=== PATIENT | female | born 1985 | race Caucasian/White ===

== ENCOUNTER → 2019-09-20 14:32 | Outpatient (BNVA) | payer MEDICARE, SELFPAY | PROVIDERS: Family Provider Family Medicine; PCP Family Medicine; Visit Provider Family Medicine | DX: E11.9 Type 2 diabetes mellitus without complications (principal); I10 Essential (primary) hypertension; F32.9 Major depressive disorder, single episode, unspecified; M62.838 Other muscle spasm; R60.0 Localized edema; K21.9 Gastro-esophageal reflux disease without esophagitis; G56.01 Carpal tunnel syndrome, right upper limb; F17.219 Nicotine dependence, cigarettes, with unspecified nicotine-induced disorders | CPT/HCPCS: 36415; 80053; 80061; 82044; 83036; 85025 ==

== ENCOUNTER 2019-10-01 22:08 | Emergency (ER) | payer MEDICARE, SELFPAY ==
[2019-10-01 22:14] VITALS: BP 143/96; PULSE 88; RESP 16; TEMP 36.4; O2SAT 97; BMI 68.3
--- NOTE | 2019-10-01 22:18 | W.ED.ABDPA2 ---
HPI - Abdominal Pain General: Chief Complaint: Abdominal Pain Stated Complaint: r sided pain Time Seen by Provider: 10/01/19 22:17 Source: patient Mode of arrival: ambulatory Limitations: no limitations History of Present Illness: HPI narrative: Patient is a 34-year-old female who presents to ED today with complaints of right-sided abdominal pain that began today; patient states approximately a month ago she was seen here for similar symptoms; patient states pain lasted 2 days and then subsided on its own; patient was told she had elevated LFTs; she is supposed to be receiving an outpatient gallbladder ultrasound because of this; she denies nausea, vomiting, diarrhea, constipation; she denies urinary symptoms, vaginal discharge, vaginal odor; no fever/chills MD elicited complaint: abdominal pain Onset (ago): hour(s) Pain Consistency: constant Location: None Exacerbating factors: nothing Relieving factors: nothing Associated Symptoms: Reports no associated symptoms; Denies change in bowel habits, chills, coffee ground emesis, diarrhea, dysuria, excessive flatus, fever(s), heartburn, hematochezia, hematemesis, fecal incontinence, melena, nausea, syncope and vomiting Review of Systems Const: Denies: fever or chills Eyes: Denies: change in vision or blurry vision ENMT: Denies: enlarged tonsils or painful swallowing Card: Denies: chest pain, palpitations, irregular heart rhythm, lightheadedness, syncope or shortness of breath on exertion Resp: Denies: shortness of breath, productive cough or pain on inspiration GI: Reports: abdominal pain; Denies: nausea, vomiting, vomiting blood, coffee grounds in vomit, difficulty swallowing, heartburn/indigestion, diarrhea, excessive passing of gas, fecal incontinence, change in bowel habits, painful bowel movements, rectal pain, blood in stool, black tarry stool or white/light colored stool : Denies: flank pain, difficulty urinating, painful urination, urinary frequency, urinary urgency or urinary hesitancy Musc: Denies: neck pain, back pain or joint pain Skin/Breast: Denies: rash Neuro: Denies: headache PFSH ED PFSH: Statuses (acute, chronic, etc) shown below reflect problem list status as previously entered and may not be historically accurate Medical History (Updated 10/02/19 @ 00:06 by KAMRON Boo) Benign essential HTN (Chronic) Bilateral chronic knee pain (Acute) Bilateral leg edema (Chronic) Diabetes mellitus, without long-term current use of insulin (Chronic) GERD (gastroesophageal reflux disease) (Chronic) Muscle spasms of both lower extremities (Acute) Prolonged depression (Chronic) Surgical History (Updated 09/20/19 @ 11:15 by Celina Ruiz DO) History of cholecystectomy (Acute) Social History (Updated 09/20/19 @ 11:02 by Radha Mcrae LPN) Smoking and tobacco status: current every day smoker cigarettes Packs smoked per day: 1 Alcohol intake: current Alcohol intake frequency: holidays/special occasions only Physical Exam Const: COMMON NORMALS: no apparent distress, oriented x3 and alert NUTRITIONAL APPEARANCE: obese morbidly obese HENMT: COMMON NORMALS: normocephalic and head/scalp atraumatic HEAD & SCALP: normocephalic and atraumatic Neck/C-Spine: COMMON NORMALS: full ROM, no lymphadenopathy, supple and no meningeal signs Chest: COMMONS NORMALS: inspection of chest normal Resp: COMMON NORMALS: normal respiratory effort and clear to auscultation bilaterally AUSCULTATION: clear to auscultation bilaterally Cardio: COMMON NORMALS: regular rate and regular rhythm RATE: regular rate RHYTHM: regular rhythm GI: COMMON NORMALS: normal to inspection, nondistended, normoactive bowel sounds and soft to palpation PALPATION: Yes soft, Yes tender Details: RUQ and Yes hepatomegaly : COMMON NORMALS: Yes no CVA tenderness BLADDER/KIDNEY EXAM: Yes no CVA tenderness Back/Pelvis: COMMON NORMALS: no CVA tenderness and thoracic and lumbar spine normal to inspection Extremity: COMMON NORMALS: normal to inspection Neuro: COMMON NORMALS: oriented x3 SENSORIUM/ORIENTATION: Yes alert MENINGEAL SIGNS: Yes no meningeal signs Skin: COMMON NORMALS: no rashes or lesions noted GENERAL SKIN EXAM: no rashes or lesions noted Course Vital Signs: Vital signs: Vital Signs Temperature 97.6 F 10/01/19 22:14 Pulse Rate 88 10/01/19 22:14 Respiratory Rate 16 10/01/19 22:14 Blood Pressure 143/96 10/01/19 22:14 Pulse Oximetry 97 10/01/19 22:14 MDM - Abdominal Pain MDM Narrative: Medical decision making narrative: Patient's gallbladder ultrasound showing cholelithiasis; LFTs are normal here (ALT is slightly elevated); she has no evidence for an acute cholecystitis or other emergent process; recommend she follow-up with primary care provider for continued discomfort; if pain persists she can be referred to a general surgeon for a possible elective cholecystectomy Lab Data: Labs: Lab Results 10/01/19 10/01/19 10/01/19 Range/Units 22:28 22:28 22:28 WBC 13.0 H (4.0-10.0) 10^3/ uL RBC 4.77 (4.1-5.3) 10^6/u L Hgb 13.7 (11.5-15.3) g/dL Hct 41.0 (37.0-47.0) % MCV 86.0 (81-99) fL MCH 28.7 (28.0-34.0) pg MCHC 33.4 (30.0-36.0) g/dL RDW 12.4 (12.1-15.1) % Plt Count 269 (130-400) 10^3/c mm MPV 11.4 H (7.4-10.4) fL Neut % (Auto) 72.0 % Lymph % (Auto) 18.6 % [place] % (Auto) 6.7 % Eos % (Auto) 1.5 % Baso % (Auto) 0.4 % Neut # (Auto) 9.3 H (1.8-7.7) 10^3/u L Lymph # (Auto) 2.4 (0.8-4.8) 10^3/u L [place] # (Auto) 0.9 (0.2-0.9) 10^3/u L Eos # (Auto) 0.2 (0.0-0.8) 10^3/u L Baso # (Auto) 0.1 (0.0-0.1) 10^3/u L Nucleated RBC % (a uto) 0 % Nucleated RBCs # 0.0 /100WBC Sodium 135 L (136-145) mmol/L Potassium 4.1 (3.5-5.1) mmol/L Chloride 97 L (98-107) mmol/L Carbon Dioxide 24 (22-29) mmol/L Anion Gap 18.1 (5-19) BUN 16 (6-20) mg/dL Creatinine 0.7 (0.5-0.9) mg/dL GFR Calculation 97.0 (90-130) mL/min Glucose 236 H (74-109) mg/dL Calcium 9.4 (8.5-10.5) mg/dL Total Bilirubin 0.2 (0.15-1.2) mg/dL AST 20 (0-32) U/L ALT 54 H (0-33) U/L Alkaline Phosphata se 103 (35-105) IU/L Total Protein 7.5 (6.6-8.7) g/dL Albumin 4.0 (3.5-5.2) g/dL Globulin 3.5 (1.3-4.6) g/dL Lipase 29 (13-60) U/L HCG, Qual Negative (Negative) Urine Color (Yellow) Urine Appearance (CLEAR) Urine pH (5-7) Ur Specific Gravit y (1.005-1.030) Urine Protein (Negative) Urine Glucose (UA) (Normal) Urine Ketones (Negative) Urine Occult Blood (Negative) Urine Nitrate (Negative) Urine Bilirubin (NEGATIVE) Urine Urobilinogen (Negative) mg/dL Ur Leukocyte Maame ase (Negative) 10/01/19 Range/Units 23:04 WBC (4.0-10.0) 10^3/ uL RBC (4.1-5.3) 10^6/u L Hgb (11.5-15.3) g/dL Hct (37.0-47.0) % MCV (81-99) fL MCH (28.0-34.0) pg MCHC (30.0-36.0) g/dL RDW (12.1-15.1) % Plt Count (130-400) 10^3/c mm MPV (7.4-10.4) fL Neut % (Auto) % Lymph % (Auto) % [place] % (Auto) % Eos % (Auto) % Baso % (Auto) % Neut # (Auto) (1.8-7.7) 10^3/u L Lymph # (Auto) (0.8-4.8) 10^3/u L [place] # (Auto) (0.2-0.9) 10^3/u L Eos # (Auto) (0.0-0.8) 10^3/u L Baso # (Auto) (0.0-0.1) 10^3/u L Nucleated RBC % (a uto) % Nucleated RBCs # /100WBC Sodium (136-145) mmol/L Potassium (3.5-5.1) mmol/L Chloride (98-107) mmol/L Carbon Dioxide (22-29) mmol/L Anion Gap (5-19) BUN (6-20) mg/dL Creatinine (0.5-0.9) mg/dL GFR Calculation (90-130) mL/min Glucose (74-109) mg/dL Calcium (8.5-10.5) mg/dL Total Bilirubin (0.15-1.2) mg/dL AST (0-32) U/L ALT (0-33) U/L Alkaline Phosphata se (35-105) IU/L Total Protein (6.6-8.7) g/dL Albumin (3.5-5.2) g/dL Globulin (1.3-4.6) g/dL Lipase (13-60) U/L HCG, Qual (Negative) Urine Color Yellow (Yellow) Urine Appearance Clear (CLEAR) Urine pH 5 (5-7) Ur Specific Gravit y 1.020 (1.005-1.030) Urine Protein Neg (Negative) Urine Glucose (UA) Norm (Normal) Urine Ketones Negative (Negative) Urine Occult Blood Neg (Negative) Urine Nitrate Negative (Negative) Urine Bilirubin Neg (NEGATIVE) Urine Urobilinogen Norm (Negative) mg/dL Ur Leukocyte Maame ase Negative (Negative) Discharge Plan Discharge Patient Disposition: Home, Self-Care Clinical Impression: Cholelithiasis without cholecystitis Condition: Stable Prescriptions: No Action citalopram 20 mg tablet 20 mg PO ONCE Qty: 90 RF: 1 metformin 500 mg tablet 500 mg PO BID Qty: 180 RF: 1 lisinopril-hydrochlorothiazide 20-25 mg tablet 1 tab PO ONCE Qty: 90 RF: 1 cyclobenzaprine 10 mg tablet 10 mg PO TID Qty: 270 RF: 1 spironolactone 25 mg tablet 25 mg PO ONCE Qty: 90 RF: 1 atenolol 25 mg tablet 25 mg PO BID Qty: 180 RF: 1 omeprazole 40 mg capsule,delayed release(DR/EC) 40 mg PO ONCE Qty: 30 RF: 0 (DME) wrist splint Qty: 1 RF: 0 tramadol 50 mg tablet 50 mg PO Q8H PRN (Reason: Pain) RF: 0 albuterol sulfate [Ventolin HFA] 90 mcg/actuation HFA aerosol inhaler 2 puff INHALATION Q6H PRN (Reason: Shortness Of Breath Or Wheezing) RF: 0 Trulicity 0.75 mg/0.5 mL pen injector 0.75 mg SUBCUT .once weekly Qty: 2 RF: 0 Discharge Orders: Discharge Order (Routine); Ordered 10/02/19 Ordered By: Sissy Luke Referrals: Celina Ruiz DO [Primary Care Provider] - Discharge Diet: Usual diet Discharge Activity: Increase activity as tolerated Activity Restrictions/Additional Instructions: Follow up with primary care next week for continued symptoms. Return to the emergency department for worsening pain, repetitive episodes of vomiting, or fevers greater than 100.4. Coding Level of Care Code ED Associate Professor Of Sociology for Leonela Escobedo Exam Problem Focused
--- NOTE | 2019-10-01 22:26 | USR_ITS ---
PROCEDURE INFORMATION: Exam: US Abdomen Limited, Right Upper Quadrant Exam date and time: 10/02/2019 12:02 AM Age: 34 years old Clinical indication: Abdominal pain; Acute; Additional info: Ruq pain TECHNIQUE: Imaging protocol: Real-time ultrasound of the abdomen with image documentation. Examination was focused on the right upper quadrant. COMPARISON: CT Abdomen/Pelvis Renal [id number] 08/24/2019 10:58 PM FINDINGS: Liver: Slight increased echogenicity of the liver may indicate fatty infiltration. Otherwise unremarkable liver, no focal abnormality. Gallbladder: The technologist notes an echogenic area in the gallbladder fossa, thought to possibly represent a gallbladder contracted around stones. However, the comparison CT scan shows evidence that the patient has had a prior cholecystectomy. Therefore, sonographic appearance at this time likely represents bowel adjacent to the gallbladder fossa. No obvious/visible fluid collection in the region of the gallbladder fossa. Common bile duct: No significant biliary dilation, common duct measures 6.5 mm. Pancreas: Visible pancreas appears essentially unremarkable. Much of the pancreas is obscured by bowel gas. Right kidney: Images of the right kidney show no hydronephrosis. US/US gall bladder [id number] IMPRESSION: 1. Prior cholecystectomy, no significant biliary tree dilation. 2. Other findings discussed above.
[2019-10-01 22:36] LABS: Basophils # 0.1 10^3/uL (0.0-0.1); Basophils % 0.4 %; Eosinophils # 0.2 10^3/uL (0.0-0.8); Eosinophils % 1.5 %; Hemoglobin 13.7 g/dL (11.5-15.3); Lymphocytes # 2.4 10^3/uL (0.8-4.8); Lymphocytes % 18.6 %; Mean Corpuscular HGB Conc 33.4 g/dL (30.0-36.0); Mean Corpuscular Hemoglobin 28.7 pg (28.0-34.0); Mean Platelet Volume 11.4 fL (7.4-10.4); Monocytes # 0.9 10^3/uL (0.2-0.9); Monocytes % 6.7 %; Neutrophils # 9.3 10^3/uL (1.8-7.7); Nucleated Red Blood Cells % 0 %; Platelet Count 269 10^3/cmm (130-400); Red Blood Count 4.77 10^6/uL (4.1-5.3); Red Cell Distribution Width 12.4 % (12.1-15.1)
[2019-10-01 23:01] LABS: Alanine Aminotransferase 54 U/L (0-33); Alkaline Phosphatase 103 IU/L (35-105); Anion Gap 18.1 (5-19); Aspartate Amino Transferase 20 U/L (0-32); Blood Urea Nitrogen 16 mg/dL (6-20); Calcium 9.4 mg/dL (8.5-10.5); Carbon Dioxide 24 mmol/L (22-29); Chloride 97 mmol/L (98-107); Globulin 3.5 g/dL (1.3-4.6); Glucose 236 mg/dL (74-109); Lipase 29 U/L (13-60); Potassium 4.1 mmol/L (3.5-5.1); Sodium 135 mmol/L (136-145); Total Bilirubin 0.2 mg/dL (0.15-1.2); Total Protein 7.5 g/dL (6.6-8.7)
[2019-10-01 23:05] LABS: HCG, Serum Qual Negative (Negative)
[2019-10-01 23:08] LABS: Add Urine Microscopic? NO
[2019-10-01 23:09] LABS: Bilirubin Urine Neg (NEGATIVE); Blood Urine Neg (Negative); Glucose Urine UA Norm (Normal); Ketones Urine Negative (Negative); Leukocyte Esterase Urine Negative (Negative); Nitrate Urine Negative (Negative); Protein Urine Neg (Negative); Urine Appearance Clear (CLEAR); Urine Color Yellow (Yellow); Urobilinogen Urine Norm (Negative); pH Urine 5 (5-7)
[2019-10-01] MEDS: acetaminophen 500 mg Tablet 1000 MG PO (23:52)
[2019-10-02 00:13] VITALS: PULSE 88; RESP 18; O2SAT 95
== END 2019-10-02 00:14 | disposition home or self-care (01) ==
PROVIDERS: Emergency Provider Physician Assistant; Family Provider Family Medicine; PCP Family Medicine
DX: K80.20 Calculus of gallbladder without cholecystitis without obstruction (principal); Z79.84 Long term (current) use of oral hypoglycemic drugs; I10 Essential (primary) hypertension; E11.9 Type 2 diabetes mellitus without complications; F17.210 Nicotine dependence, cigarettes, uncomplicated; K21.9 Gastro-esophageal reflux disease without esophagitis
CPT/HCPCS: 36415; 76705; 80053; 81003; 83690; 84703; 85025; 99281

== ENCOUNTER 2019-10-19 12:21 | Emergency (ER) | payer MEDICARE, SELFPAY ==
[2019-10-19 12:35] VITALS: PULSE 92; RESP 22; TEMP 36.7; O2SAT 95; BMI 58.6
--- NOTE | 2019-10-19 12:40 | CT_ITS ---
WS: [id number] CT cervical spine. Additional two-dimensional coronal and sagittal reconstruction was performed. 10/19 Clinical Data: fall Comparison: None. DLP: 1207.[address] scans at [facility] use at least one of these dose optimization techniques: automat ed exposure control; mA and/or kV adjustment per patient size (includes targeted exams where dose is matched to clinical indication); or iterative reconstruction. Findings: No compression fractures are seen. The disc heights are normal. The spinous processes are in good ali gnment. The odontoid is unremarkable. There is no prevertebral soft tissue swelling. The soft tissues of the cervical spine in the lung apices are not remarkable. C2-C3: No disc bulge, canal stenosis or foraminal stenosis is seen. C3-C4: No disc bulge, canal stenosis or foraminal stenosis is seen. C4-C5: No disc bulge, canal stenosis or foraminal stenosis is seen. C5-C6: No disc bulge, canal stenosis or foraminal stenosis is seen. C6-C7: No disc bulge, canal stenosis or foraminal stenosis is seen. C7-T1: No disc bulge, canal stenosis or foraminal stenosis is seen. CT/CT cervical spin wo con* [id number] Impression: Negative CT scan of the cervical spine.
--- NOTE | 2019-10-19 12:40 | CT_ITS ---
WS: [id number] CT scan of the head, 10/19/2019 Clinical Data: loc/fall Comparison: None. DLP: 761.[address] scans at [facility] use at least one of these dose optimization techniques: automat ed exposure control; mA and/or kV adjustment per patient size (includes targeted exams where dose is matched to clinical indication); or iterative reconstruction. Findings: The ventricular system is normal without shift. No recent infarct or hemorrhage is seen. There are no abnormal intracerebral masses. The cerebellum and brainstem are not remarkable. Bony windows of the skull and skull base show no fractures or erosions. The mastoid air cells, international recruiter al auditory canals, sella turcica, intraorbital contents, and paranasal sinuses are unremarkable. CT/CT head wo con* [id number] Impression: Negative CT scan of the head
--- NOTE | 2019-10-19 12:49 | W.ED.FALL ---
HPI - Fall General: Chief Complaint: Fall Stated Complaint: fall Time Seen by Provider: 10/19/19 12:40 History of Present Illness: HPI Narrative: Patient complains about neck pain and positive loss of consciousness after a fall in the shower this morning said she is out maybe 1 to 2 seconds. Denies any other problems. MD complaint: fall Onset (ago): hour(s) Fall from: standing Fall witnessed: no Place fall occurred: home Loss of consciousness: Seconds Length of LOC: second(s) (1 to 2-second) Prolonged down time: no Symptoms prior to fall: none Associated symptoms-after fall: Reports neck pain; Denies abdominal pain, chest pain or headache(s) Review of Systems Const: Denies: fever, chills or body aches Eyes: Denies: change in vision or blurry vision ENMT: Denies: throat pain or nasal congestion Card: Denies: chest pain or shortness of breath on exertion Resp: Denies: shortness of breath, productive cough or non-productive cough GI: Denies: abdominal pain, nausea or vomiting Musc: Reports: neck pain; Denies: extremity pain Skin/Breast: Denies: rash Neuro: Reports: other (LOC for 1 to 2 seconds); Denies: headache Psych: Denies: anxiety or depression Sunday/Lymph: Denies: easy bruising PFSH ED PFSH: Statuses (acute, chronic, etc) shown below reflect problem list status as previously entered and may not be historically accurate Medical History (Updated 10/10/19 @ 00:00 by ) Benign essential HTN Bilateral chronic knee pain Bilateral leg edema Diabetes mellitus, without long-term current use of insulin GERD (gastroesophageal reflux disease) Muscle spasms of both lower extremities Prolonged depression Surgical History (Updated 09/20/19 @ 11:15 by Celina Ruiz DO) History of cholecystectomy Social History (Updated 09/20/19 @ 11:02 by Radha Mcrae LPN) Smoking and tobacco status: current every day smoker cigarettes Packs smoked per day: 1 Alcohol intake: current Alcohol intake frequency: holidays/special occasions only Physical Exam Const: COMMON NORMALS: no apparent distress, average body habitus and oriented x3 HENMT: COMMON NORMALS: normocephalic HEAD & SCALP: normal to inspection and normocephalic FACE & SINUS: normal facial exam Eye: COMMON NORMALS: conjunctivae normal GENERAL EYE: normal appearance of both eyes CONJUNCTIVA: Yes conjunctivae normal Neck/C-Spine: COMMON NORMALS: no JVD GENERAL: Yes other CERVICAL SPINE: Yes pain with cervical ROM and Yes paracervical muscle tenderness Chest: COMMONS NORMALS: inspection of chest normal Resp: COMMON NORMALS: normal respiratory effort and clear to auscultation bilaterally AUSCULTATION: clear to auscultation bilaterally Cardio: COMMON NORMALS: no JVD, regular rate and regular rhythm RATE: regular rate RHYTHM: regular rhythm GI: COMMON NORMALS: normal to inspection, nondistended, normoactive bowel sounds Extremity: COMMON NORMALS: normal to inspection and full ROM Neuro: COMMON NORMALS: oriented x3 Course Vital Signs: Vital signs: Vital Signs Temperature 98.1 F 10/19/19 12:35 Pulse Rate 92 10/19/19 12:35 Respiratory Rate 22 H 10/19/19 12:35 Pulse Oximetry 95 10/19/19 12:35 Discharge Plan Discharge Prescriptions: No Action citalopram 20 mg tablet 20 mg PO ONCE Qty: 90 RF: 1 metformin 500 mg tablet 500 mg PO BID Qty: 180 RF: 1 lisinopril-hydrochlorothiazide 20-25 mg tablet 1 tab PO ONCE Qty: 90 RF: 1 cyclobenzaprine 10 mg tablet 10 mg PO TID Qty: 270 RF: 1 spironolactone 25 mg tablet 25 mg PO ONCE Qty: 90 RF: 1 atenolol 25 mg tablet 25 mg PO BID Qty: 180 RF: 1 (DME) wrist splint Qty: 1 RF: 0 tramadol 50 mg tablet 50 mg PO Q8H PRN (Reason: Pain) RF: 0 albuterol sulfate [Ventolin HFA] 90 mcg/actuation HFA aerosol inhaler 2 puff INHALATION Q6H PRN (Reason: Shortness Of Breath Or Wheezing) RF: 0 Trulicity 0.75 mg/0.5 mL pen injector 0.75 mg SUBCUT .once weekly Qty: 2 RF: 0 omeprazole 40 mg capsule,delayed release(DR/EC) 40 mg PO ONCE Qty: 30 RF: 0 Coding Level of Care Code ED Accounts Receivable Bookkeeper for Nagig Fanny
--- NOTE | 2019-10-19 13:30 | PC.NURSE ---
Pt returned from CT
[2019-10-19 13:35] VITALS: PULSE 89; RESP 20; O2SAT 96
[2019-10-19] MEDS: TRAMadol 50 mg Tablet 100 MG PO (13:46)
[2019-10-19 13:50] VITALS: BP 130/78; PULSE 88; RESP 18; O2SAT 97
== END 2019-10-19 13:56 | disposition home or self-care (01) ==
PROVIDERS: Emergency Provider Nurse Practitioner Family; Family Provider Family Medicine; PCP Family Medicine
DX: M54.2 Cervicalgia (principal); R55 Syncope and collapse; I10 Essential (primary) hypertension; E11.9 Type 2 diabetes mellitus without complications; F17.210 Nicotine dependence, cigarettes, uncomplicated; Z79.84 Long term (current) use of oral hypoglycemic drugs
CPT/HCPCS: 70450; 72125; 99281; 99283

== ENCOUNTER 2019-10-21 07:25 | Outpatient (CLI) | payer MEDICARE, MEDICAID, SELFPAY | END 2019-10-21 07:26 | disposition home or self-care (01) | LOC: RAD 07:29 | PROVIDERS: Family Provider Family Medicine; PCP Family Medicine; Visit Provider Family Medicine | DX: Z76.89 Persons encountering health services in other specified circumstances (principal) ==

== ENCOUNTER 2019-10-28 11:44 | Emergency (ER) | payer MEDICARE, MEDICAID, SELFPAY ==
[2019-10-28 11:51] VITALS: BP 143/88; PULSE 99; RESP 18; TEMP 36.4; O2SAT 94; BMI 67.6
--- NOTE | 2019-10-28 11:59 | ECG_ITS ---
Measurements Intervals [place] Rate: 93 P: 40 SC: 183 QRS: 28 QRSD: 110 T: 27 QT: 360 QTc: 448 SINUS RHYTHM INTERPRETATION BASED ON A DEFAULT AGE OF 40 YEARS No previous ECG available for comparison Electronically Signed On 10-28-2019 19:05:58 DAM WORKER by Bertha Willard M.D. [email or web address]
--- NOTE | 2019-10-28 11:59 | XR_ITS ---
WS: [id number] XR chest 1V portable [id number] REASON FOR EXAM: cp FINDINGS: Off the right hilum is a lymph node measures 2 cm in size. The heart and mediastinal interfaces were normal. The peripheral lungs were clear there is no pneumonia congestive heart failure, mass effect, other th an described in the right hilum. The apices are normal. XR/XR chest 1V portable [id number] IMPRESSION: A lymphadenopathy seen in the right hilum. The remaining chest is normal Follow-up evaluation this finding with either repeat chest from in 4-[address] evaluation.
[2019-10-28 12:27] LABS: Basophils # 0.1 10^3/uL (0.0-0.1); Basophils % 0.4 %; Eosinophils # 0.2 10^3/uL (0.0-0.8); Eosinophils % 1.5 %; Hematocrit 44.4 % (37.0-47.0); Hemoglobin 14.7 g/dL (11.5-15.3); Lymphocytes # 2.2 10^3/uL (0.8-4.8); Lymphocytes % 14.1 %; Mean Corpuscular HGB Conc 33.1 g/dL (30.0-36.0); Mean Corpuscular Hemoglobin 29.3 pg (28.0-34.0); Mean Corpuscular Volume 88.4 fL (81-99); Mean Platelet Volume 11.3 fL (7.4-10.4); Monocytes % 6.1 %; Neutrophils # 12.1 10^3/uL (1.8-7.7); Neutrophils % 76.6 %; Nucleated Red Blood Cells % 0 %; Platelet Count 362 10^3/cmm (130-400); Red Blood Count 5.02 10^6/uL (4.1-5.3); Red Cell Distribution Width 12.7 % (12.1-15.1); White Blood Count 15.8 10^3/uL (4.0-10.0)
[2019-10-28 12:48] LABS: Alanine Aminotransferase 384 U/L (0-33); Albumin Level 4.2 g/dL (3.5-5.2); Alkaline Phosphatase 247 IU/L (35-105); Anion Gap 17.1 (5-19); Aspartate Amino Transferase 110 U/L (0-32); Blood Urea Nitrogen 15 mg/dL (6-20); Calcium 9.8 mg/dL (8.5-10.5); Carbon Dioxide 23 mmol/L (22-29); Chloride 95 mmol/L (98-107); Globulin 3.4 g/dL (1.3-4.6); Glomerular Filtration Rate 72.6 mL/min (90-130); Glucose 237 mg/dL (65-115); Potassium 4.1 mmol/L (3.5-5.1); Sodium 131 mmol/L (136-145); Total Bilirubin 0.5 mg/dL (0.15-1.2); Total Protein 7.6 g/dL (6.6-8.7); Troponin(5th) Baseline 6 ng/mL (0-10)
--- NOTE | 2019-10-28 13:53 | ED_ITS ---
Entered by Sonam Danielle, acting as scribe for Alex Mcdermott MD, [facility] Oct 28, 2019 11:44 HPI - Chest Pain General: Chief Complaint: Chest Pain Stated Complaint: chest pain, SOB Time Seen by Provider: 10/28/19 13:52 Source: patient Mode of arrival: ambulatory Limitations: no limitations History of Present Illness: HPI narrative: 34 yo Female presents to ED with complaint of chest pain and shortness of breath. Pt states that she started having chest pain when she was making breakfast this morning. Pt states that the pain started in her left chest and went up and into her back. Pt states that her father of a heart attack. Pt states that her pain started about 2 hours ago and has gotten worse. Pt states that she has occasional sharp pains. MD complaint: chest pain Onset (ago): hour(s) Timing of current episode: episodic, increasing and still present Prior episodes: No Onset: during rest Pain location: left chest Pain radiation: back Pain scale (0-10): 10 Quality: sharp Relieving factors: nothing Exacerbating factors: nothing Associated symptoms: Reports dyspnea and nausea; Deny abdominal pain, fever(s), palpitations or vomiting Treatment prior to arrival: none Review of Systems General: Reports: 10 or more systems reviewed and unremarkable except in HPI and below Const: Denies: fever, chills or body aches Eyes: Denies: change in vision or blurry vision ENMT: Denies: throat pain, enlarged tonsils, painful swallowing, hoarseness, mouth pain or swelling of lips/tongue Card: Reports: chest pain; Denies: palpitations, irregular heart rhythm, edema or swelling of feet/ankles Resp: Reports: shortness of breath; Denies: productive cough or non-productive cough GI: Reports: nausea; Denies: abdominal pain or vomiting : Denies: flank pain, difficulty urinating, painful urination, urinary frequency, urinary urgency or urinary hesitancy Musc: Denies: neck pain, back pain or extremity swelling Skin/Breast: Denies: rash, itching or redness Neuro: Denies: headache, numbness in extremities or weakness in extremities Endo: Denies: excessive urination, excessive thirst or tired all the time PFS ED PFSH: Medical History Benign essential HTN Bilateral chronic knee pain Bilateral leg edema Diabetes mellitus, without long-term current use of insulin GERD (gastroesophageal reflux disease) Morbid obesity with BMI of 60.0-69.9, adult Muscle spasms of both lower extremities Prolonged depression Surgical History History of cholecystectomy Family History Other CAD (coronary artery disease) Cancer Diabetes Hypertension Social History Smoking and tobacco status: current every day smoker cigarettes Packs smoked per day: 1 Alcohol intake: current Alcohol intake frequency: holidays/special occasions only Physical Exam Const: COMMON NORMALS: no apparent distress, average body habitus, oriented x3, no limitations, healthy appearing, alert and well nourished HENMT: COMMON NORMALS: normocephalic, head/scalp atraumatic and moist oral mucous membranes HEAD & SCALP: normocephalic and atraumatic Eye: COMMON NORMALS: PERRL, EOMs intact bilaterally, conjunctivae normal and no scleral icterus CONJUNCTIVA: Yes conjunctivae normal PUPIL: Yes PERRL Neck/C-Spine: COMMON NORMALS: full ROM, supple, no meningeal signs, no JVD and no carotid bruits Chest: COMMONS NORMALS: inspection of chest normal and palpation of chest normal Resp: COMMON NORMALS: normal respiratory effort, no retractions, no use of accessory muscles, clear to auscultation bilaterally and percussion normal AUSCULTATION: clear to auscultation bilaterally PERCUSSION: percussion normal Cardio: COMMON NORMALS: no JVD, regular rate, regular rhythm, S1 normal heart sound, S2 normal heart sound, no gallops, no clicks, no murmurs, no rub and peripheral pulses 2+ throughout RATE: regular rate RHYTHM: regular rhythm HEART SOUNDS: S1 normal and S2 normal PERIPHERAL PULSES: pulses 2+ throughout GI: COMMON NORMALS: normal to inspection, nondistended, normoactive bowel sounds, soft to palpation, no hepatosplenomegaly, no masses and no bruits PA LPATION: Yes soft, Yes tender Details: LLQ and LUQ and Yes no hepatosplenomegaly : COMMON NORMALS: Yes no CVA tenderness BLADDER/KIDNEY EXAM: Yes no CVA tenderness Back/Pelvis: COMMON NORMALS: no CVA tenderness Extremity: COMMON NORMALS: normal to inspection, full ROM, normal capillary refill, no calf tenderness and no pedal edema Neuro: COMMON NORMALS: oriented x3 SENSORIUM/ORIENTATION: Yes alert MENINGEAL SIGNS: Yes no meningeal signs Skin: COMMON NORMALS: no rashes or lesions noted, no wounds, skin turgor normal, no jaundice, no petechiae and no mottling GENERAL SKIN EXAM: no rashes or lesions noted and turgor normal Course Consultations: Consultation #1: Dr. Almendarez, ARTIST MODEL jawbone breaker, obtain an US of the pelvis to check if there is torsion. Call back with the results. Time: 16:20 Consultation #2: Dr. Alonzo, ARTIST MODEL jawbone breaker. He viewed the CT and US and does not think there's an emergent need to address the cyst, however it needs to be taken care of, and likely needs to be surgically removed. Time: 18:00 Vital Signs: Vital signs: Vital Signs Temperature 97.5 F L 10/28/19 11:51 Pulse Rate 97 10/28/19 18:33 Respiratory Rate 18 10/28/19 18:33 Blood Pressure 115/53 10/28/19 18:33 Pulse Oximetry 94 10/28/19 18:33 MDM - Chest Pain MDM Narrative: Medical decision making narrative: 34-year-old female patient who presented to the emergency department with left-sided chest pain. Evaluation in the ED showed negative troponins, however CT scan done showed a large ovarian cyst, measuring about 11 cm. An ultrasound was obtained to characterize the cyst and to look for signs of torsion however because of the patient's body habitus he does not appear to be torsed. She also does not appear to be in a lot of pain. Other incidental findings on her CT was severe spinal stenosis at T10-T11. She states that she has an appointment coming up with women's health soon. A referral was made to refer her to the neurosurgeon for the spinal stenosis. She was discharged home on oral pain medication pending when she is evaluated by gynecology. Medical Records: Attestation: I reviewed the patient's medical records. Lab Data: Attestation: I reviewed the patient's lab results. Labs: Lab Results 10/28/19 10/28/19 10/28/19 Range/Units 12:20 12:20 12:20 WBC 15.8 H (4.0-10.0) 10^3/ uL RBC 5.02 (4.1-5.3) 10^6/u L Hgb 14.7 (11.5-15.3) g/dL Hct 44.4 (37.0-47.0) % MCV 88.4 (81-99) fL MCH 29.3 (28.0-34.0) pg MCHC 33.1 (30.0-36.0) g/dL RDW 12.7 (12.1-15.1) % Plt Count 362 (130-400) 10^3/c mm MPV 11.3 H (7.4-10.4) fL Neut % (Auto) 76.6 % Lymph % (Auto) 14.1 % Gaston % (Auto) 6.1 % Eos % (Auto) 1.5 % Baso % (Auto) 0.4 % Neut # (Auto) 12.1 H (1.8-7.7) 10^3/u L Lymph # (Auto) 2.2 (0.8-4.8) 10^3/u L Gaston # (Auto) 1.0 H (0.2-0.9) 10^3/u L Eos # (Auto) 0.2 (0.0-0.8) 10^3/u L Baso # (Auto) 0.1 (0.0-0.1) 10^3/u L Nucleated RBC % (a uto) 0 % Nucleated RBCs # 0.0 /100WBC Sodium 131 L (136-145) mmol/L Potassium 4.1 (3.5-5.1) mmol/L Chloride 95 L (98-107) mmol/L Carbon Dioxide 23 (22-29) mmol/L Anion Gap 17.1 (5-19) BUN 15 (6-20) mg/dL Creatinine 0.9 (0.5-0.9) mg/dL GFR Calculation 72.6 L (90-130) mL/min Glucose 237 H (65-115) mg/dL Calcium 9.8 (8.5-10.5) mg/dL Total Bilirubin 0.5 (0.15-1.2) mg/dL AST 110 H (0-32) U/L ALT 384 H (0-33) U/L Alkaline Phosphata se 247 H (35-105) IU/L Troponin I 6 Hour (0-10) ng/mL Troponin I Hi Sens Del (0-12) ng/L Troponin T Baselin e 6 (0-10) ng/mL Troponin T 120 Min chalkyitsik (0-10) ng/mL Delta Troponin T (0-10) ABS# Total Protein 7.6 (6.6-8.7) g/dL Albumin 4.2 (3.5-5.2) g/dL Globulin 3.4 (1.3-4.6) g/dL 10/28/19 10/28/19 Range/Units 14:27 18:20 WBC (4.0-10.0) 10^3/ uL RBC (4.1-5.3) 10^6/u L Hgb (11.5-15.3) g/dL Hct (37.0-47.0) % MCV (81-99) fL MCH (28.0-34.0) pg MCHC (30.0-36.0) g/dL RDW (12.1-15.1) % Plt Count (130-400) 10^3/c mm MPV (7.4-10.4) fL Neut % (Auto) % Lymph % (Auto) % Gaston % (Auto) % Eos % (Auto) % Baso % (Auto) % Neut # (Auto) (1.8-7.7) 10^3/u L Lymph # (Auto) (0.8-4.8) 10^3/u L Gaston # (Auto) (0.2-0.9) 10^3/u L Eos # (Auto) (0.0-0.8) 10^3/u L Baso # (Auto) (0.0-0.1) 10^3/u L Nucleated RBC % (a uto) % Nucleated RBCs # /100WBC Sodium (136-145) mmol/L Potassium (3.5-5.1) mmol/L Chloride (98-107) mmol/L Carbon Dioxide (22-29) mmol/L Anion Gap (5-19) BUN (6-20) mg/dL Creatinine (0.5-0.9) mg/dL GFR Calculation (90-130) mL/min Glucose (65-115) mg/dL Calcium (8.5-10.5) mg/dL Total Bilirubin (0.15-1.2) mg/dL AST (0-32) U/L ALT (0-33) U/L Alkaline Phosphata se (35-105) IU/L Troponin I 6 Hour 6.00 (0-10) ng/mL Troponin I Hi Sens Del 0 (0-12) ng/L Troponin T Baselin e (0-10) ng/mL Troponin T 120 Min chalkyitsik 6.00 (0-10) ng/mL Delta Troponin T 0 (0-10) ABS# Total Protein (6.6-8.7) g/dL Albumin (3.5-5.2) g/dL Globulin (1.3-4.6) g/dL Imaging Data^: CXR: Radiologist's impression: [address] [address] XRay Report Signed Patient: William Curry #: [id number] : 1985Acct#:[id number] Age/Sex: 34 / FADM Date: 10/28/19 [facility] Att[facility] Dr: Ordering Provider/Ordering MD: Kat Yang MD Date of Service: 10/28/19 Procedure(s): XR chest 1V portable [id number] Accession Number(s): [id number] Report Number: [id number] WS: [id number] XR chest 1V portable [id number] REASON FOR EXAM: cp FINDINGS: Off the right hilum is a lymph node measures 2 cm in size. The heart and mediastinal interfaces were normal. The peripheral lungs were clear there is no pneumonia congestive heart failure, mass effect, other than described in the right hilum. The apices are normal. XR/XR chest 1V portable [id number] IMPRESSION: A lymphadenopathy seen in the right hilum. The remaining chest is normal Follow-up evaluation this finding with either repeat chest from in 4-[address] evaluation. Dictated By:Praneeth Aj DO Signed By:Aj,Praneeth A DOSigned Date/Time:10/28/19 1223 DD/ 1220 CT Abd/Pel: Radiologist's impression: [facility] [address] [place] [address] CT Scan Report Signed Patient: William Curry #: [id number] : 1985Acct#:[id number] Age/Sex: 34 / FADM Date: 10/28/19 Loc: ERRoom/Bed: Attending Dr: Ordering Provider/Ordering MD: Alex Mcdermott MD, [facility] Date of Service: 10/28/19 Procedure(s): CT abdomen pelvis w con* [id number] Accession Number(s): [id number] Report Number: [id number] WS: [id number] CT ABDOMEN PELVIS TECHNIQUE: Contrast-enhanced CT of the abdomen and pelvis with coronal and sagittal reformatted images. CLINICAL INFORMATION: elevated liver enzymes, abdominal pain COMPARISON: CT DLP: 2257.[address] scans at [facility] use at least one of these dose optimization techniques: automated exposure control; mA and/or kV adjustment per patient size (includes targeted exams where dose is matched to clinical indication); or iterative reconstruction. FINDINGS: Diffuse fatty infiltration of the liver. Enlargement of the right hepatic lobe. Normal spleen. Cholecystectomy clips. Normal pancreas. Tiny esophageal hiatal hernia. Adrenal glands are normal. No hydronephrosis. No abdominal lymphadenopathy. Normal sigmoid colon. Colon is decompressed. No evidence of small or large bowel obstruction. Lung bases are well aerated. Lumbar curve convex right. Large low-attenuation lesion within the lower abdomen and pelvis measuring 11.1 x 8.9 x 9.3 CM. This directly abuts adjacent small bowel loops with displacement. No evidence of bowel obstruction. This is interposed between the ovaries and likely is ovarian in origin. This lesion appears unchanged since the prior CT and August 24, 2019. Differential considerations include serous or mucinous cystadenoma/cystadenocarcinoma. Recommend further evaluation with ultrasound and PRODUCTION ZONE LEADER consult for resection. No free fluid in the pelvis.Moderate to severe central canal stenosis T10-11 and due to facet arthropathy and ligamentum flavum hypertrophy. Small disc osteophyte protrusion at this level. This can be further evaluated with MRI. Notified Adegoke I Sharron, MD [facility] at 10/28/2019 3:[address]/CT abdomen pelvis w con* [id number] IMPRESSION: 1. Large low-attenuation well-circumscribed mass within the lower abdomen and pelvis. This directly abuts both ovaries and is likely ovarian or PRODUCTION ZONE LEADER in origin measuring 11.2 x 8.9 x 9.3 CM. Primary differential considerations include serous or mucinous cystic neoplasm. Recommend further evaluation with ultrasound and PRODUCTION ZONE LEADER consultation for resection. 2. Hepatomegaly with diffuse fatty infiltration. 3. Prior cholecystectomy. 4. No hydronephrosis in either kidney. 5. No evidence of small or large bowel obstruction. 6. Moderate to severe central canal stenosis T10-11 due to facet arthropathy and ligamentum flavum hypertrophy. Small disc osteophyte protrusion at this level. This can be further evaluated with MRI elective basis. Dictated By:Yaw Hanley MD Signed By:Yaw Hanley MDSigned Date/Time:10/28/19 1602 DD/ 1539 US Pelvic/Transvaginal: Radiologist's impression: [place] [address] Ultrasound Report Signed Patient: William Curry #: [id number] : 1985Acct#:[id number] Age/Sex: 34 / FADM Date: 10/28/19 Loc: ERRoom/Bed: Attending Dr: Ordering Provider/Ordering MD: Alex Mcdermott MD, [facility] Date of Service: 10/28/19 Procedure(s): US pelvic with transvaginal Accession Number(s): [id number] Report Number: [id number] PROCEDURE INFORMATION: Exam: US Pelvis Complete, Transabdominal Exam date and time: 10/28/2019 4:25 PM Age: 34 years old Clinical indication: Abdominal pain and pelvic pain; Lower abdomen; Additional info: Left ovarian cyst. ? Torsion TECHNIQUE: Imaging protocol: Real-time transabdominal pelvic ultrasound with image documentation. Complete exam. Other technique: Study includes transabdominal and endovaginal sonography than is several examinations. COMPARISON: CT abdomen pelvis w con* [id number] 10/28/2019 3:[address] abdomen pelvis w con* [id number] 08/25/2019 12:43:[address] Abdomen/Pelvis Renal [id number] 08/24/2019 10:58:00 PM FINDINGS: Uterus/cervix: Uterus measures 10.3 x 4.6 x 6.1 cm and is basically unremarkable in appearance. Endometrium is 5.8 mm in thickness on the endovaginal scan. There is a small nabothian cyst in the cervix. There is a large cyst superior to the uterus, possibly with septations. This measures 9.5 x 9.3 x 11.7 cm and corresponds with the low-density mass seen on today's CT scan. On this and previous CT scans, this appears to be arising from the left ovary and could represent ovarian cystadenoma. Further evaluation and gynecologic consultation is recommended. Right adnexa: Nonvisualized Left adnexa: Not visualized. Free fluid: None. Bladder: Normal. US/US pelvic with transvaginal IMPRESSION: 1. Large cystic mass superior to the uterus as seen on prior CT scan. Further evaluation is suggested. 2. Neither of the ovaries is visualized Dictated By:Ayden Culp Signed By:Mick Culpigned Date/Time:10/28/191743 DD/ 41 Discharge Plan Discharge Patient Disposition: Home, Self-Care Clinical Impression: Morbid obesity with BMI of 60.0-69.9, adult Ovarian cyst Qualifiers: Laterality: left Qualified Code(s): N83.202 - Unspecified ovarian cyst, left side Spinal stenosis Qualifiers: Spinal region: thoracic Qualified Code(s): M48.04 - Spinal stenosis, thoracic region Condition: Stable Prescriptions: [place] 5-325 mg tablet 1 tab PO Q6H PRN (Reason: pain) Qty: 20 RF: 0 Continued dulaglutide 1.5 mg/0.5 mL pen injector 1.5 mg SUBCUT Q7D Qty: 2 RF: 0 metformin 500 mg tablet 500 mg PO BID Qty: 180 RF: 1 cyclobenzaprine 10 mg tablet 10 mg PO TID Qty: 270 RF: 1 atenolol 25 mg tablet 25 mg PO BID Qty: 180 RF: 1 albuterol sulfate [Ventolin HFA] 90 mcg/actuation HFA aerosol inhaler 2 puff INHALATION Q6H PRN (Reason: Shortness Of Breath Or Wheezing) RF: 0 omeprazole 40 mg capsule,delayed release(DR/EC) 40 mg PO DAILY RF: 0 spironolactone 25 mg tablet 25 mg PO DAILY RF: 0 citalopram 20 mg tablet 20 mg PO DAILY RF: 0 lisinopril-hydrochlorothiazide 20-25 mg tablet 1 tab PO DAILY RF: 0 Held tramadol 50 mg tablet 50 mg PO TID PRN (Reason: Pain) 30 Days Qty: 90 RF: 0 Hold Instructions: Resume on 11/04/19. Do not take tramadol while taking the hydrocodone Discharge Orders: Discharge Order (Routine); Ordered 10/28/19 Ordered By: Alex Mcdermott Referrals: Celina Ruiz DO [Primary Care Provider] - 4-7 days Patient Instructions: Ovarian Cyst (ED) Activity Restrictions/Additional Instructions: Return for any new or worsening symptoms. Follow-up with women's health as scheduled, call them to see if they can move up the appointment so you can be seen sooner. You will be contacted by case management to set up an appointment with neurosurgery for the spinal stenosis. Take new pain medication as needed for severe pain. Do not take tramadol while you are taking the hydrocodone as the combination can cause an overdose and lead to . Discharge Date/Time: 10/28/19 18:40 Coding Level of Care Code ED Application Tester for Chg Fwd Exam Comprehensive The documentation recorded by the Lolis vincent Carmen, accurately reflects the service I personally performed and the decisions made by Sharron huizar Adegoke I, MD, [facility] Oct 28, 2019 11:44
--- NOTE | 2019-10-28 13:59 | ECG_ITS ---
Measurements Intervals [place] Rate: 90 P: 40 CO: 183 QRS: 34 QRSD: 110 T: 29 QT: 374 QTc: 458 SINUS RHYTHM LEFT ATRIAL ENLARGEMENT [-0.15mV P WAVE IN V1/V2] No previous ECG available for comparison Electronically Signed On 10-28-2019 19:12:49 CHILD CARE PROVIDER by Bertha Willard M.D. [id number]
--- NOTE | 2019-10-28 14:09 | CT_ITS ---
WS: [id number] CT ABDOMEN PELVIS TECHNIQUE: Contrast-enhanced CT of the abdomen and pelvis with coronal and sagittal reformatted image s. CLINICAL INFORMATION: elevated liver enzymes, abdominal pain COMPARISON: CT DLP: 2257.[address] scans at [facility] use at least one of these dose optimization techniques: automat ed exposure control; mA and/or kV adjustment per patient size (includes targeted exams where dose is matched to clinical indication); or iterative reconstruction. FINDINGS: Diffuse fatty infiltration of the liver. Enlargement of the right hepatic lobe. Normal spleen. Cholec ystectomy clips. Normal pancreas. Tiny esophageal hiatal hernia. Adrenal glands are normal. No hydron ephrosis. No abdominal lymphadenopathy. Normal sigmoid colon. Colon is decompressed. No evidence of small or large bowel obstruction. Lung ba ses are well aerated. Lumbar curve convex right. Large low-attenuation lesion within the lower abdomen and pelvis measuring 11.1 x 8.9 x 9.3 CM. This directly abuts adjacent small bowel loops with displacement. No evidence of bowel obstruction. This i s interposed between the ovaries and likely is ovarian in origin. This lesion appears unchanged since the prior CT and August 24, 2019. Differential considerations include serous or mucinous cystadenoma/cystadenocarcinoma. Recommend further evaluation with ultrasound and COMMERCIAL HOUSEKEEPER consult for res ection. No free fluid in the pelvis.Moderate to severe central canal stenosis T10-11 and due to facet arthrop athy and ligamentum flavum hypertrophy. Small disc osteophyte protrusion at this level. This can be f urther evaluated with MRI. Notified Alex Mcdermott MD [facility] [place] at 10/28/2019 3:[address]/CT abdomen pelvis w con* [id number] IMPRESSION: 1. Large low-attenuation well-circumscribed mass within the lower abdomen and pelvis. This directly abuts both ovaries and is likely ovarian or COMMERCIAL HOUSEKEEPER in origin measuring 11.2 x 8.9 x 9.3 CM. Primary differential considerations include ser ous or mucinous cystic neoplasm. Recommend further evaluation with ultrasound a nd COMMERCIAL HOUSEKEEPER consultation for resection. 2. Hepatomegaly with diffuse fatty infiltration. 3. Prior cholecystectomy. 4. No hydronephrosis in either kidney. 5. No evidence of small or large bowel obstruction. 6. Moderate to severe central canal stenosis T10-11 due to facet arthropathy a nd ligamentum flavum hypertrophy. Small disc osteophyte protrusion at this leve l. This can be further evaluated with MRI elective basis.
[2019-10-28] MEDS: nitroglycerin 0.4 mg sublingual Tablet SUBLINGUAL (14:33)
[2019-10-28] MEDS: aspirin 81 mg Chew Tablet 324 MG PO (14:34)
[2019-10-28 14:36] VITALS: BP 109/50; PULSE 103; RESP 18; O2SAT 94
[2019-10-28 14:55] LABS: Troponin 5 2HR Delta 0 ABS# (0-10)
[2019-10-28] MEDS: iohexol 300 mg/mL 100 mL Btl IV (15:17)
--- NOTE | 2019-10-28 16:15 | USR_ITS ---
PROCEDURE INFORMATION: Exam: US Pelvis Complete, Transabdominal Exam date and time: 10/28/2019 4:25 PM Age: 34 years old Clinical indication: Abdominal pain and pelvic pain; Lower abdomen; Additional info: Left ovarian cyst. ? Torsion TECHNIQUE: Imaging protocol: Real-time transabdominal pelvic ultrasound with image documentation. Complete exam. Other technique: Study includes transabdominal and endovaginal sonography than is several examinations. COMPARISON: CT abdomen pelvis w con* [id number] 10/28/2019 3:[address] abdomen pelvis w con* [id number] 08/25/2019 12:43:[address] Abdomen/Pelvis Renal [id number] 08/24/2019 10:58:00 PM FINDINGS: Uterus/cervix: Uterus measures 10.3 x 4.6 x 6.1 cm and is basically unremarkable in appearance. Endometrium is 5.8 mm in thickness on the endovaginal scan. There is a small nabothian cyst in the cervix. There is a large cyst superior to the uterus, possibly with septations. This measures 9.5 x 9.3 x 11.7 cm and corresponds with the low-density mass seen on today's CT scan. On this and previous CT scans, this appears to be arising from the left ovary and could represent ovarian cystadenoma. Further evaluation and gynecologic consultation is recommended. Right adnexa: Nonvisualized Left adnexa: Not visualized. Free fluid: None. Bladder: Normal. US/US pelvic with transvaginal IMPRESSION: 1. Large cystic mass superior to the uterus as seen on prior CT scan. Further evaluation is suggested. 2. Neither of the ovaries is visualized
[2019-10-28] MEDS: lidocaine 2% viscous 15 ML, aluminum-mag hydrox-simethicon 30 ML, sucralfate oral liq 1 GM PO (16:30)
[2019-10-28] MEDS: ondansetron 2 mg/ML SDV 2 mL 4 MG IVP (16:59)
[2019-10-28 17:01] VITALS: RESP 18
[2019-10-28] MEDS: morphine 4 mg/mL SDV 1 mL 10 MG IVP (17:01)
[2019-10-28 17:16] VITALS: BP 128/50; PULSE 91; RESP 18; O2SAT 98
--- NOTE | 2019-10-28 17:59 | ECG_ITS ---
Measurements Intervals [place] Rate: 91 P: 38 FL: 196 QRS: 32 QRSD: 90 T: 23 QT: 368 QTc: 454 SINUS RHYTHM LEFT ATRIAL ENLARGEMENT [-0.15mV P WAVE IN V1/V2] No previous ECG available for comparison Electronically Signed On 10-28-2019 19:13:15 PAPER MILL MANAGER by Bertha Willard M.D. [id number]
--- NOTE | 2019-10-28 18:16 | PC.NURSE ---
AFTER US AND PAIN MEDS PATIENT
[2019-10-28 18:33] VITALS: BP 115/53; PULSE 97; RESP 18; O2SAT 94
[2019-10-28 18:51] LABS: Troponin 5 6HR Delta 0 ng/L (0-12)
--- NOTE | 2019-10-29 11:05 | DCPLANNER ---
Addendum entered by Peyton Simpson 10/29/19 13:29: Tim from Dr. Mills office called an appointment is scheduled for Sunday December 08, 2019 at 8:00 with Shiloh Barrios. Clinic will call patient with appointment information. Original Note: cadd manager had message to schedule a follow up appointment for patient with Dr. Field. cadd manager called the office of Dr. Field, spoke with Tim, gave clinic patients information, was told that it would be printed and reviewed. Clinic will call correctional counselor/case manager and patient with appointment information. cadd manager also was asked to call [facility] to see if patients appointment scheduled for 11.12.19 could be moved up any sooner. cadd manager called [facility], spoke with Joann. cadd manager was told that patients information would be printed and reviewed. Clinic will call correctional counselor/case manager and patient with appointment information.
--- NOTE | 2019-11-02 08:36 | DCPLANNER ---
Patient has a follow up appointment scheduled for Tuesday, November 12, 2019 at 2:[address] [facility].
--- NOTE | 2019-11-17 14:07 | DCPLANNER ---
Patient did attend appointment [facility] with [facility]
--- NOTE | 2020-02-01 07:43 | DCPLANNER ---
Patient did attend appointment scheduled with Dr. Mills office.
== END 2019-10-28 18:40 | disposition home or self-care (01) ==
PROVIDERS: Emergency Medicine; Emergency Provider Family Medicine; Family Provider Family Medicine; PCP Family Medicine
DX: N83.202 Unspecified ovarian cyst, left side (principal); M48.04 Spinal stenosis, thoracic region; I10 Essential (primary) hypertension; E11.9 Type 2 diabetes mellitus without complications; E66.01 Morbid (severe) obesity due to excess calories; F17.210 Nicotine dependence, cigarettes, uncomplicated; Z79.84 Long term (current) use of oral hypoglycemic drugs; Z68.44 Body mass index [BMI] 60.0-69.9, adult; Z82.49 Family history of ischemic heart disease and other diseases of the circulatory system
CPT/HCPCS: 71045; 74177; 76830; 76856; 80053; 84484; 85025; 93005; 96374; 96375; 99281; 99284; J2270; J2405; Q9967

== ENCOUNTER 2019-11-02 00:37 | Emergency (ER) | payer MEDICARE, MEDICAID, SELFPAY ==
[2019-11-02 00:39] VITALS: BP 137/93; PULSE 96; RESP 28; TEMP 37.1; O2SAT 96; BMI 67.6
--- NOTE | 2019-11-02 00:44 | US_ITS ---
WS: [id number] Pelvic ultrasound, 11/02/2019 Clinical Data: Pain Comparison: Pelvic ultrasound, 10/28/2019. Findings: The uterus measures 7.5 cm x 4.3 cm x 4.4 cm. The endometrium is 0.7 cm. No intrauterine or abnormal intrauterine mass is seen. The left ovary measures 3.9 cm x 2.1 cm x 2.9 cm with a large simple cyst measuring 9.04 x 11.48 cm. . The right ovary measures 2.6 cm x 2.1 cm x 2.3 cm with no cysts or masses. No fluid is present in the cul-de-sac. US/US pelvic with transvaginal Impression: No change in large left ovarian cyst.
--- NOTE | 2019-11-02 00:47 | ED_ITS ---
Entered by Giuliana Coronado, acting as scribe for OwenSwathi kraft Ria HPI - Abdominal Pain General: Chief Complaint: Abdominal Pain Stated Complaint: L OVARY CYST/PAIN Time Seen by Provider: 11/02/19 00:39 Source: patient Mode of arrival: ambulatory Limitations: no limitations History of Present Illness: HPI narrative: 34 yo f came to the er for pov for abd pain. She states she has a history ovarian cysts and this pain feels like ovarian cyst that she is had in the past. She denies any dysuria, hematuria, vaginal discharge or bleeding, flank pain, vomiting, fever or any other complaints. She denies having recent intercourse or anything that may have caused or exacerbated this pain. MD elicited complaint: abdominal pain Associated Symptoms: Denies chills, coffee ground emesis, constipation, GI cramping, diarrhea, dysuria, fever(s), hematochezia, hematuria, hematemesis, melena, nausea, syncope and vomiting Review of Systems General: Reports: other (negative unless marked) Const: Denies: fever, chills, body aches, fatigue, malaise or diaphoresis Eyes: Denies: change in vision or blurry vision ENMT: Denies: throat pain, painful swallowing, hoarseness, ear pain, ear discharge, Change in hearing or nasal discharge Card: Denies: chest pain, palpitations, irregular heart rhythm, syncope, pre- syncope, shortness of breath on exertion or shortness of breath when lying down Resp: Denies: shortness of breath, productive cough, non-productive cough, wheezing, coughing up blood or chest congestion GI: Denies: abdominal pain, nausea, vomiting, vomiting blood, coffee grounds in vomit, diarrhea, constipation, cramping, blood in stool or black tarry stool : Denies: flank pain, painful urination, urinary frequency, urinary urgency, decreased urine ouput, urinary incontinence or blood in urine Musc: Denies: neck pain, back pain, extremity pain, extremity swelling, joint pain, joint swelling, joint warmth or joint stiffness Skin/Breast: Denies: rash, skin tenderness or yellow skin Neuro: Denies: headache, numbness in extremities, weakness in extremities, changes in sensation, lack of coordination, difficulty walking, dizziness, vertigo or confusion Endo: Denies: excessive thirst, tired all the time, cold intolerance, excessive sweating, flushing or hot flashes Sunday/Lymph: Denies: easy bruising, easy bleeding, petechiae or enlarged lymph nodes All/Imm: Denies: hives, throat swelling, tongue swelling, facial swelling or acute wheezing PFSH ED PFSH: Medical History Benign essential HTN Bilateral chronic knee pain Bilateral leg edema Diabetes mellitus, without long-term current use of insulin GERD (gastroesophageal reflux disease) Morbid obesity with BMI of 60.0-69.9, adult Muscle spasms of both lower extremities Prolonged depression Surgical History History of cholecystectomy Family History Other CAD (coronary artery disease) Cancer Diabetes Hypertension Social History Smoking and tobacco status: current every day smoker cigarettes Packs smoked pe r day: 1 Alcohol intake: current Alcohol intake frequency: holidays/special occasions only Physical Exam Const: COMMON NORMALS: no apparent distress, oriented x3, no limitations, healthy appearing and well nourished EXAM LIMITATIONS: no altered mental status GENERAL APPEARANCE: cooperative, well kempt and well developed ORIENTATION/CONSCIOUSNESS: Yes awake HENMT: COMMON NORMALS: normocephalic, head/scalp atraumatic, hearing grossly normal bilaterally, external ears normal, EAC's normal, external nose normal and moist oral mucous membranes HEAD & SCALP: normal to inspection, normocephalic and atraumatic FACE & SINUS: normal facial exam and face symmetric NOSE: external nose normal and nares normal EXTERNAL EAR: Yes external ears normal EXTERNAL AUDITORY CANAL: EAC's normal MOUTH: oral and palatal mucosa normal and tongue normal Eye: COMMON NORMALS: PERRL, EOMs intact bilaterally, conjunctivae normal and no scleral icterus GENERAL EYE: normal appearance of both eyes and normal light reflex CONJUNCTIVA: Yes conjunctivae normal SCLERA: sclerae normal CORNEA: Yes corneas normal PUPIL: Yes PERRL DIRECT OPHTHALMOSCOPY: Yes normal light reflex Neck/C-Spine: COMMON NORMALS: full ROM, no lymphadenopathy, supple, no meningeal signs and no JVD GENERAL: Yes normal visual inspection and Yes trachea midline CERVICAL SPINE: Yes cervical ROM normal Chest: COMMONS NORMALS: inspection of chest normal and palpation of chest normal Resp: COMMON NORMALS: normal respiratory effort, no retractions, no use of accessory muscles and clear to auscultation bilaterally EFFORT & INSPECTION: Yes able to speak in complete sentences AUSCULTATION: clear to auscultation bilaterally Cardio: COMMON NORMALS: no JVD, regular rate, regular rhythm, S1 normal heart sound, S2 normal heart sound, no gallops, no clicks, no murmurs and no rub JUGULAR VENOUS DISTENTION: no JVD RATE: regular rate RHYTHM: regular rhythm HEART SOUNDS: S1 normal and S2 normal GI: COMMON NORMALS: soft to palpation, non-tender, no hepatosplenomegaly and no masses INSPECTION: Yes normal to inspection PALPATION: Yes soft and Yes no hepatosplenomegaly : COMMON NORMALS: Yes no CVA tenderness BLADDER/KIDNEY EXAM: Yes no CVA tenderness EXTERNAL FEMALE EXAM: Yes other (Patient refuses gynecologic /pelvic exam.) Back/Pelvis: COMMON NORMALS: no CVA tenderness, thoracic and lumbar spine normal to inspection, no thoracic nor lumbar tenderness and thoraco-lumbar ROM normal Extremity: COMMON NORMALS: normal to inspection, full ROM, normal capillary refill, no joint enlargement, no clubbing, cyanosis or edema and no calf tenderness Neuro: COMMON NORMALS: oriented x3, CN's II-XII intact bilaterally, moves all extremities, no focal motor deficits and no sensory deficits noted MENINGEAL SIGNS: Yes no meningeal signs Psych: COMMON NORMALS: mental status grossly normal, thought process normal, cooperative, affect normal, speech normal and activity/motor behavior normal APPEARANCE: Yes well kempt SPEECH: Yes normal speech THOUGHT PROCESS: normal thought process Skin: COMMON NORMALS: no rashes or lesions noted, skin turgor normal, no jaundice, no petechiae and no mottling GENERAL SKIN EXAM: no rashes or lesions noted and turgor normal Course Vital Signs: Vital signs: Vital Signs Temperature 98.8 F 11/02/19 00:39 Pulse Rate 93 11/02/19 02:48 Respiratory Rate 16 11/02/19 02:48 Blood Pressure 113/73 11/02/19 02:48 Pulse Oximetry 94 11/02/19 02:48 MDM - Abdominal Pain MDM Narrative: Medical decision making narrative: The patient's case was reviewed with Dr. Moe, he states the patient can go home and follow-up with him in the office. I reviewed this plan with the patient and this is how she would like to proceed. She still refusing pelvic exam. The patient understands that she is at risk of ovarian torsion or ruptured cyst which may cause a great deal more pain and she understands if this happens she will need to return to the ER immediately for recheck. Differential Diagnosis: Differential diagnosis abdominal pain: Likely abdominal pain, calculus of kidney, diverticulitis, gastroenteritis and small bowel obstruction Lab Data: Attestation: I reviewed the patient's lab results. Labs: Lab Results 11/02/19 11/02/19 11/02/19 Range/Units 00:50 00:50 00:50 WBC 13.2 H (4.0-10.0) 10^3/ uL RBC 4.88 (4.1-5.3) 10^6/u L Hgb 13.7 (11.5-15.3) g/dL Hct 43.0 (37.0-47.0) % MCV 88.1 (81-99) fL MCH 28.1 (28.0-34.0) pg MCHC 31.9 (30.0-36.0) g/dL RDW 12.8 (12.1-15.1) % Plt Count 295 (130-400) 10^3/c mm MPV 11.5 H (7.4-10.4) fL Neut % (Auto) 74.2 % Lymph % (Auto) 15.8 % [facility] % (Auto) 6.7 % Eos % (Auto) 1.7 % Baso % (Auto) 0.4 % Neut # (Auto) 9.8 H (1.8-7.7) 10^3/u L Lymph # (Auto) 2.1 (0.8-4.8) 10^3/u L [facility] [place] # (Auto) 0.9 (0.2-0.9) 10^3/u L Eos # (Auto) 0.2 (0.0-0.8) 10^3/u L Baso # (Auto) 0.1 (0.0-0.1) 10^3/u L Nucleated RBC % (a uto) 0 % Nucleated RBCs # 0.0 /100WBC Sodium 135 L (136-145) mmol/L Potassium 4.4 (3.5-5.1) mmol/L Chloride 96 L (98-107) mmol/L Carbon Dioxide 25 (22-29) mmol/L Anion Gap 18.4 (5-19) BUN 15 (6-20) mg/dL Creatinine 0.9 (0.5-0.9) mg/dL GFR Calculation 72.6 L (90-130) mL/min Glucose 170 H (65-115) mg/dL Calcium 9.9 (8.5-10.5) mg/dL Total Bilirubin 0.3 (0.15-1.2) mg/dL AST 32 (0-32) U/L ALT 178 H (0-33) U/L Alkaline Phosphata se 209 H (35-105) IU/L Total Protein 8.1 (6.6-8.7) g/dL Albumin 3.8 (3.5-5.2) g/dL Globulin 4.3 (1.3-4.6) g/dL Lipase 29 (13-60) U/L HCG, Qual Negative (Negative) Urine Color (Yellow) Urine Appearance (CLEAR) Urine pH (5-7) Ur Specific Gravit y (1.005-1.030) Urine Protein (Negative) Urine Glucose (UA) (Normal) Urine Ketones (Negative) Urine Blood (Negative) Urine Nitrate (Negative) Urine Bilirubin (NEGATIVE) Urine Urobilinogen (Negative) mg/dL Ur Leukocyte Maame ase (Negative) Urine RBC (0-2) /hpf Urine WBC (0-5) /hpf Ur Squamous Epith Cells (0-5) Ur Transition Epit h Cell /hpf Ur Renal Epithelia l Cell /hpf Urine Bacteria (NONE) 11/02/19 Range/Units 01:50 WBC (4.0-10.0) 10^3/ uL RBC (4.1-5.3) 10^6/u L Hgb (11.5-15.3) g/dL Hct (37.0-47.0) % MCV (81-99) fL MCH (28.0-34.0) pg MCHC (30.0-36.0) g/dL RDW (12.1-15.1) % Plt Count (130-400) 10^3/c mm MPV (7.4-10.4) fL Neut % (Auto) % Lymph % (Auto) % [facility] [place] [facility] % (Auto) % Eos % (Auto) % Baso % (Auto) % Neut # (Auto) (1.8-7.7) 10^3/u L Lymph # (Auto) (0.8-4.8) 10^3/u L [facility] [place] [facility] # (Auto) (0.2-0.9) 10^3/u L Eos # (Auto) (0.0-0.8) 10^3/u L Baso # (Auto) (0.0-0.1) 10^3/u L Nucleated RBC % (a uto) % Nucleated RBCs # /100WBC Sodium (136-145) mmol/L Potassium (3.5-5.1) mmol/L Chloride (98-107) mmol/L Carbon Dioxide (22-29) mmol/L Anion Gap (5-19) BUN (6-20) mg/dL Creatinine (0.5-0.9) mg/dL GFR Calculation (90-130) mL/min Glucose (65-115) mg/dL Calcium (8.5-10.5) mg/dL Total Bilirubin (0.15-1.2) mg/dL AST (0-32) U/L ALT (0-33) U/L Alkaline Phosphata se (35-105) IU/L Total Protein (6.6-8.7) g/dL Albumin (3.5-5.2) g/dL Globulin (1.3-4.6) g/dL Lipase (13-60) U/L HCG, Qual (Negative) Urine Color Yellow (Yellow) Urine Appearance Sl hazy (CLEAR) Urine pH 7 (5-7) Ur Specific Gravit y 1.010 (1.005-1.030) Urine Protein Neg (Negative) Urine Glucose (UA) Norm (Normal) Urine Ketones Negative (Negative) Urine Blood Neg (Negative) Urine Nitrate Negative (Negative) Urine Bilirubin Neg (NEGATIVE) Urine Urobilinogen Norm (Negative) mg/dL Ur Leukocyte Maame ase Negative (Negative) Urine RBC None (0-2) /hpf Urine WBC None (0-5) /hpf Ur Squamous Epith Cells 10-15 H (0-5) Ur Transition Epit h Cell None /hpf Ur Renal Epithelia l Cell None /hpf Urine Bacteria Trace (NONE) Imaging Data ^: US: Radiologist's impression: Ultrasound pelvis, technologist interpretation -11 mm left ovarian cyst without evidence of torsion of the ovary or ruptured cyst. No free fluid. Remaining exam unremarkable. Please see full formal report. Discharge Plan Discharge Patient Disposition: Home, Self-Care Clinical Impression: Ovarian cyst Qualifiers: Laterality: left Qualified Code(s): N83.202 - Unspecified ovarian cyst, left side Condition: Stable Prescriptions: [place] 5-325 mg tablet 1 tab PO Q6H PRN (Reason: pain) 5 Days Qty: 20 RF: 0 ibuprofen 800 mg tablet 800 mg PO TID PRN (Reason: pain) Qty: 30 RF: 0 No Action dulaglutide 1.5 mg/0.5 mL pen injector 1.5 mg SUBCUT Q7D Qty: 2 RF: 0 tramadol 50 mg tablet 50 mg PO TID PRN (Reason: Pain) 30 Days Qty: 90 RF: 0 Hold Instructions: Resume on 11/04/19. Do not take tramadol while taking the hydrocodone metformin 500 mg tablet 500 mg PO BID Qty: 180 RF: 1 cyclobenzaprine 10 mg tablet 10 mg PO TID Qty: 270 RF: 1 atenolol 25 mg tablet 25 mg PO BID Qty: 180 RF: 1 albuterol sulfate [Ventolin HFA] 90 mcg/actuation HFA aerosol inhaler 2 puff INHALATION Q6H PRN (Reason: Shortness Of Breath Or Wheezing) RF: 0 [place] 5-325 mg tablet 1 tab PO Q6H PRN (Reason: pain) Qty: 20 RF: 0 omeprazole 40 mg capsule,delayed release(DR/EC) 40 mg PO DAILY RF: 0 spironolactone 25 mg tablet 25 mg PO DAILY RF: 0 citalopram 20 mg tablet 20 mg PO DAILY RF: 0 lisinopril-hydrochlorothiazide 20-25 mg tablet 1 tab PO DAILY RF: 0 Discharge Orders: Discharge Order (Routine); Ordered 11/02/19 Ordered By: Swathi Weaver Referrals: Dharmesh Moe DO [Physician] - 1-3 days Celina Ruiz DO [Primary Care Provider] - Discharge Diet: Advance as tolerated Discharge Activity: Increase activity as tolerated Patient Instructions: Ovarian Cyst (ED) Activity Restrictions/Additional Instructions: Please return to the ER immediately for any of the signs or symptoms listed on your discharge instruction sheets, worsening/changing of your symptoms, you are not getting better as quickly as expected, or for ANY other cause or concerns. If you develop sudden worsening of your pain or even slow progressive worsening of your pain please return to the ER immediately for recheck. Be certain to follow-up with Dr. Moe as soon as possible for further evaluation and care. Discharge Date/Time: 11/02/19 02:49 Coding Level of Care Code ED Construction Analyst for Leonela Fwtish The documentation recorded by the Cliff vincent Stephanie Lyn, accurately reflects the service I personally performed and the decisions made by , Swathi Weaver Nov 02, 2019 00:37
[2019-11-02 00:57] VITALS: RESP 24
[2019-11-02] MEDS: ondansetron 2 mg/ML SDV 2 mL 4 MG IVP (00:57)
[2019-11-02] MEDS: HYDROmorphone 1 mg/mL INJ 1 mL IVP ×2 (00:57→02:21)
[2019-11-02] MEDS: sodium chloride 0.9% 1,000 ML 999 ML IV (00:57)
[2019-11-02 01:02] LABS: Basophils # 0.1 10^3/uL (0.0-0.1); Basophils % 0.4 %; Eosinophils # 0.2 10^3/uL (0.0-0.8); Eosinophils % 1.7 %; Hemoglobin 13.7 g/dL (11.5-15.3); Lymphocytes # 2.1 10^3/uL (0.8-4.8); Lymphocytes % 15.8 %; Mean Corpuscular HGB Conc 31.9 g/dL (30.0-36.0); Mean Corpuscular Hemoglobin 28.1 pg (28.0-34.0); Mean Corpuscular Volume 88.1 fL (81-99); Mean Platelet Volume 11.5 fL (7.4-10.4); Monocytes # 0.9 10^3/uL (0.2-0.9); Monocytes % 6.7 %; Neutrophils # 9.8 10^3/uL (1.8-7.7); Neutrophils % 74.2 %; Nucleated Red Blood Cells % 0 %; Platelet Count 295 10^3/cmm (130-400); Red Blood Count 4.88 10^6/uL (4.1-5.3); Red Cell Distribution Width 12.8 % (12.1-15.1); White Blood Count 13.2 10^3/uL (4.0-10.0)
[2019-11-02 01:15] LABS: Alanine Aminotransferase 178 U/L (0-33); Albumin Level 3.8 g/dL (3.5-5.2); Alkaline Phosphatase 209 IU/L (35-105); Anion Gap 18.4 (5-19); Aspartate Amino Transferase 32 U/L (0-32); Blood Urea Nitrogen 15 mg/dL (6-20); Calcium 9.9 mg/dL (8.5-10.5); Carbon Dioxide 25 mmol/L (22-29); Chloride 96 mmol/L (98-107); Globulin 4.3 g/dL (1.3-4.6); Glomerular Filtration Rate 72.6 mL/min (90-130); Glucose 170 mg/dL (65-115); Lipase 29 U/L (13-60); Potassium 4.4 mmol/L (3.5-5.1); Sodium 135 mmol/L (136-145); Total Bilirubin 0.3 mg/dL (0.15-1.2); Total Protein 8.1 g/dL (6.6-8.7)
[2019-11-02 02:15] LABS: HCG, Serum Qual Negative (Negative)
[2019-11-02 02:16] LABS: Bilirubin Urine Neg (NEGATIVE); Blood Urine Neg (Negative); Glucose Urine UA Norm (Normal); Ketones Urine Negative (Negative); Leukocyte Esterase Urine Negative (Negative); Nitrate Urine Negative (Negative); Protein Urine Neg (Negative); Urine Appearance SL Hazy (CLEAR); Urine Color Yellow (Yellow); Urobilinogen Urine Norm (Negative); pH Urine 7 (5-7)
[2019-11-02 02:17] LABS: Add Urine Culture? No; Bacteria Urine TRACE
[2019-11-02 02:21] VITALS: RESP 20
[2019-11-02] MEDS: ketorolac 30 mg/mL INJ IVP (02:40)
[2019-11-02 02:48] VITALS: BP 113/73; PULSE 93; RESP 16; O2SAT 94
== END 2019-11-02 02:49 | disposition home or self-care (01) ==
PROVIDERS: Emergency Provider Emergency Medicine; Family Provider Family Medicine; PCP Family Medicine
DX: N83.202 Unspecified ovarian cyst, left side (principal); I10 Essential (primary) hypertension; E11.9 Type 2 diabetes mellitus without complications; K21.9 Gastro-esophageal reflux disease without esophagitis; E66.01 Morbid (severe) obesity due to excess calories; M62.838 Other muscle spasm; F32.9 Major depressive disorder, single episode, unspecified; G89.29 Other chronic pain; F17.210 Nicotine dependence, cigarettes, uncomplicated; Z90.49 Acquired absence of other specified parts of digestive tract; Z82.49 Family history of ischemic heart disease and other diseases of the circulatory system; Z83.3 Family history of diabetes mellitus; Z79.84 Long term (current) use of oral hypoglycemic drugs; Z79.51 Long term (current) use of inhaled steroids; Z79.899 Other long term (current) drug therapy; Z68.44 Body mass index [BMI] 60.0-69.9, adult
CPT/HCPCS: 36415; 76830; 76856; 80053; 81001; 83690; 84703; 85025; 96360; 96361; 96374; 96375; 96376; 99283; J1170; J1885; J2405; J7030

== ENCOUNTER → 2019-11-08 08:50 | Outpatient (BNVA) | payer MEDICARE, MEDICAID, SELFPAY | PROVIDERS: Family Provider Family Medicine; PCP Family Medicine; Visit Provider Obstetrics & Gynecology | DX: N83.8 Other noninflammatory disorders of ovary, fallopian tube and broad ligament (principal); N91.1 Secondary amenorrhea | CPT/HCPCS: 83001; 84146; 84443; 84703 ==

== ENCOUNTER 2019-11-12 16:14 | Emergency (ER) | payer MEDICARE, MEDICAID, SELFPAY ==
[2019-11-12 16:18] VITALS: BP 163/104; PULSE 90; RESP 17; TEMP 36.5; O2SAT 96; BMI 67.6
--- NOTE | 2019-11-12 16:24 | USR_ITS ---
PROCEDURE INFORMATION: Exam: US Pelvis Complete, Transabdominal Exam date and time: 11/12/2019 5:54 PM Age: 34 years old Clinical indication: Pelvic pain; Patient HX: Known left ovarian cyst. Patient is scheduled for surgery to have cyst removed. ; Additional info: Left ovarian cyst, pain increased TECHNIQUE: Imaging protocol: Real-time transabdominal pelvic ultrasound with image documentation. Complete exam. COMPARISON: US pelvic with transvaginal 11/02/2019 1:57 AM FINDINGS: Uterus/cervix: Mildly anteverted nongravid multiparous appearing uterus dimensions 8.7 cm x 4.2 cm x 6 cm. Right adnexa: Right ovary not image this exam. Left adnexa: Examination again reveals a large simple appearing left ovarian cyst dimensions today 11.4 cm x 9.1 cm x 9.4 cm compared to 11.4 cm x 8.3 cm by 9 cm on the last examination. No significant overall change since 11/02/2019. Dimensions of the left ovary proper 4.7 cm x 2.4 cm x 2.6 cm. No other visible left ovarian cyst. Positive arterial and venous flow to the left ovary to both color Doppler assessment. Free fluid: No visible free fluid in the pelvis. Bladder: Normal. Other findings: No visible adnexal mass or cystic lesion. US/US pelvic complete* [id number] IMPRESSION: 1. No significant interval change dominant left simple ovarian cyst. 2. Right ovary not images exam.
--- NOTE | 2019-11-12 17:00 | PC.NURSE ---
Patient reports that she has a large cyst causing her to have left lower abd pain. Patient states that the pain started last night.
--- NOTE | 2019-11-12 17:07 | ED_ITS ---
HPI - Abdominal Pain General: Chief Complaint: Abdominal Pain Stated Complaint: SIDE PAIN Time Seen by Provider: 11/12/19 17:06 History of Present Illness: HPI narrative: Patient is a 34-year-old female who comes into the ED with left pelvic pain. Patient states she has been previously diagnosed with 11 cm left ovarian cyst and she has been meeting with an [employer] specialist about cyst and possibly getting it surgically removed. She says she meets with her marine service station attendant next week to discuss ovarian cyst management options. Patient says that for the past month she gets the on and off again intense left pelvic pain due to the ovarian cyst on the left side. Patient states today she bent over to get something and started feeling the left pelvic pain again. She says that this pain is just like previous pain she has had multiple times over this past month. She rates current left pelvic pain 10 out of 10. She denies any vaginal discharge or any vaginal bleeding, dysuria or hematuria. Patient states she has not had a period since 2011. Associated Symptoms: Denies chills, constipation, diarrhea, dysuria, fever(s), hematochezia, hematuria, nausea and vomiting Review of Systems Const: Denies: fever, chills or fatigue Eyes: Denies: change in vision or eye discomfort ENMT: Denies: throat pain, painful swallowing, nasal discharge or nasal congestion Card: Denies: chest pain, palpitations, edema, swelling of feet/ankles, shortness of breath on exertion or shortness of breath when lying down Resp: Reports: non-productive cough (chronic smokers cough); Denies: shortness of breath or productive cough GI: Denies: abdominal pain, nausea, vomiting, diarrhea, constipation or blood in stool : Reports: flank pain and pelvic pain (left side); Denies: painful urination, blood in urine, vaginal bleeding, vaginal discharge or irregular period Musc: Denies: neck pain, back pain or extremity swelling Skin/Breast: Denies: rash or new lesion Neuro: Denies: headache, numbness in extremities or weakness in extremities PFSH ED PFSH: Medical History Benign essential HTN Bilateral chronic knee pain Bilateral leg edema Diabetes mellitus, without long-term current use of insulin GERD (gastroesophageal reflux disease) Morbid obesity with BMI of 60.0-69.9, adult Muscle spasms of both lower extremities Prolonged depression Surgical History History of cholecystectomy Family History Other CAD (coronary artery disease) Cancer Diabetes Hypertension Social History Smoking and tobacco status: current every day smoker cigarettes Packs smoked per day: 1 Alcohol intake: never Physical Exam Narrative: EXAM NARRATIVE: Patient is a 34-year-old female who is sitting comfortably on the exam bed lying in the room. She is showing no signs of acute distress or pain. Const: COMMON NORMALS: oriented x3 HENMT: COMMON NORMALS: normocephalic HEAD & SCALP: normocephalic MOUTH: oral and palatal mucosa normal THROAT: posterior oropharynx normal and uvula midline Eye: COMMON NORMALS: PERRL GENERAL EYE: normal appearance of both eyes PUPIL: Yes PERRL Neck/C-Spine: COMMON NORMALS: supple GENERAL: Yes normal visual inspection Lymph: LYMPHATIC: no lymphadenopathy noted (No cervical lymphadenopathy noted) Resp: COMMON NORMALS: normal respiratory effort, no retractions, no use of accessory muscles and clear to auscultation bilaterally AUSCULTATION: clear to auscultation bilaterally Cardio: COMMON NORMALS: regular rate, regular rhythm, S1 normal heart sound, S2 normal heart sound, no gallops, no clicks, no murmurs and peripheral pulses 2+ throughout RATE: regular rate RHYTHM: regular rhythm HEART SOUNDS: S1 normal and S2 normal PERIPHERAL PULSES: pulses 2+ throughout GI: COMMON NORMALS: soft to palpation and no masses INSPECTION: Yes central obesity AUSCULTATION: Yes normoactive bowel sounds PALPATION: Yes soft and Yes tender Details: other (Left lower pelvic region. She also had some tenderness on L Lower flank.) : COMMON NORMALS: Yes no CVA tenderness BLADDER/KIDNEY EXAM: Yes no CVA tenderness Back/Pelvis: COMMON NORMALS: no CVA tenderness Extremity: COMMON NORMALS: normal to inspection Neuro: COMMON NORMALS: oriented x3 GAIT: Yes normal gait Skin: COMMON NORMALS: no rashes or lesions noted GENERAL SKIN EXAM: no rashes or lesions noted and dry skin Course Reevaluation(s): Reevaluation #1: I checked with the patient around 6:15 PM. Patient had taken hydrocodone 7.5 mg and she now states her pain is about an 8 out of 10. I discussed with her some possible pain control options and she agreed with the IM of morphine 4mg to help bring down the pain some more before discharge. Time: 18:15 Vital Signs: Vital signs: Vital Signs Temperature 97.6 F 11/12/19 19:14 Pulse Rate 80 11/12/19 19:14 Respiratory Rate 18 11/12/19 19:14 Blood Pressure 111/73 11/12/19 19:14 Pulse Oximetry 94 11/12/19 19:14 MDM - Abdominal Pain Imaging Data ^: US: Attestation: I personally reviewed and interpreted this imaging study as follow s: My impression: I talked with the information systems technician about the preliminary report. Radiologist's impression: Pelvic ultrasound?preliminary report?patient still has 11 cm cyst in the left ovary. There is no change to the cyst and no change of pelvic ultrasound compared to previous study. Discharge Plan Discharge Patient Disposition: Home, Self-Care Clinical Impression: Ovarian mass, left Condition: Stable Prescriptions: No Action dulaglutide 1.5 mg/0.5 mL pen injector 1.5 mg SUBCUT Q7D Qty: 2 RF: 0 tramadol 50 mg tablet 50 mg PO TID PRN (Reason: Pain) 30 Days Qty: 90 RF: 0 Hold Instructions: Resume on 11/04/19. Do not take tramadol while taking the hydrocodone metformin 500 mg tablet 500 mg PO BID Qty: 180 RF: 1 cyclobenzaprine 10 mg tablet 10 mg PO TID Qty: 270 RF: 1 atenolol 25 mg tablet 25 mg PO BID Qty: 180 RF: 1 albuterol sulfate [Ventolin HFA] 90 mcg/actuation HFA aerosol inhaler 2 puff INHALATION Q6H PRN (Reason: Shortness Of Breath Or Wheezing) RF: 0 ibuprofen 800 mg tablet 800 mg PO TID PRN (Reason: pain) Qty: 30 RF: 0 omeprazole 40 mg capsule,delayed release(DR/EC) 40 mg PO DAILY RF: 0 spironolactone 25 mg tablet 25 mg PO DAILY RF: 0 citalopram 20 mg tablet 20 mg PO DAILY RF: 0 lisinopril-hydrochlorothiazide 20-25 mg tablet 1 tab PO DAILY RF: 0 Discharge Orders: Discharge Order (Routine); Ordered 11/12/19 Ordered By: Quinn Zhong Referrals: Celina Ruiz DO [Primary Care Provider] - Discharge Diet: Regular Discharge Activity: Resume usual activity Patient Instructions: Ovarian Cyst (ED) Activity Restrictions/Additional Instructions: Follow-up with PCP in 7 days for reevaluation. Go to your previously scheduled OB/gyne doctor appointment to discuss ovarian cyst management. Take ibuprofen and/or Tylenol to help with pain. Return to the ED if it worsens or if you start having any bleeding. Discharge Date/Time: 11/12/19 19:16 Coding Level of Care Code ED Research And Development Specialist for Chg Fwd Exam Comprehensive
[2019-11-12] MEDS: HYDROcodone-acetaminophen 7.5-325 mg Tablet 1 TAB PO ×2 (17:29→19:14)
[2019-11-12 18:33] VITALS: RESP 20
[2019-11-12 19:14] VITALS: BP 111/73; PULSE 80; RESP 18; TEMP 36.4; O2SAT 94
== END 2019-11-12 19:16 | disposition home or self-care (01) ==
PROVIDERS: Emergency Provider Physician Assistant; Family Provider Family Medicine; PCP Family Medicine
DX: N83.202 Unspecified ovarian cyst, left side (principal); E11.9 Type 2 diabetes mellitus without complications; I10 Essential (primary) hypertension; E66.01 Morbid (severe) obesity due to excess calories; Z68.44 Body mass index [BMI] 60.0-69.9, adult; F17.210 Nicotine dependence, cigarettes, uncomplicated; Z79.84 Long term (current) use of oral hypoglycemic drugs
CPT/HCPCS: 12345; 76856; 96372; 96375; 99281; 99283

== ENCOUNTER 2019-11-17 18:56 | Emergency (ER) | payer MEDICARE, MEDICAID, SELFPAY ==
[2019-11-17 19:25] LABS: Basophils # 0.1 10^3/uL (0.0-0.1); Basophils % 0.4 %; Eosinophils # 0.2 10^3/uL (0.0-0.8); Eosinophils % 1.7 %; Hematocrit 44.6 % (37.0-47.0); Hemoglobin 14.5 g/dL (11.5-15.3); Lymphocytes # 2.3 10^3/uL (0.8-4.8); Lymphocytes % 17.6 %; Mean Corpuscular HGB Conc 32.5 g/dL (30.0-36.0); Mean Corpuscular Hemoglobin 28.5 pg (28.0-34.0); Mean Corpuscular Volume 87.6 fL (81-99); Mean Platelet Volume 11.1 fL (7.4-10.4); Monocytes # 0.9 10^3/uL (0.2-0.9); Monocytes % 6.5 %; Neutrophils # 9.7 10^3/uL (1.8-7.7); Nucleated Red Blood Cells % 0 %; Platelet Count 362 10^3/cmm (130-400); Red Blood Count 5.09 10^6/uL (4.1-5.3); Red Cell Distribution Width 13.1 % (12.1-15.1); White Blood Count 13.2 10^3/uL (4.0-10.0)
[2019-11-17 19:33] VITALS: BP 127/85; PULSE 100; RESP 18; TEMP 36.5; O2SAT 96
[2019-11-17 19:39] LABS: Alanine Aminotransferase 162 U/L (0-33); Albumin Level 4.4 g/dL (3.5-5.2); Alkaline Phosphatase 179 IU/L (35-105); Anion Gap 16.7 (5-19); Aspartate Amino Transferase 45 U/L (0-32); Blood Urea Nitrogen 18 mg/dL (6-20); Calcium 10.1 mg/dL (8.5-10.5); Carbon Dioxide 26 mmol/L (22-29); Chloride 95 mmol/L (98-107); Globulin 3.8 g/dL (1.3-4.6); Glomerular Filtration Rate 52.1 mL/min (90-130); Glucose 146 mg/dL (65-115); Lipase 37 U/L (13-60); Osmolality Calculated 275 mOsm/kg (285-295); Potassium 4.7 mmol/L (3.5-5.1); Sodium 133 mmol/L (136-145); Total Bilirubin 0.5 mg/dL (0.15-1.2); Total Protein 8.2 g/dL (6.6-8.7)
[2019-11-17 20:24] LABS: Add Urine Microscopic? YES; Bilirubin Urine 1+ (NEGATIVE); Blood Urine Neg (Negative); Glucose Urine UA Norm (Normal); Ketones Urine 1+ (Negative); Leukocyte Esterase Urine Trace (Negative); Nitrate Urine Positive (Negative); Protein Urine 1+ (Negative); Specific Gravity, Urine 1.025 (1.005-1.030); Urine Appearance Hazy (CLEAR); Urine Color Yellow (Yellow); Urobilinogen Urine 1 mg/dL (Negative); pH Urine 5 (5-7)
[2019-11-17 20:37] LABS: Add Urine Culture? Yes; Bacteria Urine 2+; RBC Urine 0-4 /hpf (0-2); WBC Urine 0-4 /hpf (0-5)
--- NOTE | 2019-11-17 20:48 | ED_ITS ---
Entered by Mercedes Sampson, acting as scribe for Deepika Watson MD Nov 17, 2019 18:56 HPI - Abdominal Pain General: Chief Complaint: Abdominal Pain Stated Complaint: ab pain Time Seen by Provider: 11/17/19 20:48 Source: patient and RN notes reviewed Mode of arrival: ambulatory Limitations: no limitations History of Present Illness: HPI narrative: 34 yo female presents to ED with complaints of left sided abdominal pain. She states it feels like someone is squeezing her gut. She said it began about 3 hours ago. She said the pain is making her nauseated. She said it is twisting, squeezing and sharp. Her last bowel movement was this morning and was normal. She said her periods just up and quit and they couldn't figure out why . MD elicited complaint: abdominal pain Pertinent past history: other (L ovarian cyst) Onset (ago): hour(s) (3 (1800)) Pain Consistency: constant Location: LLQ Severity: severe Quality: sharp and other (twisting, squeezing) Radiation: none Migration to: no migration Exacerbating factors: nothing Relieving factors: nothing Context: other (L ovarian cyst) Associated Symptoms: Reports nausea; Denies chills and fever(s) Related Data: Patient : No Review of Systems General: Reports: 10 or more systems reviewed and unremarkable except in HPI and below Const: Denies: fever or chills Eyes: Denies: change in vision ENMT: Denies: throat pain Card: Denies: chest pain Resp: Denies: shortness of breath GI: Reports: abdominal pain and nausea : Denies: difficulty urinating Musc: Denies: muscle weakness Skin/Breast: Denies: rash Neuro: Denies: headache Psych: Denies: hopelessness or suicidal ideation Endo: Denies: excessive urination Sunday/Lymph: Denies: easy bruising or easy bleeding All/Imm: Denies: hives PFSH ED PFSH: Social History (Updated 11/16/19 @ 12:48 by Annie Conti RN) Smoking and tobacco status: current every day smoker cigarettes Packs smoked per day: 1 Alcohol intake: never Physical Exam Const: COMMON NORMALS: no apparent distress, oriented x3, alert and well nourished HENMT: COMMON NORMALS: normocephalic, external ears normal and external nose normal HEAD & SCALP: normocephalic NOSE: external nose normal EXTERNAL EAR: Yes external ears normal MOUTH: no trismus THROAT: posterior oropharynx normal Eye: COMMON NORMALS: PERRL, EOMs intact bilaterally and conjunctivae normal CONJUNCTIVA: Yes conjunctivae normal PUPIL: Yes PERRL Neck/C-Spine: COMMON NORMALS: full ROM, no lymphadenopathy, supple and no meningeal signs CERVICAL SPINE: Yes cervical ROM normal Lymph: LYMPHATIC: no lymphadenopathy noted Chest: COMMONS NORMALS: inspection of chest normal Resp: COMMON NORMALS: normal respiratory effort, no retractions, no use of accessory muscles and clear to auscultation bilaterally EFFORT & INSPECTION: Yes able to speak in complete sentences AUSCULTATION: clear to auscultation bilaterally Cardio: COMMON NORMALS: regular rate and regular rhythm RATE: regular rate RHYTHM: regular rhythm GI: OTHER: Normal bowel sounds soft, no rigidity or guarding. Tender diffusely to palpation : COMMON NORMALS: Yes no CVA tenderness BLADDER/KIDNEY EXAM: Yes no CVA tenderness Back/Pelvis: COMMON NORMALS: no CVA tenderness OTHER: Normal range of motion Extremity: COMMON NORMALS: normal to inspection GENERAL: Yes normal exam except as noted Neuro: COMMON NORMALS: oriented x3 and CN's II-XII intact bilaterally SENSORIUM/ORIENTATION: Yes alert MENINGEAL SIGNS: Yes no meningeal signs SPEECH: speech normal Psych: COMMON NORMALS: mental status grossly normal, thought process normal and speech normal SPEECH: Yes normal speech THOUGHT PROCESS: normal thought process Skin: COMMON NORMALS: no rashes or lesions noted GENERAL SKIN EXAM: no rashes or lesions noted Course Vital Signs: Vital signs: Vital Signs Temperature 97.7 F 11/17/19 19:33 Pulse Rate 100 11/17/19 19:33 Respiratory Rate 18 11/17/19 19:33 Blood Pressure 127/85 11/17/19 19:33 Pulse Oximetry 96 11/17/19 19:33 MDM - Abdominal Pain MDM Narrative: Medical decision making narrative: Review of chart shows that she was seen by gynecology today in the office and had a vaginal exam. She was seen today in the office there for follow-up from her recent ER visit a couple days ago where she had a ultrasound performed that showed the mass on her left ovary. She was referred to gynecologic in [place]. Will check acute abdominal series to make sure that she does not have any free air. She does not have a surgical abdomen at this time and I have reviewed her labs from today. Urine looks to be contaminated. Medical Records: Attestation: I reviewed the patient's medical records. Lab Data: Attestation: I reviewed the patient's lab results. Labs: Lab Results 11/17/19 11/17/19 11/17/19 Range/Units 19:18 19:18 19:49 WBC 13.2 H (4.0-10.0) 10^3/ uL RBC 5.09 (4.1-5.3) 10^6/u L Hgb 14.5 (11.5-15.3) g/dL Hct 44.6 (37.0-47.0) % MCV 87.6 (81-99) fL MCH 28.5 (28.0-34.0) pg MCHC 32.5 (30.0-36.0) g/dL RDW 13.1 (12.1-15.1) % Plt Count 362 (130-400) 10^3/c mm MPV 11.1 H (7.4-10.4) fL Neut % (Auto) 73.0 % Lymph % (Auto) 17.6 % [place] % (Auto) 6.5 % Eos % (Auto) 1.7 % Baso % (Auto) 0.4 % Neut # (Auto) 9.7 H (1.8-7.7) 10^3/u L Lymph # (Auto) 2.3 (0.8-4.8) 10^3/u L [place] # (Auto) 0.9 (0.2-0.9) 10^3/u L Eos # (Auto) 0.2 (0.0-0.8) 10^3/u L Baso # (Auto) 0.1 (0.0-0.1) 10^3/u L Nucleated RBC % (a uto) 0 % Nucleated RBCs # 0.0 /100WBC Sodium 133 L (136-145) mmol/L Potassium 4.7 (3.5-5.1) mmol/L Chloride 95 L (98-107) mmol/L Carbon Dioxide 26 (22-29) mmol/L Anion Gap 16.7 (5-19) BUN 18 (6-20) mg/dL Creatinine 1.2 H (0.5-0.9) mg/dL GFR Calculation 52.1 L (90-130) mL/min Glucose 146 H (65-115) mg/dL Calculated Osmolal ity 275 L (285-295) mOsm/k g Calcium 10.1 (8.5-10.5) mg/dL Total Bilirubin 0.5 (0.15-1.2) mg/dL AST 45 H (0-32) U/L ALT 162 H (0-33) U/L Alkaline Phosphata se 179 H (35-105) IU/L Total Protein 8.2 (6.6-8.7) g/dL Albumin 4.4 (3.5-5.2) g/dL Globulin 3.8 (1.3-4.6) g/dL Lipase 37 (13-60) U/L Urine Color Yellow (Yellow) Urine Appearance Hazy A (CLEAR) Urine pH 5 (5-7) Ur Specific Gravit y 1.025 (1.005-1.030) Urine Protein 1+ H (Negative) Urine Glucose (UA) Norm (Normal) Urine Ketones 1+ H (Negative) Urine Blood Neg (Negative) Urine Nitrate Positive H (Negative) Urine Bilirubin 1+ H (NEGATIVE) Urine Urobilinogen 1 H (Negative) mg/dL Ur Leukocyte Maame ase Trace H (Negative) Urine RBC 0-4 H (0-2) /hpf Urine WBC 0-4 H (0-5) /hpf Ur Squamous Epith Cells 5-10 H (0-5) Urine Bacteria 2+ H (NONE) Hyaline Casts 5-10 H Imaging Data ^: KUB: Attestation: I personally reviewed and interpreted this imaging study as follows: My impression: Acute abdominal series no free air increased stool burden. Discharge Plan Discharge Patient Disposition: Home, Self-Care Clinical Impression: Abdominal pain Qualifiers: Abdominal location: generalized Qualified Code(s): R10.84 - Generalized abdominal pain Condition: Stable Prescriptions: [place] 5-325 mg tablet 1 tab PO BID PRN (Reason: pain) Qty: 10 RF: 0 No Action tramadol 50 mg tablet 50 mg PO TID PRN (Reason: Pain) 30 Days Qty: 90 RF: 0 Hold Instructions: Resume on 11/04/19. Do not take tramadol while taking the hydrocodone metformin 500 mg tablet 500 mg PO BID Qty: 180 RF: 1 cyclobenzaprine 10 mg tablet 10 mg PO TID Qty: 270 RF: 1 atenolol 25 mg tablet 25 mg PO BID Qty: 180 RF: 1 albuterol sulfate [Ventolin HFA] 90 mcg/actuation HFA aerosol inhaler 2 puff INHALATION Q6H PRN (Reason: Shortness Of Breath Or Wheezing) RF: 0 dulaglutide 1.5 mg/0.5 mL pen injector 1.5 mg SUBCUT Q7D Qty: 2 RF: 0 omeprazole 40 mg capsule,delayed release(DR/EC) 40 mg PO DAILY Qty: 90 RF: 0 spironolactone 25 mg tablet 25 mg PO DAILY RF: 0 citalopram 20 mg tablet 20 mg PO DAILY RF: 0 lisinopril-hydrochlorothiazide 20-25 mg tablet 1 tab PO DAILY RF: 0 Referrals: Celina Ruiz DO [Primary Care Provider] - Patient Instructions: Constipation - Adult, Abdominal Pain (ED) Activity Restrictions/Additional Instructions: Drink entire bottle of magnesium citrate when you get home. He also may want to start taking MiraLAX daily. Keep all appointments as already scheduled and follow-up with your doctor return to the ER if you feel you have worse or emergent symptoms that need to be addressed, we are happy to evaluate you if needed in the emergency department. Coding Level of Care Code ED Oil House Attendant for Chg Fwd Exam Comprehensive The documentation recorded by the Adrián vincent Valerie R, accurately reflects the service I personally performed and the decisions made by me, Deepika Watson MD Nov 17, 2019 18:56
--- NOTE | 2019-11-17 21:20 | XR_ITS ---
WS: [id number] Acute abdomen series, 11/17/2019 Clinical Data: abd pain Comparison: None. Findings: In the chest there are no nodules, masses or effusions. The heart is normal. The pulmonary vascularity is not increased. No free air is seen beneath the diaphragms. No abnormal intra-abdominal masses or calcifications are seen. There is a large amount of fecal material in the ascending colon. There are clips in the right upper quadrant from a cholecystectomy. XR/XR acute abdomen series [id number] Impression: Negative acute abdomen series.
[2019-11-17] MEDS: HYDROcodone-acetaminophen 10-325 mg Tablet 1 TAB PO (22:19)
[2019-11-17] MEDS: magnesium citrate Btl 296 mL 150 ML PO (22:47)
== END 2019-11-17 22:50 | disposition home or self-care (01) ==
PROVIDERS: Emergency Medicine; Emergency Provider Emergency Medicine; Family Provider Family Medicine; PCP Family Medicine
DX: R10.9 Unspecified abdominal pain (principal); F17.210 Nicotine dependence, cigarettes, uncomplicated
CPT/HCPCS: 12345; 36415; 74022; 80053; 81001; 83690; 85025; 87086; 99281; 99283

== ENCOUNTER → 2019-11-19 11:00 | Outpatient (BNVA) | payer MEDICARE, MEDICAID, SELFPAY | PROVIDERS: Family Provider Family Medicine; PCP Family Medicine; Visit Provider Family Medicine | DX: E11.9 Type 2 diabetes mellitus without complications (principal); M25.561 Pain in right knee; M25.562 Pain in left knee; G89.29 Other chronic pain; R06.2 Wheezing; Z79.891 Long term (current) use of opiate analgesic | CPT/HCPCS: 80048; 80307; 80373 ==

== ENCOUNTER 2019-11-21 16:45 | Emergency (ER) | payer MEDICARE, MEDICAID, SELFPAY ==
[2019-11-21 17:06] VITALS: BP 122/77; PULSE 83; RESP 20; TEMP 36.6; O2SAT 95; BMI 64.4
--- NOTE | 2019-11-21 17:27 | ED_ITS ---
HPI - Fall General: Chief Complaint: Fall Stated Complaint: fell Time Seen by Provider: 11/21/19 17:14 History of Present Illness: HPI Narrative: Patient states he tripped over extension cord and landed on her belly on the floor. Says she just has mild generalized pain across her abdomen she is worried about left ovarian cyst. That she was just diagnosed with couple weeks ago. complaint: fall Onset (ago): hour(s) Fall from: standing Fall witnessed: yes, by family Place fall occurred: home Loss of consciousness: None Prolonged down time: no Symptoms prior to fall: none Context: tripped/slipped Associated symptoms-after fall: Reports abdominal pain; Denies chest pain or headache(s) Review of Systems Const: Denies: fever, chills or body aches Eyes: Denies: change in vision or blurry vision ENMT: Denies: throat pain or nasal congestion Card: Denies: chest pain or shortness of breath on exertion Resp: Denies: shortness of breath, productive cough or non-productive cough GI: Reports: abdominal pain; Denies: nausea or vomiting Musc: Denies: extremity pain Skin/Breast: Denies: rash Neuro: Denies: headache Psych: Denies: anxiety or depression Sunday/Lymph: Denies: easy bruising PFSH ED PFSH: Social History Smoking and tobacco status: current every day smoker cigarettes Packs smoked per day: 1 Alcohol intake: never Physical Exam Const: COMMON NORMALS: no apparent distress, average body habitus and oriented x3 HENMT: COMMON NORMALS: normocephalic HEAD & SCALP: normal to inspection and normocephalic FACE & SINUS: normal facial exam Eye: COMMON NORMALS: conjunctivae normal GENERAL EYE: normal appearance of both eyes CONJUNCTIVA: Yes conjunctivae normal Neck/C-Spine: COMMON NORMALS: no JVD Chest: COMMONS NORMALS: inspection of chest normal Resp: COMMON NORMALS: normal respiratory effort and clear to auscultation bilaterally AUSCULTATION: clear to auscultation bilaterally Cardio: COMMON NORMALS: no JVD, regular rate and regular rhythm RATE: regular rate RHYTHM: regular rhythm GI: COMMON NORMALS: normal to inspection, nondistended, normoactive bowel sounds and soft to palpation (Very obese) AUSCULTATION: Yes normoactive bowel sounds PALPATION: Yes soft (Very obese) and Yes tender (Generalized across abdomen no specific tenderness no bruising) Extremity: COMMON NORMALS: normal to inspection and full ROM Neuro: COMMON NORMALS: oriented x3 Course Vital Signs: Vital signs: Vital Signs Temperature 97.8 F 11/21/19 17:06 Pulse Rate 83 11/21/19 17:06 Respiratory Rate 20 H 11/21/19 17:06 Blood Pressure 122/77 11/21/19 17:06 Pulse Oximetry 95 11/21/19 17:06 MDM - Fall MDM Narrative: Medical decision making narrative: Patient states that her had a vasectomy 8 years ago she has had intercourse with him for the past 3 years and never taken control has not been so feels safe to go and do KUB without the hCG test being back Discharge Plan Discharge Prescriptions: No Action albuterol sulfate [Ventolin HFA] 90 mcg/actuation HFA aerosol inhaler 2 puff INHALATION Q6H PRN (Reason: Shortness Of Breath Or Wheezing) Qty: 8.5 RF: 1 tramadol 50 mg tablet 50 mg PO TID PRN (Reason: Pain) 30 Days Qty: 90 RF: 0 Hold Instructions: Resume on 11/04/19. Do not take tramadol while taking the hydrocodone metformin 500 mg tablet 500 mg PO BID Qty: 180 RF: 1 cyclobenzaprine 10 mg tablet 10 mg PO TID Qty: 270 RF: 1 atenolol 25 mg tablet 25 mg PO BID Qty: 180 RF: 1 dulaglutide 1.5 mg/0.5 mL pen injector 1.5 mg SUBCUT Q7D Qty: 2 RF: 0 omeprazole 40 mg capsule,delayed release(DR/EC) 40 mg PO DAILY Qty: 90 RF: 0 spironolactone 25 mg tablet 25 mg PO DAILY RF: 0 citalopram 20 mg tablet 20 mg PO DAILY RF: 0 lisinopril-hydrochlorothiazide 20-25 mg tablet 1 tab PO DAILY RF: 0 Coding Level of Care Code ED Metal Furniture Assembly Supervisor for Nagig Fwd Exam Comprehensive
--- NOTE | 2019-11-21 17:55 | XR_ITS ---
WS: [id number] XR KUB [id number] REASON FOR EXAM: pain FINDINGS: Scattered gas and fecal stasis is seen throughout the abdomen. No definite calcified densities are seen No air-fluid levels are noted. No free air seen. XR/XR KUB [id number] IMPRESSION: Nonspecific abdominal findings.
[2019-11-21] MEDS: acetaminophen 500 mg Tablet 1000 MG PO (18:19)
[2019-11-21 19:32] LABS: HCG, Serum Qual Negative (Negative)
[2019-11-21] MEDS: TRAMadol 50 mg Tablet PO (19:41)
== END 2019-11-21 19:44 | disposition home or self-care (01) ==
PROVIDERS: Emergency Provider Nurse Practitioner Family; Family Provider Family Medicine; PCP Family Medicine
DX: R10.84 Generalized abdominal pain (principal); E66.9 Obesity, unspecified; Z68.44 Body mass index [BMI] 60.0-69.9, adult; F17.210 Nicotine dependence, cigarettes, uncomplicated
CPT/HCPCS: 12345; 74018; 84703; 99281; 99283

== ENCOUNTER → 2019-11-24 09:10 | Outpatient (BNVA) | payer MEDICARE, MEDICAID, SELFPAY | PROVIDERS: Family Provider Family Medicine; PCP Family Medicine; Referring Provider Licensed Practical Nurse; Visit Provider Anesthesiology Pain Medicine | DX: G89.29 Other chronic pain (principal); M48.04 Spinal stenosis, thoracic region; M25.561 Pain in right knee; M25.562 Pain in left knee; M62.838 Other muscle spasm; F17.219 Nicotine dependence, cigarettes, with unspecified nicotine-induced disorders; Z79.891 Long term (current) use of opiate analgesic | CPT/HCPCS: 99205 ==

== ENCOUNTER 2019-11-24 12:05 | Emergency (ER) | payer MEDICARE, MEDICAID, SELFPAY ==
[2019-11-24 12:24] VITALS: RESP 20; TEMP 36.6; BMI 65.8
--- NOTE | 2019-11-24 12:30 | W.ED.FALL ---
HPI - Fall General: Chief Complaint: Fall Stated Complaint: fell on back Time Seen by Provider: 11/24/19 12:18 History of Present Illness: HPI Narrative: Patient is a 34-year-old female comes into the ED with midthoracic back pain after a fall this morning. Patient did see pain management clinic this morning after fall. Patient is scheduled to get an MRI of spine later this month. Pain management has put her on tramadol and she also takes cyclobenzaprine for muscle tightness. Patient says the fall occurred this morning when she was walking outside and stepped down onto the ground off of her front porch slipped and she says the middle of her back hit the steps. She has no bladder or bowel dysfunction, pain radiating down the leg, numbness tingling to lower extremities and no saddle anesthesia. Patient's chronic back pain is being managed by pain management. Associated symptoms-after fall: Denies abdominal pain, chest pain, headache(s), hematuria or neck pain Review of Systems Const: Denies: fever, chills or fatigue Eyes: Denies: change in vision or eye discomfort ENMT: Denies: throat pain, painful swallowing, nasal discharge or nasal congestion Card: Denies: chest pain, palpitations, edema, swelling of feet/ankles, shortness of breath on exertion or shortness of breath when lying down Resp: Denies: shortness of breath, productive cough or non-productive cough GI: Denies: abdominal pain, nausea, vomiting, diarrhea, constipation or blood in stool : Denies: flank pain, painful urination or blood in urine Musc: Reports: back pain; Denies: neck pain or extremity swelling Skin/Breast: Denies: rash or new lesion Neuro: Denies: headache, numbness in extremities or weakness in extremities PFS ED PFSH: Medical History Benign essential HTN Bilateral chronic knee pain Bilateral leg edema Diabetes mellitus, without long-term current use of insulin GERD (gastroesophageal reflux disease) Morbid obesity with BMI of 60.0-69.9, adult Muscle spasms of both lower extremities Prolonged depression Spinal stenosis, thoracic region Surgical History History of cholecystectomy Family History Father CAD (coronary artery disease) Diabetes Hypertension Family/Other Cancer Mother Diabetes Hypertension Social History Smoking and tobacco status: current every day smoker cigarettes Packs smoked per day: 1 Alcohol intake: never Household members: spouse and family Marital status: Current occupational status: disabled History of recent travel: No Physical Exam Narrative: EXAM NARRATIVE: Patient is a 34-year-old female who is sitting comfortably with her legs crossed and upright when I entered the room. She appeared to be in no acute pain or distress. Const: COMMON NORMALS: oriented x3 HENMT: COMMON NORMALS: normocephalic HEAD & SCALP: normocephalic MOUTH: oral and palatal mucosa normal THROAT: posterior oropharynx normal and uvula midline Neck/C-Spine: COMMON NORMALS: supple GENERAL: Yes normal visual inspection Resp: COMMON NORMALS: normal respiratory effort, no retractions, no use of accessory muscles and clear to auscultation bilaterally AUSCULTATION: clear to auscultation bilaterally Cardio: COMMON NORMALS: regular rate, regular rhythm, S1 normal heart sound, S2 normal heart sound, no gallops, no clicks, no murmurs and peripheral pulses 2+ throughout RATE: regular rate RHYTHM: regular rhythm HEART SOUNDS: S1 normal and S2 normal PERIPHERAL PULSES: pulses 2+ throughout GI: COMMON NORMALS: normal to inspection, nondistended, normoactive bowel sounds, soft to palpation, non-tender and no masses PALPATION: Yes soft : COMMON NORMALS: Yes no CVA tenderness BLADDER/KIDNEY EXAM: Yes no CVA tenderness Back/Pelvis: COMMON NORMALS: no CVA tenderness THORACIC SPINE/UPPER BACK: Yes paraspinal muscle tenderness Thoracic paraspinal muscle tenderness: left Extremity: COMMON NORMALS: normal to inspection Neuro: COMMON NORMALS: oriented x3 and moves all extremities Skin: COMMON NORMALS: no rashes or lesions noted GENERAL SKIN EXAM: no rashes or lesions noted and dry skin Course Vital Signs: Vital signs: Vital Signs Temperature 97.6 F 11/24/19 13:53 Pulse Rate 68 11/24/19 13:53 Respiratory Rate 18 11/24/19 13:53 Blood Pressure 129/82 11/24/19 13:53 Pulse Oximetry 97 11/24/19 13:53 Discharge Plan Discharge Patient Disposition: Home, Self-Care Clinical Impression: Thoracic back pain Qualifiers: Chronicity: unspecified Back pain laterality: left Qualified Code(s): M54.6 - Pain in thoracic spine Condition: Stable Prescriptions: No Action albuterol sulfate [Ventolin HFA] 90 mcg/actuation HFA aerosol inhaler 2 puff INHALATION Q6H PRN (Reason: Shortness Of Breath Or Wheezing) Qty: 8.5 RF: 1 tramadol 50 mg tablet 50 mg PO TID PRN (Reason: Pain) 30 Days Qty: 90 RF: 0 Hold Instructions: Resume on 11/04/19. Do not take tramadol while taking the hydrocodone gabapentin 300 mg capsule 300 mg PO TID MDD 3 Qty: 90 RF: 0 metformin 500 mg tablet 500 mg PO BID Qty: 180 RF: 1 cyclobenzaprine 10 mg tablet 10 mg PO TID Qty: 270 RF: 1 atenolol 25 mg tablet 25 mg PO BID Qty: 180 RF: 1 dulaglutide 1.5 mg/0.5 mL pen injector 1.5 mg SUBCUT Q7D Qty: 2 RF: 0 omeprazole 40 mg capsule,delayed release(DR/EC) 40 mg PO DAILY Qty: 90 RF: 0 spironolactone 25 mg tablet 25 mg PO DAILY RF: 0 citalopram 20 mg tablet 20 mg PO DAILY RF: 0 lisinopril-hydrochlorothiazide 20-25 mg tablet 1 tab PO DAILY RF: 0 Discharge Orders: Discharge Order (Routine); Ordered 11/24/19 Ordered By: Quinn Zhong Referrals: Celina Ruiz DO [Primary Care Provider] - Discharge Diet: Regular Discharge Activity: Increase activity as tolerated Patient Instructions: Back Pain (ED) Activity Restrictions/Additional Instructions: Follow-up with your PCP in 7 days reevaluation. Continue taking all pain meds as prescribed by pain management. Ice or apply heat to lower back to help with symptoms. Follow-up with pain management on symptoms. Discharge Date/Time: 11/24/19 13:54 Coding Level of Care Code ED Senior Environmental Consultant for Leonela Fwd Exam Comprehensive
[2019-11-24] MEDS: HYDROcodone-acetaminophen 7.5-325 mg Tablet 1 TAB PO (13:21)
[2019-11-24 13:53] VITALS: BP 129/82; PULSE 68; RESP 18; TEMP 36.4; O2SAT 97
== END 2019-11-24 13:54 | disposition home or self-care (01) ==
LOC: ER 15:00
PROVIDERS: Emergency Provider Physician Assistant; Family Provider Family Medicine; PCP Family Medicine
DX: M54.6 Pain in thoracic spine (principal); E11.9 Type 2 diabetes mellitus without complications; I10 Essential (primary) hypertension; E66.01 Morbid (severe) obesity due to excess calories; Z68.44 Body mass index [BMI] 60.0-69.9, adult; F17.210 Nicotine dependence, cigarettes, uncomplicated; Z79.84 Long term (current) use of oral hypoglycemic drugs; G89.29 Other chronic pain; M48.04 Spinal stenosis, thoracic region; M25.561 Pain in right knee; M25.562 Pain in left knee; M62.838 Other muscle spasm; F17.219 Nicotine dependence, cigarettes, with unspecified nicotine-induced disorders; Z79.891 Long term (current) use of opiate analgesic
CPT/HCPCS: 12345; 99205; 99281; 99283

== ENCOUNTER 2019-12-01 01:00 | Emergency (ER) | payer MEDICARE, MEDICAID, SELFPAY ==
--- NOTE | 2019-12-01 01:04 | ED_ITS ---
Entered by Giuliana Coronado, acting as scribe for Kat Yang MD HPI - Chest Pain General: Chief Complaint: Chest Pain Stated Complaint: Chest pains Time Seen by Provider: 12/01/19 01:04 Source: patient Mode of arrival: ambulatory Limitations: no limitations History of Present Illness: HPI narrative: 34 yo f came to the er pov for chest pain. Onset was 1 hour ago. Pt said that it started under her left breast, moved to the center of her chest and then to her left arm. Pts pcp is . Pt said that she does smoke and that she is trying to quit. complaint: chest pain Onset (ago): hour(s) (1 hour lpta) Timing of current episode: constant Prior episodes: No Onset: during rest Pain location: other (under left breast) Pain radiation: left arm Severity: mild Quality: sharp Relieving factors: nothing Exacerbating factors: nothing Associated symptoms: Reports no associated symptoms; Deny dyspnea or fever(s) Risk Factors: Coronary artery disease risk factors: none Thoracic aortic dissection risk factors: none Review of Systems General: Reports: other (negative unless marked) Const: Denies: fever Eyes: Denies: change in vision Card: Reports: chest pain Resp: Denies: shortness of breath Musc: Reports: extremity pain (left arm); Denies: neck pain Psych: Reports: depression (history of ) [facility] ED PFSH: Medical History Benign essential HTN Bilateral chronic knee pain Bilateral leg edema Diabetes mellitus, without long-term current use of insulin GERD (gastroesophageal reflux disease) Morbid obesity with BMI of 60.0-69.9, adult Muscle spasms of both lower extremities Prolonged depression Spinal stenosis, thoracic region Surgical History History of cholecystectomy Family History Father CAD (coronary artery disease) Diabetes Hypertension Family/Other Cancer Mother Diabetes Hypertension Social History Smoking and tobacco status: current every day smoker cigarettes Packs smoked per day: 1 Alcohol intake: never Household members: spouse and family Marital status: Current occupational status: disabled History of recent travel: No Physical Exam Const: COMMON NORMALS: no apparent distress, oriented x3 and healthy appearing HENMT: COMMON NORMALS: normocephalic and head/scalp atraumatic HEAD & SCALP: normocephalic and atraumatic Eye: COMMON NORMALS: PERRL and EOMs intact bilaterally PUPIL: Yes PERRL Neck/C-Spine: COMMON NORMALS: full ROM and supple Chest: COMMONS NORMALS: inspection of chest normal and palpation of chest normal Resp: COMMON NORMALS: normal respiratory effort, no retractions, no use of accessory muscles and clear to auscultation bilaterally AUSCULTATION: clear to auscultation bilaterally Cardio: COMMON NORMALS: regular rate, regular rhythm and no murmurs RATE: regular rate RHYTHM: regular rhythm GI: COMMON NORMALS: normal to inspection, nondistended, normoactive bowel sounds, soft to palpation, non-tender and no masses PALPATION: Yes soft Extremity: COMMON NORMALS: normal to inspection and full ROM Neuro: COMMON NORMALS: oriented x3, moves all extremities and no focal motor deficits Psych: COMMON NORMALS: mental status grossly normal, thought process normal and cooperative THOUGHT PROCESS: normal thought process Skin: COMMON NORMALS: no rashes or lesions noted and no wounds GENERAL SKIN EXAM: no rashes or lesions noted Course Vital Signs: Vital signs: Vital Signs Pulse Rate 90 12/01/19 01:35 Respiratory Rate 16 12/01/19 01:35 Blood Pressure 156/90 12/01/19 01:35 Pulse Oximetry 98 12/01/19 01:35 MDM - Chest Pain MDM Narrative: Medical decision making narrative: Patient presents here with chest pain that is atypical in nature. Patient's initial and repeat troponin here are negative. Patient has no signs of cardiac cause or pulmonary embolism. Patient is stable for discharge and is to follow-up with primary care doctor in 3 to 5 days return if worsening. Lab Data: Labs: Lab Results 12/01/19 12/01/19 12/01/19 Range/Units 01:20 01:20 01:20 WBC 16.0 H (4.0-10.0) 10^3/ uL RBC 4.65 (4.1-5.3) 10^6/u L Hgb 13.5 (11.5-15.3) g/dL Hct 41.4 (37.0-47.0) % MCV 89.0 (81-99) fL MCH 29.0 (28.0-34.0) pg MCHC 32.6 (30.0-36.0) g/dL RDW 12.8 (12.1-15.1) % Plt Count 295 (130-400) 10^3/c mm MPV 11.4 H (7.4-10.4) fL Neut % (Auto) 74.2 % Lymph % (Auto) 16.9 % Mcculloch % (Auto) 6.4 % Eos % (Auto) 1.5 % Baso % (Auto) 0.3 % Neut # (Auto) 11.9 H (1.8-7.7) 10^3/u L Lymph # (Auto) 2.7 (0.8-4.8) 10^3/u L Mcculloch # (Auto) 1.0 H (0.2-0.9) 10^3/u L Eos # (Auto) 0.2 (0.0-0.8) 10^3/u L Baso # (Auto) 0.1 (0.0-0.1) 10^3/u L Nucleated RBC % (a uto) 0 % Nucleated RBCs # 0.0 /100WBC Sodium 134 L (136-145) mmol/L Potassium 4.4 (3.5-5.1) mmol/L Chloride 97 L (98-107) mmol/L Carbon Dioxide 22 (22-29) mmol/L Anion Gap 19.4 H (5-19) BUN 13 (6-20) mg/dL Creatinine 0.8 (0.5-0.9) mg/dL GFR Calculation 83.1 L (90-130) mL/min Glucose 183 H (65-115) mg/dL Calculated Osmolal ity 279 L (285-295) mOsm/k g Calcium 9.5 (8.5-10.5) mg/dL Total Bilirubin 0.2 (0.15-1.2) mg/dL AST 15 (0-32) U/L ALT 29 (0-33) U/L Alkaline Phosphata se 98 (35-105) IU/L Troponin T Baselin e 6 (0-10) ng/mL Troponin T 120 Min luzma (0-10) ng/mL Delta Troponin T (0-10) ABS# Total Protein 7.2 (6.6-8.7) g/dL Albumin 4.0 (3.5-5.2) g/dL Globulin 3.2 (1.3-4.6) g/dL // Range/Units 02:49 WBC (4.0-10.0) 10^3/ uL RBC (4.1-5.3) 10^6/u L Hgb (11.5-15.3) g/dL Hct (37.0-47.0) % MCV (81-99) fL MCH (28.0-34.0) pg MCHC (30.0-36.0) g/dL RDW (12.1-15.1) % Plt Count (130-400) 10^3/c mm MPV (7.4-10.4) fL Neut % (Auto) % Lymph % (Auto) % M[place]ulloch % (Auto) % Eos % (Auto) % Baso % (Auto) % Neut # (Auto) (1.8-7.7) 10^3/u L Lymph # (Auto) (0.8-4.8) 10^3/u L Mcculloch # (Auto) (0.2-0.9) 10^3/u L Eos # (Auto) (0.0-0.8) 10^3/u L Baso # (Auto) (0.0-0.1) 10^3/u L Nucleated RBC % (a uto) % Nucleated RBCs # /100WBC Sodium (136-145) mmol/L Potassium (3.5-5.1) mmol/L Chloride (98-107) mmol/L Carbon Dioxide (22-29) mmol/L Anion Gap (5-19) BUN (6-20) mg/dL Creatinine (0.5-0.9) mg/dL GFR Calculation (90-130) mL/min Glucose (65-115) mg/dL Calculated Osmolal ity (285-295) mOsm/k g Calcium (8.5-10.5) mg/dL Total Bilirubin (0.15-1.2) mg/dL AST (0-32) U/L ALT (0-33) U/L Alkaline Phosphata se (35-105) IU/L Troponin T Baselin e (0-10) ng/mL Troponin T 120 Min luzma 6.00 (0-10) ng/mL Delta Troponin T 0 (0-10) ABS# Total Protein (6.6-8.7) g/dL Albumin (3.5-5.2) g/dL Globulin (1.3-4.6) g/dL Imaging Data^: CXR: Attestation: I personally reviewed and interpreted this imaging study as follows: My impression: no acute abnormality EKG Data^: EKG 1: Attestation: I personally reviewed and interpreted this EKG as follows: EKG interpretation date: 12/01/19 EKG interpretation time: 01:17 Interpretation: nsr hr [address] or t wave abnormalities qrs 85 qtc 410 EKG 2: Attestation: I personally reviewed and interpreted this EKG as follows: EKG interpretation date: 12/01/19 EKG interpretation time: 03:18 Interpretation: nsr hr [address] or t wave abnormalities qrs 90 qtc 419 Discharge Plan Discharge Patient Disposition: Home, Self-Care Clinical Impression: Chest pain Qualifiers: Chest pain type: unspecified Qualified Code(s): R07.9 - Chest pain, unspecified Condition: Stable Prescriptions: New EC-Naprosyn 500 mg tablet,delayed release (DR/EC) 500 mg PO BID PRN (Reason: pain) Qty: 20 RF: 0 No Action albuterol sulfate [Ventolin HFA] 90 mcg/actuation HFA aerosol inhaler 2 puff INHALATION Q6H PRN (Reason: Shortness Of Breath Or Wheezing) Qty: 8.5 RF: 1 tramadol 50 mg tablet 50 mg PO TID PRN (Reason: Pain) 30 Days Qty: 90 RF: 0 Hold Instructions: Resume on 11/04/19. Do not take tramadol while taking the hydrocodone gabapentin 300 mg capsule 300 mg PO TID MDD 3 Qty: 90 RF: 0 metformin 500 mg tablet 500 mg PO BID Qty: 180 RF: 1 cyclobenzaprine 10 mg tablet 10 mg PO TID Qty: 270 RF: 1 atenolol 25 mg tablet 25 mg PO BID Qty: 180 RF: 1 dulaglutide 1.5 mg/0.5 mL pen injector 1.5 mg SUBCUT Q7D Qty: 2 RF: 0 omeprazole 40 mg capsule,delayed release(DR/EC) 40 mg PO DAILY Qty: 90 RF: 0 spironolactone 25 mg tablet 25 mg PO DAILY RF: 0 citalopram 20 mg tablet 20 mg PO DAILY RF: 0 lisinopril-hydrochlorothiazide 20-25 mg tablet 1 tab PO DAILY RF: 0 Discharge Orders: Discharge Order (Routine); Ordered 12/01/19 Ordered By: Kat Yang Referrals: Celina Ruiz DO [Primary Care Provider] - 1-3 days Discharge Diet: Advance as tolerated Discharge Activity: Resume usual activity Patient Instructions: Chest Pain (ED) Discharge Date/Time: 12/01/19 03:35 Coding Level of Care Code ED [employer] for g Fwd Exam Comprehensive The documentation recorded by the Cliff vincent Stephanie Lyn, accurately reflects the service I personally performed and the decisions made by Trey huizar Korby, MD Dec 01, 2019 01:00
[2019-12-01 01:05] VITALS: BP 213/136; PULSE 114; RESP 20; O2SAT 98; BMI 65.9
--- NOTE | 2019-12-01 01:06 | XR_ITS ---
WS: [id number] PORTABLE CHEST HISTORY: cp COMPARISON: 10/28/2019 Mild haziness and interstitial edema. No focal pneumonia. No nodules are identified. No pleural effus ion or pneumothorax. Cardiac size: Normal. Mediastinum/Aorta: Normal mediastinum. No osseous abnormality seen. XR/XR chest 1V portable [id number] IMPRESSION: 1. Suspect mild interstitial edema or pneumonitis. Otherwise negative. 2. No pneumonia.
[2019-12-01] MEDS: aspirin 81 mg Chew Tablet 324 MG PO (01:18)
[2019-12-01] MEDS: labetalol 5 mg/mL SDV 20mL 10 MG IVP (01:25)
[2019-12-01] MEDS: nitroglycerin 0.4 mg sublingual Tablet SUBLINGUAL ×3 (01:26→01:39)
[2019-12-01 01:29] LABS: Basophils # 0.1 10^3/uL (0.0-0.1); Basophils % 0.3 %; Eosinophils # 0.2 10^3/uL (0.0-0.8); Eosinophils % 1.5 %; Hematocrit 41.4 % (37.0-47.0); Hemoglobin 13.5 g/dL (11.5-15.3); Lymphocytes # 2.7 10^3/uL (0.8-4.8); Lymphocytes % 16.9 %; Mean Corpuscular HGB Conc 32.6 g/dL (30.0-36.0); Mean Platelet Volume 11.4 fL (7.4-10.4); Monocytes % 6.4 %; Neutrophils # 11.9 10^3/uL (1.8-7.7); Neutrophils % 74.2 %; Nucleated Red Blood Cells % 0 %; Platelet Count 295 10^3/cmm (130-400); Red Blood Count 4.65 10^6/uL (4.1-5.3); Red Cell Distribution Width 12.8 % (12.1-15.1)
[2019-12-01 01:35] VITALS: BP 156/90; PULSE 90; RESP 16; O2SAT 98
[2019-12-01 02:43] LABS: Troponin(5th) Baseline 6 ng/mL (0-10)
[2019-12-01] MEDS: ketorolac 30 mg/mL INJ 15 MG IVP (02:50)
--- NOTE | 2019-12-01 03:06 | ECG_ITS ---
Measurements Intervals [place] Rate: 95 P: 30 HI: 184 QRS: 37 QRSD: 90 T: 31 QT: 367 QTc: 462 SINUS RHYTHM Compared to ECG 10/28/2019 18:25:01 Atrial abnormality no longer present Electronically Signed On 12-01-2019 18:23:18 CDT by Velasquez Desai M.D. [email or web address]
[2019-12-01 03:09] VITALS: BP 148/94; PULSE 92; RESP 16; O2SAT 96
[2019-12-01 03:09] LABS: Troponin 5 2HR Delta 0 ABS# (0-10)
[2019-12-01 03:14] LABS: Alanine Aminotransferase 29 U/L (0-33); Alkaline Phosphatase 98 IU/L (35-105); Anion Gap 19.4 (5-19); Aspartate Amino Transferase 15 U/L (0-32); Blood Urea Nitrogen 13 mg/dL (6-20); Calcium 9.5 mg/dL (8.5-10.5); Carbon Dioxide 22 mmol/L (22-29); Chloride 97 mmol/L (98-107); Globulin 3.2 g/dL (1.3-4.6); Glomerular Filtration Rate 83.1 mL/min (90-130); Glucose 183 mg/dL (65-115); Osmolality Calculated 279 mOsm/kg (285-295); Potassium 4.4 mmol/L (3.5-5.1); Sodium 134 mmol/L (136-145); Total Bilirubin 0.2 mg/dL (0.15-1.2); Total Protein 7.2 g/dL (6.6-8.7)
[2019-12-01 03:31] VITALS: BP 146/92; PULSE 88; RESP 16; O2SAT 96
--- NOTE | 2019-12-01 07:06 | ECG_ITS ---
Measurements Intervals [place] Rate: 94 P: 33 UT: 182 QRS: 35 QRSD: 85 T: 39 QT: 358 QTc: 449 SINUS RHYTHM Compared to ECG 10/28/2019 18:25:01 Atrial abnormality no longer present Electronically Signed On 12-01-2019 18:23:13 CDT by Velasquez Desai M.D. [email or web address]
== END 2019-12-01 03:35 | disposition home or self-care (01) ==
PROVIDERS: Emergency Provider Emergency Medicine; Family Provider Family Medicine; PCP Family Medicine
DX: R07.9 Chest pain, unspecified (principal); I10 Essential (primary) hypertension; E11.9 Type 2 diabetes mellitus without complications; E66.01 Morbid (severe) obesity due to excess calories; Z68.44 Body mass index [BMI] 60.0-69.9, adult; F17.210 Nicotine dependence, cigarettes, uncomplicated; Z82.49 Family history of ischemic heart disease and other diseases of the circulatory system; Z79.84 Long term (current) use of oral hypoglycemic drugs
CPT/HCPCS: 12345; 36415; 71045; 80053; 84484; 85025; 93005; 96374; 96375; 99283; J1885; J3490

== ENCOUNTER 2019-12-04 07:02 | Inpatient (IN) | payer MEDICARE, MEDICAID, SELFPAY ==
[2019-12-04] VITALS (10 sets, daily range): BP systolic 97–154; BP diastolic 60–133; PULSE 84–94; RESP 16–20; TEMP 36.3–37.1; O2SAT 89–97; BMI 65.8
--- NOTE | 2019-12-04 07:20 | W.ED.FEMALGU ---
Documented by User: KAMRON England 12/04/19 10:55 HPI - Female Genitourinary General: Chief complaint: Urogenital-Female Stated complaint: unable to urinate *2 days Time Seen by Provider: 12/04/19 07:18 History of Present Illness: HPI Narrative: Patient is a 34-year-old female who comes to the ED with abdominal pain. Patient states that 2 days ago she urinated just a little bit and noticed that it looked darker than usual, but no visible blood. All day yesterday she did not urinate at all and today she started to have right-sided abdominal pain. Patient has had her gallbladder removed. Patient has been eating and drinking normally and states that she has been drinking plenty of fluids. Denies any nausea, diarrhea, constipation, vomiting, fever, chills, chest pain, shortness of breath, back pain. 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 Patient has an appointment with gynecology to discuss treatment for neoplasm in January. Associated symptoms: Reports abdominal pain; Deny headache(s) or nausea Review of Systems Const: Denies: fever, chills or fatigue Eyes: Denies: change in vision or eye discomfort ENMT: Denies: throat pain, painful swallowing, nasal discharge or nasal congestion Card: Denies: chest pain, palpitations, edema, swelling of feet/ankles, shortness of breath on exertion or shortness of breath when lying down Resp: Denies: shortness of breath, productive cough or non-productive cough GI: Reports: abdominal pain; Denies: nausea, vomiting, diarrhea, constipation or blood in stool : Reports: difficulty urinating and decreased urine ouput; Denies: flank pain, painful urination or blood in urine Musc: Denies: neck pain, back pain or extremity swelling Skin/Breast: Denies: rash or new lesion Neuro: Denies: headache, numbness in extremities or weakness in extremities PFSH ED PFSH: Family History Father CAD (coronary artery disease) Diabetes Hypertension Family/Other Cancer Mother Diabetes Hypertension Social History Smoking and tobacco status: current every day smoker cigarettes Packs smoked per day: 1 Alcohol intake: never Substance/Drug Use: never Household members: spouse and family Marital status: Current occupational status: disabled History of recent travel: No Physical Exam Const: COMMON NORMALS: oriented x3 HENMT: COMMON NORMALS: normocephalic HEAD & SCALP: normocephalic MOUTH: oral and palatal mucosa normal THROAT: posterior oropharynx normal and uvula midline Neck/C-Spine: COMMON NORMALS: supple GENERAL: Yes normal visual inspection Resp: COMMON NORMALS: normal respiratory effort, no retractions, no use of accessory muscles and clear to auscultation bilaterally AUSCULTATION: clear to auscultation bilaterally Cardio: COMMON NORMALS: regular rate, regular rhythm, S1 normal heart sound, S2 normal heart sound, no gallops, no clicks, no murmurs and peripheral pulses 2+ throughout RATE: regular rate RHYTHM: regular rhythm HEART SOUNDS: S1 normal and S2 normal PERIPHERAL PULSES: pulses 2+ throughout GI: COMMON NORMALS: normal to inspection, nondistended, normoactive bowel sounds, soft to palpation and no masses INSPECTION: Yes central obesity PALPATION: Yes soft and Yes tender Details: RLQ and RUQ : COMMON NORMALS: Yes no CVA tenderness BLADDER/KIDNEY EXAM: Yes no CVA tenderness Back/Pelvis: COMMON NORMALS: no CVA tenderness Extremity: COMMON NORMALS: normal to inspection Neuro: COMMON NORMALS: oriented x3 and moves all extremities Skin: COMMON NORMALS: no rashes or lesions noted GENERAL SKIN EXAM: no rashes or lesions noted and dry skin Course ED course: I discussed patient's case and elevated creatinine with Dr. Mann. He recommends patient being admitted. Dr. Mann will be handling the admission and managing patient's care for rest of time while pt is here in the ED. Reevaluation(s): Reevaluation #1: Patient was bladder scanned and had 700 cc of urine in her bladder. Nurse placed Lee catheter and sent and urinalysis to the lab. Patient says that her abdominal pain did improve some with bladder being drained by Lee catheter. Vital Signs: Vital signs: Vital Signs Temperature 98.2 F 12/06/19 08:00 Pulse Rate 116 H 12/06/19 10:00 Respiratory Rate 15 12/06/19 10:12 Blood Pressure 124/68 12/06/19 10:00 Pulse Oximetry 98 12/06/19 10:00 MDM - Female MDM Narrative: Medical decision making narrative: Patient is a 34-year-old female who comes into the ED with abdominal pain and urinary retention. Labs were remarkable for a creatinine of 3.2. CT of the abdomen showed no acute findings. The pelvic mass that was identified in previous scans remains unchanged and no evidence of hydronephrosis renal or your ureteral calcifications identified. While here in the ED patient has been given 2 L of fluid and morphine for pain. I discussed this case with Dr. Mann and he recommends patient gets admitted. He will be handling the admission and care of patient for the remaining time patient is in ED. Lab Data: Labs: Lab Results 12/04/19 12/04/19 12/04/19 Range/Units 07:48 07:48 07:48 WBC 13.2 H (4.0-10.0) 10^3/ uL RBC 4.41 (4.1-5.3) 10^6/u L Hgb 13.1 (11.5-15.3) g/dL Hct 40.6 (37.0-47.0) % MCV 92.1 (81-99) fL MCH 29.7 (28.0-34.0) pg MCHC 32.3 (30.0-36.0) g/dL RDW 13.4 (12.1-15.1) % Plt Count 303 (130-400) 10^3/c mm MPV 11.1 H (7.4-10.4) fL Neut % (Auto) 78.3 % Lymph % (Auto) 12.5 % Mcintosh % (Auto) 6.1 % Eos % (Auto) 1.9 % Baso % (Auto) 0.3 % Neut # (Auto) 10.4 H (1.8-7.7) 10^3/u L Lymph # (Auto) 1.7 (0.8-4.8) 10^3/u L Mcintosh # (Auto) 0.8 (0.2-0.9) 10^3/u L Eos # (Auto) 0.3 (0.0-0.8) 10^3/u L Baso # (Auto) 0.0 (0.0-0.1) 10^3/u L Nucleated RBC % (a uto) 0 % Nucleated RBCs # 0.0 /100WBC PT (10.5-13.3) SECO NDS INR (0.8-1.2) Sodium 132 L (136-145) mmol/L Potassium 4.8 (3.5-5.1) mmol/L Chloride 94 L (98-107) mmol/L Carbon Dioxide 25 (22-29) mmol/L Anion Gap 17.8 (5-19) BUN 42 H (6-20) mg/dL Creatinine 3.2 H (0.5-0.9) mg/dL GFR Calculation 16.8 L (90-130) mL/min Glucose 183 H (65-115) mg/dL Calculated Osmolal ity 276 L (285-295) mOsm/k g Calcium 9.1 (8.5-10.5) mg/dL Total Bilirubin 1.8 H (0.15-1.2) mg/dL AST 229 H (0-32) U/L ALT 363 H (0-33) U/L Alkaline Phosphata se 190 H (35-105) IU/L Total Protein 7.5 (6.6-8.7) g/dL Albumin 4.0 (3.5-5.2) g/dL Globulin 3.5 (1.3-4.6) g/dL Lipase 31 (13-60) U/L HCG, Qual Negative (Negative) Urine Color (Yellow) Urine Appearance (CLEAR) Urine pH (5-7) Ur Specific Gravit y (1.005-1.030) Urine Protein (Negative) Urine Glucose (UA) (Normal) Urine Ketones (Negative) Urine Blood (Negative) Urine Nitrate (Negative) Urine Bilirubin (NEGATIVE) Urine Urobilinogen (Negative) mg/dL Ur Leukocyte Maame ase (Negative) Urine RBC (0-2) /hpf Urine WBC (0-5) /hpf Ur Squamous Epith Cells (0-5) Amorphous Sediment Urine Bacteria (NONE) Hyaline Casts Salicylates (3-10) mg/dL Urine Opiates Scre en (Negative) ng/mL Acetaminophen (10-30) ug/mL Ur Barbiturates Sc reen (Negative) ng/mL Ur Phencyclidine S crn (Negative) ng/mL Ur Amphetamines Sc reen (Negative) ng/mL U Benzodiazepines Scrn (Negative) ng/mL Urine Cocaine Scre en (Negative) ng/mL U Marijuana (THC) Screen (Negative) ng/mL Hepatitis A IgM Ab (Nonreactive) Hep Bs Antigen (Nonreactive) Hep Bs Antibody (0-8.5) Hep B Core Total A b (Nonreactive) Hepatitis C Antibo dy (Nonreactive) 12/04/19 12/04/19 12/04/19 Range/Units 07:48 07:48 07:48 WBC (4.0-10.0) 10^3/ uL RBC (4.1-5.3) 10^6/u L Hgb (11.5-15.3) g/dL Hct (37.0-47.0) % MCV (81-99) fL MCH (28.0-34.0) pg MCHC (30.0-36.0) g/dL RDW (12.1-15.1) % Plt Count (130-400) 10^3/c mm MPV (7.4-10.4) fL Neut % (Auto) % Lymph % (Auto) % Mcintosh % (Auto) % Eos % (Auto) % Baso % (Auto) % Neut # (Auto) (1.8-7.7) 10^3/u L Lymph # (Auto) (0.8-4.8) 10^3/u L Mcintosh # (Auto) (0.2-0.9) 10^3/u L Eos # (Auto) (0.0-0.8) 10^3/u L Baso # (Auto) (0.0-0.1) 10^3/u L Nucleated RBC % (a uto) % Nucleated RBCs # /100WBC PT 13.00 (10.5-13.3) SECO NDS INR 0.95 (0.8-1.2) Sodium (136-145) mmol/L Potassium (3.5-5.1) mmol/L Chloride (98-107) mmol/L Carbon Dioxide (22-29) mmol/L Anion Gap (5-19) BUN (6-20) mg/dL Creatinine (0.5-0.9) mg/dL GFR Calculation (90-130) mL/min Glucose (65-115) mg/dL Calculated Osmolal ity (285-295) mOsm/k g Calcium (8.5-10.5) mg/dL Total Bilirubin (0.15-1.2) mg/dL AST (0-32) U/L ALT (0-33) U/L Alkaline Phosphata se (35-105) IU/L Total Protein (6.6-8.7) g/dL Albumin (3.5-5.2) g/dL Globulin (1.3-4.6) g/dL Lipase (13-60) U/L HCG, Qual (Negative) Urine Color (Yellow) Urine Appearance (CLEAR) Urine pH (5-7) Ur Specific Gravit y (1.005-1.030) Urine Protein (Negative) Urine Glucose (UA) (Normal) Urine Ketones (Negative) Urine Blood (Negative) Urine Nitrate (Negative) Urine Bilirubin (NEGATIVE) Urine Urobilinogen (Negative) mg/dL Ur Leukocyte Maame ase (Negative) Urine RBC (0-2) /hpf Urine WBC (0-5) /hpf Ur Squamous Epith Cells (0-5) Amorphous Sediment Urine Bacteria (NONE) Hyaline Casts Salicylates < 0.3 L (3-10) mg/dL Urine Opiates Scre en (Negative) ng/mL Acetaminophen < 5.0 L (10-30) ug/mL Ur Barbiturates Sc reen (Negative) ng/mL Ur Phencyclidine S crn (Negative) ng/mL Ur Amphetamines Sc reen (Negative) ng/mL U Benzodiazepines Scrn (Negative) ng/mL Urine Cocaine Scre en (Negative) ng/mL U Marijuana (THC) Screen (Negative) ng/mL Hepatitis A IgM Ab Non-reactive (Nonreactive) Hep Bs Antigen Non-reactive (Nonreactive) Hep Bs Antibody 3027.0 H (0-8.5) Hep B Core Total A b Non-reactive (Nonreactive) Hepatitis C Antibo dy Non-reactive (Nonreactive) 12/04/19 12/04/19 Range/Units 08:45 08:45 WBC (4.0-10.0) 10^3/ uL RBC (4.1-5.3) 10^6/u L Hgb (11.5-15.3) g/dL Hct (37.0-47.0) % MCV (81-99) fL MCH (28.0-34.0) pg MCHC (30.0-36.0) g/dL RDW (12.1-15.1) % Plt Count (130-400) 10^3/c mm MPV (7.4-10.4) fL Neut % (Auto) % Lymph % (Auto) % Mcintosh % (Auto) % Eos % (Auto) % Baso % (Auto) % Neut # (Auto) (1.8-7.7) 10^3/u L Lymph # (Auto) (0.8-4.8) 10^3/u L Mcintosh # (Auto) (0.2-0.9) 10^3/u L Eos # (Auto) (0.0-0.8) 10^3/u L Baso # (Auto) (0.0-0.1) 10^3/u L Nucleated RBC % (a uto) % Nucleated RBCs # /100WBC PT (10.5-13.3) SECO NDS INR (0.8-1.2) Sodium (136-145) mmol/L Potassium (3.5-5.1) mmol/L Chloride (98-107) mmol/L Carbon Dioxide (22-29) mmol/L Anion Gap (5-19) BUN (6-20) mg/dL Creatinine (0.5-0.9) mg/dL GFR Calculation (90-130) mL/min Glucose (65-115) mg/dL Calculated Osmolal ity (285-295) mOsm/k g Calcium (8.5-10.5) mg/dL Total Bilirubin (0.15-1.2) mg/dL AST (0-32) U/L ALT (0-33) U/L Alkaline Phosphata se (35-105) IU/L Total Protein (6.6-8.7) g/dL Albumin (3.5-5.2) g/dL Globulin (1.3-4.6) g/dL Lipase (13-60) U/L HCG, Qual (Negative) Urine Color Yellow (Yellow) Urine Appearance Hazy A (CLEAR) Urine pH 5 (5-7) Ur Specific Gravit y 1.020 (1.005-1.030) Urine Protein Trace (Negative) Urine Glucose (UA) Norm (Normal) Urine Ketones Negative (Negative) Urine Blood Neg (Negative) Urine Nitrate Negative (Negative) Urine Bilirubin 1+ H (NEGATIVE) Urine Urobilinogen 4 H (Negative) mg/dL Ur Leukocyte Maame ase Negative (Negative) Urine RBC None (0-2) /hpf Urine WBC None (0-5) /hpf Ur Squamous Epith Cells 0-4 H (0-5) Amorphous Sediment 1+ Urine Bacteria 1+ H (NONE) Hyaline Casts 0-4 H Salicylates (3-10) mg/dL Urine Opiates Scre en Positive H (Negative) ng/mL Acetaminophen (10-30) ug/mL Ur Barbiturates Sc reen Negative (Negative) ng/mL Ur Phencyclidine S crn Negative (Negative) ng/mL Ur Amphetamines Sc reen Negative (Negative) ng/mL U Benzodiazepines Scrn Negative (Negative) ng/mL Urine Cocaine Scre en Negative (Negative) ng/mL U Marijuana (THC) Screen Negative (Negative) ng/mL Hepatitis A IgM Ab (Nonreactive) Hep Bs Antigen (Nonreactive) Hep Bs Antibody (0-8.5) Hep B Core Total A b (Nonreactive) Hepatitis C Antibo dy (Nonreactive) Imaging Data: CT Abd/Pel: Attestation: I personally reviewed and interpreted this imaging study as follows: Radiologist's impression: [place] [address] CT Scan Report Signed Patient: Lorraine Curry Unit #: [id number] : 1985 Age/Sex: 34 / F ADM Date: 12/04/19 Loc: ER Room/Bed: Attending Dr: Ordering Provider/Ordering MD: Quinn Zhong Date of Service: 12/04/19 Procedure(s): CT abdomen pelvis con [id number] Accession Number(s): [id number] Report Number: [id number] PROCEDURE INFORMATION: Exam: CT Abdomen And Pelvis Without Contrast Exam date and time: 12/04/2019 8:36 AM Age: 34 years old Clinical indication: Other: Unable to urinate; Additional info: Abdominal pain TECHNIQUE: Imaging protocol: Computed tomography of the abdomen and pelvis without contrast. Total DLP: 1357.33 mGy-cm Radiation optimization: All CT scans at this facility use at least one of these dose optimization techniques: automated exposure control; mA and/or kV adjustment per patient size (includes targeted exams where dose is matched to clinical indication); or iterative reconstruction. COMPARISON: CT Abdomen/Pelvis Renal [id number] 08/24/2019 10:[address] of the abdomen and pelvis 10/28/2019. FINDINGS: Lungs: There is mild bibasilar subsegmental atelectasis. The visualized lung bases are otherwise grossly clear. Mediastinum: There is a small hiatal hernia. Liver: Unchanged mild hepatomegaly and hepatic steatosis. Gallbladder and bile ducts: The gallbladder surgically absent. Pancreas: No ductal dilation. Spleen: No splenomegaly. Adrenals: No mass. Kidneys and ureters: No hydronephrosis. Stomach and bowel: Large ovoid low-attenuation lesion within the low midline abdomen/pelvis is again noted (image 69, series 2), today measuring approximately 11.3 x 8.7 x 9.5 cm (previously 11.1 x 8.9 x 9.3 cm). There is unchanged abutment of bilateral ovaries left greater than right. No obstruction. No mucosal thickening. Appendix: No evidence of appendicitis. Intraperitoneal space: No free air. No significant fluid collection. Vasculature: No abdominal aortic aneurysm. Lymph nodes: No enlarged lymph nodes. Bladder: The bladder is decompressed with a Lee catheter in place and a small amount of intraluminal air. Reproductive: Unchanged abutment of the ovaries left greater than right by the large low attenuating mass within the midline abdomen/pelvis. Bones/joints: There are no acute osseous findings. Soft tissues: Mild anterior abdominal wall soft tissue edema is not significantly changed. There is a small amount of fat within the umbilicus. CT/CT abdomen pelvis wo con [id number] IMPRESSION: 1. Stable to minimal increase in size of the large low attenuating mass within the lower abdomen and pelvis, today measuring 11.3 x 8.7 x 9.5 cm (previously 11.1 x 8.9 x 9.3 cm). Differential considerations are unchanged and include a serous or mucinous cystic neoplasm. See previous recommendations from exam 10/28/2019. Otherwise, no acute intra-abdominal process identified. 2. No evidence of hydronephrosis. No renal or ureteral calcifications are identified. The bladder is decompressed with a Lee catheter in place. 3. Additional nonacute findings as detailed above. Radiation Dose CTDIVOL = (mGy): DLP = 1357.33 (mGy-cm) Dictated By: Poli Horton MD Signed By: Poli Horton MD Signed Date/Time: 12/04/1944 DD/ 1 Discharge Plan Discharge Admit Provider: Haroldo Wilder Clinical Impression: High creatinine Condition: Stable Discharge Date/Time: 12/04/19 12:17 Coding Level of Care Code ED Cargoman for Chg Fwd Exam Comprehensive Documented by User: Selvin Mann DO 12/06/19 13:08 HPI - Female Genitourinary General: Chief complaint: Urogenital-Female Stated complaint: unable to urinate *2 days Time Seen by Provider: 12/04/19 07:18 History of Present Illness: HPI Narrative: Patient initially seen by midlevel. Was asked see the patient to consult and evaluate for possible admission. Midlevel's notes reviewed history corresponds with what the patient discussed with myself. Associated symptoms: Deny nausea Review of Systems Const: Denies: fever, chills, body aches, change in appetite, fatigue or malaise ENMT: Denies: throat pain, ear pain, nasal discharge or nasal congestion Card: Denies: chest pain, edema, shortness of breath on exertion or shortness of breath when lying down Resp: Denies: shortness of breath, productive cough or non-productive cough GI: Denies: nausea, vomiting, vomiting blood, coffee grounds in vomit, diarrhea, constipation, bloating, blood in stool or black tarry stool : Denies: flank pain, difficulty urinating, painful urination, urinary frequency or urinary urgency Skin/Breast: Denies: rash or itching PFSH ED PFSH: Family History Father CAD (coronary artery disease) Diabetes Hypertension Family/Other Cancer Mother Diabetes Hypertension Social History Smoking and tobacco status: current every day smoker cigarettes Packs smoked per day: 1 Alcohol intake: never Substance/Drug Use: never Household members: spouse and family Marital status: Current occupational status: disabled History of recent travel: No Physical Exam Const: GENERAL APPEARANCE: cooperative and comfortable ORIENTATION/CONSCIOUSNESS: Yes awake, Yes oriented to person, Yes oriented to place and Yes oriented to time HENMT: COMMON NORMALS: normocephalic, head/scalp atraumatic, hearing grossly normal bilaterally, external ears normal, EAC's normal, TM's normal bilaterally, nasal mucous membranes and turbinates normal, moist oral mucous membranes and oropharynx normal HEAD & SCALP: normocephalic and atraumatic NOSE: nasal mucous membranes and turbinates normal EXTERNAL EAR: Yes external ears normal EXTERNAL AUDITORY CANAL: EAC's normal TYMPANIC MEMBRANE: TM's normal bilaterally Eye: COMMON NORMALS: PERRL, EOMs intact bilaterally, conjunctivae normal and no scleral icterus CONJUNCTIVA: Yes conjunctivae normal PUPIL: Yes PERRL Neck/C-Spine: COMMON NORMALS: full ROM, no lymphadenopathy, supple and no JVD Lymph: LYMPHATIC: no lymphadenopathy noted and no lymphedema noted Resp: COMMON NORMALS: normal respiratory effort, no retractions, no use of accessory muscles and clear to auscultation bilaterally AUSCULTATION: clear to auscultation bilaterally Cardio: COMMON NORMALS: no JVD, regular rate, regular rhythm and no murmurs RATE: regular rate RHYTHM: regular rhythm GI: COMMON NORMALS: soft to palpation and no hepatosplenomegaly AUSCULTATION: Yes normoactive bowel sounds PALPATION: Yes soft, No tender, No guarding and Yes no hepatosplenomegaly Extremity: COMMON NORMALS: normal to inspection, normal capillary refill, no clubbing, cyanosis or edema, no calf tenderness and no pedal edema Neuro: SENSORIUM/ORIENTATION: Yes oriented to person, Yes oriented to place and Yes oriented to time Skin: COMMON NORMALS: no rashes or lesions noted GENERAL SKIN EXAM: no rashes or lesions noted Course Vital Signs: Vital signs: Vital Signs Temperature 98.2 F 12/06/19 08:00 Pulse Rate 116 H 12/06/19 10:00 Respiratory Rate 15 12/06/19 10:12 Blood Pressure 124/68 12/06/19 10:00 Pulse Oximetry 98 12/06/19 10:00 MDM - Female MDM Narrative: Medical decision making narrative: Patient presented with difficulty urinating as her chief complaint. Ultrasound initially thought she had 750 mL in her bladder but when the Lee was placed she has 200 repeat ultrasound to look like there still remains some urine looking at the CT the bladder is completely decompressed I think they were actually scanning her uterine mass. Some of her anatomical landmarks are blurred by her body habitus. She does have acute kidney injury does look like it is more prerenal we will go ahead and admit her for hydration and close follow-up. Also concern her elevated liver functions a hepatitis profile is been ordered. Patient appears to have some obstructive sleep apnea when I went into the room to see her she was sleeping sitting up and her airway did appear to be compromised her head was tipped forward. She may need further evaluation for this as well she is not already using CPAP. Lab Data: Labs: Lab Results 12/04/19 12/04/19 12/04/19 Range/Units 07:48 07:48 07:48 WBC 13.2 H (4.0-10.0) 10^3/ uL RBC 4.41 (4.1-5.3) 10^6/u L Hgb 13.1 (11.5-15.3) g/dL Hct 40.6 (37.0-47.0) % MCV 92.1 (81-99) fL MCH 29.7 (28.0-34.0) pg MCHC 32.3 (30.0-36.0) g/dL RDW 13.4 (12.1-15.1) % Plt Count 303 (130-400) 10^3/c mm MPV 11.1 H (7.4-10.4) fL Neut % (Auto) 78.3 % Lymph % (Auto) 12.5 % Mcintosh % (Auto) 6.1 % Eos % (Auto) 1.9 % Baso % (Auto) 0.3 % Neut # (Auto) 10.4 H (1.8-7.7) 10^3/u L Lymph # (Auto) 1.7 (0.8-4.8) 10^3/u L Mcintosh # (Auto) 0.8 (0.2-0.9) 10^3/u L Eos # (Auto) 0.3 (0.0-0.8) 10^3/u L Baso # (Auto) 0.0 (0.0-0.1) 10^3/u L Nucleated RBC % (a uto) 0 % Nucleated RBCs # 0.0 /100WBC PT (10.5-13.3) SECO NDS INR (0.8-1.2) Sodium 132 L (136-145) mmol/L Potassium 4.8 (3.5-5.1) mmol/L Chloride 94 L (98-107) mmol/L Carbon Dioxide 25 (22-29) mmol/L Anion Gap 17.8 (5-19) BUN 42 H (6-20) mg/dL Creatinine 3.2 H (0.5-0.9) mg/dL GFR Calculation 16.8 L (90-130) mL/min Glucose 183 H (65-115) mg/dL Calculated Osmolal ity 276 L (285-295) mOsm/k g Calcium 9.1 (8.5-10.5) mg/dL Total Bilirubin 1.8 H (0.15-1.2) mg/dL AST 229 H (0-32) U/L ALT 363 H (0-33) U/L Alkaline Phosphata se 190 H (35-105) IU/L Total Protein 7.5 (6.6-8.7) g/dL Albumin 4.0 (3.5-5.2) g/dL Globulin 3.5 (1.3-4.6) g/dL Lipase 31 (13-60) U/L HCG, Qual Negative (Negative) Urine Color (Yellow) Urine Appearance (CLEAR) Urine pH (5-7) Ur Specific Gravit y (1.005-1.030) Urine Protein (Negative) Urine Glucose (UA) (Normal) Urine Ketones (Negative) Urine Blood (Negative) Urine Nitrate (Negative) Urine Bilirubin (NEGATIVE) Urine Urobilinogen (Negative) mg/dL Ur Leukocyte Maame ase (Negative) Urine RBC (0-2) /hpf Urine WBC (0-5) /hpf Ur Squamous Epith Cells (0-5) Amorphous Sediment Urine Bacteria (NONE) Hyaline Casts Salicylates (3-10) mg/dL Urine Opiates Scre en (Negative) ng/mL Acetaminophen (10-30) ug/mL Ur Barbiturates Sc reen (Negative) ng/mL Ur Phencyclidine S crn (Negative) ng/mL Ur Amphetamines Sc reen (Negative) ng/mL U Benzodiazepines Scrn (Negative) ng/mL Urine Cocaine Scre en (Negative) ng/mL U Marijuana (THC) Screen (Negative) ng/mL Hepatitis A IgM Ab (Nonreactive) Hep Bs Antigen (Nonreactive) Hep Bs Antibody (0-8.5) Hep B Core Total A b (Nonreactive) Hepatitis C Antibo dy (Nonreactive) 12/04/19 12/04/19 12/04/19 Range/Units 07:48 07:48 07:48 WBC (4.0-10.0) 10^3/ uL RBC (4.1-5.3) 10^6/u L Hgb (11.5-15.3) g/dL Hct (37.0-47.0) % MCV (81-99) fL MCH (28.0-34.0) pg MCHC (30.0-36.0) g/dL RDW (12.1-15.1) % Plt Count (130-400) 10^3/c mm MPV (7.4-10.4) fL Neut % (Auto) % Lymph % (Auto) % Mcintosh % (Auto) % Eos % (Auto) % Baso % (Auto) % Neut # (Auto) (1.8-7.7) 10^3/u L Lymph # (Auto) (0.8-4.8) 10^3/u L Mcintosh # (Auto) (0.2-0.9) 10^3/u L Eos # (Auto) (0.0-0.8) 10^3/u L Baso # (Auto) (0.0-0.1) 10^3/u L Nucleated RBC % (a uto) % Nucleated RBCs # /100WBC PT 13.00 (10.5-13.3) SECO NDS INR 0.95 (0.8-1.2) Sodium (136-145) mmol/L Potassium (3.5-5.1) mmol/L Chloride (98-107) mmol/L Carbon Dioxide (22-29) mmol/L Anion Gap (5-19) BUN (6-20) mg/dL Creatinine (0.5-0.9) mg/dL GFR Calculation (90-130) mL/min Glucose (65-115) mg/dL Calculated Osmolal ity (285-295) mOsm/k g Calcium (8.5-10.5) mg/dL Total Bilirubin (0.15-1.2) mg/dL AST (0-32) U/L ALT (0-33) U/L Alkaline Phosphata se (35-105) IU/L Total Protein (6.6-8.7) g/dL Albumin (3.5-5.2) g/dL Globulin (1.3-4.6) g/dL Lipase (13-60) U/L HCG, Qual (Negative) Urine Color (Yellow) Urine Appearance (CLEAR) Urine pH (5-7) Ur Specific Gravit y (1.005-1.030) Urine Protein (Negative) Urine Glucose (UA) (Normal) Urine Ketones (Negative) Urine Blood (Negative) Urine Nitrate (Negative) Urine Bilirubin (NEGATIVE) Urine Urobilinogen (Negative) mg/dL Ur Leukocyte Maame ase (Negative) Urine RBC (0-2) /hpf Urine WBC (0-5) /hpf Ur Squamous Epith Cells (0-5) Amorphous Sediment Urine Bacteria (NONE) Hyaline Casts Salicylates < 0.3 L (3-10) mg/dL Urine Opiates Scre en (Negative) ng/mL Acetaminophen < 5.0 L (10-30) ug/mL Ur Barbiturates Sc reen (Negative) ng/mL Ur Phencyclidine S crn (Negative) ng/mL Ur Amphetamines Sc reen (Negative) ng/mL U Benzodiazepines Scrn (Negative) ng/mL Urine Cocaine Scre en (Negative) ng/mL U Marijuana (THC) Screen (Negative) ng/mL Hepatitis A IgM Ab Non-reactive (Nonreactive) Hep Bs Antigen Non-reactive (Nonreactive) Hep Bs Antibody 3027.0 H (0-8.5) Hep B Core Total A b Non-reactive (Nonreactive) Hepatitis C Antibo dy Non-reactive (Nonreactive) 12/04/19 12/04/19 Range/Units 08:45 08:45 WBC (4.0-10.0) 10^3/ uL RBC (4.1-5.3) 10^6/u L Hgb (11.5-15.3) g/dL Hct (37.0-47.0) % MCV (81-99) fL MCH (28.0-34.0) pg MCHC (30.0-36.0) g/dL RDW (12.1-15.1) % Plt Count (130-400) 10^3/c mm MPV (7.4-10.4) fL Neut % (Auto) % Lymph % (Auto) % Mcintosh % (Auto) % Eos % (Auto) % Baso % (Auto) % Neut # (Auto) (1.8-7.7) 10^3/u L Lymph # (Auto) (0.8-4.8) 10^3/u L [place] # (Auto) (0.2-0.9) 10^3/u L Eos # (Auto) (0.0-0.8) 10^3/u L Baso # (Auto) (0.0-0.1) 10^3/u L Nucleated RBC % (a uto) % Nucleated RBCs # /100WBC PT (10.5-13.3) SECO NDS INR (0.8-1.2) Sodium (136-145) mmol/L Potassium (3.5-5.1) mmol/L Chloride (98-107) mmol/L Carbon Dioxide (22-29) mmol/L Anion Gap (5-19) BUN (6-20) mg/dL Creatinine (0.5-0.9) mg/dL GFR Calculation (90-130) mL/min Glucose (65-115) mg/dL Calculated Osmolal ity (285-295) mOsm/k g Calcium (8.5-10.5) mg/dL Total Bilirubin (0.15-1.2) mg/dL AST (0-32) U/L ALT (0-33) U/L Alkaline Phosphata se (35-105) IU/L Total Protein (6.6-8.7) g/dL Albumin (3.5-5.2) g/dL Globulin (1.3-4.6) g/dL Lipase (13-60) U/L HCG, Qual (Negative) Urine Color Yellow (Yellow) Urine Appearance Hazy A (CLEAR) Urine pH 5 (5-7) Ur Specific Gravit y 1.020 (1.005-1.030) Urine Protein Trace (Negative) Urine Glucose (UA) Norm (Normal) Urine Ketones Negative (Negative) Urine Blood Neg (Negative) Urine Nitrate Negative (Negative) Urine Bilirubin 1+ H (NEGATIVE) Urine Urobilinogen 4 H (Negative) mg/dL Ur Leukocyte Maame ase Negative (Negative) Urine RBC None (0-2) /hpf Urine WBC None (0-5) /hpf Ur Squamous Epith Cells 0-4 H (0-5) Amorphous Sediment 1+ Urine Bacteria 1+ H (NONE) Hyaline Casts 0-4 H Salicylates (3-10) mg/dL Urine Opiates Scre en Positive H (Negative) ng/mL Acetaminophen (10-30) ug/mL Ur Barbiturates Sc reen Negative (Negative) ng/mL Ur Phencyclidine S crn Negative (Negative) ng/mL Ur Amphetamines Sc reen Negative (Negative) ng/mL U Benzodiazepines Scrn Negative (Negative) ng/mL Urine Cocaine Scre en Negative (Negative) ng/mL U Marijuana (THC) Screen Negative (Negative) ng/mL Hepatitis A IgM Ab (Nonreactive) Hep Bs Antigen (Nonreactive) Hep Bs Antibody (0-8.5) Hep B Core Total A b (Nonreactive) Hepatitis C Antibo dy (Nonreactive) Discharge Plan Discharge Admit Provider: Haroldo Wilder Clinical Impression: High creatinine Condition: Stable Discharge Date/Time: 12/04/19 12:17 Coding Level of Care Code ED C[facility] for [facility] Fwd Exam Comprehensive
[2019-12-04 08:01] LABS: Basophils % 0.3 %; Eosinophils # 0.3 10^3/uL (0.0-0.8); Eosinophils % 1.9 %; Hematocrit 40.6 % (37.0-47.0); Hemoglobin 13.1 g/dL (11.5-15.3); Lymphocytes # 1.7 10^3/uL (0.8-4.8); Lymphocytes % 12.5 %; Mean Corpuscular HGB Conc 32.3 g/dL (30.0-36.0); Mean Corpuscular Hemoglobin 29.7 pg (28.0-34.0); Mean Corpuscular Volume 92.1 fL (81-99); Mean Platelet Volume 11.1 fL (7.4-10.4); Monocytes # 0.8 10^3/uL (0.2-0.9); Monocytes % 6.1 %; Neutrophils # 10.4 10^3/uL (1.8-7.7); Neutrophils % 78.3 %; Nucleated Red Blood Cells % 0 %; Platelet Count 303 10^3/cmm (130-400); Red Blood Count 4.41 10^6/uL (4.1-5.3); Red Cell Distribution Width 13.4 % (12.1-15.1); White Blood Count 13.2 10^3/uL (4.0-10.0)
[2019-12-04] MEDS: morphine 4 mg/mL SDV 1 mL IVP ×2 (08:09→09:29)
[2019-12-04] MEDS: sodium chloride 0.9% 1,000 ML 999 ML IV ×2 (08:10→10:25)
[2019-12-04 08:24] LABS: Alanine Aminotransferase 363 U/L (0-33); Alkaline Phosphatase 190 IU/L (35-105); Anion Gap 17.8 (5-19); Aspartate Amino Transferase 229 U/L (0-32); Blood Urea Nitrogen 42 mg/dL (6-20); Calcium 9.1 mg/dL (8.5-10.5); Carbon Dioxide 25 mmol/L (22-29); Chloride 94 mmol/L (98-107); Globulin 3.5 g/dL (1.3-4.6); Glomerular Filtration Rate 16.8 mL/min (90-130); Glucose 183 mg/dL (65-115); Lipase 31 U/L (13-60); Osmolality Calculated 276 mOsm/kg (285-295); Potassium 4.8 mmol/L (3.5-5.1); Sodium 132 mmol/L (136-145); Total Bilirubin 1.8 mg/dL (0.15-1.2); Total Protein 7.5 g/dL (6.6-8.7)
[2019-12-04 08:25] LABS: HCG, Serum Qual Negative (Negative)
--- NOTE | 2019-12-04 08:31 | CTR_ITS ---
PROCEDURE INFORMATION: Exam: CT Abdomen And Pelvis Without Contrast Exam date and time: 12/04/2019 8:36 AM Age: 34 years old Clinical indication: Other: Unable to urinate; Additional info: Abdominal pain TECHNIQUE: Imaging protocol: Computed tomography of the abdomen and pelvis without contrast. Total DLP: 1357.33 mGy-cm Radiation optimization: All CT scans at this facility use at least one of these dose optimization techniques: automated exposure control; mA and/or kV adjustment per patient size (includes targeted exams where dose is matched to clinical indication); or iterative reconstruction. COMPARISON: CT Abdomen/Pelvis Renal [id number] 08/24/2019 10:[address] of the abdomen and pelvis 10/28/2019. FINDINGS: Lungs: There is mild bibasilar subsegmental atelectasis. The visualized lung bases are otherwise grossly clear. Mediastinum: There is a small hiatal hernia. Liver: Unchanged mild hepatomegaly and hepatic steatosis. Gallbladder and bile ducts: The gallbladder surgically absent. Pancreas: No ductal dilation. Spleen: No splenomegaly. Adrenals: No mass. Kidneys and ureters: No hydronephrosis. Stomach and bowel: Large ovoid low-attenuation lesion within the low midline abdomen/pelvis is again noted (image 69, series 2), today measuring approximately 11.3 x 8.7 x 9.5 cm (previously 11.1 x 8.9 x 9.3 cm). There is unchanged abutment of bilateral ovaries left greater than right. No obstruction. No mucosal thickening. Appendix: No evidence of appendicitis. Intraperitoneal space: No free air. No significant fluid collection. Vasculature: No abdominal aortic aneurysm. Lymph nodes: No enlarged lymph nodes. Bladder: The bladder is decompressed with a Lee catheter in place and a small amount of intraluminal air. Reproductive: Unchanged abutment of the ovaries left greater than right by the large low attenuating mass within the midline abdomen/pelvis. Bones/joints: There are no acute osseous findings. Soft tissues: Mild anterior abdominal wall soft tissue edema is not significantly changed. There is a small amount of fat within the umbilicus. CT/CT abdomen pelvis wo con [id number] IMPRESSION: 1. Stable to minimal increase in size of the large low attenuating mass within the lower abdomen and pelvis, today measuring 11.3 x 8.7 x 9.5 cm (previously 11.1 x 8.9 x 9.3 cm). Differential considerations are unchanged and include a serous or mucinous cystic neoplasm. See previous recommendations from exam 10/28/2019. Otherwise, no acute intra-abdominal process identified. 2. No evidence of hydronephrosis. No renal or ureteral calcifications are identified. The bladder is decompressed with a Lee catheter in place. 3. Additional nonacute findings as detailed above. Radiation Dose CTDIVOL = (mGy): DLP = 1357.33 (mGy-cm)
[2019-12-04 09:30] LABS: Bilirubin Urine 1+ (NEGATIVE); Blood Urine Neg (Negative); Glucose Urine UA Norm (Normal); Ketones Urine Negative (Negative); Leukocyte Esterase Urine Negative (Negative); Nitrate Urine Negative (Negative); Protein Urine Trace (Negative); Urine Appearance Hazy (CLEAR); Urine Color Yellow (Yellow); Urobilinogen Urine 4 mg/dL (Negative); pH Urine 5 (5-7)
[2019-12-04 09:54] LABS: Amorphous Sediment Urine 1+; Bacteria Urine 1+; Squamous Epithelial Cell Urine 0-4 (0-5)
[2019-12-04 09:55] LABS: Add Urine Culture? No; Hyaline Casts Urine 0-4
--- NOTE | 2019-12-04 12:26 | PM.HP ---
Providers/Chief Complaint Admitting Physician: Haroldo Wilder MD Primary Care Provider: Celina Ruiz DO Chief Complaint: abd pain History of Present Illness Lorraine Curry is a 34 year old female that presents to the hospital with inability to urinate. She reports it is been going on for 24 hours. She reports no fever, nausea, or vomiting. She reports most of the pain is in the right side, difficult to distinguish where on the right side this is. No hematuria. No cough, congestion, shortness of breath. She is recently been diagnosed with a pelvic mass, and is to see gynecology oncology. In the emergency department she was found to have urinary retention, and a Lee was placed. She reports no significant change in her pain with this. Review of Systems General: Reports: 10 or more systems reviewed and unremarkable except in HPI and below Const: Denies: fever or chills Eyes: Denies: blurry vision ENMT: Denies: throat pain Card: Denies: chest pain Resp: Denies: shortness of breath GI: Reports: abdominal pain; Denies: nausea or vomiting : Reports: difficulty urinating Musc: Reports: back pain; Denies: neck pain Skin/Breast: Denies: rash Neuro: Denies: headache Psych: Reports: anxiety Endo: Denies: excessive urination Sunday/Lymph: Denies: easy bruising All/Imm: Denies: hives Medications/Allergies Home Medications Medication Instructions Recorded Confirmed Last Taken Type multivitamin [Multiple Vitamins] 1 tab PO DAILY 12/04/19 12/04/19 12/03/19 History multivitamin with minerals 1 tab PO DAILY 12/04/19 12/04/19 12/03/19 History [Hair,Skin and Nails] Allergies Allergy/AdvReac Type Severity Reaction Status Date / Time No Known Allergies Allergy Verified 11/24/19 09:36 PFSH Acute PFSH: Medical History (Updated 12/04/19 @ 12:40 by Haroldo Wilder MD) Amenorrhea Asthma Benign essential HTN Bilateral chronic knee pain Bilateral leg edema Diabetes mellitus, without long-term current use of insulin GERD (gastroesophageal reflux disease) Morbid obesity with BMI of 60.0-69.9, adult Muscle spasms of both lower extremities Prolonged depression Spinal stenosis, thoracic region Surgical History History of cholecystectomy Family History Father CAD (coronary artery disease) Diabetes Hypertension Family/Other Cancer Mother Diabetes Hypertension Social History (Updated 12/04/19 @ 12:34 by Haroldo Wilder MD) Smoking and tobacco status: current every day smoker cigarettes Packs smoked per day: 1 Alcohol intake: never Substance/Drug Use: never Household members: spouse and family Marital status: Current occupational status: disabled History of recent travel: No Vitals/I&O/Wt Last Vital Signs Temp 98.3 F 12/04/19 07:12 Pulse 84 12/04/19 11:58 Resp 18 12/04/19 11:58 BP 113/65 12/04/19 11:58 Pulse Ox 93 12/04/19 11:58 Weight last 48 hrs Weight 152.861 kg Physical Exam Narrative: EXAM NARRATIVE: General exam is an obese white female, complaining of pain. HEENT: Pupils equally round. Oropharynx clear. Neck is obese Cardiovascular regular rate and rhythm, heart sounds distant Lungs clear no wheezing or crackles Abdomen is obese. Tenderness is noted on the right side. It is difficult to delineate where exactly on the right side this is. No obvious masses but obesity limits the exam. demonstrates Lee Extremities trace edema bilaterally. Cap refill brisk. No cyanosis or clubbing Skin no rash Neuro no focal deficits. Urinary Catheter Management^: Lee: Cath Placed During This Visit: yes Urinary Catheter Date of Insertion: 12/04/19 Urinary Catheter Time of Insertion: 09:19 Data : 12/04/19 07:48 12/04/19 07:48 Other data: Liver function tests are abnormal with a bilirubin of 1.8, AST 229, ALT 363, alkaline phosphatase 190. Albumin is normal. Hepatitis panel is ordered. Urinalysis demonstrates no red blood cells and no white blood cells. CT demonstrated minimal increase in size of pelvic mass, approximately 11 x 9 x 9. There was no evidence of hydronephrosis and bladder was decompressed with Lee. Chest x-ray per my read no infiltrate, difficult to interpret secondary to obesity. EKG demonstrates normal sinus rhythm, normal axis, no significant acute changes. A&P Assessment and plan (1) Acute renal failure: Presumably from urinary retention, poor intake although no hydronephrosis seen on CT scan. Lisinopril, hydrochlorothiazide, Aldactone, naproxen could have also played a role. We will have to see if she is taking anything [id number] as well. Hydration Close follow-up of renal function Status: Acute Code(s): N17.9 - Acute kidney failure, unspecified (2) Urinary retention: Lee catheter Status: Acute Code(s): R33.9 - Retention of urine, unspecified (3) Pelvic mass: Will need follow-up with her gynecology oncology physician in [place] that she has been referred to. Status: Acute Code(s): R19.00 - Intra-abdominal and pelvic swelling, mass and lump, unspecified site Additional A&P Information Abdominal pain. Etiology uncertain. As this is right sided liver function tests been elevated or somewhat concerning. However, on review of her CAT scan it also is apparent she has a fair amount of stool on the right side of her abdomen. Will initiate some lactulose. Elevated liver function test. No obvious biliary etiology noted on CT scan. She has had a cholecystectomy. If this does not improve with hydration consider further evaluation with ultrasound which may not be useful or MRCP. Her liver function tests have been intermittently elevated in the past with the exception of bilirubin. Hepatitis panel has been ordered. Check acetaminophen level, INR. I suspect fatty liver will be the cause. history of asthma. Nebs as needed Morbid obesity Tobacco dependency, will be counseled on abstinence History of hypertension. Holding medicines currently secondary to renal failure with the exception of beta-claribel Type 2 diabetes. Sliding scale insulin Chronic pain Depression continue antidepressant GERD Heparin for DVT prophylaxis Full code Attestations Medical Necessity Statement*: Will need greater than 2 midnight stay for treatment of acute renal failure and urinary retention. Coding Level of Care Code Acute Director Pharmaceutical for [facility] Diagnoses Acute renal failure N17.9 Urinary retention R33.9 Pelvic mass R19.00
[2019-12-04 12:54] LABS: Glucose Point of Care 156 mg/dL (70-110)
[2019-12-04] MEDS: sodium chloride 0.9% 1,000 ML 100 ML IV (13:02)
[2019-12-04 13:11] LABS: Hepatitis A Antibody IgM. Non-Reactive (Nonreactive); Hepatitis B Surface Antigen. Non-Reactive (Nonreactive); Hepatitis C Virus Antibody Non-Reactive (Nonreactive)
[2019-12-04 13:41] LABS: INR 0.95 (0.8-1.2)
[2019-12-04 13:46] LABS: Amphetamines Screen Urine Negative (Negative); Barbiturates Screen Urine Negative (Negative); Benzodiazepines Screen Urine Negative (Negative); Cocaine Screen Urine Negative (Negative); Opiate Screen Urine Positive (Negative); PCP Screen Urine Negative (Negative); THC Screen Urine Negative (Negative)
[2019-12-04 13:56] LABS: Acetaminophen < 5.0 ug/mL (10-30); Salicylate < 0.3 mg/dL (3-10)
[2019-12-04] MEDS: heparin 5,000 unit/mL INJ 1 mL 5000 UNIT SUBCUT (14:04)
[2019-12-04] MEDS: lactulose oral liq 20 gm/30 mL UDC 10 GM PO ×2 (14:04→18:14)
[2019-12-04] MEDS: gabapentin 300 mg Capsule PO ×2 (14:04→21:26)
--- NOTE | 2019-12-04 14:31 | PC.NURSE ---
Patient c/o right lower abd pain crying and moaning. While nurse was assessing pain patient fell asleep in mid conversation. Cont pulse ox on room air 94%. Will monitor. Bed alarm on.
[2019-12-04 15:44] LABS: Ammonia 37 umol/L (11-51)
[2019-12-04 17:39] LABS: Glucose Point of Care 196 mg/dL (70-110)
[2019-12-04] MEDS: sennosides-docusate Tablet 2 TAB PO (18:14)
[2019-12-04 20:46] LABS: Glucose Point of Care 219 mg/dL (70-110)
[2019-12-04] MEDS: cyclobenzaprine 10 mg Tablet PO (21:26)
[2019-12-04] MEDS: TRAMadol 50 mg Tablet PO (21:26)
[2019-12-05] VITALS (34 sets, daily range): BP systolic 68–144; BP diastolic 41–81; PULSE 81–108; RESP 15–26; TEMP 36.4–36.9; O2SAT 89–100
--- NOTE | 2019-12-05 | SCC_ITS ---
Procedure Done: Ultrasound-guided right internal jugular vein temporary hemodialysis catheter placement 12 [place] 16 cm in length. 9.4 seconds of fluoroscopic guidance, for a cumulative dose of 4.62 mGy, was provided to Dr. Hernández by the radiology department. C-arm images of the chest were saved for the patient's permanent record. [facility]
[2019-12-05] MEDS: heparin 5,000 unit/mL INJ 1 mL 5000 UNIT SUBCUT (02:32)
[2019-12-05] MEDS: sodium chloride 0.9% 1,000 ML 100 ML IV (02:32)
[2019-12-05 06:03] LABS: Basophils # 0.1 10^3/uL (0.0-0.1); Basophils % 0.5 %; Eosinophils # 0.3 10^3/uL (0.0-0.8); Eosinophils % 1.9 %; Hematocrit 38.1 % (37.0-47.0); Hemoglobin 11.8 g/dL (11.5-15.3); Lymphocytes # 1.8 10^3/uL (0.8-4.8); Lymphocytes % 13.6 %; Mean Corpuscular Hemoglobin 28.8 pg (28.0-34.0); Mean Corpuscular Volume 92.9 fL (81-99); Mean Platelet Volume 11.7 fL (7.4-10.4); Monocytes # 1.2 10^3/uL (0.2-0.9); Monocytes % 8.9 %; Neutrophils # 9.5 10^3/uL (1.8-7.7); Neutrophils % 73.9 %; Nucleated Red Blood Cells % 0 %; Platelet Count 284 10^3/cmm (130-400); Red Cell Distribution Width 13.7 % (12.1-15.1); White Blood Count 12.9 10^3/uL (4.0-10.0)
[2019-12-05 06:23] LABS: Alanine Aminotransferase 383 U/L (0-33); Albumin Level 3.9 g/dL (3.5-5.2); Alkaline Phosphatase 206 IU/L (35-105); Aspartate Amino Transferase 240 U/L (0-32); Blood Urea Nitrogen 44 mg/dL (6-20); Carbon Dioxide 22 mmol/L (22-29); Chloride 95 mmol/L (98-107); Globulin 3.2 g/dL (1.3-4.6); Glomerular Filtration Rate 8.3 mL/min (90-130); Glucose 155 mg/dL (65-115); Osmolality Calculated 275 mOsm/kg (285-295); Sodium 132 mmol/L (136-145); Total Bilirubin 1.8 mg/dL (0.15-1.2); Total Protein 7.1 g/dL (6.6-8.7)
[2019-12-05 06:41] LABS: Glucose Point of Care 151 mg/dL (70-110)
--- NOTE | 2019-12-05 06:45 | PM.MISC ---
Miscellaneous Note Note: She was admitted yesterday for elevated creatinine and decreased urine output. Received call early this AM about decreased urine output and concern for catheter malfunction. PVR scan showed elevated volume. Cath irrrigated with full return of what was instilled. Cath changed. Had some grossly bloody drainage but not reported as severe. Was having some pain. CT in Oct and yesterday showed a pelvic mass that looks cystic. No hydronephrosis or evidence of ureteral obstruction. Bladder was decompressed with joya in good position yesterday and not significantly distended in October. I expect the bladder scan was was picking up the pelvic cyst And catheter placement in the emergency room there was about 200 cc returned. The bladder scan showed 700 cc. Creatinine 4 days ago was 0.8. Yesterday was 3.2. Today: 5.9. Most recent urine culture was c/w contamination. Nephrology has been consulted. I reviewed with Dr. Wilder my impressions. No formal urologic consultation required. I will be available if there is any urologic condition arising.
--- NOTE | 2019-12-05 07:34 | PM.CONSULT ---
Providers/Reason For Consult Consulting Physican/Specialty*: kenyetta mcnally md telenephrology Reason for Consult*: REJI Attending Physician: Haroldo Wilder MD Primary Care Provider: Celina Ruiz DO History of Present Illness History of Present Illness Lorraine Curry is a 34 year old female w/ enlargening pelvic mass who was admitted w/ hypotension, anuria x 1 day, confudion, and weakness. states poor appetite, co-morbidities include depressiob, htn, dm, ? DHEERAJ Review of Systems General: Reports: 10 or more systems reviewed and unremarkable except in HPI and below Narrative: weak, confused, poor appetite, dizzy, light-headed, nausea. no itching, no diarrhea, chronic sob, no cp, no uop, chronic leg edema, poor gluc cobtrol. not sure of meds- but took metformin, aldactone, lisinopril, hctz, and maybe naproxen for back pain. Meds/Allergies Home Medications and Allergies Home Medications Medication Instructions Recorded Confirmed Type atenolol 25 mg tablet 25 mg PO BID #180 tab 09/20/19 12/04/19 Rx cyclobenzaprine 10 mg tablet 10 mg PO TID #270 tab 09/20/19 12/04/19 Rx metformin 500 mg tablet 500 mg PO BID #180 tab 09/20/19 12/04/19 Rx citalopram 20 mg PO DAILY 10/19/19 12/04/19 History lisinopril-hydrochlorothiazide 1 tab PO DAILY 10/19/19 12/04/19 History spironolactone 25 mg PO DAILY 10/19/19 12/04/19 History dulaglutide 1.5 mg/0.5 mL 1.5 mg SUBCUT Q7D #2 ml 11/15/19 12/04/19 Rx subcutaneous pen injector omeprazole 40 mg capsule,delayed 40 mg PO DAILY #90 cap 11/16/19 12/04/19 Rx release albuterol sulfate 90 mcg/actuation 2 puff INHALATION Q6H PRN #8.5 gm 11/19/19 12/04/19 Rx aerosol inhaler tramadol 50 mg tablet 50 mg PO TID PRN 30 Days #90 tab 11/19/19 12/04/19 Rx gabapentin 300 mg capsule 300 mg PO TID #90 cap MDD 3 11/24/19 12/04/19 Rx naproxen [EC-Naprosyn] 500 mg PO BID PRN #20 tab 12/01/19 12/04/19 Rx multivitamin [Multiple Vitamins] 1 tab PO DAILY 12/04/19 12/04/19 History multivitamin with minerals 1 tab PO DAILY 12/04/19 12/04/19 History [Hair,Skin and Nails] Allergies Allergy/AdvReac Type Severity Reaction Status Date / Time No Known Allergies Allergy Verified 11/24/19 09:36 Current Medications Current Medications Generic Name Dose Route Start Last Admin Trade Name Freq PRN Reason Stop Dose Admin Heparin Sodium (Beef Lung) 5,000 unit 12/04/19 13:15 12/05/19 02:32 Heparin SUBCUT 5,000 unit Q12H MARY Administration Sodium Chloride 1,000 mls @ 150 mls/hr 12/04/19 12:20 12/05/19 02:32 Sodium Chloride 0.9% IV 100 mls/hr .[id number] MARY Administration Insulin Aspart 0 unit 12/04/19 18:00 12/04/19 18:15 Novolog SUBCUT 6 unit TIDWM MARY Administration Protocol Insulin Aspart 0 unit 12/04/19 21:00 12/04/19 21:27 Novolog SUBCUT 3 unit BEDTIME MARY Administration Protocol Lactulose 10 gm 12/04/19 13:20 12/04/19 18:14 Constulose PO 10 gm BID MARY Administration Senna/Docusate Sodium 2 tab 12/04/19 18:00 12/04/19 18:14 Senna-S PO 2 tab BID MARY Administration PFSH Acute PFSH: Medical History (Updated 12/04/19 @ 12:40 by Haroldo Wilder MD) Amenorrhea Asthma Benign essential HTN Bilateral chronic knee pain Bilateral leg edema Diabetes mellitus, without long-term current use of insulin GERD (gastroesophageal reflux disease) Morbid obesity with BMI of 60.0-69.9, adult Muscle spasms of both lower extremities Prolonged depression Spinal stenosis, thoracic region Surgical History History of cholecystectomy Family History Father CAD (coronary artery disease) Diabetes Hypertension Family/Other Cancer Mother Diabetes Hypertension Social History (Updated 12/04/19 @ 12:34 by Haroldo Wilder MD) Smoking and tobacco status: current every day smoker cigarettes Packs smoked per day: 1 Alcohol intake: never Substance/Drug Use: never Household members: spouse and family Marital status: Current occupational status: disabled History of recent travel: No Vitals/I&O/Wt Last Vital Signs Temp 98.0 F 12/05/19 04:00 Pulse 90 12/05/19 04:00 Resp 18 12/05/19 04:00 BP 88/56 12/05/19 04:00 Pulse Ox 92 12/05/19 04:00 12/04/19 12/05/19 12/05/19 22:59 06:59 14:59 Intake Total 240 / 240 1000 / 1240 Output Total 175 / 175 Balance 240 / 240 825 / 1065 Weight last 48 hrs Weight 152.861 kg Physical Exam Narrative: EXAM NARRATIVE: morbidly obese female sitting up using nc02. nard heent- nc/at, eomi neck- obese lung b/l crackles heart reg, +JORDAN abd soft, nt, nd, +BS ext + b/l edema + joya neuro- lethargic, from x 4 Urinary Catheter Management^: Joya: Cath Placed During This Visit: yes, but has since been removed by the nurse Reason for Continuing Indwelling Catheter: Acute Urinary Retention or Obstruction Urinary Catheter Date of Insertion: 12/05/19 Urinary Catheter Time of Insertion: 05:45 Date Urinary Catheter Removed: 12/05/19 Time Urinary Catheter Discontinued: 05:00 Data Labs: Other Labs: Abnormal lab results 12/04/19 12/04/19 12/04/19 Range/Units 07:48 07:48 07:48 WBC 13.2 H (4.0-10.0) 10^3/ uL MPV 11.1 H (7.4-10.4) fL Neut # (Auto) 10.4 H (1.8-7.7) 10^3/u L [place] # (Auto) (0.2-0.9) 10^3/u L Sodium 132 L (136-145) mmol/L Chloride 94 L (98-107) mmol/L Anion Gap (5-19) BUN 42 H (6-20) mg/dL Creatinine 3.2 H (0.5-0.9) mg/dL GFR Calculation 16.8 L (90-130) mL/min Glucose 183 H (65-115) mg/dL Calculated Osmolal ity 276 L (285-295) mOsm/k g Total Bilirubin 1.8 H (0.15-1.2) mg/dL AST 229 H (0-32) U/L ALT 363 H (0-33) U/L Alkaline Phosphata se 190 H (35-105) IU/L Urine Appearance (CLEAR) Urine Bilirubin (NEGATIVE) Urine Urobilinogen (Negative) mg/dL Ur Squamous Epith Cells (0-5) Urine Bacteria (NONE) Hyaline Casts Salicylates (3-10) mg/dL Urine Opiates Scre en (Negative) ng/mL Acetaminophen (10-30) ug/mL Hep Bs Antibody 3027.0 H (0-8.5) 12/04/19 12/04/19 12/04/19 Range/Units 07:48 08:45 08:45 WBC (4.0-10.0) 10^3/ uL MPV (7.4-10.4) fL Neut # (Auto) (1.8-7.7) 10^3/u L [place] # (Auto) (0.2-0.9) 10^3/u L Sodium (136-145) mmol/L Chloride (98-107) mmol/L Anion Gap (5-19) BUN (6-20) mg/dL Creatinine (0.5-0.9) mg/dL GFR Calculation (90-130) mL/min Glucose (65-115) mg/dL Calculated Osmolal ity (285-295) mOsm/k g Total Bilirubin (0.15-1.2) mg/dL AST (0-32) U/L ALT (0-33) U/L Alkaline Phosphata se (35-105) IU/L Urine Appearance Hazy A (CLEAR) Urine Bilirubin 1+ H (NEGATIVE) Urine Urobilinogen 4 H (Negative) mg/dL Ur Squamous Epith Cells 0-4 H (0-5) Urine Bacteria 1+ H (NONE) Hyaline Casts 0-4 H Salicylates < 0.3 L (3-10) mg/dL Urine Opiates Scre en Positive H (Negative) ng/mL Acetaminophen < 5.0 L (10-30) ug/mL Hep Bs Antibody (0-8.5) 12/05/19 12/05/19 Range/Units 05:37 05:37 WBC 12.9 H (4.0-10.0) 10^3/ uL MPV 11.7 H (7.4-10.4) fL Neut # (Auto) 9.5 H (1.8-7.7) 10^3/u L [place] # (Auto) 1.2 H (0.2-0.9) 10^3/u L Sodium 132 L (136-145) mmol/L Chloride 95 L (98-107) mmol/L Anion Gap 20.0 H (5-19) BUN 44 H (6-20) mg/dL Creatinine 5.9 H* D (0.5-0.9) mg/dL GFR Calculation 8.3 L (90-130) mL/min Glucose 155 H (65-115) mg/dL Calculated Osmolal ity 275 L (285-295) mOsm/k g Total Bilirubin 1.8 H (0.15-1.2) mg/dL AST 240 H (0-32) U/L ALT 383 H (0-33) U/L Alkaline Phosphata se 206 H (35-105) IU/L Urine Appearance (CLEAR) Urine Bilirubin (NEGATIVE) Urine Urobilinogen (Negative) mg/dL Ur Squamous Epith Cells (0-5) Urine Bacteria (NONE) Hyaline Casts Salicylates (3-10) mg/dL Urine Opiates Scre en (Negative) ng/mL Acetaminophen (10-30) ug/mL Hep Bs Antibody (0-8.5) A&P Additional A&P Information 34 yr old female morbid obesity. 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 REJI- likely ATN from nsaid, leonidas-i, thiazide, and aldactone. BP remains low. no hydronephrosis on imaging -cr giuliana from 0.8 on 12/01/19 to 3.2 on 12/04/19 to 5.9 tjis morning. -u/a noted -h/o oxycodone- q if took a toxin -check abg -check ck to evaluate for rhabdo -monitor uop, chemistries. will likely need dialysis soon. -repeat labs at noon 3. inc lft's- likely shocked liver 4. eval for infection 5. check tsh and cortisol level discussed w/ pt, RN, and Dr. Wilder -pt seen via telemedicine w/ RN at bedside time spent 1 hr Consult Attestations Medical Necessity Statement: anuric renal failure Time Spent in Patient Care: Greater than 35 minutes (>than 50% of time spent in counselling and/or direct pt care on unit). Coding Level of Care Code Acute Pl[employer] Helper for Leonela Escobedo
[2019-12-05 08:02] LABS: Creatine Phosphokinase 1969 U/L (26-192)
[2019-12-05] MEDS: sodium chloride 0.9% 500 ML 999 ML IV (10:20)
[2019-12-05] MEDS: sennosides-docusate Tablet 2 TAB PO (10:21)
[2019-12-05] MEDS: pantoprazole DR 40 mg Tablet PO (10:22)
[2019-12-05] MEDS: gabapentin 100 mg Capsule PO (10:22)
[2019-12-05] MEDS: citalopram 20 mg Tablet PO (10:23)
[2019-12-05] MEDS: lactulose oral liq 20 gm/30 mL UDC 10 GM PO (10:25)
[2019-12-05 10:48] LABS: Glucose Point of Care 161 mg/dL (70-110)
--- NOTE | 2019-12-05 12:42 | P.PN_ITS ---
Subjective Subjective: Interval history: Lorraine reports her right abdomen still hurts some. She seems sleepy. Medications: Reviewed: Yes Vitals/I&O/Wt Last Vital Signs Temp 97.6 F 12/05/19 11:37 Pulse 88 12/05/19 11:37 Resp 20 H 12/05/19 11:37 BP 86/55 12/05/19 11:37 Pulse Ox 93 12/05/19 11:37 12/04/19 12/05/19 12/05/19 22:59 06:59 14:59 Intake Total 240 / 240 1000 / 1240 500 / 500 Output Total 175 / 175 Balance 240 / 240 825 / 1065 500 / 500 Weight last 48 hrs Weight 152.861 kg Physical Exam Narrative: EXAM NARRATIVE: General exam is an obese white female, sleepy Cardiovascular regular rate and rhythm, heart sounds distant Lungs clear no wheezing or crackles Abdomen is obese. Tenderness is noted on the right side. No rebound Extremities trace edema bilaterally. Cap refill brisk. No cyanosis or clubbing Urinary Catheter Management^: Lee: Cath Placed During This Visit: yes, but has since been removed by the nurse Reason for Continuing Indwelling Catheter: Acute Urinary Retention or Obstruction Urinary Catheter Date of Insertion: 12/05/19 Urinary Catheter Time of Insertion: 05:45 Date Urinary Catheter Removed: 12/05/19 Time Urinary Catheter Discontinued: 05:00 Data : 12/05/19 05:37 12/05/19 12:22 A&P Assessment and plan (1) Acute renal failure: Presumably from urinary retention, poor intake although no hydronephrosis seen on CT scan. Lisinopril, hydrochlorothiazide, Aldactone, naproxen could have also played a role. With hydration overnight she has not improved Nephrology has been consulted Repeat BMP this afternoon. If worsening dialysis will likely be done per nephrology I ordered a CK earlier this morning, it is elevated at 1969 indicating at least mild rhabdomyolysis I have made her n.p.o. in case dialysis catheter is needed Status: Acute Code(s): N17.9 - Acute kidney failure, unspecified (2) Urinary retention: Lee catheter Status: Acute Code(s): R33.9 - Retention of urine, unspecified (3) Pelvic mass: Will need follow-up with her gynecology oncology physician in [place] that she has been referred to. Status: Acute Code(s): R19.00 - Intra-abdominal and pelvic swelling, mass and lump, unspecified site Additional A&P Information Abdominal pain. Etiology uncertain. As this is right sided liver function tests been elevated or somewhat concerning. However, on review of her CAT scan it also is apparent she has a fair amount of stool on the right side of her abdomen. Lactulose was initiated the patient has yet to have a bowel movement Elevated liver function test. No obvious biliary etiology noted on CT scan. She has had a cholecystectomy. If this does not improve with hydration consider further evaluation with ultrasound which may not be useful or MRCP. Her liver function tests have been intermittently elevated in the past with the exception of bilirubin. Hepatitis panel has been ordered. Check acetaminophen level, INR. I suspect fatty liver will be the cause. history of asthma. Nebs as needed Morbid obesity Tobacco dependency, will be counseled on abstinence History of hypertension. Continue to hold medications secondary to lower blood pressures noted. No specific evidence of infection currently but continue to evaluate secondary to hypotension. At this point secondary to worsening we will add Zosyn secondary to abdominal complaints, elevated white blood cell count, increased LFTs and check procalcitonin level as well as blood cultures Type 2 diabetes. Sliding scale insulin Chronic pain Depression continue antidepressant GERD Heparin for DVT prophylaxis Full code Moving to ICU secondary to worsening renal failure, hypotension with possible need for pressors. Attestations Medical Necessity Statement*: Needs continued hospital stay, secondary to worsening renal failure, hypotension Coding Level of Care Code Acute News Cameraman for [facility] Fanny Diagnoses Acute renal failure N17.9 Urinary retention R33.9 Pelvic mass R19.00
[2019-12-05 12:44] LABS: Anion Gap 20.3 (5-19); Blood Urea Nitrogen 47 mg/dL (6-20); Calcium 8.8 mg/dL (8.5-10.5); Carbon Dioxide 22 mmol/L (22-29); Chloride 94 mmol/L (98-107); Glomerular Filtration Rate 7.2 mL/min (90-130); Glucose 161 mg/dL (65-115); Osmolality Calculated 274 mOsm/kg (285-295); Potassium 5.3 mmol/L (3.5-5.1); Sodium 131 mmol/L (136-145)
[2019-12-05 12:54] LABS: Thyroid Stimulating Hormone 1.46 uIU/mL (0.27-4.20)
[2019-12-05 13:16] LABS: Cortisol Random 15.12 mcg/dL (2.47-19.5)
[2019-12-05 13:19] LABS: Procalcitonin 0.65 ng/mL (0-0.5)
--- NOTE | 2019-12-05 13:28 | P.CONIM_ITS ---
Providers/Reason For Consult Consulting Physican/Specialty*: Frank Hernández MD Reason for Consult*: Acute kidney failure Attending Physician: Haroldo Wilder MD Primary Care Provider: Celina Ruiz DO History of Present Illness History of Present Illness CC: AM hurting HPI: Ms Lorraine Curry is a pleasant 34 year old female morbidly obese presenting with history of abdominal pain since September 2019 yet over the past couple of days her pain was getting worse particularly over the right lumbar region and being referred to the back, she does give history of cholecystectomy in the past and she was evaluated for a pelvic mass by gynecology service, patient presented to the emergency department and was found to have concern of urinary retention/oliguria and patient did not have much relief afterwards. General surgery was consulted for further evaluation due to patient's continued to have worsening picture without obvious explanation and I was asked to place a hemodialysis catheter on temporary basis to start dialysis due to her worsening kidney functions.And also to evaluate her for her right-sided abdominal pain patient recalls that this pain has been going on but it got worse over the past couple of days, nothing seems to make it better or worse, I did asked the patient if she does have any retained tampons and she denied using any of these. She also admits that this pain is not related to food. Review of Systems General: Reports: 10 or more systems reviewed and unremarkable except in HPI and below Meds/Allergies Home Medications and Allergies Home Medications Medication Instructions Recorded Confirmed Type atenolol 25 mg tablet 25 mg PO BID #180 tab 09/20/19 12/04/19 Rx cyclobenzaprine 10 mg tablet 10 mg PO TID #270 tab 09/20/19 12/04/19 Rx metformin 500 mg tablet 500 mg PO BID #180 tab 09/20/19 12/04/19 Rx citalopram 20 mg PO DAILY 10/19/19 12/04/19 History lisinopril-hydrochlorothiazide 1 tab PO DAILY 10/19/19 12/04/19 History spironolactone 25 mg PO DAILY 10/19/19 12/04/19 History dulaglutide 1.5 mg/0.5 mL 1.5 mg SUBCUT Q7D #2 ml 11/15/19 12/04/19 Rx subcutaneous pen injector omeprazole 40 mg capsule,delayed 40 mg PO DAILY #90 cap 11/16/19 12/04/19 Rx release albuterol sulfate 90 mcg/actuation 2 puff INHALATION Q6H PRN #8.5 gm 11/19/19 12/04/19 Rx aerosol inhaler tramadol 50 mg tablet 50 mg PO TID PRN 30 Days #90 tab 11/19/19 12/04/19 Rx gabapentin 300 mg capsule 300 mg PO TID #90 cap MDD 3 11/24/19 12/04/19 Rx naproxen [EC-Naprosyn] 500 mg PO BID PRN #20 tab 12/01/19 12/04/19 Rx multivitamin [Multiple Vitamins] 1 tab PO DAILY 12/04/19 12/04/19 History multivitamin with minerals 1 tab PO DAILY 12/04/19 12/04/19 History [Hair,Skin and Nails] Allergies Allergy/AdvReac Type Severity Reaction Status Date / Time No Known Allergies Allergy Verified 12/05/19 13:47 Current Medications Current Medications Generic Name Dose Route Start Last Admin Trade Name Freq PRN Reason Stop Dose Admin Citalopram Hydrobromide 20 mg 12/05/19 09:00 12/05/19 10:23 Celexa PO 20 mg DAILY MARY Administration Gabapentin 100 mg 12/05/19 09:00 12/05/19 10:22 Neurontin PO 100 mg TID MARY Administration Heparin Sodium (Beef Lung) 5,000 unit 12/04/19 13:15 12/05/19 02:32 Heparin SUBCUT 5,000 unit Q12H MARY Administration Sodium Chloride 1,000 mls @ 150 mls/hr 12/04/19 12:20 12/05/19 02:32 Sodium Chloride 0.9% IV 100 mls/hr .[id number] MARY Administration Insulin Aspart 0 unit 12/04/19 18:00 12/05/19 13:24 Novolog SUBCUT Not Given TIDWM MARY Protocol Insulin Aspart 0 unit 12/04/19 21:00 12/04/19 21:27 Novolog SUBCUT 3 unit BEDTIME MARY Administration Protocol Lactulose 10 gm 12/04/19 13:20 12/05/19 10:25 Constulose PO 10 gm BID MARY Administration Pantoprazole Sodium 40 mg 12/05/19 09:00 12/05/19 10:22 Protonix PO 40 mg DAILY MARY Administration Senna/Docusate Sodium 2 tab 12/04/19 18:00 12/05/19 10:21 Senna-S PO 2 tab BID MARY Administration PFSH Acute PFSH: Family History Father CAD (coronary artery disease) Diabetes Hypertension Family/Other Cancer Mother Diabetes Hypertension Social History Smoking and tobacco status: current every day smoker cigarettes Packs smoked per day: 1 Alcohol intake: never Substance/Drug Use: never Household members: spouse and family Marital status: Current occupational status: disabled History of recent travel: No Vitals/I&O/Wt Last Vital Signs Temp 97.6 F 12/05/19 11:37 Pulse 88 12/05/19 11:37 Resp 20 H 12/05/19 11:37 BP 86/55 12/05/19 11:37 Pulse Ox 93 12/05/19 11:37 12/04/19 12/05/19 12/05/19 22:59 06:59 14:59 Intake Total 240 / 240 1000 / 1240 500 / 500 Output Total 175 / 175 Balance 240 / 240 825 / 1065 500 / 500 Weight last 48 hrs Weight 337 lb Physical Exam Const: COMMON NORMALS: oriented x3 GENERAL APPEARANCE: cooperative, in distress and anxious NUTRITIONAL APPEARANCE: obese morbidly obese (BMI of 66) ORIENTATION/CONSCIOUSNESS: Yes awake, Yes oriented to person, Yes oriented to place and Yes oriented to time HENMT: COMMON NORMALS: normocephalic HEAD & SCALP: normocephalic Eye: COMMON NORMALS: PERRL and no scleral icterus PUPIL: Yes PERRL Lymph: LYMPHATIC: no lymphadenopathy noted Chest: COMMONS NORMALS: inspection of chest normal Resp: COMMON NORMALS: normal respiratory effort and clear to auscultation bilaterally AUSCULTATION: clear to auscultation bilaterally Cardio: COMMON NORMALS: S1 normal heart sound and S2 normal heart sound; negative for no murmurs HEART SOUNDS: S1 normal and S2 normal GI: COMMON NORMALS: soft to palpation; negative for no hepatosplenomegaly INSPECTION: Yes normal to inspection PALPATION: Yes soft, No firm, Yes tender (Right lumbar region), No guarding, No rigid and No no hepatosplenomegaly Neuro: COMMON NORMALS: oriented x3 SENSORIUM/ORIENTATION: Yes oriented to person, Yes oriented to place and Yes oriented to time Psych: COMMON NORMALS: mental status grossly normal Skin: COMMON NORMALS: no rashes or lesions noted GENERAL SKIN EXAM: no rashes or lesions noted Urinary Catheter Management^: Lee: Cath Placed During This Visit: yes, but has since been removed by the nurse Reason for Continuing Indwelling Catheter: Acute Urinary Retention or Obstruction Urinary Catheter Date of Insertion: 12/05/19 Urinary Catheter Time of Insertion: 05:45 Date Urinary Catheter Removed: 12/05/19 Time Urinary Catheter Discontinued: 05:00 A&P Assessment and plan (1) Acute renal failure: Plan of care; After thorough history physical examination and reviewing the chart, I counseled the patient and her for urgent placement of temporary hemodialysis catheter placement in the operating room, indications, risks including pneumothorax and injury of major vascular structures, benefits, and alternatives were all discussed with the patient and her spouse in the presence of her caring nurse, patient understands and is interested to proceed. Informed consent per chart. With regard to the abdominal pain after further history physical examination and reviewing the chart and images with my personal interpretation, I do not see an acute surgical disease from general surgery standpoint of view yet whenever I palpate on the patient's right lumbar side it creates tenderness I am concerned that this is related to her large pelvic mass that creates some pressure on it on palpation. Assurance and education All questions have been answered Status: Acute Code(s): N17.9 - Acute kidney failure, unspecified Consult Attestations Medical Necessity Statement: Medical necessity care is expected to cross 2 midnights Time Spent in Patient Care: 16 - 35 minutes (>than 50% of time spent in counselling and/or direct pt care on unit) . 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
[2019-12-05] MEDS: piperacillin-tazobactam 3.375 GM in sodium chloride 0.9% (plus) 50 ML IV (13:49)
[2019-12-05 13:51] LABS: ABG PCO2 55.4 mmHg (35-45); Alveolar-Arterial Oxygen Gradi 79.3 mmHg (5-10); Arterial Blood Gas Hematocrit 37.1 % (37-47); Blood Gas Allen Test Pos; Blood Gas Operator Identificat amh; Blood Gas Sample Site Radial, left; Blood Gas Sample Type Arterial; Carboxyhemoglobin 1.3 %THgb (0.4-20.1); HCO3 ABG 20.6 mmol/L (22-26); HGB O2 Sat 92.9 % (95-100); Ionized Calcium Level - ABG 1.1 mmol/L (1.1-1.4); Methemoglobin 1.2 % (0.4-1.5); Oxygen Device NC; Oxygen Saturation ABG 95.2; Potassium Level - ABG 5.3 mmol/L (3.5-5.0); Total Hemoglobin 12.1 g/dL (12-16)
[2019-12-05 13:52] LABS: ABG PH Result 7.18 (7.35-7.45)
--- NOTE | 2019-12-05 14:08 | P.ANESASSM_ITS ---
Documented by User: Eduardo Reid CRNA 12/05/19 14:12 Pre-Anesthetic Assessment Pre-Anesthetic Assessment: Height/Weight: Height 1.52 m Weight 152.861 kg Temp Pulse Resp BP Pulse Ox 97.6 F 88 20 H 86/55 93 12/05/19 11:37 12/05/19 11:37 12/05/19 11:37 12/05/19 11:37 12/05/19 11:37 Preop Diagnosis: Acute renal failure Proposed Procedure: Operation Date: 12/05/19 07:50 Proposed Procedures p Split Eric Catheter Insertion(Not Applicable) - Frank Hernández MD Was Beta Sarah taken within 24 hours: Yes Last intake: npo since midnight Social: Social History: Tobacco (1ppd) Exam: Pre-Anes Outpt Exam: alert, oriented x 3, clear to auscultation bilaterally and regular rate & rhythm Additional Exam Findings (including area of procedure): drowsy Airway: Submandibular: WNL Cervical ROM: WNL MP: 4 Additional com ments: endentulous History/ROS: No significant history except as noted and No significant complaints Pulmonary: Pulmonary: Sleep apnea and SOB CV/HEM: CV/HEM: HTN : Comments: arf GI: GI: GERD Metabolic: Metabolic: DM and Morbid obesity Musc/skel: Musc/skel: Lower Back Pain Neuropsych: Neuropsych: Depression Anesthetic Plan: ASA status: 4E Anesthesia: General Meds/Allergies Current Medications: Current Medications Generic Name Dose Route Start Last Admin Trade Name Freq PRN Reason Stop Dose Admin Citalopram Hydrobr omide 20 mg 12/05/19 09:00 12/05/19 10:23 Celexa PO 20 mg DAILY MARY Administration Gabapentin 100 mg 12/05/19 09:00 12/05/19 10:22 Neurontin PO 100 mg TID MARY Administration Heparin Sodium (Be ef Lung) 5,000 unit 12/04/19 13:15 12/05/19 02:32 Heparin SUBCUT 5,000 unit Q12H MARY Administration Sodium Chloride 1,000 mls @ 150 m ls/hr 12/04/19 12:20 12/05/19 02:32 Sodium Chloride 0.9% IV 100 mls/hr .[id number] MARY Administration Piperacillin Sod/T azobactam 50 mls @ 12.5 mls /hr 12/05/19 13:30 12/05/19 13:49 Sod 3.375 gm/ So dium Chloride IV 12.5 mls/hr Q12H MARY Administration Protocol Insulin Aspart 0 unit 12/04/19 18:00 12/05/19 13:24 Novolog SUBCUT Not Given TIDWM MARY Protocol Insulin Aspart 0 unit 12/04/19 21:00 12/04/19 21:27 Novolog SUBCUT 3 unit BEDTIME MARY Administration Protocol Lactulose 10 gm 12/04/19 13:20 12/05/19 10:25 Constulose PO 10 gm BID MARY Administration Pantoprazole Sodiu m 40 mg 12/05/19 09:00 12/05/19 10:22 Protonix PO 40 mg DAILY MARY Administration Senna/Docusate Sod ium 2 tab 12/04/19 18:00 12/05/19 10:21 Senna-S PO 2 tab BID MARY Administration PFSH Anesthesia PFSH: Family History Father CAD (coronary artery disease) Diabetes Hypertension Family/Other Cancer Mother Diabetes Hypertension Social History Smoking and tobacco status: current every day smoker cigarettes Packs smoked per day: 1 Alcohol intake: never Substance/Drug Use: never Household members: spouse and family Marital status: Current occupational status: disabled History of recent travel: No Data Anesthesia CBC & Chem 7: 12/05/19 05:37 12/05/19 12:22 Other Labs: Laboratory Results - last 48 hr 12/04/19 12/04/19 12/04/19 07:48 07:48 07:48 WBC 13.2 H RBC 4.41 Hgb 13.1 Hct 40.6 MCV 92.1 MCH 29.7 MCHC 32.3 RDW 13.4 Plt Count 303 MPV 11.1 H Neut % (Auto) 78.3 Lymph % (Auto) 12.5 [place] % (Auto) 6.1 Eos % (Auto) 1.9 Baso % (Auto) 0.3 Neut # (Auto) 10.4 H Lymph # (Auto) 1.7 [place] # (Auto) 0.8 Eos # (Auto) 0.3 Baso # (Auto) 0.0 Nucleated RBC % (auto) 0 Nucleated RBCs # 0.0 PT INR Specimen Type Sample Site ABG pH ABG pCO2 ABG pO2 ABG HCO3 ABG O2 Saturation ABG Base Excess [place] Test A-a O2 Gradient Hematocrit Hgb O2 Saturation Carboxyhemoglobin Methemoglobin Total Hemoglobin Ionized Calcium O2 Delivery Device O2 Liters/Min FiO2 Lobster Fisherman ID Sodium 132 L Potassium 4.8 Chloride 94 L Carbon Dioxide 25 Anion Gap 17.8 BUN 42 H Creatinine 3.2 H GFR Calculation 16.8 L Glucose 183 H POC Glucose Calculated Osmolality 276 L Calcium 9.1 Total Bilirubin 1.8 H AST 229 H ALT 363 H Alkaline Phosphatase 190 H Ammonia Creatine Kinase Total Protein 7.5 Albumin 4.0 Globulin 3.5 Lipase 31 Procalcitonin TSH HCG, Qual Negative Random Cortisol Urine Color Urine Appearance Urine pH Ur Specific [place] Urine Protein Urine Glucose (UA) Urine Ketones Urine Blood Urine Nitrate Urine Bilirubin Urine Urobilinogen Ur Leukocyte Esterase Urine RBC Urine WBC Ur Squamous Epith Cells Amorphous Sediment Urine Bacteria Hyaline Casts Salicylates Urine Opiates Screen Acetaminophen Ur Barbiturates Screen Ur Phencyclidine Scrn Ur Amphetamines Screen U Benzodiazepines Scrn Urine Cocaine Screen U Marijuana (THC) Screen Hepatitis A IgM Ab Hep Bs Antigen Hep Bs Antibody Hep B Core Total Ab Hepatitis C Antibody 12/04/19 12/04/19 12/04/19 07:48 07:48 07:48 WBC RBC Hgb Hct MCV MCH MCHC RDW Plt Count MPV Neut % (Auto) Lymph % (Auto) [place] % (Auto) Eos % (Auto) Baso % (Auto) Neut # (Auto) Lymph # (Auto) [place] # (Auto) Eos # (Auto) Baso # (Auto) Nucleated RBC % (auto) Nucleated RBCs # PT 13.00 INR 0.95 Specimen Type Sample Site ABG pH ABG pCO2 ABG pO2 ABG HCO3 ABG O2 Saturation ABG Base Excess [place] Test A-a O2 Gradient Hematocrit Hgb O2 Saturation Carboxyhemoglobin Methemoglobin Total Hemoglobin Ionized Calcium O2 Delivery Device O2 Liters/Min FiO2 Lobster Fisherman ID Sodium Potassium Chloride Carbon Dioxide Anion Gap BUN Creatinine GFR Calculation Glucose POC Glucose Calculated Osmolality Calcium Total Bilirubin AST ALT Alkaline Phosphatase Ammonia Creatine Kinase Total Protein Albumin Globulin Lipase Procalcitonin TSH HCG, Qual Random Cortisol Urine Color Urine Appearance Urine pH Ur Specific [place] Urine Protein Urine Glucose (UA) Urine Ketones Urine Blood Urine Nitrate Urine Bilirubin Urine Urobilinogen Ur Leukocyte Esterase Urine RBC Urine WBC Ur Squamous Epith Cells Amorphous Sediment Urine Bacteria Hyaline Casts Salicylates < 0.3 L Urine Opiates Screen Acetaminophen < 5.0 L Ur Barbiturates Screen Ur Phencyclidine Scrn Ur Amphetamines Screen U Benzodiazepines Scrn Urine Cocaine Screen U Marijuana (THC) Screen Hepatitis A IgM Ab Non-reactive Hep Bs Antigen Non-reactive Hep Bs Antibody 3027.0 H Hep B Core Total Ab Non-reactive Hepatitis C Antibody Non-reactive 12/04/19 12/04/19 12/04/19 08:45 08:45 12:49 WBC RBC Hgb Hct MCV MCH MCHC RDW Plt Count MPV Neut % (Auto) Lymph % (Auto) [place] % (Auto) Eos % (Auto) Baso % (Auto) Neut # (Auto) Lymph # (Auto) [place] # (Auto) Eos # (Auto) Baso # (Auto) Nucleated RBC % (auto) Nucleated RBCs # PT INR Specimen Type Sample Site ABG pH ABG pCO2 ABG pO2 ABG HCO3 ABG O2 Saturation ABG Base Excess [place] Test A-a O2 Gradient Hematocrit Hgb O2 Saturation Carboxyhemoglobin Methemoglobin Total Hemoglobin Ionized Calcium O2 Delivery Device O2 Liters/Min FiO2 L[employer] Fisherman ID Sodium Potassium Chloride Carbon Dioxide Anion Gap BUN Creatinine GFR Calculation Glucose POC Glucose 156 Calculated Osmolality Calcium Total Bilirubin AST ALT Alkaline Phosphatase Ammonia Creatine Kinase Total Protein Albumin Globulin Lipase Procalcitonin TSH HCG, Qual Random Cortisol Urine Color Yellow Urine Appearance Hazy A Urine pH 5 Ur Specific [place] 1.020 Urine Protein Trace Urine Glucose (UA) Norm Urine Ketones Negative Urine Blood Neg Urine Nitrate Negative Urine Bilirubin 1+ H Urine Urobilinogen 4 H Ur Leukocyte Esterase Negative Urine RBC None Urine WBC None Ur Squamous Epith Cells 0-4 H Amorphous Sediment 1+ Urine Bacteria 1+ H Hyaline Casts 0-4 H Salicylates Urine Opiates Screen Positive H Acetaminophen Ur Barbiturates Screen Negative Ur Phencyclidine Scrn Negative Ur Amphetamines Screen Negative U Benzodiazepines Scrn Negative Urine Cocaine Screen Negative U Marijuana (THC) Screen Negative Hepatitis A IgM Ab Hep Bs Antigen Hep Bs Antibody Hep B Core Total Ab Hepatitis C Antibody 12/04/19 12/04/19 12/04/19 15:00 17:29 20:31 WBC RBC Hgb Hct MCV MCH MCHC RDW Plt Count MPV Neut % (Auto) Lymph % (Auto) [place] % (Auto) Eos % (Auto) Baso % (Auto) Neut # (Auto) Lymph # (Auto) [place] # (Auto) Eos # (Auto) Baso # (Auto) Nucleated RBC % (auto) Nucleated RBCs # PT INR Specimen Type Sample Site ABG pH ABG pCO2 ABG pO2 ABG HCO3 ABG O2 Saturation ABG Base Excess [place] Test A-a O2 Gradient Hematocrit Hgb O2 Saturation Carboxyhemoglobin Methemoglobin Total Hemoglobin Ionized Calcium O2 Delivery Device O2 Liters/Min FiO2 L[employer] Fisherman ID Sodium Potassium Chloride Carbon Dioxide Anion Gap BUN Creatinine GFR Calculation Glucose POC Glucose 196 219 Calculated Osmolality Calcium Total Bilirubin AST ALT Alkaline Phosphatase Ammonia 37 Creatine Kinase Total Protein Albumin Globulin Lipase Procalcitonin TSH HCG, Qual Random Cortisol Urine Color Urine Appearance Urine pH Ur Specific [place] Urine Protein Urine Glucose (UA) Urine Ketones Urine Blood Urine Nitrate Urine Bilirubin Urine Urobilinogen Ur Leukocyte Esterase Urine RBC Urine WBC Ur Squamous Epith Cells Amorphous Sediment Urine Bacteria Hyaline Casts Salicylates Urine Opiates Screen Acetaminophen Ur Barbiturates Screen Ur Phencyclidine Scrn Ur Amphetamines Screen U Benzodiazepines Scrn Urine Cocaine Screen U Marijuana (THC) Screen Hepatitis A IgM Ab Hep Bs Antigen Hep Bs Antibody Hep B Core Total Ab Hepatitis C Antibody 12/05/19 12/05/19 12/05/19 05:37 05:37 05:37 WBC 12.9 H RBC 4.10 Hgb 11.8 Hct 38.1 MCV 92.9 MCH 28.8 MCHC 31.0 RDW 13.7 Plt Count 284 MPV 11.7 H Neut % (Auto) 73.9 Lymph % (Auto) 13.6 [place] % (Auto) 8.9 Eos % (Auto) 1.9 Baso % (Auto) 0.5 Neut # (Auto) 9.5 H Lymph # (Auto) 1.8 [place] # (Auto) 1.2 H Eos # (Auto) 0.3 Baso # (Auto) 0.1 Nucleated RBC % (auto) 0 Nucleated RBCs # 0.0 PT INR Specimen Type Sample Site ABG pH ABG pCO2 ABG pO2 ABG HCO3 ABG O2 Saturation ABG Base Excess [place] Test A-a O2 Gradient Hematocrit Hgb O2 Saturation Carboxyhemoglobin Methemoglobin Total Hemoglobin Ionized Calcium O2 Delivery Device O2 Liters/Min FiO2 Lobster Fisherman ID Sodium 132 L Potassium 5.0 Chloride 95 L Carbon Dioxide 22 Anion Gap 20.0 H BUN 44 H Creatinine 5.9 H* D GFR Calculation 8.3 L Glucose 155 H POC Glucose Calculated Osmolality 275 L Calcium 9.0 Total Bilirubin 1.8 H AST 240 H ALT 383 H Alkaline Phosphatase 206 H Ammonia Creatine Kinase 1969 H* Total Protein 7.1 Albumin 3.9 Globulin 3.2 Lipase Procalcitonin TSH HCG, Qual Random Cortisol Urine Color Urine Appearance Urine pH Ur Specific [place] Urine Protein Urine Glucose (UA) Urine Ketones Urine Blood Urine Nitrate Urine Bilirubin Urine Urobilinogen Ur Leukocyte Esterase Urine RBC Urine WBC Ur Squamous Epith Cells Amorphous Sediment Urine Bacteria Hyaline Casts Salicylates Urine Opiates Screen Acetaminophen Ur Barbiturates Screen Ur Phencyclidine Scrn Ur Amphetamines Screen U Benzodiazepines Scrn Urine Cocaine Screen U Marijuana (THC) Screen Hepatitis A IgM Ab Hep Bs Antigen Hep Bs Antibody Hep B Core Total Ab Hepatitis C Antibody 12/05/19 12/05/19 12/05/19 06:37 10:44 12:22 WBC RBC Hgb Hct MCV MCH MCHC RDW Plt Count MPV Neut % (Auto) Lymph % (Auto) [place] % (Auto) Eos % (Auto) Baso % (Auto) Neut # (Auto) Lymph # (Auto) [place] # (Auto) Eos # (Auto) Baso # (Auto) Nucleated RBC % (auto) Nucleated RBCs # PT INR Specimen Type Sample Site ABG pH ABG pCO2 ABG pO2 ABG HCO3 ABG O2 Saturation ABG Base Excess [place] Test A-a O2 Gradient Hematocrit Hgb O2 Saturation Carboxyhemoglobin Methemoglobin Total Hemoglobin Ionized Calcium O2 Delivery Device O2 Liters/Min FiO2 L[employer] Fisherman ID Sodium Potassium Chloride Carbon Dioxide Anion Gap BUN Creatinine GFR Calculation Glucose POC Glucose 151 161 Calculated Osmolality Calcium Total Bilirubin AST ALT Alkaline Phosphatase Ammonia Creatine Kinase Total Protein Albumin Globulin Lipase Procalcitonin TSH HCG, Qual Random Cortisol 15.12 Urine Color Urine Appearance Urine pH Ur Specific [place] Urine Protein Urine Glucose (UA) Urine Ketones Urine Blood Urine Nitrate Urine Bilirubin Urine Urobilinogen Ur Leukocyte Esterase Urine RBC Urine WBC Ur Squamous Epith Cells Amorphous Sediment Urine Bacteria Hyaline Casts Salicylates Urine Opiates Screen Acetaminophen Ur Barbiturates Screen Ur Phencyclidine Scrn Ur Amphetamines Screen U Benzodiazepines Scrn Urine Cocaine Screen U Marijuana (THC) Screen Hepatitis A IgM Ab Hep Bs Antigen Hep Bs Antibody Hep B Core Total Ab Hepatitis C Antibody 12/05/19 12/05/19 12/05/19 12:22 12:22 12:22 WBC RBC Hgb Hct MCV MCH MCHC RDW Plt Count MPV Neut % (Auto) Lymph % (Auto) [place] % (Auto) Eos % (Auto) Baso % (Auto) Neut # (Auto) Lymph # (Auto) [place] # (Auto) Eos # (Auto) Baso # (Auto) Nucleated RBC % (auto) Nucleated RBCs # PT INR Specimen Type Sample Site ABG pH ABG pCO2 ABG pO2 ABG HCO3 ABG O2 Saturation ABG Base Excess [place] Test A-a O2 Gradient Hematocrit Hgb O2 Saturation Carboxyhemoglobin Methemoglobin Total Hemoglobin Ionized Calcium O2 Delivery Device O2 Liters/Min FiO2 Lob[employer] Fisherman ID Sodium 131 L Potassium 5.3 H Chloride 94 L Carbon Dioxide 22 Anion Gap 20.3 H BUN 47 H Creatinine 6.7 H* GFR Calculation 7.2 L Glucose 161 H POC Glucose Calculated Osmolality 274 L Calcium 8.8 Total Bilirubin AST ALT Alkaline Phosphatase Ammonia Creatine Kinase Total Protein Albumin Globulin Lipase Procalcitonin 0.65 H TSH 1.46 HCG, Qual Random Cortisol Urine Color Urine Appearance Urine pH Ur Specific [place] Urine Protein Urine Glucose (UA) Urine Ketones Urine Blood Urine Nitrate Urine Bilirubin Urine Urobilinogen Ur Leukocyte Esterase Urine RBC Urine WBC Ur Squamous Epith Cells Amorphous Sediment Urine Bacteria Hyaline Casts Salicylates Urine Opiates Screen Acetaminophen Ur Barbiturates Screen Ur Phencyclidine Scrn Ur Amphetamines Screen U Benzodiazepines Scrn Urine Cocaine Screen U Marijuana (THC) Screen Hepatitis A IgM Ab Hep Bs Antigen Hep Bs Antibody Hep B Core Total Ab Hepatitis C Antibody 12/05/19 13:39 WBC RBC Hgb Hct MCV MCH MCHC RDW Plt Count MPV Neut % (Auto) Lymph % (Auto) [place] % (Auto) Eos % (Auto) Baso % (Auto) Neut # (Auto) Lymph # (Auto) [place] # (Auto) Eos # (Auto) Baso # (Auto) Nucleated RBC % (auto) Nucleated RBCs # PT INR Specimen Type Arterial Sample Site Radial, left ABG pH 7.18 L* ABG pCO2 55.4 H ABG pO2 80.0 ABG HCO3 20.6 L ABG O2 Saturation 95.2 ABG Base Excess -8.0 L [place] Test Pos A-a O2 Gradient 79.3 H Hematocrit 37.1 Hgb O2 Saturation 92.9 L Carboxyhemoglobin 1.3 Methemoglobin 1.2 Total Hemoglobin 12.1 Ionized Calcium 1.1 O2 Delivery Device [place] O2 Liters/Min 3.0 FiO2 32.0 Lobster Fisherman ID amh Sodium 135.0 Potassium 5.3 H Chloride Carbon Dioxide Anion Gap BUN Creatinine GFR Calculation Glucose 141.0 H POC Glucose Calculated Osmolality Calcium Total Bilirubin AST ALT Alkaline Phosphatase Ammonia Creatine Kinase Total Protein Albumin Globulin Lipase Procalcitonin TSH HCG, Qual Random Cortisol Urine Color Urine Appearance Urine pH Ur Specific [place] Urine Protein Urine Glucose (UA) Urine Ketones Urine Blood Urine Nitrate Urine Bilirubin Urine Urobilinogen Ur Leukocyte Esterase Urine RBC Urine WBC Ur Squamous Epith Cells Amorphous Sediment Urine Bacteria Hyaline Casts Salicylates Urine Opiates Screen Acetaminophen Ur Barbiturates Screen Ur Phencyclidine Scrn Ur Amphetamines Screen U Benzodiazepines Scrn Urine Cocaine Screen U Marijuana (THC) Screen Hepatitis A IgM Ab Hep Bs Antigen Hep Bs Antibody Hep B Core Total Ab Hepatitis C Antibody Cardiac Studies: No Data to Display Documented by User: Gui Evangelista MD 12/05/19 14:25 PFSH Anesthesia PFSH: Family History Father CAD (coronary artery disease) Diabetes Hypertension Family/Other Cancer Mother Diabetes Hypertension Social History Smoking and tobacco status: current every day smoker cigarettes Packs smoked per day: 1 Alcohol intake: never Substance/Drug Use: never Household members: spouse and family Marital status: Current occupational status: disabled History of recent travel: No Data Anesthesia CBC & Chem 7: 12/05/19 05:37 12/05/19 12:22 Cardiac Studies: No Data to Display
--- NOTE | 2019-12-05 14:18 | PC.NURSE ---
Patient to surgery at this time.
--- NOTE | 2019-12-05 14:27 | SUR.OPER ---
1427 dark red fluid in catheter drainage bag. Dr. Edgar martinez in room.
--- NOTE | 2019-12-05 14:28 | SUR.PREOP ---
1420 PATIENT TO OPS AT THIS TIME FOR MED SURG. PATIENT RR EVEN AND UNLABORED. PATIENT A/OX3. PATIENT NOTED TO BE DROWSY, EASILY AROUSED WITH VERBAL STIMULI.
--- NOTE | 2019-12-05 14:29 | SUR.PREOP ---
1426 PATIENT TO OR AT THIS TIME. OR NURSE AWARE OF BLOOD PRESSURE.
--- NOTE | 2019-12-05 14:32 | SC_ITS ---
WS: [id number] C-ARM RADIOGRAPHS CHEST; 2 IMAGES HISTORY: split tereza COMPARISON: 12/05/2019 Interval insertion of a RIGHT central line. SC/C-arm FL for CVA [id number] IMPRESSION: Intraoperative imaging during insertion of a RIGHT central line.
[2019-12-05] MEDS: heparin 5,000 unit/mL INJ 1 mL 5000 UNIT IV (15:00)
[2019-12-05] MEDS: heparin,porcine 1,000 unit/mL INJ 1 mL 1000 UNIT INJECTION (15:00)
[2019-12-05] MEDS: lidocaine 2% INJ 20 mL INJECTION (15:00)
--- NOTE | 2019-12-05 15:13 | P.OP_ITS ---
Operative Report Date of procedure: December 05, 2019 Pre-op Diagnosis: Acute renal failure Post-op diagnosis: same Procedure Done: Ultrasound-guided right internal jugular vein temporary hemodialysis catheter placement 12 [place] 16 cm in length. Interpretation of the intraoperative ultrasound and fluoroscopic images was done by me through the whole entire procedure Implants: Right internal jugular vein temporary hemodialysis catheter placement 12 [place] 16 cm in length. Surgeon: Frank Hernández Manager [employer]ing: Supervisor Picking Crew Nahun Sharma nurse Quinn Anesthesia: General (ZOEY Clark and Dr. Evangelista) Estimated blood loss (mL): 5 Complications: No immediate complication Condition: critical Disposition: ICU Brief History: Ms Lorraine Curry is a pleasant 34 year old female morbidly obese presenting with history of abdominal pain since September 2019 yet over the past couple of days her pain was getting worse particularly over the right lumbar region and being referred to the back, she does give history of cholecystectomy in the past and she was evaluated for a pelvic mass by gynecology service, patient presented to the emergency department and was found to have concern of urinary retention/oliguria and patient did not have much relief afterwards. General surgery was consulted for further evaluation due to patient's continued to have worsening picture without obvious explanation and I was asked to place a hemodialysis catheter on temporary basis to start dialysis due to her worsening kidney functions.And also to evaluate her for her right-sided abdominal pain patient recalls that this pain has been going on but it got worse over the past couple of days, nothing seems to make it better or worse, I did asked the patient if she does have any retained tampons and she denied using any of these. She also admits that this pain is not related to food. After thorough history physical examination and reviewing the chart and images with my personal interpretation, I counseled the patient and her spouse to proceed with temporary hemodialysis catheter, patient did agree to proceed and informed consent per chart. Procedure: Patient was identified in the PACU and taken to the operative room and placed in supine position,both arms were tucked,Time-out was done verifying the patient's name/date of /planned procedure and destination after the procedure, all were in agreement.SCDs confirmed to be functioning, patient was already on therapeutic antibiotics,and beta claribel protocol was confirmed, appropriate positioning of the patient was done by me and the OR team. Patient was intubated by anesthesia Medications were reviewed to assess for anticoagulant usage. Risks and benefits and prevention of central line associated blood stream infection (CLABSI) were discussed with the patient/CPOA, and a consent was obtained. Monitors were in place and monitored throughout the procedure. All necessary supplies were available prior to start. Hand hygiene was completed prior to starting. Maximum barrier technique was utilized including a sterile gown, sterile gloves with a hat and mask. Site was was prepped with [chlorhexidine] and a full body drape was placed. 5 mL of 2% lidocaine was injected into the skin with a 25 gauge needle. Prep& drape was done under the usual sterile technique of upper chest right and left as well as the neck both sides, lidocaine 2% was injected at the site of the stick, started by right internal jugular vein stick under ultrasound guidance that showed no intraluminal thrombosis and interpretation was done by me , venous blood was retrieved,a guidewire was then threaded and under the guidance of fluoroscopy position was confirmed to be in the IVC, there was no PVC changes, at that point the guidewire was secured to the drapes with a hemostat and the needle was taken out. A small js was created with 11 blade knife to allow delivery of the dilators and the catheter,at that point under fluoroscopy,serial dilators were done that come in the in the KIT, followed by that the 12 [place] 16 cm long temporary dialysis catheter was introduced onto the guidewire the wire was retrieved and I Was able to flush both ports arterial and venous liberally the catheter was then secured in place with 3/0 nylon sutures to the skin. The whole procedure was done under fluoroscopy , the position maintained to be in theSVC/Rt atrium that was confirmed with fluoroscopy, and the fluoroscopy interpretation was done by me throughout the entire procedure. Patient tolerated the procedure well was taken to the ICU to start dialysis Count was correct at the end of the procedure I was present for the whole entire procedure Position of the catheter was checked with a postoperative chest x-ray and it was in good position without evidence of pneumothorax
--- NOTE | 2019-12-05 15:36 | XRR_ITS ---
PROCEDURE INFORMATION: Exam: XR Chest, 1 View Exam date and time: 12/05/2019 3:37 PM Age: 34 years old Clinical indication: Device placement; Other: Post surgery; Additional info: Post RT ij dialysis cathter placement TECHNIQUE: Imaging protocol: XR of the chest Views: 1 view. COMPARISON: CR XR chest 1V portable [id number] 12/01/2019 1:07 AM FINDINGS: Lungs: A parenchymal density is seen in the right mid lung field which may reflect atelectasis. Low lung volumes are seen. Pleural space: Unremarkable. No pleural effusion. No pneumothorax. Heart/Mediastinum: Unremarkable. No cardiomegaly. Bones/joints: Unremarkable. Endotracheal tube is in place the tip is 2.2 cm above the jen. There is internal jugular line in place extending into the SVC XR/XR chest 1V portable [id number] IMPRESSION: 1. Low lung volumes are seen. 2. Atelectasis right mid lung 3. Right jugular line extends to the SVC. 4. Endotracheal tube is in place as described.
[2019-12-05 15:41] LABS: Hepatitis C Virus Antibody Non-Reactive (Nonreactive)
[2019-12-05 15:43] LABS: Hepatitis B Surface Antigen. Non-Reactive (Nonreactive)
[2019-12-05] MEDS: propofol 1,000 MG/100 ML INJ 9.2 MG (16:10)
[2019-12-05] MEDS: ipratropium-albuterol 3 mL Neb INHALATION ×2 (16:20→20:46)
[2019-12-05 16:58] LABS: Glucose Point of Care 177 mg/dL (70-110)
[2019-12-05 18:09] LABS: ABG PCO2 53.4 mmHg (35-45); ABG PH Result 7.23 (7.35-7.45); Alveolar-Arterial Oxygen Gradi 558.1 mmHg (5-10); Arterial Blood Gas Hematocrit 35.7 % (37-47); Base Excess ABG -5.7 mmol/L (-2.0-2.0); Blood Gas Allen Test Pos; Blood Gas Sample Site Radial, right; Blood Gas Sample Type Arterial; Blood Gas Tidal Volume 0.45; Carboxyhemoglobin 0.9 %THgb (0.4-20.1); HCO3 ABG 22.2 mmol/L (22-26); HGB O2 Sat 93.4 % (95-100); Ionized Calcium Level - ABG 1.1 mmol/L (1.1-1.4); Methemoglobin 1.3 % (0.4-1.5); Oxygen Device VENT; Oxygen Saturation ABG 95.5; PO2 ABG 78.7 mmHg (80.0-100.0); Potassium Level - ABG 3.9 mmol/L (3.5-5.0); Total Hemoglobin 11.7 g/dL (12-16)
[2019-12-05] MEDS: propofol 1,000 MG/100 ML INJ 45.9 MG IV ×3 (18:18→22:29)
[2019-12-05] MEDS: fentaNYL 50 mcg/mL INJ 2mL 25 MCG IVP (20:25)
--- NOTE | 2019-12-05 22:19 | PC.NURSE ---
9185 Myself and two RN's with respiratory at bedside, pulled patient up and removed extra linens underneath from patient. When patient rolled to left side, urinary cath came out as balloon was not inflated. Replaced urine cath and collected new urine for lab. Urine was brown in color. Also placed 2 new peripheral IV's.
[2019-12-05 23:29] LABS: Potassium, Radom Urine 39 mmol/L; Urine Random Sodium 29 mmol/L
[2019-12-05 23:30] LABS: Urine Random Chloride 15 mmol/L
[2019-12-06] VITALS (43 sets, daily range): BP systolic 101–139; BP diastolic 56–91; PULSE 100–117; RESP 15–21; TEMP 36.8–37.6; O2SAT 91–99
[2019-12-06] MEDS: heparin 5,000 unit/mL INJ 1 mL 5000 UNIT SUBCUT ×2 (00:30→13:27)
[2019-12-06] MEDS: propofol 1,000 MG/100 ML INJ 45.9 MG IV ×11 (00:30→23:41)
[2019-12-06] MEDS: ipratropium-albuterol 3 mL Neb INHALATION ×4 (03:25→20:19)
[2019-12-06] MEDS: fentaNYL 50 mcg/mL INJ 2mL 25 MCG IVP ×3 (03:55→22:03)
[2019-12-06] MEDS: HYDROmorphone 1 mg/mL INJ 1 mL 2 MG IVP (05:23)
[2019-12-06 05:25] LABS: Basophils % 0.2 %; Eosinophils # 0.1 10^3/uL (0.0-0.8); Eosinophils % 0.6 %; Hematocrit 34.5 % (37.0-47.0); Hemoglobin 10.9 g/dL (11.5-15.3); Lymphocytes # 1.4 10^3/uL (0.8-4.8); Lymphocytes % 8.8 %; Mean Corpuscular HGB Conc 31.6 g/dL (30.0-36.0); Mean Corpuscular Hemoglobin 28.9 pg (28.0-34.0); Mean Corpuscular Volume 91.5 fL (81-99); Mean Platelet Volume 11.8 fL (7.4-10.4); Monocytes % 6.6 %; Neutrophils # 12.9 10^3/uL (1.8-7.7); Nucleated Red Blood Cells % 0 %; Platelet Count 229 10^3/cmm (130-400); Red Blood Count 3.77 10^6/uL (4.1-5.3); Red Cell Distribution Width 13.7 % (12.1-15.1); White Blood Count 15.5 10^3/uL (4.0-10.0)
[2019-12-06] MEDS: OLANZapine 10 mg VIAL IM ×2 (05:28→22:42)
[2019-12-06 05:53] LABS: Alanine Aminotransferase 306 U/L (0-33); Albumin Level 3.7 g/dL (3.5-5.2); Alkaline Phosphatase 214 IU/L (35-105); Anion Gap 19.4 (5-19); Aspartate Amino Transferase 131 U/L (0-32); Blood Urea Nitrogen 31 mg/dL (6-20); Calcium 8.8 mg/dL (8.5-10.5); Carbon Dioxide 23 mmol/L (22-29); Chloride 97 mmol/L (98-107); Globulin 2.4 g/dL (1.3-4.6); Glucose 163 mg/dL (65-115); Magnesium 2.1 mg/dL (1.7-2.3); Osmolality Calculated 281 mOsm/kg (285-295); Phosphorus 5.9 mg/dL (2.5-4.5); Potassium 4.4 mmol/L (3.5-5.1); Sodium 135 mmol/L (136-145); Total Bilirubin 1.9 mg/dL (0.15-1.2); Total Protein 6.1 g/dL (6.6-8.7)
[2019-12-06 06:19] LABS: Creatine Phosphokinase 1975 U/L (26-192)
--- NOTE | 2019-12-06 07:00 | XRR_ITS ---
PROCEDURE INFORMATION: Exam: XR Chest, 1 View Exam date and time: 12/06/2019 5:40 AM Age: 34 years old Clinical indication: Dyspnea; Additional info: Resp failure TECHNIQUE: Imaging protocol: XR of the chest Views: 1 view. COMPARISON: CR (CHEST, ) 12/05/2019 3:54 PM FINDINGS: Tubes, catheters and devices: The endotracheal tube is above the level of the jen. Central venous catheter via the right jugular approach with the tip projecting over the superior vena cava. nasogastric tube extends below the diaphragm although the location of the tip not identified as it is outside of the [id number]. Lungs: Mild airspace disease within the left lung base. Infiltrate and/or atelectasis. Pleural space: Unremarkable. No pleural effusion. No pneumothorax. Heart/Mediastinum: Unremarkable. No cardiomegaly. Bones/joints: Unremarkable. XR/XR chest 1V portable [id number] IMPRESSION: Mild airspace disease within the left lung base. Infiltrate and/or atelectasis.
[2019-12-06 07:06] LABS: Glucose Point of Care 172 mg/dL (70-110)
[2019-12-06] MEDS: FUROsemide 100 MG in sodium chloride 0.9% 40 ML IV (07:36)
[2019-12-06] MEDS: FUROsemide 10 mg/mL SDV 10mL 60 MG IVP (07:36)
[2019-12-06 07:38] LABS: Glucose Point of Care 169 mg/dL (70-110)
--- NOTE | 2019-12-06 08:15 | PM.PN ---
Subjective Subjective: Interval history: now intubated. s/p HD yesterday. now w/ uop w/ joya moved. off of prssors. she is sedated and intubated. could not get a ROS Medications: Reviewed: Yes Medication Review Details: Current Medications Albuterol Sulfate (Ventolin) 2 puff INHALATION Q4H.RESPIRATORY PRN PRN Reason: SHORTNESS OF BREATH Albuterol/Ipratropium (Duoneb) 3 ml INHALATION Q6H.RESPIRATORY MARY Last Admin: 12/06/19 03:25 Dose: 3 ml Documented by: Citalopram Hydrobromide (Celexa) 20 mg PO DAILY [facility] Last Admin: 12/05/19 10:23 Dose: 20 mg Documented by: Cyclobenzaprine HCl (Flexeril) 5 mg PO TID PRN PRN Reason: MUSCLE SPASMS Dextrose (D50w) 25 ml IVP ONCE PRN; Protocol PRN Reason: hypoglycemia protocol Dextrose (D50w) 50 ml IVP PRN PRN; Protocol PRN Reason: hypoglycemia protocol Fentanyl (Sublimaze) 25 mcg IVP Q2H PRN PRN Reason: SEVERE PAIN Last Admin: 12/06/19 07:51 Dose: 25 mcg Documented by: Gabapentin (Neurontin) 100 mg PO TID MARY Last Admin: 12/05/19 10:22 Dose: 100 mg Documented by: Glucagon (Glucagen) 1 mg IM ONCE PRN; Protocol PRN Reason: Adult Acute Hypoglycemia Prot. Heparin Sodium (Beef Lung) (Heparin) 5,000 unit SUBCUT Q12H [facility] Last Admin: 12/06/19 00:30 Dose: 5,000 unit Documented by: Hydromorphone HCl (Dilaudid Inj) 2 mg IVP Q2H PRN PRN Reason: AGITATION Last Admin: 12/06/19 05:23 Dose: 2 mg Documented by: Dextrose (D5w) 500 mls @ 100 mls/hr IV ONCE PRN; Protocol PRN Reason: Adult Acute Hypoglycemia Prot Piperacillin Sod/Tazobactam (Sod 3.375 gm/ Sodium Chloride) 50 mls @ 12.5 mls/hr IV Q12H [facility]; Protocol Last Infusion: 12/05/19 14:30 Dose: Infused Documented by: Norepinephrine Bitartrate 4 mg (/ Dextrose) 254 mls @ 0 mls/hr IV .Q0M [facility]; Protocol Last Titration: 12/05/19 21:00 Dose: 0 mcg/min, 0 mls/hr Documented by: Propofol (Diprivan) 1,000 mg in 100 mls @ 0 mls/hr IV .Q0M MARY; Protocol Last Admin: 12/06/19 07:35 Dose: 50 mcg/kg/min, 45.9 mls/hr Documented by: Furosemide 100 mg/ Sodium (Chloride) 50 mls @ 2.5 mls/hr IV .Q20H MARY; Protocol Last Admin: 12/06/19 07:36 Dose: 5 mg/hr, 2.5 mls/hr Documented by: Insulin Aspart (Novolog) 0 unit SUBCUT TIDWM MARY; Protocol Last Admin: 12/05/19 13:24 Dose: Not Given Documented by: Insulin Aspart (Novolog) 0 unit SUBCUT BEDTIME MARY; Protocol Last Admin: 12/05/19 21:08 Dose: 2 unit Documented by: Lactulose (Constulose) 10 gm PO BID [facility] Last Admin: 12/05/19 10:25 Dose: 10 gm Documented by: Naloxone HCl (Narcan) 0.1 mg IVP Q2M PRN PRN Reason: OPIATERV Nicotine (Nicoderm 21 Mg Patch) 1 patch TRANSDERMA DAILY PRN PRN Reason: WITHDRAWAL Ondansetron HCl (Zofran) 4 mg IVP Q4H PRN PRN Reason: vomiting, or N/V if npo Oxycodone HCl (Oxycodone Ir) 5 mg PO Q6H PRN PRN Reason: SEVERE PAIN Pantoprazole Sodium (Protonix) 40 mg PO DAILY [facility] Last Admin: 12/05/19 10:22 Dose: 40 mg Documented by: Senna/Docusate Sodium (Senna-S) 2 tab PO BID [facility] Last Admin: 12/05/19 10:21 Dose: 2 tab Documented by: Vitals/I&O/Wt Last Vital Signs Temp 99.6 F 12/06/19 04:00 Pulse 105 H 12/06/19 06:00 Resp 15 12/06/19 07:51 BP 118/68 12/06/19 06:00 Pulse Ox 99 12/06/19 07:51 12/05/19 12/06/19 12/06/19 22:59 06:59 14:59 Intake Total 231.535 / 781.535 292.565 / 1074.100 Output Total 75 / 75 850 / 925 Balance 156.535 / 706.535 -557.435 / 149.100 Physical Exam Narrative: EXAM NARRATIVE: morbidly obese female intubated on 75% fio2 heent- nc/at, eomi neck- obese lung b/l crackles and ronchi heart reg, +JORDAN abd soft, nt, nd, +BS ext + b/l edema + joya neuro- sedated Urinary Catheter Management^: Joya: Cath Placed During This Visit: yes, but has since been removed by the nurse Reason for Continuing Indwelling Catheter: Accurate Measurement of Urinary Output in Critically Ill Patients Urinary Catheter Date of Insertion: 12/05/19 Urinary Catheter Time of Insertion: 05:45 Date Urinary Catheter Removed: 12/05/19 Time Urinary Catheter Discontinued: 05:00 Data : 12/06/19 04:46 12/06/19 04:46 Other Labs: Laboratory Results - last 24 hr 12/05/19 12/05/19 12/05/19 10:44 12:22 12:22 WBC RBC Hgb Hct MCV MCH MCHC RDW Plt Count MPV Neut % (Auto) Lymph % (Auto) Harrison % (Auto) Eos % (Auto) Baso % (Auto) Neut # (Auto) Lymph # (Auto) Harrison # (Auto) Eos # (Auto) Baso # (Auto) Nucleated RBC % (auto) Nucleated RBCs # Specimen Type Sample Site ABG pH ABG pCO2 ABG pO2 ABG HCO3 ABG O2 Saturation ABG Base Excess Figueroa Test A-a O2 Gradient Hematocrit Hgb O2 Saturation Carboxyhemoglobin Methemoglobin Total Hemoglobin Ionized Calcium Respiration Rate O2 Delivery Device O2 Liters/Min FiO2 Tidal Volume PEEP Engine Turner ID Sodium 131 L Potassium 5.3 H Chloride 94 L Carbon Dioxide 22 Anion Gap 20.3 H BUN 47 H Creatinine 6.7 H* GFR Calculation 7.2 L Glucose 161 H POC Glucose 161 Calculated Osmolality 274 L Calcium 8.8 Phosphorus Magnesium Total Bilirubin AST ALT Alkaline Phosphatase Creatine Kinase Total Protein Albumin Globulin Procalcitonin TSH Random Cortisol 15.12 Ur Random Sodium Ur Random Potassium Ur Random Chloride Hep Bs Antigen Hep Bs Antibody Hepatitis C Antibody 12/05/19 12/05/19 12/05/19 12:22 12:22 12:23 WBC RBC Hgb Hct MCV MCH MCHC RDW Plt Count MPV Neut % (Auto) Lymph % (Auto) Harrison % (Auto) Eos % (Auto) Baso % (Auto) Neut # (Auto) Lymph # (Auto) Harrison # (Auto) Eos # (Auto) Baso # (Auto) Nucleated RBC % (auto) Nucleated RBCs # Specimen Type Sample Site ABG pH ABG pCO2 ABG pO2 ABG HCO3 ABG O2 Saturation ABG Base Excess Figueroa Test A-a O2 Gradient Hematocrit Hgb O2 Saturation Carboxyhemoglobin Methemoglobin Total Hemoglobin Ionized Calcium Respiration Rate O2 Delivery Device O2 Liters/Min FiO2 Tidal Volume PEEP Engine Turner ID Sodium Potassium Chloride Carbon Dioxide Anion Gap BUN Creatinine GFR Calculation Glucose POC Glucose Calculated Osmolality Calcium Phosphorus Magnesium Total Bilirubin AST ALT Alkaline Phosphatase Creatine Kinase Total Protein Albumin Globulin Procalcitonin 0.65 H TSH 1.46 Random Cortisol Ur Random Sodium Ur Random Potassium Ur Random Chloride Hep Bs Antigen Non-reactive Hep Bs Antibody 3114.0 H Hepatitis C Antibody 12/05/19 12/05/19 12/05/19 12:23 13:39 16:54 WBC RBC Hgb Hct MCV MCH MCHC RDW Plt Count MPV Neut % (Auto) Lymph % (Auto) Harrison % (Auto) Eos % (Auto) Baso % (Auto) Neut # (Auto) Lymph # (Auto) Harrison # (Auto) Eos # (Auto) Baso # (Auto) Nucleated RBC % (auto) Nucleated RBCs # Specimen Type Arterial Sample Site Radial, left ABG pH 7.18 L* ABG pCO2 55.4 H ABG pO2 80.0 ABG HCO3 20.6 L ABG O2 Saturation 95.2 ABG Base Excess -8.0 L Figueroa Test Pos A-a O2 Gradient 79.3 H Hematocrit 37.1 Hgb O2 Saturation 92.9 L Carboxyhemoglobin 1.3 Methemoglobin 1.2 Total Hemoglobin 12.1 Ionized Calcium 1.1 Respiration Rate O2 Delivery Device Nc O2 Liters/Min 3.0 FiO2 32.0 Tidal Volume PEEP Engine Turner ID amh Sodium 135.0 Potassium 5.3 H Chloride Carbon Dioxide Anion Gap BUN Creatinine GFR Calculation Glucose 141.0 H POC Glucose 177 Calculated Osmolality Calcium Phosphorus Magnesium Total Bilirubin AST ALT Alkaline Phosphatase Creatine Kinase Total Protein Albumin Globulin Procalcitonin TSH Random Cortisol Ur Random Sodium Ur Random Potassium Ur Random Chloride Hep Bs Antigen Hep Bs Antibody Hepatitis C Antibody Non-reactive 12/05/19 12/05/19 12/05/19 17:50 17:58 21:08 WBC RBC Hgb Hct MCV MCH MCHC RDW Plt Count MPV Neut % (Auto) Lymph % (Auto) Harrison % (Auto) Eos % (Auto) Baso % (Auto) Neut # (Auto) Lymph # (Auto) Harrison # (Auto) Eos # (Auto) Baso # (Auto) Nucleated RBC % (auto) Nucleated RBCs # Specimen Type Arterial Sample Site Radial, right ABG pH 7.23 L ABG pCO2 53.4 H ABG pO2 78.7 L ABG HCO3 22.2 ABG O2 Saturation 95.5 ABG Base Excess -5.7 L Figueroa Test Pos A-a O2 Gradient 558.1 H Hematocrit 35.7 L Hgb O2 Saturation 93.4 L Carboxyhemoglobin 0.9 Methemoglobin 1.3 Total Hemoglobin 11.7 L Ionized Calcium 1.1 Respiration Rate 14.0 O2 Delivery Device Vent O2 Liters/Min FiO2 100.0 Tidal Volume 0.45 PEEP 10.0 Engine Turner ID gd Sodium 137.0 Potassium 3.9 Chloride Carbon Dioxide Anion Gap BUN Creatinine GFR Calculation Glucose 146.0 H POC Glucose 172 Calculated Osmolality Calcium Phosphorus Magnesium Total Bilirubin AST ALT Alkaline Phosphatase Creatine Kinase Total Protein Albumin Globulin Procalcitonin TSH Random Cortisol Ur Random Sodium Cancelled Ur Random Potassium Cancelled Ur Random Chloride Cancelled Hep Bs Antigen Hep Bs Antibody Hepatitis C Antibody 12/05/19 12/06/19 12/06/19 21:59 04:46 04:46 WBC 15.5 H RBC 3.77 L Hgb 10.9 L Hct 34.5 L MCV 91.5 MCH 28.9 MCHC 31.6 RDW 13.7 Plt Count 229 MPV 11.8 H Neut % (Auto) 83.0 Lymph % (Auto) 8.8 Harrison % (Auto) 6.6 Eos % (Auto) 0.6 Baso % (Auto) 0.2 Neut # (Auto) 12.9 H Lymph # (Auto) 1.4 Harrison # (Auto) 1.0 H Eos # (Auto) 0.1 Baso # (Auto) 0.0 Nucleated RBC % (auto) 0 Nucleated RBCs # 0.0 Specimen Type Sample Site ABG pH ABG pCO2 ABG pO2 ABG HCO3 ABG O2 Saturation ABG Base Excess Figueroa Test A-a O2 Gradient Hematocrit Hgb O2 Saturation Carboxyhemoglobin Methemoglobin Total Hemoglobin Ionized Calcium Respiration Rate O2 Delivery Device O2 Liters/Min FiO2 Tidal Volume PEEP Engine Turner ID Sodium 135 L Potassium 4.4 Chloride 97 L Carbon Dioxide 23 Anion Gap 19.4 H BUN 31 H Creatinine 4.0 H GFR Calculation 13.0 L Glucose 163 H POC Glucose Calculated Osmolality 281 L Calcium 8.8 Phosphorus 5.9 H Magnesium 2.1 Total Bilirubin 1.9 H AST 131 H ALT 306 H Alkaline Phosphatase 214 H Creatine Kinase Total Protein 6.1 L Albumin 3.7 Globulin 2.4 Procalcitonin TSH Random Cortisol Ur Random Sodium 29 Ur Random Potassium 39 Ur Random Chloride 15 Hep Bs Antigen Hep Bs Antibody Hepatitis C Antibody 12/06/19 12/06/19 04:46 07:34 WBC RBC Hgb Hct MCV MCH MCHC RDW Plt Count MPV Neut % (Auto) Lymph % (Auto) Harrison % (Auto) Eos % (Auto) Baso % (Auto) Neut # (Auto) Lymph # (Auto) Harrison # (Auto) Eos # (Auto) Baso # (Auto) Nucleated RBC % (auto) Nucleated RBCs # Specimen Type Sample Site ABG pH ABG pCO2 ABG pO2 ABG HCO3 ABG O2 Saturation ABG Base Excess Figueroa Test A-a O2 Gradient Hematocrit Hgb O2 Saturation Carboxyhemoglobin Methemoglobin Total Hemoglobin Ionized Calcium Respiration Rate O2 Delivery Device O2 Liters/Min FiO2 Tidal Volume PEEP Engine Turner ID Sodium Potassium Chloride Carbon Dioxide Anion Gap BUN Creatinine GFR Calculation Glucose POC Glucose 169 Calculated Osmolality Calcium Phosphorus Magnesium Total Bilirubin AST ALT Alkaline Phosphatase Creatine Kinase 1975 H* Total Protein Albumin Globulin Procalcitonin TSH Random Cortisol Ur Random Sodium Ur Random Potassium Ur Random Chloride Hep Bs Antigen Hep Bs Antibody Hepatitis C Antibody Micro: Microbiology 12/06/19 04:46 Blood Culture - Preliminary Blood SPECIMEN COLLECTED 12/06/19 04:50 Blood Culture - Preliminary Blood SPECIMEN COLLECTED A&P Additional A&P Information 34 yr old female morbid obesity. 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 REJI- likely ATN from nsaid, leonidas-i, thiazide, and aldactone. BP remains low. no hydronephrosis on imaging -cr giuliana from 0.8 on 12/01/19 to 3.2 on 12/04/19 to 5.9 to 6.7- had HD yesterday and intubated -k and cr improving -starting to diurese -cxr w/ pna and chf -give lasix drip -repeat abg check chem 7 at 12 pm and decide on further dialysis -u/a noted -ck noted- not high enough to cause REJI 3. inc lft's- likely shocked liver 4.sepsis- renal dose abx as per hospitalist 5. check tsh and cortisol level discussed w/ pt, RN, -pt seen via telemedicine w/ RN at bedside time spent 30 min Attestations Medical Necessity Statement*: reji, sepsis, obesity Time Spent in Patient Care: 16 - 35 minutes Critical Care Time: Critical Care Time (min): 30 Coding Level of Care Code Acute [employer] Consultant for g Fanny
[2019-12-06] MEDS: lactulose oral liq 20 gm/30 mL UDC 10 GM PO ×2 (08:34→17:31)
[2019-12-06 08:53] LABS: ABG PCO2 46.2 mmHg (35-45); ABG PH Result 7.33 (7.35-7.45); Arterial Blood Gas Hematocrit 34.7 % (37-47); Base Excess ABG -1.7 mmol/L (-2.0-2.0); Blood Gas Sample Site Brachial, right; Blood Gas Sample Type Arterial; HCO3 ABG 24.5 mmol/L (22-26); Oxygen Device VENT
--- NOTE | 2019-12-06 10:40 | PM.PN ---
Subjective Subjective: Interval history: s/p HD yesterday. 900 cc urine output. remains on 60% fi02 this am Medications: Reviewed: Yes Medication Review Details: Current Medications Albuterol Sulfate (Ventolin) 2 puff INHALATION Q4H.RESPIRATORY PRN PRN Reason: SHORTNESS OF BREATH Albuterol/Ipratropium (Duoneb) 3 ml INHALATION Q6H.RESPIRATORY MARY Last Admin: 12/06/19 03:25 Dose: 3 ml Documented by: Citalopram Hydrobromide (Celexa) 20 mg PO DAILY [facility] Last Admin: 12/05/19 10:23 Dose: 20 mg Documented by: Cyclobenzaprine HCl (Flexeril) 5 mg PO TID PRN PRN Reason: MUSCLE SPASMS Dextrose (D50w) 25 ml IVP ONCE PRN; Protocol PRN Reason: hypoglycemia protocol Dextrose (D50w) 50 ml IVP PRN PRN; Protocol PRN Reason: hypoglycemia protocol Fentanyl (Sublimaze) 25 mcg IVP Q2H PRN PRN Reason: SEVERE PAIN Last Admin: 12/06/19 07:51 Dose: 25 mcg Documented by: Gabapentin (Neurontin) 100 mg PO TID [facility] Last Admin: 12/05/19 10:22 Dose: 100 mg Documented by: Glucagon (Glucagen) 1 mg IM ONCE PRN; Protocol PRN Reason: Adult Acute Hypoglycemia Prot. Heparin Sodium (Beef Lung) (Heparin) 5,000 unit SUBCUT Q12H [facility] Last Admin: 12/06/19 00:30 Dose: 5,000 unit Documented by: Hydromorphone HCl (Dilaudid Inj) 2 mg IVP Q2H PRN PRN Reason: AGITATION Last Admin: 12/06/19 05:23 Dose: 2 mg Documented by: Dextrose (D5w) 500 mls @ 100 mls/hr IV ONCE PRN; Protocol PRN Reason: Adult Acute Hypoglycemia Prot Piperacillin Sod/Tazobactam (Sod 3.375 gm/ Sodium Chloride) 50 mls @ 12.5 mls/hr IV Q12H [facility]; Protocol Last Infusion: 12/05/19 14:30 Dose: Infused Documented by: Norepinephrine Bitartrate 4 mg (/ Dextrose) 254 mls @ 0 mls/hr IV .Q0M [facility]; Protocol Last Titration: 12/05/19 21:00 Dose: 0 mcg/min, 0 mls/hr Documented by: Propofol (Diprivan) 1,000 mg in 100 mls @ 0 mls/hr IV .Q0M [facility]; Protocol Last Admin: 12/06/19 07:35 Dose: 50 mcg/kg/min, 45.9 mls/hr Documented by: Furosemide 100 mg/ Sodium (Chloride) 50 mls @ 2.5 mls/hr IV .Q20H [facility]; Protocol Last Admin: 12/06/19 07:36 Dose: 5 mg/hr, 2.5 mls/hr Documented by: Insulin Aspart (Novolog) 0 unit SUBCUT TIDWM [facility]; Protocol Last Admin: 12/05/19 13:24 Dose: Not Given Documented by: Insulin Aspart (Novolog) 0 unit SUBCUT BEDTIME [facility]; Protocol Last Admin: 12/05/19 21:08 Dose: 2 unit Documented by: Lactulose (Constulose) 10 gm PO BID [facility] Last Admin: 12/05/19 10:25 Dose: 10 gm Documented by: Naloxone HCl (Narcan) 0.1 mg IVP Q2M PRN PRN Reason: OPIATERV Nicotine (Nicoderm 21 Mg Patch) 1 patch TRANSDERMA DAILY PRN PRN Reason: WITHDRAWAL Ondansetron HCl (Zofran) 4 mg IVP Q4H PRN PRN Reason: vomiting, or N/V if npo Oxycodone HCl (Oxycodone Ir) 5 mg PO Q6H PRN PRN Reason: SEVERE PAIN Pantoprazole Sodium (Protonix) 40 mg PO DAILY [facility] Last Admin: 12/05/19 10:22 Dose: 40 mg Documented by: Senna/Docusate Sodium (Senna-S) 2 tab PO BID [facility] Last Admin: 12/05/19 10:21 Dose: 2 tab Documented by: Vitals/I&O/Wt Last Vital Signs Temp 98.2 F 12/06/19 08:00 Pulse 116 H 12/06/19 10:00 Resp 15 12/06/19 10:12 BP 124/68 12/06/19 10:00 Pulse Ox 98 12/06/19 10:00 12/05/19 12/06/19 12/06/19 22:59 06:59 14:59 Intake Total 231.535 / 781.535 292.565 / 1074.100 78.03 / 78.03 Output Total 75 / 75 850 / 925 1650 / 1650 Balance 156.535 / 706.535 -557.435 / 149.100 -1571.97 / -1571.97 Physical Exam Narrative: EXAM NARRATIVE: GEN: Intubated, sedated CVS: S1S2 N RS: CTA B/L anteiorly Abd: Soft, nt/nd , bs+ 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, 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 Urinary Catheter Management^: Lee: Cath Placed During This Visit: yes, but has since been removed by the nurse Reason for Continuing Indwelling Catheter: Accurate Measurement of Urinary Output in Critically Ill Patients Urinary Catheter Date of Insertion: 12/05/19 Urinary Catheter Time of Insertion: 05:45 Date Urinary Catheter Removed: 12/05/19 Time Urinary Catheter Discontinued: 05:00 Data : 12/06/19 04:46 12/06/19 12:21 Micro: Microbiology 12/06/19 04:46 Blood Culture - Preliminary Blood SPECIMEN COLLECTED 12/06/19 04:50 Blood Culture - Preliminary Blood SPECIMEN COLLECTED A&P Assessment and plan (1) Acute renal failure: Presumably from urinary retention, poor intake although no hydronephrosis seen on CT scan. Lisinopril, hydrochlorothiazide, Aldactone, naproxen could have also played a role. With hydration overnight she has not improved Nephrology has been consulted for HD urine output 900cc I ordered a CK earlier this morning, it is elevated at 1969 indicating at least mild rhabdomyolysis Status: Acute Code(s): N17.9 - Acute kidney failure, unspecified (2) Urinary retention: Lee catheter Status: Acute Code(s): R33.9 - Retention of urine, unspecified (3) Pelvic mass: Will need follow-up with her gynecology oncology physician in [place] that she has been referred to. Status: Acute Code(s): R19.00 - Intra-abdominal and pelvic swelling, mass and lump, unspecified site Additional A&P Information Abdominal pain. Etiology uncertain. As this is right sided liver function tests been elevated or somewhat concerning. However, on review of her CAT scan it also is apparent she has a fair amount of stool on the right side of her abdomen. Lactulose was initiated the patient has yet to have a bowel movement Elevated liver function test. No obvious biliary etiology noted on CT scan. She has had a cholecystectomy. If this does not improve with hydration consider further evaluation with ultrasound which may not be useful or MRCP. Her liver function tests have been intermittently elevated in the past with the exception of bilirubin. Hepatitis panel has been ordered. Check acetaminophen level, INR. I suspect fatty liver will be the cause. history of asthma. Nebs as needed Morbid obesity Tobacco dependency, will be counseled on abstinence History of hypertension. Continue to hold medications secondary to lower blood pressures noted. No specific evidence of infection currently but continue to evaluate secondary to hypotension. At this point secondary to worsening we will add Zosyn secondary to abdominal complaints, elevated white blood cell count, increased LFTs and check procalcitonin level as well as blood cultures Type 2 diabetes. Sliding scale insulin Chronic pain Depression continue antidepressant GERD Heparin for DVT prophylaxis Full code Attestations Medical Necessity Statement*: optimization of respiratory status Coding Level of Care Code Acute Costume Draper for Chg Fwd Diagnoses Acute renal failure N17.9 Urinary retention R33.9 Pelvic mass R19.00
[2019-12-06 12:05] LABS: Anti-Nuclear Antibody Screen NEGATIVE (NEGATIVE)
[2019-12-06 12:50] LABS: Anion Gap 20.3 (5-19); Blood Urea Nitrogen 34 mg/dL (6-20); Calcium 9.2 mg/dL (8.5-10.5); Carbon Dioxide 24 mmol/L (22-29); Chloride 97 mmol/L (98-107); Glomerular Filtration Rate 18.1 mL/min (90-130); Glucose 206 mg/dL (65-115); Osmolality Calculated 287 mOsm/kg (285-295); Potassium 4.3 mmol/L (3.5-5.1); Sodium 137 mmol/L (136-145)
[2019-12-06 20:49] LABS: Glucose Point of Care 191 mg/dL (70-110)
[2019-12-06 20:49] LABS: Glucose Point of Care 144 mg/dL (70-110)
[2019-12-06 21:27] LABS: Glucose Point of Care 148 mg/dL (70-110)
[2019-12-06] MEDS: fentaNYL 50 mcg/mL INJ 2mL IVP (23:42)
[2019-12-07] VITALS (38 sets, daily range): BP systolic 93–126; BP diastolic 46–79; PULSE 94–111; RESP 13–29; TEMP 37.1–37.2; O2SAT 90–97
--- NOTE | 2019-12-07 01:19 | PC.NURSE ---
patient pulled out left hand IV and right AC by throwing her arm back and forth and getting ahold the line tried multiple times to restart peripheral line called DR. Rob and he okayed starting an IV in the patients foot.
[2019-12-07] MEDS: heparin 5,000 unit/mL INJ 1 mL 5000 UNIT SUBCUT ×2 (01:51→15:39)
[2019-12-07] MEDS: propofol 1,000 MG/100 ML INJ 45.9 MG IV ×7 (01:51→22:47)
[2019-12-07] MEDS: ipratropium-albuterol 3 mL Neb INHALATION ×4 (02:12→20:03)
[2019-12-07] MEDS: fentaNYL 50 mcg/mL INJ 2mL 25 MCG IVP (03:32)
[2019-12-07] MEDS: HYDROmorphone 1 mg/mL INJ 1 mL 2 MG IVP ×8 (04:46→23:17)
[2019-12-07 04:56] LABS: Alanine Aminotransferase 206 U/L (0-33); Albumin Level 3.4 g/dL (3.5-5.2); Alkaline Phosphatase 189 IU/L (35-105); Anion Gap 18.9 (5-19); Aspartate Amino Transferase 87 U/L (0-32); Blood Urea Nitrogen 24 mg/dL (6-20); Calcium 9.4 mg/dL (8.5-10.5); Carbon Dioxide 25 mmol/L (22-29); Chloride 96 mmol/L (98-107); Globulin 3.4 g/dL (1.3-4.6); Glomerular Filtration Rate 32.6 mL/min (90-130); Glucose 180 mg/dL (65-115); Magnesium 1.8 mg/dL (1.7-2.3); Osmolality Calculated 283 mOsm/kg (285-295); Phosphorus 4.2 mg/dL (2.5-4.5); Potassium 3.9 mmol/L (3.5-5.1); Sodium 136 mmol/L (136-145); Total Bilirubin 1.2 mg/dL (0.15-1.2); Total Protein 6.8 g/dL (6.6-8.7)
--- NOTE | 2019-12-07 06:49 | XR_ITS ---
WS: [id number] PORTABLE CHEST HISTORY: chf COMPARISON: 12/06/2019 Endotracheal tube in good position. Nasogastric tube also in good position. RIGHT internal jugular sh eath with tip overlying the RIGHT heart. Lung volumes are decreased. Areas of atelectasis and mild pulmonary congestion. No improvement since the prior study. Mild blunting of the RIGHT costophrenic angle. Cardiac size: Mildly enlarged cardiac silhouette. Mediastinum/Aorta: Mild atherosclerosis aorta. No osseous abnormality seen. XR/XR chest 1V portable [id number] IMPRESSION: 1. Nasogastric, endotracheal tube and RIGHT IJ sheath remain in good position. 2. Lung volumes are decreased with bilateral areas of atelectasis and mild pul monary congestion. Neck/small RIGHT pleural effusion suspected.
--- NOTE | 2019-12-07 07:08 | PM.PN ---
Subjective Subjective: Interval history: remains intubated on fio2=40%. responds to pain. not able to get a ROS Medications: Reviewed: Yes Medication Review Details: Current Medications Albuterol Sulfate (Ventolin) 2 puff INHALATION Q4H.RESPIRATORY PRN PRN Reason: SHORTNESS OF BREATH Albuterol/Ipratropium (Duoneb) 3 ml INHALATION Q6H.RESPIRATORY [facility] Last Admin: 12/07/19 02:12 Dose: 3 ml Documented by: Citalopram Hydrobromide (Celexa) 20 mg PO DAILY [facility] Last Admin: 12/05/19 10:23 Dose: 20 mg Documented by: Cyclobenzaprine HCl (Flexeril) 5 mg PO TID PRN PRN Reason: MUSCLE SPASMS Dextrose (D50w) 25 ml IVP ONCE PRN; Protocol PRN Reason: hypoglycemia protocol Dextrose (D50w) 50 ml IVP PRN PRN; Protocol PRN Reason: hypoglycemia protocol Fentanyl (Sublimaze) 25 mcg IVP Q2H PRN PRN Reason: SEVERE PAIN Last Admin: 12/07/19 03:32 Dose: 25 mcg Documented by: Gabapentin (Neurontin) 100 mg PO TID [facility] Last Admin: 12/05/19 10:22 Dose: 100 mg Documented by: Glucagon (Glucagen) 1 mg IM ONCE PRN; Protocol PRN Reason: Adult Acute Hypoglycemia Prot. Heparin Sodium (Beef Lung) (Heparin) 5,000 unit SUBCUT Q12H [facility] Last Admin: 12/07/19 01:51 Dose: 5,000 unit Documented by: Hydromorphone HCl (Dilaudid Inj) 2 mg IVP Q2H PRN PRN Reason: AGITATION Last Admin: 12/07/19 04:46 Dose: 2 mg Documented by: Dextrose (D5w) 500 mls @ 100 mls/hr IV ONCE PRN; Protocol PRN Reason: Adult Acute Hypoglycemia Prot Piperacillin Sod/Tazobactam (Sod 3.375 gm/ Sodium Chloride) 50 mls @ 12.5 mls/hr IV Q12H [facility]; Protocol Last Infusion: 12/05/19 14:30 Dose: Infused Documented by: Norepinephrine Bitartrate 4 mg (/ Dextrose) 254 mls @ 0 mls/hr IV .Q0M [facility]; Protocol Last Titration: 12/05/19 21:00 Dose: 0 mcg/min, 0 mls/hr Documented by: Propofol (Diprivan) 1,000 mg in 100 mls @ 0 mls/hr IV .Q0M [facility]; Protocol Last Admin: 12/07/19 05:04 Dose: 50 mcg/kg/min, 45.9 mls/hr Documented by: Furosemide 100 mg/ Sodium (Chloride) 50 mls @ 1.5 mls/hr IV .Q24H [facility]; Protocol Last Titration: 12/06/19 13:22 Dose: 3 mg/hr, 1.5 mls/hr Documented by: Insulin Aspart (Novolog) 0 unit SUBCUT TIDWM [facility]; Protocol Last Admin: 12/06/19 17:32 Dose: 4 unit Documented by: Insulin Aspart (Novolog) 0 unit SUBCUT BEDTIME [facility]; Protocol Last Admin: 12/06/19 21:37 Dose: 2 unit Documented by: Lactulose (Constulose) 10 gm PO BID [facility] Last Admin: 12/06/19 17:31 Dose: 10 gm Documented by: Naloxone HCl (Narcan) 0.1 mg IVP Q2M PRN PRN Reason: OPIATERV Nicotine (Nicoderm 21 Mg Patch) 1 patch TRANSDERMA DAILY PRN PRN Reason: WITHDRAWAL Ondansetron HCl (Zofran) 4 mg IVP Q4H PRN PRN Reason: vomiting, or N/V if npo Oxycodone HCl (Oxycodone Ir) 5 mg PO Q6H PRN PRN Reason: SEVERE PAIN Pantoprazole Sodium (Protonix) 40 mg PO DAILY [facility] Last Admin: 12/05/19 10:22 Dose: 40 mg Documented by: Senna/Docusate Sodium (Senna-S) 2 tab PO BID [facility] Last Admin: 12/05/19 10:21 Dose: 2 tab Documented by: Vitals/I&O/Wt Last Vital Signs Temp 98.9 F 12/07/19 06:05 Pulse 105 H 12/07/19 06:05 Resp 21 H 12/07/19 04:46 BP 100/48 12/07/19 06:05 Pulse Ox 90 12/07/19 06:05 12/06/19 12/07/19 12/07/19 22:59 06:59 14:59 Intake Total 390.27 / 718.202 377.265 / 1095.467 Output Total 1250 / 5625 2700 / 8325 Balance -859.73 / -4906.798 -2322.735 / -7229.533 Physical Exam Narrative: EXAM NARRATIVE: morbidly obese female intubated on 40% fio2 - over 8 l uop heent- nc/at, eomi neck- obese lung b/l crackles and ronchi dec b/l heart reg, +JORDAN abd soft, nt, nd, +BS ext + b/l edema + joya neuro- sedated Urinary Catheter Management^: Joya: Cath Placed During This Visit: yes, but has since been removed by the nurse Reason for Continuing Indwelling Catheter: Accurate Measurement of Urinary Output in Critically Ill Patients Urinary Catheter Date of Insertion: 12/05/19 Urinary Catheter Time of Insertion: 05:45 Date Urinary Catheter Removed: 12/05/19 Time Urinary Catheter Discontinued: 05:00 Data : 12/06/19 04:46 12/07/19 04:23 Micro: Microbiology 12/06/19 04:46 Blood Culture - Preliminary Blood NEGATIVE TO DATE 12/06/19 04:50 Blood Culture - Preliminary Blood NEGATIVE TO DATE A&P Additional A&P Information 34 yr old female morbid obesity. 1. Pelvic mass- transition nurse -onc f/u 2. REJI- likely ATN from nsaid, leonidas-i, thiazide, and aldactone. BP remains low. no hydronephrosis on imaging -cr giuliana from 0.8 on 12/01/19 to 3.2 on 12/04/19 to 5.9 to 6.7- had HD 12/05/19 -k and cr improving -no acidosis -amazing diuresis- lower lasix -cxr w/ pna and chf -monitor uop, chemistries -PLEASE REMOVE DIALYSIS CATHETER 3. inc lft's- likely shocked liver 4.sepsis- renal dose abx as per hospitalist 5. normal tsh and cortisol level 6. VDRF- wean off vent as per hospitalist discussed w/ pt, RN, -pt seen via telemedicine w/ RN at bedside Attestations Medical Necessity Statement*: reji, vdrf, Time Spent in Patient Care: 16 - 35 minutes Coding Level of Care Code Acute Automation Engineer for Leonela Escobedo
[2019-12-07] MEDS: FUROsemide 100 MG in sodium chloride 0.9% 40 ML IV (07:28)
[2019-12-07 07:49] LABS: Glucose Point of Care 151 mg/dL (70-110)
[2019-12-07] MEDS: lactulose oral liq 20 gm/30 mL UDC 10 GM PO ×2 (08:46→17:18)
[2019-12-07 11:22] LABS: Glucose Point of Care 145 mg/dL (70-110)
[2019-12-07 13:45] LABS: ABG PCO2 57.4 mmHg (35-45); ABG PH Result 7.35 (7.35-7.45); Alveolar-Arterial Oxygen Gradi 130.4 mmHg (5-10); Arterial Blood Gas Hematocrit 35.2 % (37-47); Base Excess ABG 4.3 mmol/L (-2.0-2.0); Blood Gas Allen Test Pos; Blood Gas Sample Site Radial, left; Blood Gas Sample Type Arterial; Carboxyhemoglobin 0.8 %THgb (0.4-20.1); HCO3 ABG 31.2 mmol/L (22-26); HGB O2 Sat 94.1 % (95-100); Ionized Calcium Level - ABG 1.2 mmol/L (1.1-1.4); Oxygen Device VENT; Oxygen Saturation ABG 95.8; PO2 ABG 81.2 mmHg (80.0-100.0); Potassium Level - ABG 4.1 mmol/L (3.5-5.0); Total Hemoglobin 11.5 g/dL (12-16)
[2019-12-07] MEDS: propofol 1,000 MG/100 ML INJ 32.1 MG IV (14:06)
[2019-12-07 16:56] LABS: Glucose Point of Care 139 mg/dL (70-110)
--- NOTE | 2019-12-07 17:11 | PM.PN ---
Subjective Subjective: Interval history: Remains intubated, sedated, on lasix drip. Renal function continues to improve. Blood gas improving this morning however still requires high fi02 up to 65% intermittently Medications: Reviewed: Yes Medication Review Details: Current Medications Albuterol Sulfate (Ventolin) 2 puff INHALATION Q4H.RESPIRATORY PRN PRN Reason: SHORTNESS OF BREATH Albuterol/Ipratropium (Duoneb) 3 ml INHALATION Q6H.RESPIRATORY [facility] Last Admin: 12/08/19 02:43 Dose: 3 ml Documented by: Citalopram Hydrobromide (Celexa) 20 mg PO DAILY [facility] Last Admin: 12/05/19 10:23 Dose: 20 mg Documented by: Cyclobenzaprine HCl (Flexeril) 5 mg PO TID PRN PRN Reason: MUSCLE SPASMS Dextrose (D50w) 25 ml IVP ONCE PRN; Protocol PRN Reason: hypoglycemia protocol Dextrose (D50w) 50 ml IVP PRN PRN; Protocol PRN Reason: hypoglycemia protocol Fentanyl (Sublimaze) 25 mcg IVP Q2H PRN PRN Reason: SEVERE PAIN Last Admin: 12/08/19 02:47 Dose: 25 mcg Documented by: Gabapentin (Neurontin) 100 mg PO TID [facility] Last Admin: 12/05/19 10:22 Dose: 100 mg Documented by: Glucagon (Glucagen) 1 mg IM ONCE PRN; Protocol PRN Reason: Adult Acute Hypoglycemia Prot. Heparin Sodium (Beef Lung) (Heparin) 5,000 unit SUBCUT Q12H [facility] Last Admin: 12/08/19 02:48 Dose: 5,000 unit Documented by: Hydromorphone HCl (Dilaudid Inj) 2 mg IVP Q2H PRN PRN Reason: AGITATION Last Admin: 12/08/19 03:31 Dose: 2 mg Documented by: Dextrose (D5w) 500 mls @ 100 mls/hr IV ONCE PRN; Protocol PRN Reason: Adult Acute Hypoglycemia Prot Piperacillin Sod/Tazobactam (Sod 3.375 gm/ Sodium Chloride) 50 mls @ 12.5 mls/hr IV Q12H [facility]; Protocol Last Infusion: 12/05/19 14:30 Dose: Infused Documented by: Norepinephrine Bitartrate 4 mg (/ Dextrose) 254 mls @ 0 mls/hr IV .Q0M [facility]; Protocol Last Titration: 12/05/19 21:00 Dose: 0 mcg/min, 0 mls/hr Documented by: Propofol (Diprivan) 1,000 mg in 100 mls @ 0 mls/hr IV .Q0M [facility]; Protocol Last Admin: 12/08/19 07:05 Dose: 40 mcg/kg/min, 36.7 mls/hr Documented by: Furosemide 100 mg/ Sodium (Chloride) 50 mls @ 2.5 mls/hr IV .Q20H [facility]; Protocol Dexmedetomidine HCl 400 mcg/ (Sodium Chloride) 104 mls @ 0 mls/hr IV .Q0M [facility]; Protocol Last Titration: 12/08/19 06:32 Dose: 0.5 mcg/kg/hr, 19.9 mls/hr Documented by: Insulin Aspart (Novolog) 0 unit SUBCUT TIDWM [facility]; Protocol Last Admin: 12/07/19 17:18 Dose: Not Given Documented by: Insulin Aspart (Novolog) 0 unit SUBCUT BEDTIME [facility]; Protocol Last Admin: 12/07/19 20:32 Dose: 2 unit Documented by: Lactulose (Constulose) 10 gm PO BID [facility] Last Admin: 12/07/19 17:18 Dose: 10 gm Documented by: Naloxone HCl (Narcan) 0.1 mg IVP Q2M PRN PRN Reason: OPIATERV Nicotine (Nicoderm 21 Mg Patch) 1 patch TRANSDERMA DAILY PRN PRN Reason: WITHDRAWAL Ondansetron HCl (Zofran) 4 mg IVP Q4H PRN PRN Reason: vomiting, or N/V if npo Oxycodone HCl (Oxycodone Ir) 5 mg PO Q6H PRN PRN Reason: SEVERE PAIN Pantoprazole Sodium (Protonix) 40 mg PO DAILY [facility] Last Admin: 12/05/19 10:22 Dose: 40 mg Documented by: Senna/Docusate Sodium (Senna-S) 2 tab PO BID [facility] Last Admin: 12/05/19 10:21 Dose: 2 tab Documented by: Vitals/I&O/Wt Last Vital Signs Temp 98.8 F 12/07/19 14:33 Pulse 98 12/07/19 14:33 Resp 14 12/07/19 16:30 BP 120/65 12/07/19 14:33 Pulse Ox 94 12/07/19 16:30 12/07/19 12/07/19 12/07/19 06:59 14:59 22:59 Intake Total 377.265 / 1095.467 425.452 / 425.452 Output Total 2700 / 8325 1100 / 1100 Balance -2322.735 / -7229.533 425.452 / 425.452 -1100 / -674.548 Physical Exam Narrative: EXAM NARRATIVE: GEN: Intubated, sedated CVS: S1S2 N RS: CTA B/L anteiorly Abd: Soft, nt/nd , bs+ AUTOMOTIVE PARTS COUNTER PERSON: intubated, sedated Urinary Catheter Management^: Lee: Cath Placed During This Visit: yes, but has since been removed by the nurse Reason for Continuing Indwelling Catheter: Accurate Measurement of Urinary Output in Critically Ill Patients Urinary Catheter Date of Insertion: 12/05/19 Urinary Catheter Time of Insertion: 05:45 Date Urinary Catheter Removed: 12/05/19 Time Urinary Catheter Discontinued: 05:00 Data : 12/06/19 04:46 12/08/19 04:33 Micro: Microbiology 12/06/19 04:46 Blood Culture - Preliminary Blood NEGATIVE TO DATE 12/06/19 04:50 Blood Culture - Preliminary Blood NEGATIVE TO DATE A&P Assessment and plan (1) Acute renal failure: Presumably from urinary retention, poor intake although no hydronephrosis seen on CT scan. Lisinopril, hydrochlorothiazide, Aldactone, naproxen could have also played a role along with rhabdomyolysis. Status: Acute (2) Urinary retention: Lee catheter Status: Acute (3) Pelvic mass: Will need follow-up with her gynecology oncology physician in [place] that she has been referred to. Status: Acute Additional A&P Information Abdominal pain. Etiology uncertain. As this is right sided liver function tests been elevated or somewhat concerning. However, on review of her CAT scan it also is apparent she has a fair amount of stool on the right side of her abdomen. Lactulose was initiated the patient has yet to have a bowel movement Elevated liver function test. No obvious biliary etiology noted on CT scan. She has had a cholecystectomy. If this does not improve with hydration consider further evaluation with ultrasound which may not be useful or MRCP. Her liver function tests have been intermittently elevated in the past with the exception of bilirubin. Hepatitis panel has been ordered. Check acetaminophen level, INR. I suspect fatty liver will be the cause. history of asthma. Nebs as needed Morbid obesity Tobacco dependency, will be counseled on abstinence History of hypertension. Continue to hold medications secondary to lower blood pressures noted. No specific evidence of infection currently but continue to evaluate secondary to hypotension. At this point secondary to worsening we will add Zosyn secondary to abdominal complaints, elevated white blood cell count, increased LFTs and check procalcitonin level as well as blood cultures Type 2 diabetes. Sliding scale insulin Chronic pain Depression continue antidepressant GERD Heparin for DVT prophylaxis Full code Attestations Medical Necessity Statement*: awiaiting optimization of respiratory status, hopefully will be able to extubate over the next 24 hrs Coding Level of Care Code Acute Research Assistant Member for Leonela Escobedo Diagnoses Acute renal failure N17.9 Urinary retention R33.9 Pelvic mass R19.00
[2019-12-07] MEDS: propofol 1,000 MG/100 ML INJ 36.7 MG IV ×2 (17:18→20:02)
[2019-12-07 20:32] LABS: Glucose Point of Care 171 mg/dL (70-110)
[2019-12-08] VITALS (26 sets, daily range): BP systolic 95–150; BP diastolic 54–88; PULSE 78–107; RESP 14–27; TEMP 36.7–37.2; O2SAT 91–96
[2019-12-08] MEDS: propofol 1,000 MG/100 ML INJ 45.9 MG IV ×2 (00:42→02:15)
[2019-12-08] MEDS: ipratropium-albuterol 3 mL Neb INHALATION ×4 (02:43→20:05)
[2019-12-08] MEDS: fentaNYL 50 mcg/mL INJ 2mL 25 MCG IVP (02:47)
[2019-12-08] MEDS: heparin 5,000 unit/mL INJ 1 mL 5000 UNIT SUBCUT ×2 (02:48→14:55)
[2019-12-08] MEDS: HYDROmorphone 1 mg/mL INJ 1 mL 2 MG IVP ×5 (03:31→23:53)
[2019-12-08 05:00] LABS: ABG PCO2 54.8 mmHg (35-45); ABG PH Result 7.37 (7.35-7.45); Arterial Blood Gas Hematocrit 35.4 % (37-47); Blood Gas Allen Test Pos; Blood Gas Sample Site Radial, right; Blood Gas Sample Type Arterial; HCO3 ABG 31.5 mmol/L (22-26); Oxygen Device VENT; PO2 ABG 76.9 mmHg (80.0-100.0)
[2019-12-08 05:07] LABS: Alanine Aminotransferase 173 U/L (0-33); Albumin Level 3.5 g/dL (3.5-5.2); Alkaline Phosphatase 186 IU/L (35-105); Anion Gap 17.1 (5-19); Aspartate Amino Transferase 77 U/L (0-32); Blood Urea Nitrogen 25 mg/dL (6-20); Calcium 9.6 mg/dL (8.5-10.5); Carbon Dioxide 27 mmol/L (22-29); Chloride 96 mmol/L (98-107); Globulin 4.3 g/dL (1.3-4.6); Glomerular Filtration Rate 57.6 mL/min (90-130); Glucose 153 mg/dL (65-115); Magnesium 1.8 mg/dL (1.7-2.3); Osmolality Calculated 282 mOsm/kg (285-295); Potassium 4.1 mmol/L (3.5-5.1); Sodium 136 mmol/L (136-145); Total Bilirubin 1.7 mg/dL (0.15-1.2); Total Protein 7.8 g/dL (6.6-8.7)
--- NOTE | 2019-12-08 06:43 | PC.NURSE ---
SHIFT SUMMARY PT HAS NEEDED PAIN MEDS THROUGHOUT THE NIGHT. PT HAS THRASHED AROUND THE BED AT TIMES. PT LUNGS REMAIN COARSE/RONCHI. DR SAGASTUME PUT IN ORDER TO INCREASE LASIX DRIP. PRECEDEX WAS STARTED PER DR HUYNH. PT IVS REMAIN PATENT.
--- NOTE | 2019-12-08 07:00 | PC.NURSE ---
received resting comfortably in vent, precedex is started and diprivan being weaned for extubation
[2019-12-08] MEDS: propofol 1,000 MG/100 ML INJ 36.7 MG IV (07:05)
--- NOTE | 2019-12-08 07:17 | P.PN_ITS ---
Subjective Subjective: Interval history: remains intubated and sedated. Medications: Reviewed: Yes Medication Review Details: Current Medications Albuterol Sulfate (Ventolin) 2 puff INHALATION Q4H.RESPIRATORY PRN PRN Reason: SHORTNESS OF BREATH Albuterol/Ipratropium (Duoneb) 3 ml INHALATION Q6H.RESPIRATORY [facility] Last Admin: 12/08/19 02:43 Dose: 3 ml Documented by: Citalopram Hydrobromide (Celexa) 20 mg PO DAILY [facility] Last Admin: 12/05/19 10:23 Dose: 20 mg Documented by: Cyclobenzaprine HCl (Flexeril) 5 mg PO TID PRN PRN Reason: MUSCLE SPASMS Dextrose (D50w) 25 ml IVP ONCE PRN; Protocol PRN Reason: hypoglycemia protocol Dextrose (D50w) 50 ml IVP PRN PRN; Protocol PRN Reason: hypoglycemia protocol Fentanyl (Sublimaze) 25 mcg IVP Q2H PRN PRN Reason: SEVERE PAIN Last Admin: 12/08/19 02:47 Dose: 25 mcg Documented by: Gabapentin (Neurontin) 100 mg PO TID [facility] Last Admin: 12/05/19 10:22 Dose: 100 mg Documented by: Glucagon (Glucagen) 1 mg IM ONCE PRN; Protocol PRN Reason: Adult Acute Hypoglycemia Prot. Heparin Sodium (Beef Lung) (Heparin) 5,000 unit SUBCUT Q12H [facility] Last Admin: 12/08/19 02:48 Dose: 5,000 unit Documented by: Hydromorphone HCl (Dilaudid Inj) 2 mg IVP Q2H PRN PRN Reason: AGITATION Last Admin: 12/08/19 03:31 Dose: 2 mg Documented by: Dextrose (D5w) 500 mls @ 100 mls/hr IV ONCE PRN; Protocol PRN Reason: Adult Acute Hypoglycemia Prot Piperacillin Sod/Tazobactam (Sod 3.375 gm/ Sodium Chloride) 50 mls @ 12.5 mls/hr IV Q12H [facility]; Protocol Last Infusion: 12/05/19 14:30 Dose: Infused Documented by: Norepinephrine Bitartrate 4 mg (/ Dextrose) 254 mls @ 0 mls/hr IV .Q0M [facility]; Protocol Last Titration: 12/05/19 21:00 Dose: 0 mcg/min, 0 mls/hr Documented by: Propofol (Diprivan) 1,000 mg in 100 mls @ 0 mls/hr IV .Q0M [facility]; Protocol Last Admin: 12/08/19 07:05 Dose: 40 mcg/kg/min, 36.7 mls/hr Documented by: Furosemide 100 mg/ Sodium (Chloride) 50 mls @ 2.5 mls/hr IV .Q20H [facility]; Protocol Dexmedetomidine HCl 400 mcg/ (Sodium Chloride) 104 mls @ 0 mls/hr IV .Q0M [facility]; Protocol Last Titration: 12/08/19 06:32 Dose: 0.5 mcg/kg/hr, 19.9 mls/hr Documented by: Insulin Aspart (Novolog) 0 unit SUBCUT TIDWM [facility]; Protocol Last Admin: 12/07/19 17:18 Dose: Not Given Documented by: Insulin Aspart (Novolog) 0 unit SUBCUT BEDTIME [facility]; Protocol Last Admin: 12/07/19 20:32 Dose: 2 unit Documented by: Lactulose (Constulose) 10 gm PO BID [facility] Last Admin: 12/07/19 17:18 Dose: 10 gm Documented by: Naloxone HCl (Narcan) 0.1 mg IVP Q2M PRN PRN Reason: OPIATERV Nicotine (Nicoderm 21 Mg Patch) 1 patch TRANSDERMA DAILY PRN PRN Reason: WITHDRAWAL Ondansetron HCl (Zofran) 4 mg IVP Q4H PRN PRN Reason: vomiting, or N/V if npo Oxycodone HCl (Oxycodone Ir) 5 mg PO Q6H PRN PRN Reason: SEVERE PAIN Pantoprazole Sodium (Protonix) 40 mg PO DAILY [facility] Last Admin: 12/05/19 10:22 Dose: 40 mg Documented by: Senna/Docusate Sodium (Senna-S) 2 tab PO BID [facility] Last Admin: 12/05/19 10:21 Dose: 2 tab Documented by: Vitals/I&O/Wt Last Vital Signs Temp 98.1 F 12/08/19 04:08 Pulse 103 H 12/08/19 06:23 Resp 20 H 12/08/19 06:14 BP 120/74 12/08/19 06:23 Pulse Ox 92 12/08/19 06:23 12/07/19 12/08/19 12/08/19 22:59 06:59 14:59 Intake Total 276.542 / 701.994 332.145 / 1034.139 0.85 / 0.85 Output Total 1100 / 1100 1000 / 2100 Balance -823.458 / -398.006 -667.855 / -1065.861 0.85 / 0.85 Physical Exam Narrative: EXAM NARRATIVE: morbidly obese female intubated on 40% fio2 - 2100 ml uop heent- nc/at, eomi neck- obese lung b/l crackles and ronchi dec b/l heart reg, +JORDAN abd soft, nt, nd, +BS ext + b/l edema + joya neuro- sedated Urinary Catheter Management^: Joya: Cath Placed During This Visit: yes, but has since been removed by the nurse Reason for Continuing Indwelling Catheter: Accurate Measurement of Urinary Output in Critically Ill Patients Urinary Catheter Date of Insertion: 12/05/19 Urinary Catheter Time of Insertion: 05:45 Date Urinary Catheter Removed: 12/05/19 Time Urinary Catheter Discontinued: 05:00 Data : 12/06/19 04:46 12/08/19 04:33 Micro: Microbiology 12/06/19 04:46 Blood Culture - Preliminary Blood NEGATIVE TO DATE 12/06/19 04:50 Blood Culture - Preliminary Blood NEGATIVE TO DATE A&P Additional A&P Information 34 yr old female morbid obesity. 1. Pelvic mass- kettle chipper -onc f/u 2. REJI- likely ATN from nsaid, leonidas-i, thiazide, and aldactone. BP remains low. no hydronephrosis on imaging -cr giuliana from 0.8 on 12/01/19 to 3.2 on 12/04/19 to 5.9 to 6.7- had HD 12/05/19 -k and cr improved to normal 3. cxr w/ pna and chf -monitor uop, chemistries -inc lasix tp 5 mg/hr -PLEASE REMOVE DIALYSIS CATHETER 3. further diuresis as per hospitalist 4.sepsis- abx as per hospitalist 5. normal tsh and cortisol level 6. VDRF- wean off vent as per hospitalist discussed w/ pt, RN, -pt seen via telemedicine w/ RN at bedside renal will see PRN, please call with questions Attestations Medical Necessity Statement*: VDRF Time Spent in Patient Care: 16 - 35 minutes Coding Level of Care Code Acute Broadcast Engineer for Chg Fanny
[2019-12-08 08:12] LABS: Glucose Point of Care 158 mg/dL (70-110)
[2019-12-08] MEDS: lactulose oral liq 20 gm/30 mL UDC 10 GM PO (08:36)
--- NOTE | 2019-12-08 09:20 | PC.NURSE ---
Awake and alert, tolerating ETT poorly. RT at bedside and patient extubated
--- NOTE | 2019-12-08 10:13 | PC.RESP ---
extubated pt extubated and placed on 4lpm nc sats dropped and pt then placed on heated high flow nc 43% 30lpm
[2019-12-08] MEDS: FUROsemide 10 mg/mL SDV 4mL 40 MG IVP (11:39)
[2019-12-08] MEDS: FUROsemide 100 MG in sodium chloride 0.9% 40 ML IV (11:41)
[2019-12-08 11:45] LABS: Glucose Point of Care 169 mg/dL (70-110)
--- NOTE | 2019-12-08 14:24 | P.PN_ITS ---
Subjective Subjective: Interval history: extubated this morning to [facility]. Since extubation requiring 45% fi02 at high flow rate, however able to sustain spontaneous breathing. Intermittently converses and replies appropriately to questions Medications: Reviewed: Yes Medication Review Details: Current Medications Albuterol Sulfate (Ventolin) 2 puff INHALATION Q4H.RESPIRATORY PRN PRN Reason: SHORTNESS OF BREATH Albuterol/Ipratropium (Duoneb) 3 ml INHALATION Q6H.RESPIRATORY [facility] Last Admin: 12/08/19 02:43 Dose: 3 ml Documented by: Citalopram Hydrobromide (Celexa) 20 mg PO DAILY [facility] Last Admin: 12/05/19 10:23 Dose: 20 mg Documented by: Cyclobenzaprine HCl (Flexeril) 5 mg PO TID PRN PRN Reason: MUSCLE SPASMS Dextrose (D50w) 25 ml IVP ONCE PRN; Protocol PRN Reason: hypoglycemia protocol Dextrose (D50w) 50 ml IVP PRN PRN; Protocol PRN Reason: hypoglycemia protocol Fentanyl (Sublimaze) 25 mcg IVP Q2H PRN PRN Reason: SEVERE PAIN Last Admin: 12/08/19 02:47 Dose: 25 mcg Documented by: Gabapentin (Neurontin) 100 mg PO TID [facility] Last Admin: 12/05/19 10:22 Dose: 100 mg Documented by: Glucagon (Glucagen) 1 mg IM ONCE PRN; Protocol PRN Reason: Adult Acute Hypoglycemia Prot. Heparin Sodium (Beef Lung) (Heparin) 5,000 unit SUBCUT Q12H [facility] Last Admin: 12/08/19 02:48 Dose: 5,000 unit Documented by: Hydromorphone HCl (Dilaudid Inj) 2 mg IVP Q2H PRN PRN Reason: AGITATION Last Admin: 12/08/19 03:31 Dose: 2 mg Documented by: Dextrose (D5w) 500 mls @ 100 mls/hr IV ONCE PRN; Protocol PRN Reason: Adult Acute Hypoglycemia Prot Piperacillin Sod/Tazobactam (Sod 3.375 gm/ Sodium Chloride) 50 mls @ 12.5 mls/hr IV Q12H [facility]; Protocol Last Infusion: 12/05/19 14:30 Dose: Infused Documented by: Norepinephrine Bitartrate 4 mg (/ Dextrose) 254 mls @ 0 mls/hr IV .Q0M [facility]; Protocol Last Titration: 12/05/19 21:00 Dose: 0 mcg/min, 0 mls/hr Documented by: Propofol (Diprivan) 1,000 mg in 100 mls @ 0 mls/hr IV .Q0M [facility]; Protocol Last Admin: 12/08/19 07:05 Dose: 40 mcg/kg/min, 36.7 mls/hr Documented by: Furosemide 100 mg/ Sodium (Chloride) 50 mls @ 2.5 mls/hr IV .Q20H [facility]; Protocol Dexmedetomidine HCl 400 mcg/ (Sodium Chloride) 104 mls @ 0 mls/hr IV .Q0M [facility]; Protocol Last Titration: 12/08/19 06:32 Dose: 0.5 mcg/kg/hr, 19.9 mls/hr Documented by: Insulin Aspart (Novolog) 0 unit SUBCUT TIDWM [facility]; Protocol Last Admin: 12/07/19 17:18 Dose: Not Given Documented by: Insulin Aspart (Novolog) 0 unit SUBCUT BEDTIME [facility]; Protocol Last Admin: 12/07/19 20:32 Dose: 2 unit Documented by: Lactulose (Constulose) 10 gm PO BID [facility] Last Admin: 12/07/19 17:18 Dose: 10 gm Documented by: Naloxone HCl (Narcan) 0.1 mg IVP Q2M PRN PRN Reason: OPIATERV Nicotine (Nicoderm 21 Mg Patch) 1 patch TRANSDERMA DAILY PRN PRN Reason: WITHDRAWAL Ondansetron HCl (Zofran) 4 mg IVP Q4H PRN PRN Reason: vomiting, or N/V if npo Oxycodone HCl (Oxycodone Ir) 5 mg PO Q6H PRN PRN Reason: SEVERE PAIN Pantoprazole Sodium (Protonix) 40 mg PO DAILY [facility] Last Admin: 12/05/19 10:22 Dose: 40 mg Documented by: Senna/Docusate Sodium (Senna-S) 2 tab PO BID [facility] Last Admin: 12/05/19 10:21 Dose: 2 tab Documented by: Vitals/I&O/Wt Last Vital Signs Temp 98.1 F 12/08/19 04:08 Pulse 89 12/08/19 13:56 Resp 20 H 12/08/19 13:56 BP 147/88 12/08/19 12:29 Pulse Ox 93 12/08/19 13:56 12/07/19 12/08/19 12/08/19 22:59 06:59 14:59 Intake Total 276.542 / 701.994 332.145 / 1034.139 223.752 / 223.752 Output Total 1100 / 1100 1000 / 2100 1450 / 1450 Balance -823.458 / -398.006 -667.855 / -1065.861 -1226.248 / -1226.248 Physical Exam Narrative: EXAM NARRATIVE: GEN: Awake, drowsy, however wakes up to calling name and answers simple questions. Morbidly obese. CVS: S1S2 N RS: CTA B/L anteiorly Abd: Soft, nt/nd , bs+ STAFF WRITER: no gross focal motor deficits Urinary Catheter Management^: Lee: Cath Placed During This Visit: yes, but has since been removed by the nurse Reason for Continuing Indwelling Catheter: Accurate Measurement of Urinary Output in Critically Ill Patients Urinary Catheter Date of Insertion: 12/05/19 Urinary Catheter Time of Insertion: 05:45 Date Urinary Catheter Removed: 12/05/19 Time Urinary Catheter Discontinued: 05:00 Data : 12/06/19 04:46 12/08/19 04:33 A&P Assessment and plan (1) Acute renal failure: Presumably from urinary retention, poor intake although no hydronephrosis seen on CT scan. Lisinopril, hydrochlorothiazide, Aldactone, naproxen could have also played a role along with rhabdomyolysis. Status: Acute (2) Urinary retention: Lee catheter Status: Acute (3) Pelvic mass: Will need follow-up with her gynecology oncology physician in [place] that she has been referred to. Status: Acute Additional A&P Information Abdominal pain. Etiology uncertain. As this is right sided liver function tests been elevated or somewhat concerning. However, on review of her CAT scan it also is apparent she has a fair amount of stool on the right side of her abdomen. Lactulose was initiated Elevated liver function test. No obvious biliary etiology noted on CT scan. She has had a cholecystectomy. Her liver function tests have been intermittently elevated in the past with the exception of bilirubin. Hepatitis panel negative. suspect fatty liver will be the cause. history of asthma. Nebs as needed Morbid obesity Type 2 diabetes. Sliding scale insulin Chronic pain Depression continue antidepressant GERD Heparin for DVT prophylaxis Full code Attestations Medical Necessity Statement*: awaiting optimization of respiratory status post extubation today Coding Level of Care Code Acute Chainstitch Tunnel Elastic Operator for Chg Fwd Diagnoses Acute renal failure N17.9 Urinary retention R33.9 Pelvic mass R19.00
--- NOTE | 2019-12-08 19:00 | PC.NURSE ---
Addendum entered by Tano Dasilva RN 12/08/19 21:47: Dr. Rob was called and notified said to continue watching patient Original Note: patient continues to be confused pulling at oxygen and telemetry leads when turning patient on her right side found dialysis catheter intact underneath patient no signs of bleeding from site stitches are in place. 1:1 sitter at bedside
[2019-12-08 22:35] LABS: Glucose Point of Care 141 mg/dL (70-110)
[2019-12-09] VITALS (19 sets, daily range): BP systolic 108–143; BP diastolic 70–92; PULSE 71–105; RESP 10–20; TEMP 36.4–37.3; O2SAT 89–98
[2019-12-09] MEDS: ipratropium-albuterol 3 mL Neb INHALATION ×3 (02:13→20:10)
[2019-12-09] MEDS: HYDROmorphone 1 mg/mL INJ 1 mL 2 MG IVP (03:25)
[2019-12-09] MEDS: heparin 5,000 unit/mL INJ 1 mL 5000 UNIT SUBCUT ×2 (03:25→14:45)
[2019-12-09 05:52] LABS: Alanine Aminotransferase 126 U/L (0-33); Alkaline Phosphatase 172 IU/L (35-105); Anion Gap 19.8 (5-19); Aspartate Amino Transferase 81 U/L (0-32); Blood Urea Nitrogen 23 mg/dL (6-20); Calcium 9.6 mg/dL (8.5-10.5); Carbon Dioxide 25 mmol/L (22-29); Chloride 98 mmol/L (98-107); Globulin 4.7 g/dL (1.3-4.6); Glomerular Filtration Rate 72.6 mL/min (90-130); Glucose 144 mg/dL (65-115); Magnesium 1.9 mg/dL (1.7-2.3); Osmolality Calculated 287 mOsm/kg (285-295); Phosphorus 3.9 mg/dL (2.5-4.5); Potassium 3.8 mmol/L (3.5-5.1); Sodium 139 mmol/L (136-145); Total Bilirubin 1.8 mg/dL (0.15-1.2); Total Protein 7.7 g/dL (6.6-8.7)
[2019-12-09] MEDS: LORazepam 2 mg/mL INJ 1 mL 1 MG IVP (07:51)
--- NOTE | 2019-12-09 09:30 | PC.SOCIAL ---
IMM Updated Page 2 of IMM updated and given to patient. Initialed, dated, and timed and placed in chart.
[2019-12-09] MEDS: lactulose oral liq 20 gm/30 mL UDC 10 GM PO (09:52)
--- NOTE | 2019-12-09 10:00 | PC.NURSE ---
Patient refused to take 15 ml of lactulose. Patient swallowed approxiametly 8ml and would not finish the remainder. Educated patient on the importance of medication and reason for medication administration.
--- NOTE | 2019-12-09 10:15 | PC.NURSE ---
Patient continues to pull at IV lines, attempts to climb out of bed, and refuses to keep monitors on despite redirection.
[2019-12-09 10:33] LABS: Glucose Point of Care 148 mg/dL (70-110)
[2019-12-09] MEDS: FUROsemide 100 MG in sodium chloride 0.9% 40 ML IV (11:02)
[2019-12-09 12:26] LABS: Glucose Point of Care 152 mg/dL (70-110)
--- NOTE | 2019-12-09 14:00 | PC.NURSE ---
10 ml of water removed from joya balloon. Joya removed at this time. Patient tolerated well.
--- NOTE | 2019-12-09 15:09 | PC.NURSE ---
Patient report called to N[facility] on [facility] floor. Patient belongings gathered. Patient transported via wheelchair to room 255-2. Patient self transferred from wheelchair to bed via stand by assistance. Patient sitter at bedside. Patient in stable condition upon departure.
--- NOTE | 2019-12-09 16:10 | P.PN_ITS ---
Subjective Subjective: Interval history: Patient with significant improvement today with regards to mental status and breathing. She is off of the high flow nasal cannula. Currently at the time of my evaluation she is on room air saturating 94 to 96%. She continues on a Lasix drip which will be transitioned to IV pushes of Lasix today. She remains afebrile and hemodynamic stable. Also seen working with PT and was able to move from room to counter with assistance from PT. Renal function has now normalized. Medications: Reviewed: Yes Vitals/I&O/Wt Last Vital Signs Temp 98.1 F 12/09/19 15:22 Pulse 90 12/09/19 15:22 Resp 18 12/09/19 15:22 BP 117/75 12/09/19 15:22 Pulse Ox 98 12/09/19 15:22 12/09/19 12/09/19 12/09/19 06:59 14:59 22:59 Intake Total 208 / 639.752 158.625 / 158.625 Output Total 5 / 3475 Balance -1817 / -2835.248 158.625 / 158.625 Physical Exam Narrative: EXAM NARRATIVE: GEN: Awake, alert and oriented, no acute distress, but overall appears to be tearful and emotional. Above was discussed with her who states that this is pretty much the patient's baseline mental status. He does not believe her to be altered at this time. CVS: S1S2 N RS: CTA B/L Abd: Soft, nt/nd , bs+ RECORDS AND TAPE RECORDINGS ENGINEER: no focal neuro deficits Urinary Catheter Management^: Joya: Cath Placed During This Visit: yes, but has since been removed by the nurse Reason for Continuing Indwelling Catheter: Accurate Measurement of Urinary Output in Critically Ill Patients Urinary Catheter Date of Insertion: 12/05/19 Urinary Catheter Time of Insertion: 05:45 Date Urinary Catheter Removed: 12/05/19 Time Urinary Catheter Discontinued: 05:00 Data : 12/06/19 04:46 12/09/19 04:55 A&P Assessment and plan (1) Acute renal failure: Presumably from urinary retention, poor intake although no hydronephrosis seen on CT scan. Lisinopril, hydrochlorothiazide, Aldactone, naproxen could have also played a role along with rhabdomyolysis. These medications are currently on hold. Patient's blood pressure is currently well controlled. STARLA screen is negative. Had HD on 12/05/2019 after which renal function has steadily improved. remove joya today. Status: Acute (2) Urinary retention: Joya catheter Status: Acute (3) Pelvic mass: Will need follow-up with her gynecology oncology physician in [place] that she has been referred to. Status: Acute Additional A&P Information Abdominal pain. Etiology uncertain. As this is right sided liver function tests been elevated or somewhat concerning. However, on review of her CAT scan it also is apparent she has a fair amount of stool on the right side of her abdomen. Lactulose was initiated Elevated liver function test. No obvious biliary etiology noted on CT scan. She has had a cholecystectomy. Her liver function tests have been intermittently elevated in the past with the exception of bilirubin. Hepatitis panel negative. suspect fatty liver will be the cause. history of asthma. Nebs as needed Morbid obesity Type 2 diabetes. Sliding scale insulin Chronic pain Depression continue antidepressant GERD transfer to floors today PT/ot eval as apepars deconsitioned. Will likely need in home services if elects to go home. refuses [place] Heparin for DVT prophylaxis Full code Attestations Medical Necessity Statement*: improving respiratory and renal function, anticpiated discharge over the next 24-48 hrs Coding Level of Care Code Acute Esthetician/Spa Coordinator for Chg Fwd Diagnoses Acute renal failure N17.9 Urinary retention R33.9 Pelvic mass R19.00
[2019-12-09 17:11] LABS: Glucose Point of Care 164 mg/dL (70-110)
[2019-12-09] MEDS: FUROsemide 10 mg/mL SDV 4mL 40 MG IVP (17:57)
[2019-12-09] MEDS: piperacillin-tazobactam 3.375 GM in sodium chloride 0.9% (plus) 50 ML IV (20:00)
[2019-12-09] MEDS: gabapentin 100 mg Capsule PO (20:06)
[2019-12-09 21:25] LABS: Glucose Point of Care 119 mg/dL (70-110)
[2019-12-09] MEDS: ondansetron 2 mg/ML SDV 2 mL 4 MG IVP (22:02)
[2019-12-10 03:43] VITALS: BP 145/91; PULSE 106; RESP 20; TEMP 36.9; O2SAT 96
[2019-12-10 03:57] VITALS: PULSE 106; RESP 19; O2SAT 96
[2019-12-10] MEDS: ipratropium-albuterol 3 mL Neb INHALATION ×2 (03:57→08:24)
[2019-12-10 04:03] VITALS: PULSE 104; O2SAT 95
[2019-12-10] MEDS: heparin 5,000 unit/mL INJ 1 mL 5000 UNIT SUBCUT (04:10)
[2019-12-10] MEDS: piperacillin-tazobactam 3.375 GM in sodium chloride 0.9% (plus) 50 ML IV (04:11)
[2019-12-10] MEDS: FUROsemide 10 mg/mL SDV 4mL 40 MG IVP (04:12)
[2019-12-10 06:10] LABS: Alanine Aminotransferase 89 U/L (0-33); Albumin Level 3.6 g/dL (3.5-5.2); Alkaline Phosphatase 158 IU/L (35-105); Aspartate Amino Transferase 49 U/L (0-32); Blood Urea Nitrogen 21 mg/dL (6-20); Calcium 9.6 mg/dL (8.5-10.5); Carbon Dioxide 27 mmol/L (22-29); Chloride 93 mmol/L (98-107); Globulin 3.9 g/dL (1.3-4.6); Glomerular Filtration Rate 64.3 mL/min (90-130); Glucose 165 mg/dL (65-115); Magnesium 1.5 mg/dL (1.7-2.3); Osmolality Calculated 288 mOsm/kg (285-295); Phosphorus 3.4 mg/dL (2.5-4.5); Sodium 139 mmol/L (136-145); Total Protein 7.5 g/dL (6.6-8.7)
[2019-12-10 06:58] LABS: Glucose Point of Care 176 mg/dL (70-110)
[2019-12-10 07:40] VITALS: BP 147/92; PULSE 101; RESP 18; TEMP 37; O2SAT 92
[2019-12-10 08:24] VITALS: PULSE 104; RESP 17; O2SAT 96
[2019-12-10 08:30] VITALS: PULSE 110
[2019-12-10] MEDS: lactulose oral liq 20 gm/30 mL UDC 10 GM PO (09:28)
[2019-12-10] MEDS: citalopram 20 mg Tablet PO (09:29)
[2019-12-10] MEDS: pantoprazole DR 40 mg Tablet PO (09:29)
[2019-12-10] MEDS: sennosides-docusate Tablet 2 TAB PO (09:29)
[2019-12-10] MEDS: gabapentin 100 mg Capsule PO (09:30)
--- NOTE | 2019-12-10 10:31 | PC.NURSE ---
Patient has requested to sign out AMA. Dr Quinn informed via phone. Patient condition GCS 15, on room air, able to ambulate per self. States understanding that no medications will be given and that risks include up to by checking out AMA. Spouse will pick patient up at ER. Charge nurse informed.
--- NOTE | 2019-12-10 10:59 | P.DS_ITS ---
Discharge Providers Date of Admission: 12/04/19 11:24 Date of Discharge: December 10, 2019 Attending Provider at Admission: Haroldo Wilder MD Attending Provider at Discharge: Nathalie Quinn MD Primary Care Provider: Celina Ruiz DO Diagnoses at Discharge Discharge Diagnosis (1) Acute renal failure: Status: Acute (2) Urinary retention: Status: Acute (3) Pelvic mass: Status: Acute Reason for Visit Reason for Visit: Reason For Visit: abd pain Hospital Course Discharge Summary: Lorraine Curry is a 34 year old female that presents to the hospital with inability to urinate in the setting of recently diagnosed pelvic mass. In the emergency department she was found to have urinary retention, and a Lee was placed. urology was consulted, No hydronephrosis or evidence of ureteral obstruction was noted. Pt became anuric, urgent HD was perfromed after placement of HD cath in OR under anesthesia. It was difficult to extubate post operatively as results of morbid obesity and pulmonary edema. She remained on a lasix drip, changed to iv lasix BID. exubated on 12/07 and did well post extubation. Most recently remained on room air, alert awake and oriented. Worked with PT. was recommended SNF for PT, however patient refused. This morning insisted on leaving AMA in spite of advice to the contrary. she left before i could assess her today. Physical Exam Narrative: EXAM NARRATIVE: left prior to assessment, unwilling to wait Urinary Catheter Management^: Lee: Cath Placed During This Visit: yes, but has since been removed by the nurse Reason for Continuing Indwelling Catheter: Accurate Measurement of Urinary Output in Critically Ill Patients Urinary Catheter Date of Insertion: 12/05/19 Urinary Catheter Time of Insertion: 05:45 Date Urinary Catheter Removed: 12/05/19 Time Urinary Catheter Discontinued: 05:00 Discharge Data Data Completed and Pending: Completed Studies During Hospitalization Category Date Time Status CT abdomen pelvis wo con [id number] Urge nt Cat Scan 12/04/19 08:31 Completed CXRP [XR chest 1V portable [id number]] R outine Exams 12/07/19 06:49 Completed XR chest 1V kayley ble [id number] Routine Exams 12/06/19 07:00 Completed XR chest 1V kayley ble [id number] Stat Exams 12/05/19 15:36 Completed Pending at discharge Category Date Time Status ABG FULL [Arteria l Blood Gas Full] Routine Lab 12/06/19 08:23 Ordered STARLA Screen w/ Ref karly Routine Lab 12/05/19 05:37 Results Blood Culture AM LABS Lab 12/06/19 04:46 Results Labs from last 24 hours 12/10/19 12/10/19 12/09/19 06:47 05:30 21:16 Sodium 139 Potassium 3.0 L Chloride 93 L Carbon Dioxide 27 Anion Gap 22.0 H BUN 21 H Creatinine 1.0 H GFR Calculation 64.3 L Glucose 165 H POC Glucose 176 119 Calculated Osmolal ity 288 Calcium 9.6 Phosphorus 3.4 Magnesium 1.5 L Total Bilirubin 1.0 AST 49 H ALT 89 H Alkaline Phosphata se 158 H Total Protein 7.5 Albumin 3.6 Globulin 3.9 12/09/19 12/09/19 17:07 12:22 Sodium Potassium Chloride Carbon Dioxide Anion Gap BUN Creatinine GFR Calculation Glucose POC Glucose 164 152 Calculated Osmolal ity Calcium Phosphorus Magnesium Total Bilirubin AST ALT Alkaline Phosphata se Total Protein Albumin Globulin Vitals: Last Vital Signs Temp 98.6 F 12/10/19 07:40 Pulse 110 H 12/10/19 08:30 Resp 17 12/10/19 08:24 BP 147/92 12/10/19 07:40 Pulse Ox 96 12/10/19 08:24 Discharge Plan Discharge Patient Disposition: Left Against Medical Advice Condition: Stable Prescriptions: No Action albuterol sulfate [Ventolin HFA] 90 mcg/actuation HFA aerosol inhaler 2 puff INHALATION Q6H PRN (Reason: Shortness Of Breath Or Wheezing) Qty: 8.5 RF: 1 tramadol 50 mg tablet 50 mg PO TID PRN (Reason: Pain) 30 Days Qty: 90 RF: 0 Hold Instructions: Resume on 11/04/19. Do not take tramadol while taking the hydrocodone gabapentin 300 mg capsule 300 mg PO TID MDD 3 Qty: 90 RF: 0 metformin 500 mg tablet 500 mg PO BID Qty: 180 RF: 1 cyclobenzaprine 10 mg tablet 10 mg PO TID Qty: 270 RF: 1 atenolol 25 mg tablet 25 mg PO BID Qty: 180 RF: 1 dulaglutide 1.5 mg/0.5 mL pen injector 1.5 mg SUBCUT Q7D Qty: 2 RF: 0 omeprazole 40 mg capsule,delayed release(DR/EC) 40 mg PO DAILY Qty: 90 RF: 0 Multiple Vitamins Tablet 1 tab PO DAILY RF: 0 Hair,Skin and Nails Tablet 1 tab PO DAILY RF: 0 spironolactone 25 mg tablet 25 mg PO DAILY RF: 0 citalopram 20 mg tablet 20 mg PO DAILY RF: 0 lisinopril-hydrochlorothiazide 20-25 mg tablet 1 tab PO DAILY RF: 0 naproxen [EC-Naprosyn] 500 mg tablet,delayed release (DR/EC) 500 mg PO BID PRN (Reason: pain) Qty: 20 RF: 0 Referrals: Celina Ruiz DO [Primary Care Provider] - (Call Friday and make an hospital follow-up appointment in 1 week with Celina Ruiz.) Patient Instructions: Acute Kidney Injury (DC), Acute Urinary Retention in Women (GEN) Discharge Date/Time: 12/10/19 10:43 Discharge Attestations Time Spent in Discharge Care*: less than 30 min Quality Metrics Clinical Quality Measures During this hospital stay, did patient experience: None Coding Level of Care Code Acute Cash Register Servicer for g Fwd Diagnoses Acute renal failure N17.9 Urinary retention R33.9 Pelvic mass R19.00
== END 2019-12-10 10:43 | disposition left against medical advice (07) | DRG 683 ==
LOC: ER 10:49 → MEDSURG 11:39 → ICU 12-05 15:05 → MEDSURG 12-09 15:07
PROVIDERS: Internal Medicine Nephrology; Physician Assistant; Surgery; Admitting Provider Internal Medicine; Emergency Provider Family Medicine; Family Provider Family Medicine; PCP Family Medicine; Visit Provider Student in an Organized Health Care Education/Training Program
PROC: 05HM33Z Insertion of Infusion Device into Right Internal Jugular Vein, Percutaneous Approach (ICD-10-PCS; principal; 2019-12-05 07:40)
DX: N17.0 Acute kidney failure with tubular necrosis (principal); Z68.44 Body mass index [BMI] 60.0-69.9, adult; M62.82 Rhabdomyolysis; J81.1 Chronic pulmonary edema; R19.00 Intra-abdominal and pelvic swelling, mass and lump, unspecified site; I95.9 Hypotension, unspecified; J45.909 Unspecified asthma, uncomplicated; Z53.29 Procedure and treatment not carried out because of patient's decision for other reasons; E66.01 Morbid (severe) obesity due to excess calories; I10 Essential (primary) hypertension; K21.9 Gastro-esophageal reflux disease without esophagitis; E11.9 Type 2 diabetes mellitus without complications; G89.29 Other chronic pain; M25.562 Pain in left knee; M25.561 Pain in right knee; F32.9 Major depressive disorder, single episode, unspecified; M62.838 Other muscle spasm; F17.210 Nicotine dependence, cigarettes, uncomplicated
CPT/HCPCS: 12345; 36415; 36416; 36600; 51798; 71045; 74176; 76000; 77001; 80048; 80051; 80053; 80306; 80307; 81001; 82140; 82436; 82533; 82550; 82803; 82810; 82962; 83690; 83735; 83986; 84100; 84133; 84145; 84300; 84443; 84484; 84703; 85025; 85610; 86038; 86705; 86706; 86709; 86803; 87040; 87340; 90935; 92610; 93005; 94002; 94003; 94640; 94660; 94799; 96372; 96374; 96375; 97116; 97161; 97167; 97530; 97535; 99282; 99283; A9270; C1752; J0330; J1170; J1644; J1815; J1885; J1940; J2001; J2060; J2250; J2270; J2370; J2405; J2543; J2704; J3010; J3490; J7030; J7040; Q3014

== ENCOUNTER 2019-12-18 10:30 | Emergency (ER) | payer MEDICARE, MEDICAID, SELFPAY ==
[2019-12-18 10:37] VITALS: BP 142/93; PULSE 97; RESP 18; TEMP 36.6; O2SAT 97; BMI 65.9
[2019-12-18 10:43] VITALS: RESP 18; O2SAT 97
--- NOTE | 2019-12-18 11:33 | W.ED.FALL ---
HPI - Fall General: Chief Complaint: Fall Stated Complaint: FALLING Time Seen by Provider: 12/18/19 10:32 History of Present Illness: HPI Narrative: 34-year-old female visiting from emergency room is complaining of she fell at home fall was mechanical in nature. Patient is really only has difficulty with balance. She denies any other injuries. MD complaint: fall Onset (ago): hour(s) Fall from: standing Fall witnessed: no Place fall occurred: home Loss of consciousness: None Prolonged down time: no Symptoms prior to fall: none and other (Weakness) Associated symptoms-after fall: Denies abdominal pain or chest pain Review of Systems Const: Denies: fever, chills, body aches, change in appetite, fatigue or malaise ENMT: Denies: throat pain, ear pain, nasal discharge or nasal congestion Card: Denies: chest pain, edema, shortness of breath on exertion or shortness of breath when lying down Resp: Denies: shortness of breath, productive cough or non-productive cough GI: Denies: abdominal pain, nausea, vomiting, vomiting blood, coffee grounds in vomit, diarrhea, constipation, bloating, blood in stool or black tarry stool : Denies: flank pain, difficulty urinating, painful urination, urinary frequency or urinary urgency Skin/Breast: Denies: rash or itching PFSH ED PFSH: Medical History Amenorrhea Asthma Benign essential HTN Bilateral chronic knee pain Bilateral leg edema Diabetes mellitus, without long-term current use of insulin GERD (gastroesophageal reflux disease) 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 Morbid obesity with BMI of 60.0-69.9, adult Muscle spasms of both lower extremities Pain management contract signed Prolonged depression Spinal stenosis, thoracic region Surgical History History of cholecystectomy Family History Father CAD (coronary artery disease) Diabetes Hypertension Family/Other Cancer Mother Diabetes Hypertension Social History Smoking and tobacco status: former smoker Alcohol intake: never Household members: spouse and family Marital status: Current occupational status: disabled Current occupation: disabled History of recent travel: No Physical Exam Const: COMMON NORMALS: no apparent distress GENERAL APPEARANCE: cooperative and comfortable NUTRITIONAL APPEARANCE: obese morbidly obese ORIENTATION/CONSCIOUSNESS: Yes awake, Yes oriented to person, Yes oriented to place and Yes oriented to time HENMT: COMMON NORMALS: normocephalic, head/scalp atraumatic, hearing grossly normal bilaterally, external ears normal, EAC's normal, TM's normal bilaterally, nasal mucous membranes and turbinates normal, moist oral mucous membranes and oropharynx normal HEAD & SCALP: normocephalic and atraumatic NOSE: nasal mucous membranes and turbinates normal EXTERNAL EAR: Yes external ears normal EXTERNAL AUDITORY CANAL: EAC's normal TYMPANIC MEMBRANE: TM's normal bilaterally Eye: COMMON NORMALS: PERRL, EOMs intact bilaterally, conjunctivae normal and no scleral icterus CONJUNCTIVA: Yes conjunctivae normal PUPIL: Yes PERRL Neck/C-Spine: COMMON NORMALS: full ROM, no lymphadenopathy, supple and no JVD Lymph: LYMPHATIC: no lymphadenopathy noted and no lymphedema noted Resp: COMMON NORMALS: normal respiratory effort, no retractions, no use of accessory muscles and clear to auscultation bilaterally AUSCULTATION: clear to auscultation bilaterally Cardio: COMMON NORMALS: no JVD, regular rate, regular rhythm and no murmurs RATE: regular rate RHYTHM: regular rhythm GI: COMMON NORMALS: soft to palpation and no hepatosplenomegaly AUSCULTATION: Yes normoactive bowel sounds PALPATION: Yes soft, No tender, No guarding and Yes no hepatosplenomegaly Extremity: COMMON NORMALS: normal to inspection, normal capillary refill, no clubbing, cyanosis or edema, no calf tenderness and no pedal edema Neuro: SENSORIUM/ORIENTATION: Yes oriented to person, Yes oriented to place and Yes oriented to time Skin: COMMON NORMALS: no rashes or lesions noted GENERAL SKIN EXAM: no rashes or lesions noted Course Vital Signs: Vital signs: Vital Signs Temperature 97.9 F 12/18/19 10:37 Pulse Rate 86 12/18/19 14:10 Respiratory Rate 17 12/18/19 14:10 Blood Pressure 125/65 12/18/19 14:10 Pulse Oximetry 97 12/18/19 14:10 MDM - Fall MDM Narrative: Medical decision making narrative: Plan x-ray and CT are unremarkable. There is a question of thoracic fracture on plain film but this was negative on CT. Encouraged anti-inflammatories. Discharge Plan Discharge Patient Disposition: Home, Self-Care Clinical Impression: Acute thoracic back pain, Fall Condition: Stable Prescriptions: New diclofenac sodium 75 mg tablet,delayed release (DR/EC) 75 mg PO Q12H PRN (Reason: pain) Qty: 20 RF: 0 No Action albuterol sulfate [Ventolin HFA] 90 mcg/actuation HFA aerosol inhaler 2 puff INHALATION Q6H PRN (Reason: Shortness Of Breath Or Wheezing) Qty: 8.5 RF: 1 gabapentin 300 mg capsule 300 mg PO TID MDD 3 Qty: 90 RF: 0 metformin 500 mg tablet 500 mg PO BID Qty: 180 RF: 1 cyclobenzaprine 10 mg tablet 10 mg PO TID Qty: 270 RF: 1 atenolol 25 mg tablet 25 mg PO BID Qty: 180 RF: 1 tramadol 50 mg tablet 50 mg PO TID RF: 0 omeprazole 40 mg capsule,delayed release(DR/EC) 40 mg PO DAILY Qty: 90 RF: 0 dulaglutide 1.5 mg/0.5 mL pen injector 1.5 mg SUBCUT Q7D Qty: 2 RF: 0 multivitamin [Multiple Vitamins] Tablet 1 tab PO DAILY RF: 0 spironolactone 25 mg tablet 25 mg PO DAILY RF: 0 citalopram 20 mg tablet 20 mg PO DAILY RF: 0 lisinopril-hydrochlorothiazide 20-25 mg tablet 1 tab PO DAILY RF: 0 Discharge Orders: Discharge Order (Routine); Ordered 12/18/19 Ordered By: Selvin Mann Referrals: Celina Ruiz DO [Primary Care Provider] - Discharge Diet: Usual diet Discharge Activity: Resume usual activity Activity Restrictions/Additional Instructions: Follow-up with your primary care doctor if you do not continue to improve Discharge Date/Time: 12/18/19 14:10 Coding Level of Care Code ED Dramatic Teacher for Leonela Escobedo
[2019-12-18 11:36] VITALS: BP 115/70; RESP 18; O2SAT 97
--- NOTE | 2019-12-18 11:39 | XRR_ITS ---
PROCEDURE INFORMATION: Exam: XR Lumbosacral Spine, 2 or 3 Views Exam date and time: 12/18/2019 12:21 PM Age: 34 years old Clinical indication: Low back pain; Additional info: Fall pain TECHNIQUE: Imaging protocol: XR of the lumbosacral spine, 2 or 3 views. COMPARISON: CT abdomen pelvis con [id number] 12/04/2019 9:02 AM FINDINGS: Vertebrae: Mild degenerative disc disease reflected as a decrease in disc space height and anterior endplate osteophytosis. Most pronounced L5-S1 No spondylolisthesis No pars defect. No fracture. Soft tissues: Normal. XR/XR lumbar spine 2-3V* [id number] IMPRESSION: Mild degenerative disc disease.
--- NOTE | 2019-12-18 11:39 | XRR_ITS ---
PROCEDURE INFORMATION: Exam: XR Thoracic Spine, 3 Views Exam date and time: 12/18/2019 12:19 PM Age: 34 years old Clinical indication: Pain in thoracic spine; Additional info: Fall pain TECHNIQUE: Imaging protocol: XR of the thoracic spine, 3 views. COMPARISON: No relevant prior studies available. FINDINGS: Vertebrae: alignment is normal. Facets appear normal Mild compression fracture involving the anterior column of T12 suggested. Other bones/joints: Visualized ribs unremarkable Soft tissues: Normal. XR/XR thoracic spine 3V* [id number] IMPRESSION: Mild compression fracture involving the anterior column of T12 suggested. Consider CT if indicated
[2019-12-18] MEDS: ketorolac 60 mg/2 mL INJ IM (11:46)
[2019-12-18 11:52] VITALS: BP 115/70; PULSE 93; RESP 18; O2SAT 95
--- NOTE | 2019-12-18 12:47 | CTR_ITS ---
PROCEDURE INFORMATION: Exam: CT Thoracic Spine Without Contrast Exam date and time: 12/18/2019 12:49 PM Age: 34 years old Clinical indication: Injury or trauma; Fall; Initial encounter; Blunt trauma (contusions or hematomas); Additional info: Back pain after fall TECHNIQUE: Imaging protocol: Computed tomography images of the thoracic spine without contrast. Total DLP: 2354.49 mGy-cm Radiation optimization: All CT scans at this facility use at least one of these dose optimization techniques: automated exposure control; mA and/or kV adjustment per patient size (includes targeted exams where dose is matched to clinical indication); or iterative reconstruction. COMPARISON: CR XR thoracic spine 3V* [id number] 12/18/2019 12:[address] abdomen and pelvis 12/04/2019. FINDINGS: Vertebrae: Slight anterior wedging of the T11 vertebral body which appears chronic and was present on recent prior 12/04/2019 CT abdomen and pelvis study. T12 appears normal. No acute fracture evident. Mild mid and lower thoracic spine degenerative disc changes with mild endplate sclerosis, small degenerative Schmorl's nodes and vertebral body spurring. No central canal stenosis evident. Soft tissues: Unremarkable. CT/CT thoracic spin wo con* [id number] IMPRESSION: No acute findings. Radiation Dose CTDIVOL = (mGy): DLP = 2354.49 (mGy-cm)
[2019-12-18] MEDS: acetaminophen 500 mg Tablet 1000 MG PO (13:22)
[2019-12-18 14:10] VITALS: BP 125/65; PULSE 86; RESP 17; O2SAT 97
== END 2019-12-18 14:10 | disposition home or self-care (01) ==
PROVIDERS: Emergency Provider Family Medicine; Family Provider Family Medicine; PCP Family Medicine
DX: M54.6 Pain in thoracic spine (principal); M48.04 Spinal stenosis, thoracic region; I10 Essential (primary) hypertension; E11.9 Type 2 diabetes mellitus without complications; K21.9 Gastro-esophageal reflux disease without esophagitis; E66.01 Morbid (severe) obesity due to excess calories; Z68.44 Body mass index [BMI] 60.0-69.9, adult; J45.909 Unspecified asthma, uncomplicated; Z87.891 Personal history of nicotine dependence
CPT/HCPCS: 12345; 72072; 72100; 72128; 96372; 99282; 99283; J1885

== ENCOUNTER 2019-12-27 18:01 | Emergency (ER) | payer MEDICARE, MEDICAID, SELFPAY ==
[2019-12-27 18:05] VITALS: BP 169/85; PULSE 96; RESP 18; TEMP 36.7; O2SAT 95; BMI 65.9
== END 2019-12-27 18:57 | disposition left against medical advice (07) ==
LOC: ER 18:10
PROVIDERS: Emergency Provider Nurse Practitioner Family; Family Provider Family Medicine; PCP Family Medicine
DX: G89.29 Other chronic pain (principal); M54.6 Pain in thoracic spine; Z79.84 Long term (current) use of oral hypoglycemic drugs; F17.210 Nicotine dependence, cigarettes, uncomplicated
CPT/HCPCS: 12345; 36415; 80053; 81003; 81025; 85025; 99281; 99282; A9270

== ENCOUNTER 2019-12-27 19:14 | Emergency (ER) | payer MEDICARE, MEDICAID, SELFPAY ==
[2019-12-27 19:17] VITALS: BP 149/106; PULSE 99; RESP 16; TEMP 37; O2SAT 95; BMI 65.9
--- NOTE | 2019-12-27 19:41 | ED_ITS ---
HPI - Back Pain/Injury General: Chief Complaint: Back Pain/Injury Stated Complaint: neck and back pain Time Seen by Provider: 12/27/19 19:19 Source: patient Mode of arrival: ambulatory Limitations: no limitations History of Present Illness: HPI Narrative: Patient is a 34-year-old female who presents to ED today with complaints of mid back pain and kidney pain that began today. Patient states she is just worried because she was recently admitted to the hospital for renal failure. Patient does have a history of chronic back pain to this area and recently sustained a fall injuring this area. Patient states she is just worried that it could be her kidneys again. MD elicited complaint: back pain Pertinent past history: prior back pain Onset (ago): hour(s) Timing: constant Similar Symptoms Previously: Yes Location: thoracic spine Radiation: none Exacerbating factors: none Relieving factors: none Associated symptoms: Reports no associated symptoms; Deny abdominal pain, chills, dysuria, fatigue, fever(s), nausea, syncope, urinary urgency or vomiting Work related injury: No Review of Systems Const: Denies: fever, chills, body aches or fatigue Card: Denies: chest pain, palpitations, irregular heart rhythm, edema, lightheadedness, syncope or pre-syncope Resp: Denies: shortness of breath, productive cough, non-productive cough or chest congestion GI: Denies: abdominal pain, nausea, vomiting, diarrhea or constipation : Reports: flank pain; Denies: difficulty urinating, painful urination, urinary frequency, urinary urgency or urinary hesitancy Musc: Reports: back pain (chronically ); Denies: neck pain, extremity pain, extremity swelling, joint pain or joint swelling Neuro: Denies: headache, numbness in extremities, weakness in extremities or changes in sensation [facility] ED PFSH: Social History Smoking and tobacco status: current every day smoker cigarettes Packs smoked per day: 1 Alcohol intake: never Household members: spouse and family Marital status: Current occupational status: disabled Current occupation: disabled History of recent travel: No Physical Exam Const: COMMON NORMALS: no apparent distress, oriented x3, no limitations and alert NUTRITIONAL APPEARANCE: obese morbidly obese HENMT: COMMON NORMALS: normocephalic and head/scalp atraumatic HEAD & SCALP: normocephalic and atraumatic Resp: COMMON NORMALS: normal respiratory effort and clear to auscultation bilaterally AUSCULTATION: clear to auscultation bilaterally Cardio: COMMON NORMALS: regular rate and regular rhythm RATE: regular rate RHYTHM: regular rhythm GI: COMMON NORMALS: normal to inspection, nondistended, normoactive bowel sounds, soft to palpation, non-tender, no hepatosplenomegaly and no masses PALPATION: Yes soft and Yes no hepatosplenomegaly : BLADDER/KIDNEY EXAM: Yes CVA tenderness (mild) Back/Pelvis: GENERAL BACK: Yes CVA tenderness (mild) CVA tenderness: bilateral THORACIC SPINE/UPPER BACK: Yes thoracic spinal tenderness and Yes paraspinal muscle tenderness Extremity: COMMON NORMALS: normal to inspection Neuro: COMMON NORMALS: oriented x3, moves all extremities, no focal motor deficits, no sensory deficits noted and gait normal SENSORIUM/ORIENTATION: Yes alert Skin: COMMON NORMALS: no rashes or lesions noted GENERAL SKIN EXAM: no rashes or lesions noted Course Vital Signs: Vital signs: Vital Signs Temperature 98.6 F 12/27/19 19:17 Pulse Rate 99 12/27/19 19:17 Respiratory Rate 16 12/27/19 19:17 Blood Pressure 149/106 12/27/19 19:17 Pulse Oximetry 95 12/27/19 19:17 MDM - Back Pain/Injury MDM Narrative: Medical decision making narrative: pts BUN/Cr normal today; UA w/o infection; she can continue her current home meds she receives through pain management for her back pain. Lab Data: Labs: Lab Results 12/27/19 12/27/19 12/27/19 Range/Units 19:29 19:29 19:38 WBC 13.5 H (4.0-10.0) 10^3/ uL RBC 4.52 (4.1-5.3) 10^6/u L Hgb 13.1 (11.5-15.3) g/dL Hct 41.5 (37.0-47.0) % MCV 91.8 (81-99) fL MCH 29.0 (28.0-34.0) pg MCHC 31.6 (30.0-36.0) g/dL RDW 13.7 (12.1-15.1) % Plt Count 384 (130-400) 10^3/c mm MPV 11.1 H (7.4-10.4) fL Neut % (Auto) 76.1 % Lymph % (Auto) 14.5 % Cloud % (Auto) 6.4 % Eos % (Auto) 1.6 % Baso % (Auto) 0.4 % Neut # (Auto) 10.3 H (1.8-7.7) 10^3/u L Lymph # (Auto) 2.0 (0.8-4.8) 10^3/u L Cloud # (Auto) 0.9 (0.2-0.9) 10^3/u L Eos # (Auto) 0.2 (0.0-0.8) 10^3/u L Baso # (Auto) 0.1 (0.0-0.1) 10^3/u L Nucleated RBC % (a uto) 0 % Nucleated RBCs # 0.0 /100WBC Sodium (136-145) mmol/L Potassium (3.5-5.1) mmol/L Chloride (98-107) mmol/L Carbon Dioxide (22-29) mmol/L Anion Gap (5-19) BUN (6-20) mg/dL Creatinine (0.5-0.9) mg/dL GFR Calculation (90-130) mL/min Glucose (65-115) mg/dL Calculated Osmolal ity (285-295) mOsm/k g Calcium (8.5-10.5) mg/dL Total Bilirubin (0.15-1.2) mg/dL AST (0-32) U/L ALT (0-33) U/L Alkaline Phosphata se (35-105) IU/L Total Protein (6.6-8.7) g/dL Albumin (3.5-5.2) g/dL Globulin (1.3-4.6) g/dL Urine Color Yellow (Yellow) Urine Appearance Clear (CLEAR) Urine pH 5 (5-7) Ur Specific Gravit y 1.020 (1.005-1.030) Urine Protein Neg (Negative) Urine Glucose (UA) Norm (Normal) Urine Ketones Negative (Negative) Urine Blood Neg (Negative) Urine Nitrate Negative (Negative) Urine Bilirubin Neg (NEGATIVE) Urine Urobilinogen 1 H (Negative) mg/dL Ur Leukocyte Maame ase Negative (Negative) Urine HCG, Qual Negative (Negative) 12/27/19 Range/Units 19:38 WBC (4.0-10.0) 10^3/ uL RBC (4.1-5.3) 10^6/u L Hgb (11.5-15.3) g/dL Hct (37.0-47.0) % MCV (81-99) fL MCH (28.0-34.0) pg MCHC (30.0-36.0) g/dL RDW (12.1-15.1) % Plt Count (130-400) 10^3/c mm MPV (7.4-10.4) fL Neut % (Auto) % Lymph % (Auto) % Cloud % (Auto) % Eos % (Auto) % Baso % (Auto) % Neut # (Auto) (1.8-7.7) 10^3/u L Lymph # (Auto) (0.8-4.8) 10^3/u L Cloud # (Auto) (0.2-0.9) 10^3/u L Eos # (Auto) (0.0-0.8) 10^3/u L Baso # (Auto) (0.0-0.1) 10^3/u L Nucleated RBC % (a uto) % Nucleated RBCs # /100WBC Sodium 137 (136-145) mmol/L Potassium 4.2 (3.5-5.1) mmol/L Chloride 98 (98-107) mmol/L Carbon Dioxide 25 (22-29) mmol/L Anion Gap 18.2 (5-19) BUN 20 (6-20) mg/dL Creatinine 0.9 (0.5-0.9) mg/dL GFR Calculation 72.6 L (90-130) mL/min Glucose 155 H (65-115) mg/dL Calculated Osmolal ity 284 L (285-295) mOsm/k g Calcium 9.9 (8.5-10.5) mg/dL Total Bilirubin 0.4 (0.15-1.2) mg/dL AST 30 (0-32) U/L ALT 108 H (0-33) U/L Alkaline Phosphata se 128 H (35-105) IU/L Total Protein 7.5 (6.6-8.7) g/dL Albumin 4.1 (3.5-5.2) g/dL Globulin 3.4 (1.3-4.6) g/dL Urine Color (Yellow) Urine Appearance (CLEAR) Urine pH (5-7) Ur Specific Gravit y (1.005-1.030) Urine Protein (Negative) Urine Glucose (UA) (Normal) Urine Ketones (Negative) Urine Blood (Negative) Urine Nitrate (Negative) Urine Bilirubin (NEGATIVE) Urine Urobilinogen (Negative) mg/dL Ur Leukocyte Maame ase (Negative) Urine HCG, Qual (Negative) Discharge Plan Discharge Patient Disposition: Home, Self-Care Clinical Impression: Chronic back pain Qualifiers: Back pain location: thoracic back pain Back pain laterality: midline Qualified Code(s): M54.6 - Pain in thoracic spine Condition: Stable Prescriptions: No Action albuterol sulfate [Ventolin HFA] 90 mcg/actuation HFA aerosol inhaler 2 puff INHALATION Q6H PRN (Reason: Shortness Of Breath Or Wheezing) Qty: 8.5 RF: 1 metformin 500 mg tablet 500 mg PO BID Qty: 180 RF: 1 atenolol 25 mg tablet 25 mg PO BID Qty: 180 RF: 1 gabapentin 300 mg capsule 300 mg PO TID MDD 3 Qty: 90 RF: 0 tramadol 50 mg tablet 50 mg PO TID PRN (Reason: chronic pain) Qty: 90 RF: 0 omeprazole 40 mg capsule,delayed release(DR/EC) 40 mg PO DAILY Qty: 90 RF: 0 dulaglutide 1.5 mg/0.5 mL pen injector 1.5 mg SUBCUT Q7D Qty: 2 RF: 0 multivitamin [Multiple Vitamins] Tablet 1 tab PO DAILY RF: 0 diclofenac sodium 75 mg tablet,delayed release (DR/EC) 75 mg PO Q12H PRN (Reason: pain) Qty: 20 RF: 0 spironolactone 25 mg tablet 25 mg PO DAILY RF: 0 citalopram 20 mg tablet 20 mg PO DAILY RF: 0 lisinopril-hydrochlorothiazide 20-25 mg tablet 1 tab PO DAILY RF: 0 Discharge Orders: Discharge Order (Routine); Ordered 12/27/19 Ordered By: Sissy Luke Referrals: Celina Ruiz DO [Primary Care Provider] - Coding Level of Care Code ED Remote Ruby On Rails Developer for Chg Fwd Exam Comprehensive
[2019-12-27 19:53] LABS: Basophils # 0.1 10^3/uL (0.0-0.1); Basophils % 0.4 %; Eosinophils # 0.2 10^3/uL (0.0-0.8); Eosinophils % 1.6 %; Hematocrit 41.5 % (37.0-47.0); Hemoglobin 13.1 g/dL (11.5-15.3); Lymphocytes % 14.5 %; Mean Corpuscular HGB Conc 31.6 g/dL (30.0-36.0); Mean Corpuscular Volume 91.8 fL (81-99); Mean Platelet Volume 11.1 fL (7.4-10.4); Monocytes # 0.9 10^3/uL (0.2-0.9); Monocytes % 6.4 %; Neutrophils # 10.3 10^3/uL (1.8-7.7); Neutrophils % 76.1 %; Nucleated Red Blood Cells % 0 %; Platelet Count 384 10^3/cmm (130-400); Red Blood Count 4.52 10^6/uL (4.1-5.3); Red Cell Distribution Width 13.7 % (12.1-15.1); White Blood Count 13.5 10^3/uL (4.0-10.0)
[2019-12-27 19:58] LABS: Add Urine Microscopic? NO
[2019-12-27 20:07] LABS: Alanine Aminotransferase 108 U/L (0-33); Albumin Level 4.1 g/dL (3.5-5.2); Alkaline Phosphatase 128 IU/L (35-105); Anion Gap 18.2 (5-19); Aspartate Amino Transferase 30 U/L (0-32); Blood Urea Nitrogen 20 mg/dL (6-20); Calcium 9.9 mg/dL (8.5-10.5); Carbon Dioxide 25 mmol/L (22-29); Chloride 98 mmol/L (98-107); Globulin 3.4 g/dL (1.3-4.6); Glomerular Filtration Rate 72.6 mL/min (90-130); Glucose 155 mg/dL (65-115); Osmolality Calculated 284 mOsm/kg (285-295); Potassium 4.2 mmol/L (3.5-5.1); Sodium 137 mmol/L (136-145); Total Bilirubin 0.4 mg/dL (0.15-1.2); Total Protein 7.5 g/dL (6.6-8.7)
[2019-12-27 20:12] LABS: Bilirubin Urine Neg (NEGATIVE); Blood Urine Neg (Negative); Glucose Urine UA Norm (Normal); Ketones Urine Negative (Negative); Leukocyte Esterase Urine Negative (Negative); Nitrate Urine Negative (Negative); Protein Urine Neg (Negative); Urine Appearance Clear (CLEAR); Urine Color Yellow (Yellow); Urobilinogen Urine 1 mg/dL (Negative); pH Urine 5 (5-7)
[2019-12-27 20:52] VITALS: RESP 18
== END 2019-12-27 20:50 | disposition home or self-care (01) ==
PROVIDERS: Emergency Provider Physician Assistant; Family Provider Family Medicine; PCP Family Medicine
DX: G89.29 Other chronic pain (principal); M54.6 Pain in thoracic spine; Z79.84 Long term (current) use of oral hypoglycemic drugs; F17.210 Nicotine dependence, cigarettes, uncomplicated
CPT/HCPCS: 12345; 36415; 80053; 81003; 81025; 85025; 99281; 99282; A9270

== ENCOUNTER 2020-01-16 16:34 | Emergency (ER) | payer MEDICARE, MEDICAID, SELFPAY ==
[2020-01-16 16:40] VITALS: BP 152/88; PULSE 93; RESP 18; TEMP 36.5; O2SAT 97; BMI 62.4
--- NOTE | 2020-01-16 17:07 | ED_ITS ---
HPI - Back Pain/Injury General: Chief Complaint: Back Pain/Injury Stated Complaint: BACK INJURY/BACK PAIN Time Seen by Provider: 01/16/20 17:00 Source: patient Mode of arrival: ambulatory Limitations: no limitations History of Present Illness: HPI Narrative: 34-year-old female with a history of chronic back pain states she was lifting a safe and strained her thoracic back. Patient states she had pain immediately. She denies any bowel or bladder incontinence. MD elicited complaint: back pain and back injury Pertinent past history: prior back pain Onset (ago): hour(s) Timing: constant Severity: severe Similar Symptoms Previously: Yes Quality: sharp Location: thoracic spine Radiation: none Exacerbating factors: movement Relieving factors: immobilization Context: while lifting Associated symptoms: Reports no associated symptoms; Deny abdominal pain, chills, dysuria, fever(s), nausea or vomiting Review of Systems Const: Denies: fever, chills, body aches or change in appetite Eyes: Denies: blurry vision or eye discomfort ENMT: Denies: throat pain or dental pain Card: Denies: chest pain Resp: Denies: shortness of breath GI: Denies: abdominal pain, nausea, vomiting or diarrhea : Denies: painful urination Musc: Reports: back pain; Denies: neck pain Skin/Breast: Denies: rash Neuro: Denies: headache Psych: Denies: depression Sunday/Lymph: Denies: easy bruising All/Imm: Denies: hives [facility] ED PFSH: Social History Smoking and tobacco status: current every day smoker cigarettes Packs smoked per day: 1 Alcohol intake: never Household members: spouse and family Marital status: Current occupational status: disabled Current occupation: disabled History of recent travel: No Female Reproductive History: Date of last menstrual period: 01/09/20 Physical Exam Const: COMMON NORMALS: no apparent distress, oriented x3 and healthy appearing HENMT: COMMON NORMALS: normocephalic and head/scalp atraumatic HEAD & SCALP: normocephalic and atraumatic Eye: COMMON NORMALS: PERRL and EOMs intact bilaterally PUPIL: Yes PERRL Neck/C-Spine: COMMON NORMALS: full ROM and supple Chest: COMMONS NORMALS: inspection of chest normal and palpation of chest normal Resp: COMMON NORMALS: normal respiratory effort, no retractions, no use of accessory muscles and clear to auscultation bilaterally AUSCULTATION: clear to auscultation bilaterally Cardio: COMMON NORMALS: regular rate, regular rhythm and no murmurs RATE: regular rate RHYTHM: regular rhythm GI: COMMON NORMALS: normal to inspection, nondistended, normoactive bowel sounds, soft to palpation, non-tender and no masses PALPATION: Yes soft Back/Pelvis: OTHER: Paraspinal tenderness along thoracic spine with no midline tenderness Extremity: COMMON NORMALS: normal to inspection and full ROM Neuro: COMMON NORMALS: oriented x3, moves all extremities and no focal motor deficits Psych: COMMON NORMALS: mental status grossly normal, thought process normal and cooperative THOUGHT PROCESS: normal thought process Skin: COMMON NORMALS: no rashes or lesions noted and no wounds GENERAL SKIN EXAM: no rashes or lesions noted Course Vital Signs: Vital signs: Vital Signs Temperature 97.7 F 01/16/20 16:40 Pulse Rate 93 01/16/20 16:40 Respiratory Rate 18 01/16/20 16:40 Blood Pressure 152/88 01/16/20 16:40 Pulse Oximetry 97 01/16/20 16:40 MDM - Back Pain/Injury MDM Narrative: Medical decision making narrative: Patient presents here with back pain that is chronic in nature. She has an acute injury. Will prescribe patient Naprosyn and Robaxin she is stable for discharge. She has no signs of any major injury or epidural abscess. Discharge Plan Discharge Patient Disposition: Home, Self-Care Clinical Impression: Thoracic back pain Qualifiers: Chronicity: acute Back pain laterality: bilateral Qualified Code(s): M54.6 - Pain in thoracic spine Condition: Stable Prescriptions: No Action albuterol sulfate [Ventolin HFA] 90 mcg/actuation HFA aerosol inhaler 2 puff INHALATION Q6H PRN (Reason: Shortness Of Breath Or Wheezing) Qty: 8.5 RF: 1 metformin 500 mg tablet 500 mg PO BID Qty: 180 RF: 1 atenolol 25 mg tablet 25 mg PO BID Qty: 180 RF: 1 gabapentin 300 mg capsule 300 mg PO TID MDD 3 Qty: 90 RF: 0 tramadol 50 mg tablet 50 mg PO TID PRN (Reason: chronic pain) Qty: 90 RF: 0 omeprazole 40 mg capsule,delayed release(DR/EC) 40 mg PO DAILY Qty: 90 RF: 0 dulaglutide 1.5 mg/0.5 mL pen injector 1.5 mg SUBCUT Q7D Qty: 2 RF: 0 spironolactone 25 mg tablet 25 mg PO DAILY RF: 0 citalopram 20 mg tablet 20 mg PO DAILY RF: 0 lisinopril-hydrochlorothiazide 20-25 mg tablet 1 tab PO DAILY RF: 0 Discharge Orders: Discharge Order (Routine); Ordered 01/16/20 Ordered By: Kat Yang Referrals: Celina Ruiz DO [Primary Care Provider] - 1-3 days Discharge Diet: Advance as tolerated Discharge Activity: Resume usual activity Patient Instructions: Low Back Strain (ED) Coding Level of Care Code ED Radio Presenter for Leonela Escobedo
[2020-01-16] MEDS: ketorolac 60 mg/2 mL INJ IM (17:16)
[2020-01-16 17:20] VITALS: BP 149/87; PULSE 91
== END 2020-01-16 17:22 | disposition home or self-care (01) ==
PROVIDERS: Emergency Provider Emergency Medicine; PCP Family Medicine
DX: M54.6 Pain in thoracic spine (principal); Z79.84 Long term (current) use of oral hypoglycemic drugs; F17.210 Nicotine dependence, cigarettes, uncomplicated
CPT/HCPCS: 12345; 96372; 99281; 99283; J1885

== ENCOUNTER → 2020-01-18 11:57 | Outpatient (BNVA) | payer MEDICARE, MEDICAID, SELFPAY | PROVIDERS: PCP Family Medicine; Visit Provider Anesthesiology Pain Medicine | DX: G89.29 Other chronic pain (principal); M48.04 Spinal stenosis, thoracic region; M54.9 Dorsalgia, unspecified; M25.561 Pain in right knee; M25.562 Pain in left knee; M62.838 Other muscle spasm; F17.219 Nicotine dependence, cigarettes, with unspecified nicotine-induced disorders; Z79.891 Long term (current) use of opiate analgesic | CPT/HCPCS: 99214 ==

== ENCOUNTER → 2020-01-19 09:03 | Outpatient (BNVA) | payer MEDICARE, MEDICAID, SELFPAY | PROVIDERS: PCP Family Medicine; Visit Provider Family Medicine | DX: E11.9 Type 2 diabetes mellitus without complications (principal); B35.3 Tinea pedis; I10 Essential (primary) hypertension; F17.219 Nicotine dependence, cigarettes, with unspecified nicotine-induced disorders | CPT/HCPCS: 80061; 82044; 83036 ==

== ENCOUNTER 2020-01-21 08:03 | Outpatient (CLI) | payer MEDICARE, MEDICAID, SELFPAY ==
--- NOTE | 2020-01-21 08:45 | MR_ITS ---
WS: [id number] MRI THORACIC SPINE WITHOUT CONTRAST TECHNIQUE: Sagittal T1, T2 and STIR imaging. Axial T2 imaging. Noncontrast imaging obtained. CLINICAL INFORMATION: Thoracic stenosis COMPARISON: CT thoracic December 18, 2019 FINDINGS: Mild thoracic curve. No acute compression fractures. Small disc protrusions in the mid and lower thor acic spine with moderate central canal stenosis at T10-11 with a left pericentral protrusion and mode rate central canal stenosis. Slight impingement on the thoracic cord. Mild left foraminal narrowing. Moderate facet arthropathy. Additional small right pericentral disc protrusion at T8-T9 with mild central canal stenosis. Small a mount of signal abnormality in the thoracic cord at T8-T9 eccentric to the right likely due to chroni c myelomalacia. Cord signal is otherwise normal. Mild spondylitic changes cervical spine seen on the adhesion tester imaging. Normal caliber thoracic aorta. Adrenal glands are normal. Moderate facet arthropathy i n the lower thoracic spine. Mild chronic anterior wedging at T11 is unchanged. Normal vertebral body height at T12. MR/MR thoracic spin wo con* [id number] IMPRESSION: 1. Mild thoracic curve. No acute compression fractures. 2. Moderate central canal stenosis at T10-11 with a central disc protrusion an d moderate facet arthropathy. Mild left foraminal narrowing at this level. Slig ht impingement on the thoracic cord. 3. Small right pericentral protrusion at T8-T9 with slight impingement on the right ventral thoracic cord. Mild central canal stenosis. 4. T2 signal abnormality in the thoracic cord at the T8-T9 level likely due to chronic myelomalacia. This extends over approximately 1 vertebral body length. This can be followed up with gadolinium to ensure no enhancement. Cord signal otherwise normal. 5. Moderate facet arthropathy lower thoracic spine. 6. Mild spondylitic changes cervical spine seen on the adhesion tester imaging.
--- NOTE | 2020-01-21 09:30 | XR_ITS ---
WS: [id number] THORACIC SPINE TECHNIQUE: 3 views of the thoracic spine CLINICAL INFORMATION: Thoracic back pain COMPARISON: December 18, 2019 FINDINGS: Mild thoracic curve convex left. Mild chronic anterior wedging lower thoracic spine is unchanged. No new compression fractures. Stable anterior wedging with mild compression T11 vertebral body XR/XR thoracic spine 3V* [id number] IMPRESSION: Stable anterior wedging with mild compression T11 vertebral body
== END 2020-01-21 08:04 | disposition home or self-care (01) ==
LOC: RADWPI 08:05
PROVIDERS: PCP Family Medicine; Visit Provider Licensed Practical Nurse
DX: M48.04 Spinal stenosis, thoracic region (principal); M47.894 Other spondylosis, thoracic region; M51.34 Other intervertebral disc degeneration, thoracic region; M47.814 Spondylosis without myelopathy or radiculopathy, thoracic region
CPT/HCPCS: 72072; 72146

== ENCOUNTER 2020-02-04 21:02 | Emergency (ER) | payer MEDICARE, MEDICAID, SELFPAY ==
[2020-02-04 21:06] VITALS: BP 155/95; PULSE 107; RESP 24; TEMP 35.9; O2SAT 95; BMI 56.2
--- NOTE | 2020-02-04 21:25 | ED_ITS ---
HPI - Skin/Abscess/Foreign Bdy General: Chief complaint: Skin/Abscess/Foreign Body Stated complaint: abscess Time Seen by Provider: 02/04/20 21:17 Source: patient Mode of arrival: ambulatory Limitations: no limitations History of Present Illness: HPI narrative: Patient comes in with some tender lesions to the bilateral perineum. Patient reports for the last week she is noticed areas on each side of the perineum that are red and tender. Patient appears well. Patient appears in no pain at rest. 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 Morbid obesity with BMI of 60.0-69.9, adult Muscle spasms of both lower extremities Pain management contract signed Prolonged depression Spinal stenosis, thoracic region Surgical History History of cholecystectomy Family History Father CAD (coronary artery disease) Diabetes Hypertension Family/Other Cancer Mother Diabetes Hypertension Social History Smoking and tobacco status: current every day smoker cigarettes Packs smoked per day: 1 Alcohol intake: never Household members: spouse and family Marital status: Current occupational status: disabled Current occupation: disabled History of recent travel: No Female Reproductive History: Date of last menstrual period: 01/09/20 Physical Exam Const: COMMON NORMALS: no acute distress and patient oriented x3 GENERAL APPEARANCE: cooperative HENMT: COMMON NORMALS: normocephalic, TM's normal bilaterally and Normal external nose present HEAD & SCALP: normal to inspection and normocephalic NOSE: Normal external nose present TYMPANIC MEMBRANE: TM's normal bilaterally MOUTH: Normal oral and palatal mucosa present THROAT: posterior oropharynx normal Eye: GENERAL EYE: appearance normal, both eyes and all related structures Neck/C-Spine: COMMON NORMALS: full ROM Lymph: LYMPHATIC: no lymphadenopathy noted Chest: COMMONS NORMALS: normal inspection of the chest Resp: COMMON NORMALS: normal respiratory effort EFFORT & INSPECTION: Yes able to speak in complete sentences Cardio: COMMON NORMALS: regular rate and regular rhythm RATE: regular rate RHYTHM: regular rhythm GI: COMMON NORMALS: non-tender : COMMON NORMALS: Yes no CVA tenderness BLADDER/KIDNEY EXAM: Yes no CVA tenderness Back/Pelvis: COMMON NORMALS: no CVA tenderness and thoracic and lumbar spine normal to inspection Extremity: COMMON NORMALS: normal to inspection Neuro: COMMON NORMALS: patient oriented x3 and moves all extremities Psych: COMMON NORMALS: mental status grossly normal and cooperative Skin: NARRATIVE SKIN EXAM: Patient has 2 areas of tender erythematous small lesions approximately centimeter apiece. No significant surrounding erythema is noted. Patient has shaved perineum and also has several little areas of inflamed hair follicles. Course Vital Signs: Vital signs: Vital Signs Temperature 96.6 F L 02/04/20 21:06 Pulse Rate 107 H 02/04/20 21:06 Respiratory Rate 24 H 02/04/20 21:06 Blood Pressure 155/95 02/04/20 21:06 Pulse Oximetry 95 02/04/20 21:06 MDM - Skin/Abscess/Foreign Bdy MDM Narrative: Medical decision making narrative: Patient comes in for possible abscess to the bilateral perineum. On exam we note 2 areas 1 on the right and 1 on the left and similar distancing from the groin. Differential diagnosis includes but not limited to folliculitis, abscess, cellulitis, necrotizing fasciitis. Exam notes of mild follicular colitis. Recommend antibiotic and avoidance of shaving to the area at this time. Patient reported understanding and agreed to plan. Discharge Plan Discharge Patient Disposition: Home, Self-Care Clinical Impression: Folliculitis of perineum Condition: Stable Prescriptions: New Bactrim DS 800-160 mg tablet 1 tab PO BID 10 Days Qty: 20 RF: 0 No Action albuterol sulfate [Ventolin HFA] 90 mcg/actuation HFA aerosol inhaler 2 puff INHALATION Q6H PRN (Reason: Shortness Of Breath Or Wheezing) Qty: 8.5 RF: 1 terbinafine HCl 250 mg tablet 250 mg PO DAILY Qty: 14 RF: 0 metformin 500 mg tablet 500 mg PO BID Qty: 180 RF: 1 atenolol 25 mg tablet 25 mg PO BID Qty: 180 RF: 1 gabapentin 300 mg capsule 300 mg PO TID MDD 3 Qty: 90 RF: 0 tramadol 50 mg tablet 50 mg PO TID PRN (Reason: chronic pain) Qty: 90 RF: 0 omeprazole 40 mg capsule,delayed release(DR/EC) 40 mg PO DAILY Qty: 90 RF: 0 dulaglutide 1.5 mg/0.5 mL pen injector 1.5 mg SUBCUT Q7D Qty: 2 RF: 0 atorvastatin 40 mg tablet 40 mg PO DAILY Qty: 45 RF: 0 spironolactone 25 mg tablet 25 mg PO DAILY RF: 0 citalopram 20 mg tablet 20 mg PO DAILY RF: 0 lisinopril-hydrochlorothiazide 20-25 mg tablet 1 tab PO DAILY RF: 0 Discharge Orders: Discharge Order (Routine); Ordered 02/04/20 Ordered By: Herb Nathan Referrals: Celina Ruiz DO [Primary Care Provider] - Discharge Diet: Usual diet Discharge Activity: Increase activity as tolerated Patient Instructions: Folliculitis (ED) Activity Restrictions/Additional Instructions: Drink plenty of water with antibiotics. Soak in warm hot bath for discomfort. Use antibacterial soap. Avoid shaving in the area. Take antibiotics as directed. Follow-up with primary care in 1 week for recheck. Return to the ER for high fever or worsening symptoms. Coding Level of Care Code ED Art Display Maker for Leonela Fwd Exam Comprehensive
== END 2020-02-04 21:43 | disposition home or self-care (01) ==
PROVIDERS: Emergency Provider Nurse Practitioner Family; PCP Family Medicine
DX: L73.8 Other specified follicular disorders (principal); I10 Essential (primary) hypertension; E11.9 Type 2 diabetes mellitus without complications; F17.210 Nicotine dependence, cigarettes, uncomplicated
CPT/HCPCS: 12345; 99281

== ENCOUNTER 2020-02-08 13:43 | Outpatient (CLI) | payer MEDICARE, MEDICAID, SELFPAY ==
--- NOTE | 2020-02-08 13:52 | MR_ITS ---
WS: [id number] MRI THORACIC SPINE with contrast. HISTORY: Thoracic back pain . COMPARISON: 01/21/2020 noncontrast thoracic spine MRI. TECHNIQUE: Multiplanar sequences are performed postcontrast. Postcontrast sequences are negative for enhancing mass. The signal abnormality within the central tho racic cord at the T9 level does not enhance. There is no evidence for discitis or osteomyelitis. MR/MR thoracic spine w con [id number] IMPRESSION: Status post thoracic spine MRI with contrast is negative for enhancing masses. The area of abnormal signal in the thoracic cord at T9 level does not enhance. Most likely an area of myelomalacia.
== END 2020-02-08 13:44 | disposition home or self-care (01) ==
LOC: RADWPI 13:47
PROVIDERS: Family Provider Family Medicine; PCP Family Medicine; Visit Provider Licensed Practical Nurse
DX: M54.6 Pain in thoracic spine (principal)
CPT/HCPCS: 72147; A9579

== ENCOUNTER → 2020-02-15 09:08 | Outpatient (BNVA) | payer MEDICARE, MEDICAID, SELFPAY | PROVIDERS: Family Provider Family Medicine; PCP Family Medicine; Visit Provider Anesthesiology Pain Medicine | DX: G89.29 Other chronic pain (principal); M48.04 Spinal stenosis, thoracic region; M47.814 Spondylosis without myelopathy or radiculopathy, thoracic region; M54.9 Dorsalgia, unspecified; M25.561 Pain in right knee; M25.562 Pain in left knee; M62.838 Other muscle spasm; F17.219 Nicotine dependence, cigarettes, with unspecified nicotine-induced disorders; Z79.891 Long term (current) use of opiate analgesic | CPT/HCPCS: 99214 ==

== ENCOUNTER 2020-02-19 05:02 | Emergency (ER) | payer MEDICARE, MEDICAID, SELFPAY ==
[2020-02-19 05:18] VITALS: BP 166/94; PULSE 84; RESP 22; TEMP 36.6; O2SAT 96; BMI 58.6
--- NOTE | 2020-02-19 05:39 | XRR_ITS ---
PROCEDURE INFORMATION: Exam: XR Lumbosacral Spine, 2 or 3 Views Exam date and time: 02/19/2020 6:05 AM Age: 34 years old Clinical indication: Injury or trauma; Fall; Initial encounter; Blunt trauma (contusions or hematomas); Injury details: Fell out of bed TECHNIQUE: Imaging protocol: XR of the lumbosacral spine, 2 or 3 views. COMPARISON: CT abdomen pelvis con [id number] 12/04/2019 9:02 AM FINDINGS: Vertebrae: A moderate loss of disc height is seen at the L5-S1 level compatible with degenerative disc disease. Soft tissues: Unremarkable. XR/XR lumbar spine 2-3V* [id number] IMPRESSION: There are no acute osseous findings.
[2020-02-19] MEDS: oxyCODONE-APAP 5-325 mg Tablet 2 TAB PO (06:17)
[2020-02-19 06:22] VITALS: BP 158/92; PULSE 88; RESP 16; O2SAT 96
--- NOTE | 2020-02-20 02:58 | W.ED.FALL ---
HPI - Fall General: Chief Complaint: Fall Stated Complaint: FELL OFF BED; BACK/HIP PAIN Time Seen by Provider: 02/19/20 05:24 History of Present Illness: HPI Narrative: 34-year-old female well-known to the ER. She states that she rolled out of bed this morning striking the bed frame on the way down in the floor. She complains of lower lumbar pain. She did not hit her head. No radicular pain into her legs. No loss of bowel or bladder control. MD complaint: fall Onset (ago): hour(s) Fall from: out of bed Fall witnessed: yes, by family Place fall occurred: home Loss of consciousness: None Prolonged down time: no Symptoms prior to fall: none Location of injury: back Associated symptoms-after fall: Denies abdominal pain, chest pain, headache(s), neck pain or vertigo Review of Systems Const: Denies: fever(s) or chills Eyes: Denies: change in vision or blurry vision ENMT: Denies: odynophagia, swelling of lips/tongue, bleeding gums, dental pain, change in hearing, epistaxis, post nasal drip or sinus pain Card: Denies: chest pain, palpitations, irregular heart rhythm, edema, swelling of feet/ankles, dyspnea on exertion or orthopnea Resp: Denies: dyspnea, productive cough, non-productive cough or wheezing GI: Denies: abdominal pain, nausea or vomiting : Denies: dysuria or urinary frequency Musc: Reports: back pain; Denies: neck pain Skin/Breast: Denies: rash, pruritus or erythema Neuro: Denies: headache(s), dizziness or vertigo Psych: Reports: anxiety [facility] ED PFSH: Medical History (Updated 02/19/20 @ 06:15 by Sergio Chu DO) Amenorrhea Asthma Benign essential HTN Bilateral chronic knee pain Bilateral leg edema Diabetes mellitus, without long-term current use of insulin GERD (gastroesophageal reflux disease) jail (current) use of opiate analgesic Morbid obesity with BMI of 60.0-69.9, adult Muscle spasms of both lower extremities Pain management contract signed Prolonged depression Spinal stenosis, thoracic region Surgical History History of cholecystectomy Family History Father CAD (coronary artery disease) Diabetes Hypertension Family/Other Cancer Mother Diabetes Hypertension Social History Smoking and tobacco status: current every day smoker cigarettes Packs smoked per day: 1 Alcohol intake: never Household members: spouse and family Marital status: Current occupational status: disabled Current occupation: disabled History of recent travel: No Female Reproductive History: Date of last menstrual period: 02/17/20 Physical Exam Const: GENERAL APPEARANCE: well developed ORIENTATION/CONSCIOUSNESS: Yes oriented to person, Yes oriented to place and Yes oriented to time HENMT: COMMON NORMALS: normocephalic, external ears normal and Normal external nose present HEAD & SCALP: normocephalic FACE & SINUS: normal facial exam NOSE: Normal external nose present and No nasal discharge present EXTERNAL EAR: Yes external ears normal MOUTH: tongue normal Eye: COMMON NORMALS: Equal, round and reactive pupils present, EOMs intact bilaterally and conjunctivae normal EYELID: eyelids normal CONJUNCTIVA: Yes conjunctivae normal PUPIL: Yes Equal, round and reactive pupils present Neck/C-Spine: GENERAL: No tracheal deviation Chest: COMMONS NORMALS: normal inspection of the chest CHEST: No tenderness Resp: COMMON NORMALS: clear to auscultation bilaterally EFFORT & INSPECTION: No tachypneic, No respiratory distress, No retractions, No uses accessory muscles and No tracheal deviation AUSCULTATION: clear to auscultation bilaterally, no rhonchi, no wheezes and lung sounds not diminished Cardio: COMMON NORMALS: regular rate and regular rhythm RATE: regular rate RHYTHM: regular rhythm HEART SOUNDS: no murmurs PERIPHERAL PULSES: radial pulses present GI: INSPECTION: No abdominal distension AUSCULTATION: No Hyperactive bowel sounds present and No Hypoactive bowel sounds present PALPATION: No Guarding due to palpation present (GI) and No Rigid due to palpation PERCUSSION: no dullness to percussion and no tympanic to percussion Back/Pelvis: OTHER: Diffuse tenderness to the lumbar spine. No focal area of tenderness. Straight leg raise test is negative for radicular pain bilaterally. On distracted exam she is much less tender. She is tender even to light touch when paying attention. Neuro: SENSORIUM/ORIENTATION: Yes oriented to person, Yes oriented to place and Yes oriented to time Psych: COMMON NORMALS: mental status grossly normal Skin: COMMON NORMALS: no rashes or lesions noted GENERAL SKIN EXAM: no rashes or lesions noted Course Vital Signs: Vital signs: Vital Signs Temperature 97.8 F 02/19/20 05:18 Pulse Rate 88 02/19/20 06:22 Respiratory Rate 16 02/19/20 06:22 Blood Pressure 158/92 02/19/20 06:22 Pulse Oximetry 96 02/19/20 06:22 MDM - Fall MDM Narrative: Medical decision making narrative: X-rays are negative for fracture. She will be allowed home. Discharge Plan Discharge Patient Disposition: Home, Self-Care Clinical Impression: Lumbar contusion Qualifiers: Encounter type: initial encounter Qualified Code(s): S30.0XXA - Contusion of lower back and pelvis, initial encounter Condition: Stable Prescriptions: New ketorolac 10 mg tablet 10 mg PO TID PRN (Reason: pain) Qty: 10 RF: 0 No Action albuterol sulfate [Ventolin HFA] 90 mcg/actuation HFA aerosol inhaler 2 puff INHALATION Q6H PRN (Reason: Shortness Of Breath Or Wheezing) Qty: 8.5 RF: 1 terbinafine HCl 250 mg tablet 250 mg PO DAILY Qty: 14 RF: 0 metformin 500 mg tablet 500 mg PO BID Qty: 180 RF: 1 atenolol 25 mg tablet 25 mg PO BID Qty: 180 RF: 1 gabapentin 300 mg capsule 300 mg PO TID MDD 3 Qty: 90 RF: 0 tramadol 50 mg tablet 50 mg PO QID PRN (Reason: chronic pain) Qty: 120 RF: 0 atorvastatin 40 mg tablet 40 mg PO DAILY Qty: 45 RF: 0 omeprazole 40 mg capsule,delayed release(DR/EC) 40 mg PO DAILY Qty: 90 RF: 0 dulaglutide 1.5 mg/0.5 mL pen injector 1.5 mg SUBCUT Q7D Qty: 2 RF: 2 spironolactone 25 mg tablet 25 mg PO DAILY RF: 0 citalopram 20 mg tablet 20 mg PO DAILY RF: 0 lisinopril-hydrochlorothiazide 20-25 mg tablet 1 tab PO DAILY RF: 0 Discharge Orders: Discharge Order (Routine); Ordered 02/19/20 Ordered By: Sergio Chu Referrals: Lambert,Celina, DO [Primary Care Provider] - 4-7 days Discharge Diet: Usual diet Discharge Activity: Increase activity as tolerated Patient Instructions: Contusion in Adults (ED) Discharge Date/Time: 02/19/20 06:24 Coding Level of Care Code ED Business Performance Advisor for Leonela Fwd Exam Comprehensive
== END 2020-02-19 06:24 | disposition home or self-care (01) ==
PROVIDERS: Emergency Provider Emergency Medicine; Family Provider Family Medicine; PCP Family Medicine
DX: S30.0XXA Contusion of lower back and pelvis, initial encounter (principal); W06.XXXA Fall from bed, initial encounter; I10 Essential (primary) hypertension; E11.9 Type 2 diabetes mellitus without complications; F17.210 Nicotine dependence, cigarettes, uncomplicated
CPT/HCPCS: 12345; 72100; 99281; 99283

== ENCOUNTER 2020-02-23 19:07 | Emergency (ER) | payer MEDICARE, MEDICAID, SELFPAY ==
[2020-02-23 19:16] VITALS: BP 128/86; PULSE 90; RESP 18; TEMP 36.7; O2SAT 96; BMI 56.2
--- NOTE | 2020-02-23 19:39 | ED_ITS ---
HPI - Skin/Abscess/Foreign Bdy General: Chief complaint: Skin/Abscess/Foreign Body Stated complaint: wound on butt Time Seen by Provider: 02/23/20 19:35 History of Present Illness: HPI narrative: Patient is a 34-year-old female comes to the ED with a wound on left buttock. Patient says wound started about 2 weeks ago. It is been draining on and off for the past 2 weeks. It has redness around it and drainage is described as a thick bloody discharge. She reports subjective fevers and some nausea. She says it is very painful and any pressure there makes it worse. She rates the pain a 10 out of 10. Denies any past MRSA or staph infections. Last tetanus was within the last 2 years. Associated symptoms: Reports fever(s) and nausea; Deny chills or vomiting Review of Systems Const: Reports: fever(s); Denies: chills or fatigue Eyes: Denies: change in vision or eye discomfort ENMT: Denies: throat pain, odynophagia, nasal discharge or nasal congestion Card: Denies: chest pain, palpitations, edema, swelling of feet/ankles, dyspnea on exertion or orthopnea Resp: Denies: dyspnea, productive cough or non-productive cough GI: Reports: nausea; Denies: abdominal pain, vomiting, diarrhea, constipation or hematochezia : Denies: flank pain, dysuria or hematuria Musc: Denies: neck pain, back pain or extremity swelling Skin/Breast: Reports: new lesions (wound on left buttock); Denies: rash Neuro: Denies: headache(s), numbness in extremities or weakness in extremities PFS ED PFSH: Medical History Amenorrhea Asthma Benign essential HTN Bilateral chronic knee pain Bilateral leg edema Diabetes mellitus, without long-term current use of insulin GERD (gastroesophageal reflux disease) nursing home (current) use of opiate analgesic Morbid obesity with BMI of 60.0-69.9, adult Muscle spasms of both lower extremities Pain management contract signed Prolonged depression Spinal stenosis, thoracic region Surgical History History of cholecystectomy Family History Father CAD (coronary artery disease) Diabetes Hypertension Family/Other Cancer Mother Diabetes Hypertension Social History Smoking and tobacco status: current every day smoker cigarettes Packs smoked per day: 1 Alcohol intake: never Household members: spouse and family Marital status: Current occupational status: disabled Current occupation: disabled History of recent travel: No Female Reproductive History: Date of last menstrual period: 02/17/20 Physical Exam 2 Const: COMMON NORMALS: no acute distress, patient oriented x3 and alert GENERAL APPEARANCE: cooperative; not comfortable (Uncomfortable and in pain) HENMT: COMMON NORMALS: normocephalic HEAD & SCALP: normocephalic MOUTH: Normal oral and palatal mucosa present THROAT: posterior oropharynx normal and uvula midline Eye: COMMON NORMALS: Equal, round and reactive pupils present PUPIL: Yes Equal, round and reactive pupils present Neck/C-Spine: COMMON NORMALS: supple GENERAL: Yes normal visual inspection Resp: COMMON NORMALS: normal respiratory effort, No retractions, No use of accessory muscles and clear to auscultation bilaterally AUSCULTATION: clear to auscultation bilaterally Cardio: COMMON NORMALS: regular rate, regular rhythm, S1 normal heart sound present, S2 normal heart sound present, No gallops present (Cardio), No clicks present (Cardio), No murmurs present (Cardio) and Peripheral pulses 2+ throughout RATE: regular rate RHYTHM: regular rhythm HEART SOUNDS: S1 normal heart sound present and S2 normal heart sound present PERIPHERAL PULSES: Peripheral pulses 2+ throughout GI: COMMON NORMALS: Normal to inspection, nondistended, normoactive bowel sounds present, Soft to palpation, non-tender and no masses PALPATION: Yes Soft to palpation : COMMON NORMALS: Yes no CVA tenderness BLADDER/KIDNEY EXAM: Yes no CVA tenderness Back/Pelvis: COMMON NORMALS: no CVA tenderness Extremity: COMMON NORMALS: normal to inspection and no pedal edema Neuro: COMMON NORMALS: patient oriented x3 and moves all extremities SENSORIUM/ORIENTATION: Yes alert Skin: LESIONS: lesion noted Left buttock-Medial Lesion type: Yes pustule Lesion size (cm): 4 Lesion location: Left buttock on medial aspect. Lesion color: Yes surrounding erythema Lesion consistency: Yes fluctuent and Yes firm Lesion surface: Yes pointed and Yes draining (Thick bloody and purulent drainage.) Lesion border: Yes surrounding erythema Lesion tenderness: Yes moderate Lesion finding consistent with: Yes other (Abscess) Procedures Abscess I/D Site: lower extremity (Left buttock) Side (if applicable): left Sedation/analgesia: other (morphine) Local Anesthetic: lidocaine 1% and with epi Amount of anesthesia used (mL): 10 Technique: incised with #11 blade Amount of fluid expressed (mL): 3 Irrigation: Yes Packing used?: iodoform Course ED course: Bedside ultrasound was performed to evaluate abscess. Small pocket to drain was identified during ultrasound. Vital Signs: Vital signs: Vital Signs Temperature 97.7 F 02/24/20 00:19 Pulse Rate 94 02/24/20 00:19 Respiratory Rate 16 02/24/20 00:19 Blood Pressure 126/65 02/24/20 00:19 Pulse Oximetry 94 02/24/20 00:19 MDM - Skin/Abscess/Foreign Bdy MDM Narrative: Medical decision making narrative: Patient is a 34-year-old female comes to the ED with abscess on left buttock. Physical exam showed an abscess that did have some small purulent bloody discharge. I performed a bedside ultrasound and identified a pocket of fluid to drain. White blood cells 15.5. I&D was performed and iodine packing placed an abscess. Patient was given a dose of Bactrim while here in the ED. Patient was discharged with prescription for Bactrim and told to return to the ED in the next 2 days to get abscess reevaluated and packing removed. Patient understood and agreed with plan. Lab Data: Attestation: I reviewed the patient's lab results. Labs: Lab Results 02/23/20 02/23/20 02/23/20 Range/Units 20:28 20:28 20:28 WBC 15.5 H (4.0-10.0) 10^3/ uL RBC 4.41 (4.1-5.3) 10^6/u L Hgb 13.0 (11.5-15.3) g/dL Hct 39.9 (37.0-47.0) % MCV 90.5 (81-99) fL MCH 29.5 (28.0-34.0) pg MCHC 32.6 (30.0-36.0) g/dL RDW 12.8 (12.1-15.1) % Plt Count 340 (130-400) 10^3/c mm MPV 10.8 H (7.4-10.4) fL Neut % (Auto) 79.4 % Lymph % (Auto) 11.3 % Graves % (Auto) 5.1 % Eos % (Auto) 1.6 % Baso % (Auto) 0.4 % Neut # (Auto) 12.3 H (1.8-7.7) 10^3/u L Lymph # (Auto) 1.7 (0.8-4.8) 10^3/u L Graves # (Auto) 0.8 (0.2-0.9) 10^3/u L Eos # (Auto) 0.3 (0.0-0.8) 10^3/u L Baso # (Auto) 0.1 (0.0-0.1) 10^3/u L Nucleated RBC % (a uto) 0 % Nucleated RBCs # 0.0 /100WBC Sodium 134 L (136-145) mmol/L Potassium 4.6 (3.5-5.1) mmol/L Chloride 96 L (98-107) mmol/L Carbon Dioxide 27 (22-29) mmol/L Anion Gap 15.6 (5-19) BUN 14 (6-20) mg/dL Creatinine 0.8 (0.5-0.9) mg/dL GFR Calculation 83.1 L (90-130) mL/min Glucose 274 H (65-115) mg/dL Calculated Osmolal ity 284 L (285-295) mOsm/k g Calcium 9.8 (8.5-10.5) mg/dL Total Bilirubin 0.5 (0.15-1.2) mg/dL AST 17 (0-32) U/L ALT 36 H (0-33) U/L Alkaline Phosphata se 141 H (35-105) IU/L Total Protein 7.5 (6.6-8.7) g/dL Albumin 4.2 (3.5-5.2) g/dL Globulin 3.3 (1.3-4.6) g/dL HCG, Qual Negative (Negative) Discharge Plan Discharge Patient Disposition: Home, Self-Care Clinical Impression: Abscess Condition: Stable Prescriptions: New Bactrim DS 800-160 mg tablet 1 tab PO BID 10 Days Qty: 20 RF: 0 No Action albuterol sulfate [Ventolin HFA] 90 mcg/actuation HFA aerosol inhaler 2 puff INHALATION Q6H PRN (Reason: Shortness Of Breath Or Wheezing) Qty: 8.5 RF: 1 atenolol 25 mg tablet 25 mg PO BID Qty: 180 RF: 1 gabapentin 300 mg capsule 300 mg PO TID MDD 3 Qty: 90 RF: 0 tramadol 50 mg tablet 50 mg PO QID PRN (Reason: chronic pain) Qty: 120 RF: 0 atorvastatin 40 mg tablet 40 mg PO DAILY Qty: 45 RF: 0 omeprazole 40 mg capsule,delayed release(DR/EC) 40 mg PO DAILY Qty: 90 RF: 0 dulaglutide 1.5 mg/0.5 mL pen injector 1.5 mg SUBCUT Q7D Qty: 2 RF: 2 spironolactone 25 mg tablet 25 mg PO DAILY Qty: 90 RF: 0 metformin 500 mg tablet 500 mg PO BID Qty: 180 RF: 1 cyclobenzaprine 10 mg Tablet 10 mg PO TID PRN (Reason: unknown) RF: 0 citalopram 20 mg tablet 20 mg PO DAILY RF: 0 lisinopril-hydrochlorothiazide 20-25 mg tablet 1 tab PO DAILY RF: 0 Discharge Orders: Discharge Order (Routine); Ordered 02/23/20 Ordered By: Quinn Zhong Referrals: Celina Ruiz DO [Primary Care Provider] - Discharge Diet: Regular Discharge Activity: Increase activity as tolerated Patient Instructions: Abscess Incision and Drainage (ED), Abscess (ED) Activity Restrictions/Additional Instructions: Return to the ED in 1 to 2 days for reevaluation of abscess and to remove packing. I am sending you home with 1 hydrocodone tablet to take as needed for pain tonight. You can also take ibuprofen or Tylenol for pain and fever.. Take full course of antibiotic as prescribed. Discharge Date/Time: 02/24/20 00:23 Coding Level of Care Code ED Data Reduction Technician for Leonela Fwtish Exam Comprehensive
[2020-02-23 20:36] LABS: Basophils # 0.1 10^3/uL (0.0-0.1); Basophils % 0.4 %; Eosinophils # 0.3 10^3/uL (0.0-0.8); Eosinophils % 1.6 %; Hematocrit 39.9 % (37.0-47.0); Lymphocytes # 1.7 10^3/uL (0.8-4.8); Lymphocytes % 11.3 %; Mean Corpuscular HGB Conc 32.6 g/dL (30.0-36.0); Mean Corpuscular Hemoglobin 29.5 pg (28.0-34.0); Mean Corpuscular Volume 90.5 fL (81-99); Mean Platelet Volume 10.8 fL (7.4-10.4); Monocytes # 0.8 10^3/uL (0.2-0.9); Monocytes % 5.1 %; Neutrophils # 12.3 10^3/uL (1.8-7.7); Neutrophils % 79.4 %; Nucleated Red Blood Cells % 0 %; Platelet Count 340 10^3/cmm (130-400); Red Blood Count 4.41 10^6/uL (4.1-5.3); Red Cell Distribution Width 12.8 % (12.1-15.1); White Blood Count 15.5 10^3/uL (4.0-10.0)
[2020-02-23 20:51] LABS: HCG, Serum Qual Negative (Negative)
[2020-02-23 20:52] LABS: Alanine Aminotransferase 36 U/L (0-33); Albumin Level 4.2 g/dL (3.5-5.2); Alkaline Phosphatase 141 IU/L (35-105); Anion Gap 15.6 (5-19); Aspartate Amino Transferase 17 U/L (0-32); Blood Urea Nitrogen 14 mg/dL (6-20); Calcium 9.8 mg/dL (8.5-10.5); Carbon Dioxide 27 mmol/L (22-29); Chloride 96 mmol/L (98-107); Creatinine Clr Calc Pharmacy 152.2439; Globulin 3.3 g/dL (1.3-4.6); Glomerular Filtration Rate 83.1 mL/min (90-130); Glucose 274 mg/dL (65-115); Osmolality Calculated 284 mOsm/kg (285-295); Potassium 4.6 mmol/L (3.5-5.1); Sodium 134 mmol/L (136-145); Total Bilirubin 0.5 mg/dL (0.15-1.2); Total Protein 7.5 g/dL (6.6-8.7)
[2020-02-23] MEDS: sodium chloride 0.9% 500 ML IV (20:53)
[2020-02-23] MEDS: ondansetron 2 mg/ML SDV 2 mL 4 MG IVP (20:54)
[2020-02-23 21:01] VITALS: RESP 16
[2020-02-23] MEDS: morphine 4 mg/mL SDV 1 mL IVP (21:01)
[2020-02-23 22:57] VITALS: RESP 16; O2SAT 94
[2020-02-23] MEDS: morphine 4 mg/mL SDV 1 mL 2 MG IVP (22:57)
[2020-02-24] MEDS: sulfamethoxazole-trimeth DS 160-800 mg Tablet 1 TAB PO (00:10)
[2020-02-24] MEDS: HYDROcodone-acetaminophen 7.5-325 mg Tablet 1 TAB PO (00:15)
[2020-02-24 00:19] VITALS: BP 126/65; PULSE 94; RESP 16; TEMP 36.5; O2SAT 94
== END 2020-02-24 00:23 | disposition home or self-care (01) ==
PROVIDERS: Emergency Provider Physician Assistant; PCP Family Medicine
DX: L02.31 Cutaneous abscess of buttock (principal); I10 Essential (primary) hypertension; E11.9 Type 2 diabetes mellitus without complications; F17.210 Nicotine dependence, cigarettes, uncomplicated
CPT/HCPCS: 10060; 12345; 36415; 80053; 84703; 85025; 87040; 87070; 87075; 87077; 87186; 87205; 96361; 96374; 96375; 96376; 99282; 99283; A9270; J2270; J2405; J7040

== ENCOUNTER 2020-02-25 06:40 | Emergency (ER) | payer MEDICARE, MEDICAID, SELFPAY ==
[2020-02-25 06:57] VITALS: BP 171/97; PULSE 95; RESP 18; TEMP 36.5; O2SAT 97; BMI 65.9
[2020-02-25 07:11] VITALS: BP 157/81; PULSE 94; RESP 18; O2SAT 96
--- NOTE | 2020-02-25 07:13 | W.ED.GENADLT ---
HPI - General Adult General: Chief complaint: General Medical Stated complaint: PACKING REMOVAL Time Seen by Provider: 02/25/20 07:13 Source: patient Mode of arrival: ambulatory Limitations: no limitations History of Present Illness: HPI narrative: Patient comes in today for concerns of recheck on abscess to the left buttock. Patient had a incision and drainage done 2 days ago. Patient was to return today to have packing removed. Patient appears well. Patient appears in no acute distress. 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 Morbid obesity with BMI of 60.0-69.9, adult Muscle spasms of both lower extremities Pain management contract signed Prolonged depression Spinal stenosis, thoracic region Surgical History History of cholecystectomy Family History Father CAD (coronary artery disease) Diabetes Hypertension Family/Other Cancer Mother Diabetes Hypertension Social History Smoking and tobacco status: current every day smoker cigarettes Packs smoked per day: 1 Alcohol intake: never Household members: spouse and family Marital status: Current occupational status: disabled Current occupation: disabled History of recent travel: No Female Reproductive History: Date of last menstrual period: 02/17/20 Physical Exam Const: COMMON NORMALS: no acute distress and patient oriented x3 GENERAL APPEARANCE: cooperative HENMT: COMMON NORMALS: normocephalic and Normal external nose present HEAD & SCALP: normal to inspection and normocephalic NOSE: Normal external nose present MOUTH: Normal oral and palatal mucosa present THROAT: posterior oropharynx normal Eye: GENERAL EYE: appearance normal, both eyes and all related structures Neck/C-Spine: COMMON NORMALS: full ROM Chest: COMMONS NORMALS: normal inspection of the chest Resp: COMMON NORMALS: normal respiratory effort EFFORT & INSPECTION: Yes able to speak in complete sentences Cardio: COMMON NORMALS: regular rate and regular rhythm RATE: regular rate RHYTHM: regular rhythm GI: COMMON NORMALS: non-tender Back/Pelvis: COMMON NORMALS: thoracic and lumbar spine normal to inspection Extremity: COMMON NORMALS: normal to inspection Neuro: COMMON NORMALS: patient oriented x3 and moves all extremities Psych: COMMON NORMALS: mental status grossly normal and cooperative Skin: NARRATIVE SKIN EXAM: Indurated lesion is noted to the left central buttocks. Exam was performed with spouse in the room. Small amount of packing was removed from the wound. Patient tolerated well. Course Vital Signs: Vital signs: Vital Signs Temperature 97.7 F 02/25/20 06:57 Pulse Rate 94 02/25/20 07:11 Respiratory Rate 18 02/25/20 07:11 Blood Pressure 157/81 02/25/20 07:11 Pulse Oximetry 96 02/25/20 07:11 MDM - General Adult MDM Narrative: Medical decision making narrative: Patient comes in for packing removal and dressing change to the left buttocks. On exam we noted the area of induration with a central incision wound. Approximately 2 inches of packing material was removed from the wound a small superficial abscess was noted. No new packing was introduced. Patient tolerated well. Spouse was present during exam and dressing removed. Reviewed postprocedure care and recommendations for further treatment. Patient reported understanding. Discharge Plan Discharge Patient Disposition: Home, Self-Care Clinical Impression: Abscess Condition: Stable Prescriptions: No Action albuterol sulfate [Ventolin HFA] 90 mcg/actuation HFA aerosol inhaler 2 puff INHALATION Q6H PRN (Reason: Shortness Of Breath Or Wheezing) Qty: 8.5 RF: 1 atenolol 25 mg tablet 25 mg PO BID Qty: 180 RF: 1 gabapentin 300 mg capsule 300 mg PO TID MDD 3 Qty: 90 RF: 0 tramadol 50 mg tablet 50 mg PO QID PRN (Reason: chronic pain) Qty: 120 RF: 0 atorvastatin 40 mg tablet 40 mg PO DAILY Qty: 45 RF: 0 omeprazole 40 mg capsule,delayed release(DR/EC) 40 mg PO DAILY Qty: 90 RF: 0 dulaglutide 1.5 mg/0.5 mL pen injector 1.5 mg SUBCUT Q7D Qty: 2 RF: 2 spironolactone 25 mg tablet 25 mg PO DAILY Qty: 90 RF: 0 metformin 500 mg tablet 500 mg PO BID Qty: 180 RF: 1 cyclobenzaprine 10 mg Tablet 10 mg PO TID PRN (Reason: unknown) RF: 0 Bactrim DS 800-160 mg tablet 1 tab PO BID 10 Days Qty: 20 RF: 0 citalopram 20 mg tablet 20 mg PO DAILY RF: 0 lisinopril-hydrochlorothiazide 20-25 mg tablet 1 tab PO DAILY RF: 0 Discharge Orders: Discharge Order (Routine); Ordered 02/25/20 Ordered By: Herb Nathan Referrals: Celina Ruiz DO [Primary Care Provider] - Discharge Diet: Usual diet Discharge Activity: Increase activity as tolerated Activity Restrictions/Additional Instructions: Change dressing as needed. Continue with antibiotics as ordered. Drink plenty of water with antibiotics. Follow-up with primary care for persistent symptoms. Return to the ER for high fever or new concerns. Coding Level of Care Code ED Pharmaceutical Sales Representative for Leonela Escobedo
[2020-02-25 07:49] VITALS: BP 152/76; PULSE 91; RESP 17; O2SAT 95
== END 2020-02-25 07:49 | disposition home or self-care (01) ==
PROVIDERS: Emergency Provider Nurse Practitioner Family; PCP Family Medicine
DX: L02.31 Cutaneous abscess of buttock (principal); I10 Essential (primary) hypertension; E11.9 Type 2 diabetes mellitus without complications; F17.210 Nicotine dependence, cigarettes, uncomplicated
CPT/HCPCS: 12345; 99282

== ENCOUNTER 2020-03-04 15:51 | Emergency (ER) | payer MEDICARE, MEDICAID, SELFPAY ==
[2020-03-04 16:05] VITALS: BP 125/81; PULSE 93; RESP 18; TEMP 36.7; O2SAT 97; BMI 65.9
--- NOTE | 2020-03-04 17:14 | USR_ITS ---
PROCEDURE INFORMATION: Exam: US Left Non-Vascular Joint or Other Extremity Structure, Limited Exam date and time: 03/04/2020 5:56 PM Age: 34 years old Clinical indication: Symptoms: Pain and inflammation; Patient HX: (patient obese); Additional info: Perirectal, boil. Area of concern is in the region of the right pannus and vulva. TECHNIQUE: Imaging protocol: Left US joint or other nonvascular extremity structure or structures. Real-time ultrasound with image documentation. Limited study. COMPARISON: No relevant prior studies available. FINDINGS: When scanning over the region of concern there is a 1.6 by 2.2 x 0.9 cm heterogeneous, predominantly hypoechoic lesion with peripheral vascularity. US/US soft tissue/extremity 61848 IMPRESSION: There is a 2.2 cm heterogeneous lesion with peripheral vascularity in the region of concern. This is nonspecific. Differential includes abscess formation.
--- NOTE | 2020-03-04 17:31 | W.ED.SKABFB ---
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 Morbid obesity with BMI of 60.0-69.9, adult Muscle spasms of both lower extremities Pain management contract signed Prolonged depression Spinal stenosis, thoracic region Surgical History History of cholecystectomy Family History Father CAD (coronary artery disease) Diabetes Hypertension Family/Other Cancer Mother Diabetes Hypertension Social History Smoking and tobacco status: current every day smoker cigarettes Packs smoked per day: 1 Alcohol intake: never Household members: spouse and family Marital status: Current occupational status: disabled Current occupation: disabled History of recent travel: No Female Reproductive History: Date of last menstrual period: 02/17/20 Physical Exam Const: COMMON NORMALS: no acute distress and patient oriented x3 HENMT: COMMON NORMALS: normocephalic and atraumatic HEAD & SCALP: normocephalic and atraumatic Eye: COMMON NORMALS: Equal, round and reactive pupils present PUPIL: Yes Equal, round and reactive pupils present and Yes Pupil accommodation reflex normal Chest: COMMONS NORMALS: normal inspection of the chest Resp: COMMON NORMALS: normal respiratory effort, No retractions, No use of accessory muscles and clear to auscultation bilaterally AUSCULTATION: clear to auscultation bilaterally GI: COMMON NORMALS: Normal to inspection, nondistended, normoactive bowel sounds present INSPECTION: Yes normal to inspection Extremity: COMMON NORMALS: normal to inspection, full ROM and capillary refill normal Neuro: COMMON NORMALS: patient oriented x3 Skin: SKIN IMAGES (FEMALE): 1. Abscess quarter in size 2. Abscess dime sized. Course Vital Signs: Vital signs: Vital Signs Temperature 98.0 F 03/04/20 16:05 Pulse Rate 93 03/04/20 16:05 Respiratory Rate 18 03/04/20 17:44 Blood Pressure 125/81 03/04/20 16:05 Pulse Oximetry 97 03/04/20 16:05 MDM - Skin/Abscess/Foreign Bdy MDM Narrative: Medical decision making narrative: Follow-up with PCP will start on antibiotic, will require wound check at the beginning of next week. Patient recently finished a round of Bactrim 2 days ago, patient recurrently gets abscesses in the groin area and buttocks. Will cover with doxycycline and clindamycin and follow-up closely with her primary care provider Lab Data: Labs: Lab Results 03/04/20 Range/Units 17:37 WBC 17.6 H (4.0-10.0) 10^3/ uL RBC 4.30 (4.1-5.3) 10^6/u L Hgb 12.6 (11.5-15.3) g/dL Hct 39.2 (37.0-47.0) % MCV 91.2 (81-99) fL MCH 29.3 (28.0-34.0) pg MCHC 32.1 (30.0-36.0) g/dL RDW 12.7 (12.1-15.1) % Plt Count 289 (130-400) 10^3/c mm MPV 11.3 H (7.4-10.4) fL Neut % (Auto) 80.7 % Lymph % (Auto) 11.3 % Sutton % (Auto) 5.1 % Eos % (Auto) 1.5 % Baso % (Auto) 0.3 % Neut # (Auto) 14.2 H (1.8-7.7) 10^3/u L Lymph # (Auto) 2.0 (0.8-4.8) 10^3/u L Sutton # (Auto) 0.9 (0.2-0.9) 10^3/u L Eos # (Auto) 0.3 (0.0-0.8) 10^3/u L Baso # (Auto) 0.1 (0.0-0.1) 10^3/u L Nucleated RBC % (a uto) 0 % Nucleated RBCs # 0.0 /100WBC Discharge Plan Discharge Patient Disposition: Home, Self-Care Clinical Impression: Abscess, Abscess of skin or subcutaneous tissue Condition: Stable Prescriptions: New doxycycline monohydrate 100 mg capsule 100 mg PO BID 10 Days Qty: 20 RF: 0 clindamycin HCl 300 mg capsule 300 mg PO TID 7 Days Qty: 21 RF: 0 No Action albuterol sulfate [Ventolin HFA] 90 mcg/actuation HFA aerosol inhaler 2 puff INHALATION Q6H PRN (Reason: Shortness Of Breath Or Wheezing) Qty: 8.5 RF: 1 atenolol 25 mg tablet 25 mg PO BID Qty: 180 RF: 1 gabapentin 300 mg capsule 300 mg PO TID MDD 3 Qty: 90 RF: 0 tramadol 50 mg tablet 50 mg PO QID PRN (Reason: chronic pain) Qty: 120 RF: 0 atorvastatin 40 mg tablet 40 mg PO DAILY Qty: 45 RF: 0 omeprazole 40 mg capsule,delayed release(DR/EC) 40 mg PO DAILY Qty: 90 RF: 0 dulaglutide 1.5 mg/0.5 mL pen injector 1.5 mg SUBCUT Q7D Qty: 2 RF: 2 spironolactone 25 mg tablet 25 mg PO DAILY Qty: 90 RF: 0 metformin 500 mg tablet 500 mg PO BID Qty: 180 RF: 1 cyclobenzaprine 10 mg Tablet 10 mg PO TID PRN (Reason: unknown) RF: 0 citalopram 20 mg tablet 20 mg PO DAILY RF: 0 lisinopril-hydrochlorothiazide 20-25 mg tablet 1 tab PO DAILY RF: 0 Discharge Orders: Discharge Order (Routine); Ordered 03/04/20 Ordered By: Flores Christian Referrals: Celina Ruiz DO [Primary Care Provider] - Discharge Diet: Usual diet Discharge Activity: Resume usual activity Coding Level of Care Code ED Health Policy Analyst for [place] Fwd Exam Detailed
[2020-03-04 17:44] VITALS: RESP 18
[2020-03-04 18:11] LABS: Basophils # 0.1 10^3/uL (0.0-0.1); Basophils % 0.3 %; Eosinophils # 0.3 10^3/uL (0.0-0.8); Eosinophils % 1.5 %; Hematocrit 39.2 % (37.0-47.0); Hemoglobin 12.6 g/dL (11.5-15.3); Lymphocytes % 11.3 %; Mean Corpuscular HGB Conc 32.1 g/dL (30.0-36.0); Mean Corpuscular Hemoglobin 29.3 pg (28.0-34.0); Mean Corpuscular Volume 91.2 fL (81-99); Mean Platelet Volume 11.3 fL (7.4-10.4); Monocytes # 0.9 10^3/uL (0.2-0.9); Monocytes % 5.1 %; Neutrophils # 14.2 10^3/uL (1.8-7.7); Neutrophils % 80.7 %; Nucleated Red Blood Cells % 0 %; Platelet Count 289 10^3/cmm (130-400); Red Cell Distribution Width 12.7 % (12.1-15.1); White Blood Count 17.6 10^3/uL (4.0-10.0)
[2020-03-04] MEDS: lidocaine 1% INJ 20 mL INJECTION (18:42)
--- NOTE | 2020-03-04 19:05 | PC.NURSE ---
during pt rpunds, pt requesting ice water. per OPERATIONS AND MAINTENANCE SPECIALIST, pt ok to have ice water
[2020-03-04 19:38] VITALS: BP 122/78; PULSE 96; RESP 18; O2SAT 98
== END 2020-03-04 19:40 | disposition home or self-care (01) ==
PROVIDERS: Emergency Provider Nurse Practitioner Family; PCP Family Medicine
DX: L02.818 Cutaneous abscess of other sites (principal); F17.210 Nicotine dependence, cigarettes, uncomplicated; I10 Essential (primary) hypertension; E11.9 Type 2 diabetes mellitus without complications
CPT/HCPCS: 12345; 76882; 85025; 99281; 99283; J2001

== ENCOUNTER → 2020-03-16 12:34 | Outpatient (BNVA) | payer MEDICARE, MEDICAID, SELFPAY | PROVIDERS: Family Provider Family Medicine; PCP Family Medicine; Visit Provider Anesthesiology Pain Medicine | DX: G89.29 Other chronic pain (principal); M48.04 Spinal stenosis, thoracic region; M47.814 Spondylosis without myelopathy or radiculopathy, thoracic region; M54.9 Dorsalgia, unspecified; M54.5 Low back pain; M25.561 Pain in right knee; M25.562 Pain in left knee; M62.838 Other muscle spasm; F17.219 Nicotine dependence, cigarettes, with unspecified nicotine-induced disorders; Z79.891 Long term (current) use of opiate analgesic | CPT/HCPCS: 99213 ==

== ENCOUNTER → 2020-03-23 11:48 | Outpatient (BNVA) | payer MEDICARE, MEDICAID, SELFPAY | PROVIDERS: Family Provider Family Medicine; PCP Family Medicine; Visit Provider Family Medicine | DX: E78.5 Hyperlipidemia, unspecified (principal); M48.04 Spinal stenosis, thoracic region; E11.9 Type 2 diabetes mellitus without complications; Z13.6 Encounter for screening for cardiovascular disorders | CPT/HCPCS: 80053 ==

== ENCOUNTER → 2020-04-07 10:08 | Outpatient (BNVA) | payer MEDICARE, MEDICAID, SELFPAY | PROVIDERS: Family Provider Family Medicine; PCP Family Medicine; Visit Provider Anesthesiology Pain Medicine | DX: M47.814 Spondylosis without myelopathy or radiculopathy, thoracic region (principal); M54.9 Dorsalgia, unspecified; F17.210 Nicotine dependence, cigarettes, uncomplicated; Z79.891 Long term (current) use of opiate analgesic | CPT/HCPCS: 64490; 64491; 64492; J3490 ==

== ENCOUNTER 2020-04-09 17:31 | Emergency (ER) | payer MEDICARE, MEDICAID, SELFPAY ==
[2020-04-09 18:02] VITALS: BP 132/81; PULSE 76; RESP 16; TEMP 36.8; O2SAT 97; BMI 64.8
--- NOTE | 2020-04-09 18:11 | W.ED.BACK ---
HPI - Back Pain/Injury General: Chief Complaint: Back Pain/Injury Stated Complaint: back pain Time Seen by Provider: 04/09/20 18:11 History of Present Illness: HPI Narrative: Patient is a 34-year-old female comes to the ED with lower back pain. Patient has chronic lower back pain and sees pain management. On Friday pain management gave multiple injections in the lower back for pain management. Patient says pain is gotten worse. She rates the pain a 10 out of 10 and describes it as a sharp burning pain. Patient denies bladder or bowel incontinence weakness to lower extremities or pelvic anesthesia. Associated symptoms: Deny abdominal pain, chills, dysuria, fatigue, fever(s), hematuria, nausea or vomiting Review of Systems Const: Denies: fever(s), chills or fatigue Eyes: Denies: change in vision or eye discomfort ENMT: Denies: throat pain, odynophagia, nasal discharge or nasal congestion Card: Denies: chest pain, palpitations, edema, swelling of feet/ankles, dyspnea on exertion or orthopnea Resp: Denies: dyspnea, productive cough or non-productive cough GI: Denies: abdominal pain, nausea, vomiting, diarrhea, constipation or hematochezia : Denies: flank pain, dysuria or hematuria Musc: Reports: back pain (Acute on chronic pain.); Denies: neck pain or extremity swelling Skin/Breast: Denies: rash or new lesions Neuro: Denies: headache(s), numbness in extremities or weakness in extremities PFS ED PFSH: Medical History Amenorrhea Asthma Benign essential HTN Bilateral chronic knee pain Bilateral leg edema Diabetes mellitus, without long-term current use of insulin Dyslipidemia GERD (gastroesophageal reflux disease) 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 Morbid obesity with BMI of 60.0-69.9, adult Muscle spasms of both lower extremities Pain management contract signed Prolonged depression Spinal stenosis, thoracic region Surgical History History of cholecystectomy Family History Father CAD (coronary artery disease) Diabetes Hypertension Family/Other Cancer Mother Diabetes Hypertension Social History Smoking and tobacco status: current every day smoker cigarettes Packs smoked per day: 0.5 Alcohol intake: never Substance/Drug Use: never Household members: spouse and family Marital status: Current occupational status: disabled Current occupation: disabled History of recent travel: No Female Reproductive History: Date of last menstrual period: 03/12/20 Physical Exam Const: COMMON NORMALS: no acute distress, patient oriented x3 and alert GENERAL APPEARANCE: cooperative and comfortable HENMT: COMMON NORMALS: normocephalic HEAD & SCALP: normocephalic MOUTH: Normal oral and palatal mucosa present THROAT: posterior oropharynx normal and uvula midline Eye: COMMON NORMALS: Equal, round and reactive pupils present PUPIL: Yes Equal, round and reactive pupils present Neck/C-Spine: COMMON NORMALS: supple GENERAL: Yes normal visual inspection Resp: COMMON NORMALS: normal respiratory effort, No retractions, No use of accessory muscles and clear to auscultation bilaterally AUSCULTATION: clear to auscultation bilaterally Cardio: COMMON NORMALS: regular rate, regular rhythm, S1 normal heart sound present, S2 normal heart sound present, No gallops present (Cardio), No clicks present (Cardio), No murmurs present (Cardio) and Peripheral pulses 2+ throughout RATE: regular rate RHYTHM: regular rhythm HEART SOUNDS: S1 normal heart sound present and S2 normal heart sound present PERIPHERAL PULSES: Peripheral pulses 2+ throughout GI: COMMON NORMALS: Normal to inspection, nondistended, normoactive bowel sounds present, Soft to palpation, non-tender and no masses INSPECTION: Yes central obesity PALPATION: Yes Soft to palpation : COMMON NORMALS: Yes no CVA tenderness BLADDER/KIDNEY EXAM: Yes no CVA tenderness Back/Pelvis: COMMON NORMALS: no CVA tenderness LUMBAR SPINE/LOWER BACK: Yes paraspinal muscle tenderness Extremity: COMMON NORMALS: normal to inspection Neuro: COMMON NORMALS: patient oriented x3 and moves all extremities SENSORIUM/ORIENTATION: Yes alert Skin: GENERAL SKIN EXAM: dry skin Course Vital Signs: Vital signs: Vital Signs Temperature 98.3 F 04/09/20 18:02 Pulse Rate 88 04/09/20 19:36 Respiratory Rate 18 04/09/20 19:36 Blood Pressure 162/74 04/09/20 19:36 Pulse Oximetry 98 04/09/20 19:36 MDM - Back Pain/Injury MDM Narrative: Medical decision making narrative: Patient is a 34-year-old female comes to the ED with acute on chronic lower back pain. Patient is currently seeing pain management. She received an injection in her lumbar back on Friday. She is now having increasing pain. Denies any bladder or bowel incontinence, loss of sensation in the pelvic region or lower extremity weakness. This is a common acute side effect with these types of injections and usually will last for the first 1 to 3 days. Patient was given a dose of hydrocodone to help with the pain while here in the ED and then discharged. She was told to call pain management clinic tomorrow morning to discuss symptoms. She was told to continue taking her previously prescribed pain meds daily. Patient understood and agreed with plan. Turn to ED precautions given. Discharge Plan Discharge Patient Disposition: Home Clinical Impression: Chronic lower back pain Qualifiers: Back pain laterality: bilateral Sciatica presence: without sciatica Qualified Code(s): M54.5 - Low back pain Condition: Stable Prescriptions: No Action methylprednisolone acetate [Depo-Medrol] 40 mg/mL suspension 40 mg INTRA-ALDO ONCE Qty: 1 RF: 0 bupivacaine (PF) 0.25 % (2.5 mg/mL) solution 1 ml INTRA-ALDO ONCE Qty: 1 RF: 0 lidocaine (PF) 10 mg/mL (1 %) solution 1 ml INTRA-ALDO ONCE Qty: 1 RF: 0 tramadol 50 mg tablet 50 mg PO QID PRN (Reason: chronic pain) Qty: 120 RF: 0 gabapentin 300 mg capsule 300 mg PO TID MDD 3 Qty: 90 RF: 0 atorvastatin 20 mg tablet 20 mg PO DAILY Qty: 30 RF: 0 (DME) Wheeled walker with seat See Rx Instructions .Route .MEDSUPPLY Qty: 1 RF: 0 Levemir FlexTouch U-100 Insuln 100 unit/mL (3 mL) insulin pen 8 unit SUBCUT DAILY Qty: 3 RF: 0 omeprazole 40 mg capsule,delayed release(DR/EC) 40 mg PO DAILY Qty: 90 RF: 0 dulaglutide 1.5 mg/0.5 mL pen injector 1.5 mg SUBCUT Q7D Qty: 2 RF: 2 spironolactone 25 mg tablet 25 mg PO DAILY Qty: 90 RF: 0 metformin 500 mg tablet 500 mg PO BID Qty: 180 RF: 1 atenolol 25 mg tablet 25 mg PO BID Qty: 180 RF: 0 lisinopril-hydrochlorothiazide 20-25 mg tablet 1 tab PO DAILY Qty: 30 RF: 1 (DME) 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 meter [Accu-Chek Kori Plus Meter] Misc See Rx Instructions .ROUTE .MEDSUPPLY Qty: 1 RF: 0 (DME) Accu-Chek Kori Plus test strp Strip See Rx Instructions .ROUTE .MEDSUPPLY Qty: 100 RF: 1 albuterol sulfate [Ventolin HFA] 90 mcg/actuation HFA aerosol inhaler 2 puff INHALATION Q6H PRN (Reason: Shortness Of Breath Or Wheezing) Qty: 8.5 RF: 1 (DME) lancets [Accu-Chek Fastclix Lancet Drum] Misc See Rx Instructions .ROUTE .MEDSUPPLY Qty: 100 RF: 0 citalopram 20 mg tablet 20 mg PO DAILY Qty: 30 RF: 1 Discharge Orders: Discharge Order (Routine); Ordered 04/09/20 Ordered By: Quinn Zhong Referrals: Celina Ruiz DO [Primary Care Provider] - Discharge Diet: Regular Discharge Activity: Increase activity as tolerated Patient Instructions: Chronic Back Pain (ED) Activity Restrictions/Additional Instructions: Follow-up with medical provider as directed. Contact pain management clinic tomorrow morning to discuss pain after injection. continue taking home medications as previously prescribed. Return to the ER or your medical provider if condition worsens. Please read and understand discharge instructions. If any questions, please ask. Discharge Date/Time: 04/09/20 19:37 Coding Level of Care Code ED Lubricator Granulator for Leonela Fwd Exam Comprehensive
[2020-04-09] MEDS: HYDROcodone-acetaminophen 7.5-325 mg Tablet 1 TAB PO (19:24)
[2020-04-09 19:36] VITALS: BP 162/74; PULSE 88; RESP 18; O2SAT 98
== END 2020-04-09 19:37 | disposition home or self-care (01) ==
PROVIDERS: Emergency Provider Physician Assistant; PCP Family Medicine
DX: M54.5 Low back pain (principal); Z79.4 Long term (current) use of insulin; I10 Essential (primary) hypertension; E11.9 Type 2 diabetes mellitus without complications; E78.5 Hyperlipidemia, unspecified; F17.210 Nicotine dependence, cigarettes, uncomplicated
CPT/HCPCS: 12345; 99281; 99282

== ENCOUNTER → 2020-04-10 14:48 | Outpatient (BNVA) | payer MEDICARE, MEDICAID, SELFPAY | PROVIDERS: PCP Family Medicine; Visit Provider Anesthesiology Pain Medicine | DX: G89.29 Other chronic pain (principal); M48.04 Spinal stenosis, thoracic region; M47.814 Spondylosis without myelopathy or radiculopathy, thoracic region; M54.9 Dorsalgia, unspecified; M25.561 Pain in right knee; M25.562 Pain in left knee; M62.838 Other muscle spasm; E66.01 Morbid (severe) obesity due to excess calories; F17.219 Nicotine dependence, cigarettes, with unspecified nicotine-induced disorders; Z79.891 Long term (current) use of opiate analgesic; Z68.44 Body mass index [BMI] 60.0-69.9, adult | CPT/HCPCS: 99213; 99214 ==

== ENCOUNTER → 2020-04-17 08:56 | Outpatient (BNVA) | payer MEDICARE, MEDICAID, SELFPAY | PROVIDERS: Family Provider Family Medicine; PCP Family Medicine; Visit Provider Anesthesiology Pain Medicine | DX: G89.29 Other chronic pain (principal); M48.04 Spinal stenosis, thoracic region; M47.814 Spondylosis without myelopathy or radiculopathy, thoracic region; M54.9 Dorsalgia, unspecified; M25.561 Pain in right knee; M25.562 Pain in left knee; M62.838 Other muscle spasm; F17.219 Nicotine dependence, cigarettes, with unspecified nicotine-induced disorders; Z79.891 Long term (current) use of opiate analgesic | CPT/HCPCS: 99214 ==

== ENCOUNTER → 2020-04-20 10:53 | Outpatient (BNVA) | payer MEDICAID, SELFPAY | PROVIDERS: Family Provider Family Medicine; PCP Family Medicine; Visit Provider Family Medicine | DX: E78.5 Hyperlipidemia, unspecified (principal) | CPT/HCPCS: 80053 ==

== ENCOUNTER 2020-04-25 16:28 | Emergency (ER) | payer MEDICARE, MEDICAID, SELFPAY ==
[2020-04-25 16:41] VITALS: BP 160/88; PULSE 87; RESP 18; TEMP 37.3; O2SAT 98; BMI 64.4
--- NOTE | 2020-04-25 18:15 | ED_ITS ---
HPI - Abdominal Pain General: Chief Complaint: Abdominal Pain Stated Complaint: groin pain Time Seen by Provider: 04/25/20 17:56 Source: patient Mode of arrival: ambulatory Limitations: no limitations History of Present Illness: HPI narrative: 34 yo female that has a hx of ovarian mass for the last 5 months. pt has chronic pain fromthis. pt states today her pain has worsened and is now a 8/10. denies any worsening or improving factors. MD elicited complaint: abdominal pain Onset (ago): month(s) Pain Consistency: intermittent Location: LLQ Severity: moderate Quality: stabbing Radiation: none Migration to: no migration Exacerbating factors: nothing Relieving factors: nothing Associated Symptoms: Denies chills, dysuria and fever(s) Related Data: Date of Last Menstrual Period: 03/12/20 Review of Systems Const: Denies: fever(s), chills, body aches or change in appetite Eyes: Denies: blurry vision or eye discomfort ENMT: Denies: throat pain or dental pain Card: Denies: chest pain Resp: Denies: dyspnea GI: Reports: abdominal pain : Denies: dysuria Musc: Denies: neck pain or back pain Skin/Breast: Denies: rash Neuro: Denies: headache(s) Psych: Denies: depression Sunday/Lymph: Denies: easy bruising All/Imm: Denies: urticaria PFSH ED PFSH: Medical History Amenorrhea Asthma Benign essential HTN Bilateral chronic knee pain Bilateral leg edema Diabetes mellitus, without long-term current use of insulin Dyslipidemia GERD (gastroesophageal reflux disease) 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 Morbid obesity with BMI of 60.0-69.9, adult Muscle spasms of both lower extremities Pain management contract signed Prolonged depression Spinal stenosis, thoracic region Surgical History History of cholecystectomy Family History Father CAD (coronary artery disease) Diabetes Hypertension Family/Other Cancer Mother Diabetes Hypertension Social History Smoking and tobacco status: current every day smoker cigarettes Packs smoked per day: 0.5 Alcohol intake: never Caregiver/support person: Yes Household members: spouse and family Marital status: Current occupational status: disabled Current occupation: disabled History of recent travel: No Female Reproductive History: Date of last menstrual period: 03/12/20 Physical Exam Const: COMMON NORMALS: no acute distress, patient oriented x3 and healthy appearing HENMT: COMMON NORMALS: normocephalic and atraumatic HEAD & SCALP: normocephalic and atraumatic Eye: COMMON NORMALS: Equal, round and reactive pupils present and EOMs intact bilaterally PUPIL: Yes Equal, round and reactive pupils present Neck/C-Spine: COMMON NORMALS: full ROM and supple Chest: COMMONS NORMALS: normal inspection of the chest and normal palpation of entire chest wall Resp: COMMON NORMALS: normal respiratory effort, No retractions, No use of accessory muscles and clear to auscultation bilaterally AUSCULTATION: clear to auscultation bilaterally Cardio: COMMON NORMALS: regular rate, regular rhythm and No murmurs present (Cardio) RATE: regular rate RHYTHM: regular rhythm GI: COMMON NORMALS: Normal to inspection, nondistended, normoactive bowel sounds present, Soft to palpation and no masses PALPATION: Yes Soft to palpation and Yes Tenderness to palpation present (GI) Details: LLQ Extremity: COMMON NORMALS: normal to inspection and full ROM Neuro: COMMON NORMALS: patient oriented x3, moves all extremities and no focal motor deficits Psych: COMMON NORMALS: mental status grossly normal, Normal thought process present and cooperative THOUGHT PROCESS: Normal thought process present Skin: COMMON NORMALS: no rashes or lesions noted and no wounds GENERAL SKIN EXAM: no rashes or lesions noted Course Vital Signs: Vital signs: Vital Signs Temperature 99.1 F 04/25/20 16:41 Pulse Rate 87 04/25/20 18:59 Respiratory Rate 17 04/25/20 19:16 Blood Pressure 114/77 04/25/20 18:59 Pulse Oximetry 96 04/25/20 18:59 MDM - Abdominal Pain MDM Narrative: Medical decision making narrative: Patient presents with an ovarian cyst likely causing her pain. CT scan shows that same cyst with no acute findings. Patient feels much improved here and abdominal exam at dis charge is benign. She is stable for discharge and return if worsening. Lab Data: Labs: Lab Results 08/18/20 08/18/20 08/18/20 Range/Units 18:03 18:12 18:12 WBC 18.5 H (4.0-10.0) 10^3/ uL RBC 5.08 (4.1-5.3) 10^6/u L Hgb 14.3 (11.5-15.3) g/dL Hct 45.0 (37.0-47.0) % MCV 88.6 (81-99) fL MCH 28.1 (28.0-34.0) pg MCHC 31.8 (30.0-36.0) g/dL RDW 12.7 (12.1-15.1) % Plt Count 329 (130-400) 10^3/c mm MPV 11.5 H (7.4-10.4) fL Neut % (Auto) 82.1 % Lymph % (Auto) 10.4 % Walker % (Auto) 5.0 % Eos % (Auto) 1.2 % Baso % (Auto) 0.3 % Neut # (Auto) 15.19 H (1.8-7.7) 10^3/u L Lymph # (Auto) 1.9 (0.8-4.8) 10^3/u L Walker # (Auto) 0.9 (0.2-0.9) 10^3/u L Eos # (Auto) 0.2 (0.0-0.8) 10^3/u L Baso # (Auto) 0.1 (0.0-0.1) 10^3/u L Nucleated RBC % (a uto) 0 % Nucleated RBCs # 0.0 /100WBC Sodium 130 L (136-145) mmol/L Potassium 4.6 (3.5-5.1) mmol/L Chloride 95 L (98-107) mmol/L Carbon Dioxide 24 (22-29) mmol/L Anion Gap 15.6 (5-19) BUN 20 (6-20) mg/dL Creatinine 0.8 (0.5-0.9) mg/dL GFR Calculation 83.1 L (90-130) mL/min Glucose 306 H (65-115) mg/dL Calculated Osmolal ity 278 L (285-295) mOsm/k g Calcium 9.1 (8.5-10.5) mg/dL Total Bilirubin 0.5 (0.15-1.2) mg/dL AST 35 H (0-32) U/L ALT 131 H (0-33) U/L Alkaline Phosphata se 236 H (35-105) IU/L Total Protein 8.0 (6.6-8.7) g/dL Albumin 4.1 (3.5-5.2) g/dL Globulin 3.9 (1.3-4.6) g/dL Lipase 34 (13-60) U/L HCG, Qual Negative (Negative) Discharge Plan Discharge Patient Disposition: Home Clinical Impression: Ovarian cyst Qualifiers: Laterality: left Qualified Code(s): N83.202 - Unspecified ovarian cyst, left side Condition: Stable Prescriptions: [place] 5-325 mg tablet 1 tab PO Q6H PRN (Reason: pain) Qty: 14 RF: 0 ondansetron 4 mg tablet,disintegrating 4 mg PO Q6H PRN (Reason: nausea and vomiting) Qty: 14 RF: 0 No Action gabapentin 300 mg capsule 300 mg PO TID MDD 3 Qty: 90 RF: 0 tramadol 50 mg tablet 50 mg PO QID PRN (Reason: chronic pain) Qty: 120 RF: 0 Levemir FlexTouch U-100 Insuln 100 unit/mL (3 mL) insulin pen 12 unit SUBCUT DAILY RF: 0 montelukast [Singulair] 10 mg tablet 10 mg PO DAILY Qty: 30 RF: 0 (DME) Wheeled walker with seat See Rx Instructions .Route .MEDSUPPLY Qty: 1 RF: 0 tizanidine 4 mg tablet 4 mg PO BID PRN (Reason: muscle spasticity) Qty: 60 RF: 0 omeprazole 40 mg capsule,delayed release(DR/EC) 40 mg PO DAILY Qty: 90 RF: 0 dulaglutide 1.5 mg/0.5 mL pen injector 1.5 mg SUBCUT Q7D Qty: 2 RF: 2 spironolactone 25 mg tablet 25 mg PO DAILY Qty: 90 RF: 0 metformin 500 mg tablet 500 mg PO BID Qty: 180 RF: 1 atenolol 25 mg tablet 25 mg PO BID Qty: 180 RF: 0 lisinopril-hydrochlorothiazide 20-25 mg tablet 1 tab PO DAILY Qty: 30 RF: 1 (DME) 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 meter [Accu-Chek Kori Plus Meter] Misc See Rx Instructions .ROUTE .MEDSUPPLY Qty: 1 RF: 0 (DME) Accu-Chek Kori Plus test strp Strip See Rx Instructions .ROUTE .MEDSUPPLY Qty: 100 RF: 1 albuterol sulfate [Ventolin HFA] 90 mcg/actuation HFA aerosol inhaler 2 puff INHALATION Q6H PRN (Reason: Shortness Of Breath Or Wheezing) Qty: 8.5 RF: 1 citalopram 20 mg tablet 20 mg PO DAILY Qty: 30 RF: 1 (DME) lancets [Accu-Chek Fastclix Lancet Drum] Misc See Rx Instructions .ROUTE .MEDSUPPLY Qty: 100 RF: 1 terbinafine HCl 250 mg tablet 250 mg PO TID RF: 0 Discharge Orders: Discharge Order (Routine); Ordered 04/25/20 Ordered By: Kat Yang Referrals: Celina Ruiz DO [Primary Care Provider] - 1-3 days Discharge Diet: Advance as tolerated Discharge Activity: Resume usual activity Patient Instructions: Ovarian Cyst (ED) Coding Level of Care Code ED Plant Operator Control Room Operator for Chg Fwd Exam Comprehensive
[2020-04-25 18:19] LABS: Basophils # 0.1 10^3/uL (0.0-0.1); Basophils % 0.3 %; Eosinophils # 0.2 10^3/uL (0.0-0.8); Eosinophils % 1.2 %; Hemoglobin 14.3 g/dL (11.5-15.3); Lymphocytes # 1.9 10^3/uL (0.8-4.8); Lymphocytes % 10.4 %; Mean Corpuscular HGB Conc 31.8 g/dL (30.0-36.0); Mean Corpuscular Hemoglobin 28.1 pg (28.0-34.0); Mean Corpuscular Volume 88.6 fL (81-99); Mean Platelet Volume 11.5 fL (7.4-10.4); Monocytes # 0.9 10^3/uL (0.2-0.9); Neutrophils # 15.19 10^3/uL (1.8-7.7); Neutrophils % 82.1 %; Nucleated Red Blood Cells % 0 %; Platelet Count 329 10^3/cmm (130-400); Red Blood Count 5.08 10^6/uL (4.1-5.3); Red Cell Distribution Width 12.7 % (12.1-15.1); White Blood Count 18.5 10^3/uL (4.0-10.0)
[2020-04-25] MEDS: ondansetron 2 mg/ML SDV 2 mL 4 MG IVP (18:20)
[2020-04-25 18:21] VITALS: RESP 14; O2SAT 98
[2020-04-25] MEDS: morphine 4 mg/mL SDV 1 mL IVP (18:21)
--- NOTE | 2020-04-25 18:21 | CTR_ITS ---
PROCEDURE INFORMATION: Exam: CT Abdomen And Pelvis With Contrast Exam date and time: 04/25/2020 7:21 PM Age: 34 years old Clinical indication: Other: Diarrhea; Abdominal pain; Localized; Left lower quadrant (llq); Prior surgery; Surgery type: Gb; Additional info: Abd pain TECHNIQUE: Imaging protocol: Computed tomography of the abdomen and pelvis with intravenous contrast. Radiation optimization: All CT scans at this facility use at least one of these dose optimization techniques: automated exposure control; mA and/or kV adjustment per patient size (includes targeted exams where dose is matched to clinical indication); or iterative reconstruction. Contrast material: OMNI 300; Contrast volume: 95 ml; Contrast route: INTRAVENOUS (IV); COMPARISON: CT abdomen pelvis wo con [id number] 12/04/2019 9:02 AM RADIATION DOSE METRICS: Total DLP (mGy-cm): 1803.02 FINDINGS: Lungs: Limited assessment lung bases without visible evidence of active cardiopulmonary process. Liver: Diffuse fatty infiltration of the liver with hepatomegaly. No visible hepatic mass or cystic structure. Gallbladder and bile ducts: Status post cholecystectomy. Pancreas: Normal. No ductal dilation. Spleen: Normal. No splenomegaly. Adrenals: Normal. No mass. Kidneys and ureters: Normal. No hydronephrosis. Stomach and bowel: Unremarkable. No obstruction. No mucosal thickening. Appendix: The appendix is visualized appears noninflamed. Intraperitoneal space: Unremarkable. No free air. No significant fluid collection. Vasculature: Unremarkable. No abdominal aortic aneurysm. Lymph nodes: Unremarkable. No enlarged lymph nodes. Bladder: Unremarkable as visualized. Reproductive: Again note of a large left ovarian simple cyst dimensions today 12.3 cm x 10.4 cm x 10.7 cm. Bones/joints: No visible active osseous pathology. Soft tissues: Patient's marked obesity results in increased quantum mottle artifact which degrades image quality in detail assessment. CT/CT abdomen pelvis w con* [id number] IMPRESSION: 1. No visible evidence of acute abdominal or pelvic pathologic process. 2. Again note of a large left ovarian simple cyst dimensions today 12.3 cm x 10.4 cm x 10.7 cm. 3. Hepatomegaly with diffuse fatty infiltration of the liver. Radiation Dose CTDIVOL = (mGy): DLP = 1803.02 (mGy-cm)
[2020-04-25 18:27] LABS: HCG Qualitative Urine. Negative (Negative)
[2020-04-25 18:40] LABS: Alanine Aminotransferase 131 U/L (0-33); Albumin Level 4.1 g/dL (3.5-5.2); Alkaline Phosphatase 236 IU/L (35-105); Anion Gap 15.6 (5-19); Aspartate Amino Transferase 35 U/L (0-32); Carbon Dioxide 24 mmol/L (22-29); Chloride 95 mmol/L (98-107); Globulin 3.9 g/dL (1.3-4.6); Glucose 306 mg/dL (65-115); Lipase 34 U/L (13-60); Potassium 4.6 mmol/L (3.5-5.1); Sodium 130 mmol/L (136-145); Total Bilirubin 0.5 mg/dL (0.15-1.2)
[2020-04-25 18:59] VITALS: BP 114/77; PULSE 87; RESP 17; O2SAT 96
[2020-04-25 19:10] LABS: Blood Urea Nitrogen 20 mg/dL (6-20); Calcium 9.1 mg/dL (8.5-10.5); Osmolality Calculated 278 mOsm/kg (285-295)
[2020-04-25 19:16] VITALS: RESP 17
[2020-04-25] MEDS: HYDROmorphone 1 mg/mL INJ 1 mL IVP (19:16)
[2020-04-25 19:20] LABS: Glomerular Filtration Rate 83.1 mL/min (90-130)
[2020-04-25] MEDS: iohexol 300 mg/mL 100 mL Btl IV (19:36)
[2020-04-25 20:34] VITALS: BP 112/71; PULSE 81; RESP 16; O2SAT 96
== END 2020-04-25 20:37 | disposition home or self-care (01) ==
PROVIDERS: Emergency Provider Emergency Medicine; PCP Family Medicine
DX: N83.202 Unspecified ovarian cyst, left side (principal); Z79.4 Long term (current) use of insulin; I10 Essential (primary) hypertension; E11.9 Type 2 diabetes mellitus without complications; E78.5 Hyperlipidemia, unspecified; F17.210 Nicotine dependence, cigarettes, uncomplicated
CPT/HCPCS: 12345; 36415; 74177; 80053; 81025; 83690; 85025; 96374; 96375; 99283; J1170; J2270; J2405; Q9967

== ENCOUNTER 2020-05-01 19:53 | Emergency (ER) | payer MEDICARE, MEDICAID, SELFPAY ==
[2020-05-01 19:58] VITALS: BP 139/84; PULSE 88; RESP 18; TEMP 36.6; O2SAT 97; BMI 64.4
--- NOTE | 2020-05-01 20:18 | ED_ITS ---
HPI - Abdominal Pain General: Chief Complaint: Abdominal Pain Stated Complaint: mass on left side/ sharp pain/ here on 04/25 Time Seen by Provider: 05/01/20 20:09 History of Present Illness: HPI narrative: Patient is a 34-year-old female comes to the ED with back pain. Patient says earlier today she was cleaning up after her dogs and bent over to pick something up and when she came back up she felt muscle pain on the left side of her back. Denies any other trauma or injury to back. Patient says her back pain gets worse with movement. Back pain is rated a 10 out of 10. Denies any numbness tingling to extremities, pain radiating down any legs, bladder or bowel incontinence, pelvic anesthesia. Associated Symptoms: Denies chills, constipation, diarrhea, dysuria, fever(s), hematochezia, hematuria, nausea and vomiting Related Data: Date of Last Menstrual Period: 03/12/20 Review of Systems Const: Denies: fever(s), chills or fatigue Eyes: Denies: change in vision or eye discomfort ENMT: Denies: throat pain, odynophagia, nasal discharge or nasal congestion Card: Denies: chest pain, palpitations, edema, swelling of feet/ankles, dyspnea on exertion or orthopnea Resp: Denies: dyspnea, productive cough or non-productive cough GI: Denies: abdominal pain, nausea, vomiting, diarrhea, constipation or hematochezia : Denies: flank pain, dysuria or hematuria Musc: Reports: back pain; Denies: neck pain or extremity swelling Skin/Breast: Denies: rash or new lesions Neuro: Denies: headache(s), numbness in extremities or weakness in extremities PFSH ED PFSH: Medical History Amenorrhea Asthma Benign essential HTN Bilateral chronic knee pain Bilateral leg edema Diabetes mellitus, without long-term current use of insulin Dyslipidemia GERD (gastroesophageal reflux disease) 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 Morbid obesity with BMI of 60.0-69.9, adult Muscle spasms of both lower extremities Pain management contract signed Prolonged depression Spinal stenosis, thoracic region Surgical History History of cholecystectomy Family History Father CAD (coronary artery disease) Diabetes Hypertension Family/Other Cancer Mother Diabetes Hypertension Social History Smoking and tobacco status: current every day smoker cigarettes Packs smoked per day: 0.5 Alcohol intake: never Caregiver/support person: Yes Household members: spouse and family Marital status: Current occupational status: disabled Current occupation: disabled History of recent travel: No Female Reproductive History: Date of last menstrual period: 03/12/20 Physical Exam Const: COMMON NORMALS: no acute distress, patient oriented x3 and alert GENERAL APPEARANCE: cooperative and comfortable NUTRITIONAL APPEARANCE: obese morbidly obese HENMT: COMMON NORMALS: normocephalic HEAD & SCALP: normocephalic MOUTH: Normal oral and palatal mucosa present THROAT: posterior oropharynx normal and uvula midline Eye: COMMON NORMALS: Equal, round and reactive pupils present PUPIL: Yes Equal, round and reactive pupils present Neck/C-Spine: COMMON NORMALS: supple GENERAL: Yes normal visual inspection Resp: COMMON NORMALS: normal respiratory effort, No retractions, No use of accessory muscles and clear to auscultation bilaterally AUSCULTATION: clear to auscultation bilaterally Cardio: COMMON NORMALS: regular rate, regular rhythm, S1 normal heart sound present, S2 normal heart sound present, No gallops present (Cardio), No clicks present (Cardio), No murmurs present (Cardio) and Peripheral pulses 2+ throughout RATE: regular rate RHYTHM: regular rhythm HEART SOUNDS: S1 normal heart sound present and S2 normal heart sound present PERIPHERAL PULSES: Peripheral pulses 2+ throughout GI: COMMON NORMALS: Normal to inspection, nondistended, normoactive bowel sounds present, Soft to palpation, non-tender and no masses PALPATION: Yes Soft to palpation : COMMON NORMALS: Yes no CVA tenderness BLADDER/KIDNEY EXAM: Yes no CVA tenderness Back/Pelvis: COMMON NORMALS: no CVA tenderness THORACIC SPINE/UPPER BACK: No thoracic spinal tenderness and Yes paraspinal muscle tenderness Thoracic paraspinal muscle tenderness: left Extremity: COMMON NORMALS: normal to inspection Neuro: COMMON NORMALS: patient oriented x3 SENSORIUM/ORIENTATION: Yes alert GAIT: Yes Normal gait present Skin: COMMON NORMALS: no rashes or lesions noted GENERAL SKIN EXAM: no rashes or lesions noted and dry skin Course Vital Signs: Vital signs: Vital Signs Temperature 97.9 F 05/01/20 19:58 Pulse Rate 88 05/01/20 19:58 Respiratory Rate 18 05/01/20 19:58 Blood Pressure 139/84 05/01/20 19:58 Pulse Oximetry 97 05/01/20 19:58 MDM - Abdominal Pain MDM Narrative: Medical decision making narrative: Patient is a 34-year-old female comes to the ED with left sided back pain. Back pain started right after she was bending over to pick something up and when she came up she felt pain on the left side of her back. Denies any pain radiating down the legs, numbness or tingling to extremities, pelvic anesthesia, bladder or bowel incontinence. Patient had some left paraspinal muscle tenderness of the thoracic spine. Patient was given a shot of Toradol and Norflex while here in the ED. She was sent home with a prescription for ibuprofen 600 mg and told to continue taking her already prescribed muscle relaxer tizanidine. Patient was told to follow-up with PCP in 5 to 7 days for reevaluation. Return to ED precautions given. Patient understood and agreed with plan. Discharge Plan Discharge Patient Disposition: Home Clinical Impression: Back pain due to injury Condition: Stable Prescriptions: New ibuprofen 600 mg tablet 600 mg PO Q8H PRN (Reason: pain) Qty: 30 RF: 0 No Action gabapentin 300 mg capsule 300 mg PO TID MDD 3 Qty: 90 RF: 0 tramadol 50 mg tablet 50 mg PO QID PRN (Reason: chronic pain) Qty: 120 RF: 0 Levemir FlexTouch U-100 Insuln 100 unit/mL (3 mL) insulin pen 12 unit SUBCUT DAILY RF: 0 montelukast [Singulair] 10 mg tablet 10 mg PO DAILY Qty: 30 RF: 0 (DME) Wheeled walker with seat See Rx Instructions .Route .MEDSUPPLY Qty: 1 RF: 0 tizanidine 4 mg tablet 4 mg PO BID PRN (Reason: muscle spasticity) Qty: 60 RF: 0 omeprazole 40 mg capsule,delayed release(DR/EC) 40 mg PO DAILY Qty: 90 RF: 0 dulaglutide 1.5 mg/0.5 mL pen injector 1.5 mg SUBCUT Q7D Qty: 2 RF: 2 spironolactone 25 mg tablet 25 mg PO DAILY Qty: 90 RF: 0 metformin 500 mg tablet 500 mg PO BID Qty: 180 RF: 1 atenolol 25 mg tablet 25 mg PO BID Qty: 180 RF: 0 lisinopril-hydrochlorothiazide 20-25 mg tablet 1 tab PO DAILY Qty: 30 RF: 1 (DME) 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 meter [Accu-Chek Kori Plus Meter] Misc See Rx Instructions .ROUTE .MEDSUPPLY Qty: 1 RF: 0 (DME) Accu-Chek Kori Plus test strp Strip See Rx Instructions .ROUTE .MEDSUPPLY Qty: 100 RF: 1 albuterol sulfate [Ventolin HFA] 90 mcg/actuation HFA aerosol inhaler 2 puff INHALATION Q6H PRN (Reason: Shortness Of Breath Or Wheezing) Qty: 8.5 RF: 1 citalopram 20 mg tablet 20 mg PO DAILY Qty: 30 RF: 1 (DME) lancets [Accu-Chek Fastclix Lancet Drum] Misc See Rx Instructions .ROUTE .MEDSUPPLY Qty: 100 RF: 1 terbinafine HCl 250 mg tablet 250 mg PO TID RF: 0 [place] 5-325 mg tablet 1 tab PO Q6H PRN (Reason: pain) Qty: 14 RF: 0 ondansetron 4 mg tablet,disintegrating 4 mg PO Q6H PRN (Reason: nausea and vomiting) Qty: 14 RF: 0 Discharge Orders: Discharge Order (Routine); Ordered 05/01/20 Ordered By: Quinn Zhong Referrals: Celina Ruiz DO [Primary Care Provider] - Discharge Diet: Regular Discharge Activity: Increase activity as tolerated Patient Instructions: Back Pain (ED) Activity Restrictions/Additional Instructions: Follow-up with medical provider as directed in 5-7 days. Continue taking home medications as prescribed. Continue taking your tizanidine as a muscle relaxer to help with symptoms. I am also send you home with a prescription for 600 mg ibuprofen. Ice, stretch and massage back muscle pain daily. Limit lifting of less than 10 pounds for the next 3 days then advance as tolerated. Return to the ER or your medical provider if condition worsens. Please read and understand discharge instructions. If any questions, please ask. 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
[2020-05-01] MEDS: ketorolac 60 mg/2 mL INJ IM (20:38)
[2020-05-01] MEDS: orphenadrine 30 mg/mL Inj 2 mL 60 MG IM (20:39)
[2020-05-01 20:41] VITALS: BP 135/87; PULSE 98; RESP 16; O2SAT 98
== END 2020-05-01 20:42 | disposition home or self-care (01) ==
PROVIDERS: Emergency Provider Physician Assistant; PCP Family Medicine
DX: S29.9XXA Unspecified injury of thorax, initial encounter (principal); X50.1XXA Overexertion from prolonged static or awkward postures, initial encounter; Z79.4 Long term (current) use of insulin; F17.210 Nicotine dependence, cigarettes, uncomplicated; I10 Essential (primary) hypertension; E11.9 Type 2 diabetes mellitus without complications; E78.5 Hyperlipidemia, unspecified
CPT/HCPCS: 12345; 96372; 99281; 99283; J1885; J2360

== ENCOUNTER 2020-05-13 17:23 | Emergency (ER) | payer MEDICARE, MEDICAID, SELFPAY ==
[2020-05-13 17:48] VITALS: BP 185/105; PULSE 100; RESP 18; TEMP 36.4; O2SAT 98; BMI 64.4
--- NOTE | 2020-05-13 18:05 | W.ED.FALL ---
HPI - Fall General: Chief Complaint: Fall Stated Complaint: FALL LEFT KNEE PAIN Time Seen by Provider: 05/13/20 18:04 History of Present Illness: MD complaint: fall Onset (ago): hour(s) (Earlier Today) Fall from: standing Place fall occurred: home Loss of consciousness: None Prolonged down time: no Symptoms prior to fall: none Context: tripped/slipped Location of injury: other Location of injury - extremities: Left: knee (Patient also has ecchymosis on left knee.) Severity scale (1-10): 10 Quality: aching Associated symptoms-after fall: Denies abdominal pain, chest pain, headache(s), hematuria or neck pain Review of Systems Const: Denies: fever(s), chills or fatigue Eyes: Denies: change in vision or eye discomfort ENMT: Denies: throat pain, odynophagia, nasal discharge or nasal congestion Card: Denies: chest pain, palpitations, edema, swelling of feet/ankles, dyspnea on exertion or orthopnea Resp: Denies: dyspnea, productive cough or non-productive cough GI: Denies: abdominal pain, nausea, vomiting, diarrhea, constipation or hematochezia : Denies: flank pain, dysuria or hematuria Musc: Reports: extremity pain (left knee); Denies: neck pain, back pain or extremity swelling Skin/Breast: Denies: rash or new lesions Neuro: Denies: headache(s), numbness in extremities or weakness in extremities PFSH ED PFSH: Medical History Amenorrhea Asthma Benign essential HTN Bilateral chronic knee pain Bilateral leg edema Diabetes mellitus, without long-term current use of insulin Dyslipidemia 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 Morbid obesity with BMI of 60.0-69.9, adult Muscle spasms of both lower extremities Pain management contract signed Prolonged depression Spinal stenosis, thoracic region Surgical History History of cholecystectomy Family History Father CAD (coronary artery disease) Diabetes Hypertension Family/Other Cancer Mother Diabetes Hypertension Social History Smoking and tobacco status: current every day smoker cigarettes Packs smoked per day: 0.5 Alcohol intake: never Caregiver/support person: Yes Household members: spouse and family Marital status: Current occupational status: disabled Current occupation: disabled History of recent travel: No Female Reproductive History: Date of last menstrual period: 03/12/20 Physical Exam Const: COMMON NORMALS: no acute distress, patient oriented x3 and alert GENERAL APPEARANCE: cooperative and comfortable NUTRITIONAL APPEARANCE: obese morbidly obese HENMT: COMMON NORMALS: normocephalic HEAD & SCALP: normocephalic MOUTH: Normal oral and palatal mucosa present THROAT: posterior oropharynx normal and uvula midline Neck/C-Spine: COMMON NORMALS: supple GENERAL: Yes normal visual inspection Resp: COMMON NORMALS: normal respiratory effort, No retractions, No use of accessory muscles and clear to auscultation bilaterally AUSCULTATION: clear to auscultation bilaterally Cardio: COMMON NORMALS: regular rate, regular rhythm, S1 normal heart sound present, S2 normal heart sound present, No gallops present (Cardio), No clicks present (Cardio), No murmurs present (Cardio) and Peripheral pulses 2+ throughout RATE: regular rate RHYTHM: regular rhythm HEART SOUNDS: S1 normal heart sound present and S2 normal heart sound present PERIPHERAL PULSES: Peripheral pulses 2+ throughout GI: COMMON NORMALS: Normal to inspection, nondistended, normoactive bowel sounds present, Soft to palpation, non-tender and no masses PALPATION: Yes Soft to palpation : COMMON NORMALS: Yes no CVA tenderness BLADDER/KIDNEY EXAM: Yes no CVA tenderness Back/Pelvis: COMMON NORMALS: no CVA tenderness Extremity: NARRATIVE EXTREMITY EXAM: Patient has some tenderness upon palpation over the left knee. She is small circular spot of ecchymosis on the superior lateral aspect of the left knee. Neurovascular disc [place] intact. GENERAL: Yes normal exam except as noted Neuro: COMMON NORMALS: patient oriented x3 and moves all extremities SENSORIUM/ORIENTATION: Yes alert GAIT: Yes Normal gait present Skin: GENERAL SKIN EXAM: dry skin and ecchymosis (over left knee) Course Vital Signs: Vital signs: Vital Signs Temperature 97.5 F L 05/13/20 17:48 Pulse Rate 100 05/13/20 17:48 Respiratory Rate 18 05/13/20 17:48 Blood Pressure 172/75 05/13/20 19:19 Pulse Oximetry 98 05/13/20 17:48 MDM - Fall MDM Narrative: Medical decision making narrative: Patient is a 34-year-old female who comes to the ED with left knee pain after having a fall. Physical exam shows some mild tenderness upon palpation of the knee along with small ecchymosis on knee as well. X-ray of left knee showed no acute fractures or findings. Did show some soft tissue effusion of the suprapatellar bursa. Patient was diagnosed with suprapatellar bursitis. She was discharged and told to ice, elevate and take ibuprofen for pain. Follow-up with PCP in 7 to 10 days. Return to ED precautions given. Patient understood and agreed with plan. Imaging Data^: Xray Ortho: Attestation: I personally reviewed and interpreted this imaging study as follows: My impression: No acute fractures or findings. Pending final radiology report. Radiologist's impression: [address] [address] XRay Report Signed Patient: Lorraine Curry Unit #: [id number] : 1985 Age/Sex: 34 / F ADM Date: 05/13/20 Loc: ER Room/Bed: Attending Dr: Ordering Provider/Ordering MD: Quinn Zhong Date of Service: 05/13/20 Procedure(s): XR knee LT 3V* 06851 Accession Number(s): [id number] Report Number: [id number] PROCEDURE INFORMATION: Exam: XR Left Knee Exam date and time: 05/13/2020 6:36 PM Age: 34 years old Clinical indication: Injury or trauma; Fall; Initial encounter; Blunt trauma; Knee; Bilateral; Additional info: Left knee pain TECHNIQUE: Imaging protocol: XR Left knee. Views: 3 views. COMPARISON: No relevant prior studies available. FINDINGS: Bones/joints: Normal. Soft tissues: Soft tissue effusion is seen in the suprapatellar bursa XR/XR knee LT 3V* [id number] IMPRESSION: 1. No acute bone abnormality 2. Soft tissue effusion suprapatellar bursa Dictated By: Antoine Mcintosh Signed By: Antoine Mcintosh Signed Date/Time: 05/13/201909 DD/ 07 Discharge Plan Discharge Patient Disposition: Home Clinical Impression: Suprapatellar bursitis of left knee Condition: Stable Prescriptions: No Action gabapentin 300 mg capsule 300 mg PO TID MDD 3 Qty: 90 RF: 0 tramadol 50 mg tablet 50 mg PO QID PRN (Reason: chronic pain) Qty: 120 RF: 0 Levemir FlexTouch U-100 Insuln 100 unit/mL (3 mL) insulin pen 12 unit SUBCUT DAILY RF: 0 montelukast [Singulair] 10 mg tablet 10 mg PO DAILY Qty: 30 RF: 0 (DME) Wheeled walker with seat See Rx Instructions .Route .MEDSUPPLY Qty: 1 RF: 0 tizanidine 4 mg tablet 4 mg PO BID PRN (Reason: muscle spasticity) Qty: 60 RF: 0 dulaglutide 1.5 mg/0.5 mL pen injector 1.5 mg SUBCUT Q7D Qty: 2 RF: 2 spironolactone 25 mg tablet 25 mg PO DAILY Qty: 90 RF: 0 metformin 500 mg tablet 500 mg PO BID Qty: 180 RF: 1 atenolol 25 mg tablet 25 mg PO BID Qty: 180 RF: 0 (DME) 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 meter [Accu-Chek Kori Plus Meter] Misc See Rx Instructions .ROUTE .MEDSUPPLY Qty: 1 RF: 0 (DME) Accu-Chek Kori Plus test strp Strip See Rx Instructions .ROUTE .MEDSUPPLY Qty: 100 RF: 1 (DME) lancets [Accu-Chek Fastclix Lancet Drum] Misc See Rx Instructions .ROUTE .MEDSUPPLY Qty: 100 RF: 1 lisinopril-hydrochlorothiazide 20-25 mg tablet 1 tab PO DAILY Qty: 30 RF: 1 citalopram 20 mg tablet 20 mg PO DAILY Qty: 30 RF: 1 albuterol sulfate [Ventolin HFA] 90 mcg/actuation HFA aerosol inhaler 2 puff INHALATION Q6H PRN (Reason: Shortness Of Breath Or Wheezing) Qty: 8.5 RF: 1 omeprazole 40 mg capsule,delayed release(DR/EC) 40 mg PO DAILY Qty: 90 RF: 0 terbinafine HCl 250 mg tablet 250 mg PO TID RF: 0 [place] 5-325 mg tablet 1 tab PO Q6H PRN (Reason: pain) Qty: 14 RF: 0 ondansetron 4 mg tablet,disintegrating 4 mg PO Q6H PRN (Reason: nausea and vomiting) Qty: 14 RF: 0 ibuprofen 600 mg tablet 600 mg PO Q8H PRN (Reason: pain) Qty: 30 RF: 0 Discharge Orders: Discharge Order (Routine); Ordered 05/13/20 Ordered By: Quinn Zhong Referrals: Celina Ruiz DO [Primary Care Provider] - Discharge Diet: Regular Discharge Activity: Increase activity as tolerated Patient Instructions: Knee Pain (ED) Activity Restrictions/Additional Instructions: Follow-up with medical provider as directed. Rest, ice and elevate left leg. Take ibuprofen or Tylenol for pain. Take medications as prescribed. Return to the ER or your medical provider if condition worsens. Please read and understand discharge instructions. If any questions, please ask. 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
--- NOTE | 2020-05-13 18:17 | XRR_ITS ---
PROCEDURE INFORMATION: Exam: XR Left Knee Exam date and time: 05/13/2020 6:36 PM Age: 34 years old Clinical indication: Injury or trauma; Fall; Initial encounter; Blunt trauma; Knee; Bilateral; Additional info: Left knee pain TECHNIQUE: Imaging protocol: XR Left knee. Views: 3 views. COMPARISON: No relevant prior studies available. FINDINGS: Bones/joints: Normal. Soft tissues: Soft tissue effusion is seen in the suprapatellar bursa XR/XR knee LT 3V* [id number] IMPRESSION: 1. No acute bone abnormality 2. Soft tissue effusion suprapatellar bursa
[2020-05-13] MEDS: HYDROcodone-acetaminophen 5-325 mg Tablet 1 TAB PO (18:23)
[2020-05-13 19:19] VITALS: BP 172/75
== END 2020-05-13 19:22 | disposition home or self-care (01) ==
PROVIDERS: Emergency Provider Physician Assistant; PCP Family Medicine
DX: M70.52 Other bursitis of knee, left knee (principal); Z79.4 Long term (current) use of insulin; I10 Essential (primary) hypertension; E11.9 Type 2 diabetes mellitus without complications; E78.5 Hyperlipidemia, unspecified; F17.210 Nicotine dependence, cigarettes, uncomplicated
CPT/HCPCS: 12345; 73562; 99281; 99283

== ENCOUNTER → 2020-05-18 09:16 | Outpatient (BNVA) | payer MEDICARE, MEDICAID, SELFPAY | PROVIDERS: PCP Family Medicine; Visit Provider Anesthesiology Pain Medicine | DX: G89.29 Other chronic pain (principal); M47.814 Spondylosis without myelopathy or radiculopathy, thoracic region; M48.04 Spinal stenosis, thoracic region; M54.9 Dorsalgia, unspecified; M54.6 Pain in thoracic spine; M25.561 Pain in right knee; M25.562 Pain in left knee; M62.838 Other muscle spasm; F17.219 Nicotine dependence, cigarettes, with unspecified nicotine-induced disorders | CPT/HCPCS: 99213; 99214 ==

== ENCOUNTER → 2020-05-19 10:07 | Outpatient (BNVA) | payer MEDICARE, MEDICAID, SELFPAY | PROVIDERS: Family Provider Family Medicine; PCP Family Medicine; Visit Provider Family Medicine | DX: R79.89 Other specified abnormal findings of blood chemistry (principal) | CPT/HCPCS: 80053 ==

== ENCOUNTER 2020-05-23 14:17 | Emergency (ER) | payer MEDICARE, MEDICAID, SELFPAY ==
[2020-05-23 14:25] VITALS: BP 141/86; PULSE 94; RESP 15; TEMP 36.5; O2SAT 94; BMI 66.4
--- NOTE | 2020-05-23 14:51 | ED_ITS ---
HPI - Abdominal Pain General: Chief Complaint: Abdominal Pain Stated Complaint: abdominal pain, nausea Time Seen by Provider: 05/23/20 14:42 History of Present Illness: HPI narrative: 34-year-old female comes in complaining of abdominal pain she is super morbidly obese is difficult to examine. She states pain started last night's in the right lower quadrant she has a left ovarian cyst that is quite large previously seen on CT she is scheduled to have removed in June. This began last night she had nausea and some diarrhea but no vomiting decreased appetite she has not noted any fever. MD elicited complaint: abdominal pain Pertinent past history: other (Ovarian cyst) Onset (ago): hour(s) Pain Consistency: constant Location: RLQ Severity: severe Quality: stabbing Radiation: suprapubic Migration to: no migration Exacerbating factors: movement Relieving factors: rest Context: other (Left ovarian cyst) Associated Symptoms: Reports anorexia, bloating, GI cramping, diarrhea, nausea and poor appetite; Denies change in bowel habits, change in stool character, chills, coffee ground emesis, constipation, dyspepsia, dysuria, excessive flatus, fever(s), heartburn, hematochezia, hematuria, hematemesis, fecal incontinence, loose stools, melena, syncope and vomiting Related Data: Date of Last Menstrual Period: 03/12/20 Review of Systems Const: Denies: fever(s) or chills ENMT: Denies: throat pain, ear or mastoid pain, nasal discharge or nasal congestion Card: Denies: syncope Resp: Denies: dyspnea, productive cough or non-productive cough GI: Reports: nausea, diarrhea, bloating and GI cramping; Denies: vomiting, hematemesis, coffee ground emesis, heartburn, constipation, excessive flatus, fecal incontinence, change in bowel habits, change in stool character, hematochezia or melena : Denies: dysuria or hematuria Skin/Breast: Denies: rash or pruritus PFSH ED PFSH: Medical History Amenorrhea Asthma Benign essential HTN Bilateral chronic knee pain Bilateral leg edema Dyslipidemia GERD (gastroesophageal reflux disease) long-term (current) use of opiate analgesic Morbid obesity with BMI of 60.0-69.9, adult Muscle spasms of both lower extremities Pain management contract signed Prolonged depression Spinal stenosis, thoracic region Type 2 diabetes mellitus, with long-term current use of insulin Surgical History History of cholecystectomy Family History Father CAD (coronary artery disease) Diabetes Hypertension Family/Other Cancer Mother Diabetes Hypertension Social History Smoking and tobacco status: current every day smoker cigarettes Packs smoked pe r day: 0.5 Alcohol intake: never Substance/Drug Use: never Caregiver/support person: Yes Household members: spouse and family Marital status: Current occupational status: disabled Current occupation: disabled History of recent travel: No Female Reproductive History: Date of last menstrual period: 03/12/20 Physical Exam Const: COMMON NORMALS: no acute distress GENERAL APPEARANCE: cooperative and comfortable ORIENTATION/CONSCIOUSNESS: Yes awake, Yes oriented to person, Yes oriented to place and Yes oriented to time HENMT: COMMON NORMALS: normocephalic, atraumatic and hearing grossly normal bilaterally HEAD & SCALP: normocephalic and atraumatic Eye: COMMON NORMALS: Equal, round and reactive pupils present, EOMs intact bilaterally, conjunctivae normal and no scleral icterus CONJUNCTIVA: Yes conjunctivae normal PUPIL: Yes Equal, round and reactive pupils present Neck/C-Spine: COMMON NORMALS: full ROM, no lymphadenopathy, supple and no JVD Lymph: LYMPHATIC: no lymphadenopathy noted and no lymphedema noted Resp: COMMON NORMALS: normal respiratory effort, No retractions, No use of accessory muscles and clear to auscultation bilaterally AUSCULTATION: clear to auscultation bilaterally Cardio: COMMON NORMALS: no JVD, regular rate, regular rhythm and No murmurs present (Cardio) RATE: regular rate RHYTHM: regular rhythm GI: COMMON NORMALS: No hepatosplenomegaly present AUSCULTATION: Yes normoactive bowel sounds PALPATION: Yes Tenderness to palpation present (GI) Details: RLQ, No Guarding due to palpation present (GI) and Yes No hepatosplenomegaly present OTHER: Persistent super morbidly obese even with mild palpation across the abdominal wall she reports exquisite pain disproportionate to exam Extremity: COMMON NORMALS: normal to inspection, capillary refill normal, no clubbing, cyanosis or edema, no calf tenderness and no pedal edema Neuro: SENSORIUM/ORIENTATION: Yes oriented to person, Yes oriented to place and Yes oriented to time Skin: COMMON NORMALS: no rashes or lesions noted GENERAL SKIN EXAM: no rashes or lesions noted Course Vital Signs: Vital signs: Vital Signs Temperature 97.7 F 05/23/20 14:25 Pulse Rate 94 05/23/20 14:25 Respiratory Rate 15 05/23/20 14:25 Blood Pressure 141/86 05/23/20 14:25 Pulse Oximetry 94 05/23/20 14:25 MDM - Abdominal Pain MDM Narrative: Medical decision making narrative: CT does not show anything acute ovarian cyst is similar in size so it may be referred pain her white count is little elevated but she frequently has had that in previous evaluations during exam even light touch to the abdominal wall cause pain disproportionate to exam. She may just have a mild gastroenteritis said no significant notation on the CT itself clear liquid diet for 2 to 3 days and advance as tolerated can use diclofenac with small amounts of food as needed also Zofran PRN and follow- up as needed. Return if she has further problems. Lab Data: Labs: Lab Results 05/23/20 05/23/20 05/23/20 Range/Units 14:45 14:45 15:13 WBC 15.7 H (4.0-10.0) 10^3/ uL RBC 5.14 (4.1-5.3) 10^6/u L Hgb 14.5 (11.5-15.3) g/dL Hct 45.9 (37.0-47.0) % MCV 89.3 (81-99) fL MCH 28.2 (28.0-34.0) pg MCHC 31.6 (30.0-36.0) g/dL RDW 12.9 (12.1-15.1) % Plt Count 316 (130-400) 10^3/c mm MPV 11.5 H (7.4-10.4) fL Neut % (Auto) 81.6 % Lymph % (Auto) 10.5 % [place] % (Auto) 5.5 % Eos % (Auto) 1.2 % Baso % (Auto) 0.4 % Neut # (Auto) 12.80 H (1.8-7.7) 10^3/u L Lymph # (Auto) 1.7 (0.8-4.8) 10^3/u L [place] # (Auto) 0.9 (0.2-0.9) 10^3/u L Eos # (Auto) 0.2 (0.0-0.8) 10^3/u L Baso # (Auto) 0.1 (0.0-0.1) 10^3/u L Nucleated RBC % (a uto) 0 % Nucleated RBCs # 0.0 /100WBC Sodium 131 L (136-145) mmol/L Potassium 4.3 (3.5-5.1) mmol/L Chloride 95 L (98-107) mmol/L Carbon Dioxide 24 (22-29) mmol/L Anion Gap 16.3 (5-19) BUN 12 (6-20) mg/dL Creatinine 0.7 (0.5-0.9) mg/dL GFR Calculation 97.0 (90-130) mL/min Glucose 257 H (65-115) mg/dL Calculated Osmolal ity 277 L (285-295) mOsm/k g Calcium 9.0 (8.5-10.5) mg/dL Total Bilirubin 0.6 (0.15-1.2) mg/dL AST 57 H (0-32) U/L ALT 93 H (0-33) U/L Alkaline Phosphata se 150 H (35-105) IU/L Total Protein 8.2 (6.6-8.7) g/dL Albumin 4.1 (3.5-5.2) g/dL Globulin 4.1 (1.3-4.6) g/dL Urine Color Yellow (Yellow) Urine Appearance Sl hazy (CLEAR) Urine pH 6 (5-7) Ur Specific Gravit y 1.010 (1.005-1.030) Urine Protein Neg (Negative) Urine Glucose (UA) 4+ H (Normal) Urine Ketones Negative (Negative) Urine Blood Neg (Negative) Urine Nitrate Negative (Negative) Urine Bilirubin Neg (Negative) Urine Urobilinogen Norm (Negative) mg/dL Ur Leukocyte Maame ase Negative (Negative) Urine RBC 0-4 H (0-2) /hpf Urine WBC 0-4 H (0-5) /hpf Ur Squamous Epith Cells 5-10 H (0-5) /hpf Amorphous Sediment Not Reportable Urine Bacteria 1+ H (NONE) /hpf Urine Mucus Trace /hpf Urine Yeast Trace /hpf Discharge Plan Discharge Patient Disposition: Home Clinical Impression: Cyst of left ovary, Type 2 diabetes mellitus, with long-term current use of insulin Condition: Stable Prescriptions: New Zofran 4 mg tablet 4 mg PO Q6H PRN (Reason: nausea and vomiting) Qty: 20 RF: 0 diclofenac sodium 75 mg tablet,delayed release (DR/EC) 75 mg PO Q12H PRN (Reason: pain) Qty: 20 RF: 0 No Action Levemir FlexTouch U-100 Insuln 100 unit/mL (3 mL) insulin pen 30 unit SUBCUT DAILY Qty: 15 RF: 0 (DME) Wheeled walker with seat See Rx Instructions .Route .MEDSUPPLY Qty: 1 RF: 0 tramadol 50 mg tablet 50 mg PO QID PRN (Reason: chronic pain) Qty: 120 RF: 0 tizanidine 4 mg tablet 4 mg PO BID PRN (Reason: muscle spasticity) Qty: 60 RF: 0 gabapentin 300 mg capsule 300 mg PO TID MDD 3 Qty: 90 RF: 0 dulaglutide 1.5 mg/0.5 mL pen injector 1.5 mg SUBCUT Q7D Qty: 2 RF: 2 metformin 500 mg tablet 500 mg PO BID Qty: 180 RF: 1 atenolol 25 mg tablet 25 mg PO BID Qty: 180 RF: 0 (DME) 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 meter [Accu-Chek Kori Plus Meter] Misc See Rx Instructions .ROUTE .MEDSUPPLY Qty: 1 RF: 0 (DME) Accu-Chek Kori Plus test strp Strip See Rx Instructions .ROUTE .MEDSUPPLY Qty: 100 RF: 1 (DME) lancets [Accu-Chek Fastclix Lancet Drum] Misc See Rx Instructions .ROUTE .MEDSUPPLY Qty: 100 RF: 1 lisinopril-hydrochlorothiazide 20-25 mg tablet 1 tab PO DAILY Qty: 30 RF: 1 citalopram 20 mg tablet 20 mg PO DAILY Qty: 30 RF: 1 albuterol sulfate [Ventolin HFA] 90 mcg/actuation HFA aerosol inhaler 2 puff INHALATION Q6H PRN (Reason: Shortness Of Breath Or Wheezing) Qty: 8.5 RF: 1 omeprazole 40 mg capsule,delayed release(DR/EC) 40 mg PO DAILY Qty: 90 RF: 0 spironolactone 25 mg tablet 25 mg PO DAILY Qty: 90 RF: 0 montelukast [Singulair] 10 mg tablet 10 mg PO DAILY Qty: 90 RF: 1 Discharge Orders: Discharge Order (Routine); Ordered 05/23/20 Ordered By: Selvin Mann Referrals: Celina Ruiz DO [Primary Care Provider] - Discharge Diet: Usual diet Discharge Activity: Resume usual activity Activity Restrictions/Additional Instructions: Aloe up with gynecology as planned Coding Level of Care Code ED Outboard System Operator for Chg Fwd Exam Comprehensive
[2020-05-23 14:54] LABS: Basophils # 0.1 10^3/uL (0.0-0.1); Basophils % 0.4 %; Eosinophils # 0.2 10^3/uL (0.0-0.8); Eosinophils % 1.2 %; Hematocrit 45.9 % (37.0-47.0); Hemoglobin 14.5 g/dL (11.5-15.3); Lymphocytes # 1.7 10^3/uL (0.8-4.8); Lymphocytes % 10.5 %; Mean Corpuscular HGB Conc 31.6 g/dL (30.0-36.0); Mean Corpuscular Hemoglobin 28.2 pg (28.0-34.0); Mean Corpuscular Volume 89.3 fL (81-99); Mean Platelet Volume 11.5 fL (7.4-10.4); Monocytes # 0.9 10^3/uL (0.2-0.9); Monocytes % 5.5 %; Neutrophils % 81.6 %; Nucleated Red Blood Cells % 0 %; Platelet Count 316 10^3/cmm (130-400); Red Blood Count 5.14 10^6/uL (4.1-5.3); Red Cell Distribution Width 12.9 % (12.1-15.1); White Blood Count 15.7 10^3/uL (4.0-10.0)
--- NOTE | 2020-05-23 14:55 | CT_ITS ---
WS: [id number] CT ABDOMEN AND PELVIS WITH CONTRAST HISTORY: Abdominal pain. TECHNIQUE: Imaging performed of the abdomen and pelvis with IV contrast. Single phase imaging of the abdomen. Coronal and sagittal reformats are submitted. All CT scans at [facility] use at least one of these dose optimization techniques: automated exposure control; mA and/or kV adjustment per patient size (includes targeted exams where dose is matched to clinical indication); or iterativ e reconstruction. IV CONTRAST: Omnipaque 300; 95 mL IV. Oral contrast: No DLP: 1893.61 mGy.cm COMPARISON: 04/25/2020 Lower thorax: Lung bases are clear. Heart is normal size. No hiatal hernia. Liver/biliary system: Moderate hepatomegaly and hepatic steatosis. No mass or bile duct dilatation. Gallbladder: Status post cholecystectomy. Pancreas: Normal. Spleen: Normal. Adrenal glands: Normal. Right kidney: Normal. Left kidney: Normal. Aorta: Normal. Lymphadenopathy: None. Free fluid: None. GI tract: Normal appendix. No GI tract obstruction. No diverticulosis. Abdominal wall: Unremarkable abdominal wall. No hernia. Pelvis: Large cystic mass inseparable from the LEFT ovary measures 11.8 x 10.4 x 8.7 cm. Mass is inse parable from the LEFT ovary and also the fundus of the uterus. No enlargement of the ovary to suggest torsion at this time by CT. No significant change in size of the simple appearing cyst. No enhanceme nt or mural nodule. Bones: Unremarkable. CT/CT abdomen pelvis w con* [id number] IMPRESSION: 1. Unchanged large pelvic cyst probably arising from the LEFT ovary measures 1 1.8 x 10.4 x 8.7 cm. Ovarian torsion is a risk considering the size of this cys t. Recommend RUSTIC FENCE BUILDER evaluation. Cystadenoma within the differential. 2. Normal appendix. 3. Prior cholecystectomy. 4. Moderate hepatomegaly and hepatic steatosis.
[2020-05-23 15:26] LABS: Alanine Aminotransferase 93 U/L (0-33); Albumin Level 4.1 g/dL (3.5-5.2); Alkaline Phosphatase 150 IU/L (35-105); Anion Gap 16.3 (5-19); Aspartate Amino Transferase 57 U/L (0-32); Blood Urea Nitrogen 12 mg/dL (6-20); Carbon Dioxide 24 mmol/L (22-29); Chloride 95 mmol/L (98-107); Globulin 4.1 g/dL (1.3-4.6); Glucose 257 mg/dL (65-115); Osmolality Calculated 277 mOsm/kg (285-295); Potassium 4.3 mmol/L (3.5-5.1); Sodium 131 mmol/L (136-145); Total Bilirubin 0.6 mg/dL (0.15-1.2); Total Protein 8.2 g/dL (6.6-8.7)
[2020-05-23 15:33] LABS: Add Urine Microscopic? YES; Bilirubin Urine Neg (Negative); Blood Urine Neg (Negative); Glucose Urine UA 4+ (Normal); Ketones Urine Negative (Negative); Leukocyte Esterase Urine Negative (Negative); Nitrate Urine Negative (Negative); Protein Urine Neg (Negative); Urine Appearance SL Hazy (CLEAR); Urine Color Yellow (Yellow); Urobilinogen Urine Norm (Negative); pH Urine 6 (5-7)
[2020-05-23 15:35] LABS: Bacteria Urine 1+ /hpf; RBC Urine 0-4 /hpf (0-2); WBC Urine 0-4 /hpf (0-5)
[2020-05-23 15:36] LABS: Add Urine Culture? No; Mucus Urine TRACE /hpf
[2020-05-23] MEDS: iohexol 300 mg/mL 100 mL Btl IV (16:10)
[2020-05-23] MEDS: ketorolac 30 mg/mL INJ 60 MG IM (16:38)
[2020-05-23 16:58] VITALS: BP 136/86; PULSE 70; RESP 15; O2SAT 97
== END 2020-05-23 16:58 | disposition home or self-care (01) ==
PROVIDERS: Emergency Provider Family Medicine; PCP Family Medicine
DX: N83.202 Unspecified ovarian cyst, left side (principal); E11.9 Type 2 diabetes mellitus without complications; Z79.82 Long term (current) use of aspirin; I10 Essential (primary) hypertension; E78.5 Hyperlipidemia, unspecified; F17.210 Nicotine dependence, cigarettes, uncomplicated
CPT/HCPCS: 12345; 36415; 74177; 80053; 81001; 85025; 96372; 96375; 99283; J1885; Q9967

== ENCOUNTER 2020-05-26 17:07 | Emergency (ER) | payer MEDICARE, MEDICAID, SELFPAY ==
[2020-05-26 18:06] VITALS: BP 126/87; PULSE 85; RESP 18; TEMP 36.6; O2SAT 97; BMI 64.4
[2020-05-26 21:04] LABS: Basophils # 0.1 10^3/uL (0.0-0.1); Basophils % 0.3 %; Eosinophils # 0.2 10^3/uL (0.0-0.8); Eosinophils % 1.2 %; Hematocrit 46.2 % (37.0-47.0); Hemoglobin 14.8 g/dL (11.5-15.3); Lymphocytes # 1.8 10^3/uL (0.8-4.8); Lymphocytes % 11.7 %; Mean Corpuscular Hemoglobin 28.4 pg (28.0-34.0); Mean Corpuscular Volume 88.5 fL (81-99); Mean Platelet Volume 11.3 fL (7.4-10.4); Monocytes # 0.9 10^3/uL (0.2-0.9); Monocytes % 5.8 %; Neutrophils # 12.42 10^3/uL (1.8-7.7); Neutrophils % 79.8 %; Nucleated Red Blood Cells % 0 %; Platelet Count 326 10^3/cmm (130-400); Red Blood Count 5.22 10^6/uL (4.1-5.3); Red Cell Distribution Width 12.9 % (12.1-15.1); White Blood Count 15.6 10^3/uL (4.0-10.0)
[2020-05-26 21:18] LABS: HCG, Serum Qual Negative (Negative)
[2020-05-26 21:23] LABS: Alanine Aminotransferase 57 U/L (0-33); Albumin Level 4.2 g/dL (3.5-5.2); Alkaline Phosphatase 152 IU/L (35-105); Anion Gap 17.8 (5-19); Aspartate Amino Transferase 24 U/L (0-32); Blood Urea Nitrogen 14 mg/dL (6-20); Calcium 9.6 mg/dL (8.5-10.5); Carbon Dioxide 24 mmol/L (22-29); Chloride 96 mmol/L (98-107); Creatinine Clr Calc Pharmacy 123.4965; Globulin 4.2 g/dL (1.3-4.6); Glomerular Filtration Rate 72.6 mL/min (90-130); Glucose 261 mg/dL (65-115); Osmolality Calculated 286 mOsm/kg (285-295); Potassium 4.8 mmol/L (3.5-5.1); Sodium 133 mmol/L (136-145); Total Bilirubin 0.6 mg/dL (0.15-1.2); Total Protein 8.4 g/dL (6.6-8.7)
--- NOTE | 2020-05-26 21:25 | W.ED.ABDPA2 ---
HPI - Abdominal Pain General: Chief Complaint: Abdominal Pain Stated Complaint: OVARY PAIN Time Seen by Provider: 05/26/20 21:24 Source: patient Mode of arrival: ambulatory Limitations: no limitations History of Present Illness: HPI narrative: Patient is a 34-year-old female who presents to ED today with complaints of left-sided pelvic pain. Patient tells me she has a known very large left ovarian cyst/mass. Patient states the mass was biopsied approximately a month ago by Dr. Anderson who is a gynecological oncologist in [employer]. She tells me she recently was contacted stating the mass was malignant. They are currently scheduling her for a complete hysterectomy. Patient tells me this evening her pain became severe so came to the emergency department for evaluation. She states her pain currently is the same ovarian pain she has had previously. Of note- CT scan that was performed on 04/25 does show a left cystic mass measuring 12 cm x 10 cm x 10 cm Radiation: none Migration to: no migration Exacerbating factors: nothing Relieving factors: nothing Associated Symptoms: Denies change in bowel habits, chills, diarrhea, dysuria, fever(s), nausea and vomiting Related Data: Date of Last Menstrual Period: 03/12/20 Review of Systems Const: Denies: fever(s), chills or body aches Card: Denies: chest pain Resp: Denies: dyspnea GI: Reports: abdominal pain; Denies: nausea, vomiting, diarrhea or change in bowel habits : Denies: flank pain, difficulty voiding, dysuria, urinary frequency, urinary urgency or urinary hesitancy Musc: Denies: neck pain or back pain Skin/Breast: Denies: rash Neuro: Denies: headache(s), numbness in extremities, weakness in extremities or sensory changes PFS ED PFSH: Medical History (Updated 05/26/20 @ 23:06 by KAMRON Boo) Amenorrhea Asthma Benign essential HTN Bilateral chronic knee pain Bilateral leg edema Dyslipidemia GERD (gastroesophageal reflux disease) 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 Morbid obesity with BMI of 60.0-69.9, adult Muscle spasms of both lower extremities Pain management contract signed Prolonged depression Spinal stenosis, thoracic region Type 2 diabetes mellitus, with long-term current use of insulin Surgical History History of cholecystectomy Family History Father CAD (coronary artery disease) Diabetes Hypertension Family/Other Cancer Mother Diabetes Hypertension Social History Smoking and tobacco status: current every day smoker cigarettes Packs smoked per day: 0.5 Alcohol intake: never Caregiver/support person: Yes Household members: spouse and family Marital status: Current occupational status: disabled Current occupation: disabled History of recent travel: No Female Reproductive History: Date of last menstrual period: 03/12/20 Physical Exam Const: COMMON NORMALS: no acute distress, patient oriented x3, no limitations and alert NUTRITIONAL APPEARANCE: obese morbidly obese ORIENTATION/CONSCIOUSNESS: Yes oriented to person, Yes oriented to place and Yes oriented to time GI: COMMON NORMALS: Normal to inspection, nondistended, normoactive bowel sounds present, Soft to palpation, No hepatosplenomegaly present and no masses PALPATION: Yes Soft to palpation, Yes Tenderness to palpation present (GI) (L pelvis; exam limited secondary to body habitus ) and Yes No hepatosplenomegaly present : COMMON NORMALS: Yes no CVA tenderness BLADDER/KIDNEY EXAM: Yes no CVA tenderness Back/Pelvis: COMMON NORMALS: no CVA tenderness Neuro: HAWK COMA SCALE: document GCS findings [place] coma scale eye opening: Spontaneous [place] coma scale verbal response: Orientated [place] coma scale motor response: Obey commands [place] coma scale total score: 15 COMMON NORMALS: patient oriented x3 SENSORIUM/ORIENTATION: Yes alert, Yes oriented to person, Yes oriented to place and Yes oriented to time Skin: COMMON NORMALS: no rashes or lesions noted GENERAL SKIN EXAM: no rashes or lesions noted Course ED course: Due to size of the mass and increased pain, patient will need an ultrasound to rule out ovarian torsion. This is been ordered. Lab work has already returned and appears non-concerning at this time. Vital Signs: Vital signs: Vital Signs Temperature 97.9 F 05/26/20 18:06 Pulse Rate 85 05/26/20 18:06 Respiratory Rate 18 05/26/20 23:23 Blood Pressure 126/87 05/26/20 18:06 Pulse Oximetry 97 05/26/20 18:06 MDM - Abdominal Pain MDM Narrative: Medical decision making narrative: pt with confirmed blood flow to ovaries/no torsion; she will be discharged with instructions to follow up with her oncologist Lab Data: Labs: Lab Results 05/26/20 05/26/20 05/26/20 Range/Units 20:56 20:56 20:56 WBC 15.6 H (4.0-10.0) 10^3/ uL RBC 5.22 (4.1-5.3) 10^6/u L Hgb 14.8 (11.5-15.3) g/dL Hct 46.2 (37.0-47.0) % MCV 88.5 (81-99) fL MCH 28.4 (28.0-34.0) pg MCHC 32.0 (30.0-36.0) g/dL RDW 12.9 (12.1-15.1) % Plt Count 326 (130-400) 10^3/c mm MPV 11.3 H (7.4-10.4) fL Neut % (Auto) 79.8 % Lymph % (Auto) 11.7 % [place] % (Auto) 5.8 % Eos % (Auto) 1.2 % Baso % (Auto) 0.3 % Neut # (Auto) 12.42 H (1.8-7.7) 10^3/u L Lymph # (Auto) 1.8 (0.8-4.8) 10^3/u L [place] # (Auto) 0.9 (0.2-0.9) 10^3/u L Eos # (Auto) 0.2 (0.0-0.8) 10^3/u L Baso # (Auto) 0.1 (0.0-0.1) 10^3/u L Nucleated RBC % (a uto) 0 % Nucleated RBCs # 0.0 /100WBC Sodium 133 L (136-145) mmol/L Potassium 4.8 (3.5-5.1) mmol/L Chloride 96 L (98-107) mmol/L Carbon Dioxide 24 (22-29) mmol/L Anion Gap 17.8 (5-19) BUN 14 (6-20) mg/dL Creatinine 0.9 (0.5-0.9) mg/dL GFR Calculation 72.6 L (90-130) mL/min Glucose 261 H (65-115) mg/dL Calculated Osmolal ity 286 (285-295) mOsm/k g Calcium 9.6 (8.5-10.5) mg/dL Total Bilirubin 0.6 (0.15-1.2) mg/dL AST 24 (0-32) U/L ALT 57 H (0-33) U/L Alkaline Phosphata se 152 H (35-105) IU/L Total Protein 8.4 (6.6-8.7) g/dL Albumin 4.2 (3.5-5.2) g/dL Globulin 4.2 (1.3-4.6) g/dL HCG, Qual Negative (Negative) Imaging Data ^: US TV: My impression: Per Denae US tech-although she could not visualize ovary or mass well, she did confirm arterial and venous flow to bilateral ovaries Discharge Plan Discharge Patient Disposition: Home Clinical Impression: Cyst of left ovary Condition: Stable Prescriptions: New hydrocodone-acetaminophen 5-325 mg tablet 1 tab PO Q6H PRN (Reason: pain) Qty: 14 RF: 0 Zofran 4 mg tablet 4 mg PO Q6H PRN (Reason: nausea and vomiting) Qty: 14 RF: 0 No Action Levemir FlexTouch U-100 Insuln 100 unit/mL (3 mL) insulin pen 30 unit SUBCUT DAILY Qty: 15 RF: 0 (DME) Wheeled walker with seat See Rx Instructions .Route .MEDSUPPLY Qty: 1 RF: 0 tramadol 50 mg tablet 50 mg PO QID PRN (Reason: chronic pain) Qty: 120 RF: 0 tizanidine 4 mg tablet 4 mg PO BID PRN (Reason: muscle spasticity) Qty: 60 RF: 0 gabapentin 300 mg capsule 300 mg PO TID MDD 3 Qty: 90 RF: 0 dulaglutide 1.5 mg/0.5 mL pen injector 1.5 mg SUBCUT Q7D Qty: 2 RF: 2 metformin 500 mg tablet 500 mg PO BID Qty: 180 RF: 1 atenolol 25 mg tablet 25 mg PO BID Qty: 180 RF: 0 (DME) 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 meter [Accu-Chek Kori Plus Meter] Misc See Rx Instructions .ROUTE .MEDSUPPLY Qty: 1 RF: 0 (DME) Accu-Chek Kori Plus test strp Strip See Rx Instructions .ROUTE .MEDSUPPLY Qty: 100 RF: 1 (DME) lancets [Accu-Chek Fastclix Lancet Drum] Misc See Rx Instructions .ROUTE .MEDSUPPLY Qty: 100 RF: 1 lisinopril-hydrochlorothiazide 20-25 mg tablet 1 tab PO DAILY Qty: 30 RF: 1 citalopram 20 mg tablet 20 mg PO DAILY Qty: 30 RF: 1 albuterol sulfate [Ventolin HFA] 90 mcg/actuation HFA aerosol inhaler 2 puff INHALATION Q6H PRN (Reason: Shortness Of Breath Or Wheezing) Qty: 8.5 RF: 1 omeprazole 40 mg capsule,delayed release(DR/EC) 40 mg PO DAILY Qty: 90 RF: 0 spironolactone 25 mg tablet 25 mg PO DAILY Qty: 90 RF: 0 montelukast [Singulair] 10 mg tablet 10 mg PO DAILY Qty: 90 RF: 1 Zofran 4 mg tablet 4 mg PO Q6H PRN (Reason: nausea and vomiting) Qty: 20 RF: 0 diclofenac sodium 75 mg tablet,delayed release (DR/EC) 75 mg PO Q12H PRN (Reason: pain) Qty: 20 RF: 0 Discharge Orders: Discharge Order (Routine); Ordered 05/26/20 Ordered By: Sissy Luke Referrals: Celina Ruiz DO [Primary Care Provider] - Activity Restrictions/Additional Instructions: As discussed please continue to follow-up with your oncologist in [employer]. You may return to the emergency department for severe or worsening pain, fevers, repetitive episodes of vomiting, or any other concerns you may have. Discharge Date/Time: 05/26/20 23:23 Coding Level of Care Code ED Metal Storage Worker for Chg Fwd Exam Detailed
--- NOTE | 2020-05-26 21:28 | USR_ITS ---
PROCEDURE INFORMATION: Exam: US Pelvis Complete, Transabdominal and US Pelvis, Transvaginal Exam date and time: 05/26/2020 9:29 PM Age: 34 years old Clinical indication: Pelvic pain; Additional info: Large L ovarian mass; Increased pain; R/O torsion TECHNIQUE: Imaging protocol: Real-time transabdominal and transvaginal pelvic ultrasound (complete) with image documentation. Transvaginal imaging was used for better evaluation of the endometrium and adnexa. COMPARISON: US pelvic complete* [id number] 11/12/2019 5:46 PM FINDINGS: The uterus measures 9.8 cm in length. There is no visible focal myometrial mass. There is no intrauterine fluid. Endometrial thickness is 7.8 mm. There is no visible free pelvic fluid. The right ovary is not definitely visualized, possibly obscured by bowel gas. As before, there is a large left adnexal cystic lesion, presumably arising from the left ovary. This measures up to 10-11 mm in size, similar to to the prior exam. Etiology not certain, but this is larger than expected for a physiologic cyst. Ovarian neoplasm such as cystadenoma or cystadenocarcinoma should be excluded. Appropriate gynecologic workup/follow-up recommended. Blood flow detected within the wall of the presumed left ovarian cyst. Presence of ovarian blood flow does not entirely exclude torsion, as ovarian torsion is often intermittent, and the ovaries have dual blood supply. Ultrasound is not always definitive in excluding ovarian torsion, so clinical judgment will still be needed. Please correlate clinically. The urinary bladder was not completely evaluated/imaged at this time. Endovaginal scanning provided better visualization/evaluation of the endometrium and ovaries/adnexal regions, as discussed above. US/US transvaginal [id number] IMPRESSION: 1. Large left adnexal/ovarian cystic lesion, similar to prior exam. See above details. 2. Blood flow detected within the wall of the presumed left ovarian cyst, see above discussion. 3. No visible free pelvic fluid. 4. Other details discussed above.
[2020-05-26] MEDS: morphine 4 mg/mL SDV 1 mL IM (22:16)
[2020-05-26] MEDS: ondansetron 2 mg/ML SDV 2 mL 4 MG IM (22:17)
[2020-05-26 22:27] VITALS: RESP 18
[2020-05-26 23:23] VITALS: RESP 18
== END 2020-05-26 23:23 | disposition home or self-care (01) ==
PROVIDERS: Emergency Provider Physician Assistant; PCP Family Medicine
DX: N83.202 Unspecified ovarian cyst, left side (principal); Z79.4 Long term (current) use of insulin; I10 Essential (primary) hypertension; E11.9 Type 2 diabetes mellitus without complications; F17.210 Nicotine dependence, cigarettes, uncomplicated
CPT/HCPCS: 12345; 76830; 80053; 84703; 85025; 96372; 99281; 99284; J2270; J2405

== ENCOUNTER 2020-05-27 02:39 | Emergency (ER) | payer MEDICARE, MEDICAID, SELFPAY ==
[2020-05-27 02:43] VITALS: BP 125/85; PULSE 80; RESP 18; TEMP 36.2; O2SAT 94; BMI 64.4
--- NOTE | 2020-05-27 02:51 | ED_ITS ---
HPI - Abdominal Pain General: Chief Complaint: Abdominal Pain Stated Complaint: ovarian pain Time Seen by Provider: 05/27/20 02:44 Source: patient Mode of arrival: ambulatory Limitations: no limitations History of Present Illness: HPI narrative: 84-year-old female who was seen here [facility] for having left lower quadrant abdominal pain for months due to a cyst. She is to follow-up June 12 in [place]. Patient states that her pain is returned and is now a 7 out of 10. Denies any vomiting or diarrhea. Denies any fevers. MD elicited complaint: abdominal pain Onset (ago): month(s) Location: LLQ Associated Symptoms: Denies chills, dysuria and fever(s) Related Data: Date of Last Menstrual Period: 03/12/20 Review of Systems Const: Denies: fever(s), chills, body aches or change in appetite Eyes: Denies: blurry vision or eye discomfort ENMT: Denies: throat pain or dental pain Card: Denies: chest pain Resp: Denies: dyspnea GI: Reports: abdominal pain : Denies: dysuria Musc: Denies: neck pain or back pain Skin/Breast: Denies: rash Neuro: Denies: headache(s) Psych: Denies: depression Sunday/Lymph: Denies: easy bruising All/Imm: Denies: urticaria PFSH ED PFSH: Medical History Amenorrhea Asthma Benign essential HTN Bilateral chronic knee pain Bilateral leg edema Dyslipidemia GERD (gastroesophageal reflux disease) 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 Morbid obesity with BMI of 60.0-69.9, adult Muscle spasms of both lower extremities Pain management contract signed Prolonged depression Spinal stenosis, thoracic region Type 2 diabetes mellitus, with long-term current use of insulin Surgical History History of cholecystectomy Family History Father CAD (coronary artery disease) Diabetes Hypertension Family/Other Cancer Mother Diabetes Hypertension Social History Smoking and tobacco status: current every day smoker cigarettes Packs smoked per day: 0.5 Alcohol intake: never Caregiver/support person: Yes Household members: spouse and family Marital status: Current occupational status: disabled Current occupation: disabled History of recent travel: No Female Reproductive History: Date of last menstrual period: 03/12/20 Physical Exam Const: COMMON NORMALS: no acute distress, patient oriented x3 and healthy appearing HENMT: COMMON NORMALS: normocephalic and atraumatic HEAD & SCALP: normocephalic and atraumatic Eye: COMMON NORMALS: Equal, round and reactive pupils present and EOMs intact bilaterally PUPIL: Yes Equal, round and reactive pupils present Neck/C-Spine: COMMON NORMALS: full ROM and supple Chest: COMMONS NORMALS: normal inspection of the chest and normal palpation of entire chest wall Resp: COMMON NORMALS: normal respiratory effort, No retractions, No use of accessory muscles and clear to auscultation bilaterally AUSCULTATION: clear to auscultation bilaterally Cardio: COMMON NORMALS: regular rate, regular rhythm and No murmurs present (Cardio) RATE: regular rate RHYTHM: regular rhythm GI: COMMON NORMALS: Normal to inspection, nondistended, normoactive bowel sounds present, Soft to palpation and no masses PALPATION: Yes Soft to palpation and Yes Tenderness to palpation present (GI) Details: LLQ Extremity: COMMON NORMALS: normal to inspection and full ROM Neuro: COMMON NORMALS: patient oriented x3, moves all extremities and no focal motor deficits Psych: COMMON NORMALS: mental status grossly normal, Normal thought process present and cooperative THOUGHT PROCESS: Normal thought process present Skin: COMMON NORMALS: no rashes or lesions noted and no wounds GENERAL SKIN EXAM: no rashes or lesions noted Course Vital Signs: Vital signs: Vital Signs Temperature 97.2 F L 05/27/20 02:43 Pulse Rate 80 05/27/20 02:43 Respiratory Rate 18 05/27/20 02:43 Blood Pressure 125/85 05/27/20 02:43 Pulse Oximetry 94 05/27/20 02:43 MDM - Abdominal Pain MDM Narrative: Medical decision making narrative: Patient presents with abdominal pain from an ovarian cyst. Patient ultrasound earlier showed no signs of torsion. Patient is well-appearing here was given pain meds and is stable for discharge. She is to follow-up with PCP in 2 to 4 days return if worsening. She understands and agrees to plan. Discharge Plan Discharge Patient Disposition: Home Clinical Impression: Abdominal pain Qualifiers: Abdominal location: left lower quadrant Qualified Code(s): R10.32 - Left lower quadrant pain Condition: Stable Prescriptions: No Action Levemir FlexTouch U-100 Insuln 100 unit/mL (3 mL) insulin pen 30 unit SUBCUT DAILY Qty: 15 RF: 0 (DME) Wheeled walker with seat See Rx Instructions .Route .MEDSUPPLY Qty: 1 RF: 0 tramadol 50 mg tablet 50 mg PO QID PRN (Reason: chronic pain) Qty: 120 RF: 0 tizanidine 4 mg tablet 4 mg PO BID PRN (Reason: muscle spasticity) Qty: 60 RF: 0 gabapentin 300 mg capsule 300 mg PO TID MDD 3 Qty: 90 RF: 0 dulaglutide 1.5 mg/0.5 mL pen injector 1.5 mg SUBCUT Q7D Qty: 2 RF: 2 metformin 500 mg tablet 500 mg PO BID Qty: 180 RF: 1 atenolol 25 mg tablet 25 mg PO BID Qty: 180 RF: 0 (DME) 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 meter [Accu-Chek Kori Plus Meter] Misc See Rx Instructions .ROUTE .MEDSUPPLY Qty: 1 RF: 0 (DME) Accu-Chek Kori Plus test strp Strip See Rx Instructions .ROUTE .MEDSUPPLY Qty: 100 RF: 1 (DME) lancets [Accu-Chek Fastclix Lancet Drum] Misc See Rx Instructions .ROUTE .MEDSUPPLY Qty: 100 RF: 1 lisinopril-hydrochlorothiazide 20-25 mg tablet 1 tab PO DAILY Qty: 30 RF: 1 citalopram 20 mg tablet 20 mg PO DAILY Qty: 30 RF: 1 albuterol sulfate [Ventolin HFA] 90 mcg/actuation HFA aerosol inhaler 2 puff INHALATION Q6H PRN (Reason: Shortness Of Breath Or Wheezing) Qty: 8.5 RF: 1 omeprazole 40 mg capsule,delayed release(DR/EC) 40 mg PO DAILY Qty: 90 RF: 0 spironolactone 25 mg tablet 25 mg PO DAILY Qty: 90 RF: 0 montelukast [Singulair] 10 mg tablet 10 mg PO DAILY Qty: 90 RF: 1 hydrocodone-acetaminophen 5-325 mg tablet 1 tab PO Q6H PRN (Reason: pain) Qty: 14 RF: 0 Zofran 4 mg tablet 4 mg PO Q6H PRN (Reason: nausea and vomiting) Qty: 14 RF: 0 Zofran 4 mg tablet 4 mg PO Q6H PRN (Reason: nausea and vomiting) Qty: 20 RF: 0 diclofenac sodium 75 mg tablet,delayed release (DR/EC) 75 mg PO Q12H PRN (Reason: pain) Qty: 20 RF: 0 Discharge Orders: Discharge Order (Routine); Ordered 05/27/20 Ordered By: Kat Yang Referrals: Celina Ruiz DO [Primary Care Provider] - Discharge Diet: Advance as tolerated Discharge Activity: Resume usual activity Patient Instructions: Abdominal Pain (ED) Coding Level of Care Code ED Company Controller for Leonela Escobedo
[2020-05-27] MEDS: ketorolac 60 mg/2 mL INJ IM (02:56)
[2020-05-27] MEDS: metoclopramide 5 mg/mL SDV 2 mL 10 MG IM (02:58)
[2020-05-27] MEDS: diphenhydrAMINE 50 mg/mL SDV 1mL IM (03:03)
[2020-05-27] MEDS: HYDROcodone-acetaminophen 5-325 mg Tablet 1 TAB PO (03:10)
[2020-05-27 03:46] VITALS: BP 132/70; PULSE 82; RESP 20; TEMP 36.7; O2SAT 94
[2020-05-27] MEDS: LORazepam 2 mg/mL INJ 1 mL 1 MG IM (03:56)
== END 2020-05-27 04:06 | disposition home or self-care (01) ==
PROVIDERS: Emergency Provider Emergency Medicine; PCP Family Medicine
DX: R10.32 Left lower quadrant pain (principal); Z79.4 Long term (current) use of insulin; I10 Essential (primary) hypertension; E78.5 Hyperlipidemia, unspecified; E11.9 Type 2 diabetes mellitus without complications; F17.210 Nicotine dependence, cigarettes, uncomplicated
CPT/HCPCS: 12345; 96372; 99281; 99282; J1200; J1885; J2060; J2765

== ENCOUNTER 2020-05-30 18:43 | Emergency (ER) | payer MEDICARE, MEDICAID, SELFPAY ==
[2020-05-30 18:58] VITALS: BP 126/79; PULSE 94; RESP 20; TEMP 36.7; O2SAT 96; BMI 64.4
[2020-05-30 19:34] LABS: Basophils # 0.1 10^3/uL (0.0-0.1); Basophils % 0.3 %; Eosinophils # 0.2 10^3/uL (0.0-0.8); Eosinophils % 0.8 %; Hematocrit 42.5 % (37.0-47.0); Hemoglobin 13.4 g/dL (11.5-15.3); Lymphocytes # 1.6 10^3/uL (0.8-4.8); Lymphocytes % 8.8 %; Mean Corpuscular HGB Conc 31.5 g/dL (30.0-36.0); Mean Corpuscular Hemoglobin 28.5 pg (28.0-34.0); Mean Corpuscular Volume 90.4 fL (81-99); Mean Platelet Volume 11.8 fL (7.4-10.4); Monocytes % 5.2 %; Neutrophils # 15.58 10^3/uL (1.8-7.7); Nucleated Red Blood Cells % 0 %; Platelet Count 257 10^3/cmm (130-400); White Blood Count 18.5 10^3/uL (4.0-10.0)
[2020-05-30 19:48] LABS: Alanine Aminotransferase 63 U/L (0-33); Albumin Level 3.8 g/dL (3.5-5.2); Alkaline Phosphatase 141 IU/L (35-105); Anion Gap 17.6 (5-19); Aspartate Amino Transferase 18 U/L (0-32); Blood Urea Nitrogen 21 mg/dL (6-20); Calcium 8.9 mg/dL (8.5-10.5); Carbon Dioxide 22 mmol/L (22-29); Chloride 97 mmol/L (98-107); Creatinine Clr Calc Pharmacy 123.4965; Globulin 4.1 g/dL (1.3-4.6); Glomerular Filtration Rate 72.6 mL/min (90-130); Glucose 314 mg/dL (65-115); Lipase 19 U/L (13-60); Osmolality Calculated 289 mOsm/kg (285-295); Potassium 4.6 mmol/L (3.5-5.1); Sodium 132 mmol/L (136-145); Total Bilirubin 0.4 mg/dL (0.15-1.2); Total Protein 7.9 g/dL (6.6-8.7)
[2020-05-30 19:50] LABS: HCG, Serum Qual Negative (Negative)
--- NOTE | 2020-05-30 20:20 | XRR_ITS ---
PROCEDURE INFORMATION: Exam: XR Abdomen, 1 View Exam date and time: 05/30/2020 8:58 PM Age: 34 years old Clinical indication: Constipation; Abdominal pain; Generalized; Prior surgery; Surgery type: Gb; Additional info: Abd pain, constipation TECHNIQUE: Imaging protocol: XR of the abdomen. Views: Frontal supine view of the abdomen. 1 View. COMPARISON: CT abdomen pelvis w con* [id number] 05/23/2020 3:57 PM FINDINGS: Gastrointestinal tract: No excessive stool volume identified. No bowel dilation. Organs: The gallbladder is likely surgically absent, with metallic clips overlying the gallbladder fossa. Bones/joints: No acute abnormality identified. XR/XR KUB [id number] IMPRESSION: 1. No acute abdominal or pelvic abnormality identified. 2. Prior cholecystectomy.
--- NOTE | 2020-05-30 20:27 | ED_ITS ---
HPI - Abdominal Pain General: Chief Complaint: Abdominal Pain Stated Complaint: abd pain Time Seen by Provider: 05/30/20 20:02 History of Present Illness: HPI narrative: This patient is a 34-year-old female who presents with abdominal pain. She has had multiple visits to the ER for abdominal pain but she says this time it is different. The last few visits have been for left lower quadrant pain that possibly related to a left ovarian cyst. Today her pain is midline and more diffuse and upper. She has not had a bowel movement in 4 days. She said normally she has diarrhea or at least loose stool because of her metformin. Is unusual for her to go 4 days without a stool. She is been on hydrocodone for the ovarian cyst pain. She has had some nausea and occasional vomiting. She denies fevers. She said she has not urinated very much today which she thinks is because she has not been able to eat and drink. MD elicited complaint: abdominal pain Pertinent past history: constipation Onset (ago): day(s) (1) Pain Consistency: constant and colicky Location: Diffuse Severity: severe Quality: cramping Radiation: none Migration to: no migration Exacerbating factors: movement Relieving factors: nothing Context: other (Recently on hydrocodone) Associated Symptoms: Reports bloating; Denies chills and fever(s) Related Data: Date of Last Menstrual Period: 09/08/11 Review of Systems General: Reports: 10 or more systems reviewed and unremarkable except in HPI and below Const: Denies: fever(s), chills, fatigue or malaise Eyes: Denies: change in vision ENMT: Denies: odynophagia Card: Denies: chest pain or swelling of feet/ankles Resp: Denies: dyspnea, productive cough or non-productive cough GI: Reports: bloating : Denies: flank pain or difficulty voiding Musc: Denies: neck pain or back pain Skin/Breast: Denies: rash Neuro: Denies: headache(s), numbness in extremities or weakness in extremities Sunday/Lymph: Denies: easy bruising or easy bleeding [facility] ED PFSH: Medical History (Updated 05/30/20 @ 22:21 by Krupa Acuna MD) Amenorrhea Asthma Benign essential HTN Bilateral chronic knee pain Bilateral leg edema Dyslipidemia GERD (gastroesophageal reflux disease) 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 Morbid obesity with BMI of 60.0-69.9, adult Muscle spasms of both lower extremities Pain management contract signed Prolonged depression Spinal stenosis, thoracic region Type 2 diabetes mellitus, with long-term current use of insulin Surgical History History of cholecystectomy Family History Father CAD (coronary artery disease) Diabetes Hypertension Family/Other Cancer Mother Diabetes Hypertension Social History Smoking and tobacco status: current every day smoker cigarettes Packs smoked per day: 0.5 Alcohol intake: never Caregiver/support person: Yes Household members: spouse and family Marital status: Current occupational status: disabled Current occupation: disabled History of recent travel: No Female Reproductive History: Date of last menstrual period: 09/08/11 Course Vital Signs: Vital signs: Vital Signs Temperature 98.1 F 05/30/20 18:58 Pulse Rate 92 05/30/20 21:06 Respiratory Rate 16 05/30/20 21:06 Blood Pressure 150/78 05/30/20 21:06 Pulse Oximetry 93 05/30/20 21:06 MDM - Abdominal Pain Lab Data: Labs: Lab Results 05/30/20 05/30/20 05/30/20 Range/Units 19:24 19:24 19:24 WBC 18.5 H (4.0-10.0) 10^3/ uL RBC 4.70 (4.1-5.3) 10^6/u L Hgb 13.4 (11.5-15.3) g/dL Hct 42.5 (37.0-47.0) % MCV 90.4 (81-99) fL MCH 28.5 (28.0-34.0) pg MCHC 31.5 (30.0-36.0) g/dL RDW 13.0 (12.1-15.1) % Plt Count 257 (130-400) 10^3/c mm MPV 11.8 H (7.4-10.4) fL Neut % (Auto) 84.0 % Lymph % (Auto) 8.8 % [place] % (Auto) 5.2 % Eos % (Auto) 0.8 % Baso % (Auto) 0.3 % Neut # (Auto) 15.58 H (1.8-7.7) 10^3/u L Lymph # (Auto) 1.6 (0.8-4.8) 10^3/u L [place] # (Auto) 1.0 H (0.2-0.9) 10^3/u L Eos # (Auto) 0.2 (0.0-0.8) 10^3/u L Baso # (Auto) 0.1 (0.0-0.1) 10^3/u L Nucleated RBC % (a uto) 0 % Nucleated RBCs # 0.0 /100WBC Sodium 132 L (136-145) mmol/L Potassium 4.6 (3.5-5.1) mmol/L Chloride 97 L (98-107) mmol/L Carbon Dioxide 22 (22-29) mmol/L Anion Gap 17.6 (5-19) BUN 21 H (6-20) mg/dL Creatinine 0.9 (0.5-0.9) mg/dL GFR Calculation 72.6 L (90-130) mL/min Glucose 314 H (65-115) mg/dL Calculated Osmolal ity 289 (285-295) mOsm/k g Calcium 8.9 (8.5-10.5) mg/dL Total Bilirubin 0.4 (0.15-1.2) mg/dL AST 18 (0-32) U/L ALT 63 H (0-33) U/L Alkaline Phosphata se 141 H (35-105) IU/L Total Protein 7.9 (6.6-8.7) g/dL Albumin 3.8 (3.5-5.2) g/dL Globulin 4.1 (1.3-4.6) g/dL Lipase 19 (13-60) U/L HCG, Qual Negative (Negative) Urine Color (Yellow) Urine Appearance (CLEAR) Urine pH (5-7) Ur Specific Gravit y (1.005-1.030) Urine Protein (Negative) Urine Glucose (UA) (Normal) Urine Ketones (Negative) Urine Blood (Negative) Urine Nitrate (Negative) Urine Bilirubin (Negative) Urine Urobilinogen (Negative) mg/dL Ur Leukocyte Maame ase (Negative) Urine RBC (0-2) /hpf Urine WBC (0-5) /hpf Ur Squamous Epith Cells (0-5) /hpf Amorphous Sediment Urine Bacteria (NONE) /hpf 05/30/20 Range/Units 20:39 WBC (4.0-10.0) 10^3/ uL RBC (4.1-5.3) 10^6/u L Hgb (11.5-15.3) g/dL Hct (37.0-47.0) % MCV (81-99) fL MCH (28.0-34.0) pg MCHC (30.0-36.0) g/dL RDW (12.1-15.1) % Plt Count (130-400) 10^3/c mm MPV (7.4-10.4) fL Neut % (Auto) % Lymph % (Auto) % [place] % (Auto) % Eos % (Auto) % Baso % (Auto) % Neut # (Auto) (1.8-7.7) 10^3/u L Lymph # (Auto) (0.8-4.8) 10^3/u L [place] # (Auto) (0.2-0.9) 10^3/u L Eos # (Auto) (0.0-0.8) 10^3/u L Baso # (Auto) (0.0-0.1) 10^3/u L Nucleated RBC % (a uto) % Nucleated RBCs # /100WBC Sodium (136-145) mmol/L Potassium (3.5-5.1) mmol/L Chloride (98-107) mmol/L Carbon Dioxide (22-29) mmol/L Anion Gap (5-19) BUN (6-20) mg/dL Creatinine (0.5-0.9) mg/dL GFR Calculation (90-130) mL/min Glucose (65-115) mg/dL Calculated Osmolal ity (285-295) mOsm/k g Calcium (8.5-10.5) mg/dL Total Bilirubin (0.15-1.2) mg/dL AST (0-32) U/L ALT (0-33) U/L Alkaline Phosphata se (35-105) IU/L Total Protein (6.6-8.7) g/dL Albumin (3.5-5.2) g/dL Globulin (1.3-4.6) g/dL Lipase (13-60) U/L HCG, Qual (Negative) Urine Color Yellow (Yellow) Urine Appearance Sl hazy (CLEAR) Urine pH 5 (5-7) Ur Specific Gravit y 1.020 (1.005-1.030) Urine Protein Neg (Negative) Urine Glucose (UA) 4+ H (Normal) Urine Ketones 1+ H (Negative) Urine Blood Neg (Negative) Urine Nitrate Negative (Negative) Urine Bilirubin Neg (Negative) Urine Urobilinogen Norm (Negative) mg/dL Ur Leukocyte Maame ase Negative (Negative) Urine RBC 0-4 H (0-2) /hpf Urine WBC 0-4 H (0-5) /hpf Ur Squamous Epith Cells 5-10 H (0-5) /hpf Amorphous Sediment Not Reportable Urine Bacteria 1+ H (NONE) /hpf Discharge Plan Discharge Patient Disposition: Home Clinical Impression: Constipation Condition: Stable Prescriptions: No Action Levemir FlexTouch U-100 Insuln 100 unit/mL (3 mL) insulin pen 30 unit SUBCUT DAILY Qty: 15 RF: 0 (DME) Wheeled walker with seat See Rx Instructions .Route .MEDSUPPLY Qty: 1 RF: 0 tramadol 50 mg tablet 50 mg PO QID PRN (Reason: chronic pain) Qty: 120 RF: 0 tizanidine 4 mg tablet 4 mg PO BID PRN (Reason: muscle spasticity) Qty: 60 RF: 0 gabapentin 300 mg capsule 300 mg PO TID MDD 3 Qty: 90 RF: 0 dulaglutide 1.5 mg/0.5 mL pen injector 1.5 mg SUBCUT Q7D Qty: 2 RF: 2 metformin 500 mg tablet 500 mg PO BID Qty: 180 RF: 1 atenolol 25 mg tablet 25 mg PO BID Qty: 180 RF: 0 (DME) 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 meter [Accu-Chek Kori Plus Meter] Misc See Rx Instructions .ROUTE .MEDSUPPLY Qty: 1 RF: 0 (DME) Accu-Chek Kori Plus test strp Strip See Rx Instructions .ROUTE .MEDSUPPLY Qty: 100 RF: 1 (DME) lancets [Accu-Chek Fastclix Lancet Drum] Misc See Rx Instructions .ROUTE .MEDSUPPLY Qty: 100 RF: 1 lisinopril-hydrochlorothiazide 20-25 mg tablet 1 tab PO DAILY Qty: 30 RF: 1 citalopram 20 mg tablet 20 mg PO DAILY Qty: 30 RF: 1 albuterol sulfate [Ventolin HFA] 90 mcg/actuation HFA aerosol inhaler 2 puff INHALATION Q6H PRN (Reason: Shortness Of Breath Or Wheezing) Qty: 8.5 RF: 1 omeprazole 40 mg capsule,delayed release(DR/EC) 40 mg PO DAILY Qty: 90 RF: 0 spironolactone 25 mg tablet 25 mg PO DAILY Qty: 90 RF: 0 montelukast [Singulair] 10 mg tablet 10 mg PO DAILY Qty: 90 RF: 1 hydrocodone-acetaminophen 5-325 mg tablet 1 tab PO Q6H PRN (Reason: pain) Qty: 14 RF: 0 ondansetron HCl [Zofran] 4 mg tablet 4 mg PO Q6H PRN (Reason: nausea and vomiting) Qty: 14 RF: 0 diclofenac sodium 75 mg tablet,delayed release (DR/EC) 75 mg PO Q12H PRN (Reason: pain) Qty: 20 RF: 0 Discharge Orders: Discharge Order (Routine); Ordered 05/30/20 Ordered By: Krupa Acuna Referrals: Celina Ruiz DO [Primary Care Provider] - Discharge Diet: Usual diet Discharge Activity: Resume usual activity Patient Instructions: Constipation (ED) Activity Restrictions/Additional Instructions: Go to the pharmacy and get some Dulcolax laxative and magnesium citrate. These are available [id number]. Drink half the bottle of magnesium citrate. If you have not had a bowel movement in 4 hours drink the other half. Expect some cramping and discomfort as this medicine works. Coding Level of Care Code ED Display Maker for Leonela Escobedo
[2020-05-30 21:06] VITALS: BP 150/78; PULSE 92; RESP 16; O2SAT 93
[2020-05-30] MEDS: ondansetron 2 mg/ML SDV 2 mL 4 MG IVP (21:06)
[2020-05-30] MEDS: sodium chloride 0.9% 1,000 ML 999 ML IV (21:06)
[2020-05-30 21:10] LABS: Add Urine Microscopic? YES; Bacteria Urine 1+ /hpf; Bilirubin Urine Neg (Negative); Blood Urine Neg (Negative); Glucose Urine UA 4+ (Normal); Ketones Urine 1+ (Negative); Leukocyte Esterase Urine Negative (Negative); Nitrate Urine Negative (Negative); Protein Urine Neg (Negative); RBC Urine 0-4 /hpf (0-2); Urine Appearance SL Hazy (CLEAR); Urine Color Yellow (Yellow); Urobilinogen Urine Norm (Negative); WBC Urine 0-4 /hpf (0-5); pH Urine 5 (5-7)
[2020-05-30 22:30] VITALS: BP 147/76; PULSE 84; RESP 20; O2SAT 95
[2020-05-30] MEDS: dicyclomine 10 mg Capsule 20 MG PO (22:38)
[2020-05-30] MEDS: ketorolac 30 mg/mL INJ 15 MG IVP (22:38)
== END 2020-05-30 22:47 | disposition home or self-care (01) ==
PROVIDERS: Emergency Medicine; Emergency Provider Emergency Medicine; PCP Family Medicine
DX: K59.00 Constipation, unspecified (principal); I10 Essential (primary) hypertension; E78.5 Hyperlipidemia, unspecified; E11.9 Type 2 diabetes mellitus without complications; Z79.4 Long term (current) use of insulin; F17.210 Nicotine dependence, cigarettes, uncomplicated
CPT/HCPCS: 12345; 36415; 74018; 80053; 81001; 83690; 84703; 85025; 96360; 96374; 96375; 99283; J1885; J2405; J7030

== ENCOUNTER → 2020-06-19 08:53 | Outpatient (BNVA) | payer MEDICARE, MEDICAID, SELFPAY | PROVIDERS: PCP Family Medicine; Visit Provider Family Medicine | DX: E11.9 Type 2 diabetes mellitus without complications (principal); R79.89 Other specified abnormal findings of blood chemistry; Z13.6 Encounter for screening for cardiovascular disorders; Z79.4 Long term (current) use of insulin | CPT/HCPCS: 80053; 83036 ==

== ENCOUNTER 2020-06-30 04:26 | Emergency (ER) | payer MEDICARE, MEDICAID, SELFPAY ==
--- NOTE | 2020-06-30 04:29 | ECG_ITS ---
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 Measurements Intervals Tripp Rate: 93 P: 49 FL: 189 QRS: 61 QRSD: 88 T: 40 QT: 365 QTc: 456 Interpretive Statements SINUS RHYTHM Compared to ECG 12/01/2019 03:18:20 No significant changes Electronically Signed On 06-30-2020 20:28:12 CDT by Velasquez Desai M.D. [id number]
--- NOTE | 2020-06-30 04:29 | XRR_ITS ---
PROCEDURE INFORMATION: Exam: XR Chest, 1 View Exam date and time: 06/30/2020 4:49 AM Age: 34 years old Clinical indication: Shortness of breath; Additional info: SOB, chest pain TECHNIQUE: Imaging protocol: XR of the chest Views: 1 view. COMPARISON: CR XR chest 1V portable [id number] 12/07/2019 6:50 AM FINDINGS: Lungs: Unremarkable. No consolidation. Pleural space: Unremarkable. No pleural effusion. No pneumothorax. Heart/Mediastinum: Unremarkable. No cardiomegaly. Bones/joints: Unremarkable. XR/XR chest 1V portable [id number] IMPRESSION: No acute findings.
[2020-06-30 04:33] VITALS: BP 160/83; PULSE 94; RESP 18; TEMP 36.8; O2SAT 95; BMI 66.8
--- NOTE | 2020-06-30 04:34 | W.ED.CHESTPA ---
HPI - Chest Pain General: Chief Complaint: Chest Pain Stated Complaint: cp Time Seen by Provider: 06/30/20 04:31 Source: patient Mode of arrival: ambulatory Limitations: no limitations History of Present Illness: HPI narrative: 34-year-old female states she started having chest pain roughly 3 to 4 hours ago in the center of her chest. She denies any shortness of breath. She denies any worsening improving factors. States pain is a sharp pain and is worse with palpation. Denies any vomiting or diarrhea. MD complaint: chest pain Onset (ago): hour(s) Prior episodes: No Onset: during rest Pain location: substernal Pain radiation: left arm Severity: moderate Associated symptoms: Deny abdominal pain, dyspnea, fever(s), nausea or vomiting Review of Systems Const: Denies: fever(s), chills, body aches or change in appetite Eyes: Denies: blurry vision or eye discomfort ENMT: Denies: throat pain or dental pain Card: Reports: chest pain Resp: Denies: dyspnea GI: Denies: abdominal pain, nausea, vomiting or diarrhea : Denies: dysuria Musc: Denies: neck pain or back pain Skin/Breast: Denies: rash Neuro: Denies: headache(s) Psych: Denies: depression Sunday/Lymph: Denies: easy bruising All/Imm: Denies: urticaria PFSH ED PFSH: Medical History Amenorrhea Asthma Benign essential HTN Bilateral chronic knee pain Bilateral leg edema Dyslipidemia GERD (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 Morbid obesity with BMI of 60.0-69.9, adult Muscle spasms of both lower extremities Pain management contract signed Prolonged depression Spinal stenosis, thoracic region Type 2 diabetes mellitus, with long-term current use of insulin Surgical History History of cholecystectomy Family History Father CAD (coronary artery disease) Diabetes Hypertension Family/Other Cancer Mother Diabetes Hypertension Social History Smoking and tobacco status: current every day smoker cigarettes Packs smoked per day: 0.5 Alcohol intake: never Caregiver/support person: Yes Household members: spouse and family Marital status: Current occupational status: disabled Current occupation: disabled History of recent travel: No Female Reproductive History: Date of last menstrual period: 09/08/11 Physical Exam Const: COMMON NORMALS: no acute distress, patient oriented x3 and healthy appearing HENMT: COMMON NORMALS: normocephalic and atraumatic HEAD & SCALP: normocephalic and atraumatic Eye: COMMON NORMALS: Equal, round and reactive pupils present and EOMs intact bilaterally PUPIL: Yes Equal, round and reactive pupils present Neck/C-Spine: COMMON NORMALS: full ROM and supple Chest: COMMONS NORMALS: normal inspection of the chest and normal palpation of entire chest wall Resp: COMMON NORMALS: normal respiratory effort, No retractions, No use of accessory muscles and clear to auscultation bilaterally AUSCULTATION: clear to auscultation bilaterally Cardio: COMMON NORMALS: regular rate, regular rhythm and No murmurs present (Cardio) RATE: regular rate RHYTHM: regular rhythm GI: COMMON NORMALS: Normal to inspection, nondistended, normoactive bowel sounds present, Soft to palpation, non-tender and no masses PALPATION: Yes Soft to palpation Extremity: COMMON NORMALS: normal to inspection and full ROM Neuro: COMMON NORMALS: patient oriented x3, moves all extremities and no focal motor deficits Psych: COMMON NORMALS: mental status grossly normal, Normal thought process present and cooperative THOUGHT PROCESS: Normal thought process present Skin: COMMON NORMALS: no rashes or lesions noted and no wounds GENERAL SKIN EXAM: no rashes or lesions noted Course Vital Signs: Vital signs: Vital Signs Temperature 98.3 F 06/30/20 04:33 Pulse Rate 93 06/30/20 05:19 Respiratory Rate 18 06/30/20 05:19 Blood Pressure 152/84 06/30/20 05:19 Pulse Oximetry 100 06/30/20 05:19 MDM - Chest Pain MDM Narrative: Medical decision making narrative: Patient presents here with chest pain that is atypical in nature. Patient pain is likely muscular as she is point tender. She has no signs of pulmonary embolism. EKG and troponins are negative. Patient is stable for discharge and is to follow-up with PCP and return if worsening. Patient understands agrees to plan. Lab Data: Labs: Lab Results 06/30/20 06/30/20 06/30/20 Range/Units 04:46 04:46 04:46 WBC 16.1 H (4.0-10.0) 10^3/ uL RBC 4.87 (4.1-5.3) 10^6/u L Hgb 13.6 (11.5-15.3) g/dL Hct 43.2 (37.0-47.0) % MCV 88.7 (81-99) fL MCH 27.9 L (28.0-34.0) pg MCHC 31.5 (30.0-36.0) g/dL RDW 12.7 (12.1-15.1) % Plt Count 361 (130-400) 10^3/c mm MPV 11.4 H (7.4-10.4) fL Neut % (Auto) 74.2 % Lymph % (Auto) 15.5 % [place] % (Auto) 7.3 % Eos % (Auto) 1.3 % Baso % (Auto) 0.4 % Neut # (Auto) 11.91 H (1.8-7.7) 10^3/u L Lymph # (Auto) 2.5 (0.8-4.8) 10^3/u L [place] # (Auto) 1.2 H (0.2-0.9) 10^3/u L Eos # (Auto) 0.2 (0.0-0.8) 10^3/u L Baso # (Auto) 0.1 (0.0-0.1) 10^3/u L Nucleated RBC % (a uto) 0 % Nucleated RBCs # 0.0 /100WBC Sodium 133 L (136-145) mmol/L Potassium 4.2 (3.5-5.1) mmol/L Chloride 97 L (98-107) mmol/L Carbon Dioxide 23 (22-29) mmol/L Anion Gap 17.2 (5-19) BUN 22 H (6-20) mg/dL Creatinine 1.0 H (0.5-0.9) mg/dL GFR Calculation 64.3 L (90-130) mL/min Glucose 267 H (65-115) mg/dL Calculated Osmolal ity 289 (285-295) mOsm/k g Calcium 8.7 (8.5-10.5) mg/dL Total Bilirubin 0.4 (0.15-1.2) mg/dL AST 24 (0-32) U/L ALT 84 H (0-33) U/L Alkaline Phosphata se 170 H (35-105) IU/L Troponin T Baselin e 6 (0-10) ng/L Total Protein 7.1 (6.6-8.7) g/dL Albumin 4.1 (3.5-5.2) g/dL Globulin 3.0 (1.3-4.6) g/dL Imaging Data^: CXR: Attestation: I personally reviewed and interpreted this imaging study as follows: My impression: no acute abnormality EKG Data^: EKG 1: Attestation: I personally reviewed and interpreted this EKG as follows: EKG interpretation date: 06/30/20 EKG interpretation time: 04:34 Interpretation: nsr hr [address] or t wave abnormalities qrs 88 qtc 416 Discharge Plan Discharge Patient Disposition: Home Clinical Impression: Chest pain Qualifiers: Chest pain type: unspecified Qualified Code(s): R07.9 - Chest pain, unspecified Condition: Stable Prescriptions: No Action (DME) Wheeled walker with seat See Rx Instructions .Route .MEDSUPPLY Qty: 1 RF: 0 Levemir FlexTouch U-100 Insuln 100 unit/mL (3 mL) insulin pen 30 unit SUBCUT BID Qty: 15 RF: 0 dulaglutide 1.5 mg/0.5 mL pen injector 1.5 mg SUBCUT Q7D Qty: 2 RF: 2 metformin 500 mg tablet 500 mg PO BID Qty: 180 RF: 1 (DME) 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 meter [Accu-Chek Kori Plus Meter] Misc See Rx Instructions .ROUTE .MEDSUPPLY Qty: 1 RF: 0 (DME) Accu-Chek Kori Plus test strp Strip See Rx Instructions .ROUTE .MEDSUPPLY Qty: 100 RF: 1 (DME) lancets [Accu-Chek Fastclix Lancet Drum] Misc See Rx Instructions .ROUTE .MEDSUPPLY Qty: 100 RF: 1 omeprazole 40 mg capsule,delayed release(DR/EC) 40 mg PO DAILY Qty: 90 RF: 0 spironolactone 25 mg tablet 25 mg PO DAILY Qty: 90 RF: 0 montelukast [Singulair] 10 mg tablet 10 mg PO DAILY Qty: 90 RF: 1 atenolol 25 mg tablet 25 mg PO BID Qty: 180 RF: 0 albuterol sulfate [Ventolin HFA] 90 mcg/actuation HFA aerosol inhaler 2 puff INHALATION Q6H PRN (Reason: Shortness Of Breath Or Wheezing) Qty: 8.5 RF: 1 citalopram 20 mg tablet 20 mg PO DAILY Qty: 30 RF: 0 lisinopril-hydrochlorothiazide 20-25 mg tablet 1 tab PO DAILY Qty: 30 RF: 0 Discharge Orders: Discharge Order (Routine); Ordered 06/30/20 Ordered By: Kat Yang Referrals: Celina Ruiz DO [Primary Care Provider] - 1-3 days Discharge Diet: Advance as tolerated Discharge Activity: Resume usual activity Patient Instructions: Chest Pain (ED) Coding Level of Care Code ED Supervising Appraiser for Nagig Fwd Exam Comprehensive
[2020-06-30 05:02] LABS: Basophils # 0.1 10^3/uL (0.0-0.1); Basophils % 0.4 %; Eosinophils # 0.2 10^3/uL (0.0-0.8); Eosinophils % 1.3 %; Hematocrit 43.2 % (37.0-47.0); Hemoglobin 13.6 g/dL (11.5-15.3); Lymphocytes # 2.5 10^3/uL (0.8-4.8); Lymphocytes % 15.5 %; Mean Corpuscular HGB Conc 31.5 g/dL (30.0-36.0); Mean Corpuscular Hemoglobin 27.9 pg (28.0-34.0); Mean Corpuscular Volume 88.7 fL (81-99); Mean Platelet Volume 11.4 fL (7.4-10.4); Monocytes # 1.2 10^3/uL (0.2-0.9); Monocytes % 7.3 %; Neutrophils # 11.91 10^3/uL (1.8-7.7); Neutrophils % 74.2 %; Nucleated Red Blood Cells % 0 %; Platelet Count 361 10^3/cmm (130-400); Red Blood Count 4.87 10^6/uL (4.1-5.3); Red Cell Distribution Width 12.7 % (12.1-15.1); White Blood Count 16.1 10^3/uL (4.0-10.0)
[2020-06-30 05:08] LABS: Alanine Aminotransferase 84 U/L (0-33); Albumin Level 4.1 g/dL (3.5-5.2); Alkaline Phosphatase 170 IU/L (35-105); Anion Gap 17.2 (5-19); Aspartate Amino Transferase 24 U/L (0-32); Blood Urea Nitrogen 22 mg/dL (6-20); Calcium 8.7 mg/dL (8.5-10.5); Carbon Dioxide 23 mmol/L (22-29); Chloride 97 mmol/L (98-107); Glomerular Filtration Rate 64.3 mL/min (90-130); Glucose 267 mg/dL (65-115); Osmolality Calculated 289 mOsm/kg (285-295); Potassium 4.2 mmol/L (3.5-5.1); Sodium 133 mmol/L (136-145); Total Bilirubin 0.4 mg/dL (0.15-1.2); Total Protein 7.1 g/dL (6.6-8.7)
[2020-06-30 05:12] LABS: Troponin(5th) Baseline 6 ng/L (0-10)
[2020-06-30] MEDS: morphine 4 mg/mL SDV 1 mL IVP (05:15)
[2020-06-30] MEDS: ondansetron 2 mg/ML SDV 2 mL 4 MG IVP (05:15)
[2020-06-30 05:19] VITALS: BP 152/84; PULSE 93; RESP 18; O2SAT 100
[2020-06-30 05:32] VITALS: BP 142/78; PULSE 91; RESP 16; O2SAT 95
[2020-06-30] MEDS: HYDROcodone-acetaminophen 5-325 mg Tablet 1 TAB PO (05:32)
[2020-06-30 05:35] VITALS: BP 160/83; PULSE 94; RESP 14; O2SAT 93
== END 2020-06-30 05:41 | disposition home or self-care (01) ==
PROVIDERS: Emergency Provider Emergency Medicine; PCP Family Medicine
DX: R07.9 Chest pain, unspecified (principal); Z79.4 Long term (current) use of insulin; I10 Essential (primary) hypertension; E78.5 Hyperlipidemia, unspecified; E11.9 Type 2 diabetes mellitus without complications; F17.210 Nicotine dependence, cigarettes, uncomplicated
CPT/HCPCS: 12345; 71045; 80053; 84484; 85025; 93005; 96374; 96375; 99282; 99284; J2270; J2405

== ENCOUNTER → 2020-08-08 13:28 | Outpatient (BNVA) | payer MEDICARE, MEDICAID, SELFPAY | PROVIDERS: PCP Family Medicine; Visit Provider Family Medicine | DX: E11.9 Type 2 diabetes mellitus without complications (principal); Z13.6 Encounter for screening for cardiovascular disorders | CPT/HCPCS: 80053 ==

== ENCOUNTER 2020-09-07 11:41 | Emergency (ER) | payer MEDICARE, MEDICAID, SELFPAY ==
[2020-09-07 12:12] VITALS: BP 138/84; PULSE 93; RESP 16; TEMP 36.5; O2SAT 97; BMI 62.3
[2020-09-07 12:16] VITALS: BP 117/84; PULSE 90; RESP 18; TEMP 36.5; O2SAT 93
--- NOTE | 2020-09-07 12:17 | W.ED.SKABFB ---
HPI - Skin/Abscess/Foreign Bdy General: Chief complaint: Skin/Abscess/Foreign Body Stated complaint: Poss infected Spider Bite Time Seen by Provider: 09/07/20 12:17 History of Present Illness: HPI narrative: Patient is a 35-year-old female comes to the ED with skin lesion on her abdomen. Patient says approximately 3 days ago she started developing a red lesion on the abdomen. Patient has a history of MRSA. Denies any fevers. Associated symptoms: Deny chills, fever(s), nausea or vomiting Review of Systems Const: Denies: fever(s), chills or fatigue Eyes: Denies: change in vision or eye discomfort ENMT: Denies: throat pain, odynophagia, nasal discharge or nasal congestion Card: Denies: chest pain, palpitations, edema, swelling of feet/ankles, dyspnea on exertion or orthopnea Resp: Denies: dyspnea, productive cough or non-productive cough GI: Denies: abdominal pain, nausea, vomiting, diarrhea, constipation or hematochezia : Denies: flank pain, dysuria or hematuria Musc: Denies: neck pain, back pain or extremity swelling Skin/Breast: Reports: new lesions (red, tender warm nodule in RLQ of abdomen); Denies: rash Neuro: Denies: headache(s), numbness in extremities or weakness in extremities PFSH ED PFSH: Medical History Amenorrhea Asthma Benign essential HTN Bilateral chronic knee pain Bilateral leg edema Dyslipidemia 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 Morbid obesity with BMI of 60.0-69.9, adult Muscle spasms of both lower extremities Pain management contract signed Prolonged depression Spinal stenosis, thoracic region Type 2 diabetes mellitus, with long-term current use of insulin Surgical History History of cholecystectomy Family History Father CAD (coronary artery disease) Diabetes Hypertension Family/Other Cancer Mother Diabetes Hypertension Social History Smoking and tobacco status: current every day smoker cigarettes Packs smoked per day: 0.5 Alcohol intake: never Substance/Drug Use: never Caregiver/support person: Yes Household members: spouse and family Marital status: Current occupational status: disabled Current occupation: disabled History of recent travel: No Female Reproductive History: Date of last menstrual period: 07/20/20 Physical Exam Const: COMMON NORMALS: no acute distress, patient oriented x3 and alert GENERAL APPEARANCE: cooperative and comfortable NUTRITIONAL APPEARANCE: obese HENMT: COMMON NORMALS: normocephalic HEAD & SCALP: normocephalic MOUTH: Normal oral and palatal mucosa present THROAT: posterior oropharynx normal and uvula midline Neck/C-Spine: COMMON NORMALS: supple GENERAL: Yes normal visual inspection Resp: COMMON NORMALS: normal respiratory effort, No retractions, No use of accessory muscles and clear to auscultation bilaterally AUSCULTATION: clear to auscultation bilaterally Cardio: COMMON NORMALS: regular rate, regular rhythm, S1 normal heart sound present, S2 normal heart sound present, No gallops present (Cardio), No clicks present (Cardio), No murmurs present (Cardio) and Peripheral pulses 2+ throughout RATE: regular rate RHYTHM: regular rhythm HEART SOUNDS: S1 normal heart sound present and S2 normal heart sound present PERIPHERAL PULSES: Peripheral pulses 2+ throughout GI: COMMON NORMALS: Normal to inspection, nondistended, normoactive bowel sounds present, Soft to palpation, non-tender and no masses PALPATION: Yes Soft to palpation : COMMON NORMALS: Yes no CVA tenderness BLADDER/KIDNEY EXAM: Yes no CVA tenderness Back/Pelvis: COMMON NORMALS: no CVA tenderness Extremity: COMMON NORMALS: normal to inspection Neuro: COMMON NORMALS: patient oriented x3 and moves all extremities SENSORIUM/ORIENTATION: Yes alert Skin: NARRATIVE SKIN EXAM: Right lower quadrant of abdomen?warm erythematous nodule. It is fluctuant and non indurated. Tender upon palpation. No visible drainage or discharge. Findings suggestive of abscess. Procedures Abscess I/D Site: abdomen (in RLQ ) Side (if applicable): right Local Anesthetic: lidocaine 1% and with epi Amount of anesthesia used (mL): 10 Amount of fluid expressed (mL): 3 Irrigation: No Packing used?: none Course Vital Signs: Vital signs: Vital Signs Temperature 97.7 F 09/07/20 12:16 Pulse Rate 90 09/07/20 12:16 Respiratory Rate 18 09/07/20 12:16 Blood Pressure 117/84 09/07/20 12:16 Pulse Oximetry 93 12/31/20 12:16 MDM - Skin/Abscess/Foreign Bdy MDM Narrative: Medical decision making narrative: Patient is a 35-year-old female comes to the ED with an abscess on the skin abdomen right lower quadrant. Abscess was drained while here in the ED. Abscess culture obtained and pending in lab. Patient has a history of MRSA. Patient discharged with a prescription for Bactrim. Follow-up with PCP in 7 to 10 days to reevaluate. Return to ED precautions given. Patient understood agree with plan. Discharge Plan Discharge Patient Disposition: Home Clinical Impression: Abscess Condition: Stable Prescriptions: New sulfamethoxazole-trimethoprim 800-160 mg tablet 2 tab PO BID 7 Days Qty: 28 RF: 0 No Action dulaglutide 1.5 mg/0.5 mL pen injector 1.5 mg SUBCUT Q7D Qty: 2 RF: 2 hydrocodone-acetaminophen 5-325 mg tablet 1 tab PO Q6H PRNRF: 0 Levemir FlexTouch U-100 Insuln 100 unit/mL (3 mL) insulin pen 40 unit SUBCUT BID RF: 0 (DME) 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 meter [Accu-Chek Kori Plus Meter] Misc See Rx Instructions .ROUTE .MEDSUPPLY Qty: 1 RF: 0 (DME) lancets [Accu-Chek Fastclix Lancet Drum] Misc See Rx Instructions .ROUTE .MEDSUPPLY Qty: 100 RF: 1 montelukast [Singulair] 10 mg tablet 10 mg PO DAILY Qty: 90 RF: 1 atenolol 25 mg tablet 25 mg PO BID Qty: 180 RF: 0 albuterol sulfate [Ventolin HFA] 90 mcg/actuation HFA aerosol inhaler 2 puff INHALATION Q6H PRN (Reason: Shortness Of Breath Or Wheezing) Qty: 8.5 RF: 1 spironolactone 25 mg tablet 25 mg PO DAILY Qty: 90 RF: 0 omeprazole 40 mg capsule,delayed release(DR/EC) 40 mg PO DAILY Qty: 90 RF: 0 (DME) Accu-Chek Kori Plus test strp Strip See Rx Instructions .ROUTE .MEDSUPPLY Qty: 100 RF: 1 citalopram 20 mg tablet 20 mg PO DAILY Qty: 90 RF: 0 lisinopril-hydrochlorothiazide 20-25 mg tablet 1 tab PO DAILY Qty: 90 RF: 0 metformin 500 mg tablet 500 mg PO BID Qty: 60 RF: 0 Discharge Orders: Discharge ED (Routine); Ordered 09/07/20 Ordered By: Quinn Zhong Discharge Diet: Regular Discharge Activity: Resume usual activity Patient Instructions: Abscess Incision and Drainage (ED), Abscess (ED) Activity Restrictions/Additional Instructions: Follow-up with medical provider as directed in 7 to 10 days to reevaluate. Take full course of antibiotic as prescribed. Return to the ER or your medical provider if condition worsens. Please read and understand discharge instructions. If any questions, please ask. Coding Level of Care Code ED Equipment Detailer for Leonela Fwd Exam Comprehensive
[2020-09-07] MEDS: HYDROcodone-acetaminophen 7.5-325 mg Tablet 1 TAB PO (13:05)
--- NOTE | 2020-09-07 15:16 | PC.NURSE ---
Read and agree with assessment
== END 2020-09-07 13:15 | disposition home or self-care (01) ==
PROVIDERS: Emergency Provider Physician Assistant
DX: L02.211 Cutaneous abscess of abdominal wall (principal); Z79.4 Long term (current) use of insulin; I10 Essential (primary) hypertension; E11.9 Type 2 diabetes mellitus without complications; E78.5 Hyperlipidemia, unspecified; F17.210 Nicotine dependence, cigarettes, uncomplicated
CPT/HCPCS: 10060; 12345; 87070; 87075; 87077; 87186; 87205; 99281; 99283

== ENCOUNTER → 2020-10-11 10:09 | Outpatient (BNVA) | payer MEDICARE, MEDICAID, SELFPAY | PROVIDERS: Referring Provider Nurse Practitioner Family; Visit Provider Internal Medicine | DX: E11.40 Type 2 diabetes mellitus with diabetic neuropathy, unspecified (principal); Z79.4 Long term (current) use of insulin; E66.01 Morbid (severe) obesity due to excess calories; Z68.44 Body mass index [BMI] 60.0-69.9, adult; K76.0 Fatty (change of) liver, not elsewhere classified | CPT/HCPCS: 99205 ==

== ENCOUNTER 2020-10-15 16:24 | Emergency (ER) | payer MEDICARE, MEDICAID, SELFPAY ==
[2020-10-15 16:37] VITALS: BP 121/79; PULSE 84; RESP 14; TEMP 36.7; O2SAT 96; BMI 64.4
--- NOTE | 2020-10-15 16:40 | XRR_ITS ---
PROCEDURE INFORMATION: Exam: XR Right Ankle Exam date and time: 10/15/2020 4:41 PM Age: 35 years old Clinical indication: Injury or trauma; Other: Hit ankle; Blunt trauma; Right TECHNIQUE: Imaging protocol: XR Right ankle. Views: 3 or more views. COMPARISON: No relevant prior studies available. FINDINGS: Bones/joints: Negative for acute bony abnormality Soft tissues: Normal. XR/XR ankle RT min 3V* [id number] IMPRESSION: No acute findings.
--- NOTE | 2020-10-15 16:41 | W.ED.EXTPRO ---
HPI - Extremity Problem General: Chief complaint: Extremity Injury, Lower Stated complaint: RLE INJURY Time Seen by Provider: 10/15/20 16:35 Source: patient Mode of arrival: ambulatory Limitations: no limitations History of Present Illness: HPI Narrative: 35-year-old female comes in with injury to the right ankle. Patient reports that she hit the ankle against the bed frame this morning. Patient denies twisting or stepping wrong on the ankle. Patient appears well. Patient appears in no acute distress. 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 Morbid obesity with BMI of 60.0-69.9, adult Muscle spasms of both lower extremities Pain management contract signed Prolonged depression Spinal stenosis, thoracic region Type 2 diabetes mellitus, with long-term current use of insulin Surgical History History of cholecystectomy Family History Father CAD (coronary artery disease) Diabetes Hypertension Family/Other Cancer Mother Diabetes Hypertension Social History Smoking and tobacco status: current every day smoker cigarettes Packs smoked per day: 0.5 Alcohol intake: never Caregiver/support person: Yes Household members: spouse and family Marital status: Current occupational status: disabled Current occupation: disabled History of recent travel: No Female Reproductive History: Date of last menstrual period: 07/20/20 Physical Exam Const: COMMON NORMALS: no acute distress and patient oriented x3 GENERAL APPEARANCE: cooperative HENMT: COMMON NORMALS: normocephalic and Normal external nose present HEAD & SCALP: normal to inspection and normocephalic NOSE: Normal external nose present Eye: GENERAL EYE: appearance normal, both eyes and all related structures Neck/C-Spine: COMMON NORMALS: full ROM Chest: COMMONS NORMALS: normal inspection of the chest Resp: COMMON NORMALS: normal respiratory effort EFFORT & INSPECTION: Yes able to speak in complete sentences Cardio: COMMON NORMALS: regular rate and regular rhythm RATE: regular rate RHYTHM: regular rhythm GI: COMMON NORMALS: non-tender Extremity: NARRATIVE EXTREMITY EXAM: Tenderness is noted to the lateral malleus of the right lower extremity. No obvious bruising is noted. Pulses are intact to the dorsal pedis and cap refill is intact. Neuro: COMMON NORMALS: patient oriented x3 and moves all extremities Psych: COMMON NORMALS: mental status grossly normal and cooperative Skin: COMMON NORMALS: no rashes or lesions noted GENERAL SKIN EXAM: no rashes or lesions noted Course ED course: Reviewed with Vandana Shah who will assume care of my patient at the end of my shift, we are awaiting x-ray to be completed. Expect the patient to go home with follow-up as needed.wjw Vital Signs: Vital signs: Vital Signs Temperature 98.0 F 10/15/20 16:37 Pulse Rate 84 10/15/20 16:45 Respiratory Rate 18 10/15/20 16:45 Blood Pressure 121/79 10/15/20 16:45 Pulse Oximetry 96 10/15/20 16:45 Discharge Plan Discharge Condition: Good Prescriptions: No Action Jardiance 25 mg tablet 25 mg PO DAILY Qty: 90 RF: 3 metformin 500 mg tablet extended release 24 hr 500 mg PO BID Qty: 120 RF: 3 hydrocodone-acetaminophen 5-325 mg tablet 1 tab PO Q6H PRNRF: 0 Levemir FlexTouch U-100 Insuln 100 unit/mL (3 mL) insulin pen 70 unit SUBCUT BID RF: 0 (DME) 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 meter [Accu-Chek Kori Plus Meter] Misc See Rx Instructions .ROUTE .MEDSUPPLY Qty: 1 RF: 0 (DME) lancets [Accu-Chek Fastclix Lancet Drum] Misc See Rx Instructions .ROUTE .MEDSUPPLY Qty: 100 RF: 1 montelukast [Singulair] 10 mg tablet 10 mg PO DAILY Qty: 90 RF: 1 atenolol 25 mg tablet 25 mg PO BID Qty: 180 RF: 0 albuterol sulfate [Ventolin HFA] 90 mcg/actuation HFA aerosol inhaler 2 puff INHALATION Q6H PRN (Reason: Shortness Of Breath Or Wheezing) Qty: 8.5 RF: 1 (DME) Accu-Chek Kori Plus test strp Strip See Rx Instructions .ROUTE .MEDSUPPLY Qty: 100 RF: 1 citalopram 20 mg tablet 20 mg PO DAILY Qty: 90 RF: 0 lisinopril-hydrochlorothiazide 20-25 mg tablet 1 tab PO DAILY Qty: 90 RF: 0 spironolactone 25 mg tablet 25 mg PO DAILY Qty: 90 RF: 0 omeprazole 40 mg capsule,delayed release(DR/EC) 40 mg PO DAILY Qty: 90 RF: 0 Coding Level of Care Code ED Roustabout Hand for Chg Fwd Exam Comprehensive
[2020-10-15 16:45] VITALS: BP 121/79; PULSE 84; RESP 18; O2SAT 96
--- NOTE | 2020-10-15 16:46 | PC.NURSE ---
Read and agree with assessment
[2020-10-15] MEDS: ibuprofen 600 mg Tablet PO (17:15)
== END 2020-10-15 17:33 | disposition home or self-care (01) ==
PROVIDERS: Emergency Provider Nurse Practitioner Family
DX: M25.571 Pain in right ankle and joints of right foot (principal); I10 Essential (primary) hypertension; E78.5 Hyperlipidemia, unspecified; E11.9 Type 2 diabetes mellitus without complications; F17.210 Nicotine dependence, cigarettes, uncomplicated
CPT/HCPCS: 12345; 73610; 99281; 99283

== ENCOUNTER 2020-12-07 00:19 | Emergency (ER) | payer MEDICARE, MEDICAID, SELFPAY ==
[2020-12-07 00:23] VITALS: BP 141/90; PULSE 84; RESP 22; TEMP 36.5; O2SAT 96; BMI 63.4
--- NOTE | 2020-12-07 00:45 | ED_ITS ---
HPI - Female Genitourinary General: Chief complaint: Urogenital-Female Stated complaint: abcess on genitals Time Seen by Provider: 12/07/20 00:26 History of Present Illness: HPI Narrative: Patient relates she has a tender area down around her genital area for the last few days getting worse. Has no drainage. Has history of MRSA. Patient is diabetic she says new medications keep her blood sugars down 100-120 denies any other problems MD elicited complaint: other (Abscess) Onset (ago): day(s) Location of symptoms: other (Genital area right side) Severity: mild Severity scale (1-10): 3 Quality of pain: aching Consistency: constant and progressively worsening Vaginal discharge: none Vaginal bleeding: none Treatment prior to arrival: none Date of Last Menstrual Period: 07/20/20 Review of Systems Const: Denies: fever(s) or chills Skin/Breast: Reports: erythema and skin tenderness (Right side genital area been present few days) Psych: Denies: anxiety Endo: Reports: other (Sugars been good down the low 100s) [facility] ED PFSH: Medical History (Updated 12/07/20 @ 00:45 by TONYA Villeda) Amenorrhea Asthma Benign essential HTN Bilateral chronic knee pain Bilateral leg edema Dyslipidemia GERD (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 Morbid obesity with BMI of 60.0-69.9, adult Muscle spasms of both lower extremities Pain management contract signed Prolonged depression Spinal stenosis, thoracic region Type 2 diabetes mellitus, with long-term current use of insulin Surgical History History of cholecystectomy Family History Father CAD (coronary artery disease) Diabetes Hypertension Family/Other Cancer Mother Diabetes Hypertension Social History Smoking and tobacco status: current every day smoker cigarettes Packs smoked per day: 0.5 Alcohol intake: never Caregiver/support person: Yes Household members: spouse and family Marital status: Current occupational status: disabled Current occupation: disabled History of recent travel: No Female Reproductive History: Date of last menstrual period: 07/20/20 Physical Exam Const: COMMON NORMALS: no acute distress Psych: COMMON NORMALS: mental status grossly normal Skin: OTHER: Small pimple that come to head right genital area not on the labia. Approximately 2 inches away is tender to touch. Very mild erythema. Abscess is more in her apron area. Procedures Abscess I/D Site: other (Right side genital area) Side (if applicable): right Technique: other (18-gauge needle in size) Amount of fluid expressed (mL): 0.5 Irrigation: No Packing used?: none Course Vital Signs: Vital signs: Vital Signs Temperature 97.7 F 12/07/20 00:23 Pulse Rate 84 12/07/20 00:23 Respiratory Rate 22 H 12/07/20 00:23 Blood Pressure 141/90 12/07/20 00:23 Pulse Oximetry 96 12/07/20 00:23 Discharge Plan Discharge Patient Disposition: Home Clinical Impression: Abscess Condition: Stable Prescriptions: New clindamycin HCl 300 mg capsule 300 mg PO Q8H 7 Days Qty: 21 RF: 0 No Action Jardiance 25 mg tablet 25 mg PO DAILY Qty: 90 RF: 3 metformin 500 mg tablet extended release 24 hr 500 mg PO BID Qty: 120 RF: 3 hydrocodone-acetaminophen 5-325 mg tablet 1 tab PO Q6H PRNRF: 0 (DME) 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 meter [Accu-Chek Kori Plus Meter] Misc See Rx Instructions .ROUTE .MEDSUPPLY Qty: 1 RF: 0 (DME) lancets [Accu-Chek Fastclix Lancet Drum] Misc See Rx Instructions .ROUTE .MEDSUPPLY Qty: 100 RF: 1 atenolol 25 mg tablet 25 mg PO BID Qty: 180 RF: 0 albuterol sulfate [Ventolin HFA] 90 mcg/actuation HFA aerosol inhaler 2 puff INHALATION Q6H PRN (Reason: Shortness Of Breath Or Wheezing) Qty: 8.5 RF: 1 (DME) Accu-Chek Kori Plus test strp Strip See Rx Instructions .ROUTE .MEDSUPPLY Qty: 100 RF: 1 citalopram 20 mg tablet 20 mg PO DAILY Qty: 90 RF: 0 lisinopril-hydrochlorothiazide 20-25 mg tablet 1 tab PO DAILY Qty: 90 RF: 0 spironolactone 25 mg tablet 25 mg PO DAILY Qty: 90 RF: 0 omeprazole 40 mg capsule,delayed release(DR/EC) 40 mg PO DAILY Qty: 90 RF: 0 montelukast [Singulair] 10 mg tablet 10 mg PO DAILY Qty: 90 RF: 1 Levemir FlexTouch U-100 Insuln 100 unit/mL (3 mL) insulin pen 125 unit SUBCUT BID RF: 0 Humulin R U-500 (Conc) Kwikpen 500 unit/mL (3 mL) insulin pen See Rx Instructions SUBCUT QAM Qty: 12 RF: 3 (DME) FreeStyle Zackery 2 Sensor Kit See Rx Instructions .ROUTE .MEDSUPPLY Qty: 2 RF: 3 (DME) FreeStyle Zackery 2 [place] Misc See Rx Instructions .ROUTE .MEDSUPPLY Qty: 1 RF: 0 Discharge Orders: Discharge ED (Routine); Ordered 12/07/20 Ordered By: Jakub Bianchi Discharge Diet: Usual diet Discharge Activity: Resume usual activity Patient Instructions: Abscess Incision and Drainage (ED) Activity Restrictions/Additional Instructions: Follow-up with medical provider as directed. Take medications as prescribed. Return to the ER or your medical provider if condition worsens. Please read and understand discharge instructions. If any questions ask please. Coding Level of Care Code ED Derrick Boat Lever Operator for Leonela Fwtish Exam Expanded Problem Focused
--- NOTE | 2020-12-07 00:53 | PC.NURSE ---
patient report received from NICK Sheehan and care transferred to NICK Al
[2020-12-07] MEDS: HYDROcodone-acetaminophen 5-325 mg Tablet 1 TAB PO (00:57)
[2020-12-07] MEDS: clindamycin 150 mg Capsule 300 MG PO (00:57)
== END 2020-12-07 01:00 | disposition home or self-care (01) ==
PROVIDERS: Emergency Provider Nurse Practitioner Family
DX: N76.4 Abscess of vulva (principal); I10 Essential (primary) hypertension; E78.5 Hyperlipidemia, unspecified; E11.9 Type 2 diabetes mellitus without complications; Z79.4 Long term (current) use of insulin; F17.210 Nicotine dependence, cigarettes, uncomplicated
CPT/HCPCS: 10160; 87070; 99283

== ENCOUNTER → 2021-01-08 12:51 | Outpatient (BNVA) | payer MEDICARE, MEDICAID, SELFPAY | PROVIDERS: PCP Nurse Practitioner Family; Visit Provider Specialist | DX: G56.03 Carpal tunnel syndrome, bilateral upper limbs (principal); G56.23 Lesion of ulnar nerve, bilateral upper limbs; E11.40 Type 2 diabetes mellitus with diabetic neuropathy, unspecified; Z79.4 Long term (current) use of insulin; F17.210 Nicotine dependence, cigarettes, uncomplicated | CPT/HCPCS: 95910 ==

== ENCOUNTER 2021-01-26 12:40 | Emergency (ER) | payer MEDICARE, MEDICAID, SELFPAY ==
[2021-01-26 12:53] VITALS: BP 160/77; PULSE 89; RESP 18; TEMP 37.1; O2SAT 90; BMI 64.0
--- NOTE | 2021-01-26 13:14 | ED_ITS ---
HPI - Extremity Problem General: Chief complaint: Extremity Problem,Nontraumatic Stated complaint: BACK OF RLE SWOLLEN AND THROBBING Time Seen by Provider: 01/26/21 12:59 History of Present Illness: HPI Narrative: Patient states behind her right knee it is been tight and up into her hamstring area last couple days. She denies any redness. Denies any known injury. Complaint: extremity pain and extremity swelling Onset (ago): day(s) Pain Consistency: intermittent Location: right and lower extremity Severity scale (1-10): 2 Quality: aching Radiation: none Relieving factors: immobilization Exacerbating factors: range of motion and weight bearing Associated symptoms: Reports no associated symptoms; Deny chest pain, fever(s) or rash Review of Systems Const: Denies: fever(s), chills or body aches Eyes: Denies: change in vision or blurry vision ENMT: Denies: throat pain or nasal congestion Card: Denies: chest pain or dyspnea on exertion Resp: Denies: dyspnea, productive cough or non-productive cough GI: Denies: abdominal pain, nausea or vomiting Musc: Reports: extremity pain (Hurts behind right knee and right hamstring area); Denies: back pain, extremity swelling, muscle cramps or muscle weakness Skin/Breast: Denies: rash Neuro: Denies: headache(s) Psych: Denies: anxiety or depression Sunday/Lymph: Denies: easy bruising PFS ED PFSH: Medical History (Updated 01/26/21 @ 13:19 by TONYA Villeda) Amenorrhea Asthma Benign essential HTN Bilateral chronic knee pain Bilateral leg edema Dyslipidemia GERD (gastroesophageal reflux disease) 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 Morbid obesity with BMI of 60.0-69.9, adult Muscle spasms of both lower extremities Pain management contract signed Prolonged depression Spinal stenosis, thoracic region Type 2 diabetes mellitus, with long-term current use of insulin Surgical History History of cholecystectomy Family History Father CAD (coronary artery disease) Diabetes Hypertension Family/Other Cancer Mother Diabetes Hypertension Social History Smoking and tobacco status: current every day smoker cigarettes Packs smoked per day: 0.5 Alcohol intake: never Caregiver/support person: Yes Household members: spouse and family Marital status: Current occupational status: disabled Current occupation: disabled History of recent travel: No Female Reproductive History: Date of last menstrual period: 07/20/20 Physical Exam Const: COMMON NORMALS: no acute distress Extremity: RIGHT LOWER EXTREMITY: Yes upper leg (Tenderness to hamstring with range of motion and palpation) Right upper leg: Yes other (No redness or swelling noted to the leg R calf. Holmans negative) Psych: COMMON NORMALS: mental status grossly normal Course Vital Signs: Vital signs: Vital Signs Temperature 98.8 F 01/26/21 12:53 Pulse Rate 89 01/26/21 12:53 Respiratory Rate 18 01/26/21 12:53 Blood Pressure 160/77 01/26/21 12:53 Pulse Oximetry 90 01/26/21 12:53 MDM - Extremity (Nontraumatic) MDM Narrative: Medical decision making narrative: Patient sent here from walk- in clinic for possibility of a clot. Patient's presenting symptoms and leg does not appear to have a clot. There is no redness no swelling she has tenderness in directly in the hamstring muscle itself. Hurts with range of motion. Homans' sign is negative. Instructed patient on what to look for and DVT. Patient will follow up as needed. Discharge Plan Discharge Patient Disposition: Home Clinical Impression: Strain of right hamstring Qualifiers: Encounter type: initial encounter Qualified Code(s): S76.311A - Strain of muscle, fascia and tendon of the posterior muscle group at thigh level, right thigh, initial encounter Condition: Stable Prescriptions: New Voltaren 1 % gel 4 g topical QID Qty: 100 RF: 0 No Action Jardiance 25 mg tablet 25 mg PO DAILY Qty: 90 RF: 3 metformin 500 mg tablet extended release 24 hr 500 mg PO BID Qty: 120 RF: 3 hydrocodone-acetaminophen 5-325 mg tablet 1 tab PO Q6H PRNRF: 0 gabapentin 300 mg capsule 300 mg PO DAILY RF: 0 (DME) 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 meter [Accu-Chek Kori Plus Meter] Misc See Rx Instructions .ROUTE .MEDSUPPLY Qty: 1 RF: 0 (DME) lancets [Accu-Chek Fastclix Lancet Drum] Misc See Rx Instructions .ROUTE .MEDSUPPLY Qty: 100 RF: 1 atenolol 25 mg tablet 25 mg PO BID Qty: 180 RF: 0 albuterol sulfate [Ventolin HFA] 90 mcg/actuation HFA aerosol inhaler 2 puff INHALATION Q6H PRN (Reason: Shortness Of Breath Or Wheezing) Qty: 8.5 RF: 1 (DME) Accu-Chek Kori Plus test strp Strip See Rx Instructions .ROUTE .MEDSUPPLY Qty: 100 RF: 1 citalopram 20 mg tablet 20 mg PO DAILY Qty: 90 RF: 0 lisinopril-hydrochlorothiazide 20-25 mg tablet 1 tab PO DAILY Qty: 90 RF: 0 spironolactone 25 mg tablet 25 mg PO DAILY Qty: 90 RF: 0 omeprazole 40 mg capsule,delayed release(DR/EC) 40 mg PO DAILY Qty: 90 RF: 0 montelukast [Singulair] 10 mg tablet 10 mg PO DAILY Qty: 90 RF: 1 Levemir FlexTouch U-100 Insuln 100 unit/mL (3 mL) insulin pen 125 unit SUBCUT BID RF: 0 Humulin R U-500 (Conc) Kwikpen 500 unit/mL (3 mL) insulin pen See Rx Instructions SUBCUT QAM Qty: 12 RF: 3 (DME) FreeStyle Zackery 2 Sensor Kit See Rx Instructions .ROUTE .MEDSUPPLY Qty: 2 RF: 3 (DME) FreeStyle Zackery 2 [place] Misc See Rx Instructions .ROUTE .MEDSUPPLY Qty: 1 RF: 0 Discharge Orders: Discharge ED (Routine); Ordered 01/26/21 Ordered By: Jakub Bianchi Referrals: Mallory Berry FNP [Primary Care Provider] - Discharge Diet: Usual diet Discharge Activity: Resume usual activity Patient Instructions: Muscle Strain (ED) Activity Restrictions/Additional Instructions: Follow-up with medical provider as directed. Take medications as prescribed. Return to the ER or your medical provider if condition worsens. Please read and understand discharge instructions. If any questions ask please. If you have redness and swelling to the right lower extremity, enlargement of extremity, worsening pain and symptoms please return here or your primary care provider. Coding Level of Care Code ED Computer Network Support Specialist for Nagig Fwd Exam Expanded Problem Focused
== END 2021-01-26 13:40 | disposition home or self-care (01) ==
LOC: ER 13:26
PROVIDERS: Emergency Provider Nurse Practitioner Family; PCP Nurse Practitioner Family
DX: S76.311A Strain of muscle, fascia and tendon of the posterior muscle group at thigh level, right thigh, initial encounter (principal); Z79.4 Long term (current) use of insulin; I10 Essential (primary) hypertension; E78.5 Hyperlipidemia, unspecified; E11.9 Type 2 diabetes mellitus without complications; F17.210 Nicotine dependence, cigarettes, uncomplicated; X58.XXXA Exposure to other specified factors, initial encounter
CPT/HCPCS: 99282

== ENCOUNTER 2021-01-30 17:23 | Emergency (ER) | payer MEDICARE, MEDICAID, SELFPAY ==
[2021-01-30 17:27] VITALS: BP 130/76; PULSE 86; RESP 18; TEMP 36.8; O2SAT 98; BMI 64.0
--- NOTE | 2021-01-30 17:42 | XRR_ITS ---
PROCEDURE INFORMATION: Exam: XR Right Knee Exam date and time: 01/30/2021 6:00 PM Age: 35 years old Clinical indication: Injury or trauma; Fall; Blunt trauma; Injury date: 01/30/2021; Injury details: PT fell out of bed; Patient HX: Fell out of bed, right knee pain 06/17, no HX cancer, no SX on right leg; Additional info: Injury to right knee TECHNIQUE: Imaging protocol: XR Right knee. Views: 3 views. Total images: 3 COMPARISON: No relevant prior studies available. FINDINGS: Bones/joints: No visible fracture, subluxation, or dislocation radiographically. No visible joint effusion. Moderate primary osteoarthritis. Mild medial joint space height loss. Soft tissues: Soft tissues without evidence of edema, swelling, contusion, emphysema, or radiopaque foreign body. Other findings: Obesity. XR/XR knee RT 3V* [id number] IMPRESSION: Nonacute.
--- NOTE | 2021-01-30 19:22 | ED_ITS ---
HPI - Extremity Problem General: Chief complaint: Extremity Injury, Lower Stated complaint: R knee/leg pain Time Seen by Provider: 01/30/21 19:19 History of Present Illness: HPI Narrative: Patient is a 35-year-old female comes to the ED with right knee pain and injury. Patient says this morning she rolled out of bed and her right knee hit the floor. She is complaining of having pain now in her right knee. She says that hurts for her to flex right knee. She rates the pain a 9 out of 10. Patient says she has a prescription for hydrocodone and last dose was around 3 PM. Associated symptoms: Deny chest pain, fever(s) or rash Review of Systems Const: Denies: fever(s), chills or fatigue Eyes: Denies: change in vision or eye discomfort ENMT: Denies: throat pain, odynophagia, nasal discharge or nasal congestion Card: Denies: chest pain, palpitations, edema, swelling of feet/ankles, dyspnea on exertion or orthopnea Resp: Denies: dyspnea, productive cough or non-productive cough GI: Denies: abdominal pain, nausea, vomiting, diarrhea, constipation or hematochezia : Denies: flank pain, dysuria or hematuria Musc: Reports: extremity pain (Right knee); Denies: neck pain, back pain or extremity swelling Skin/Breast: Denies: rash or new lesions Neuro: Denies: headache(s), numbness in extremities or weakness in extremities [facility] ED PFSH: Medical History Amenorrhea Asthma Benign essential HTN Bilateral chronic knee pain Bilateral leg edema Dyslipidemia GERD (gastroesophageal reflux disease) 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 Morbid obesity with BMI of 60.0-69.9, adult Muscle spasms of both lower extremities Pain management contract signed Prolonged depression Spinal stenosis, thoracic region Type 2 diabetes mellitus, with long-term current use of insulin Surgical History History of cholecystectomy Family History Father CAD (coronary artery disease) Diabetes Hypertension Family/Other Cancer Mother Diabetes Hypertension Social History Smoking and tobacco status: current every day smoker cigarettes Packs smoked per day: 0.5 Alcohol intake: never Caregiver/support person: Yes Household members: spouse and family Marital status: Current occupational status: disabled Current occupation: disabled History of recent travel: No Female Reproductive History: Date of last menstrual period: 07/20/20 Physical Exam Const: COMMON NORMALS: no acute distress, patient oriented x3 and alert GENERAL APPEARANCE: cooperative and comfortable NUTRITIONAL APPEARANCE: obese morbidly obese HENMT: COMMON NORMALS: normocephalic HEAD & SCALP: normocephalic MOUTH: Normal oral and palatal mucosa present THROAT: posterior oropharynx normal and uvula midline Eye: COMMON NORMALS: Equal, round and reactive pupils present PUPIL: Yes Equal, round and reactive pupils present Neck/C-Spine: COMMON NORMALS: supple GENERAL: Yes normal visual inspection Resp: COMMON NORMALS: normal respiratory effort, No retractions, No use of accessory muscles and clear to auscultation bilaterally AUSCULTATION: clear to auscultation bilaterally Cardio: COMMON NORMALS: regular rate, regular rhythm, S1 normal heart sound present, S2 normal heart sound present, No gallops present (Cardio), No clicks present (Cardio), No murmurs present (Cardio) and Peripheral pulses 2+ throughout RATE: regular rate RHYTHM: regular rhythm HEART SOUNDS: S1 normal heart sound present and S2 normal heart sound present PERIPHERAL PULSES: Peripheral pulses 2+ throughout GI: COMMON NORMALS: Normal to inspection, nondistended, normoactive bowel gricelda nds present, Soft to palpation, non-tender and no masses PALPATION: Yes Soft to palpation : COMMON NORMALS: Yes no CVA tenderness BLADDER/KIDNEY EXAM: Yes no CVA tenderness Back/Pelvis: COMMON NORMALS: no CVA tenderness Extremity: NARRATIVE EXTREMITY EXAM: right knee?no visible deformity or swell ing seen. There is some mild ecchymosis seen on the lateral aspect of knee. Limited range of motion due to pain. Tenderness over the lateral aspect of the knee joint. Neurovascular intact distally. GENERAL: Yes normal exam except as noted Neuro: COMMON NORMALS: patient oriented x3 and moves all extremities SENSORIUM/ORIENTATION: Yes alert Skin: GENERAL SKIN EXAM: dry skin Course Vital Signs: Vital signs: Vital Signs Temperature 98.2 F 01/30/21 17:27 Pulse Rate 77 01/30/21 19:23 Respiratory Rate 20 H 01/30/21 19:23 Blood Pressure 136/86 01/30/21 19:23 Pulse Oximetry 96 01/30/21 19:23 MDM - Extremity (Nontraumatic) Imaging Data^: Xray Ortho: Attestation: I personally reviewed and interpreted this imaging study as follows: Radiologist's impression: [address] [address] XRay Report Signed Patient: Lorraine Curry Unit #: [id number] : 1985 Age/Sex: 35 / F ADM Date: 01/30/21 Loc: ER Room/Bed: Attending Dr: Ordering Provider/Ordering MD: Quinn Zhong Date of Service: 01/30/21 Procedure(s): XR knee RT 3V* [id number] Accession Number(s): [id number] Report Number: [id number] PROCEDURE INFORMATION: Exam: XR Right Knee Exam date and time: 01/30/2021 6:00 PM Age: 35 years old Clinical indication: Injury or trauma; Fall; Blunt trauma; Injury date: 01/30/2021; Injury details: PT fell out of bed; Patient HX: Fell out of bed, right knee pain 10/10, no HX cancer, no SX on right leg; Additional info: Injury to right knee TECHNIQUE: Imaging protocol: XR Right knee. Views: 3 views. Total images: 3 COMPARISON: No relevant prior studies available. FINDINGS: Bones/joints: No visible fracture, subluxation, or dislocation radiographically. No visible joint effusion. Moderate primary osteoarthritis. Mild medial joint space height loss. Soft tissues: Soft tissues without evidence of edema, swelling, contusion, emphysema, or radiopaque foreign body. Other findings: Obesity. XR/XR knee RT 3V* [id number] IMPRESSION: Nonacute. Dictated By: Jean Carlos Fischer Signed By: Jean Carlos Fischer Signed Date/Time: 01/30/211916 DD/ 15 Discharge Plan Discharge Patient Disposition: Home Clinical Impression: Contusion of knee, right Qualifiers: Encounter type: initial encounter Qualified Code(s): S80.01XA - Contusion of right knee, initial encounter Condition: Stable Prescriptions: No Action Jardiance 25 mg tablet 25 mg PO DAILY Qty: 90 RF: 3 metformin 500 mg tablet extended release 24 hr 500 mg PO BID Qty: 120 RF: 3 hydrocodone-acetaminophen 5-325 mg tablet 1 tab PO Q6H PRNRF: 0 gabapentin 300 mg capsule 300 mg PO DAILY RF: 0 (DME) 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 meter [Accu-Chek Kori Plus Meter] Misc See Rx Instructions .ROUTE .MEDSUPPLY Qty: 1 RF: 0 (DME) lancets [Accu-Chek Fastclix Lancet Drum] Misc See Rx Instructions .ROUTE .MEDSUPPLY Qty: 100 RF: 1 atenolol 25 mg tablet 25 mg PO BID Qty: 180 RF: 0 albuterol sulfate [Ventolin HFA] 90 mcg/actuation HFA aerosol inhaler 2 puff INHALATION Q6H PRN (Reason: Shortness Of Breath Or Wheezing) Qty: 8.5 RF: 1 (DME) Accu-Chek Kori Plus test strp Strip See Rx Instructions .ROUTE .MEDSUPPLY Qty: 100 RF: 1 citalopram 20 mg tablet 20 mg PO DAILY Qty: 90 RF: 0 lisinopril-hydrochlorothiazide 20-25 mg tablet 1 tab PO DAILY Qty: 90 RF: 0 spironolactone 25 mg tablet 25 mg PO DAILY Qty: 90 RF: 0 omeprazole 40 mg capsule,delayed release(DR/EC) 40 mg PO DAILY Qty: 90 RF: 0 montelukast [Singulair] 10 mg tablet 10 mg PO DAILY Qty: 90 RF: 1 Levemir FlexTouch U-100 Insuln 100 unit/mL (3 mL) insulin pen 125 unit SUBCUT BID RF: 0 Humulin R U-500 (Conc) Kwikpen 500 unit/mL (3 mL) insulin pen See Rx Instructions SUBCUT QAM Qty: 12 RF: 3 (DME) FreeStyle Zackery 2 Sensor Kit See Rx Instructions .ROUTE .MEDSUPPLY Qty: 2 RF: 3 (DME) FreeStyle Zackery 2 [place] Misc See Rx Instructions .ROUTE .MEDSUPPLY Qty: 1 RF: 0 Voltaren 1 % gel 4 g topical QID Qty: 100 RF: 0 Discharge Orders: Discharge ED (Routine); Ordered 01/30/21 Ordered By: Quinn Zhong Referrals: Mallory Berry FNP [Primary Care Provider] - Discharge Diet: Regular Discharge Activity: Increase activity as tolerated Patient Instructions: Contusion in Adults (ED), Knee Pain (ED), Opioid Safety Activity Restrictions/Additional Instructions: Follow-up with medical provider as directed in 7 to 10 days for reevaluation. Rest, elevate and ice right knee to help with symptoms. Continue taking your previously prescribed pain medication as needed. return to the ER or your medical provider if condition worsens. Please read and understand discharge instructions. Thank you for choosing [facility] for your healthcare needs today. Please realize this is an emergency room and that we are providing you with a medical screening exam and this may not be complete and all inclusive of all the testing and or work up that you may need to determine your ailment or severity of your illness. It is very important that you follow up as instructed or that you return to the Emergency Department should you have concerns or if your condition changes or worsens in any way. Coding Level of Care Code ED Accounts Executive for Leonela Escobedo Exam Comprehensive
[2021-01-30 19:23] VITALS: BP 136/86; PULSE 77; RESP 20; O2SAT 96
[2021-01-30] MEDS: HYDROcodone-acetaminophen 7.5-325 mg Tablet 1 TAB PO (19:53)
== END 2021-01-30 19:55 | disposition home or self-care (01) ==
PROVIDERS: Emergency Provider Physician Assistant; PCP Nurse Practitioner Family
DX: S80.01XA Contusion of right knee, initial encounter (principal); Z79.4 Long term (current) use of insulin; I10 Essential (primary) hypertension; E78.5 Hyperlipidemia, unspecified; E11.9 Type 2 diabetes mellitus without complications; F17.210 Nicotine dependence, cigarettes, uncomplicated; W06.XXXA Fall from bed, initial encounter
CPT/HCPCS: 73562; 99283

== ENCOUNTER 2021-03-01 21:57 | Emergency (ER) | payer MEDICARE, MEDICAID, SELFPAY ==
[2021-03-01 22:29] VITALS: BP 145/78; PULSE 75; RESP 18; TEMP 36.7; O2SAT 95; BMI 62.4
[2021-03-01 22:55] LABS: Add Urine Microscopic? NO; Charge for UA Resulting for Rev
[2021-03-01 23:12] LABS: Bilirubin Urine Neg (Negative); Blood Urine Neg (Negative); Glucose Urine UA 4+ (Normal); Ketones Urine Negative (Negative); Leukocyte Esterase Urine Negative (Negative); Nitrate Urine Negative (Negative); Protein Urine Neg (Negative); Urine Appearance Clear (CLEAR); Urine Color Straw (Yellow); Urobilinogen Urine Norm (Negative); pH Urine 5 (5-7)
--- NOTE | 2021-03-02 01:07 | ED_ITS ---
HPI - Back Pain/Injury General: Chief Complaint: Back Pain/Injury Stated Complaint: back pain, poss kidneys Time Seen by Provider: 03/02/21 00:56 Source: patient Mode of arrival: ambulatory Limitations: no limitations History of Present Illness: HPI Narrative: Patient is a 35-year-old female who presents to ED today with a complaint of back pain over the past 2 to 3 days. She has not had any injury or trauma. Patient tells me she chronically suffers from back pain. She currently is taking hydrocodone daily for her back pain. She states normally her pain is located in her thoracic midline but states today it is extending onto both sides of her back. Pain is worse with movement. Pain does not radiate into her chest or abdomen. She is concerned it could be her kidneys. She does not complain of dysuria, frequency, urgency. No fevers. No sudden onset. Denies lightheadedness, dizziness, nausea/vomiting. MD elicited complaint: back pain Pertinent past history: prior back pain Onset (ago): day(s) Timing: constant Similar Symptoms Previously: Yes Location: thoracic spine, right upper back and left upper back Radiation: none Exacerbating factors: movement Relieving factors: none Associated symptoms: Reports no associated symptoms; Deny abdominal pain, chills, difficulty walking, dysuria, fatigue, fever(s), nausea, syncope, urinary urgency or vomiting Treatments prior to arrival: prescription analgesics Work related injury: No Review of Systems Const: Denies: fever(s), chills, body aches, fatigue or malaise Eyes: Denies: change in vision, blurry vision, photophobia, floaters or seeing flashes Card: Denies: chest pain, palpitations, irregular heart rhythm, edema, lightheadedness, syncope or pre-syncope Resp: Denies: dyspnea or chest congestion GI: Denies: abdominal pain, nausea, vomiting or diarrhea : Denies: difficulty voiding, dysuria, urinary frequency, urinary urgency or urinary hesitancy Musc: Reports: back pain; Denies: neck pain, extremity pain, extremity swelling, joint pain or joint swelling Skin/Breast: Denies: rash Neuro: Denies: headache(s), numbness in extremities, weakness in extremities, sensory changes, difficulty walking or dizziness PFS ED PFSH: Medical History (Updated 03/02/21 @ 01:54 by KAMRON Boo) Amenorrhea Asthma Benign essential HTN Bilateral chronic knee pain Bilateral leg edema Dyslipidemia 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 Morbid obesity with BMI of 60.0-69.9, adult Muscle spasms of both lower extremities Pain management contract signed Prolonged depression Spinal stenosis, thoracic region Type 2 diabetes mellitus, with long-term current use of insulin Surgical History History of cholecystectomy Family History Father CAD (coronary artery disease) Diabetes Hypertension Family/Other Cancer Mother Diabetes Hypertension Social History Smoking and tobacco status: current every day smoker cigarettes Packs smoked per day: 0.5 Alcohol intake: never Caregiver/support person: Yes Household members: spouse and family Marital status: Current occupational status: disabled Current occupation: disabled History of recent travel: No Female Reproductive History: Date of last menstrual period: 07/20/20 Physical Exam Const: COMMON NORMALS: no acute distress, patient oriented x3, no limitations and alert NUTRITIONAL APPEARANCE: obese morbidly obese (BMI over 62) ORIENTATION/CONSCIOUSNESS: Yes awake, Yes oriented to person, Yes oriented to place and Yes oriented to time HENMT: COMMON NORMALS: normocephalic and atraumatic HEAD & SCALP: normocephalic and atraumatic Chest: COMMONS NORMALS: normal inspection of the chest and normal palpation of entire chest wall Resp: COMMON NORMALS: normal respiratory effort and clear to auscultation bilaterally AUSCULTATION: clear to auscultation bilaterally Cardio: COMMON NORMALS: regular rate and regular rhythm RATE: regular rate RHYTHM: regular rhythm GI: COMMON NORMALS: Normal to inspection, nondistended, normoactive bowel sounds present, Soft to palpation and non-tender PALPATION: Yes Soft to palpation OTHER: limited secondary to body habitus Back/Pelvis: THORACIC SPINE/UPPER BACK: Yes thoracic ROM normal, Yes thoracic spinal tenderness and Yes paraspinal muscle tenderness LUMBAR SPINE/LOWER BACK: Yes lumbar ROM normal, No lumbar spinal tenderness and No paraspinal muscle tenderness PELVIS: Yes buttocks normal SACROILIAC JOINTS: Yes SI joints normal BACK IMAGE (FEMALE): 1. 2. bilateral thoracic paraspinal musculature tenderness; pain reproduced with palpation Extremity: COMMON NORMALS: normal to inspection GENERAL: Yes normal exam except as noted Neuro: COMMON NORMALS: patient oriented x3, moves all extremities, no focal motor deficits, no sensory deficits noted and gait normal SENSORIUM/ORIENTATION: Yes alert, Yes oriented to person, Yes oriented to place and Yes oriented to time Skin: COMMON NORMALS: no rashes or lesions noted GENERAL SKIN EXAM: no rashes or lesions noted TRAUMA: no lacerations or abrasions Course Vital Signs: Vital signs: Vital Signs Temperature 98.0 F 03/01/21 22:29 Pulse Rate 75 03/01/21 22:29 Respiratory Rate 18 03/01/21 22:29 Blood Pressure 145/78 03/01/21 22:29 Pulse Oximetry 95 03/01/21 22:29 MDM - Back Pain/Injury 2 Lab Data: Labs: Lab Results 03/01/21 03/01/21 03/01/21 Range/Units 01:25 01:25 22:47 WBC 12.8 H (4.0-10.0) 10^3/ uL RBC 5.30 (4.1-5.3) 10^6/u L Hgb 14.0 (11.5-15.3) g/dL Hct 45.2 (37.0-47.0) % MCV 85.3 (81-99) fL MCH 26.4 L (28.0-34.0) pg MCHC 31.0 (30.0-36.0) g/dL RDW 14.5 (12.1-15.1) % Plt Count 281 (130-400) 10^3/c mm MPV 10.5 H (7.4-10.4) fL Neut % (Auto) 75.4 % Lymph % (Auto) 15.2 % [place] % (Auto) 5.8 % Eos % (Auto) 1.7 % Baso % (Auto) 0.4 % Neut # (Auto) 9.64 H (1.8-7.7) 10^3/u L Lymph # (Auto) 1.9 (0.8-4.8) 10^3/u L [place] # (Auto) 0.7 (0.2-0.9) 10^3/u L Eos # (Auto) 0.2 (0.0-0.8) 10^3/u L Baso # (Auto) 0.1 (0.0-0.1) 10^3/u L Nucleated RBC % (a uto) 0 % Nucleated RBCs # 0.0 /100WBC Sodium 140 (136-145) mmol/L Potassium 4.1 (3.5-5.1) mmol/L Chloride 102 (98-107) mmol/L Carbon Dioxide 26 (22-29) mmol/L Anion Gap 16.1 (5-19) BUN 10 (6-20) mg/dL Creatinine 0.6 (0.5-0.9) mg/dL GFR Calculation 115.1 (90-130) mL/min Glucose 149 H (65-115) mg/dL Calculated Osmolal ity 292 (285-295) mOsm/k g Calcium 9.3 (8.5-10.5) mg/dL Total Bilirubin 0.4 (0.15-1.2) mg/dL AST 17 (0-32) U/L ALT 75 H (0-33) U/L Alkaline Phosphata se 124 H (35-105) IU/L Total Protein 7.4 (6.6-8.7) g/dL Albumin 4.2 (3.5-5.2) g/dL Globulin 3.2 (1.3-4.6) g/dL Urine Color Straw (Yellow) Urine Appearance Clear (CLEAR) Urine pH 5 (5-7) Ur Specific Gravit y 1.010 (1.005-1.030) Urine Protein Neg (Negative) Urine Glucose (UA) 4+ H (Normal) Urine Ketones Negative (Negative) Urine Blood Neg (Negative) Urine Nitrate Negative (Negative) Urine Bilirubin Neg (Negative) Urine Urobilinogen Norm (Negative) mg/dL Ur Leukocyte Maame ase Negative (Negative) Urine HCG, Qual (Negative) 03/01/21 Range/Units 22:47 WBC (4.0-10.0) 10^3/ uL RBC (4.1-5.3) 10^6/u L Hgb (11.5-15.3) g/dL Hct (37.0-47.0) % MCV (81-99) fL MCH (28.0-34.0) pg MCHC (30.0-36.0) g/dL RDW (12.1-15.1) % Plt Count (130-400) 10^3/c mm MPV (7.4-10.4) fL Neut % (Auto) % Lymph % (Auto) % [place] % (Auto) % Eos % (Auto) % Baso % (Auto) % Neut # (Auto) (1.8-7.7) 10^3/u L Lymph # (Auto) (0.8-4.8) 10^3/u L [place] # (Auto) (0.2-0.9) 10^3/u L Eos # (Auto) (0.0-0.8) 10^3/u L Baso # (Auto) (0.0-0.1) 10^3/u L Nucleated RBC % (a uto) % Nucleated RBCs # /100WBC Sodium (136-145) mmol/L Potassium (3.5-5.1) mmol/L Chloride (98-107) mmol/L Carbon Dioxide (22-29) mmol/L Anion Gap (5-19) BUN (6-20) mg/dL Creatinine (0.5-0.9) mg/dL GFR Calculation (90-130) mL/min Glucose (65-115) mg/dL Calculated Osmolal ity (285-295) mOsm/k g Calcium (8.5-10.5) mg/dL Total Bilirubin (0.15-1.2) mg/dL AST (0-32) U/L ALT (0-33) U/L Alkaline Phosphata se (35-105) IU/L Total Protein (6.6-8.7) g/dL Albumin (3.5-5.2) g/dL Globulin (1.3-4.6) g/dL Urine Color (Yellow) Urine Appearance (CLEAR) Urine pH (5-7) Ur Specific Gravit y (1.005-1.030) Urine Protein (Negative) Urine Glucose (UA) (Normal) Urine Ketones (Negative) Urine Blood (Negative) Urine Nitrate (Negative) Urine Bilirubin (Negative) Urine Urobilinogen (Negative) mg/dL Ur Leukocyte Maame ase (Negative) Urine HCG, Qual Negative (Negative) Discharge Plan Discharge Patient Disposition: Home Clinical Impression: Chronic back pain Qualifiers: Back pain location: thoracic back pain Back pain laterality: unspecified Qualified Code(s): M54.6 - Pain in thoracic spine Condition: Stable Prescriptions: No Action Jardiance 25 mg tablet 25 mg PO DAILY Qty: 90 RF: 3 metformin 500 mg tablet extended release 24 hr 500 mg PO BID Qty: 120 RF: 3 hydrocodone-acetaminophen 5-325 mg tablet 1 tab PO Q6H PRNRF: 0 gabapentin 300 mg capsule 300 mg PO DAILY RF: 0 (DME) 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 meter [Accu-Chek Kori Plus Meter] Misc See Rx Instructions .ROUTE .MEDSUPPLY Qty: 1 RF: 0 (DME) lancets [Accu-Chek Fastclix Lancet Drum] Misc See Rx Instructions .ROUTE .MEDSUPPLY Qty: 100 RF: 1 atenolol 25 mg tablet 25 mg PO BID Qty: 180 RF: 0 albuterol sulfate [Ventolin HFA] 90 mcg/actuation HFA aerosol inhaler 2 puff INHALATION Q6H PRN (Reason: Shortness Of Breath Or Wheezing) Qty: 8.5 RF: 1 (DME) Accu-Chek Kori Plus test strp Strip See Rx Instructions .ROUTE .MEDSUPPLY Qty: 100 RF: 1 citalopram 20 mg tablet 20 mg PO DAILY Qty: 90 RF: 0 lisinopril-hydrochlorothiazide 20-25 mg tablet 1 tab PO DAILY Qty: 90 RF: 0 spironolactone 25 mg tablet 25 mg PO DAILY Qty: 90 RF: 0 omeprazole 40 mg capsule,delayed release(DR/EC) 40 mg PO DAILY Qty: 90 RF: 0 montelukast [Singulair] 10 mg tablet 10 mg PO DAILY Qty: 90 RF: 1 Levemir FlexTouch U-100 Insuln 100 unit/mL (3 mL) insulin pen 125 unit SUBCUT BID RF: 0 Humulin R U-500 (Conc) Kwikpen 500 unit/mL (3 mL) insulin pen See Rx Instructions SUBCUT QAM Qty: 12 RF: 3 (DME) FreeStyle Zackery 2 Sensor Kit See Rx Instructions .ROUTE .MEDSUPPLY Qty: 2 RF: 3 (DME) FreeStyle Zackery 2 [place] Misc See Rx Instructions .ROUTE .MEDSUPPLY Qty: 1 RF: 0 Voltaren 1 % gel 4 g topical QID Qty: 100 RF: 0 Discharge Orders: Discharge ED (Routine); Ordered 03/02/21 Ordered By: Sissy Luke Referrals: Mallory Berry FNP [Primary Care Provider] - Patient Instructions: Chronic Back Pain (ED) Coding Level of Care Code ED Safety Coordinator for Chg Fwd Exam Comprehensive
[2021-03-02 01:30] LABS: Basophils # 0.1 10^3/uL (0.0-0.1); Basophils % 0.4 %; Eosinophils # 0.2 10^3/uL (0.0-0.8); Eosinophils % 1.7 %; Hematocrit 45.2 % (37.0-47.0); Lymphocytes # 1.9 10^3/uL (0.8-4.8); Lymphocytes % 15.2 %; Mean Corpuscular Hemoglobin 26.4 pg (28.0-34.0); Mean Corpuscular Volume 85.3 fL (81-99); Mean Platelet Volume 10.5 fL (7.4-10.4); Monocytes # 0.7 10^3/uL (0.2-0.9); Monocytes % 5.8 %; Neutrophils # 9.64 10^3/uL (1.8-7.7); Neutrophils % 75.4 %; Nucleated Red Blood Cells % 0 %; Platelet Count 281 10^3/cmm (130-400); Red Cell Distribution Width 14.5 % (12.1-15.1); White Blood Count 12.8 10^3/uL (4.0-10.0)
[2021-03-02] MEDS: orphenadrine 30 mg/mL Inj 2 mL 60 MG IM (01:35)
[2021-03-02] MEDS: ketorolac 60 mg/2 mL INJ IM (01:35)
[2021-03-02 01:55] LABS: Alanine Aminotransferase 75 U/L (0-33); Albumin Level 4.2 g/dL (3.5-5.2); Alkaline Phosphatase 124 IU/L (35-105); Anion Gap 16.1 (5-19); Aspartate Amino Transferase 17 U/L (0-32); Blood Urea Nitrogen 10 mg/dL (6-20); Calcium 9.3 mg/dL (8.5-10.5); Carbon Dioxide 26 mmol/L (22-29); Chloride 102 mmol/L (98-107); Globulin 3.2 g/dL (1.3-4.6); Glomerular Filtration Rate 115.1 mL/min (90-130); Glucose 149 mg/dL (65-115); Osmolality Calculated 292 mOsm/kg (285-295); Potassium 4.1 mmol/L (3.5-5.1); Sodium 140 mmol/L (136-145); Total Bilirubin 0.4 mg/dL (0.15-1.2); Total Protein 7.4 g/dL (6.6-8.7)
[2021-03-02 02:10] VITALS: BP 150/80; PULSE 85; RESP 18; TEMP 37; O2SAT 96
== END 2021-03-02 02:14 | disposition home or self-care (01) ==
PROVIDERS: Emergency Provider Physician Assistant; PCP Nurse Practitioner Family
DX: G89.29 Other chronic pain (principal); M54.6 Pain in thoracic spine; Z79.4 Long term (current) use of insulin; I10 Essential (primary) hypertension; E78.5 Hyperlipidemia, unspecified; E11.9 Type 2 diabetes mellitus without complications; F17.210 Nicotine dependence, cigarettes, uncomplicated
CPT/HCPCS: 36415; 80053; 81003; 81025; 85025; 96372; 99283; J1885; J2360

== ENCOUNTER 2021-03-31 12:12 | Emergency (ER) | payer MEDICARE, MEDICAID, SELFPAY ==
[2021-03-31 12:23] VITALS: BP 157/97; PULSE 90; RESP 19; TEMP 37.3; O2SAT 92; BMI 64.0
--- NOTE | 2021-03-31 12:36 | CTR_ITS ---
PROCEDURE INFORMATION: Exam: CT Head Without Contrast Exam date and time: 03/31/2021 12:36 PM Age: 35 years old Clinical indication: Numbness / parasthesia; Left; Patient HX: C/O L sided numbness TECHNIQUE: Imaging protocol: Computed tomography of the head without contrast. Sagittal and coronal reformatted images were created and reviewed. Radiation optimization: All CT scans at this facility use at least one of these dose optimization techniques: automated exposure control; mA and/or kV adjustment per patient size (includes targeted exams where dose is matched to clinical indication); or iterative reconstruction. COMPARISON: CT head wo con* [id number] 10/19/2019 1:37 PM RADIATION DOSE METRICS: Total DLP (mGy-cm): 855.88 FINDINGS: Limitations: Motion artifact on multiple images that can limit evaluation. Brain: No acute intracranial hemorrhage. No acute infarct. No intra-axial or extra-axial masses. Meyers-white matter differentiation is preserved. No cerebral edema. No extra-axial fluid collections. No midline shift. No evidence for Chiari 1 malformation. Cerebral ventricles: No hydrocephalus. Paranasal sinuses: Visualized paranasal sinuses are clear. Mastoid air cells: Visualized mastoid air cells are clear. Orbital cavity: No acute abnormality in the visualized orbits. 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 Soft tissues: The extracranial soft tissues are unremarkable. CT/CT head wo con* [id number] IMPRESSION: 1. Motion artifact on multiple images that can limit evaluation. Otherwise, no acute abnormality of the brain. 2. Incidental/nonacute findings are listed in the report. Radiation Dose CTDIVOL = (mGy): DLP = 855.88 (mGy-cm)
--- NOTE | 2021-03-31 12:37 | ED_ITS ---
HPI - General Adult General: Chief complaint: General Medical Stated complaint: L ARM & LEG WENT NUMB @ 2 HRS AGO Time Seen by Provider: 03/31/21 12:31 History of Present Illness: HPI narrative: This patient is well-known to me presents with the onset of tingling numbness left side of her body a couple hours ago. Patient said she just laid in bed when this started. She said left- sided face feels numb left hand left arm tingling she said stent have much fi lling the left hand but can in the foot she is able ambulate she is able to move her arm she is able to talk without difficulty. MD complaint: Numbness and tingling left side body Onset (ago): hour(s) Location: face, upper extremity and lower extremity Severity: mild Quality: other (Numbness and tingling) Associated symptoms: Reports no associated symptoms and other (Sugars run to 300 range which is normal for her.); Deny chest pain, dyspnea, headache(s), nausea, rash or vomiting Treatments prior to arrival: none Review of Systems Const: Denies: fever(s), chills or body aches Eyes: Denies: change in vision or blurry vision ENMT: Denies: throat pain or nasal congestion Card: Denies: chest pain or dyspnea on exertion Resp: Denies: dyspnea, productive cough or non-productive cough GI: Denies: abdominal pain, nausea or vomiting Musc: Denies: extremity pain Skin/Breast: Denies: rash Neuro: Reports: numbness in extremities and sensory changes; Denies: headache(s) Psych: Denies: anxiety or depression Sunday/Lymph: Denies: easy bruising [facility] ED PFSH: Medical History (Updated 03/31/21 @ 13:43 by TONYA Villeda) Amenorrhea Asthma Benign essential HTN Bilateral chronic knee pain Bilateral leg edema Dyslipidemia GERD (gastroesophageal reflux disease) 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 Morbid obesity with BMI of 60.0-69.9, adult Muscle spasms of both lower extremities Pain management contract signed Prolonged depression Spinal stenosis, thoracic region Type 2 diabetes mellitus, with long-term current use of insulin Surgical History History of cholecystectomy Family History Father CAD (coronary artery disease) Diabetes Hypertension Family/Other Cancer Mother Diabetes Hypertension Social History Smoking and tobacco status: current every day smoker cigarettes Packs smoked per day: 0.5 Alcohol intake: never Caregiver/support person: Yes Household members: spouse and family Marital status: Current occupational status: disabled Current occupation: disabled History of recent travel: No Female Reproductive History: Date of last menstrual period: 07/20/20 Physical Exam Const: COMMON NORMALS: no acute distress, average body habitus, patient oriented x3 and alert HENMT: COMMON NORMALS: normocephalic HEAD & SCALP: normal to inspection and normocephalic FACE & SINUS: normal facial exam Eye: COMMON NORMALS: conjunctivae normal GENERAL EYE: appearance normal, both eyes and all related structures CONJUNCTIVA: Yes conjunctivae normal Neck/C-Spine: COMMON NORMALS: no meningeal signs and no JVD Chest: COMMONS NORMALS: normal inspection of the chest Resp: COMMON NORMALS: normal respiratory effort and clear to auscultation bilaterally AUSCULTATION: clear to auscultation bilaterally Cardio: COMMON NORMALS: no JVD, regular rate and regular rhythm RATE: regular rate RHYTHM: regular rhythm GI: COMMON NORMALS: Normal to inspection, nondistended, normoactive bowel sounds present Extremity: COMMON NORMALS: normal to inspection and full ROM Neuro: COMMON NORMALS: patient oriented x3, moves all extremities and no focal motor deficits SENSORIUM/ORIENTATION: Yes alert MENINGEAL SIGNS: Yes no meningeal signs COORDINATION/BALANCE: [id number] test normal SPEECH: speech normal GAIT: Yes Normal gait present SENSORY EXAM: Yes extremities (Decreased sensation left hand but has full movement) MONOFILAMENT EXAM PERFORMED: No MOTOR EXAM: 5/5 motor strength present throughout COORDINATION: [id number] test normal Course Vital Signs: Vital signs: Vital Signs Temperature 99.1 F 03/31/21 12:23 Pulse Rate 85 03/31/21 13:42 Respiratory Rate 18 03/31/21 13:42 Blood Pressure 153/72 03/31/21 13:42 Pulse Oximetry 96 03/31/21 13:42 MDM - General Adult MDM Narrative: Medical decision making narrative: Patient CT was negative for concerning problems. Labs consistent with previous visits. Blood sugar is high which is her normal range that she runs in. Sodium slightly low. Patient able to move all extremities able ambulate. Still complains about tingling in her left hand. Encourage her to follow-up with Tammy Berry this coming week to see if they want to pursue further studies. Emergency return here if worsening symptoms. Lab Data: Labs: Lab Results 03/31/21 03/31/21 Range/Units 12:50 12:50 WBC 11.5 H (4.0-10.0) 10^3/ uL RBC 5.35 H (4.1-5.3) 10^6/u L Hgb 14.2 (11.5-15.3) g/dL Hct 44.8 (37.0-47.0) % MCV 83.7 (81-99) fL MCH 26.5 L (28.0-34.0) pg MCHC 31.7 (30.0-36.0) g/dL RDW 14.3 (12.1-15.1) % Plt Count 270 (130-400) 10^3/c mm MPV 11.1 H (7.4-10.4) fL Neut % (Auto) 71.9 % Lymph % (Auto) 18.3 % [place] % (Auto) 6.3 % Eos % (Auto) 1.7 % Baso % (Auto) 0.5 % Neut # (Auto) 8.23 H (1.8-7.7) 10^3/u L Lymph # (Auto) 2.1 (0.8-4.8) 10^3/u L [place] # (Auto) 0.7 (0.2-0.9) 10^3/u L Eos # (Auto) 0.2 (0.0-0.8) 10^3/u L Baso # (Auto) 0.1 (0.0-0.1) 10^3/u L Nucleated RBC % (a uto) 0 % Nucleated RBCs # 0.0 /100WBC Sodium 132 L (136-145) mmol/L Potassium 4.3 (3.5-5.1) mmol/L Chloride 97 L (98-107) mmol/L Carbon Dioxide 23 (22-29) mmol/L Anion Gap 16.3 (5-19) BUN 17 (6-20) mg/dL Creatinine 0.6 (0.5-0.9) mg/dL GFR Calculation 115.1 (90-130) mL/min Glucose 319 H (65-115) mg/dL Calculated Osmolal ity 288 (285-295) mOsm/k g Calcium 8.4 L (8.5-10.5) mg/dL Discharge Plan Discharge Patient Disposition: Home Clinical Impression: Numbness and tingling of left arm and leg, Hyperglycemia Condition: Stable Prescriptions: No Action Jardiance 25 mg tablet 25 mg PO DAILY Qty: 90 RF: 3 metformin 500 mg tablet extended release 24 hr 500 mg PO BID Qty: 120 RF: 3 gabapentin 300 mg capsule 300 mg PO DAILY RF: 0 (DME) 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 meter [Accu-Chek Kori Plus Meter] Misc See Rx Instructions .ROUTE .MEDSUPPLY Qty: 1 RF: 0 (DME) lancets [Accu-Chek Fastclix Lancet Drum] Misc See Rx Instructions .ROUTE .MEDSUPPLY Qty: 100 RF: 1 atenolol 25 mg tablet 25 mg PO BID Qty: 180 RF: 0 albuterol sulfate [Ventolin HFA] 90 mcg/actuation HFA aerosol inhaler 2 puff INHALATION Q6H PRN (Reason: Shortness Of Breath Or Wheezing) Qty: 8.5 RF: 1 (DME) Accu-Chek Kori Plus test strp Strip See Rx Instructions .ROUTE .MEDSUPPLY Qty: 100 RF: 1 citalopram 20 mg tablet 20 mg PO DAILY Qty: 90 RF: 0 lisinopril-hydrochlorothiazide 20-25 mg tablet 1 tab PO DAILY Qty: 90 RF: 0 spironolactone 25 mg tablet 25 mg PO DAILY Qty: 90 RF: 0 omeprazole 40 mg capsule,delayed release(DR/EC) 40 mg PO DAILY Qty: 90 RF: 0 montelukast [Singulair] 10 mg tablet 10 mg PO DAILY Qty: 90 RF: 1 Levemir FlexTouch U-100 Insuln 100 unit/mL (3 mL) insulin pen 125 unit SUBCUT BID RF: 0 Humulin R U-500 (Conc) Kwikpen 500 unit/mL (3 mL) insulin pen See Rx Instructions SUBCUT QAM Qty: 12 RF: 3 (DME) FreeStyle Zackery 2 Sensor Kit See Rx Instructions .ROUTE .MEDSUPPLY Qty: 2 RF: 3 (DME) FreeStyle Zackery 2 [place] Misc See Rx Instructions .ROUTE .MEDSUPPLY Qty: 1 RF: 0 Voltaren 1 % gel 4 g topical QID Qty: 100 RF: 0 Discharge Orders: Discharge ED (Routine); Ordered 03/31/21 Ordered By: Jakub Bianchi Referrals: Mallory Berry FNP [Primary Care Provider] - Activity Restrictions/Additional Instructions: Follow-up with TONYA Martinez in the next few days. Can return here if worsening symptoms. Try to keep blood sugars under good control. Follow a diabetic diet. Coding Level of Care Code ED Jtac for Leonela Fwtish Exam Comprehensive
[2021-03-31 13:07] LABS: Basophils # 0.1 10^3/uL (0.0-0.1); Basophils % 0.5 %; Eosinophils # 0.2 10^3/uL (0.0-0.8); Eosinophils % 1.7 %; Hematocrit 44.8 % (37.0-47.0); Hemoglobin 14.2 g/dL (11.5-15.3); Lymphocytes # 2.1 10^3/uL (0.8-4.8); Lymphocytes % 18.3 %; Mean Corpuscular HGB Conc 31.7 g/dL (30.0-36.0); Mean Corpuscular Hemoglobin 26.5 pg (28.0-34.0); Mean Corpuscular Volume 83.7 fL (81-99); Mean Platelet Volume 11.1 fL (7.4-10.4); Monocytes # 0.7 10^3/uL (0.2-0.9); Monocytes % 6.3 %; Neutrophils # 8.23 10^3/uL (1.8-7.7); Neutrophils % 71.9 %; Nucleated Red Blood Cells % 0 %; Platelet Count 270 10^3/cmm (130-400); Red Blood Count 5.35 10^6/uL (4.1-5.3); Red Cell Distribution Width 14.3 % (12.1-15.1); White Blood Count 11.5 10^3/uL (4.0-10.0)
[2021-03-31 13:09] VITALS: BP 141/88; PULSE 85; RESP 18; O2SAT 95
--- NOTE | 2021-03-31 13:11 | PC.NURSE ---
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
[2021-03-31 13:33] LABS: Anion Gap 16.3 (5-19); Blood Urea Nitrogen 17 mg/dL (6-20); Calcium 8.4 mg/dL (8.5-10.5); Carbon Dioxide 23 mmol/L (22-29); Chloride 97 mmol/L (98-107); Glomerular Filtration Rate 115.1 mL/min (90-130); Glucose 319 mg/dL (65-115); Osmolality Calculated 288 mOsm/kg (285-295); Potassium 4.3 mmol/L (3.5-5.1); Sodium 132 mmol/L (136-145)
[2021-03-31 13:42] VITALS: BP 153/72; PULSE 85; RESP 18; O2SAT 96
== END 2021-03-31 13:54 | disposition home or self-care (01) ==
PROVIDERS: Emergency Provider Nurse Practitioner Family; PCP Nurse Practitioner Family
DX: E11.65 Type 2 diabetes mellitus with hyperglycemia (principal); J45.909 Unspecified asthma, uncomplicated; I10 Essential (primary) hypertension; E78.5 Hyperlipidemia, unspecified; E66.01 Morbid (severe) obesity due to excess calories; Z68.44 Body mass index [BMI] 60.0-69.9, adult; Z79.4 Long term (current) use of insulin
CPT/HCPCS: 70450; 80048; 85025; 99283

== ENCOUNTER 2021-04-13 00:47 | Emergency (ER) | payer MEDICARE, MEDICAID, SELFPAY ==
[2021-04-13 01:09] VITALS: BP 176/103; PULSE 100; RESP 20; TEMP 36.2; O2SAT 96; BMI 65.6
[2021-04-13 01:36] LABS: Add Urine Culture? No; Add Urine Microscopic? YES; Bacteria Urine 2+ /hpf; Bilirubin Urine 1+ (Negative); Blood Urine Neg (Negative); Glucose Urine UA 4+ (Normal); Ketones Urine 1+ (Negative); Leukocyte Esterase Urine Negative (Negative); Nitrate Urine Negative (Negative); Protein Urine Neg (Negative); RBC Urine 0-4 /hpf (0-2); Urine Appearance SL Hazy (CLEAR); Urine Color Yellow (Yellow); Urobilinogen Urine 4 mg/dL (Negative); WBC Urine 0-4 /hpf (0-5); pH Urine 5 (5-7)
--- NOTE | 2021-04-13 04:08 | ED_ITS ---
HPI - Abdominal Pain General: Chief Complaint: Abdominal Pain Stated Complaint: Abd Pain Time Seen by Provider: 04/13/21 04:02 Source: patient Mode of arrival: ambulatory Limitations: no limitations History of Present Illness: HPI narrative: 35-year-old female states that she fell out of bed tonight landed on a metal box with her left abdomen. States it was a 1 foot fall. States she is got a contusion to her abdomen the pain she rates a 2 out of 10. Denies any other injuries. Patient is amatory. Denies hitting her head. She has had no vomiting or diarrhea. Associated Symptoms: Denies chills, dysuria and fever(s) Related Data: Date of Last Menstrual Period: 07/20/20 Review of Systems Const: Denies: fever(s), chills, body aches or change in appetite Eyes: Denies: blurry vision or eye discomfort ENMT: Denies: throat pain or dental pain Card: Denies: chest pain Resp: Denies: dyspnea GI: Reports: abdominal pain : Denies: dysuria Musc: Denies: neck pain or back pain Skin/Breast: Denies: rash Neuro: Denies: headache(s) Psych: Denies: depression Sunday/Lymph: Denies: easy bruising All/Imm: Denies: urticaria PFSH ED PFSH: Medical History (Updated 04/13/21 @ 04:10 by Kat Yang MD) Amenorrhea Asthma Benign essential HTN Bilateral chronic knee pain Bilateral leg edema Dyslipidemia GERD (gastroesophageal reflux disease) 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 Morbid obesity with BMI of 60.0-69.9, adult Muscle spasms of both lower extremities Pain management contract signed Prolonged depression Spinal stenosis, thoracic region Type 2 diabetes mellitus, with long-term current use of insulin Surgical History History of cholecystectomy Family History Father CAD (coronary artery disease) Diabetes Hypertension Family/Other Cancer Mother Diabetes Hypertension Social History Smoking and tobacco status: current every day smoker cigarettes Packs smoked per day: 0.5 Alcohol intake: never Caregiver/support person: Yes Household members: spouse and family Marital status: Current occupational status: disabled Current occupation: disabled History of recent travel: No Female Reproductive History: Date of last menstrual period: 07/20/20 Physical Exam Const: COMMON NORMALS: no acute distress, patient oriented x3 and healthy appearing HENMT: COMMON NORMALS: normocephalic and atraumatic HEAD & SCALP: normocephalic and atraumatic Eye: COMMON NORMALS: Equal, round and reactive pupils present and EOMs intact bilaterally PUPIL: Yes Equal, round and reactive pupils present Neck/C-Spine: COMMON NORMALS: full ROM and supple Chest: COMMONS NORMALS: normal inspection of the chest and normal palpation of entire chest wall Resp: COMMON NORMALS: normal respiratory effort, No retractions, No use of accessory muscles and clear to auscultation bilaterally AUSCULTATION: clear to auscultation bilaterally Cardio: COMMON NORMALS: regular rate, regular rhythm and No murmurs present (Cardio) RATE: regular rate RHYTHM: regular rhythm GI: COMMON NORMALS: Soft to palpation and no masses PALPATION: Yes Soft to palpation OTHER: Slight contusion to left abdomen with minimal tenderness Extremity: COMMON NORMALS: normal to inspection and full ROM Neuro: COMMON NORMALS: patient oriented x3, moves all extremities and no focal motor deficits Psych: COMMON NORMALS: mental status grossly normal, Normal thought process present and cooperative THOUGHT PROCESS: Normal thought process present Skin: COMMON NORMALS: no rashes or lesions noted and no wounds GENERAL SKIN EXAM: no rashes or lesions noted Course Vital Signs: Vital signs: Vital Signs Temperature 97.1 F L 04/13/21 01:09 Pulse Rate 100 04/13/21 01:09 Respiratory Rate 20 H 04/13/21 01:09 Blood Pressure 176/103 04/13/21 01:09 Pulse Oximetry 96 04/13/21 01:09 MDM - Abdominal Pain MDM Narrative: Medical decision making narrative: Patient presents here with abdominal wall contusion from a fall. She has no signs of intra-abdominal injuries. She is stable for discharge is to follow-up with PCP and return if worsening. Lab Data: Labs: Lab Results 04/13/21 Range/Units 01:20 Urine Color Yellow (Yellow) Urine Appearance Sl hazy (CLEAR) Urine pH 5 (5-7) Ur Specific Gravit y 1.020 (1.005-1.030) Urine Protein Neg (Negative) Urine Glucose (UA) 4+ H (Normal) Urine Ketones 1+ H (Negative) Urine Blood Neg (Negative) Urine Nitrate Negative (Negative) Urine Bilirubin 1+ H (Negative) Urine Urobilinogen 4 H (Negative) mg/dL Ur Leukocyte Maame ase Negative (Negative) Urine RBC 0-4 H (0-2) /hpf Urine WBC 0-4 H (0-5) /hpf Ur Squamous Epith Cells 10-15 H (0-5) /hpf Amorphous Sediment Not Reportable Urine Bacteria 2+ H (NONE) /hpf Discharge Plan Discharge Patient Disposition: Home Clinical Impression: Abdominal wall contusion Qualifiers: Encounter type: initial encounter Qualified Code(s): S30.1XXA - Contusion of abdominal wall, initial encounter Condition: Stable Prescriptions: New EC-Naprosyn 500 mg tablet,delayed release (DR/EC) 500 mg PO BID PRN (Reason: pain) Qty: 20 RF: 0 No Action Jardiance 25 mg tablet 25 mg PO DAILY Qty: 90 RF: 3 metformin 500 mg tablet extended release 24 hr 500 mg PO BID Qty: 120 RF: 3 gabapentin 300 mg capsule 300 mg PO DAILY RF: 0 (DME) 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 meter [Accu-Chek Kori Plus Meter] Misc See Rx Instructions .ROUTE .MEDSUPPLY Qty: 1 RF: 0 (DME) lancets [Accu-Chek Fastclix Lancet Drum] Misc See Rx Instructions .ROUTE .MEDSUPPLY Qty: 100 RF: 1 atenolol 25 mg tablet 25 mg PO BID Qty: 180 RF: 0 albuterol sulfate [Ventolin HFA] 90 mcg/actuation HFA aerosol inhaler 2 puff INHALATION Q6H PRN (Reason: Shortness Of Breath Or Wheezing) Qty: 8.5 RF: 1 (DME) Accu-Chek Kori Plus test strp Strip See Rx Instructions .ROUTE .MEDSUPPLY Qty: 100 RF: 1 citalopram 20 mg tablet 20 mg PO DAILY Qty: 90 RF: 0 lisinopril-hydrochlorothiazide 20-25 mg tablet 1 tab PO DAILY Qty: 90 RF: 0 spironolactone 25 mg tablet 25 mg PO DAILY Qty: 90 RF: 0 omeprazole 40 mg capsule,delayed release(DR/EC) 40 mg PO DAILY Qty: 90 RF: 0 montelukast [Singulair] 10 mg tablet 10 mg PO DAILY Qty: 90 RF: 1 Levemir FlexTouch U-100 Insuln 100 unit/mL (3 mL) insulin pen 125 unit SUBCUT BID RF: 0 Humulin R U-500 (Conc) Kwikpen 500 unit/mL (3 mL) insulin pen See Rx Instructions SUBCUT QAM Qty: 12 RF: 3 (DME) FreeStyle Zackery 2 Sensor Kit See Rx Instructions .ROUTE .MEDSUPPLY Qty: 2 RF: 3 (DME) FreeStyle Zackery 2 [place] Misc See Rx Instructions .ROUTE .MEDSUPPLY Qty: 1 RF: 0 Voltaren 1 % gel 4 g topical QID Qty: 100 RF: 0 Discharge Orders: Discharge ED (Routine); Ordered 04/13/21 Ordered By: Kat Yang Referrals: Mallory Berry FNP [Primary Care Provider] - Discharge Diet: Advance as tolerated Discharge Activity: Resume usual activity Patient Instructions: Contusion in Adults (ED) Coding Level of Care Code ED Rf Design Engineer for Leonela Escobedo
[2021-04-13] MEDS: HYDROcodone-acetaminophen 5-325 mg Tablet 1 TAB PO (04:17)
[2021-04-13 04:20] VITALS: BP 149/100; PULSE 92; O2SAT 96
[2021-04-13 04:27] VITALS: PULSE 93; RESP 18; O2SAT 98
== END 2021-04-13 04:30 | disposition home or self-care (01) ==
PROVIDERS: Emergency Provider Emergency Medicine; PCP Nurse Practitioner Family
DX: S30.1XXA Contusion of abdominal wall, initial encounter (principal); Z79.4 Long term (current) use of insulin; I10 Essential (primary) hypertension; E78.5 Hyperlipidemia, unspecified; E11.9 Type 2 diabetes mellitus without complications; F17.210 Nicotine dependence, cigarettes, uncomplicated; W06.XXXA Fall from bed, initial encounter
CPT/HCPCS: 81001; 99283

== ENCOUNTER 2021-05-01 06:00 | Outpatient (CLI) | payer MEDICARE, MEDICAID, SELFPAY | END 2021-05-01 06:01 | disposition home or self-care (01) | LOC: RADSHAW 01-25 14:34 | PROVIDERS: PCP Nurse Practitioner Family; Visit Provider Nurse Practitioner Family | DX: E11.40 Type 2 diabetes mellitus with diabetic neuropathy, unspecified (principal); K76.0 Fatty (change of) liver, not elsewhere classified; E66.01 Morbid (severe) obesity due to excess calories; Z68.44 Body mass index [BMI] 60.0-69.9, adult; F17.210 Nicotine dependence, cigarettes, uncomplicated; Z79.4 Long term (current) use of insulin | CPT/HCPCS: 99214 ==

== ENCOUNTER → 2021-05-02 15:01 | Outpatient (BNVA) | payer MEDICARE, MEDICAID, SELFPAY | PROVIDERS: PCP Nurse Practitioner Family; Visit Provider Specialist | DX: G56.20 Lesion of ulnar nerve, unspecified upper limb (principal); G56.03 Carpal tunnel syndrome, bilateral upper limbs | CPT/HCPCS: 73110 ==

== ENCOUNTER 2021-05-17 16:05 | Emergency (ER) | payer MEDICARE, MEDICAID, SELFPAY ==
[2021-05-17 16:17] VITALS: BP 140/78; PULSE 98; RESP 18; TEMP 36.7; O2SAT 94; BMI 62.4
--- NOTE | 2021-05-17 16:46 | XRR_ITS ---
PROCEDURE INFORMATION: Exam: XR Lumbosacral Spine Exam date and time: 05/17/2021 4:46 PM Age: 35 years old Clinical indication: Injury or trauma; Fall; Blunt trauma (contusions or hematomas); Additional info: Fall. Back pain TECHNIQUE: Imaging protocol: XR of the lumbosacral spine. Views: 2 or 3 views. COMPARISON: CR XR lumbar spine 2-3V* [id number] 02/19/2020 6:01 AM FINDINGS: Bones/joints: Vertebral body heights are preserved. No compression fractures are noted. Vertebral alignment is physiologic. Mild loss of height of the L5-S1 disc. Intervertebral disc heights are otherwise preserved. Facet joints are intact. Soft tissues: The soft tissues appear unremarkable. XR/XR lumbar spine 2-3V* [id number] IMPRESSION: 1. Mild degenerative disc narrowing at L5-S1. 2. The examination is otherwise unremarkable. 3. There is no interval change from the prior examination.
--- NOTE | 2021-05-17 16:47 | W.ED.FALL ---
Documented by User: [email or web address] Boo 05/22/21 07:08 HPI - Fall General: Chief Complaint: Fall Stated Complaint: Back Pain from Fall Time Seen by Provider: 05/17/21 16:31 Source: patient Mode of arrival: ambulatory Limitations: no limitations History of Present Illness: HPI Narrative: Patient is a 35-year-old female presents to ED today with complaint of lower back pain following a fall. Patient tells me earlier this morning she tripped over one of her dogs and fell onto her buttocks and since that time has noticed lower back pain. Patient states she suffers from chronic back pain. She has no other complaints or injuries related to the fall. She is not complaining of numbness, tingling, loss of sensation to her lower extremities. Patient has been ambulatory since the event. MD complaint: fall Onset (ago): hour(s) Fall from: standing Fall witnessed: no Place fall occurred: home Loss of consciousness: None Prolonged down time: no Symptoms prior to fall: none Context: tripped/slipped Location of injury: back Associated symptoms-after fall: Reports no associated symptoms; Denies abdominal pain, chest pain, difficulty walking, headache(s), hematuria or neck pain Review of Systems Eyes: Denies: change in vision Card: Denies: chest pain Resp: Denies: dyspnea GI: Denies: abdominal pain, nausea or vomiting : Denies: flank pain or hematuria Musc: Reports: back pain; Denies: neck pain, extremity pain, extremity swelling, joint pain or joint swelling Neuro: Denies: headache(s), numbness in extremities, weakness in extremities, sensory changes or difficulty walking [facility] ED PFSH: Medical History (Updated 05/17/21 @ 17:30 by TONYA Best) Amenorrhea Asthma Benign essential HTN Bilateral chronic knee pain Bilateral leg edema Dyslipidemia 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 Morbid obesity with BMI of 60.0-69.9, adult Muscle spasms of both lower extremities Pain management contract signed Prolonged depression Spinal stenosis, thoracic region Type 2 diabetes mellitus, with long-term current use of insulin Surgical History History of cholecystectomy Family History Father CAD (coronary artery disease) Diabetes Hypertension Family/Other Cancer Mother Diabetes Hypertension Social History Smoking and tobacco status: current every day smoker (1 pack per day ) cigarettes Packs smoked per day: 0.5 Alcohol intake: never Caregiver/support person: Yes Household members: spouse and family Marital status: Current occupational status: disabled Current occupation: disabled History of recent travel: No Female Reproductive History: Date of last menstrual period: 05/07/21 Physical Exam Const: COMMON NORMALS: no acute distress, patient oriented x3, no limitations and alert GENERAL APPEARANCE: cooperative NUTRITIONAL APPEARANCE: obese morbidly obese (BMI > 60) ORIENTATION/CONSCIOUSNESS: Yes awake, Yes oriented to person, Yes oriented to place and Yes oriented to time HENMT: COMMON NORMALS: normocephalic and atraumatic HEAD & SCALP: normocephalic and atraumatic Neck/C-Spine: COMMON NORMALS: full ROM CERVICAL SPINE: No pain with cervical ROM and No Cervical spine tenderness Back/Pelvis: THORACIC SPINE/UPPER BACK: Yes normal to inspection, Yes thoracic ROM normal, No pain with ROM, No thoracic spinal tenderness and No paraspinal muscle tenderness LUMBAR SPINE/LOWER BACK: Yes pain with ROM, Yes lumbar spinal tenderness (upper L spine), Yes paraspinal muscle tenderness Lumbar paraspinal muscle tenderness: bilateral and No paraspinal muscle spasm PELVIS: Yes buttocks normal and Yes Other pelvic findings (normal) SACROILIAC JOINTS: Yes SI joints normal SACRUM: other (normal) COCCYX: Other pelvic findings (normal) Extremity: COMMON NORMALS: normal to inspection and full ROM GENERAL: Yes normal exam except as noted Neuro: COMMON NORMALS: patient oriented x3 SENSORIUM/ORIENTATION: Yes alert, Yes oriented to person, Yes oriented to place and Yes oriented to time Course Vital Signs: Vital signs: Vital Signs Temperature 98.0 F 05/17/21 16:17 Pulse Rate 98 05/17/21 16:17 Respiratory Rate 18 05/17/21 16:17 Blood Pressure 140/78 05/17/21 16:17 Pulse Oximetry 94 05/17/21 16:17 MDM - Fall MDM Narrative: Medical decision making narrative: Care being transferred to TONYA Hudson at shift change pending XRs. Discharge Plan Discharge Patient Disposition: Home Clinical Impression: Fall Qualifiers: Encounter type: initial encounter Qualified Code(s): W19.XXXA - Unspecified fall, initial encounter Low back pain Qualifiers: Chronicity: acute Back pain laterality: left Sciatica presence: without sciatica Qualified Code(s): M54.5 - Low back pain Condition: Stable Prescriptions: New hydrocodone-acetaminophen 5-325 mg tablet 1 tab PO Q8H PRN (Reason: pain (scale score 7-10)) Qty: 7 RF: 0 No Action Jardiance 25 mg tablet 25 mg PO DAILY Qty: 90 RF: 3 metformin 500 mg tablet extended release 24 hr 500 mg PO BID Qty: 120 RF: 3 mupirocin 2 % ointment 1 applic topical BID Qty: 15 RF: 0 gabapentin 300 mg capsule 300 mg PO DAILY RF: 0 (DME) 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 meter [Accu-Chek Kori Plus Meter] Misc See Rx Instructions .ROUTE .MEDSUPPLY Qty: 1 RF: 0 (DME) lancets [Accu-Chek Fastclix Lancet Drum] Misc See Rx Instructions .ROUTE .MEDSUPPLY Qty: 100 RF: 1 atenolol 25 mg tablet 25 mg PO BID Qty: 180 RF: 0 albuterol sulfate [Ventolin HFA] 90 mcg/actuation HFA aerosol inhaler 2 puff INHALATION Q6H PRN (Reason: Shortness Of Breath Or Wheezing) Qty: 8.5 RF: 1 (DME) Accu-Chek Kori Plus test strp Strip See Rx Instructions .ROUTE .MEDSUPPLY Qty: 100 RF: 1 citalopram 20 mg tablet 20 mg PO DAILY Qty: 90 RF: 0 lisinopril-hydrochlorothiazide 20-25 mg tablet 1 tab PO DAILY Qty: 90 RF: 0 spironolactone 25 mg tablet 25 mg PO DAILY Qty: 90 RF: 0 omeprazole 40 mg capsule,delayed release(DR/EC) 40 mg PO DAILY Qty: 90 RF: 0 montelukast [Singulair] 10 mg tablet 10 mg PO DAILY Qty: 90 RF: 1 Humulin R U-500 (Conc) Kwikpen 500 unit/mL (3 mL) insulin pen See Rx Instructions SUBCUT QAM Qty: 12 RF: 3 (DME) FreeStyle Zackery 2 Sensor Kit See Rx Instructions .ROUTE .MEDSUPPLY Qty: 2 RF: 3 (DME) FreeStyle Zackery 2 [place] Misc See Rx Instructions .ROUTE .MEDSUPPLY Qty: 1 RF: 0 Voltaren 1 % gel 4 g topical QID Qty: 100 RF: 0 Discharge Orders: Discharge ED (Routine); Ordered 05/17/21 Ordered By: Herb Nathan Referrals: Mallory Berry FNP [Primary Care Provider] - Discharge Diet: Usual diet Discharge Activity: Increase activity as tolerated Patient Instructions: Back Pain (ED), Opioid Safety Activity Restrictions/Additional Instructions: Activity as tolerated. Ambulate as much as possible. Drink plenty of water with medication. Use acetaminophen and ibuprofen to control the pain. Follow the recommendations by the bottles instructions. Use hydrocodone for breakthrough pain only. Follow-up with primary care for further instruction and recommendations. Return to the emergency department for new concerns. 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 Morbid obesity with BMI of 60.0-69.9, adult Muscle spasms of both lower extremities Pain management contract signed Prolonged depression Spinal stenosis, thoracic region Type 2 diabetes mellitus, with long-term current use of insulin Surgical History History of cholecystectomy Family History Father CAD (coronary artery disease) Diabetes Hypertension Family/Other Cancer Mother Diabetes Hypertension Social History Smoking and tobacco status: current every day smoker (1 pack per day ) cigarettes Packs smoked per day: 0.5 Alcohol intake: never Caregiver/support person: Yes Household members: spouse and family Marital status: Current occupational status: disabled Current occupation: disabled History of recent travel: No Course ED course: 1700, assumed care of patient. We are awaiting x-rays to evaluate her low back pain secondary to her fall from this morning. Vital Signs: Vital signs: Vital Signs Temperature 98.0 F 05/17/21 16:17 Pulse Rate 98 05/17/21 16:17 Respiratory Rate 18 05/17/21 16:17 Blood Pressure 140/78 05/17/21 16:17 Pulse Oximetry 94 05/17/21 16:17 MDM - Fall MDM Narrative: Medical decision making narrative: Patient came in for low back pain after suffering a fall this morning. Patient use some Tylenol and ibuprofen [id number] with minimal relief. On exam patient has tenderness in the left paraspinous muscles of the lumbar spine. There is some midline tenderness to on palpation. Respirations are even lungs are clear to auscultation. Vital signs are normal. Differential diagnosis includes compression fracture, intervertebral disc disease, facet arthropathy. X-ray noted no obvious compression fractures. Reviewed exam with patient with recommendations for treatment and follow-up. Patient reported understanding of care plan and need for follow-up or return to the ER. Discharge Plan Discharge Patient Disposition: Home Clinical Impression: Fall Qualifiers: Encounter type: initial encounter Qualified Code(s): W19.XXXA - Unspecified fall, initial encounter Low back pain Qualifiers: Chronicity: acute Back pain laterality: left Sciatica presence: without sciatica Qualified Code(s): M54.5 - Low back pain Condition: Stable Prescriptions: New hydrocodone-acetaminophen 5-325 mg tablet 1 tab PO Q8H PRN (Reason: pain (scale score 7-10)) Qty: 7 RF: 0 No Action Jardiance 25 mg tablet 25 mg PO DAILY Qty: 90 RF: 3 metformin 500 mg tablet extended release 24 hr 500 mg PO BID Qty: 120 RF: 3 mupirocin 2 % ointment 1 applic topical BID Qty: 15 RF: 0 gabapentin 300 mg capsule 300 mg PO DAILY RF: 0 (DME) 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 meter [Accu-Chek Kori Plus Meter] Misc See Rx Instructions .ROUTE .MEDSUPPLY Qty: 1 RF: 0 (DME) lancets [Accu-Chek Fastclix Lancet Drum] Misc See Rx Instructions .ROUTE .MEDSUPPLY Qty: 100 RF: 1 atenolol 25 mg tablet 25 mg PO BID Qty: 180 RF: 0 albuterol sulfate [Ventolin HFA] 90 mcg/actuation HFA aerosol inhaler 2 puff INHALATION Q6H PRN (Reason: Shortness Of Breath Or Wheezing) Qty: 8.5 RF: 1 (DME) Accu-Chek Kori Plus test strp Strip See Rx Instructions .ROUTE .MEDSUPPLY Qty: 100 RF: 1 citalopram 20 mg tablet 20 mg PO DAILY Qty: 90 RF: 0 lisinopril-hydrochlorothiazide 20-25 mg tablet 1 tab PO DAILY Qty: 90 RF: 0 spironolactone 25 mg tablet 25 mg PO DAILY Qty: 90 RF: 0 omeprazole 40 mg capsule,delayed release(DR/EC) 40 mg PO DAILY Qty: 90 RF: 0 montelukast [Singulair] 10 mg tablet 10 mg PO DAILY Qty: 90 RF: 1 Humulin R U-500 (Conc) Kwikpen 500 unit/mL (3 mL) insulin pen See Rx Instructions SUBCUT QAM Qty: 12 RF: 3 (DME) FreeStyle Zackery 2 Sensor Kit See Rx Instructions .ROUTE .MEDSUPPLY Qty: 2 RF: 3 (DME) FreeStyle Zackery 2 [place] Misc See Rx Instructions .ROUTE .MEDSUPPLY Qty: 1 RF: 0 Voltaren 1 % gel 4 g topical QID Qty: 100 RF: 0 Discharge Orders: Discharge ED (Routine); Ordered 05/17/21 Ordered By: Herb Nathan Referrals: Mallory Berry FNP [Primary Care Provider] - Discharge Diet: Usual diet Discharge Activity: Increase activity as tolerated Patient Instructions: Back Pain (ED), Opioid Safety Activity Restrictions/Additional Instructions: Activity as tolerated. Ambulate as much as possible. Drink plenty of water with medication. Use acetaminophen and ibuprofen to control the pain. Follow the recommendations by the bottles instructions. Use hydrocodone for breakthrough pain only. Follow-up with primary care for further instruction and recommendations. Return to the emergency department for new concerns. Coding Level of Care Code ED Senior Instrumentation Engineer for Leonela Escobedo Exam Detailed
[2021-05-17] MEDS: HYDROcodone-acetaminophen 5-325 mg Tablet 1 TAB PO (17:56)
== END 2021-05-17 17:57 | disposition home or self-care (01) ==
PROVIDERS: Emergency Provider Nurse Practitioner Family; PCP Nurse Practitioner Family
DX: M54.5 Low back pain (principal); Z79.4 Long term (current) use of insulin; I10 Essential (primary) hypertension; E78.5 Hyperlipidemia, unspecified; E11.9 Type 2 diabetes mellitus without complications; F17.210 Nicotine dependence, cigarettes, uncomplicated
CPT/HCPCS: 72100; 99283

== ENCOUNTER 2021-06-13 22:45 | Emergency (ER) | payer MEDICARE, MEDICAID, SELFPAY ==
[2021-06-13 22:53] VITALS: BP 177/78; PULSE 98; RESP 24; TEMP 36.7; O2SAT 95; BMI 64.4
--- NOTE | 2021-06-13 22:54 | W.ED.HA ---
HPI - Headache General: Chief Complaint: Head Injury Stated Complaint: hit in the head has headache Time Seen by Provider: 06/13/21 22:53 History of Present Illness: HPI Narrative: 35-year-old female comes in today with headache. Patient reports she was around her mother's house with her mother's boyfriend was breaking up some wood and a piece of wood broke off striking her in the back of the head. Since then patient has had a headache that she has not been able to control. Patient appears well. Patient appears in mild to moderate pain. No obvious injury is noted. 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 Morbid obesity with BMI of 60.0-69.9, adult Muscle spasms of both lower extremities Pain management contract signed Prolonged depression Spinal stenosis, thoracic region Type 2 diabetes mellitus, with long-term current use of insulin Surgical History History of cholecystectomy Family History Father CAD (coronary artery disease) Diabetes Hypertension Family/Other Cancer Mother Diabetes Hypertension Social History Smoking and tobacco status: current every day smoker (1 pack per day ) cigarettes Packs smoked per day: 0.5 Alcohol intake: never Caregiver/support person: Yes Household members: spouse and family Marital status: Current occupational status: disabled Current occupation: disabled History of recent travel: No Female Reproductive History: Date of last menstrual period: 05/07/21 Physical Exam Const: COMMON NORMALS: no acute distress and patient oriented x3 GENERAL APPEARANCE: cooperative HENMT: COMMON NORMALS: normocephalic, TM's normal bilaterally and Normal external nose present HEAD & SCALP: normal to inspection and normocephalic NOSE: Normal external nose present TYMPANIC MEMBRANE: TM's normal bilaterally MOUTH: Normal oral and palatal mucosa present THROAT: posterior oropharynx normal Eye: GENERAL EYE: appearance normal, both eyes and all related structures Neck/C-Spine: COMMON NORMALS: full ROM Lymph: LYMPHATIC: no lymphadenopathy noted Chest: COMMONS NORMALS: normal inspection of the chest Resp: COMMON NORMALS: normal respiratory effort EFFORT & INSPECTION: Yes able to speak in complete sentences Cardio: COMMON NORMALS: regular rate and regular rhythm RATE: regular rate RHYTHM: regular rhythm GI: COMMON NORMALS: non-tender Extremity: COMMON NORMALS: normal to inspection Neuro: COMMON NORMALS: patient oriented x3 and moves all extremities Psych: COMMON NORMALS: mental status grossly normal and cooperative Skin: NARRATIVE SKIN EXAM: No hematoma, abrasion, or ecchymosis is noted to the scalp Course ED course: 0003, patient reports improvement in headache but continues to have some pain at the site of scalp tenderness. We will give her a dose of ketorolac IM and recommended acetaminophen otherwise for pain. Patient reported understanding. Vital Signs: Vital signs: Vital Signs Temperature 98.0 F 06/13/21 22:53 Pulse Rate 98 06/13/21 22:53 Respiratory Rate 24 H 06/13/21 22:53 Blood Pressure 177/78 06/13/21 22:53 Pulse Oximetry 95 06/13/21 22:53 MDM - Headache MDM Narrative: Medical decision making narrative: Patient comes in today with complaints of headache after a head injury. Patient states that she was over at her mother's house and her mother's boyfriend was breaking up some wood and a piece of wood flew up and hit her in the back of the head. Patient complains of headache and concern for injury. On exam there is no obvious signs of injury. Differential diagnosis includes contusion, intracranial bleeding, skull fracture. CT of the head indicated no bleeding or skull fracture. Patient was given a dose of Reglan and Benadryl for her headache. Patient was encouraged to drink plenty of water and use Tylenol otherwise for pain. Patient reported understanding. Discharge Plan Discharge Patient Disposition: Home Clinical Impression: Minor closed head injury Condition: Stable Prescriptions: No Action Jardiance 25 mg tablet 25 mg PO DAILY Qty: 90 RF: 3 metformin 500 mg tablet extended release 24 hr 500 mg PO BID Qty: 120 RF: 3 mupirocin 2 % ointment 1 applic topical BID Qty: 15 RF: 0 gabapentin 300 mg capsule 300 mg PO DAILY RF: 0 (DME) 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 meter [Accu-Chek Kori Plus Meter] Misc See Rx Instructions .ROUTE .MEDSUPPLY Qty: 1 RF: 0 (DME) lancets [Accu-Chek Fastclix Lancet Drum] Misc See Rx Instructions .ROUTE .MEDSUPPLY Qty: 100 RF: 1 atenolol 25 mg tablet 25 mg PO BID Qty: 180 RF: 0 albuterol sulfate [Ventolin HFA] 90 mcg/actuation HFA aerosol inhaler 2 puff INHALATION Q6H PRN (Reason: Shortness Of Breath Or Wheezing) Qty: 8.5 RF: 1 (DME) Accu-Chek Kori Plus test strp Strip See Rx Instructions .ROUTE .MEDSUPPLY Qty: 100 RF: 1 citalopram 20 mg tablet 20 mg PO DAILY Qty: 90 RF: 0 lisinopril-hydrochlorothiazide 20-25 mg tablet 1 tab PO DAILY Qty: 90 RF: 0 spironolactone 25 mg tablet 25 mg PO DAILY Qty: 90 RF: 0 omeprazole 40 mg capsule,delayed release(DR/EC) 40 mg PO DAILY Qty: 90 RF: 0 montelukast [Singulair] 10 mg tablet 10 mg PO DAILY Qty: 90 RF: 1 Humulin R U-500 (Conc) Kwikpen 500 unit/mL (3 mL) insulin pen See Rx Instructions SUBCUT QAM Qty: 12 RF: 3 (DME) FreeStyle Zackery 2 Sensor Kit See Rx Instructions .ROUTE .MEDSUPPLY Qty: 2 RF: 3 (DME) FreeStyle Zackery 2 [place] Misc See Rx Instructions .ROUTE .MEDSUPPLY Qty: 1 RF: 0 Voltaren 1 % gel 4 g topical QID Qty: 100 RF: 0 hydrocodone-acetaminophen 5-325 mg tablet 1 tab PO Q8H PRN (Reason: pain (scale score 7-10)) Qty: 7 RF: 0 Discharge Orders: Discharge ED (Routine); Ordered 06/13/21 Ordered By: Herb Nathan Referrals: Mallory Berry FNP [Primary Care Provider] - Discharge Diet: Usual diet Discharge Activity: Increase activity as tolerated Patient Instructions: Head Injury (ED), Opioid Safety Activity Restrictions/Additional Instructions: Home and rest. Drink plenty of fluids. Use acetaminophen for pain. Follow-up with primary care for further instructions. Return to the ER for new concerns. Coding Level of Care Code ED Blow Mold Machine Operator for Leonela Escobedo Exam Comprehensive
[2021-06-13 22:57] VITALS: BP 139/81; PULSE 84; RESP 18; O2SAT 96
--- NOTE | 2021-06-13 22:57 | CTR_ITS ---
PROCEDURE INFORMATION: Exam: CT Head Without Contrast Exam date and time: 06/13/2021 10:57 PM Age: 35 years old Clinical indication: Injury or trauma; Blunt trauma (contusions or hematomas); Patient HX: Patient states was hit in the head with a piece of wood while chopping wood. ; Additional info: Head injury TECHNIQUE: Imaging protocol: Computed tomography of the head without contrast. Radiation optimization: All CT scans at this facility use at least one of these dose optimization techniques: automated exposure control; mA and/or kV adjustment per patient size (includes targeted exams where dose is matched to clinical indication); or iterative reconstruction. COMPARISON: CT head wo con* [id number] 03/31/2021 1:00 PM RADIATION DOSE METRICS: Total DLP (mGy-cm): 893.44 FINDINGS: Brain: Unremarkable. No hemorrhage. No significant white matter disease. No edema. Cerebral ventricles: No ventriculomegaly. Paranasal sinuses: Visualized sinuses are unremarkable. No fluid levels. Mastoid air cells: Unremarkable as visualized. No mastoid effusion. Bones/joints: Unremarkable. No acute fracture. Soft tissues: Unremarkable. CT/CT head wo con* [id number] IMPRESSION: 1. No acute intracranial abnormality demonstrated. 2. There is no interval change from the prior examination. Radiation Dose CTDIVOL = (mGy): DLP = 893.44 (mGy-cm)
[2021-06-13] MEDS: diphenhydrAMINE 50 mg/mL SDV 1mL 25 MG IM (23:33)
[2021-06-13] MEDS: metoclopramide 5 mg/mL SDV 2 mL 10 MG IM (23:33)
[2021-06-14] MEDS: ketorolac 30 mg/mL INJ IM (00:55)
[2021-06-14 00:58] VITALS: BP 139/81; PULSE 80; RESP 18; O2SAT 96
== END 2021-06-14 01:00 | disposition home or self-care (01) ==
PROVIDERS: Emergency Provider Nurse Practitioner Family; PCP Nurse Practitioner Family
DX: S09.8XXA Other specified injuries of head, initial encounter (principal); Z79.84 Long term (current) use of oral hypoglycemic drugs; Z79.4 Long term (current) use of insulin; I10 Essential (primary) hypertension; E78.5 Hyperlipidemia, unspecified; E11.9 Type 2 diabetes mellitus without complications; F17.210 Nicotine dependence, cigarettes, uncomplicated; W20.8XXA Other cause of strike by thrown, projected or falling object, initial encounter
CPT/HCPCS: 70450; 96372; 99283; J1200; J1885; J2765

== ENCOUNTER 2021-07-02 17:42 | Emergency (ER) | payer MEDICARE, MEDICAID, SELFPAY ==
[2021-07-02 17:52] VITALS: BP 138/80; PULSE 88; RESP 19; TEMP 36.7; O2SAT 97; BMI 64.4
--- NOTE | 2021-07-02 17:53 | XRR_ITS ---
PROCEDURE INFORMATION: Exam: XR Right Knee Exam date and time: 07/02/2021 5:53 PM Age: 35 years old Clinical indication: Pain; Knee; Right; Additional info: Injury TECHNIQUE: Imaging protocol: XR Right knee. Views: 3 views. COMPARISON: CR (LOW EXM, ) 10/15/2020 4:51 PM FINDINGS: Bones/joints: Alignment is normal. Joint spaces are preserved. No acute fracture. There are small medial and lateral compartment osteophytes. Assessment for joint effusion is limited. Soft tissues: Visible soft tissues are unremarkable. XR/XR knee RT 3V* [id number] IMPRESSION: No acute findings. Radiation Dose CTDIVOL = (mGy): DLP = (mGy-cm)
--- NOTE | 2021-07-02 18:00 | W.ED.EXTPRO ---
HPI - Extremity Problem General: Chief complaint: Extremity Problem,Nontraumatic Stated complaint: R KNEE INJURY Time Seen by Provider: 07/02/21 18:00 History of Present Illness: HPI Narrative: 35-year-old female ports that last night she stood up and had sudden onset of right knee pain. Patient did not fall or injure the knee as known. Patient appears well. Patient appears in moderate pain. Patient has a history of diabetes, neuropathy, dyslipidemia, asthma, GERD, and morbid obesity. 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 Morbid obesity with BMI of 60.0-69.9, adult Muscle spasms of both lower extremities Pain management contract signed Prolonged depression Spinal stenosis, thoracic region Type 2 diabetes mellitus, with long-term current use of insulin Surgical History History of cholecystectomy Family History Father CAD (coronary artery disease) Diabetes Hypertension Family/Other Cancer Mother Diabetes Hypertension Social History Smoking and tobacco status: current every day smoker (1 pack per day ) cigarettes Packs smoked per day: 0.5 Alcohol intake: never Caregiver/support person: Yes Household members: spouse and family Marital status: Current occupational status: disabled Current occupation: disabled History of recent travel: No Female Reproductive History: Date of last menstrual period: 05/07/21 Physical Exam Const: COMMON NORMALS: no acute distress and patient oriented x3 GENERAL APPEARANCE: cooperative HENMT: COMMON NORMALS: normocephalic and Normal external nose present HEAD & SCALP: normal to inspection and normocephalic NOSE: Normal external nose present Eye: GENERAL EYE: appearance normal, both eyes and all related structures Neck/C-Spine: COMMON NORMALS: full ROM Lymph: LYMPHATIC: no lymphadenopathy noted Chest: COMMONS NORMALS: normal inspection of the chest Resp: COMMON NORMALS: normal respiratory effort EFFORT & INSPECTION: Yes able to speak in complete sentences Cardio: COMMON NORMALS: regular rate and regular rhythm RATE: regular rate RHYTHM: regular rhythm GI: COMMON NORMALS: non-tender Back/Pelvis: COMMON NORMALS: thoracic and lumbar spine normal to inspection Extremity: NARRATIVE EXTREMITY EXAM: Tenderness noted to palpation of the anterior and posterior knee. No significant swelling is noted to the knee. Distal pulses and sensations are intact. Neuro: COMMON NORMALS: patient oriented x3 and moves all extremities Psych: COMMON NORMALS: mental status grossly normal and cooperative Skin: COMMON NORMALS: no rashes or lesions noted GENERAL SKIN EXAM: no rashes or lesions noted Course Vital Signs: Vital signs: Vital Signs Temperature 98.1 F 07/02/21 17:52 Pulse Rate 90 07/02/21 18:04 Respiratory Rate 16 07/02/21 18:04 Blood Pressure 135/82 07/02/21 18:04 Pulse Oximetry 97 07/02/21 18:04 MDM - Extremity (Nontraumatic) MDM Narrative: Medical decision making narrative: 35-year-old female comes in today with right knee pain. On exam patient has no obvious swelling or injury to the right knee. Pulses are intact. Patient is very guarded with movement due to pain. Differential diagnosis includes but not limited to knee sprain, meniscal injury, osteoarthritis. X-ray did not note any fracture or dislocation. Reviewed exam with patient with recommendations for treatment and follow-up with primary care for further evaluation and treatment. Patient was given 7 tablets of hydrocodone 11/08/2024 for breakthrough pain, no current prescription for hydrocodone was noted in the record. Patient was encouraged to use acetaminophen and ibuprofen for control of pain. Patient reported understanding and agreed to plan. Discharge Plan Discharge Patient Disposition: Home Clinical Impression: Acute pain of right knee Condition: Stable Prescriptions: Continued hydrocodone-acetaminophen 5-325 mg tablet 1 tab PO Q8H PRN (Reason: pain (scale score 7-10)) Qty: 7 RF: 0 No Action Jardiance 25 mg tablet 25 mg PO DAILY Qty: 90 RF: 3 mupirocin 2 % ointment 1 applic topical BID Qty: 15 RF: 0 gabapentin 300 mg capsule 300 mg PO DAILY RF: 0 (DME) 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 meter [Accu-Chek Kori Plus Meter] Misc See Rx Instructions .ROUTE .MEDSUPPLY Qty: 1 RF: 0 (DME) lancets [Accu-Chek Fastclix Lancet Drum] Misc See Rx Instructions .ROUTE .MEDSUPPLY Qty: 100 RF: 1 atenolol 25 mg tablet 25 mg PO BID Qty: 180 RF: 0 albuterol sulfate [Ventolin HFA] 90 mcg/actuation HFA aerosol inhaler 2 puff INHALATION Q6H PRN (Reason: Shortness Of Breath Or Wheezing) Qty: 8.5 RF: 1 (DME) Accu-Chek Kori Plus test strp Strip See Rx Instructions .ROUTE .MEDSUPPLY Qty: 100 RF: 1 citalopram 20 mg tablet 20 mg PO DAILY Qty: 90 RF: 0 lisinopril-hydrochlorothiazide 20-25 mg tablet 1 tab PO DAILY Qty: 90 RF: 0 spironolactone 25 mg tablet 25 mg PO DAILY Qty: 90 RF: 0 omeprazole 40 mg capsule,delayed release(DR/EC) 40 mg PO DAILY Qty: 90 RF: 0 montelukast [Singulair] 10 mg tablet 10 mg PO DAILY Qty: 90 RF: 1 Humulin R U-500 (Conc) Kwikpen 500 unit/mL (3 mL) insulin pen See Rx Instructions SUBCUT QAM Qty: 12 RF: 3 (DME) FreeStyle Zackery 2 Sensor Kit See Rx Instructions .ROUTE .MEDSUPPLY Qty: 2 RF: 3 (DME) FreeStyle Zackery 2 [place] Misc See Rx Instructions .ROUTE .MEDSUPPLY Qty: 1 RF: 0 metformin 500 mg tablet extended release 24 hr 500 mg PO BID Qty: 180 RF: 3 Voltaren 1 % gel 4 g topical QID Qty: 100 RF: 0 Discharge Orders: Discharge ED (Routine); Ordered 07/02/21 Ordered By: Herb Nathan Referrals: Mallory Berry FNP [Primary Care Provider] - Discharge Diet: Usual diet Discharge Activity: Increase activity as tolerated Patient Instructions: Knee Pain (ED), Opioid Safety Activity Restrictions/Additional Instructions: Continue with routine medications as directed. Use acetaminophen ibuprofen to control pain. Use hydrocodone for breakthrough pain. Use ice packs for continued pain relief. Drink plenty of water with medication. Follow-up with primary care at scheduled appointment on Wednesday for further evaluation and treatment. Your x-ray did not show any significant abnormalities. Return to the ED for new concerns. Coding Level of Care Code ED Director Of Employee Development for Leonela Escobedo
[2021-07-02 18:04] VITALS: BP 135/82; PULSE 90; RESP 16; O2SAT 97
[2021-07-02] MEDS: HYDROcodone-acetaminophen 5-325 mg Tablet 1 TAB PO (18:30)
== END 2021-07-02 18:31 | disposition home or self-care (01) ==
PROVIDERS: Emergency Provider Nurse Practitioner Family; PCP Nurse Practitioner Family
DX: M25.561 Pain in right knee (principal); E66.01 Morbid (severe) obesity due to excess calories; Z68.44 Body mass index [BMI] 60.0-69.9, adult; F17.210 Nicotine dependence, cigarettes, uncomplicated
CPT/HCPCS: 73562; 99283

== ENCOUNTER → 2021-07-03 13:15 | Outpatient (BNVA) | payer MEDICARE, MEDICAID, SELFPAY | PROVIDERS: PCP Nurse Practitioner Family; Visit Provider Internal Medicine | DX: E11.40 Type 2 diabetes mellitus with diabetic neuropathy, unspecified (principal); K76.0 Fatty (change of) liver, not elsewhere classified; E66.01 Morbid (severe) obesity due to excess calories; Z68.44 Body mass index [BMI] 60.0-69.9, adult; Z79.4 Long term (current) use of insulin; F17.210 Nicotine dependence, cigarettes, uncomplicated | CPT/HCPCS: 99214 ==

== ENCOUNTER → 2021-07-16 15:15 | Outpatient (BNVA) | payer MEDICARE, MEDICAID, SELFPAY | PROVIDERS: PCP Nurse Practitioner Family; Visit Provider Internal Medicine | DX: E11.40 Type 2 diabetes mellitus with diabetic neuropathy, unspecified (principal); K76.0 Fatty (change of) liver, not elsewhere classified; E66.01 Morbid (severe) obesity due to excess calories; Z68.44 Body mass index [BMI] 60.0-69.9, adult; Z79.4 Long term (current) use of insulin; F17.210 Nicotine dependence, cigarettes, uncomplicated | CPT/HCPCS: 99214 ==

== ENCOUNTER 2021-07-19 16:09 | Emergency (ER) | payer MEDICARE, MEDICAID, SELFPAY ==
[2021-07-19 17:13] VITALS: BP 123/78; PULSE 88; RESP 20; TEMP 36.8; O2SAT 95; BMI 64.4
--- NOTE | 2021-07-19 17:26 | ECG_ITS ---
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 Measurements Intervals [place] Rate: 88 P: 38 [place]: 196 QRS: 42 QRSD: 93 T: 30 QT: 379 QTc: 459 Interpretive Statements SINUS RHYTHM Compared to ECG 06/30/2020 04:34:36 No significant changes Electronically Signed On 07-19-2021 22:47:16 LOG HAUL OPERATOR by Velasquez Desai M.D. [email or web address]
--- NOTE | 2021-07-19 19:32 | XRR_ITS ---
PROCEDURE INFORMATION: Exam: XR Chest Exam date and time: 07/19/2021 7:32 PM Age: 35 years old Clinical indication: Sternal or substernal pain; Additional info: Cp TECHNIQUE: Imaging protocol: XR of the chest. Views: 1 view. Total images: 1 COMPARISON: CR XR chest 1V portable [id number] 06/30/2020 4:46 AM FINDINGS: Lungs: No visible active interstitial or alveolar airspace disease. Pleural spaces: Unremarkable. No pleural effusion. No pneumothorax. Heart/Mediastinum: Mild cardiomegaly. Bones/joints: Unremarkable. Other findings: Obesity. XR/XR chest 1V portable [id number] IMPRESSION: Nonacute. Radiation Dose CTDIVOL = (mGy): DLP = (mGy-cm)
[2021-07-19 20:09] LABS: HCG Qualitative Urine. Negative (Negative)
[2021-07-19 20:43] VITALS: BP 124/80; PULSE 83; RESP 20; O2SAT 99
--- NOTE | 2021-07-19 21:06 | ED_ITS ---
HPI - Chest Pain General: Chief Complaint: Chest Pain Stated Complaint: R LEG PAIN/FALL RELATED Time Seen by Provider: 07/19/21 21:05 History of Present Illness: HPI narrative: Ms. Curry is a 35-year-old lady with complex past medical history including hypertension, hyperlipidemia, diabetes, morbid obesity, chronic pain who presents emergency department due to leg injury and pain. She reports history of intermittent episodes of chest pain and had sharp left anterior chest pain about 2 days ago. She stumbled and fell with her right leg hitting a door or door jam. She was able to ambulate afterwards but immediately had pain. Pain is now been worsening. No associated paresthesias. Overall the course of symptoms has been worsening and now is moderate to severe in intensity worse with ambulation. No other significant changes in health reported. Review of Systems General: Reports: 10 or more systems reviewed and unremarkable except in HPI and below PFSH ED PFSH: Medical History Amenorrhea Asthma Benign essential HTN Bilateral chronic knee pain Bilateral leg edema Dyslipidemia GERD (gastroesophageal reflux disease) [facility] (current) use of opiate analgesic Morbid obesity with BMI of 60.0-69.9, adult Muscle spasms of both lower extremities Pain management contract signed Prolonged depression Spinal stenosis, thoracic region Type 2 diabetes mellitus, with long-term current use of insulin Surgical History History of cholecystectomy Family History Father CAD (coronary artery disease) Diabetes Hypertension Family/Other Cancer Mother Diabetes Hypertension Social History Alcohol intake: never Caregiver/support person: Yes Household members: spouse and family Marital status: Current occupational status: disabled Current occupation: disabled History of recent travel: No Female Reproductive History: Date of last menstrual period: 06/08/21 Physical Exam Narrative: EXAM NARRATIVE: GENERAL/CONSTITUTIONAL - well-appearing. Uncomfortable due to leg pain. Morbidly obese. Eyes -no icterus, no conjunctival injection ENMT - Atraumatic external nose and ears. Moist mucous membranes NECK - supple. trachea midline CARDIOVASCULAR - regular rate and rhythm. Normal peripheral perfusion RESPIRATORY -no wheezing no retractions or accessory muscle use. ABDOMEN/GI - Nontender/Nondistended. MSK -right lower extremity without obvious external injury however there is generalized tenderness palpation throughout more or less the entire leg especially around the joint spaces. SKIN - Warm, Dry, no significant contusions. No abrasions. NEURO - alert and appropriately oriented. strength and sensation intact. Course ED course: - Patient was seen and evaluated by me at bedside - Patient placed on cardiac monitors, IV access obtained - Initial evaluation notable for exam as noted above, lower extremity tender to palpation without obvious external injury. - Symptom treatment ordered - Imaging notable for no acute bony injury identified. - Upon serial reexamination after treatment the patient was improved with repeat doses of analgesia - Based on patient history, evaluation, labs, and imaging as interpreted the most likely cause of the patient's condition is mechanical fall with soft tissue injury without evidence of bony injury - The results of ED evaluation were discussed with the patient including prescriptions and/or symptomatic cares (if applicable) including appropriate and responsible use, followup plan, and return precautions. The patient verbalized understanding and felt safe for discharge. - Patient discharged in satisfactory condition. Vital Signs: Vital signs: Vital Signs Temperature 98.3 F 07/19/21 17:13 Pulse Rate 88 07/19/21 23:34 Respiratory Rate 18 07/19/21 23:34 Blood Pressure 150/70 07/19/21 23:34 Pulse Oximetry 97 07/19/21 23:34 MDM - Chest Pain Medical Records: Attestation: I reviewed the patient's medical records. Lab Data: Attestation: I reviewed the patient's lab results. Labs: Lab Results 07/19/21 07/19/21 18:48 21:43 Troponin T Baselin e 6 ng/L ng/L (0-10) HCG, Qual Negative (Negative) Discharge Plan Discharge Patient Disposition: Home Clinical Impression: Fall, Chest pain, Acute leg pain Condition: Stable Prescriptions: No Action amitriptyline 25 mg tablet 25 mg PO DAILY RF: 0 gabapentin 300 mg capsule 300 mg PO BID RF: 0 insulin lispro [Humalog U-100 Insulin] 100 unit/mL solution See Rx Instructions SUBCUT .COMPLEX Qty: 140 RF: 3 insulin aspart U-100 [Novolog U-100 Insulin aspart] 100 unit/mL solution See Rx Instructions SUBCUT .COMPLEX Qty: 140 RF: 3 (DME) 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 meter [Accu-Chek Kori Plus Meter] Misc See Rx Instructions .ROUTE .MEDSUPPLY Qty: 1 RF: 0 (DME) lancets [Accu-Chek Fastclix Lancet Drum] Misc See Rx Instructions .ROUTE .MEDSUPPLY Qty: 100 RF: 1 atenolol 25 mg tablet 25 mg PO BID Qty: 180 RF: 0 albuterol sulfate [Ventolin HFA] 90 mcg/actuation HFA aerosol inhaler 2 puff INHALATION Q6H PRN (Reason: Shortness Of Breath Or Wheezing) Qty: 8.5 RF: 1 (DME) Accu-Chek Kori Plus test strp Strip See Rx Instructions .ROUTE .MEDSUPPLY Qty: 100 RF: 1 citalopram 20 mg tablet 20 mg PO DAILY Qty: 90 RF: 0 lisinopril-hydrochlorothiazide 20-25 mg tablet 1 tab PO DAILY Qty: 90 RF: 0 spironolactone 25 mg tablet 25 mg PO DAILY Qty: 90 RF: 0 omeprazole 40 mg capsule,delayed release(DR/EC) 40 mg PO DAILY Qty: 90 RF: 0 montelukast [Singulair] 10 mg tablet 10 mg PO DAILY Qty: 90 RF: 1 (DME) FreeStyle Zackery 2 Sensor Kit See Rx Instructions .ROUTE .MEDSUPPLY Qty: 2 RF: 3 (DME) FreeStyle Zackery 2 [place] Misc See Rx Instructions .ROUTE .MEDSUPPLY Qty: 1 RF: 0 metformin 500 mg tablet extended release 24 hr 500 mg PO BID Qty: 180 RF: 3 Voltaren 1 % gel 4 g topical QID Qty: 100 RF: 0 hydrocodone-acetaminophen 5-325 mg tablet 1 tab PO Q8H PRN (Reason: pain (scale score 7-10)) Qty: 7 RF: 0 Discharge Orders: Discharge ED (Routine); Ordered 07/19/21 Ordered By: Gui Watts Referrals: Mallory Berry FNP [Primary Care Provider] - Discharge Diet: Usual diet Discharge Activity: Increase activity as tolerated Patient Instructions: Chest Pain (ED), Musculoskeletal Pain (ED), Opioid Safety Activity Restrictions/Additional Instructions: Thank you for visiting the emergency department. You were seen and evaluated for pain after fall. You were not found to have any bony injury, you likely have pain related to muscle and soft tissue strain and injury. The mainstay of treatment for this is Tylenol and NSAIDs. Please do not exceed the daily recommended dosages of these medications. Please keep in mind that many namebrand medications contain the same active ingredients. Please return to the emergency department for anything that you are concerned about and feel needs emergency department evaluation. Coding Level of Care Code ED Poultry Husbandman for Leonela Escobedo
--- NOTE | 2021-07-19 21:17 | XRR_ITS ---
PROCEDURE INFORMATION: Exam: XR Right Hip Exam date and time: 07/19/2021 9:17 PM Age: 35 years old Clinical indication: Injury or trauma; Fall; Blunt trauma (contusions or hematomas); Right; Hip; Additional info: Fall, pain TECHNIQUE: Imaging protocol: XR Right hip. Views: 1 view hip with pelvis when performed. Total images: 2 COMPARISON: CT abdomen pelvis w con* [id number] 05/23/2020 3:57 PM FINDINGS: Bones/joints: No visible evidence of active or acute osseous pathology. Soft tissues: Unremarkable. Other findings: Marked obesity. XR/XR hip RT 2-3V wo/w pel* [id number] IMPRESSION: Nonacute. Radiation Dose CTDIVOL = (mGy): DLP = (mGy-cm)
--- NOTE | 2021-07-19 21:17 | XRR_ITS ---
PROCEDURE INFORMATION: Exam: XR Right Ankle Exam date and time: 07/19/2021 9:17 PM Age: 35 years old Clinical indication: Injury or trauma; Fall; Blunt trauma; Ankle; Right; Additional info: Fall, pain TECHNIQUE: Imaging protocol: XR Right ankle. Views: 3 or more views. Total images: 3 COMPARISON: CR (LOW EXM, ) 10/15/2020 4:51 PM FINDINGS: Bones/joints: No visible evidence of active or acute osseous pathology. Ankle mortise intact. Soft tissues: Mild soft tissue swelling over the lateral malleolus. XR/XR ankle RT min 3V* [id number] IMPRESSION: Mild soft tissue swelling over the lateral malleolus. Radiation Dose CTDIVOL = (mGy): DLP = (mGy-cm)
--- NOTE | 2021-07-19 21:17 | XRR_ITS ---
PROCEDURE INFORMATION: Exam: XR Right Knee Exam date and time: 07/19/2021 9:17 PM Age: 35 years old Clinical indication: Injury or trauma; Fall; Blunt trauma; Knee; Right; Additional info: Fall, pain TECHNIQUE: Imaging protocol: XR Right knee. Views: 3 views. Total images: 3 COMPARISON: CR (LOW EXM, ) 07/02/2021 6:03 PM FINDINGS: Bones/joints: No visible evidence of active or acute osseous pathology. Early degenerative joint disease. Soft tissues: Unremarkable. Other findings: Marked obesity. XR/XR knee RT 3V* [id number] IMPRESSION: Nonacute. Radiation Dose CTDIVOL = (mGy): DLP = (mGy-cm)
--- NOTE | 2021-07-19 21:17 | XRR_ITS ---
PROCEDURE INFORMATION: Exam: XR Right Tibia and Fibula Exam date and time: 07/19/2021 9:17 PM Age: 35 years old Clinical indication: Injury or trauma; Fall; Blunt trauma; Lower leg; Right; Additional info: Fall pain TECHNIQUE: Imaging protocol: XR Right tibia and fibula. Views: 2 views. Total images: 2 COMPARISON: CR (LOW EXM, ) 07/19/2021 9:24 PM FINDINGS: Bones/joints: No visible evidence of active or acute osseous pathology. Mild degenerative joint disease of the right knee. Soft tissues: Normal. Other findings: Marked obesity. XR/XR tibia fibula RT 2V [id number] IMPRESSION: Nonacute. Radiation Dose CTDIVOL = (mGy): DLP = (mGy-cm)
--- NOTE | 2021-07-19 21:17 | XRR_ITS ---
PROCEDURE INFORMATION: Exam: XR Right Femur Exam date and time: 07/19/2021 9:17 PM Age: 35 years old Clinical indication: Injury or trauma; Fall; Blunt trauma; Thigh or upper leg; Right; Additional info: Fall, pain TECHNIQUE: Imaging protocol: XR Right femur. Views: 2 views. Total images: 4 COMPARISON: CR 07/19/2021 9:29 PM FINDINGS: Bones/joints: No visible evidence of active or acute osseous pathology. Mild degenerative joint disease of the knee. Soft tissues: Unremarkable. Other findings: Marked obesity. XR/XR femur RT min 2V* [id number] IMPRESSION: Nonacute. Radiation Dose CTDIVOL = (mGy): DLP = (mGy-cm)
[2021-07-19] MEDS: acetaminophen 500 mg Tablet 1000 MG PO (21:46)
[2021-07-19] MEDS: methocarbamol 750 mg Tablet PO (21:46)
[2021-07-19] MEDS: ketorolac 30 mg/mL INJ 15 MG IVP (21:48)
[2021-07-19] MEDS: morphine 4 mg/mL SDV 1 mL IVP (21:48)
[2021-07-19 22:23] LABS: Troponin(5th) Baseline 6 ng/L (0-10)
[2021-07-19 23:33] VITALS: O2SAT 97
[2021-07-19] MEDS: oxyCODONE 5 mg IR Tab/Cap PO (23:33)
[2021-07-19 23:34] VITALS: BP 150/70; PULSE 88; RESP 18; O2SAT 97
== END 2021-07-19 23:35 | disposition home or self-care (01) ==
PROVIDERS: Emergency Provider Emergency Medicine; PCP Nurse Practitioner Family
DX: R07.9 Chest pain, unspecified (principal); M79.604 Pain in right leg; I10 Essential (primary) hypertension; E78.5 Hyperlipidemia, unspecified; E11.9 Type 2 diabetes mellitus without complications
CPT/HCPCS: 71045; 73502; 73552; 73562; 73590; 73610; 81025; 84484; 93005; 96374; 96375; 99283; J1885; J2270

== ENCOUNTER 2021-07-28 19:19 | Emergency (ER) | payer MEDICARE, MEDICAID, SELFPAY ==
--- NOTE | 2021-07-28 19:21 | XRR_ITS ---
PROCEDURE INFORMATION: Exam: XR Chest Exam date and time: 07/28/2021 7:21 PM Age: 35 years old Clinical indication: Pain; On breathing; Additional info: Cp TECHNIQUE: Imaging protocol: XR of the chest. Views: 1 view. COMPARISON: CR (CHEST, ) 07/19/2021 8:14 PM FINDINGS: Lungs: Unremarkable. No consolidation. Pleural spaces: Unremarkable. No pleural effusion. No pneumothorax. Heart/Mediastinum: Unremarkable. No cardiomegaly. Bones/joints: Unremarkable. XR/XR chest 1V portable [id number] IMPRESSION: No acute findings. Radiation Dose CTDIVOL = (mGy): DLP = (mGy-cm)
--- NOTE | 2021-07-28 19:21 | ECG_ITS ---
[facility] Test Date: 2021-07-28 Pat Name: Lorraine Curry Department: Room: Gender: Female Jackscrew Man: : 1985 Requested By: Kat Yang Order Number: [id number] Gabe MD: Velasquez Desai M.D. Measurements Intervals [place] Rate: 84 P: 48 [place]: 188 QRS: 45 QRSD: 93 T: 33 QT: 386 QTc: 457 Interpretive Statements SINUS RHYTHM Compared to ECG 07/19/2021 17:18:08 Nonspecific change No significant changes Electronically Signed On 07-29-2021 15:52:37 MAIL PROCESSOR by Velasquez Desai M.D. [id number]
[2021-07-28 19:28] VITALS: BP 123/75; PULSE 84; RESP 16; TEMP 36.8; O2SAT 95; BMI 64.4
--- NOTE | 2021-07-28 19:54 | ED_ITS ---
HPI - Chest Pain General: Chief Complaint: Chest Pain Stated Complaint: CHEST PAINS, Dizzy when stands Time Seen by Provider: 07/28/21 19:36 Source: patient Mode of arrival: ambulatory Limitations: no limitations History of Present Illness: HPI narrative: 35-year-old female has been out of the has a history of morbid obesity states she started having chest pain 1 to 2 hours ago states that sharp pain in the center of her chest radiates to her shoulder states she has had chest pain before in the past. Denies any worsening improving factors denies any vomiting or diarrhea denies any abdominal pain she denies any diaphoresis. States her pain is currently a 9 out of 10. Associated symptoms: Deny abdominal pain, dyspnea, fever(s), nausea or vomiting Review of Systems Const: Denies: fever(s), chills, body aches or change in appetite Eyes: Denies: blurry vision or eye discomfort ENMT: Denies: throat pain or dental pain Card: Reports: chest pain Resp: Denies: dyspnea GI: Denies: abdominal pain, nausea, vomiting or diarrhea : Denies: dysuria Musc: Denies: neck pain or back pain Skin/Breast: Denies: rash Neuro: Denies: headache(s) Psych: Denies: depression Sunday/Lymph: Denies: easy bruising All/Imm: Denies: urticaria PFSH ED PFSH: Medical History (Updated 07/28/21 @ 22:31 by Kat Yang MD) Amenorrhea Asthma Benign essential HTN Bilateral chronic knee pain Bilateral leg edema Dyslipidemia GERD (gastroesophageal reflux disease) retirement (current) use of opiate analgesic Morbid obesity with BMI of 60.0-69.9, adult Muscle spasms of both lower extremities Pain management contract signed Prolonged depression Spinal stenosis, thoracic region Type 2 diabetes mellitus, with long-term current use of insulin Surgical History History of cholecystectomy Family History Father CAD (coronary artery disease) Diabetes Hypertension Family/Other Cancer Mother Diabetes Hypertension Social History Alcohol intake: never Caregiver/support person: Yes Household members: spouse and family Marital status: Current occupational status: disabled Current occupation: disabled History of recent travel: No Female Reproductive History: Date of last menstrual period: 06/08/21 Physical Exam Const: COMMON NORMALS: no acute distress and patient oriented x3 NUTRITIONAL APPEARANCE: obese HENMT: COMMON NORMALS: normocephalic and atraumatic HEAD & SCALP: normocephalic and atraumatic Eye: COMMON NORMALS: Equal, round and reactive pupils present and EOMs intact bilaterally PUPIL: Yes Equal, round and reactive pupils present Neck/C-Spine: COMMON NORMALS: full ROM and supple Chest: COMMONS NORMALS: normal inspection of the chest and normal palpation of entire chest wall Resp: COMMON NORMALS: normal respiratory effort, No retractions, No use of accessory muscles and clear to auscultation bilaterally AUSCULTATION: clear to auscultation bilaterally Cardio: COMMON NORMALS: regular rate, regular rhythm and No murmurs present (Cardio) RATE: regular rate RHYTHM: regular rhythm GI: COMMON NORMALS: Normal to inspection, nondistended, normoactive bowel sounds present, Soft to palpation, non-tender and no masses PALPATION: Yes Soft to palpation Extremity: COMMON NORMALS: normal to inspection and full ROM Neuro: COMMON NORMALS: patient oriented x3, moves all extremities and no focal motor deficits Psych: COMMON NORMALS: mental status grossly normal, Normal thought process present and cooperative THOUGHT PROCESS: Normal thought process present Skin: COMMON NORMALS: no rashes or lesions noted and no wounds GENERAL SKIN EXAM: no rashes or lesions noted Course Vital Signs: Vital signs: Vital Signs Temperature 98.3 F 07/28/21 19:28 Pulse Rate 84 07/28/21 19:28 Respiratory Rate 16 07/28/21 20:13 Blood Pressure 123/75 07/28/21 19:28 Pulse Oximetry 95 07/28/21 19:28 MDM - Chest Pain MDM Narrative: Medical decision making narrative: Patient presents here with chest pains atypical in nature. Her troponins here are both negative she has no signs of acute coronary syndrome or pulmonary embolism she is stable for discharge is to follow-up with PCP and return if worsening she understands agrees to plan. Lab Data: Labs: Lab Results 07/28/21 07/28/21 07/28/21 19:50 19:50 19:50 WBC 14.1 10^3/uL H 10 ^3/uL (4.0-10.0) RBC 4.86 10^6/uL 10^6 /uL (4.1-5.3) Hgb 14.0 g/dL g/dL (11.5-15.3) Hct 41.6 % % (37.0-47.0) MCV 85.6 fl fl (81-99) MCH 28.8 pg pg (28.0-34.0) MCHC 33.7 g/dL g/dL (30.0-36.0) RDW 13.7 % % (12.1-15.1) Plt Count 349 10^3/cmm 10^3 /cmm (130-400) MPV 11.5 fL H fL (7.4-10.4) Neut % (Auto) 75.9 % % Lymph % (Auto) 13.8 % % [place] % (Auto) 7.0 % % Eos % (Auto) 1.5 % % Baso % (Auto) 0.5 % % Neut # (Auto) 10.69 10^3/uL H 1 0^3/uL (1.8-7.7) Lymph # (Auto) 2.0 10^3/uL 10^3/ uL (0.8-4.8) [place] # (Auto) 1.0 10^3/uL H 10^ 3/uL (0.2-0.9) Eos # (Auto) 0.2 10^3/uL 10^3/ uL (0.0-0.8) Baso # (Auto) 0.1 10^3/uL 10^3/ uL (0.0-0.1) Nucleated RBC % (a uto) 0 % % Nucleated RBCs # 0.0 /100WBC /100W BC Sodium Cancelled Potassium Cancelled Chloride Cancelled Carbon Dioxide Cancelled Anion Gap Cancelled BUN Cancelled Creatinine Cancelled GFR Calculation Cancelled Glucose Cancelled Calculated Osmolal ity Cancelled Calcium Cancelled Total Bilirubin Cancelled AST Cancelled ALT Cancelled Alkaline Phosphata se Cancelled Troponin T Baselin e 6 ng/L ng/L (0-10) Troponin T 120 [place] Troponin T Total Protein Cancelled Albumin Cancelled Globulin Cancelled 07/28/21 07/28/21 20:12 21:43 WBC RBC Hgb Hct MCV MCH MCHC RDW Plt Count MPV Neut % (Auto) Lymph % (Auto) [place] % (Auto) Eos % (Auto) Baso % (Auto) Neut # (Auto) Lymph # (Auto) [place] # (Auto) Eos # (Auto) Baso # (Auto) Nucleated RBC % (a uto) Nucleated RBCs # Sodium 134 mmol/L L mmol /L (136-145) Potassium 4.2 mmol/L mmol/L (3.5-5.1) Chloride 98 mmol/L mmol/L (98-107) Carbon Dioxide 22 mmol/L mmol/L (22-29) Anion Gap 18.2 (5-19) BUN 17 mg/dL mg/dL (6-20) Creatinine 0.7 mg/dL mg/dL (0.5-0.9) GFR Calculation 96.4 mL/min mL/mi n (90-130) Glucose 90 mg/dL mg/dL (65-115) Calculated Osmolal ity 279 mOsm/kg L mOs m/kg (285-295) Calcium 8.6 mg/dL mg/dL (8.5-10.5) Total Bilirubin 0.4 mg/dL mg/dL (0.15-1.2) AST 15 U/L U/L (0-32) ALT 26 U/L U/L (0-33) Alkaline Phosphata se 79 IU/L IU/L (35-105) Troponin T Baselin e Troponin T 120 [address] [place] 6.00 ng/L ng/L (0-10) Delta Troponin T 0 ABS# ABS# (0-10) Total Protein 7.8 g/dL g/dL (6.6-8.7) Albumin 4.0 g/dL g/dL (3.5-5.2) Globulin 3.8 g/dL g/dL (1.3-4.6) Imaging Data^: CXR: Attestation: I personally reviewed and interpreted this imaging study as follows: Radiologist's impression: [address] [place] [address] XRay Report Signed Patient: Ayde Roa Unit #: [id number] : 05/28/1950 Age/Sex: 71 / F ADM Date: 07/28/21 Loc: ER Room/Bed: Attending Dr: Ordering Provider/Ordering MD: Kat Yang MD Date of Service: 07/28/21 Procedure(s): XR chest 1V portable [id number] Accession Number(s): [id number] Report Number: [id number] PROCEDURE INFORMATION: Exam: XR Chest Exam date and time: 07/28/2021 6:12 PM Age: 71 years old Clinical indication: Chest wall pain; Additional info: Cp TECHNIQUE: Imaging protocol: XR of the chest. Views: 1 view. COMPARISON: CT angio chest PE protcl [id number] 07/27/2021 2:04 AM FINDINGS: Lungs: Unremarkable. No consolidation. Pleural spaces: Unremarkable. No pleural effusion. No pneumothorax. Heart/Mediastinum: Large hiatal hernia. Negative for cardiomegaly. Bones/joints: Unremarkable. Lumbar spine posterior fusion. Surgical anchor in the proximal left humerus. XR/XR chest 1V portable [id number] IMPRESSION: No acute findings. Radiation Dose CTDIVOL = (mGy): DLP = (mGy-cm) Dictated By: Guillaume More Signed By: Guillaume More Signed Date/Time: 07/28/212016 DD/ 181 EKG Data^: EKG 1: Attestation: I personally reviewed and interpreted this EKG as follows: EKG interpretation date: 07/28/21 EKG interpretation time: 19:26 Interpretation: nsr hr [address] or t wave abnormalities qrs 93 qtc 427 EKG 2: Attestation: I personally reviewed and interpreted this EKG as follows: EKG interpretation date: 08/15/21 EKG interpretation time: 21:36 Interpretation: nsr hr [address] or t wave abnormalities qrs 93 qtc 430 Discharge Plan Discharge Patient Disposition: Home Clinical Impression: Chest pain Condition: Stable Prescriptions: No Action amitriptyline 25 mg tablet 25 mg PO DAILY RF: 0 gabapentin 300 mg capsule 300 mg PO BID RF: 0 insulin lispro [Humalog U-100 Insulin] 100 unit/mL solution See Rx Instructions SUBCUT .COMPLEX Qty: 140 RF: 3 insulin aspart U-100 [Novolog U-100 Insulin aspart] 100 unit/mL solution See Rx Instructions SUBCUT .COMPLEX Qty: 140 RF: 3 (DME) 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 meter [Accu-Chek Kori Plus Meter] Misc See Rx Instructions .ROUTE .MEDSUPPLY Qty: 1 RF: 0 (DME) lancets [Accu-Chek Fastclix Lancet Drum] Misc See Rx Instructions .ROUTE .MEDSUPPLY Qty: 100 RF: 1 atenolol 25 mg tablet 25 mg PO BID Qty: 180 RF: 0 albuterol sulfate [Ventolin HFA] 90 mcg/actuation HFA aerosol inhaler 2 puff INHALATION Q6H PRN (Reason: Shortness Of Breath Or Wheezing) Qty: 8.5 RF: 1 (DME) Accu-Chek Kori Plus test strp Strip See Rx Instructions .ROUTE .MEDSUPPLY Qty: 100 RF: 1 citalopram 20 mg tablet 20 mg PO DAILY Qty: 90 RF: 0 lisinopril-hydrochlorothiazide 20-25 mg tablet 1 tab PO DAILY Qty: 90 RF: 0 spironolactone 25 mg tablet 25 mg PO DAILY Qty: 90 RF: 0 omeprazole 40 mg capsule,delayed release(DR/EC) 40 mg PO DAILY Qty: 90 RF: 0 montelukast [Singulair] 10 mg tablet 10 mg PO DAILY Qty: 90 RF: 1 (DME) FreeStyle Zackery 2 Sensor Kit See Rx Instructions .ROUTE .MEDSUPPLY Qty: 2 RF: 3 (DME) FreeStyle Zackery 2 [place] Misc See Rx Instructions .ROUTE .MEDSUPPLY Qty: 1 RF: 0 metformin 500 mg tablet extended release 24 hr 500 mg PO BID Qty: 180 RF: 3 Voltaren 1 % gel 4 g topical QID Qty: 100 RF: 0 hydrocodone-acetaminophen 5-325 mg tablet 1 tab PO Q8H PRN (Reason: pain (scale score 7-10)) Qty: 7 RF: 0 Discharge Orders: Discharge ED (Routine); Ordered 07/28/21 Ordered By: Kat Yang Referrals: Mallory Berry FNP [Primary Care Provider] - 1-3 days Discharge Diet: Advance as tolerated Discharge Activity: Resume usual activity Patient Instructions: Chest Pain (ED) Coding Level of Care Code ED Parking Meter Attendant for Chg Fwd Exam Comprehensive
[2021-07-28 20:02] LABS: Basophils # 0.1 10^3/uL (0.0-0.1); Basophils % 0.5 %; Eosinophils # 0.2 10^3/uL (0.0-0.8); Eosinophils % 1.5 %; Hematocrit 41.6 % (37.0-47.0); Lymphocytes % 13.8 %; Mean Corpuscular HGB Conc 33.7 g/dL (30.0-36.0); Mean Corpuscular Hemoglobin 28.8 pg (28.0-34.0); Mean Corpuscular Volume 85.6 fl (81-99); Mean Platelet Volume 11.5 fL (7.4-10.4); Neutrophils # 10.69 10^3/uL (1.8-7.7); Neutrophils % 75.9 %; Nucleated Red Blood Cells % 0 %; Platelet Count 349 10^3/cmm (130-400); Red Blood Count 4.86 10^6/uL (4.1-5.3); Red Cell Distribution Width 13.7 % (12.1-15.1); White Blood Count 14.1 10^3/uL (4.0-10.0)
[2021-07-28 20:13] VITALS: RESP 16
[2021-07-28] MEDS: morphine 4 mg/mL SDV 1 mL IVP (20:13)
[2021-07-28] MEDS: ondansetron 2 mg/ML SDV 2 mL 4 MG IVP ×2 (20:13→22:22)
[2021-07-28 20:21] LABS: Troponin(5th) Baseline 6 ng/L (0-10)
[2021-07-28 21:19] LABS: Alanine Aminotransferase 26 U/L (0-33); Alkaline Phosphatase 79 IU/L (35-105); Anion Gap 18.2 (5-19); Aspartate Amino Transferase 15 U/L (0-32); Blood Urea Nitrogen 17 mg/dL (6-20); Calcium 8.6 mg/dL (8.5-10.5); Carbon Dioxide 22 mmol/L (22-29); Chloride 98 mmol/L (98-107); Globulin 3.8 g/dL (1.3-4.6); Glomerular Filtration Rate 96.4 mL/min (90-130); Glucose 90 mg/dL (65-115); Osmolality Calculated 279 mOsm/kg (285-295); Potassium 4.2 mmol/L (3.5-5.1); Sodium 134 mmol/L (136-145); Total Bilirubin 0.4 mg/dL (0.15-1.2); Total Protein 7.8 g/dL (6.6-8.7)
--- NOTE | 2021-07-28 21:21 | ECG_ITS ---
[facility] Test Date: 2021-07-28 Pat Name: Lorraine Curry Department: Room: Gender: Female Fusion Operator: : 1985 Requested By: Kat Yang Order Number: [id number] Gabe MD: Velasquez Desai M.D. Measurements Intervals [place] Rate: 89 P: 36 NM: 182 QRS: 39 QRSD: 93 T: 25 QT: 384 QTc: 468 Interpretive Statements SINUS RHYTHM Nonspecific T wave Compared to ECG 07/19/2021 17:18:08 No significant changes Electronically Signed On 07-28-2021 22:20:12 STOCK SELECTOR by Velasquez Desai M.D. [id number]
[2021-07-28] MEDS: ketorolac 30 mg/mL INJ 15 MG IVP (21:40)
[2021-07-28 22:25] LABS: Troponin 5 2HR Delta 0 ABS# (0-10)
[2021-07-28 23:00] VITALS: BP 117/83; PULSE 82; RESP 16; O2SAT 96
== END 2021-07-28 23:02 | disposition home or self-care (01) ==
PROVIDERS: Emergency Provider Emergency Medicine; PCP Nurse Practitioner Family
DX: R07.9 Chest pain, unspecified (principal); Z79.84 Long term (current) use of oral hypoglycemic drugs; Z79.4 Long term (current) use of insulin; I10 Essential (primary) hypertension; E78.5 Hyperlipidemia, unspecified; E11.9 Type 2 diabetes mellitus without complications
CPT/HCPCS: 71045; 80053; 84484; 85025; 93005; 96374; 96375; 96376; 99284; J1885; J2270; J2405

== ENCOUNTER 2021-08-20 17:59 | Emergency (ER) | payer MEDICARE, MEDICAID, SELFPAY ==
[2021-08-20 18:18] VITALS: BP 136/69; PULSE 88; RESP 20; TEMP 36.7; O2SAT 97; BMI 63.8
[2021-08-20 19:45] VITALS: BP 125/80; PULSE 87; RESP 18; O2SAT 95
--- NOTE | 2021-08-20 19:45 | ED_ITS ---
HPI - Back Pain/Injury General: Chief Complaint: Back Pain/Injury Stated Complaint: fall Time Seen by Provider: 08/20/21 19:45 History of Present Illness: HPI Narrative: 36-year-old female comes in today for complaints of low back pain and right hip pain. Patient reports she was getting up from standing and slipped on a wet spot on the floor causing her to fall back onto her buttocks. Patient is morbidly obese with diabetes. Patient appears well. Patient appears in mild pain. Review of Systems General: Reports: 10 or more systems reviewed and unremarkable except in HPI and below Musc: Reports: other (Back pain and right hip pain) [facility] ED PFSH: Medical History (Updated 08/20/21 @ 20:36 by TONYA Best) Amenorrhea Asthma Benign essential HTN Bilateral chronic knee pain Bilateral leg edema Dyslipidemia GERD (gastroesophageal reflux disease) 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 Morbid obesity with BMI of 60.0-69.9, adult Muscle spasms of both lower extremities Pain management contract signed Prolonged depression Spinal stenosis, thoracic region Type 2 diabetes mellitus, with long-term current use of insulin Surgical History History of cholecystectomy Family History Father CAD (coronary artery disease) Diabetes Hypertension Family/Other Cancer Mother Diabetes Hypertension Social History Alcohol intake: never Caregiver/support person: Yes Household members: spouse and family Marital status: Current occupational status: disabled Current occupation: disabled History of recent travel: No Female Reproductive History: Date of last menstrual period: 06/08/21 Physical Exam Const: COMMON NORMALS: no acute distress and patient oriented x3 GENERAL APPEARANCE: cooperative HENMT: COMMON NORMALS: normocephalic HEAD & SCALP: normal to inspection and normocephalic Eye: GENERAL EYE: appearance normal, both eyes and all related structures Neck/C-Spine: COMMON NORMALS: full ROM Chest: COMMONS NORMALS: normal inspection of the chest Resp: COMMON NORMALS: normal respiratory effort EFFORT & INSPECTION: Yes able to speak in complete sentences Cardio: COMMON NORMALS: regular rate and regular rhythm RATE: regular rate RHYTHM: regular rhythm GI: COMMON NORMALS: non-tender : COMMON NORMALS: Yes no CVA tenderness BLADDER/KIDNEY EXAM: Yes no CVA tenderness Back/Pelvis: COMMON NORMALS: no CVA tenderness THORACIC SPINE/UPPER BACK: Yes paraspinal muscle tenderness LUMBAR SPINE/LOWER BACK: Yes paraspinal muscle tenderness Extremity: COMMON NORMALS: normal to inspection OTHER: Normal flexion extension of the right hip Neuro: COMMON NORMALS: patient oriented x3 and moves all extremities Psych: COMMON NORMALS: mental status grossly normal and cooperative Skin: COMMON NORMALS: no rashes or lesions noted GENERAL SKIN EXAM: no rashes or lesions noted Course Vital Signs: Vital signs: Vital Signs Temperature 98.0 F 08/20/21 18:18 Pulse Rate 87 08/20/21 19:45 Respiratory Rate 18 08/20/21 19:45 Blood Pressure 125/80 08/20/21 19:45 Pulse Oximetry 95 08/20/21 19:45 MDM - Back Pain/Injury MDM Narrative: Medical decision making narrative: 46-year-old female comes in for evaluation of injuries after a slip and fall. On exam there is some muscle tenderness in the left lower back and mid back. Patient also has some tenderness in the right lateral hip, but normal movement of the hip joint is noted. Differential diagnosis includes but not limited to muscle strain, contusion, fracture. X-ray of the hip and low back indicating no fractures or abnormality. Reviewed exam with patient with recommendations for treatment and follow-up. Patient was given 1 dose of orphenadrine for muscle spasm and 1 hydrocodone 5?325 for pain in the ER. Patient was recommended to follow-up with primary care for further instructions and recommendations. Discharge Plan Discharge Patient Disposition: Home Clinical Impression: Pain of right hip joint Fall Qualifiers: Encounter type: initial encounter Qualified Code(s): W19.XXXA - Unspecified fall, initial encounter Back pain Qualifiers: Back pain location: low back pain Chronicity: unspecified Back pain laterality: unspecified Sciatica presence: without sciatica Qualified Code(s): M54.50 - Low back pain, unspecified Condition: Stable Prescriptions: No Action amitriptyline 25 mg tablet 25 mg PO DAILY RF: 0 gabapentin 300 mg capsule 300 mg PO BID RF: 0 insulin lispro [Humalog U-100 Insulin] 100 unit/mL solution See Rx Instructions SUBCUT .COMPLEX Qty: 140 RF: 3 insulin aspart U-100 [Novolog U-100 Insulin aspart] 100 unit/mL solution See Rx Instructions SUBCUT .COMPLEX Qty: 140 RF: 3 (DME) 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 meter [Accu-Chek Kori Plus Meter] Misc See Rx Instructions .ROUTE .MEDSUPPLY Qty: 1 RF: 0 (DME) lancets [Accu-Chek Fastclix Lancet Drum] Misc See Rx Instructions .ROUTE .MEDSUPPLY Qty: 100 RF: 1 atenolol 25 mg tablet 25 mg PO BID Qty: 180 RF: 0 albuterol sulfate [Ventolin HFA] 90 mcg/actuation HFA aerosol inhaler 2 puff INHALATION Q6H PRN (Reason: Shortness Of Breath Or Wheezing) Qty: 8.5 RF: 1 (DME) Accu-Chek Kori Plus test strp Strip See Rx Instructions .ROUTE .MEDSUPPLY Qty: 100 RF: 1 citalopram 20 mg tablet 20 mg PO DAILY Qty: 90 RF: 0 lisinopril-hydrochlorothiazide 20-25 mg tablet 1 tab PO DAILY Qty: 90 RF: 0 spironolactone 25 mg tablet 25 mg PO DAILY Qty: 90 RF: 0 omeprazole 40 mg capsule,delayed release(DR/EC) 40 mg PO DAILY Qty: 90 RF: 0 montelukast [Singulair] 10 mg tablet 10 mg PO DAILY Qty: 90 RF: 1 (DME) FreeStyle Zackery 2 Sensor Kit See Rx Instructions .ROUTE .MEDSUPPLY Qty: 2 RF: 3 (DME) FreeStyle Zackery 2 [place] Misc See Rx Instructions .ROUTE .MEDSUPPLY Qty: 1 RF: 0 metformin 500 mg tablet extended release 24 hr 500 mg PO BID Qty: 180 RF: 3 Voltaren 1 % gel 4 g topical QID Qty: 100 RF: 0 hydrocodone-acetaminophen 5-325 mg tablet 1 tab PO Q8H PRN (Reason: pain (scale score 7-10)) Qty: 7 RF: 0 Discharge Orders: Discharge ED (Routine); Ordered 08/20/21 Ordered By: Herb Nathan Referrals: Mallory Berry, MANAGER EDITORIAL [Primary Care Provider] - Discharge Diet: Usual diet Discharge Activity: Increase activity as tolerated Patient Instructions: Musculoskeletal Pain (ED) Activity Restrictions/Additional Instructions: Activity as tolerated. Continue with routine medications as directed. Use acetaminophen for pain. Follow-up with primary care for further instruction. Return to ER for new concerns. Coding Level of Care Code ED Land Conservation Specialist for Leonela Escobedo
--- NOTE | 2021-08-20 19:50 | XRR_ITS ---
PROCEDURE INFORMATION: Exam: XR Lumbosacral Spine Exam date and time: 08/20/2021 7:50 PM Age: 36 years old Clinical indication: Injury or trauma; Fall; Blunt trauma (contusions or hematomas); Injury date: 08/20/2021; Patient HX: Low back pain; Additional info: Fall injury TECHNIQUE: Imaging protocol: XR of the lumbosacral spine. Views: 2 or 3 views. COMPARISON: CR XR lumbar spine 2-3V* [id number] 05/17/2021 4:56 PM FINDINGS: Bones/joints: There is normal vertebral body alignment. There are normal vertebral body heights. Disc spaces are symmetric and maintained. No fracture. The pedicles are intact. Soft tissues: Unremarkable. XR/XR lumbar spine 2-3V* [id number] IMPRESSION: No fracture.
--- NOTE | 2021-08-20 19:50 | XRR_ITS ---
PROCEDURE INFORMATION: Exam: XR Right Hip Exam date and time: 08/20/2021 7:50 PM Age: 36 years old Clinical indication: Hip pain; Right hip; Additional info: Injury, fall TECHNIQUE: Imaging protocol: XR Right hip. Views: 1 view hip with pelvis when performed. COMPARISON: CR (PELVIS, ) 07/19/2021 9:29 PM FINDINGS: Bones/joints: No acute fracture or dislocation. Soft tissues: Unremarkable. XR/XR hip RT 2-3V wo/w pel* [id number] IMPRESSION: No acute fracture or dislocation.
[2021-08-20] MEDS: orphenadrine 30 mg/mL Inj 2 mL 60 MG IM (20:01)
[2021-08-20] MEDS: HYDROcodone-acetaminophen 5-325 mg Tablet 1 TAB PO (20:52)
[2021-08-20 21:23] VITALS: PULSE 84; RESP 18
== END 2021-08-20 21:00 | disposition home or self-care (01) ==
PROVIDERS: Emergency Provider Nurse Practitioner Family; PCP Nurse Practitioner Family
DX: M54.50 Low back pain, unspecified (principal); M25.551 Pain in right hip; Z79.84 Long term (current) use of oral hypoglycemic drugs; Z79.4 Long term (current) use of insulin; I10 Essential (primary) hypertension; E78.5 Hyperlipidemia, unspecified; E11.9 Type 2 diabetes mellitus without complications
CPT/HCPCS: 72100; 73502; 96372; 99283; J2360

== ENCOUNTER → 2021-08-22 14:11 | Outpatient (BNVA) | payer MEDICARE, MEDICAID, SELFPAY | PROVIDERS: PCP Nurse Practitioner Family; Visit Provider Internal Medicine | DX: E11.40 Type 2 diabetes mellitus with diabetic neuropathy, unspecified (principal); K76.0 Fatty (change of) liver, not elsewhere classified; E66.01 Morbid (severe) obesity due to excess calories; Z68.44 Body mass index [BMI] 60.0-69.9, adult; Z79.4 Long term (current) use of insulin; F17.210 Nicotine dependence, cigarettes, uncomplicated | CPT/HCPCS: 99214 ==

== ENCOUNTER 2021-09-03 23:15 | Emergency (ER) | payer MEDICARE, MEDICAID, SELFPAY ==
[2021-09-03 23:27] VITALS: BP 143/93; PULSE 97; RESP 18; O2SAT 95; BMI 60.2
--- NOTE | 2021-09-04 00:05 | ED_ITS ---
HPI - Back Pain/Injury General: Chief Complaint: Back Pain/Injury Stated Complaint: middle of back hurts goes around ribs Time Seen by Provider: 09/03/21 23:58 Source: patient Mode of arrival: ambulatory Limitations: no limitations History of Present Illness: HPI Narrative: 36-year-old female has a history of morbid obesity along with chronic back pain. She states that she had been doing a lot of [place] and has been having thoracic back pain and thinks she strained a muscle. States that pain is worse with movement or lifting improved with rest states pain is currently 2 out of 10 denies any bowel bladder incontinence denies any radiation of her pain. Associated symptoms: Deny abdominal pain, chills, dysuria, fever(s), nausea or vomiting Review of Systems Const: Denies: fever(s), chills, body aches or change in appetite Eyes: Denies: blurry vision or eye discomfort ENMT: Denies: throat pain or dental pain Card: Denies: chest pain Resp: Denies: dyspnea GI: Denies: abdominal pain, nausea, vomiting or diarrhea : Denies: dysuria Musc: Reports: back pain Skin/Breast: Denies: rash Neuro: Denies: headache(s) Psych: Denies: depression Sunday/Lymph: Denies: easy bruising All/Imm: Denies: urticaria PFSH ED PFSH: Medical History (Updated 09/04/21 @ 00:07 by Kat Yang MD) Amenorrhea Asthma Benign essential HTN Bilateral chronic knee pain Bilateral leg edema Dyslipidemia GERD (gastroesophageal reflux disease) 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 Morbid obesity with BMI of 60.0-69.9, adult Muscle spasms of both lower extremities Pain management contract signed Prolonged depression Spinal stenosis, thoracic region Type 2 diabetes mellitus, with long-term current use of insulin Surgical History History of cholecystectomy Family History Father CAD (coronary artery disease) Diabetes Hypertension Family/Other Cancer Mother Diabetes Hypertension Social History Alcohol intake: never Caregiver/support person: Yes Household members: spouse and family Marital status: Current occupational status: disabled Current occupation: disabled History of recent travel: No Female Reproductive History: Date of last menstrual period: 08/20/21 Physical Exam Const: COMMON NORMALS: no acute distress, patient oriented x3 and healthy appearing HENMT: COMMON NORMALS: normocephalic and atraumatic HEAD & SCALP: normocephalic and atraumatic Eye: COMMON NORMALS: Equal, round and reactive pupils present and EOMs intact bilaterally PUPIL: Yes Equal, round and reactive pupils present Neck/C-Spine: COMMON NORMALS: full ROM and supple Chest: COMMONS NORMALS: normal inspection of the chest and normal palpation of entire chest wall Resp: COMMON NORMALS: normal respiratory effort, No retractions, No use of accessory muscles and clear to auscultation bilaterally AUSCULTATION: clear to auscultation bilaterally Cardio: COMMON NORMALS: regular rate, regular rhythm and No murmurs present (Cardio) RATE: regular rate RHYTHM: regular rhythm GI: COMMON NORMALS: Normal to inspection, nondistended, normoactive bowel sounds present, Soft to palpation, non-tender and no masses PALPATION: Yes Soft to palpation Back/Pelvis: OTHER: Paraspinal tenderness along thoracic spine Extremity: COMMON NORMALS: normal to inspection and full ROM Neuro: COMMON NORMALS: patient oriented x3, moves all extremities and no focal motor deficits Psych: COMMON NORMALS: mental status grossly normal, Normal thought process present and cooperative THOUGHT PROCESS: Normal thought process present Skin: COMMON NORMALS: no rashes or lesions noted and no wounds GENERAL SKIN EXAM: no rashes or lesions noted Course Vital Signs: Vital signs: Vital Signs Pulse Rate 97 09/03/21 23:27 Respiratory Rate 18 09/03/21 23:27 Blood Pressure 143/93 09/03/21 23:27 Pulse Oximetry 95 09/03/21 23:27 MDM - Back Pain/Injury MDM Narrative: Medical decision making narrative: Patient presents here with back pain thoracic region is likely muscle strain she well-appearing here no signs of cord compression or epidural abscess is able ambulate no bowel or bladder incontinence we will place her on Naprosyn Robaxin she is stable for discharge she is to follow-up with PCP and return if worsening. Discharge Plan Discharge Patient Disposition: Home Clinical Impression: Thoracic back pain Qualifiers: Chronicity: chronic Back pain laterality: bilateral Qualified Code(s): M54.6 - Pain in thoracic spine Condition: Stable Prescriptions: New methocarbamol 750 mg tablet 750 mg PO Q6H PRN (Reason: spasms) Qty: 20 RF: 0 Naprosyn 500 mg tablet 500 mg PO BID PRN (Reason: pain) Qty: 20 RF: 0 No Action amitriptyline 25 mg tablet 25 mg PO DAILY RF: 0 gabapentin 300 mg capsule 300 mg PO BID RF: 0 insulin lispro [Humalog U-100 Insulin] 100 unit/mL solution See Rx Instructions SUBCUT .COMPLEX Qty: 140 RF: 3 insulin aspart U-100 [Novolog U-100 Insulin aspart] 100 unit/mL solution See Rx Instructions SUBCUT .COMPLEX Qty: 140 RF: 3 (DME) 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 meter [Accu-Chek Kori Plus Meter] Misc See Rx Instructions .ROUTE .MEDSUPPLY Qty: 1 RF: 0 (DME) lancets [Accu-Chek Fastclix Lancet Drum] Misc See Rx Instructions .ROUTE .MEDSUPPLY Qty: 100 RF: 1 atenolol 25 mg tablet 25 mg PO BID Qty: 180 RF: 0 albuterol sulfate [Ventolin HFA] 90 mcg/actuation HFA aerosol inhaler 2 puff INHALATION Q6H PRN (Reason: Shortness Of Breath Or Wheezing) Qty: 8.5 RF: 1 (DME) Accu-Chek Kori Plus test strp Strip See Rx Instructions .ROUTE .MEDSUPPLY Qty: 100 RF: 1 citalopram 20 mg tablet 20 mg PO DAILY Qty: 90 RF: 0 lisinopril-hydrochlorothiazide 20-25 mg tablet 1 tab PO DAILY Qty: 90 RF: 0 spironolactone 25 mg tablet 25 mg PO DAILY Qty: 90 RF: 0 omeprazole 40 mg capsule,delayed release(DR/EC) 40 mg PO DAILY Qty: 90 RF: 0 montelukast [Singulair] 10 mg tablet 10 mg PO DAILY Qty: 90 RF: 1 (DME) FreeStyle Zackery 2 Sensor Kit See Rx Instructions .ROUTE .MEDSUPPLY Qty: 2 RF: 3 (DME) FreeStyle Zackery 2 [place] Misc See Rx Instructions .ROUTE .MEDSUPPLY Qty: 1 RF: 0 metformin 500 mg tablet extended release 24 hr 500 mg PO BID Qty: 180 RF: 3 Voltaren 1 % gel 4 g topical QID Qty: 100 RF: 0 hydrocodone-acetaminophen 5-325 mg tablet 1 tab PO Q8H PRN (Reason: pain (scale score 7-10)) Qty: 7 RF: 0 Discharge Orders: Discharge ED (Routine); Ordered 09/04/21 Ordered By: Kat Yang Referrals: Mallory Berry FNP [Primary Care Provider] - 1-3 days Discharge Diet: Advance as tolerated Discharge Activity: Resume usual activity Patient Instructions: Back Pain (ED) Coding Level of Care Code ED Replanting Machine Crewman for Leonela Escobedo
[2021-09-04] MEDS: HYDROcodone-acetaminophen 5-325 mg Tablet 1 TAB PO (00:12)
[2021-09-04 00:28] VITALS: RESP 21
== END 2021-09-04 00:36 | disposition home or self-care (01) ==
PROVIDERS: Emergency Provider Emergency Medicine; PCP Nurse Practitioner Family
DX: M54.6 Pain in thoracic spine (principal); Z79.4 Long term (current) use of insulin; Z79.84 Long term (current) use of oral hypoglycemic drugs; I10 Essential (primary) hypertension; E78.5 Hyperlipidemia, unspecified; E11.9 Type 2 diabetes mellitus without complications
CPT/HCPCS: 99281; 99283

== ENCOUNTER 2021-09-04 16:48 | Emergency (ER) | payer MEDICARE, MEDICAID, SELFPAY ==
[2021-09-04 17:07] VITALS: BP 135/75; PULSE 95; RESP 18; TEMP 37.2; O2SAT 96; BMI 58.4
--- NOTE | 2021-09-04 17:19 | ED_ITS ---
HPI - Back Pain/Injury General: Chief Complaint: Back Pain/Injury Stated Complaint: hurts to breath in ribs and chest Time Seen by Provider: 09/04/21 17:19 History of Present Illness: HPI Narrative: 36-year-old female presents emergency room complaining of midthoracic back pain. She was seen earlier today. She states she still having pain now she is not had any rash she cannot recall any precipitating events or trauma. Patient is super morbidly obese does have a history of some chronic back pain although she relates this is new. Stated began after she was cleaning some things up around her house but does not remember doing any pushing or pulling or lifting she is not had a fall she says in some time. She was started on Naprosyn and Robaxin and discharged home earlier today. Patient has no saddle anesthesia. No loss of bowel control no urinary retention. MD elicited complaint: back pain Pertinent past history: prior back pain Timing: constant Severity: moderate Quality: aching and spasming Location: lumbar spine and thoracic spine Radiation: none Exacerbating factors: movement and walking Relieving factors: supine Associated symptoms: Deny abdominal pain, arthralgias, chills, change in bowel habits, difficulty walking, dysuria, fatigue, fecal incontinence, fever(s), hematuria, myalgias, nausea, numbness, syncope, tingling/numbness/burning, urinary frequency, urinary urgency, vomiting or weakness Treatments prior to arrival: NSAIDS Review of Systems Const: Denies: fever(s), chills or fatigue ENMT: Denies: throat pain, ear or mastoid pain, nasal discharge or nasal congestion Card: Denies: syncope Resp: Denies: dyspnea, productive cough or non-productive cough GI: Denies: abdominal pain, nausea, vomiting, fecal incontinence or change in bowel habits : Denies: dysuria, urinary urgency or hematuria Skin/Breast: Denies: rash or pruritus Neuro: Denies: difficulty walking PFSH ED PFSH: Medical History Amenorrhea Asthma Benign essential HTN Bilateral chronic knee pain Bilateral leg edema Dyslipidemia GERD (gastroesophageal reflux disease) 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 Morbid obesity with BMI of 60.0-69.9, adult Muscle spasms of both lower extremities Pain management contract signed Prolonged depression Spinal stenosis, thoracic region Type 2 diabetes mellitus, with long-term current use of insulin Surgical History History of cholecystectomy Family History Father CAD (coronary artery disease) Diabetes Hypertension Family/Other Cancer Mother Diabetes Hypertension Social History Alcohol intake: never Caregiver/support person: Yes Household members: spouse and family Marital status: Current occupational status: disabled Current occupation: disabled History of recent travel: No Female Reproductive History: Date of last menstrual period: 08/20/21 Physical Exam Const: GENERAL APPEARANCE: cooperative and comfortable NUTRITIONAL APPEARANCE: obese morbidly obese ORIENTATION/CONSCIOUSNESS: Yes awake, Yes oriented to person, Yes oriented to place and Yes oriented to time HENMT: COMMON NORMALS: normocephalic, atraumatic and hearing grossly normal bilaterally HEAD & SCALP: normocephalic and atraumatic Resp: COMMON NORMALS: normal respiratory effort, No retractions, No use of accessory muscles and clear to auscultation bilaterally AUSCULTATION: clear to auscultation bilaterally Cardio: COMMON NORMALS: regular rate, regular rhythm and No murmurs present (Cardio) RATE: regular rate RHYTHM: regular rhythm GI: COMMON NORMALS: Soft to palpation and No hepatosplenomegaly present AUSCULTATION: Yes normoactive bowel sounds PALPATION: Yes Soft to palpation, No Tenderness to palpation present (GI), No Guarding due to palpation present (GI) and Yes No hepatosplenomegaly present Extremity: COMMON NORMALS: normal to inspection, capillary refill normal, no clubbing, cyanosis or edema, no calf tenderness and no pedal edema Neuro: SENSORIUM/ORIENTATION: Yes oriented to person, Yes oriented to place and Yes oriented to time Skin: COMMON NORMALS: no rashes or lesions noted GENERAL SKIN EXAM: no rashes or lesions noted Course Vital Signs: Vital signs: Vital Signs Temperature 99.0 F 09/04/21 17:07 Pulse Rate 95 09/04/21 17:07 Respiratory Rate 18 09/04/21 17:07 Blood Pressure 135/75 09/04/21 17:07 Pulse Oximetry 96 09/04/21 17:07 MDM - Back Pain/Injury MDM Narrative: Medical decision making narrative: Chronic back pain with no recent identifiable trauma. Continue previously prescribed anti-inflammatories. Have her use tizanidine and Medrol Dosepak advised that this will adversely affect her blood sugars. Should hold off on the methocarbamol use the tizanidine instead continue topical Voltaren were or the Naprosyn but should not use both simultaneously. Discharge Plan Discharge Patient Disposition: Home Clinical Impression: Acute thoracic back pain Condition: Stable Prescriptions: New Medrol (Ankush) 4 mg tablets,dose pack See Rx Instructions .ROUTE .COMPLEX Qty: 21 RF: 0 tizanidine 4 mg capsule 4 mg PO Q8H PRN (Reason: muscle spasticity) Qty: 20 RF: 0 No Action amitriptyline 25 mg tablet 25 mg PO DAILY RF: 0 gabapentin 300 mg capsule 300 mg PO BID RF: 0 insulin lispro [Humalog U-100 Insulin] 100 unit/mL solution See Rx Instructions SUBCUT .COMPLEX Qty: 140 RF: 3 insulin aspart U-100 [Novolog U-100 Insulin aspart] 100 unit/mL solution See Rx Instructions SUBCUT .COMPLEX Qty: 140 RF: 3 (DME) 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 meter [Accu-Chek Kori Plus Meter] Misc See Rx Instructions .ROUTE .MEDSUPPLY Qty: 1 RF: 0 (DME) lancets [Accu-Chek Fastclix Lancet Drum] Misc See Rx Instructions .ROUTE .MEDSUPPLY Qty: 100 RF: 1 atenolol 25 mg tablet 25 mg PO BID Qty: 180 RF: 0 albuterol sulfate [Ventolin HFA] 90 mcg/actuation HFA aerosol inhaler 2 puff INHALATION Q6H PRN (Reason: Shortness Of Breath Or Wheezing) Qty: 8.5 RF: 1 (DME) Accu-Chek Kori Plus test strp Strip See Rx Instructions .ROUTE .MEDSUPPLY Qty: 100 RF: 1 citalopram 20 mg tablet 20 mg PO DAILY Qty: 90 RF: 0 lisinopril-hydrochlorothiazide 20-25 mg tablet 1 tab PO DAILY Qty: 90 RF: 0 spironolactone 25 mg tablet 25 mg PO DAILY Qty: 90 RF: 0 omeprazole 40 mg capsule,delayed release(DR/EC) 40 mg PO DAILY Qty: 90 RF: 0 montelukast [Singulair] 10 mg tablet 10 mg PO DAILY Qty: 90 RF: 1 (DME) FreeStyle Zackery 2 Sensor Kit See Rx Instructions .ROUTE .MEDSUPPLY Qty: 2 RF: 3 (DME) FreeStyle Zackery 2 [place] Misc See Rx Instructions .ROUTE .MEDSUPPLY Qty: 1 RF: 0 metformin 500 mg tablet extended release 24 hr 500 mg PO BID Qty: 180 RF: 3 Voltaren 1 % gel 4 g topical QID Qty: 100 RF: 0 hydrocodone-acetaminophen 5-325 mg tablet 1 tab PO Q8H PRN (Reason: pain (scale score 7-10)) Qty: 7 RF: 0 methocarbamol 750 mg tablet 750 mg PO Q6H PRN (Reason: spasms) Qty: 20 RF: 0 Naprosyn 500 mg tablet 500 mg PO BID PRN (Reason: pain) Qty: 20 RF: 0 Discharge Orders: Discharge ED (Routine); Ordered 09/04/21 Ordered By: Selvin Mann Referrals: Mallory Berry FNP [Primary Care Provider] - Patient Instructions: Opioid Safety Coding Level of Care Code ED Outside Dealer Sales Representative for Leonela Escobedo
== END 2021-09-04 18:09 | disposition home or self-care (01) ==
PROVIDERS: Emergency Provider Family Medicine; PCP Nurse Practitioner Family
DX: M54.6 Pain in thoracic spine (principal); Z79.4 Long term (current) use of insulin; I10 Essential (primary) hypertension; E78.5 Hyperlipidemia, unspecified; E11.9 Type 2 diabetes mellitus without complications
CPT/HCPCS: 99281

== ENCOUNTER 2021-09-13 16:32 | Emergency (ER) | payer MEDICARE, MEDICAID, SELFPAY ==
[2021-09-13 16:51] VITALS: BP 133/74; PULSE 102; RESP 16; TEMP 36.5; O2SAT 95; BMI 60.2
--- NOTE | 2021-09-13 16:59 | XRR_ITS ---
PROCEDURE INFORMATION: Exam: XR Chest Exam date and time: 09/13/2021 4:59 PM Age: 36 years old Clinical indication: Cough; Additional info: Cp cough TECHNIQUE: Imaging protocol: XR of the chest. Views: 1 view. COMPARISON: CR XR chest 1V portable [id number] 07/28/2021 8:01 PM FINDINGS: Lungs: Unremarkable. No consolidation. Pleural spaces: Unremarkable. No pleural effusion. No pneumothorax. Heart/Mediastinum: Unremarkable. No cardiomegaly. Bones/joints: Unremarkable. XR/XR chest 1V portable [id number] IMPRESSION: No acute findings.
--- NOTE | 2021-09-13 16:59 | ECG_ITS ---
[facility] Test Date: 2021-09-13 Pat Name: Lorraine Curry Department: Room: Gender: Female Electrolysis Investigator: : 1985 Requested By: Selvin Peck Order Number: [id number] Gabe MD: Manju Pierce M.D. Measurements Intervals [place] Rate: 99 P: 44 AK: 185 QRS: 43 QRSD: 89 T: 36 QT: 354 QTc: 455 Interpretive Statements SINUS RHYTHM INTERPRETATION BASED ON A DEFAULT AGE OF 40 YEARS Compared to ECG 07/28/2021 21:36:22 No significant changes Electronically Signed On 09-13-2021 20:21:22 PARISH WORKER by Manju Pierce M.D. [id number]
[2021-09-13 17:21] LABS: Basophils % 0.3 %; Eosinophils # 0.2 10^3/uL (0.0-0.8); Eosinophils % 1.2 %; Hematocrit 40.3 % (37.0-47.0); Hemoglobin 13.1 g/dL (11.5-15.3); Lymphocytes # 1.8 10^3/uL (0.8-4.8); Lymphocytes % 11.1 %; Mean Corpuscular HGB Conc 32.5 g/dL (30.0-36.0); Mean Corpuscular Hemoglobin 29.1 pg (28.0-34.0); Mean Corpuscular Volume 89.6 fl (81-99); Monocytes # 0.9 10^3/uL (0.2-0.9); Monocytes % 5.8 %; Neutrophils # 12.58 10^3/uL (1.8-7.7); Neutrophils % 79.5 %; Nucleated Red Blood Cells % 0 %; Platelet Count 285 10^3/cmm (130-400); Red Cell Distribution Width 13.4 % (12.1-15.1); White Blood Count 15.8 10^3/uL (4.0-10.0)
[2021-09-13 17:41] LABS: Troponin(5th) Baseline 6 ng/L (0-10)
[2021-09-13 17:43] LABS: Alanine Aminotransferase 29 U/L (0-33); Albumin Level 3.9 g/dL (3.5-5.2); Alkaline Phosphatase 100 IU/L (35-105); Anion Gap 19.5 (5-19); Aspartate Amino Transferase 9 U/L (0-32); Blood Urea Nitrogen 18 mg/dL (6-20); Carbon Dioxide 20 mmol/L (22-29); Chloride 97 mmol/L (98-107); Globulin 2.8 g/dL (1.3-4.6); Glomerular Filtration Rate 114.4 mL/min (90-130); Glucose 279 mg/dL (65-115); Osmolality Calculated 286 mOsm/kg (285-295); Potassium 4.5 mmol/L (3.5-5.1); Sodium 132 mmol/L (136-145); Total Bilirubin 0.2 mg/dL (0.15-1.2); Total Protein 6.7 g/dL (6.6-8.7)
--- NOTE | 2021-09-13 19:45 | ED_ITS ---
HPI - Chest Pain General: Chief Complaint: Chest Pain Stated Complaint: Chest Pains x4 days Time Seen by Provider: 09/13/21 18:47 Source: patient Mode of arrival: ambulatory Limitations: no limitations History of Present Illness: HPI narrative: 36-year-old female who is well- known to the ER has history of morbid obesity states she has been having chest pain over the last 4 to 5 days. States been a sharp pain that waxes and wanes but is always there states in the center of her chest worse with palpation worse with activity as well. Denies being worse with inspiration denies any crushing pain or radiation to her neck denies any diaphoresis patient's in no respiratory distress here no hypoxia. She has no vomiting no diarrhea no abdominal pain. Associated symptoms: Deny abdominal pain, dyspnea, fever(s), nausea or vomiting Review of Systems Const: Denies: fever(s), chills, body aches or change in appetite Eyes: Denies: blurry vision or eye discomfort ENMT: Denies: throat pain or dental pain Card: Reports: chest pain Resp: Denies: dyspnea GI: Denies: abdominal pain, nausea, vomiting or diarrhea : Denies: dysuria Musc: Denies: neck pain or back pain Skin/Breast: Denies: rash Neuro: Denies: headache(s) Psych: Denies: depression Sunday/Lymph: Denies: easy bruising All/Imm: Denies: urticaria PFSH ED PFSH: Medical History (Updated 09/13/21 @ 19:49 by Kat Yang MD) Amenorrhea Asthma Benign essential HTN Bilateral chronic knee pain Bilateral leg edema Dyslipidemia GERD (gastroesophageal reflux disease) correction (current) use of opiate analgesic Morbid obesity with BMI of 60.0-69.9, adult Muscle spasms of both lower extremities Pain management contract signed Prolonged depression Spinal stenosis, thoracic region Type 2 diabetes mellitus, with long-term current use of insulin Surgical History History of cholecystectomy Family History Father CAD (coronary artery disease) Diabetes Hypertension Family/Other Cancer Mother Diabetes Hypertension Social History Alcohol intake: never Caregiver/support person: Yes Household members: spouse and family Marital status: Current occupational status: disabled Current occupation: disabled History of recent travel: No Female Reproductive History: Date of last menstrual period: 08/29/21 Physical Exam Const: COMMON NORMALS: no acute distress and patient oriented x3 NUTRITIONAL APPEARANCE: obese HENMT: COMMON NORMALS: normocephalic and atraumatic HEAD & SCALP: normocephalic and atraumatic Eye: COMMON NORMALS: Equal, round and reactive pupils present and EOMs intact bilaterally PUPIL: Yes Equal, round and reactive pupils present Neck/C-Spine: COMMON NORMALS: full ROM and supple Chest: COMMONS NORMALS: normal inspection of the chest and normal palpation of entire chest wall Resp: COMMON NORMALS: normal respiratory effort, No retractions, No use of accessory muscles and clear to auscultation bilaterally AUSCULTATION: clear to auscultation bilaterally Cardio: COMMON NORMALS: regular rate, regular rhythm and No murmurs present (Cardio) RATE: regular rate RHYTHM: regular rhythm GI: COMMON NORMALS: Normal to inspection, nondistended, normoactive bowel sounds present, Soft to palpation, non-tender and no masses PALPATION: Yes Soft to palpation Extremity: COMMON NORMALS: normal to inspection and full ROM Neuro: COMMON NORMALS: patient oriented x3, moves all extremities and no focal motor deficits Psych: COMMON NORMALS: mental status grossly normal, Normal thought process present and cooperative THOUGHT PROCESS: Normal thought process present Skin: COMMON NORMALS: no rashes or lesions noted and no wounds GENERAL SKIN EXAM: no rashes or lesions noted Course Vital Signs: Vital signs: Vital Signs Temperature 97.7 F 09/13/21 16:51 Pulse Rate 102 H 09/13/21 16:51 Respiratory Rate 16 09/13/21 16:51 Blood Pressure 133/74 09/13/21 16:51 Pulse Oximetry 95 09/13/21 16:51 MDM - Chest Pain MDM Narrative: Medical decision making narrative: Patient presents with chest pain for days is very atypical in nature she has no signs of acute coronary syndrome or pulmonary embolism patient has no signs of aortic dissection she is well-appearing here and stable for discharge. We will get her follow-up with cardiology she is to return if worsening she understands agrees to plan. Lab Data: Labs: Lab Results 09/13/21 09/13/2122 17:04 17:04 17:04 WBC 15.8 10^3/uL H 10 ^3/uL (4.0-10.0) RBC 4.50 10^6/uL 10^6 /uL (4.1-5.3) Hgb 13.1 g/dL g/dL (11.5-15.3) Hct 40.3 % % (37.0-47.0) MCV 89.6 fl fl (81-99) MCH 29.1 pg pg (28.0-34.0) MCHC 32.5 g/dL g/dL (30.0-36.0) RDW 13.4 % % (12.1-15.1) Plt Count 285 10^3/cmm 10^3 /cmm (130-400) MPV 11.0 fL H fL (7.4-10.4) Neut % (Auto) 79.5 % % Lymph % (Auto) 11.1 % % [place] % (Auto) 5.8 % % Eos % (Auto) 1.2 % % Baso % (Auto) 0.3 % % Neut # (Auto) 12.58 10^3/uL H 1 0^3/uL (1.8-7.7) Lymph # (Auto) 1.8 10^3/uL 10^3/ uL (0.8-4.8) [place] # (Auto) 0.9 10^3/uL 10^3/ uL (0.2-0.9) Eos # (Auto) 0.2 10^3/uL 10^3/ uL (0.0-0.8) Baso # (Auto) 0.0 10^3/uL 10^3/ uL (0.0-0.1) Nucleated RBC % (a uto) 0 % % Nucleated RBCs # 0.0 /100WBC /100W BC Sodium 132 mmol/L L mmol /L (136-145) Potassium 4.5 mmol/L mmol/L (3.5-5.1) Chloride 97 mmol/L L mmol/ L (98-107) Carbon Dioxide 20 mmol/L L mmol/ L (22-29) Anion Gap 19.5 H (5-19) BUN 18 mg/dL mg/dL (6-20) Creatinine 0.6 mg/dL mg/dL (0.5-0.9) GFR Calculation 114.4 mL/min mL/m in (90-130) Glucose 279 mg/dL H mg/dL (65-115) Calculated Osmolal ity 286 mOsm/kg mOsm/ kg (285-295) Calcium 9.0 mg/dL mg/dL (8.5-10.5) Total Bilirubin 0.2 mg/dL mg/dL (0.15-1.2) AST 9 U/L U/L (0-32) ALT 29 U/L U/L (0-33) Alkaline Phosphata se 100 IU/L IU/L (35-105) Troponin T Baselin e 6 ng/L ng/L (0-10) Total Protein 6.7 g/dL g/dL (6.6-8.7) Albumin 3.9 g/dL g/dL (3.5-5.2) Globulin 2.8 g/dL g/dL (1.3-4.6) Discharge Plan Discharge Patient Disposition: Home Clinical Impression: Chest pain Qualifiers: Chest pain type: unspecified Qualified Code(s): R07.9 - Chest pain, unspecified Condition: Stable Prescriptions: No Action amitriptyline 25 mg tablet 25 mg PO DAILY RF: 0 gabapentin 300 mg capsule 300 mg PO BID RF: 0 insulin lispro [Humalog U-100 Insulin] 100 unit/mL solution See Rx Instructions SUBCUT .COMPLEX Qty: 140 RF: 3 (DME) 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 meter [Accu-Chek Kori Plus Meter] Misc See Rx Instructions .ROUTE .MEDSUPPLY Qty: 1 RF: 0 (DME) lancets [Accu-Chek Fastclix Lancet Drum] Misc See Rx Instructions .ROUTE .MEDSUPPLY Qty: 100 RF: 1 atenolol 25 mg tablet 25 mg PO BID Qty: 180 RF: 0 albuterol sulfate [Ventolin HFA] 90 mcg/actuation HFA aerosol inhaler 2 puff INHALATION Q6H PRN (Reason: Shortness Of Breath Or Wheezing) Qty: 8.5 RF: 1 (DME) Accu-Chek Kori Plus test strp Strip See Rx Instructions .ROUTE .MEDSUPPLY Qty: 100 RF: 1 citalopram 20 mg tablet 20 mg PO DAILY Qty: 90 RF: 0 lisinopril-hydrochlorothiazide 20-25 mg tablet 1 tab PO DAILY Qty: 90 RF: 0 spironolactone 25 mg tablet 25 mg PO DAILY Qty: 90 RF: 0 omeprazole 40 mg capsule,delayed release(DR/EC) 40 mg PO DAILY Qty: 90 RF: 0 montelukast [Singulair] 10 mg tablet 10 mg PO DAILY Qty: 90 RF: 1 (DME) FreeStyle Zackery 2 Sensor Kit See Rx Instructions .ROUTE .MEDSUPPLY Qty: 2 RF: 3 (DME) FreeStyle Zackery 2 [place] Misc See Rx Instructions .ROUTE .MEDSUPPLY Qty: 1 RF: 0 metformin 500 mg tablet extended release 24 hr 500 mg PO BID Qty: 180 RF: 3 insulin aspart U-100 [Novolog U-100 Insulin aspart] 100 unit/mL solution See Rx Instructions SUBCUT .COMPLEX Qty: 140 RF: 3 Voltaren 1 % gel 4 g topical QID Qty: 100 RF: 0 hydrocodone-acetaminophen 5-325 mg tablet 1 tab PO Q8H PRN (Reason: pain (scale score 7-10)) Qty: 7 RF: 0 Medrol (Ankush) 4 mg tablets,dose pack See Rx Instructions .ROUTE .COMPLEX Qty: 21 RF: 0 tizanidine 4 mg capsule 4 mg PO Q8H PRN (Reason: muscle spasticity) Qty: 20 RF: 0 methocarbamol 750 mg tablet 750 mg PO Q6H PRN (Reason: spasms) Qty: 20 RF: 0 Naprosyn 500 mg tablet 500 mg PO BID PRN (Reason: pain) Qty: 20 RF: 0 Discharge Orders: Discharge ED (Routine); Ordered 09/13/21 Ordered By: Kat Yang Referrals: Mallory Berry, INCOME TAX CONSULTANT [Primary Care Provider] - 1-3 days Discharge Diet: Advance as tolerated Discharge Activity: Resume usual activity Patient Instructions: Chest Pain (ED) Coding Level of Care Code ED Housing Management Officer for Leonela Escobedo
[2021-09-13 20:04] VITALS: PULSE 96; RESP 20; O2SAT 97
[2021-09-13 20:08] LABS: Troponin 5 2HR Delta 0 ABS# (0-10)
--- NOTE | 2021-09-14 12:48 | PC.SOCIAL ---
Addendum entered by Peyton Simpson 12/27/21 12:51: Appointment was rescheduled for 12.17.21 - patient did attend appointment at [facility]. Original Note: appointment made for patient to see Dr. Desai 11-08-21 @1030. unable to reach patient. voicemail left for patient to return call.
== END 2021-09-13 20:04 | disposition home or self-care (01) ==
PROVIDERS: Family Medicine; Emergency Provider Emergency Medicine; PCP Nurse Practitioner Family
DX: R07.9 Chest pain, unspecified (principal); Z79.84 Long term (current) use of oral hypoglycemic drugs; Z79.4 Long term (current) use of insulin; I10 Essential (primary) hypertension; E78.5 Hyperlipidemia, unspecified; E11.9 Type 2 diabetes mellitus without complications
CPT/HCPCS: 36415; 71045; 80053; 84484; 85025; 93005; 99283

== ENCOUNTER 2021-09-26 00:16 | Emergency (ER) | payer MEDICARE, MEDICAID, SELFPAY ==
[2021-09-26 00:26] VITALS: BP 132/83; PULSE 98; RESP 25; TEMP 37.2; O2SAT 94; BMI 63.8
--- NOTE | 2021-09-26 00:31 | XRR_ITS ---
PROCEDURE INFORMATION: Exam: XR Chest Exam date and time: 09/26/2021 12:31 AM Age: 36 years old Clinical indication: Shortness of breath; Patient HX: C/O SOB. TECHNIQUE: Imaging protocol: XR of the chest. Views: 1 view. COMPARISON: CR (CHEST, ) 09/13/2021 5:33 PM FINDINGS: Lungs: No CHF/pulmonary edema. Poor inspiration somewhat limits evaluation, especially of the lung bases. Visible lungs appear essentially clear. Pleural spaces: No visible pneumothorax. No definite pleural fluid. Heart/Mediastinum: Heart size is upper range of normal. Bones/joints: No significant acute finding. XR/XR chest 1V portable [id number] IMPRESSION: 1. No definite CHF or pneumonia. 2. Other findings discussed above.
--- NOTE | 2021-09-26 00:31 | XRR_ITS ---
PROCEDURE INFORMATION: Exam: XR Left Knee Exam date and time: 09/26/2021 12:31 AM Age: 36 years old Clinical indication: Injury or trauma; Fall; Blunt trauma; Patient HX: Patient fell injurying left knee. C/O pain. ; Additional info: Fall/injury TECHNIQUE: Imaging protocol: XR Left knee. Views: 3 views. COMPARISON: No relevant prior studies available. FINDINGS: Bones/joints: There is no acute fracture or dislocation. If symptoms persist, follow-up imaging in several days may be useful to exclude an occult fracture. No other significant acute bone or joint abnormality. Mild narrowing of the medial knee joint compartment with, with mild disc margin bony spurring. Soft tissues: No definite evidence for knee joint effusion. XR/XR knee LT 3V* [id number] IMPRESSION: No acute fracture or dislocation.
--- NOTE | 2021-09-26 00:32 | ECG_ITS ---
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 Measurements Intervals [place] Rate: 93 P: 43 GA: 186 QRS: 41 QRSD: 95 T: 43 QT: 361 QTc: 450 Interpretive Statements SINUS RHYTHM Compared to ECG 09/13/2021 16:58:34 No significant changes Electronically Signed On 09-27-2021 19:27:16 LATIN PROFESSOR by Manju Pierce M.D. [id number]
--- NOTE | 2021-09-26 00:35 | ED_ITS ---
HPI - General Adult General: Chief complaint: Shortness of Breath/Dyspnea Stated complaint: Injury: Dizzy Fell SOB Time Seen by Provider: 09/26/21 00:18 Source: patient Mode of arrival: wheelchair Limitations: no limitations History of Present Illness: HPI narrative: Patient is a 36-year-old female well-known to the ED here following a fall. Patient tells me she had gotten up from bed to walk to the bathroom when she became dizzy and fell. She states she struck her left knee on the wall. Patient states she has been having episodes of dizziness for approximately 3 to 4 months now. She states she has followed up with her primary care provider who is trying to determine the cause. She currently does not complain of chest pain or palpitations. She states dizziness is mainly with positional changes. She does complain of some shortness of breath today. Patient does have a history of asthma. She states she has been using her inhaler today without much relief. She is an everyday smoker has a chronic smoker's cough but reports this has not changed. No orthopnea or PND. No fevers. No other URI/COVID-like symptoms. Denies any lower extremity swelling or calf pain. Relieving factors: rest Exacerbating factors: other (changes in position ) Associated symptoms: Reports dyspnea; Deny chest pain, headache(s), malaise, nausea, rash, palpitations, syncope or vomiting Treatments prior to arrival: none Review of Systems Const: Denies: fever(s), chills, body aches, fatigue or malaise Eyes: Denies: change in vision or blurry vision Card: Denies: chest pain, palpitations, irregular heart rhythm, edema, swelling of feet/ankles, lightheadedness, syncope, pre-syncope, dyspnea on exertion, orthopnea, leg pain with exertion or acrocyanosis Resp: Reports: dyspnea and productive cough (chronic cough from smoking-at baseline per patient); Denies: wheezing, pain on inspiration, change in phlegm color or hemoptysis GI: Denies: abdominal pain, nausea, vomiting, heartburn or diarrhea : Denies: flank pain or dysuria Musc: Reports: joint pain (L knee pain); Denies: neck pain, back pain, extremity pain, extremity swelling, joint redness, joint warmth or limited range of motion Skin/Breast: Denies: rash Neuro: Reports: dizziness; Denies: headache(s), numbness in extremities, sensory changes or vertigo PFS ED PFSH: Medical History (Updated 09/26/21 @ 00:57 by KAMRON Boo) Amenorrhea Asthma Benign essential HTN Bilateral chronic knee pain Bilateral leg edema Dyslipidemia GERD (gastroesophageal reflux disease) residential (current) use of opiate analgesic Morbid obesity with BMI of 60.0-69.9, adult Muscle spasms of both lower extremities Pain management contract signed Prolonged depression Spinal stenosis, thoracic region Type 2 diabetes mellitus, with long-term current use of insulin Surgical History History of cholecystectomy Family History Father CAD (coronary artery disease) Diabetes Hypertension Family/Other Cancer Mother Diabetes Hypertension Social History Alcohol intake: never Caregiver/support person: Yes Household members: spouse and family Marital status: Current occupational status: disabled Current occupation: disabled History of recent travel: No Female Reproductive History: Date of last menstrual period: 08/29/21 Physical Exam Const: COMMON NORMALS: no acute distress, patient oriented x3, no limitations and alert GENERAL APPEARANCE: cooperative NUTRITIONAL APPEARANCE: obese morbidly obese (pts BMI is over 60) ORIENTATION/CONSCIOUSNESS: Yes awake, Yes oriented to person, Yes oriented to place and Yes oriented to time HENMT: COMMON NORMALS: normocephalic and atraumatic HEAD & SCALP: normal to inspection, normocephalic and atraumatic Neck/C-Spine: COMMON NORMALS: full ROM CERVICAL SPINE: No pain with cervical ROM and No Cervical spine tenderness Resp: COMMON NORMALS: normal respiratory effort and clear to auscultation bilaterally AUSCULTATION: clear to auscultation bilaterally Cardio: COMMON NORMALS: regular rate and regular rhythm RATE: regular rate RHYTHM: regular rhythm Back/Pelvis: COMMON NORMALS: thoracic and lumbar spine normal to inspection, no thoracic nor lumbar tenderness and thoraco-lumbar ROM normal Extremity: COMMON NORMALS: full ROM, capillary refill normal, no clubbing, cyanosis or edema, no calf tenderness and no pedal edema GENERAL: Yes normal exam except as noted LEFT LOWER EXTREMITY: Yes knee joint Left knee: Yes neurovascular exam (normal) OTHER: pt has area of ecchymosis to L lateral knee; no obvious knee swelling appreciated but anatomy is difficult secondary to morbid obesity; no obvious bony deformity; NV intact; she maintains fairly good ROM Neuro: HAWK COMA SCALE: document GCS findings [place] coma scale eye opening: Spontaneous Hawk coma scale verbal response: Orientated Hawk coma scale motor response: Obey commands Hawk coma scale total score: 15 COMMON NORMALS: patient oriented x3, CN's II-XII intact bilaterally, moves all extremities, no focal motor deficits and no sensory deficits noted SENSORIUM/ORIENTATION: Yes alert, Yes oriented to person, Yes oriented to place and Yes oriented to time Skin: NARRATIVE SKIN EXAM: mild ecchymosis L knee TRAUMA: no lacerations or abrasions Course Vital Signs: Vital signs: Vital Signs Temperature 99 F 09/26/21 00:26 Pulse Rate 98 09/26/21 00:26 Respiratory Rate 25 H 09/26/21 00:26 Blood Pressure 132/83 09/26/21 00:26 Pulse Oximetry 94 09/26/21 00:26 MDM - General Adult MDM Narrative: Medical decision making narrative: Patient here with complaints of dizziness and fall. She has been having dizziness over the past several months. Denies chest pain or palpitations. Dizziness is worse upon standing. She is reportedly being worked up for this through her primary care provider. Discussed rule of 5s at home. Patient was seen in the ED 2 weeks ago with fairly unremarkable labs. She reportedly has outpatient labs from PCP ordered for tomorrow. EKG here normal. CXR showing no changes from previous. XR of her lef t knee is normal. We will go ahead and obtain send out COVID secondary to her shortness of breath complaint. She has a Wells score of 0. I don't feel repeating labs at this time would be overly beneficial as her dizziness complaint has been present for several months now. She is stable to continue seeing PCP for this. Imaging Data^: XR L knee: My impression: NAD CXR: My impression: NAD EKG Data^: EKG 1: EKG interpretation date: 09/26/21 EKG interpretation time: 00:43 Interpretation: Sinus rhythm Rate [address] elevation or depression changes noted Computer generated interpretation: Chest X-Ray 09/26/21 00:31 IMPRESSION: 1. No definite CHF or pneumonia. 2. Other findings discussed above. Knee X-Ray 09/26/21 00:31 IMPRESSION: No acute fracture or dislocation. Discharge Plan Discharge Patient Disposition: Home Clinical Impression: Postural dizziness with near syncope Contusion of left knee Qualifiers: Encounter type: initial encounter Qualified Code(s): S80.02XA - Contusion of left knee, initial encounter Dyspnea Qualifiers: Dyspnea type: unspecified Qualified Code(s): R06.00 - Dyspnea, unspecified Condition: Stable Prescriptions: No Action gabapentin 300 mg capsule 300 mg PO BID Qty: 90 RF: 0 amitriptyline 25 mg tablet 25 mg PO DAILY Qty: 90 RF: 3 insulin lispro [Humalog U-100 Insulin] 100 unit/mL solution See Rx Instructions SUBCUT .COMPLEX Qty: 140 RF: 3 (DME) 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 meter [Accu-Chek Kori Plus Meter] Misc See Rx Instructions .ROUTE .MEDSUPPLY Qty: 1 RF: 0 (DME) lancets [Accu-Chek Fastclix Lancet Drum] Misc See Rx Instructions .ROUTE .MEDSUPPLY Qty: 100 RF: 1 atenolol 25 mg tablet 25 mg PO BID Qty: 180 RF: 0 albuterol sulfate [Ventolin HFA] 90 mcg/actuation HFA aerosol inhaler 2 puff INHALATION Q6H PRN (Reason: Shortness Of Breath Or Wheezing) Qty: 8.5 RF: 1 (DME) Accu-Chek Kori Plus test strp Strip See Rx Instructions .ROUTE .MEDSUPPLY Qty: 100 RF: 1 lisinopril-hydrochlorothiazide 20-25 mg tablet 1 tab PO DAILY Qty: 90 RF: 0 spironolactone 25 mg tablet 25 mg PO DAILY Qty: 90 RF: 0 omeprazole 40 mg capsule,delayed release(DR/EC) 40 mg PO DAILY Qty: 90 RF: 0 montelukast [Singulair] 10 mg tablet 10 mg PO DAILY Qty: 90 RF: 1 (DME) FreeStyle Zackery 2 Sensor Kit See Rx Instructions .ROUTE .MEDSUPPLY Qty: 2 RF: 3 (DME) FreeStyle Zackery 2 [place] Misc See Rx Instructions .ROUTE .MEDSUPPLY Qty: 1 RF: 0 insulin aspart U-100 [Novolog U-100 Insulin aspart] 100 unit/mL solution See Rx Instructions SUBCUT .COMPLEX Qty: 140 RF: 3 (DME) Omnipod Dash 5 Pack Pod Cartridge See Rx Instructions .Route Qty: 5 RF: 3 citalopram 20 mg tablet 20 mg PO DAILY Qty: 90 RF: 0 metformin 500 mg tablet extended release 24 hr 500 mg PO BID Qty: 180 RF: 3 Voltaren 1 % gel 4 g topical QID Qty: 100 RF: 0 hydrocodone-acetaminophen 5-325 mg tablet 1 tab PO Q8H PRN (Reason: pain (scale score 7-10)) Qty: 7 RF: 0 Medrol (Ankush) 4 mg tablets,dose pack See Rx Instructions .ROUTE .COMPLEX Qty: 21 RF: 0 tizanidine 4 mg capsule 4 mg PO Q8H PRN (Reason: muscle spasticity) Qty: 20 RF: 0 methocarbamol 750 mg tablet 750 mg PO Q6H PRN (Reason: spasms) Qty: 20 RF: 0 Naprosyn 500 mg tablet 500 mg PO BID PRN (Reason: pain) Qty: 20 RF: 0 Discharge Orders: Discharge ED (Routine); Ordered 09/26/21 Ordered By: Sissy Luke Referrals: Flores Mcmahon FNP-C [Primary Care Provider] - Coding Level of Care Code ED Extrusion Manager for Chg Fwd Exam Comprehensive
--- NOTE | 2021-09-26 00:51 | PC.NURSE ---
patient arrival with c/o feeling dizzy like the room was spinning and falling hitting her left knee against the baseboard, also reports SOB at this time. states for the last 3-4 months this has been happening and her primary doctor is aware states last episode was a month ago but her caught her that time. tele in place.
[2021-09-26] MEDS: acetaminophen 500 mg Tablet 1000 MG PO (01:29)
[2021-09-27 21:23] LABS: Quest SARS-CoV-2 RNA DETECTED (NOT DETECTED)
== END 2021-09-26 01:30 | disposition home or self-care (01) ==
PROVIDERS: Emergency Provider Physician Assistant; PCP Nurse Practitioner Family
DX: R42 Dizziness and giddiness (principal); U07.1 COVID-19; S80.02XA Contusion of left knee, initial encounter; W19.XXXA Unspecified fall, initial encounter; I10 Essential (primary) hypertension; J45.909 Unspecified asthma, uncomplicated; K21.9 Gastro-esophageal reflux disease without esophagitis; E78.5 Hyperlipidemia, unspecified; E66.01 Morbid (severe) obesity due to excess calories; Z68.44 Body mass index [BMI] 60.0-69.9, adult; R05.3 Chronic cough; E11.9 Type 2 diabetes mellitus without complications; Z79.84 Long term (current) use of oral hypoglycemic drugs; Z79.4 Long term (current) use of insulin
CPT/HCPCS: 71045; 73562; 87635; 93005; 99283

== ENCOUNTER 2021-10-03 20:39 | Emergency (ER) | payer MEDICARE, MEDICAID, SELFPAY ==
[2021-10-03 20:54] VITALS: BP 118/65; PULSE 105; RESP 24; TEMP 36.7; O2SAT 97; BMI 63.8
--- NOTE | 2021-10-03 21:05 | ED_ITS ---
HPI - Back Pain/Injury General: Chief Complaint: Back Pain/Injury Stated Complaint: Abd Pain Time Seen by Provider: 10/03/21 21:01 Source: patient Mode of arrival: ambulatory Limitations: no limitations History of Present Illness: 36-year-old female history of morbid obesity very well-known to the ER states she been having back pain last night that is wrapping around her abdomen she has a history of chronic back pain but states she did does normally have this abdominal pain states that severe in nature rates an 8 out of 10 denies any worsening improving factors denies any vomiting or diarrhea denies any fevers. Associated symptoms: Reports abdominal pain and nausea; Deny chills, dysuria or fever(s) Review of Systems Const: Denies: fever(s), chills, body aches or change in appetite Eyes: Denies: blurry vision or eye discomfort ENMT: Denies: throat pain or dental pain Card: Denies: chest pain Resp: Denies: dyspnea GI: Reports: abdominal pain and nausea : Denies: dysuria Musc: Denies: neck pain or back pain Skin/Breast: Denies: rash Neuro: Denies: headache(s) Psych: Denies: depression Sunday/Lymph: Denies: easy bruising All/Imm: Denies: urticaria PFSH ED PFSH: Medical History (Updated 10/04/21 @ 00:01 by ) Amenorrhea Asthma Benign essential HTN Bilateral chronic knee pain Bilateral leg edema Dyslipidemia GERD (gastroesophageal reflux disease) 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 Morbid obesity with BMI of 60.0-69.9, adult Muscle spasms of both lower extremities Pain management contract signed Prolonged depression Spinal stenosis, thoracic region Type 2 diabetes mellitus, with long-term current use of insulin Surgical History History of cholecystectomy Family History Father CAD (coronary artery disease) Diabetes Hypertension Family/Other Cancer Mother Diabetes Hypertension Social History Alcohol intake: never Caregiver/support person: Yes Household members: spouse and family Marital status: Current occupational status: disabled Current occupation: disabled History of recent travel: No Female Reproductive History: Date of last menstrual period: 08/29/21 Physical Exam Const: COMMON NORMALS: no acute distress, patient oriented x3 and healthy appearing NUTRITIONAL APPEARANCE: obese HENMT: COMMON NORMALS: normocephalic and atraumatic HEAD & SCALP: normocephalic and atraumatic Eye: COMMON NORMALS: Equal, round and reactive pupils present and EOMs intact bilaterally PUPIL: Yes Equal, round and reactive pupils present Neck/C-Spine: COMMON NORMALS: full ROM and supple Chest: COMMONS NORMALS: normal inspection of the chest and normal palpation of entire chest wall Resp: COMMON NORMALS: normal respiratory effort, No retractions, No use of accessory muscles and clear to auscultation bilaterally AUSCULTATION: clear to auscultation bilaterally Cardio: COMMON NORMALS: regular rate, regular rhythm and No murmurs present (Cardio) RATE: regular rate RHYTHM: regular rhythm GI: COMMON NORMALS: Normal to inspection, nondistended, normoactive bowel sounds present, Soft to palpation and no masses PALPATION: Yes Soft to palpation OTHER: diffuse tenderness Extremity: COMMON NORMALS: normal to inspection and full ROM Neuro: COMMON NORMALS: patient oriented x3, moves all extremities and no focal motor deficits Psych: COMMON NORMALS: mental status grossly normal, Normal thought process present and cooperative THOUGHT PROCESS: Normal thought process present Skin: COMMON NORMALS: no rashes or lesions noted and no wounds GENERAL SKIN EXAM: no rashes or lesions noted Course Vital Signs: Vital signs: Vital Signs Temperature 98.1 F 10/03/21 20:54 Pulse Rate 99 10/03/21 23:34 Respiratory Rate 21 H 10/03/21 23:34 Blood Pressure 116/79 10/03/21 23:34 Pulse Oximetry 91 10/03/21 23:34 MDM - Back Pain/Injury Medical Decision Making Lorraine presents with back pain along with abdominal pain chronic in nature CT showed old cyst she has no tenderness no signs of torsion she feels improved after Reglan she is stable for discharge is to follow-up with PCP and return if worsening. Labs : 10/03/21 21:30 10/03/21 21:30 Radiology Impressions Abdomen/Pelvis CT 10/03/21 21:43 IMPRESSION: 1. 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 No change since 2019. No inflammatory changes. However if symptoms lateralizes to this region, torsion would be a possibility 2. Hepatic steatosis. Laboratory Results WBC 17.5 10^3/uL (4.0-10.0) H 10/03/21: RBC 5.08 10^6/uL (4.1-5.3) 10/03/21: Hgb 14.5 g/dL (11.5-15.3) 10/03/21: Hct 43.9 % (37.0-47.0) 10/03/21: MCV 86.4 fl (81-99) 10/03/21: MCH 28.5 pg (28.0-34.0) 10/03/21: MCHC 33.0 g/dL (30.0-36.0) 10/03/21: RDW 13.1 % (12.1-15.1) 10/03/21: Plt Count 320 10^3/cmm (130-400) 10/03/21: MPV 10.6 fL (7.4-10.4) H 10/03/21: Neut % (Auto) 80.7 % 10/03/21: Lymph % (Auto) 10.4 % 10/03/21: Stone % (Auto) 6.1 % 10/03/21: Eos % (Auto) 1.1 % 10/03/21: Baso % (Auto) 0.3 % 10/03/21: Neut # (Auto) 14.12 10^3/uL (1.8-7.7) H 10/03/21: Lymph # (Auto) 1.8 10^3/uL (0.8-4.8) 10/03/21: Stone # (Auto) 1.1 10^3/uL (0.2-0.9) H 10/03/21: Eos # (Auto) 0.2 10^3/uL (0.0-0.8) 10/03/21: Baso # (Auto) 0.1 10^3/uL (0.0-0.1) 10/03/21: Nucleated RBC % (auto) 0 % 01/26/22 21:30 Nucleated RBCs # 0.0 /100WBC 10/03/21 21:30 Sodium 131 mmol/L (136-145) L 10/03/21 21:30 Potassium 4.6 mmol/L (3.5-5.1) 10/03/21 21:30 Chloride 94 mmol/L (98-107) L 10/03/21 21: Carbon Dioxide 24 mmol/L (22-29) 10/03/21: Anion Gap 17.6 (5-19) 10/03/21 21: BUN 18 mg/dL (6-20) 10/03/21 21: Creatinine 1.3 mg/dL (0.5-0.9) H 10/03/21 21:30 GFR Calculation 46.9 mL/min (90-130) L 10/03/21: Glucose 200 mg/dL (65-115) H 10/03/21: Calculated Osmolality 280 mOsm/kg (285-295) L 10/03/21: Calcium 8.7 mg/dL (8.5-10.5) 10/03/21 21: Total Bilirubin 0.5 mg/dL (0.15-1.2) 10/03/21 21: AST 19 U/L (0-32) 10/03/21 21: ALT 27 U/L (0-33) 10/03/21 21: Alkaline Phosphatase 92 IU/L (35-105) 10/03/21 21: Total Protein 7.1 g/dL (6.6-8.7) 10/03/21: Albumin 4.2 g/dL (3.5-5.2) 10/03/21 21: Globulin 2.9 g/dL (1.3-4.6) 10/03/21 21: Lipase 27 U/L (13-60) 10/03/21 21:30 HCG, Qual Negative (Negative) 10/03/21 21:30 Discharge Plan Discharge Patient Disposition: Home Clinical Impression: Back pain, Vomiting Condition: Stable Prescriptions: New Reglan 10 mg tablet 10 mg PO Q6H PRN (Reason: nausea and vomiting) Qty: 20 0RF No Action amitriptyline 25 mg tablet 25 mg PO DAILY Qty: 90 3RF insulin lispro [Humalog U-100 Insulin] 100 unit/mL solution See Rx Instructions SUBCUT .COMPLEX Qty: 140 3RF Rx Instructions: maximum 150 units per day through pump (DME) 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 meter [Accu-Chek Kori Plus Meter] Misc See Rx Instructions .ROUTE .MEDSUPPLY Qty: 1 0RF Rx Instructions: As directed (DME) lancets [Accu-Chek Fastclix Lancet Drum] Misc See Rx Instructions .ROUTE .MEDSUPPLY Qty: 100 1RF Rx Instructions: TWICE DAILY atenolol 25 mg tablet 25 mg PO BID Qty: 180 0RF albuterol sulfate [Ventolin HFA] 90 mcg/actuation HFA aerosol inhaler 2 puff INHALATION Q6H PRN (Reason: Shortness Of Breath Or Wheezing) Qty: 8.5 1RF (DME) Accu-Chek Kori Plus test strp Strip See Rx Instructions .ROUTE .MEDSUPPLY Qty: 100 1RF Rx Instructions: twice daily lisinopril-hydrochlorothiazide 20-25 mg tablet 1 tab PO DAILY Qty: 90 0RF spironolactone 25 mg tablet 25 mg PO DAILY Qty: 90 0RF omeprazole 40 mg capsule,delayed release(DR/EC) 40 mg PO DAILY Qty: 90 0RF (DME) FreeStyle Zackery 2 Sensor Kit See Rx Instructions .ROUTE .MEDSUPPLY Qty: 2 3RF Rx Instructions: monitors blood sugars (DME) FreeStyle Zackery 2 [facility] [place] See Rx Instructions .ROUTE .MEDSUPPLY Qty: 1 0RF Rx Instructions: used to read sensers insulin aspart U-100 [Novolog U-100 Insulin aspart] 100 unit/mL solution See Rx Instructions SUBCUT .COMPLEX Qty: 140 3RF Rx Instructions: maximum 200 units/day through pump (DME) Omnipod Dash 5 Pack Pod Cartridge See Rx Instructions .Route Qty: 5 3RF Rx Instructions: As directed citalopram 20 mg tablet 20 mg PO DAILY Qty: 90 0RF metformin 500 mg tablet extended release 24 hr 500 mg PO BID Qty: 180 3RF Rx Instructions: Take one tablet by mouth twice a day. gabapentin 300 mg capsule 300 mg PO TID Qty: 240 3RF montelukast [Singulair] 10 mg tablet 10 mg PO DAILY Qty: 90 1RF Voltaren 1 % gel 4 g topical QID Qty: 100 0RF Rx Instructions: apply to single knee, ankle, foot; for foot includes sole/toes/top of foot hydrocodone-acetaminophen 5-325 mg tablet 1 tab PO Q8H PRN (Reason: pain (scale score 7-10)) Qty: 7 0RF Medrol (Ankush) 4 mg tablets,dose pack See Rx Instructions .ROUTE .COMPLEX Qty: 21 0RF Rx Instructions: orally per package directions tizanidine 4 mg capsule 4 mg PO Q8H PRN (Reason: muscle spasticity) Qty: 20 0RF methocarbamol 750 mg tablet 750 mg PO Q6H PRN (Reason: spasms) Qty: 20 0RF Naprosyn 500 mg tablet 500 mg PO BID PRN (Reason: pain) Qty: 20 0RF Discharge Orders: Discharge ED (Routine); Ordered 10/03/21 Ordered By: Kat Yang Referrals: Flores Mcmahon, RESEARCH LABORATORY TECHNICIAN-C [Primary Care Provider] - 1-3 days Discharge Diet: Advance as tolerated Discharge Activity: Resume usual activity Patient Instructions: Back Pain (ED) Coding Level of Care Code ED Host/Hostess Head for Chg Fwd Exam Comprehensive
[2021-10-03] MEDS: ondansetron 2 mg/ML SDV 2 mL 4 MG IVP (21:30)
[2021-10-03] MEDS: morphine 4 mg/mL SDV 1 mL IVP (21:30)
[2021-10-03 21:40] LABS: Basophils # 0.1 10^3/uL (0.0-0.1); Basophils % 0.3 %; Eosinophils # 0.2 10^3/uL (0.0-0.8); Eosinophils % 1.1 %; Hematocrit 43.9 % (37.0-47.0); Hemoglobin 14.5 g/dL (11.5-15.3); Lymphocytes # 1.8 10^3/uL (0.8-4.8); Lymphocytes % 10.4 %; Mean Corpuscular Hemoglobin 28.5 pg (28.0-34.0); Mean Corpuscular Volume 86.4 fl (81-99); Mean Platelet Volume 10.6 fL (7.4-10.4); Monocytes # 1.1 10^3/uL (0.2-0.9); Monocytes % 6.1 %; Neutrophils # 14.12 10^3/uL (1.8-7.7); Neutrophils % 80.7 %; Nucleated Red Blood Cells % 0 %; Platelet Count 320 10^3/cmm (130-400); Red Blood Count 5.08 10^6/uL (4.1-5.3); Red Cell Distribution Width 13.1 % (12.1-15.1); White Blood Count 17.5 10^3/uL (4.0-10.0)
--- NOTE | 2021-10-03 21:43 | CTR_ITS ---
PROCEDURE INFORMATION: Exam: CT Abdomen And Pelvis With Contrast Exam date and time: 10/03/2021 9:43 PM Age: 36 years old Clinical indication: Nausea and other: Diarrhea, difficulty urinating; Abdominal pain; Localized; Lower; Prior surgery; Surgery type: Gb; Additional info: Abd pain TECHNIQUE: Imaging protocol: Computed tomography of the abdomen and pelvis with contrast. Radiation optimization: All CT scans at this facility use at least one of these dose optimization techniques: automated exposure control; mA and/or kV adjustment per patient size (includes targeted exams where dose is matched to clinical indication); or iterative reconstruction. Contrast material: OMNI 300; Contrast volume: 95 ml; Contrast route: INTRAVENOUS (IV); COMPARISON: CT abdomen pelvis w con* [id number] 05/23/2020 3:57 PM, pelvic ultrasound from 05/26/2020. RADIATION DOSE METRICS: Total DLP (mGy-cm): 1822.12 FINDINGS: Liver: The liver is diffusely fatty and mildly enlarged. Gallbladder and bile ducts: The gallbladder is surgically absent. Pancreas: Normal. No ductal dilation. Spleen: Normal. No splenomegaly. Adrenal glands: Normal. No mass. Kidneys and ureters: Normal. No hydronephrosis. Stomach and bowel: Unremarkable. No obstruction. No mucosal thickening. Appendix: No evidence of appendicitis. Intraperitoneal space: In the left mid abdomen deep to the umbilicus there is a chronic cystic lesion measuring 8.8 x7.6 x 9.1 cm, unchanged since May 2020. This may arise from the left ovary. No acute abdominopelvic findings. Vasculature: Unremarkable. No abdominal aortic aneurysm. Lymph nodes: Unremarkable. No enlarged lymph nodes. Urinary bladder: Unremarkable as visualized. Reproductive: See Intraperitoneal space finding. Bones/joints: Unremarkable. No acute fracture. Soft tissues: Chronic laxity of the mid abdominal wall but without any trapped hernia. CT/CT abdomen pelvis w con* [id number] IMPRESSION: 1. 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 No change since 2019. No inflammatory changes. However if symptoms lateralizes to this region, torsion would be a possibility 2. Hepatic steatosis.
[2021-10-03] MEDS: sodium chloride 0.9% 1,000 ML 999 ML IV (21:53)
[2021-10-03 21:58] LABS: Alanine Aminotransferase 27 U/L (0-33); Albumin Level 4.2 g/dL (3.5-5.2); Alkaline Phosphatase 92 IU/L (35-105); Anion Gap 17.6 (5-19); Aspartate Amino Transferase 19 U/L (0-32); Blood Urea Nitrogen 18 mg/dL (6-20); Calcium 8.7 mg/dL (8.5-10.5); Carbon Dioxide 24 mmol/L (22-29); Chloride 94 mmol/L (98-107); Globulin 2.9 g/dL (1.3-4.6); Glomerular Filtration Rate 46.9 mL/min (90-130); Glucose 200 mg/dL (65-115); Lipase 27 U/L (13-60); Osmolality Calculated 280 mOsm/kg (285-295); Potassium 4.6 mmol/L (3.5-5.1); Sodium 131 mmol/L (136-145); Total Bilirubin 0.5 mg/dL (0.15-1.2); Total Protein 7.1 g/dL (6.6-8.7)
[2021-10-03 22:08] LABS: HCG, Serum Qual Negative (Negative)
[2021-10-03] MEDS: iohexol 300 mg/mL 100 mL Btl IV (22:18)
[2021-10-03 22:43] VITALS: BP 108/62; PULSE 101; RESP 19; O2SAT 94
[2021-10-03] MEDS: diphenhydrAMINE 50 mg/mL SDV 1mL IVP (23:29)
[2021-10-03] MEDS: metoclopramide 5 mg/mL SDV 2 mL 10 MG IVP (23:31)
[2021-10-03 23:34] VITALS: BP 116/79; PULSE 99; RESP 21; O2SAT 91
== END 2021-10-04 00:13 | disposition home or self-care (01) ==
PROVIDERS: Emergency Provider Emergency Medicine; PCP Nurse Practitioner Family
DX: M54.9 Dorsalgia, unspecified (principal); R11.11 Vomiting without nausea; Z79.4 Long term (current) use of insulin; Z79.84 Long term (current) use of oral hypoglycemic drugs; I10 Essential (primary) hypertension; E78.5 Hyperlipidemia, unspecified; E11.9 Type 2 diabetes mellitus without complications
CPT/HCPCS: 74177; 80053; 83690; 84703; 85025; 96361; 96374; 96375; 99283; J1200; J2270; J2405; J2765; J7030; Q9967

== ENCOUNTER → 2021-11-06 10:59 | Outpatient (BNVA) | payer MEDICARE, MEDICAID, SELFPAY | PROVIDERS: PCP Nurse Practitioner Family; Visit Provider Nurse Practitioner Family | DX: N17.9 Acute kidney failure, unspecified (principal); N83.8 Other noninflammatory disorders of ovary, fallopian tube and broad ligament; R60.1 Generalized edema; I10 Essential (primary) hypertension; K21.9 Gastro-esophageal reflux disease without esophagitis; E66.01 Morbid (severe) obesity due to excess calories; Z68.44 Body mass index [BMI] 60.0-69.9, adult; E11.9 Type 2 diabetes mellitus without complications; Z79.4 Long term (current) use of insulin; Z71.6 Tobacco abuse counseling | CPT/HCPCS: 80053; 80061; 81003; 83550; 84443; 85025 ==

== ENCOUNTER 2021-11-07 18:47 | Emergency (ER) | payer MEDICARE, MEDICAID, SELFPAY ==
[2021-11-07 19:22] VITALS: BP 113/65; PULSE 89; RESP 18; TEMP 36.9; O2SAT 94; BMI 63.8
--- NOTE | 2021-11-07 20:53 | ED_ITS ---
HPI - Abdominal Pain General: Chief Complaint: Abdominal Pain Stated Complaint: ABD Pain Left Side Time Seen by Provider: 11/07/21 20:50 Source: patient Mode of arrival: ambulatory Limitations: no limitations History of Present Illness: 36-year-old female is well-known to ER has a long history of morbid obesity she also has a history of a left ovarian cyst as cause her chronic abdominal pain states she started having abdominal pain again recently she states that sharp in nature rates it a 7 out of 10 denies any vomiting diarrhea denies any worst improving factors. Associated Symptoms: Denies chills, dysuria and fever(s) Related Data: Date of Last Menstrual Period: 08/29/21 Review of Systems Const: Denies: fever(s), chills, body aches or change in appetite Eyes: Denies: blurry vision or eye discomfort ENMT: Denies: throat pain or dental pain Card: Denies: chest pain Resp: Denies: dyspnea GI: Reports: abdominal pain : Denies: dysuria Musc: Denies: neck pain or back pain Skin/Breast: Denies: rash Neuro: Denies: headache(s) Psych: Denies: depression Sunday/Lymph: Denies: easy bruising All/Imm: Denies: urticaria PFSH ED PFSH: Medical History (Updated 11/07/21 @ 21:40 by Kat Yang MD) Amenorrhea Asthma Benign essential HTN Bilateral chronic knee pain Bilateral leg edema Dyslipidemia GERD (gastroesophageal reflux disease) 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 Morbid obesity with BMI of 60.0-69.9, adult Muscle spasms of both lower extremities Pain management contract signed Prolonged depression Spinal stenosis, thoracic region Type 2 diabetes mellitus, with long-term current use of insulin Surgical History History of cholecystectomy Family History Father CAD (coronary artery disease) Diabetes Hypertension Family/Other Cancer Mother Diabetes Hypertension Social History Alcohol intake: never Caregiver/support person: Yes Household members: spouse and family Marital status: Current occupational status: disabled Current occupation: disabled History of recent travel: No Female Reproductive History: Date of last menstrual period: 08/29/21 Physical Exam Const: COMMON NORMALS: no acute distress and patient oriented x3 NUTRITIONAL APPEARANCE: obese HENMT: COMMON NORMALS: normocephalic and atraumatic HEAD & SCALP: normocephalic and atraumatic Eye: COMMON NORMALS: Equal, round and reactive pupils present and EOMs intact bilaterally PUPIL: Yes Equal, round and reactive pupils present Neck/C-Spine: COMMON NORMALS: full ROM and supple Chest: COMMONS NORMALS: normal inspection of the chest and normal palpation of entire chest wall Resp: COMMON NORMALS: normal respiratory effort, No retractions, No use of accessory muscles and clear to auscultation bilaterally AUSCULTATION: clear to auscultation bilaterally Cardio: COMMON NORMALS: regular rate, regular rhythm and No murmurs present (Cardio) RATE: regular rate RHYTHM: regular rhythm GI: COMMON NORMALS: Normal to inspection, nondistended, normoactive bowel sounds present, Soft to palpation and no masses PALPATION: Yes Soft to palpation and Yes Tenderness to palpation present (GI) Details: LLQ Extremity: COMMON NORMALS: normal to inspection and full ROM Neuro: COMMON NORMALS: patient oriented x3, moves all extremities and no focal motor deficits Psych: COMMON NORMALS: mental status grossly normal, Normal thought process present and cooperative THOUGHT PROCESS: Normal thought process present Skin: COMMON NORMALS: no rashes or lesions noted and no wounds GENERAL SKIN EXAM: no rashes or lesions noted Course Vital Signs: Vital signs: Vital Signs Temperature 98.5 F 11/07/21 19:22 Pulse Rate 87 11/07/21 21:35 Respiratory Rate 24 H 11/07/21 21:35 Blood Pressure 160/105 11/07/21 21:35 Pulse Oximetry 95 11/07/21 21:35 MDM - Abdominal Pain Medical Decision Making Patient presents with abdominal pain is chronic in nature exam here is benign and I believe she needs a emergent CT at this time her pain is improved after IV meds she is to follow-up with PCP and return if worsening. Lab Data : 11/07/21 21:00 11/07/21 21:00 Labs/Radiology: Laboratory Results WBC 17.1 10^3/uL (4.0-10.0) H 11/07/21 21:00 RBC 4.49 10^6/uL (4.1-5.3) 11/07/21 21:00 Hgb 12.6 g/dL (11.5-15.3) 11/07/21 21:00 Hct 39.7 % (37.0-47.0) 11/07/21 21:00 MCV 88.4 fl (81-99) 11/07/21 21:00 MCH 28.1 pg (28.0-34.0) 11/07/21 21:00 MCHC 31.7 g/dL (30.0-36.0) 11/07/21 21:00 RDW 14.0 % (12.1-15.1) 11/07/21 21:00 Plt Count 318 10^3/cmm (130-400) 11/07/21 21:00 MPV 10.7 fL (7.4-10.4) H 11/07/21 21:00 Neut % (Auto) 80.3 % 11/07/21 21:00 Lymph % (Auto) 11.1 % 11/07/21 21:00 [place] % (Auto) 4.8 % 11/07/21 21:00 Eos % (Auto) 1.6 % 11/07/21 21:00 Baso % (Auto) 0.4 % 11/07/21 21:00 Neut # (Auto) 13.77 10^3/uL (1.8-7.7) H 11/07/21 21:00 Lymph # (Auto) 1.9 10^3/uL (0.8-4.8) 11/07/21 21:00 [place] # (Auto) 0.8 10^3/uL (0.2-0.9) 11/07/21 21:00 Eos # (Auto) 0.3 10^3/uL (0.0-0.8) 11/07/21 21:00 Baso # (Auto) 0.1 10^3/uL (0.0-0.1) 11/07/21 21:00 Nucleated RBC % (auto) 0 % 11/07/21 21:00 Nucleated RBCs # 0.0 /100WBC 11/07/21 21:00 Sodium 135 mmol/L (136-145) L 11/07/21 21:00 Potassium 4.5 mmol/L (3.5-5.1) 11/07/21 21:00 Chloride 99 mmol/L (98-107) 11/07/21 21:00 Carbon Dioxide 22 mmol/L (22-29) 11/07/21 21:00 Anion Gap 18.5 (5-19) 11/07/21 21:00 BUN 20 mg/dL (6-20) 11/07/21 21:00 Creatinine 0.8 mg/dL (0.5-0.9) 11/07/21 21:00 GFR Calculation 82.1 mL/min (90-130) L 11/07/21 21:00 Glucose 207 mg/dL (65-115) H 11/07/21 21:00 Calculated Osmolality 289 mOsm/kg (285-295) 11/07/21 21:00 Calcium 9.2 mg/dL (8.5-10.5) 11/07/21 21:00 Total Bilirubin 0.3 mg/dL (0.15-1.2) 11/07/21 21:00 AST 12 U/L (0-32) 11/07/21 21:00 ALT 27 U/L (0-33) 11/07/21 21:00 Alkaline Phosphatase 95 IU/L (35-105) 11/07/21 21:00 Total Protein 7.4 g/dL (6.6-8.7) 11/07/21 21:00 Albumin 3.8 g/dL (3.5-5.2) 11/07/21 21:00 Globulin 3.6 g/dL (1.3-4.6) 11/07/21 21:00 Lipase 26 U/L (13-60) 11/07/21 21:00 HCG, Qual Negative (Negative) 11/07/21 21:00 Urine Color Yellow (Yellow) 11/07/21 21:30 Urine Appearance Clear (CLEAR) 11/07/21 21:30 Urine pH 5 (5-7) 11/07/21 21:30 Ur Specific [place] 1.015 (1.005-1.030) 11/07/21 21:30 Urine Protein Neg (Negative) 11/07/21 21:30 Urine Glucose (UA) Norm (Normal) 11/07/21 21:30 Urine Ketones Negative (Negative) 11/07/21 21:30 Urine Blood Neg (Negative) 11/07/21 21:30 Urine Nitrate Negative (Negative) 11/07/21 21:30 Urine Bilirubin Neg (Negative) 11/07/21 21:30 Urine Urobilinogen Norm mg/dL (Negative) 11/07/21 21:30 Ur Leukocyte Esterase Negative (Negative) 11/07/21 21:30 Discharge Plan Discharge Patient Disposition: Home Clinical Impression: Abdominal pain Qualifiers: Abdominal location: left lower quadrant Qualified Code(s): R10.32 - Left lower quadrant pain Condition: Stable Prescriptions: No Action insulin lispro [Humalog U-100 Insulin] 100 unit/mL solution See Rx Instructions SUBCUT .COMPLEX Qty: 140 3RF Rx Instructions: maximum 150 units per day through pump [place] DayQuil Cold-Flu Relief 5-10-325 mg capsule PO 0RF doxycycline monohydrate 100 mg capsule 100 mg PO BID Qty: 14 0RF spironolactone 50 mg tablet 50 mg PO DAILY Qty: 30 0RF ferrous gluconate 324 mg (37.5 mg iron) tablet 324 mg PO DAILY Qty: 30 0RF (DME) 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 meter [Accu-Chek Kori Plus Meter] Misc See Rx Instructions .ROUTE .MEDSUPPLY Qty: 1 0RF Rx Instructions: As directed (DME) lancets [Accu-Chek Fastclix Lancet Drum] Misc See Rx Instructions .ROUTE .MEDSUPPLY Qty: 100 1RF Rx Instructions: TWICE DAILY (DME) Accu-Chek Kori Plus test strp Strip See Rx Instructions .ROUTE .MEDSUPPLY Qty: 100 1RF Rx Instructions: twice daily omeprazole 40 mg capsule,delayed release(DR/EC) 40 mg PO DAILY Qty: 90 0RF (DME) FreeStyle Zackery 2 Sensor Kit See Rx Instructions .ROUTE .MEDSUPPLY Qty: 2 3RF Rx Instructions: monitors blood sugars (DME) FreeStyle Zackery 2 [place] Misc See Rx Instructions .ROUTE .MEDSUPPLY Qty: 1 0RF Rx Instructions: used to read sensers (DME) [employer] Dash 5 Pack Pod Cartridge See Rx Instructions .Route Qty: 5 3RF Rx Instructions: As directed metformin 500 mg tablet extended release 24 hr 500 mg PO BID Qty: 180 3RF Rx Instructions: Take one tablet by mouth twice a day. gabapentin 300 mg capsule 300 mg PO TID Qty: 240 3RF montelukast [Singulair] 10 mg tablet 10 mg PO DAILY Qty: 90 1RF insulin aspart U-100 [Novolog U-100 Insulin aspart] 100 unit/mL solution See Rx Instructions SUBCUT .COMPLEX Qty: 140 3RF Rx Instructions: maximum 200 units/day through pump amitriptyline 25 mg tablet 25 mg PO DAILY Qty: 90 3RF atenolol 25 mg tablet 25 mg PO BID Qty: 180 0RF lisinopril-hydrochlorothiazide 20-25 mg tablet 1 tab PO DAILY Qty: 90 0RF citalopram 20 mg tablet 20 mg PO DAILY Qty: 90 0RF albuterol sulfate [Ventolin HFA] 90 mcg/actuation HFA aerosol inhaler 2 puff INHALATION Q6H PRN (Reason: Shortness Of Breath Or Wheezing) Qty: 8.5 1RF Voltaren 1 % gel 4 g topical QID Qty: 100 0RF Rx Instructions: apply to single knee, ankle, foot; for foot includes sole/toes/top of foot hydrocodone-acetaminophen 5-325 mg tablet 1 tab PO Q8H PRN (Reason: pain (scale score 7-10)) Qty: 7 0RF tizanidine 4 mg capsule 4 mg PO Q8H PRN (Reason: muscle spasticity) Qty: 20 0RF methocarbamol 750 mg tablet 750 mg PO Q6H PRN (Reason: spasms) Qty: 20 0RF Naprosyn 500 mg tablet 500 mg PO BID PRN (Reason: pain) Qty: 20 0RF Reglan 10 mg tablet 10 mg PO Q6H PRN (Reason: nausea and vomiting) Qty: 20 0RF Discharge Orders: Discharge ED (Routine); Ordered 11/07/21 Ordered By: Kat Yang Referrals: Flores Mcmahon FNP-C [Primary Care Provider] - 1-3 days Discharge Diet: Advance as tolerated Discharge Activity: Resume usual activity Patient Instructions: Abdominal Pain (ED) Coding Level of Care Code ED Disability Representative for Chg Fwd Exam Comprehensive
[2021-11-07] MEDS: sodium chloride 0.9% 1,000 ML 999 ML IV (21:01)
[2021-11-07] MEDS: morphine 4 mg/mL SDV 1 mL IVP ×2 (21:01→22:17)
[2021-11-07 21:08] LABS: Basophils # 0.1 10^3/uL (0.0-0.1); Basophils % 0.4 %; Eosinophils # 0.3 10^3/uL (0.0-0.8); Eosinophils % 1.6 %; Hematocrit 39.7 % (37.0-47.0); Hemoglobin 12.6 g/dL (11.5-15.3); Lymphocytes # 1.9 10^3/uL (0.8-4.8); Lymphocytes % 11.1 %; Mean Corpuscular HGB Conc 31.7 g/dL (30.0-36.0); Mean Corpuscular Hemoglobin 28.1 pg (28.0-34.0); Mean Corpuscular Volume 88.4 fl (81-99); Mean Platelet Volume 10.7 fL (7.4-10.4); Monocytes # 0.8 10^3/uL (0.2-0.9); Monocytes % 4.8 %; Neutrophils # 13.77 10^3/uL (1.8-7.7); Neutrophils % 80.3 %; Nucleated Red Blood Cells % 0 %; Platelet Count 318 10^3/cmm (130-400); Red Blood Count 4.49 10^6/uL (4.1-5.3); White Blood Count 17.1 10^3/uL (4.0-10.0)
[2021-11-07 21:33] LABS: Alanine Aminotransferase 27 U/L (0-33); Albumin Level 3.8 g/dL (3.5-5.2); Alkaline Phosphatase 95 IU/L (35-105); Anion Gap 18.5 (5-19); Aspartate Amino Transferase 12 U/L (0-32); Blood Urea Nitrogen 20 mg/dL (6-20); Calcium 9.2 mg/dL (8.5-10.5); Carbon Dioxide 22 mmol/L (22-29); Chloride 99 mmol/L (98-107); Creatinine Clr Calc Pharmacy 151.3511; Globulin 3.6 g/dL (1.3-4.6); Glomerular Filtration Rate 82.1 mL/min (90-130); Glucose 207 mg/dL (65-115); Lipase 26 U/L (13-60); Osmolality Calculated 289 mOsm/kg (285-295); Potassium 4.5 mmol/L (3.5-5.1); Sodium 135 mmol/L (136-145); Total Bilirubin 0.3 mg/dL (0.15-1.2); Total Protein 7.4 g/dL (6.6-8.7)
[2021-11-07 21:35] VITALS: BP 160/105; PULSE 87; RESP 24; O2SAT 95
[2021-11-07 21:37] LABS: Add Urine Microscopic? NO; Charge for UA Resulting for Rev
[2021-11-07 21:41] LABS: HCG, Serum Qual Negative (Negative)
[2021-11-07 21:41] LABS: Bilirubin Urine Neg (Negative); Blood Urine Neg (Negative); Glucose Urine UA Norm (Normal); Ketones Urine Negative (Negative); Leukocyte Esterase Urine Negative (Negative); Nitrate Urine Negative (Negative); Protein Urine Neg (Negative); Specific Gravity, Urine 1.015 (1.005-1.030); Urine Appearance Clear (CLEAR); Urine Color Yellow (Yellow); Urobilinogen Urine Norm (Negative); pH Urine 5 (5-7)
[2021-11-07 22:17] VITALS: RESP 24
== END 2021-11-07 22:20 | disposition home or self-care (01) ==
PROVIDERS: Emergency Provider Emergency Medicine; PCP Nurse Practitioner Family
DX: R10.32 Left lower quadrant pain (principal); Z79.84 Long term (current) use of oral hypoglycemic drugs; Z79.4 Long term (current) use of insulin; I10 Essential (primary) hypertension; E78.5 Hyperlipidemia, unspecified; E11.9 Type 2 diabetes mellitus without complications
CPT/HCPCS: 80053; 81003; 83690; 84703; 85025; 96361; 96374; 96376; 99284; J2270; J7030

== ENCOUNTER 2021-11-27 17:48 | Emergency (ER) | payer MEDICARE, MEDICAID, SELFPAY ==
--- NOTE | 2021-11-27 17:50 | ECG_ITS ---
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 Measurements Intervals [place] Rate: 102 P: 48 MA: 176 QRS: 55 QRSD: 109 T: 33 QT: 351 QTc: 458 Interpretive Statements SINUS TACHYCARDIA Compared to ECG 09/26/2021 00:43:57 Sinus rhythm no longer present Electronically Signed On 11-28-2021 17:55:02 CDT by Manju Pierce M.D. [id number]
--- NOTE | 2021-11-27 17:50 | XRR_ITS ---
PROCEDURE INFORMATION: Exam: XR Chest Exam date and time: 11/27/2021 5:12 PM Age: 36 years old Clinical indication: Pain; Angina pectoris; Additional info: Cp TECHNIQUE: Imaging protocol: XR of the chest. Views: 1 view. COMPARISON: CR (CHEST, ) 09/26/2021 12:37 AM FINDINGS: Lungs: Unremarkable. No consolidation. Pleural spaces: Unremarkable. No pleural effusion. No pneumothorax. Heart/Mediastinum: Unremarkable. No cardiomegaly. Bones/joints: Unremarkable. XR/XR chest 1V portable [id number] IMPRESSION: No acute findings.
[2021-11-27 17:53] VITALS: BP 156/79; PULSE 101; RESP 20; TEMP 36.6; O2SAT 94; BMI 61.9
[2021-11-27 18:25] VITALS: BP 175/96; PULSE 99; RESP 16; O2SAT 94
[2021-11-27 18:43] VITALS: RESP 22
[2021-11-27] MEDS: ondansetron 2 mg/ML SDV 2 mL 4 MG IVP (18:43)
[2021-11-27] MEDS: morphine 4 mg/mL SDV 1 mL IVP (18:43)
[2021-11-27 18:45] LABS: Basophils # 0.1 10^3/uL (0.0-0.1); Basophils % 0.5 %; Eosinophils # 0.2 10^3/uL (0.0-0.8); Eosinophils % 1.6 %; Hematocrit 44.6 % (37.0-47.0); Hemoglobin 14.2 g/dL (11.5-15.3); Lymphocytes # 2.3 10^3/uL (0.8-4.8); Lymphocytes % 17.7 %; Mean Corpuscular HGB Conc 31.8 g/dL (30.0-36.0); Mean Corpuscular Hemoglobin 27.5 pg (28.0-34.0); Mean Corpuscular Volume 86.3 fl (81-99); Monocytes # 0.9 10^3/uL (0.2-0.9); Monocytes % 6.8 %; Neutrophils # 9.55 10^3/uL (1.8-7.7); Neutrophils % 72.3 %; Nucleated Red Blood Cells % 0 %; Platelet Count 347 10^3/cmm (130-400); Red Blood Count 5.17 10^6/uL (4.1-5.3); Red Cell Distribution Width 13.6 % (12.1-15.1); White Blood Count 13.2 10^3/uL (4.0-10.0)
[2021-11-27 18:46] VITALS: BP 118/72; PULSE 99; RESP 18; O2SAT 94
--- NOTE | 2021-11-27 18:47 | PC.NURSE ---
PT PLACED ON BEDSIDE CARDIAC, BP AND O2 MONITOR.
--- NOTE | 2021-11-27 19:02 | W.ED.CHESTPA ---
HPI - Chest Pain General: Chief Complaint: Chest Pain Stated Complaint: Chest pain, down right arm Time Seen by Provider: 11/27/21 17:57 Source: patient Mode of arrival: ambulatory Limitations: no limitations History of Present Illness: 34-year-old female is very well-known to ER states that she was taking foam out of a dog bed and exert herself has been having some sharp chest pain since then. States it is much worse with palpation improved with rest. She denies any radiation denies any shortness of breath denies any vomiting or diarrhea. Associated symptoms: Deny abdominal pain, dyspnea, fever(s), nausea or vomiting Review of Systems Const: Denies: fever(s), chills, body aches or change in appetite Eyes: Denies: blurry vision or eye discomfort ENMT: Denies: throat pain or dental pain Card: Reports: chest pain Resp: Denies: dyspnea GI: Denies: abdominal pain, nausea, vomiting or diarrhea : Denies: dysuria Musc: Denies: neck pain or back pain Skin/Breast: Denies: rash Neuro: Denies: headache(s) Psych: Denies: depression Sunday/Lymph: Denies: easy bruising All/Imm: Denies: urticaria PFSH ED PFSH: Medical History (Updated 11/27/21 @ 19:34 by Kat Yang MD) Amenorrhea Asthma Benign essential HTN Bilateral chronic knee pain Bilateral leg edema Dyslipidemia 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 Morbid obesity with BMI of 60.0-69.9, adult Muscle spasms of both lower extremities Pain management contract signed Prolonged depression Spinal stenosis, thoracic region Type 2 diabetes mellitus, with long-term current use of insulin Surgical History History of cholecystectomy Family History Father CAD (coronary artery disease) Diabetes Hypertension Family/Other Cancer Mother Diabetes Hypertension Social History Alcohol intake: never Caregiver/support person: Yes Household members: spouse and family Marital status: Current occupational status: disabled Current occupation: disabled History of recent travel: No Female Reproductive History: Date of last menstrual period: 08/29/21 Physical Exam Const: COMMON NORMALS: no acute distress, patient oriented x3 and healthy appearing HENMT: COMMON NORMALS: normocephalic and atraumatic HEAD & SCALP: normocephalic and atraumatic Eye: COMMON NORMALS: Equal, round and reactive pupils present and EOMs intact bilaterally PUPIL: Yes Equal, round and reactive pupils present Neck/C-Spine: COMMON NORMALS: full ROM and supple Chest: COMMONS NORMALS: normal inspection of the chest; negative for normal palpation of entire chest wall (point tender in center of chest reproduces her pain) Resp: COMMON NORMALS: normal respiratory effort, No retractions, No use of accessory muscles and clear to auscultation bilaterally AUSCULTATION: clear to auscultation bilaterally Cardio: COMMON NORMALS: regular rate, regular rhythm and No murmurs present (Cardio) RATE: regular rate RHYTHM: regular rhythm GI: COMMON NORMALS: Normal to inspection, nondistended, normoactive bowel sounds present, Soft to palpation, non-tender and no masses PALPATION: Yes Soft to palpation Extremity: COMMON NORMALS: normal to inspection and full ROM Neuro: COMMON NORMALS: patient oriented x3, moves all extremities and no focal motor deficits Psych: COMMON NORMALS: mental status grossly normal, Normal thought process present and cooperative THOUGHT PROCESS: Normal thought process present Skin: COMMON NORMALS: no rashes or lesions noted and no wounds GENERAL SKIN EXAM: no rashes or lesions noted Course Vital Signs: Vital signs: Vital Signs Temperature 97.8 F 11/27/21 17:53 Pulse Rate 99 11/27/21 18:46 Respiratory Rate 18 11/27/21 18:46 Blood Pressure 118/72 11/27/21 18:46 Pulse Oximetry 94 11/27/21 18:46 MDM - Chest Pain Medical Decision Making Patient presents here with chest wall pain she is point tender on exam no signs of pulmonary embolism or aortic dissection initial troponin is normal she is stable for discharge is to follow-up with PCP and return if worsening. Lab Data : 11/27/21 18:27 11/27/21 18:27 Laboratory Results WBC 13.2 10^3/uL (4.0-10.0) H 11/27/21 18:27 RBC 5.17 10^6/uL (4.1-5.3) 11/27/21 18:27 Hgb 14.2 g/dL (11.5-15.3) 11/27/21 18: Hct 44.6 % (37.0-47.0) 11/27/21 MCV 86.3 fl (81-99) 11/27/21 MCH 27.5 pg (28.0-34.0) L 11/27/21 MCHC 31.8 g/dL (30.0-36.0) 11/27/21 RDW 13.6 % (12.1-15.1) 11/27/21 Plt Count 347 10^3/cmm (130-400) 11/27/21 MPV 11.0 fL (7.4-10.4) H 11/27/21: Neut % (Auto) 72.3 % 11/27/21: Lymph % (Auto) 17.7 % 11/27/21 [place] % (Auto) 6.8 % 11/27/21 Eos % (Auto) 1.6 % 11/27/21 Baso % (Auto) 0.5 % 11/27/21 Neut # (Auto) 9.55 10^3/uL (1.8-7.7) H 11/27/21 Lymph # (Auto) 2.3 10^3/uL (0.8-4.8) 11/27/21: [place] # (Auto) 0.9 10^3/uL (0.2-0.9) 11/27/21 Eos # (Auto) 0.2 10^3/uL (0.0-0.8) 11/27/21 Baso # (Auto) 0.1 10^3/uL (0.0-0.1) 11/27/21 Nucleated RBC % (auto) 0 % 11/27/21 Nucleated RBCs # 0.0 /100WBC 11/27/21 Sodium 134 mmol/L (136-145) L 11/27/21 Potassium 4.4 mmol/L (3.5-5.1) 11/27/21 Chloride 99 mmol/L (98-107) 11/27/21 18: Carbon Dioxide 21 mmol/L (22-29) L 11/27/21 18:27 Anion Gap 18.4 (5-19) 11/27/21 18: BUN 19 mg/dL (6-20) 11/27/21 18:27 Creatinine 0.7 mg/dL (0.5-0.9) 11/27/21 18: GFR Calculation 95.8 mL/min (90-130) 11/27/21 18: Glucose 202 mg/dL (65-115) H 11/27/21 18: Calculated Osmolality 286 mOsm/kg (285-295) 11/27/21 18: Calcium 9.7 mg/dL (8.5-10.5) 11/27/21 18: Total Bilirubin 0.4 mg/dL (0.15-1.2) 11/27/21 18: AST 52 U/L (0-32) H 11/27/21 18: ALT 133 U/L (0-33) H 11/27/21 18: Alkaline Phosphatase 159 IU/L (35-105) H 11/27/21 18: Troponin T Baseline 6 ng/L (0-10) 11/27/21 18: Total Protein 7.7 g/dL (6.6-8.7) 11/27/21 18: Albumin 4.3 g/dL (3.5-5.2) 11/27/21 18: Globulin 3.4 g/dL (1.3-4.6) 11/27/21 18:27 EKG Data EKG 1: I personally reviewed and interpreted this EKG as follows: EKG interpretation date: 11/27/21 EKG interpretation time: 17:58 Interpretation: sinus tach hr [address] or twave abnormalities qrs 109 qtc 410 Discharge Plan Discharge Patient Disposition: Home Clinical Impression: Atypical chest pain Condition: Stable Prescriptions: No Action spironolactone 50 mg tablet 50 mg PO DAILY Qty: 30 0RF ferrous gluconate 324 mg (37.5 mg iron) tablet 324 mg PO DAILY Qty: 30 0RF (DME) 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 meter [Accu-Chek Kori Plus Meter] Misc See Rx Instructions .ROUTE .MEDSUPPLY Qty: 1 0RF Rx Instructions: As directed (DME) lancets [Accu-Chek Fastclix Lancet Drum] Misc See Rx Instructions .ROUTE .MEDSUPPLY Qty: 100 1RF Rx Instructions: TWICE DAILY (DME) Accu-Chek Kori Plus test strp Strip See Rx Instructions .ROUTE .MEDSUPPLY Qty: 100 1RF Rx Instructions: twice daily omeprazole 40 mg capsule,delayed release(DR/EC) 40 mg PO DAILY Qty: 90 0RF (DME) FreeStyle Zackery 2 Sensor Kit See Rx Instructions .ROUTE .MEDSUPPLY Qty: 2 3RF Rx Instructions: monitors blood sugars (DME) FreeStyle Zackery 2 [place] Misc See Rx Instructions .ROUTE .MEDSUPPLY Qty: 1 0RF Rx Instructions: used to read sensers (DME) [employer] 5 Pack Pod Cartridge See Rx Instructions .Route Qty: 5 3RF Rx Instructions: As directed metformin 500 mg tablet extended release 24 hr 500 mg PO BID Qty: 180 3RF Rx Instructions: Take one tablet by mouth twice a day. gabapentin 300 mg capsule 300 mg PO TID Qty: 240 3RF montelukast [Singulair] 10 mg tablet 10 mg PO DAILY Qty: 90 1RF insulin aspart U-100 [Novolog U-100 Insulin aspart] 100 unit/mL solution See Rx Instructions SUBCUT .COMPLEX Qty: 140 3RF Rx Instructions: maximum 200 units/day through pump atenolol 25 mg tablet 25 mg PO BID Qty: 180 0RF lisinopril-hydrochlorothiazide 20-25 mg tablet 1 tab PO DAILY Qty: 90 0RF citalopram 20 mg tablet 20 mg PO DAILY Qty: 90 0RF albuterol sulfate [Ventolin HFA] 90 mcg/actuation HFA aerosol inhaler 2 puff INHALATION Q6H PRN (Reason: Shortness Of Breath Or Wheezing) Qty: 8.5 1RF budesonide-formoterol 160-4.5 mcg/actuation HFA aerosol inhaler 2 inh inhalation BID Qty: 10.2 0RF Rx Instructions: 340 be if unaffordable. amitriptyline 50 mg tablet 50 mg PO DAILY Qty: 90 0RF Discharge Orders: Discharge ED (Routine); Ordered 11/27/21 Ordered By: Kat Yang Referrals: Flores Mcmahon FNP-C [Primary Care Provider] - 1-3 days Discharge Diet: Advance as tolerated Discharge Activity: Resume usual activity Patient Instructions: Chest Pain (ED) Coding Level of Care Code ED [employer] Associate Professor for Chg Fwd Exam Comprehensive
[2021-11-27 19:17] LABS: Alanine Aminotransferase 133 U/L (0-33); Albumin Level 4.3 g/dL (3.5-5.2); Alkaline Phosphatase 159 IU/L (35-105); Blood Urea Nitrogen 19 mg/dL (6-20); Calcium 9.7 mg/dL (8.5-10.5); Carbon Dioxide 21 mmol/L (22-29); Chloride 99 mmol/L (98-107); Globulin 3.4 g/dL (1.3-4.6); Glomerular Filtration Rate 95.8 mL/min (90-130); Glucose 202 mg/dL (65-115); Osmolality Calculated 286 mOsm/kg (285-295); Sodium 134 mmol/L (136-145); Total Bilirubin 0.4 mg/dL (0.15-1.2); Total Protein 7.7 g/dL (6.6-8.7)
[2021-11-27 19:19] LABS: Troponin(5th) Baseline 6 ng/L (0-10)
[2021-11-27 19:29] LABS: Anion Gap 18.4 (5-19); Aspartate Amino Transferase 52 U/L (0-32); Potassium 4.4 mmol/L (3.5-5.1)
[2021-11-27 19:42] VITALS: BP 109/74; PULSE 99; RESP 16; O2SAT 94
== END 2021-11-27 19:45 | disposition home or self-care (01) ==
PROVIDERS: Emergency Provider Emergency Medicine; PCP Nurse Practitioner Family
DX: R07.89 Other chest pain (principal); Z79.84 Long term (current) use of oral hypoglycemic drugs; Z79.4 Long term (current) use of insulin; I10 Essential (primary) hypertension; E78.5 Hyperlipidemia, unspecified; E11.9 Type 2 diabetes mellitus without complications
CPT/HCPCS: 71045; 80053; 84484; 85025; 93005; 96374; 96375; 99284; J2270; J2405

== ENCOUNTER → 2021-12-17 12:45 | Outpatient (BNVA) | payer MEDICARE, MEDICAID, SELFPAY | PROVIDERS: PCP Nurse Practitioner Family; Visit Provider Internal Medicine Cardiovascular Disease | DX: E66.01 Morbid (severe) obesity due to excess calories (principal); Z68.44 Body mass index [BMI] 60.0-69.9, adult; I10 Essential (primary) hypertension; K21.9 Gastro-esophageal reflux disease without esophagitis; E11.9 Type 2 diabetes mellitus without complications; Z79.4 Long term (current) use of insulin; N83.8 Other noninflammatory disorders of ovary, fallopian tube and broad ligament; R07.9 Chest pain, unspecified; F17.210 Nicotine dependence, cigarettes, uncomplicated | CPT/HCPCS: 99204; 99213 ==

== ENCOUNTER 2021-12-22 11:00 | Emergency (ER) | payer MEDICARE, MEDICAID, SELFPAY ==
[2021-12-22 11:12] VITALS: BP 148/93; PULSE 86; RESP 20; TEMP 37.1; O2SAT 95; BMI 65.5
--- NOTE | 2021-12-22 11:28 | XRR_ITS ---
PROCEDURE INFORMATION: Exam: XR Cervical Spine Exam date and time: 12/22/2021 11:49 AM Age: 36 years old Clinical indication: Injury or trauma; Fall; Blunt trauma TECHNIQUE: Imaging protocol: XR of the cervical spine. Views: 2 or 3 views. COMPARISON: CT cervical spin wo con* [id number] 10/19/2019 1:40 PM FINDINGS: Bones/joints: Only C1 through C6 are visualized on the lateral view due to the patient's body habitus and overlying soft tissues.. No acute fracture. Normal alignment. Soft tissues: Unremarkable. XR/XR cervical spine 3V* [id number] IMPRESSION: No acute findings. Limited visualization of the lower cervical spine on the lateral view due to the patient's body habitus. No bony abnormality is identified on the AP view.
--- NOTE | 2021-12-22 11:28 | XRR_ITS ---
PROCEDURE INFORMATION: Exam: XR Thoracic Spine Exam date and time: 12/22/2021 11:49 AM Age: 36 years old Clinical indication: Injury or trauma; Fall; Blunt trauma (contusions or hematomas); Additional info: Fall, pain TECHNIQUE: Imaging protocol: XR of the thoracic spine. Views: 3 views. COMPARISON: CR XR thoracic spine 3V* [id number] 12/18/2019 12:11 PM FINDINGS: Bones/joints: Unchanged chronic mild anterior wedging of T12 is noted. No acute fracture. Normal alignment. Soft tissues: Unremarkable. XR/XR thoracic spine 3V* [id number] IMPRESSION: No acute findings. Unchanged exam.
--- NOTE | 2021-12-22 11:28 | XRR_ITS ---
PROCEDURE INFORMATION: Exam: XR Left Shoulder Exam date and time: 12/22/2021 11:49 AM Age: 36 years old Clinical indication: Injury or trauma; Fall; Blunt trauma (contusions or hematomas); Shoulder; Left; Additional info: Fall, pain TECHNIQUE: Imaging protocol: XR Left shoulder. Views: 2 or more views. COMPARISON: CR (CHEST, ) 11/27/2021 5:12 PM FINDINGS: Bones/joints: There is no acute fracture or dislocation. The acromioclavicular joint alignment is appropriate. The subacromial joint space is well-preserved. The glenohumeral joint is unremarkable. No calcific tendinopathy. The visualized ribs are intact. Lungs: The visualized lung apex is clear. Soft tissues: Normal. XR/XR shoulder LT min 2V* [id number] IMPRESSION: No acute bony abnormality.
--- NOTE | 2021-12-22 11:29 | ED_ITS ---
HPI - Fall General: Chief Complaint: Fall Stated Complaint: fall/hit back of head and back on sink Time Seen by Provider: 12/22/21 11:08 History of Present Illness: Patient states that she fell this morning in her bathroom striking her left shoulder and upper back on a sink. Patient states she was put her foot up to wash dog poop off of her foot and that is when she fell backwards. Patient denies any loss of consciousness or nausea or vomiting. Associated symptoms-after fall: Denies abdominal pain, chest pain or headache(s) Review of Systems Const: Denies: fever(s), chills or body aches Eyes: Denies: eye discomfort ENMT: Denies: throat pain Card: Denies: chest pain Resp: Denies: dyspnea GI: Denies: abdominal pain, nausea or vomiting Musc: Reports: back pain (Upper back) and extremity pain (Left shoulder) Skin/Breast: Denies: rash Neuro: Denies: headache(s) Psych: Denies: depression or suicidal ideation [facility] ED PFSH: Medical History (Updated 12/22/21 @ 12:24 by TONYA Villeda) Amenorrhea Asthma Benign essential HTN Bilateral chronic knee pain Bilateral leg edema Dyslipidemia GERD (gastroesophageal reflux disease) 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 Morbid obesity with BMI of 60.0-69.9, adult Muscle spasms of both lower extremities Pain management contract signed Prolonged depression Spinal stenosis, thoracic region Type 2 diabetes mellitus, with long-term current use of insulin Surgical History History of cholecystectomy Family History Father CAD (coronary artery disease) Diabetes Hypertension Family/Other Cancer Mother Diabetes Hypertension Social History Smoking and tobacco status: current every day smoker (1-2 ppd) cigarettes Packs smoked per day: 1 [ Other cigarette details: 1-2 ppd] Alcohol intake: never Caregiver/support person: Yes Household members: spouse and family Marital status: Current occupational status: disabled Current occupation: disabled History of recent travel: No Female Reproductive History: Date of last menstrual period: 12/18/21 Physical Exam Const: COMMON NORMALS: no acute distress, patient oriented x3 and alert HENMT: COMMON NORMALS: normocephalic and external ears normal HEAD & SCALP: normocephalic EXTERNAL EAR: Yes external ears normal Eye: COMMON NORMALS: EOMs intact bilaterally Neck/C-Spine: COMMON NORMALS: no JVD Resp: COMMON NORMALS: normal respiratory effort and No use of accessory muscles Cardio: COMMON NORMALS: no JVD GI: INSPECTION: Yes normal to inspection Back/Pelvis: OTHER: Tenderness to the posterior left shoulder and upper part of thoracic spine. No bruising or swelling noted all patient has full range of motion of her neck and has no pain with range of motion of her neck. Neurovascular intact left side. Extremity: COMMON NORMALS: normal to inspection and full ROM Neuro: COMMON NORMALS: patient oriented x3 SENSORIUM/ORIENTATION: Yes alert Psych: COMMON NORMALS: mental status grossly normal Skin: COMMON NORMALS: no rashes or lesions noted GENERAL SKIN EXAM: no rashes or lesions noted Course Vital Signs: Vital signs: Vital Signs Temperature 98.8 F 12/22/21 11:12 Pulse Rate 86 12/22/21 11:12 Respiratory Rate 20 H 12/22/21 11:12 Blood Pressure 148/93 12/22/21 11:12 Pulse Oximetry 95 12/22/21 11:12 MDM - Fall Medical Decision Making Contusion from fall. Etiology studies negative. Discharge Plan Discharge Patient Disposition: Home Clinical Impression: Contusion Condition: Stable Prescriptions: New Voltaren Arthritis Pain 1 % gel 4 g topical QID Qty: 100 0RF No Action (DME) Dexcom G4 Transmitter Device See Rx Instructions .Route 0RF Rx Instructions: As directed (DME) 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 meter [Accu-Chek Kori Plus Meter] Misc See Rx Instructions .ROUTE .MEDSUPPLY Qty: 1 0RF Rx Instructions: As directed (DME) lancets [Accu-Chek Fastclix Lancet Drum] Misc See Rx Instructions .ROUTE .MEDSUPPLY Qty: 100 1RF Rx Instructions: TWICE DAILY (DME) Accu-Chek Kori Plus test strp Strip See Rx Instructions .ROUTE .MEDSUPPLY Qty: 100 1RF Rx Instructions: twice daily omeprazole 40 mg capsule,delayed release(DR/EC) 40 mg PO DAILY Qty: 90 0RF (DME) FreeStyle Zackery 2 Sensor Kit See Rx Instructions .ROUTE .MEDSUPPLY Qty: 2 3RF Rx Instructions: monitors blood sugars (DME) FreeStyle Zackery 2 [place] Misc See Rx Instructions .ROUTE .MEDSUPPLY Qty: 1 0RF Rx Instructions: used to read sensers (DME) Omnipod Dash Insulin Pod Cartridge See Rx Instructions .Route Qty: 5 3RF Rx Instructions: As directed metformin 500 mg tablet extended release 24 hr 500 mg PO BID Qty: 180 3RF Rx Instructions: Take one tablet by mouth twice a day. gabapentin 300 mg capsule 300 mg PO TID Qty: 240 3RF montelukast [Singulair] 10 mg tablet 10 mg PO DAILY Qty: 90 1RF insulin aspart U-100 [Novolog U-100 Insulin aspart] 100 unit/mL solution See Rx Instructions SUBCUT .COMPLEX Qty: 140 3RF Rx Instructions: maximum 200 units/day through pump atenolol 25 mg tablet 25 mg PO BID Qty: 180 0RF citalopram 20 mg tablet 20 mg PO DAILY Qty: 90 0RF amitriptyline 50 mg tablet 50 mg PO DAILY Qty: 90 0RF ferrous gluconate 324 mg (37.5 mg iron) tablet 324 mg PO DAILY Qty: 30 0RF budesonide-formoterol 160-4.5 mcg/actuation HFA aerosol inhaler 2 inh inhalation BID Qty: 10.2 0RF Rx Instructions: 340 be if unaffordable. lisinopril-hydrochlorothiazide 20-25 mg tablet 1 tab PO DAILY Qty: 90 0RF spironolactone 50 mg tablet 50 mg PO DAILY Qty: 30 0RF albuterol sulfate [Ventolin HFA] 90 mcg/actuation HFA aerosol inhaler 2 puff INHALATION Q6H PRN (Reason: Shortness Of Breath Or Wheezing) Qty: 8.5 1RF Discharge Orders: Discharge ED (Routine); Ordered 12/22/21 Ordered By: Jakub Bianchi Referrals: Flores Mcmahon FNP-C [Primary Care Provider] - Patient Instructions: Contusion in Adults (ED) Activity Restrictions/Additional Instructions: Follow-up with medical provider as directed. Take medications as prescribed. Return to the ER or your medical provider if condition worsens. Please read and understand discharge instructions. If any questions ask please. Can apply ice to area to help with discomfort. Coding Level of Care Code ED Plant Safety Leader for Chg Fwd Exam Comprehensive
[2021-12-22] MEDS: TRAMadol 50 mg Tablet 100 MG PO (12:44)
== END 2021-12-22 13:18 | disposition home or self-care (01) ==
PROVIDERS: Emergency Provider Nurse Practitioner Family; PCP Nurse Practitioner Family
DX: S20.229A Contusion of unspecified back wall of thorax, initial encounter (principal); S40.012A Contusion of left shoulder, initial encounter; W01.198A Fall on same level from slipping, tripping and stumbling with subsequent striking against other object, initial encounter
CPT/HCPCS: 72040; 72072; 73030; 99283

== ENCOUNTER 2021-12-23 17:42 | Emergency (ER) | payer MEDICARE, MEDICAID, SELFPAY ==
[2021-12-23 17:45] VITALS: BP 156/97; PULSE 96; RESP 24; TEMP 36.4; O2SAT 97; BMI 61.9
--- NOTE | 2021-12-23 17:58 | W.ED.FALL ---
HPI - Fall General: Chief Complaint: Fall Stated Complaint: Hurt her shoulder yesterday from fall Time Seen by Provider: 12/23/21 17:47 Source: patient Mode of arrival: ambulatory Limitations: no limitations History of Present Illness: 36-year-old female that fell yesterday. She says ground-level fall fell onto her left shoulder x-ray showed no acute abnormality states she is having left shoulder pain was able to take in her meds. States pain sharp in nature rates it a 5 out of 10 worse with movement denies any pain elsewhere. Associated symptoms-after fall: Denies abdominal pain, chest pain or headache(s) Review of Systems Const: Denies: fever(s), chills, body aches or change in appetite Eyes: Denies: blurry vision or eye discomfort ENMT: Denies: throat pain or dental pain Card: Denies: chest pain Resp: Denies: dyspnea GI: Denies: abdominal pain, nausea, vomiting or diarrhea : Denies: dysuria Musc: Reports: extremity pain Skin/Breast: Denies: rash Neuro: Denies: headache(s) Psych: Denies: depression Sunday/Lymph: Denies: easy bruising All/Imm: Denies: urticaria PFSH ED PFSH: Medical History (Updated 12/23/21 @ 18:00 by Kat Yang MD) Amenorrhea Asthma Benign essential HTN Bilateral chronic knee pain Bilateral leg edema Dyslipidemia 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 Morbid obesity with BMI of 60.0-69.9, adult Muscle spasms of both lower extremities Pain management contract signed Prolonged depression Spinal stenosis, thoracic region Type 2 diabetes mellitus, with long-term current use of insulin Surgical History History of cholecystectomy Family History Father CAD (coronary artery disease) Diabetes Hypertension Family/Other Cancer Mother Diabetes Hypertension Social History Smoking and tobacco status: current every day smoker (1-2 ppd) cigarettes Packs smoked per day: 1 [ Other cigarette details: 1-2 ppd] Alcohol intake: never Caregiver/support person: Yes Household members: spouse and family Marital status: Current occupational status: disabled Current occupation: disabled History of recent travel: No Female Reproductive History: Date of last menstrual period: 12/18/21 Physical Exam Const: COMMON NORMALS: no acute distress, patient oriented x3 and healthy appearing HENMT: COMMON NORMALS: normocephalic and atraumatic HEAD & SCALP: normocephalic and atraumatic Eye: COMMON NORMALS: Equal, round and reactive pupils present and EOMs intact bilaterally PUPIL: Yes Equal, round and reactive pupils present Neck/C-Spine: COMMON NORMALS: full ROM and supple Chest: COMMONS NORMALS: normal inspection of the chest and normal palpation of entire chest wall Resp: COMMON NORMALS: normal respiratory effort, No retractions, No use of accessory muscles and clear to auscultation bilaterally AUSCULTATION: clear to auscultation bilaterally Cardio: COMMON NORMALS: regular rate, regular rhythm and No murmurs present (Cardio) RATE: regular rate RHYTHM: regular rhythm GI: COMMON NORMALS: Normal to inspection, nondistended, normoactive bowel sounds present, Soft to palpation, non-tender and no masses PALPATION: Yes Soft to palpation Extremity: NARRATIVE EXTREMITY EXAM: Tenderness over left shoulder full range of motion to left arm no obvious deformities Neuro: COMMON NORMALS: patient oriented x3, moves all extremities and no focal motor deficits Psych: COMMON NORMALS: mental status grossly normal, Normal thought process present and cooperative THOUGHT PROCESS: Normal thought process present Skin: COMMON NORMALS: no rashes or lesions noted and no wounds GENERAL SKIN EXAM: no rashes or lesions noted Course Vital Signs: Vital signs: Vital Signs Temperature 97.6 F 12/23/21 17:45 Pulse Rate 96 12/23/21 17:45 Respiratory Rate 24 H 12/23/21 17:45 Blood Pressure 156/97 12/23/21 17:45 Pulse Oximetry 97 12/23/21 17:45 MDM - Fall Medical Decision Making Patient presents here with a left shoulder contusion from a fall. Her fall was yesterday she was seen here had normal x-rays states she is not able to take the diclofenac because she is allergic to it. We will place her on muscle x-rays and have her ice it she is to follow-up with her PCP and return if worsening she understands agrees to plan Discharge Plan Discharge Patient Disposition: Home Clinical Impression: Contusion of left shoulder, Fall Condition: Stable Prescriptions: New methocarbamol 750 mg tablet 750 mg PO Q6H PRN (Reason: spasms) Qty: 20 0RF No Action (DME) Dexcom G4 Transmitter Device See Rx Instructions .Route 0RF Rx Instructions: As directed (DME) 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 meter [Accu-Chek Kori Plus Meter] Misc See Rx Instructions .ROUTE .MEDSUPPLY Qty: 1 0RF Rx Instructions: As directed (DME) lancets [Accu-Chek Fastclix Lancet Drum] Misc See Rx Instructions .ROUTE .MEDSUPPLY Qty: 100 1RF Rx Instructions: TWICE DAILY (DME) Accu-Chek Kori Plus test strp Strip See Rx Instructions .ROUTE .MEDSUPPLY Qty: 100 1RF Rx Instructions: twice daily omeprazole 40 mg capsule,delayed release(DR/EC) 40 mg PO DAILY Qty: 90 0RF (DME) FreeStyle Zackery 2 Sensor Kit See Rx Instructions .ROUTE .MEDSUPPLY Qty: 2 3RF Rx Instructions: monitors blood sugars (DME) FreeStyle Zackery 2 [place] Misc See Rx Instructions .ROUTE .MEDSUPPLY Qty: 1 0RF Rx Instructions: used to read sensers (DME) Omnipod Dash Insulin Pod Cartridge See Rx Instructions .Route Qty: 5 3RF Rx Instructions: As directed metformin 500 mg tablet extended release 24 hr 500 mg PO BID Qty: 180 3RF Rx Instructions: Take one tablet by mouth twice a day. gabapentin 300 mg capsule 300 mg PO TID Qty: 240 3RF montelukast [Singulair] 10 mg tablet 10 mg PO DAILY Qty: 90 1RF insulin aspart U-100 [Novolog U-100 Insulin aspart] 100 unit/mL solution See Rx Instructions SUBCUT .COMPLEX Qty: 140 3RF Rx Instructions: maximum 200 units/day through pump atenolol 25 mg tablet 25 mg PO BID Qty: 180 0RF citalopram 20 mg tablet 20 mg PO DAILY Qty: 90 0RF amitriptyline 50 mg tablet 50 mg PO DAILY Qty: 90 0RF ferrous gluconate 324 mg (37.5 mg iron) tablet 324 mg PO DAILY Qty: 30 0RF budesonide-formoterol 160-4.5 mcg/actuation HFA aerosol inhaler 2 inh inhalation BID Qty: 10.2 0RF Rx Instructions: 340 be if unaffordable. lisinopril-hydrochlorothiazide 20-25 mg tablet 1 tab PO DAILY Qty: 90 0RF spironolactone 50 mg tablet 50 mg PO DAILY Qty: 30 0RF albuterol sulfate [Ventolin HFA] 90 mcg/actuation HFA aerosol inhaler 2 puff INHALATION Q6H PRN (Reason: Shortness Of Breath Or Wheezing) Qty: 8.5 1RF Voltaren Arthritis Pain 1 % gel 4 g topical QID Qty: 100 0RF Discharge Orders: Discharge ED (Routine); Ordered 12/23/21 Ordered By: Kat Yang Referrals: Flores Mcmahon FNP-C [Primary Care Provider] - Discharge Diet: Advance as tolerated Discharge Activity: Resume usual activity Patient Instructions: Contusion in Adults (ED) Coding Level of Care Code ED Time Checker for Leonela Escobedo
[2021-12-23] MEDS: HYDROcodone-acetaminophen 5-325 mg Tablet 1 TAB PO (18:01)
== END 2021-12-23 18:20 | disposition home or self-care (01) ==
PROVIDERS: Emergency Provider Emergency Medicine; PCP Nurse Practitioner Family
DX: S40.012A Contusion of left shoulder, initial encounter (principal); W18.30XA Fall on same level, unspecified, initial encounter; F17.210 Nicotine dependence, cigarettes, uncomplicated
CPT/HCPCS: 99282

== ENCOUNTER 2022-01-12 20:22 | Emergency (ER) | payer MEDICARE, MEDICAID, SELFPAY ==
--- NOTE | 2022-01-12 20:26 | XRR_ITS ---
PROCEDURE INFORMATION: Exam: XR Chest Exam date and time: 01/12/2022 8:45 PM Age: 36 years old Clinical indication: Sternal or substernal pain; Additional info: Chest pain TECHNIQUE: Imaging protocol: XR of the chest. Views: 1 view. COMPARISON: CR (CHEST, ) 11/27/2021 5:12 PM FINDINGS: Lungs: Unremarkable. No consolidation. Pleural spaces: Unremarkable. No pleural effusion. No pneumothorax. Heart/Mediastinum: Unremarkable. No cardiomegaly. Bones/joints: Unremarkable. XR/XR chest 1V portable [id number] IMPRESSION: No acute findings.
[2022-01-12 20:28] VITALS: BP 154/94; PULSE 109; RESP 22; TEMP 36.8; O2SAT 97
[2022-01-12 20:30] VITALS: BP 154/94; PULSE 99; RESP 25; TEMP 36.9; O2SAT 93
--- NOTE | 2022-01-12 20:32 | W.ED.CHESTPA ---
HPI - Chest Pain General: Chief Complaint: Chest Pain Stated Complaint: Chest Pain Time Seen by Provider: 01/12/22 20:25 History of Present Illness: 36-year-old female comes in today with complaints of left chest pain. Patient reports that she had made some upper and her mother got an argument with her regarding what she had made for supper. This upset patient and then she started having some chest discomfort. Patient appears nontoxic. Patient appears in no pain. Patient is morbidly obese, has a history of type 2 diabetes, has recurrent chest pain, chronic kidney disease, nicotine use, GERD, depression with anxiety. complaint: chest discomfort Onset (ago): hour(s) Timing of current episode: episodic Prior episodes: Yes Onset: other (Under emotional stress) Pain location: left chest Pain radiation: left shoulder Severity: mild Quality: tightness and aching Relieving factors: nothing Exacerbating factors: nothing Associated symptoms: Reports dyspnea; Deny fever(s), nausea or vomiting Risk Factors: Coronary artery disease risk factors: diabetes and smoking history Review of Systems General: Reports: 10 or more systems reviewed and unremarkable except in HPI and below Const: Denies: fever(s) Card: Reports: chest pain Resp: Reports: dyspnea GI: Denies: nausea, vomiting or diarrhea : Denies: difficulty voiding Musc: Reports: back pain Skin/Breast: Denies: rash Neuro: Denies: headache(s) Psych: Reports: anxiety Endo: Denies: polyuria PFS ED PFSH: Medical History (Updated 01/12/22 @ 21:29 by TONYA Best) Amenorrhea Asthma Benign essential HTN Bilateral chronic knee pain Bilateral leg edema Dyslipidemia GERD (gastroesophageal reflux disease) [facility] (current) use of opiate analgesic Morbid obesity with BMI of 60.0-69.9, adult Muscle spasms of both lower extremities Pain management contract signed Prolonged depression Spinal stenosis, thoracic region Type 2 diabetes mellitus, with long-term current use of insulin Surgical History History of cholecystectomy Family History Father CAD (coronary artery disease) Diabetes Hypertension Family/Other Cancer Mother Diabetes Hypertension Social History Smoking and tobacco status: current every day smoker (1-2 ppd) cigarettes Packs smoked per day: 1 [ Other cigarette details: 1-2 ppd] Alcohol intake: never Caregiver/support person: Yes Household members: spouse and family Marital status: Current occupational status: disabled Current occupation: disabled History of recent travel: No Female Reproductive History: Date of last menstrual period: 12/18/21 Physical Exam Const: COMMON NORMALS: no acute distress HENMT: HEAD & SCALP: normal to inspection Neck/C-Spine: COMMON NORMALS: full ROM Chest: COMMONS NORMALS: normal inspection of the chest Resp: COMMON NORMALS: normal respiratory effort and clear to auscultation bilaterally AUSCULTATION: clear to auscultation bilaterally Cardio: COMMON NORMALS: regular rate and regular rhythm RATE: regular rate RHYTHM: regular rhythm GI: COMMON NORMALS: Soft to palpation and non-tender PALPATION: Yes Soft to palpation Back/Pelvis: THORACIC SPINE/UPPER BACK: Yes other soft tissue findings (Mid back abrasion, healing) Extremity: COMMON NORMALS: normal to inspection Skin: COMMON NORMALS: no rashes or lesions noted GENERAL SKIN EXAM: no rashes or lesions noted Course ED course: 2124, patient reports improvement in anxiety. Patient continues to have some anterior chest wall tenderness. Palpated chest wall exacerbate and pain. Laboratory values were unremarkable. Vital Signs: Vital signs: Vital Signs Temperature 98.5 F 01/12/22 21:00 Pulse Rate 102 H 01/12/22 21:00 Respiratory Rate 24 H 01/12/22 21:00 Blood Pressure 154/94 01/12/22 20:30 Pulse Oximetry 154 H 01/12/22 21:00 MDM - Chest Pain Medical Decision Making 36-year-old female comes in today with complaints of anterior chest pain. On exam respirations are even lungs were clear to auscultation. Skin was warm and dry. Patient reported arguing with her mother prior to the chest wall pain starting. EKG showed a normal sinus rhythm with a regular rate in the 80s. Blood pressure was mildly elevated at 154 systolic. Patient had tenderness of the left anterior chest wall. Differential diagnosis includes musculoskeletal pain, ACS, CHF, anxiety. I felt that since the incident occurred when the patient started having the pain was more related to anxiety since she was arguing with her mother. I gave her milligram Ativan but it improved patient's anxiety but did not help with her pain. Reevaluation noticed that chest wall tenderness was worse. Patient was given 1 tablet of hydrocodone 5?325 for her acute pain. Patient was then recommended to use acetaminophen at home. Laboratory values were unremarkable. With no signs of ACS or other significant abnormalities. Chest x-ray was normal. Patient reported understanding of care plan and need for follow-up or return to the ER. Lab Data : 01/12/22 20:31 01/12/22: Radiology Impressions Chest X-Ray 01/12/22: IMPRESSION: No acute findings. Laboratory Results WBC 15.2 10^3/uL (4.0-10.0) H 01/12/22 20: RBC 5.03 10^6/uL (4.1-5.3) 01/12/22: Hgb 14.1 g/dL (11.5-15.3) 01/12/22: Hct 43.6 % (37.0-47.0) 01/12/22: MCV 86.7 fl (81-99) 01/12/22: MCH 28.0 pg (28.0-34.0) 01/12/22: MCHC 32.3 g/dL (30.0-36.0) 01/12/22: RDW 13.6 % (12.1-15.1) 01/12/22: Plt Count 294 10^3/cmm (130-400) 01/12/22: MPV 10.9 fL (7.4-10.4) H 01/12/22 20: Neut % (Auto) 76.1 % 01/12/22 20: Lymph % (Auto) 14.4 % 01/12/22: [place] % (Auto) 6.3 % 01/12/22: Eos % (Auto) 1.6 % 01/12/22: Baso % (Auto) 0.4 % 01/12/22: Neut # (Auto) 11.57 10^3/uL (1.8-7.7) H 01/12/22 20: Lymph # (Auto) 2.2 10^3/uL (0.8-4.8) 01/12/22 20:31 [place] # (Auto) 1.0 10^3/uL (0.2-0.9) H 01/12/22 20: Eos # (Auto) 0.2 10^3/uL (0.0-0.8) 01/12/22 20: Baso # (Auto) 0.1 10^3/uL (0.0-0.1) 01/12/22 20: Nucleated RBC % (auto) 0 % 01/12/22 20: Nucleated RBCs # 0.0 /100WBC 01/12/22 20: Sodium 132 mmol/L (136-145) L 01/12/22 20: Potassium 4.3 mmol/L (3.5-5.1) 01/12/22 20: Chloride 93 mmol/L (98-107) L 01/12/22 20: Carbon Dioxide 23 mmol/L (22-29) 01/12/22 20: Anion Gap 20.3 (5-19) H 01/12/22 20: BUN 18 mg/dL (6-20) 01/12/22 20: Creatinine 0.8 mg/dL (0.5-0.9) 01/12/22 20: GFR Calculation 82.1 mL/min (90-130) L 01/12/22: Glucose 208 mg/dL (65-115) H 01/12/22 20: Calculated Osmolality 282 mOsm/kg (285-295) L 01/12/22 20: Calcium 9.4 mg/dL (8.5-10.5) 01/12/22 20: Total Bilirubin 0.4 mg/dL (0.15-1.2) 01/12/22 20: AST 24 U/L (0-32) 01/12/22 20: ALT 37 U/L (0-33) H 01/12/22 20: Alkaline Phosphatase 113 IU/L (35-105) H 01/12/22 20: Troponin T Baseline 6 ng/L (0-10) 01/12/22 20: NT-Pro-B Natriuret Pep 76 pg/mL (0-125) 01/12/22 20: Total Protein 8.2 g/dL (6.6-8.7) 01/12/22 20:31 Albumin 4.2 g/dL (3.5-5.2) 01/12/22 20:31 Globulin 4.0 g/dL (1.3-4.6) 01/12/22 20:31 Lipase 23 U/L (13-60) 01/12/22 20:31 HCG, Qual Negative (Negative) 01/12/22 20:46 Urine Color Yellow (Yellow) 01/12/22 20:46 Urine Appearance Clear (CLEAR) 01/12/22 20:46 Urine pH 5 (5-7) 01/12/22 20:46 Ur Specific [place] 1.020 (1.005-1.030) 01/12/22 20:46 Urine Protein Neg (Negative) 01/12/22 20:46 Urine Glucose (UA) Norm (Normal) 01/12/22 20:46 Urine Ketones Negative (Negative) 01/12/22 20:46 Urine Blood Neg (Negative) 01/12/22 20:46 Urine Nitrate Negative (Negative) 01/12/22 20:46 Urine Bilirubin Neg (Negative) 01/12/22 20:46 Urine Urobilinogen Norm mg/dL (Negative) 01/12/22 20:46 Ur Leukocyte Esterase Negative (Negative) 01/12/22 20:46 EKG Data EKG 1: EKG interpretation date: 01/12/22 EKG interpretation time: 20:55 Interpretation: EKG shows a sinus rhythm with a 98 bpm, no ectopy or ST elevation. Regular rate. No significant changes from previous exam from November 2021. Discharge Plan Discharge Patient Disposition: Home Clinical Impression: Anterior chest wall pain, Anxiety Condition: Stable Prescriptions: No Action (DME) Dexcom G4 Transmitter Device See Rx Instructions .Route 0RF Rx Instructions: As directed (DME) 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 meter [Accu-Chek Kori Plus Meter] Misc See Rx Instructions .ROUTE .MEDSUPPLY Qty: 1 0RF Rx Instructions: As directed (DME) lancets [Accu-Chek Fastclix Lancet Drum] Misc See Rx Instructions .ROUTE .MEDSUPPLY Qty: 100 1RF Rx Instructions: TWICE DAILY (DME) Accu-Chek Kori Plus test strp Strip See Rx Instructions .ROUTE .MEDSUPPLY Qty: 100 1RF Rx Instructions: twice daily omeprazole 40 mg capsule,delayed release(DR/EC) 40 mg PO DAILY Qty: 90 0RF (DME) FreeStyle Zackery 2 Sensor Kit See Rx Instructions .ROUTE .MEDSUPPLY Qty: 2 3RF Rx Instructions: monitors blood sugars (DME) FreeStyle Zackery 2 [place] Misc See Rx Instructions .ROUTE .MEDSUPPLY Qty: 1 0RF Rx Instructions: used to read sensers (DME) Omnipod Dash Insulin Pod Cartridge See Rx Instructions .Route Qty: 5 3RF Rx Instructions: As directed metformin 500 mg tablet extended release 24 hr 500 mg PO BID Qty: 180 3RF Rx Instructions: Take one tablet by mouth twice a day. gabapentin 300 mg capsule 300 mg PO TID Qty: 240 3RF montelukast [Singulair] 10 mg tablet 10 mg PO DAILY Qty: 90 1RF insulin aspart U-100 [Novolog U-100 Insulin aspart] 100 unit/mL solution See Rx Instructions SUBCUT .COMPLEX Qty: 140 3RF Rx Instructions: maximum 200 units/day through pump atenolol 25 mg tablet 25 mg PO BID Qty: 180 0RF citalopram 20 mg tablet 20 mg PO DAILY Qty: 90 0RF amitriptyline 50 mg tablet 50 mg PO DAILY Qty: 90 0RF ferrous gluconate 324 mg (37.5 mg iron) tablet 324 mg PO DAILY Qty: 30 0RF budesonide-formoterol 160-4.5 mcg/actuation HFA aerosol inhaler 2 inh inhalation BID Qty: 10.2 0RF Rx Instructions: 340 be if unaffordable. lisinopril-hydrochlorothiazide 20-25 mg tablet 1 tab PO DAILY Qty: 90 0RF spironolactone 50 mg tablet 50 mg PO DAILY Qty: 30 0RF albuterol sulfate [Ventolin HFA] 90 mcg/actuation HFA aerosol inhaler 2 puff INHALATION Q6H PRN (Reason: Shortness Of Breath Or Wheezing) Qty: 8.5 1RF Voltaren Arthritis Pain 1 % gel 4 g topical QID Qty: 100 0RF methocarbamol 750 mg tablet 750 mg PO Q6H PRN (Reason: spasms) Qty: 20 0RF Discharge Orders: Discharge ED (Routine); Ordered 01/12/22 Ordered By: Herb Nathan Referrals: Flores Mcmahon FNP-C [Primary Care Provider] - Discharge Diet: Usual diet Discharge Activity: Increase activity as tolerated Patient Instructions: Musculoskeletal Pain (ED) Activity Restrictions/Additional Instructions: Home and rest. Drink plenty of fluids. Acetaminophen as needed for pain. Follow-up with primary care for further instruction. Return to ER for new concerns. Coding Level of Care Code ED Pen And Pencil Repairer for Chg Fwd Exam Comprehensive
[2022-01-12 20:38] LABS: Basophils # 0.1 10^3/uL (0.0-0.1); Basophils % 0.4 %; Eosinophils # 0.2 10^3/uL (0.0-0.8); Eosinophils % 1.6 %; Hematocrit 43.6 % (37.0-47.0); Hemoglobin 14.1 g/dL (11.5-15.3); Lymphocytes # 2.2 10^3/uL (0.8-4.8); Lymphocytes % 14.4 %; Mean Corpuscular HGB Conc 32.3 g/dL (30.0-36.0); Mean Corpuscular Volume 86.7 fl (81-99); Mean Platelet Volume 10.9 fL (7.4-10.4); Monocytes % 6.3 %; Neutrophils # 11.57 10^3/uL (1.8-7.7); Neutrophils % 76.1 %; Nucleated Red Blood Cells % 0 %; Platelet Count 294 10^3/cmm (130-400); Red Blood Count 5.03 10^6/uL (4.1-5.3); Red Cell Distribution Width 13.6 % (12.1-15.1); White Blood Count 15.2 10^3/uL (4.0-10.0)
[2022-01-12 20:55] LABS: Add Urine Microscopic? NO; Charge for UA Resulting for Rev
[2022-01-12 20:56] LABS: Glucose Urine UA Norm (Normal); HCG Qualitative Urine. Negative (Negative); Protein Urine Neg (Negative); Urine Appearance Clear (CLEAR); Urine Color Yellow (Yellow); pH Urine 5 (5-7)
[2022-01-12 20:56] LABS: Troponin(5th) Baseline 6 ng/L (0-10)
[2022-01-12 20:57] LABS: Bilirubin Urine Neg (Negative); Blood Urine Neg (Negative); Ketones Urine Negative (Negative); Leukocyte Esterase Urine Negative (Negative); Nitrate Urine Negative (Negative); Urobilinogen Urine Norm (Negative)
[2022-01-12 21:00] VITALS: PULSE 102; RESP 24; TEMP 36.9; O2SAT 154
[2022-01-12 21:04] LABS: Alanine Aminotransferase 37 U/L (0-33); Albumin Level 4.2 g/dL (3.5-5.2); Alkaline Phosphatase 113 IU/L (35-105); Anion Gap 20.3 (5-19); Aspartate Amino Transferase 24 U/L (0-32); Blood Urea Nitrogen 18 mg/dL (6-20); Calcium 9.4 mg/dL (8.5-10.5); Carbon Dioxide 23 mmol/L (22-29); Chloride 93 mmol/L (98-107); Glomerular Filtration Rate 82.1 mL/min (90-130); Glucose 208 mg/dL (65-115); Lipase 23 U/L (13-60); NT Pro B Type Natriuretic Pept 76 pg/mL (0-125); Osmolality Calculated 282 mOsm/kg (285-295); Potassium 4.3 mmol/L (3.5-5.1); Sodium 132 mmol/L (136-145); Total Bilirubin 0.4 mg/dL (0.15-1.2); Total Protein 8.2 g/dL (6.6-8.7)
[2022-01-12] MEDS: LORazepam 2 mg/mL INJ 1 mL 1 MG IVP (21:06)
[2022-01-12] MEDS: lidocaine 2% viscous 15 ML, aluminum-mag hydrox-simethicon 30 ML, sucralfate oral liq 1 GM PO (21:07)
[2022-01-12] MEDS: HYDROcodone-acetaminophen 5-325 mg Tablet 1 TAB PO (22:25)
--- NOTE | 2022-01-12 22:26 | ECG_ITS ---
[facility] Test Date: 2022-01-12 Pat Name: Lorraine Curry Department: Room: Gender: Female Terrazzo Journeyman: : 1985 Requested By: Herb Sandoval Order Number: [id number] Bernal MD: Velasquez Desai M.D. Measurements Intervals [place] Rate: 98 P: 44 CT: 160 QRS: 38 QRSD: 95 T: 33 QT: 362 QTc: 464 Interpretive Statements SINUS RHYTHM POSSIBLE LEFT ATRIAL ENLARGEMENT [-0.1mV P-WAVE IN V1/V2] Compared to ECG 11/27/2021 17:58:27 Sinus tachycardia no longer present Electronically Signed On 01-12-2022 22:04:22 CDT by Velasquez Desai M.D. [id number]
[2022-01-12 22:34] VITALS: BP 154/95; PULSE 102; RESP 24; TEMP 36.9; O2SAT 154
== END 2022-01-12 22:35 | disposition home or self-care (01) ==
PROVIDERS: Emergency Provider Nurse Practitioner Family; PCP Nurse Practitioner Family
DX: R07.89 Other chest pain (principal); F41.9 Anxiety disorder, unspecified; I10 Essential (primary) hypertension; E78.5 Hyperlipidemia, unspecified; K21.9 Gastro-esophageal reflux disease without esophagitis; E66.01 Morbid (severe) obesity due to excess calories; Z68.44 Body mass index [BMI] 60.0-69.9, adult; E11.9 Type 2 diabetes mellitus without complications; F17.210 Nicotine dependence, cigarettes, uncomplicated; Z79.4 Long term (current) use of insulin; Z79.84 Long term (current) use of oral hypoglycemic drugs
CPT/HCPCS: 71045; 80053; 81003; 81025; 83690; 83880; 84484; 85025; 93005; 96374; 99285; J2060

== ENCOUNTER 2022-01-28 06:48 | Outpatient (CLI) | payer MEDICARE, MEDICAID, SELFPAY ==
[2022-01-28 07:04] VITALS: BMI 61.9
--- NOTE | 2022-01-28 07:04 | ECG_ITS ---
[facility] Test Date: 2022-01-28 Pat Name: Lorraine Curry Department: Room: Gender: Female Grid Molder: Ksenia Malissa : 1985 Requested By: Manju Pierce Order Number: [id number] Gabe MD: Manju Pierce M.D. Interpretive Statements NAME OF STUDY: LEXISCAN SESTAMIBI STRESS TEST INDICATION: Chest Pain, exertional shortness of breath PROCEDURE: At the baseline, the blood pressure was 131/88 mmHg with a heart rate of 100 bpm. The electrocardiogram showed sinus rhythm, normal axis. Nonspecific T wave inversion. The Lexiscan was infused over a period of 20 seconds. A total of 0.4 milligrams of Lexiscan was infused. The stress phase was continued for a total of 5 minutes. Heart rate at the end of the stress phase was 114 bpm with a blood pressure of 141/78 mmHg. The EKG at the peak infusion revealed sinus tachycardia at 114 bpm with no significant ST-T wave changes. The study was terminated due to protocol completion. Sestamibi was injected 20 seconds after the Lexiscan infusion. Blood pressure at the end of the recovery phase was 154/77 mmHg with a heart rate of 106 beats per minute. CONCLUSION: 1. No significant EKG changes with the LexiScan infusion. 2. No LexiScan induced chest pain or cardiac arrhythmia. 3. Normal blood pressure and heart rate response. 4. Sestamibi/sestamibi perfusion scan pending; see separate report. Electronically Signed On 01-29-2022 13:46:41 CDT by Manju Pierce M.D. [id number]
--- NOTE | 2022-01-28 07:05 | NMCV_ITS ---
NM hollie perf SPECT r/s* [id number] Lorraine Curry Age: 36 Gender: F : 1985 Exam Date: 01/28/2022 08:07 Ordering Phys: Manju Pierce MD ([email or web address]) Technologist: AISHA Arechiga Exam Location: [facility] Indications: CHEST PAIN STRESS TEST Please see separate stress test report in [facility] for full findings IMAGE PROTOCOL Rest/Stress 1 Lexiscan Day Radiopharmaceutical Dose (mCi) Administration Site Administered by Rest: Tc-99m 10.8 IV AISHA Suarez Sestamibi Stress:Tc-99m 33.0 IV AISHA Suarez Sestamibi Rest: 28-Jan-2022 60 Discovery 630 Stress: 28-Jan-2022 30 Discovery 630 0.4mg Lexiscan. Supine position only as patient was unable to lay prone. SPECT RESULTS Technical Quality: Good Raw Data Analysis: Normal, Breast attenuation Image Corrections: No attenuation or motion correction applied Summed Stress Score: 0 Summed Rest Score: 1 Summed Difference Score: 0 PERFUSION FINDINGS Small sized perfusion abnormality of mild severity of mid anterior wall on rest images with improved tracer uptake on stress images. This is suggestive of breast attenuation artifact. FUNCTIONAL RESULTS (calculated via Gated SPECT) Stress Image LV EF (%): 75 Stress EDV (mL):118 TID: 0.93 Stress ESV (mL):29 FUNCTIONAL FINDINGS: The left ventricle is normal in size. Transient Ischemia Dilatation of 0.93. There is normal left ventricular systolic function. The left ventricular ejection fraction is normal with a value of 75%. There is normal left ventricular wall thickening with no regional wall motion abnormality. Normal end-diastolic volume. IMPRESSIONS 1. Myocardial perfusion imaging is normal. Breast attenuation artifact noted on anterior wall. 2. Overall left ventricular systolic function is normal without regional wall motion abnormalities, LVEF=75%. 3. EKG portion of the study will be reported separately. 4. Scan indicates low risk for cardiac events. Manju Pierce MD (Electronically Signed) Final Date: 29 Jan 2022 13:13 S
--- NOTE | 2022-01-28 08:24 | PC.NURSE ---
Waiver Patient reports there is no way she could be . Denies having hysterectomy and tubal ligation. LMP reported 3 weeks ago. Gave option for urine HCG or waiver. Reports has had vasectomy and wishes to proceed with test today. Pt signed waiver and sent to admissions to be scanned on file.
[2022-01-28] MEDS: regadenoson 0.4 Mg/5 ml Syringe IVP (08:43)
[2022-01-28 08:58] VITALS: BP 131/88; PULSE 98
== END 2022-01-28 06:49 | disposition home or self-care (01) ==
LOC: CDL 06:52
PROVIDERS: PCP Nurse Practitioner Family; Visit Provider Internal Medicine Cardiovascular Disease
DX: R07.9 Chest pain, unspecified (principal); R06.02 Shortness of breath
CPT/HCPCS: 78452; 93017; A9500; J2785

== ENCOUNTER → 2022-01-29 12:37 | Outpatient (BNVA) | payer MEDICARE, MEDICAID, SELFPAY | PROVIDERS: PCP Nurse Practitioner Family; Visit Provider Podiatrist Foot & Ankle Surgery | DX: S99.922A Unspecified injury of left foot, initial encounter (principal); E11.9 Type 2 diabetes mellitus without complications; Z79.4 Long term (current) use of insulin; M21.41 Flat foot [pes planus] (acquired), right foot; M21.42 Flat foot [pes planus] (acquired), left foot; W23.0XXA Caught, crushed, jammed, or pinched between moving objects, initial encounter | CPT/HCPCS: 99213; 99214 ==

== ENCOUNTER 2022-03-14 18:00 | Emergency (ER) | payer MEDICARE, MEDICAID, SELFPAY ==
[2022-03-14 18:08] VITALS: BP 161/79; PULSE 104; RESP 20; TEMP 36.4; O2SAT 94
--- NOTE | 2022-03-14 19:06 | ED_ITS ---
HPI - General Adult General: Chief complaint: General Medical Stated complaint: legs are swollen Time Seen by Provider: 03/14/22 18:58 History of Present Illness: 36-year-old presents to left lower extremity pain and swelling. States this started 3 to 4 days ago. Denies any chest pain or shortness of breath. However upon further questioning does state that she has had swelling in both legs but it is worse on the left. Denies any fevers or chills. Denies any focal numbness weakness or tingling. Review of Systems Narrative: - CONSTITUTIONAL: Denies weight loss, fever and chills. - HEENT: Denies changes in vision and hearing. - RESPIRATORY: Denies SOB and cough. - CV: Denies palpitations and CP. - GI: Denies abdominal pain, nausea, vomiting and diarrhea. - : Denies dysuria and urinary frequency. - MSK: Denies myalgia and joint pain. - SKIN: Denies rash and pruritus. - NEUROLOGICAL: Denies headache, weakness, numbness and syncope. - PSYCHIATRIC: Denies suicidal ideation [facility] ED PFSH: Medical History (Updated 01/29/22 @ 14:02 by AKSHAT Calvo) Amenorrhea Asthma Benign essential HTN Bilateral chronic knee pain Bilateral leg edema Dyslipidemia GERD (gastroesophageal reflux disease) 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 Morbid obesity with BMI of 60.0-69.9, adult Muscle spasms of both lower extremities Pain management contract signed Prolonged depression Spinal stenosis, thoracic region Type 2 diabetes mellitus, with long-term current use of insulin Surgical History History of cholecystectomy Family History Father CAD (coronary artery disease) Diabetes Hypertension Family/Other Cancer Mother Diabetes Hypertension Social History (Updated 01/29/22 @ 14:29 by AKSHAT Calvo) Smoking and tobacco status: current every day smoker cigarettes Packs smoked per day: 1 [ Other cigarette details: 2 packs + daily] Alcohol intake: never Caregiver/support person: Yes Household members: spouse and family Marital status: Current occupational status: disabled Current occupation: disabled History of recent travel: No Female Reproductive History: Date of last menstrual period: 12/18/21 Physical Exam Narrative: EXAM NARRATIVE: - GENERAL: Alert and oriented x 3. No acute distress. Well-nourished. - EYES: EOMI. Anicteric. - HENT: Atraumatic, no C-spine tenderness. Moist mucous membranes. No scleral icterus. No cervical lymphadenopathy. - LUNGS: Clear to auscultation bilaterally. No accessory muscle use. Equal lung sounds bilaterally. No respiratory distress. - CARDIOVASCULAR: Regular rate and rhythm. No murmur. No JVD. - ABDOMEN: Soft, non-tender and non-distended. Negative CVA tenderness bilaterally, no rebound or guarding, negative Aj sign. No palpable masses. - EXTREMITIES: Bilateral lower extremity edema. Worse on the left. Mild tenderness throughout the left leg. Extremities neurovascularly intact. Non- tender. - SKIN: No rashes or lesions. Warm. - NEUROLOGIC: No meningismus or focal neurological deficits. CN II-XII grossly intact. - PSYCHIATRIC: Cooperative. Appropriate mood and affect. Course Vital Signs: Vital signs: Vital Signs Temperature 97.6 F 03/14/22 18:08 Pulse Rate 104 H 03/14/22 18:08 Respiratory Rate 20 H 03/14/22 18:08 Blood Pressure 161/79 03/14/22 18:08 Pulse Oximetry 94 03/14/22 18:08 MDM - General Adult Medical Decision Making 36-year-old presents due to left lower extremity pain and swelling. On exam has mild bilateral lower extremity swelling but worse on the left. Ultrasound does not reveal any sign of DVT. She denies any chest pain or shortness of breath. White count mildly elevated at 15. Possible venous stasis with superimposed cellulitis. Prescription for Keflex provided. BNP level is within normal. At this time I believe patient would be safe for discharge and outpatient follow- up. Return precautions provided. Plan was reviewed with the patient who expressed understanding. Questions answered. Patient will follow up with PCP. Patient discharged in stable condition. Lab Data : 03/14/22 20:28 03/14/22 20:28 Radiology Impressions Venous Duplex 03/14/22 19:06 IMPRESSION: No evidence of deep vein thrombosis. Laboratory Results WBC 15.7 10^3/uL (4.0-10.0) H 03/14/22 20:28 RBC 4.73 10^6/uL (4.1-5.3) 03/14/22 20:28 Hgb 13.4 g/dL (11.5-15.3) 03/14/22: Hct 41.6 % (37.0-47.0) 03/14/22: MCV 87.9 fl (81-99) 03/14/22: MCH 28.3 pg (28.0-34.0) 03/14/22: MCHC 32.2 g/dL (30.0-36.0) 03/14/22: RDW 14.4 % (12.1-15.1) 03/14/22: Plt Count 294 10^3/cmm (130-400) 03/14/22: MPV 10.3 fL (7.4-10.4) 03/14/22: Neut % (Auto) 81.0 % 03/14/22: Lymph % (Auto) 10.5 % 03/14/22: [place] % (Auto) 4.9 % 03/14/22: Eos % (Auto) 1.5 % 03/14/22: Baso % (Auto) 0.4 % 03/14/22: Neut # (Auto) 12.67 10^3/uL (1.8-7.7) H 03/14/22: Lymph # (Auto) 1.7 10^3/uL (0.8-4.8) 03/14/22: [place] # (Auto) 0.8 10^3/uL (0.2-0.9) 03/14/22: Eos # (Auto) 0.2 10^3/uL (0.0-0.8) 03/14/22: Baso # (Auto) 0.1 10^3/uL (0.0-0.1) 03/14/22 Nucleated RBC % (auto) 0 % 03/14/22 Nucleated RBCs # 0.0 /100WBC 03/14/22: Sodium 133 mmol/L (136-145) L 03/14/22: Potassium 4.3 mmol/L (3.5-5.1) 07/07/22 20:28 Chloride 95 mmol/L (98-107) L 03/14/22 20:28 Carbon Dioxide 27 mmol/L (22-29) 03/14/22 20:28 Anion Gap 15.3 (5-19) 03/14/22 20:28 BUN 15 mg/dL (6-20) 03/14/22 20:28 Creatinine 0.8 mg/dL (0.5-0.9) 03/14/22 20:28 GFR Calculation 82.1 mL/min (90-130) L 03/14/22 20:28 Glucose 201 mg/dL (65-115) H 03/14/22 20:28 Calculated Osmolality 283 mOsm/kg (285-295) L 03/14/22 20:28 Calcium 9.5 mg/dL (8.5-10.5) 03/14/22 20:28 Total Bilirubin 0.4 mg/dL (0.15-1.2) 03/14/22 20:28 AST 35 U/L (0-32) H 03/14/22 20:28 ALT 92 U/L (0-33) H 03/14/22 20:28 Alkaline Phosphatase 128 IU/L (35-105) H 03/14/22 20:28 NT-Pro-B Natriuret Pep 32 pg/mL (0-125) 03/14/22 20:28 Total Protein 7.5 g/dL (6.6-8.7) 03/14/22 20:28 Albumin 4.1 g/dL (3.5-5.2) 03/14/22 20:28 Globulin 3.4 g/dL (1.3-4.6) 03/14/22 20:28 Discharge Plan Discharge Condition: Stable Prescriptions: No Action (DME) [place] G4 Transmitter Device See Rx Instructions .Route 0RF Rx Instructions: As directed spironolactone 50 mg tablet 50 mg PO DAILY Qty: 30 3RF ferrous gluconate 324 mg (37.5 mg iron) tablet 324 mg PO DAILY Qty: 30 6RF citalopram 40 mg tablet 40 mg PO DAILY Qty: 90 0RF albuterol sulfate [Ventolin HFA] 90 mcg/actuation HFA aerosol inhaler 2 puff INHALATION Q6H PRN (Reason: Shortness Of Breath Or Wheezing) Qty: 8.5 1RF budesonide-formoterol 160-4.5 mcg/actuation HFA aerosol inhaler 2 inh inhalation BID Qty: 10.2 0RF Rx Instructions: 340 be if unaffordable. (DME) Diabetic shoes with 3 sets of inserts See Rx Instructions .Route .MEDSUPPLY Qty: 1 0RF Rx Instructions: As directed (DME) 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 meter [Accu-Chek Kori Plus Meter] Misc See Rx Instructions .ROUTE .MEDSUPPLY Qty: 1 0RF Rx Instructions: As directed (DME) lancets [Accu-Chek Fastclix Lancet Drum] Misc See Rx Instructions .ROUTE .MEDSUPPLY Qty: 100 1RF Rx Instructions: TWICE DAILY (DME) Accu-Chek Kori Plus test strp Strip See Rx Instructions .ROUTE .MEDSUPPLY Qty: 100 1RF Rx Instructions: twice daily omeprazole 40 mg capsule,delayed release(DR/EC) 40 mg PO DAILY Qty: 90 0RF (DME) FreeStyle Zackery 2 Sensor Kit See Rx Instructions .ROUTE .MEDSUPPLY Qty: 2 3RF Rx Instructions: monitors blood sugars (DME) FreeStyle Zackery 2 [place] Misc See Rx Instructions .ROUTE .MEDSUPPLY Qty: 1 0RF Rx Instructions: used to read sensers (DME) Omnipod Dash Pods (Gen 4) Cartridge See Rx Instructions .Route Qty: 5 3RF Rx Instructions: As directed metformin 500 mg tablet extended release 24 hr 500 mg PO BID Qty: 180 3RF Rx Instructions: Take one tablet by mouth twice a day. gabapentin 300 mg capsule 300 mg PO TID Qty: 240 3RF montelukast [Singulair] 10 mg tablet 10 mg PO DAILY Qty: 90 1RF insulin aspart U-100 [Novolog U-100 Insulin aspart] 100 unit/mL solution See Rx Instructions SUBCUT .COMPLEX Qty: 140 3RF Rx Instructions: maximum 200 units/day through pump amitriptyline 50 mg tablet 50 mg PO DAILY Qty: 90 0RF Rx Instructions: TAKE ONE BY MOUTH DAILY atenolol 25 mg tablet 25 mg PO BID Qty: 180 1RF lisinopril-hydrochlorothiazide 20-25 mg tablet 1 tab PO DAILY Qty: 90 1RF Referrals: Mcmahon,Flores, FRENCH WEAVER-C [Primary Care Provider] - Coding Level of Care Code ED Steam Press Tender for Leonela Escobedo
--- NOTE | 2022-03-14 19:06 | USR_ITS ---
PROCEDURE INFORMATION: Exam: US Duplex Left Lower Extremity Veins, Limited Exam date and time: 03/14/2022 7:38 PM Age: 36 years old Clinical indication: Pain; Leg, lower; Patient HX: Venous duplex imaging was performed in only the left lower extremity. The following venous structures were evaluated: Common femoral vein, profunda vein, proximal portion of the greater saphenous vein, superficial femoral vein, and the popliteal vein. In addition, the posterior tibial veins were evaluated. Serial compression, augmentation maneuvers, and spectral doppler flow evaluation were performed and were normal. On the left side, the common femoral, superficial femoral, profunda femoral, popliteal, posterior tibial, and greater saphenous veins were identified and interrogated in the standard fashion. These veins were found to be easily compressible with spontaneous blood flow and normal augmentation. No evidence of thrombus noted. ; Additional info: Evaluate for dvt TECHNIQUE: Imaging protocol: Real-time Duplex ultrasound of the Left Lower Extremity with 2-D flores scale, color Doppler flow and spectral waveform analysis with image documentation. Limited exam focused on the left lower extremity veins. COMPARISON: US soft tissue/extremity [id number] 03/04/2020 5:48 PM FINDINGS: Left deep veins: Unremarkable. The common femoral, femoral, proximal profunda femoral and popliteal veins are patent without thrombus. Normal Doppler waveforms. Normal compressibility and/or augmentation response. Left superficial veins: Unremarkable. Saphenofemoral junction is patent without thrombus. Soft tissues: Unremarkable. US/[place] [id number] IMPRESSION: No evidence of deep vein thrombosis.
[2022-03-14] MEDS: HYDROcodone-acetaminophen 5-325 mg Tablet 1 TAB PO (19:59)
[2022-03-14 20:33] LABS: Basophils # 0.1 10^3/uL (0.0-0.1); Basophils % 0.4 %; Eosinophils # 0.2 10^3/uL (0.0-0.8); Eosinophils % 1.5 %; Hematocrit 41.6 % (37.0-47.0); Hemoglobin 13.4 g/dL (11.5-15.3); Lymphocytes # 1.7 10^3/uL (0.8-4.8); Lymphocytes % 10.5 %; Mean Corpuscular HGB Conc 32.2 g/dL (30.0-36.0); Mean Corpuscular Hemoglobin 28.3 pg (28.0-34.0); Mean Corpuscular Volume 87.9 fl (81-99); Mean Platelet Volume 10.3 fL (7.4-10.4); Monocytes # 0.8 10^3/uL (0.2-0.9); Monocytes % 4.9 %; Neutrophils # 12.67 10^3/uL (1.8-7.7); Nucleated Red Blood Cells % 0 %; Platelet Count 294 10^3/cmm (130-400); Red Blood Count 4.73 10^6/uL (4.1-5.3); Red Cell Distribution Width 14.4 % (12.1-15.1); White Blood Count 15.7 10^3/uL (4.0-10.0)
[2022-03-14 21:04] LABS: Alanine Aminotransferase 92 U/L (0-33); Albumin Level 4.1 g/dL (3.5-5.2); Alkaline Phosphatase 128 IU/L (35-105); Anion Gap 15.3 (5-19); Aspartate Amino Transferase 35 U/L (0-32); Blood Urea Nitrogen 15 mg/dL (6-20); Calcium 9.5 mg/dL (8.5-10.5); Carbon Dioxide 27 mmol/L (22-29); Chloride 95 mmol/L (98-107); Globulin 3.4 g/dL (1.3-4.6); Glomerular Filtration Rate 82.1 mL/min (90-130); Glucose 201 mg/dL (65-115); NT Pro B Type Natriuretic Pept 32 pg/mL (0-125); Osmolality Calculated 283 mOsm/kg (285-295); Potassium 4.3 mmol/L (3.5-5.1); Sodium 133 mmol/L (136-145); Total Bilirubin 0.4 mg/dL (0.15-1.2); Total Protein 7.5 g/dL (6.6-8.7)
[2022-03-15 01:51] VITALS: BP 156/84; PULSE 94; RESP 20; TEMP 36.4; O2SAT 95
== END 2022-03-14 21:50 | disposition home or self-care (01) ==
PROVIDERS: Emergency Provider Emergency Medicine; PCP Nurse Practitioner Family
DX: M79.89 Other specified soft tissue disorders (principal); I10 Essential (primary) hypertension; E11.9 Type 2 diabetes mellitus without complications
CPT/HCPCS: 80053; 83880; 85025; 93971; 99284

== ENCOUNTER → 2022-03-20 13:36 | Outpatient (BNVA) | payer MEDICARE, MEDICAID, SELFPAY | PROVIDERS: PCP Nurse Practitioner Family; Visit Provider Internal Medicine | DX: E11.40 Type 2 diabetes mellitus with diabetic neuropathy, unspecified (principal); K76.0 Fatty (change of) liver, not elsewhere classified; E66.01 Morbid (severe) obesity due to excess calories; Z68.44 Body mass index [BMI] 60.0-69.9, adult; Z79.891 Long term (current) use of opiate analgesic; Z79.4 Long term (current) use of insulin; Z79.84 Long term (current) use of oral hypoglycemic drugs; F17.210 Nicotine dependence, cigarettes, uncomplicated | CPT/HCPCS: 99214 ==

== ENCOUNTER 2022-04-11 17:07 | Emergency (ER) | payer MEDICARE, MEDICAID, SELFPAY ==
--- NOTE | 2022-04-11 | XRR_ITS ---
PROCEDURE INFORMATION: Exam: XR Sacrum and Coccyx, 2 or More Views Exam date and time: 04/11/2022 8:58 PM Age: 36 years old Clinical indication: Injury or trauma; Fall; Blunt trauma (contusions or hematomas); Additional info: Tailbone pain after fall, better quality images TECHNIQUE: Imaging protocol: XR of the sacrum and coccyx, 2 or more views. COMPARISON: CT abdomen pelvis w con* [id number] 10/03/2021 10:16 PM FINDINGS: Bones/joints: Normal. No acute fracture. Soft tissues: Normal. XR/XR sacrum coccyx min 2V [id number] IMPRESSION: No acute findings.
[2022-04-11 17:46] VITALS: BP 143/83; PULSE 100; RESP 16; TEMP 36.6; O2SAT 94
--- NOTE | 2022-04-11 17:50 | XRR_ITS ---
PROCEDURE INFORMATION: Exam: XR Left Ankle Exam date and time: 04/11/2022 8:45 PM Age: 36 years old Clinical indication: Injury or trauma; Fall; Blunt trauma; Ankle; Left; Additional info: Fall, pain TECHNIQUE: Imaging protocol: Radiologic exam of the Left ankle. Views: 3 or more views. COMPARISON: [place] [id number] 03/14/2022 7:38 PM FINDINGS: Bones/joints: Mild tibiotalar joint osteoarthritis. Soft tissues: Soft tissue swelling about the ankle. XR/XR ankle LT min 3V* [id number] IMPRESSION: 1. Soft tissue swelling about the ankle. 2. Mild tibiotalar joint osteoarthritis.
--- NOTE | 2022-04-11 19:09 | XRR_ITS ---
PROCEDURE INFORMATION: Exam: XR Sacrum and Coccyx, 2 or More Views Exam date and time: 04/11/2022 8:33 PM Age: 36 years old Clinical indication: Injury or trauma; Fall; Blunt trauma (contusions or hematomas); Additional info: Tailbone pain after fall TECHNIQUE: Imaging protocol: XR of the sacrum and coccyx, 2 or more views. COMPARISON: CT abdomen pelvis w con* [id number] 10/03/2021 10:16 PM FINDINGS: Bones/joints: Limited visualization. No acute fracture identified. Soft tissues: Normal. XR/XR sacrum coccyx min 2V [id number] IMPRESSION: No acute findings in this limited examination of the sacrum and coccyx.
--- NOTE | 2022-04-11 20:29 | ED_ITS ---
HPI - Extremity Problem General: Chief complaint: Extremity Injury, Lower Stated complaint: Left ankle injury, Back pain Time Seen by Provider: 04/11/22 20:19 History of Present Illness: Patient is a 36-year-old female comes to the ED with left ankle injury. Injury occurred just prior to arrival. Patient says she was walking around the yard and stepped in a hole causing her to roll her left ankle and she fell backwards and her tailbone hit the ground. She is having some tailbone pain as well. She says her ankle pain is rated 9 out of 10. Weightbearing causes worsening pain and limited range of motion in ankle due to pain. Associated symptoms: Deny chest pain, fever(s) or rash Review of Systems Const: Denies: fever(s), chills or fatigue Eyes: Denies: change in vision or eye discomfort ENMT: Denies: throat pain, odynophagia, nasal discharge or nasal congestion Card: Denies: chest pain, palpitations, edema, swelling of feet/ankles, dyspnea on exertion or orthopnea Resp: Denies: dyspnea, productive cough or non-productive cough GI: Denies: abdominal pain, nausea, vomiting, diarrhea, constipation or hematochezia : Denies: flank pain, dysuria or hematuria Musc: Reports: back pain (Tailbone), extremity pain (Left ankle) and extremity swelling (Left ankle); Denies: neck pain Skin/Breast: Denies: rash or new lesions Neuro: Denies: headache(s), numbness in extremities or weakness in extremities PFS ED PFSH: Medical History Amenorrhea Asthma Benign essential HTN Bilateral chronic knee pain Bilateral leg edema Dyslipidemia GERD (gastroesophageal reflux disease) 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 Morbid obesity with BMI of 60.0-69.9, adult Muscle spasms of both lower extremities Pain management contract signed Prolonged depression Spinal stenosis, thoracic region Type 2 diabetes mellitus, with long-term current use of insulin Surgical History History of cholecystectomy Family History Father CAD (coronary artery disease) Diabetes Hypertension Family/Other Cancer Mother Diabetes Hypertension Social History Smoking and tobacco status: current every day smoker (1-2 ppd) cigarettes Packs smoked per day: 1 [ Other cigarette details: 2 packs + daily] Alcohol intake: never Caregiver/support person: Yes Household members: spouse and family Marital status: Current occupational status: disabled Current occupation: disabled History of recent travel: No Female Reproductive History: Date of last menstrual period: 08/29/21 Physical Exam Const: COMMON NORMALS: patient oriented x3 and alert GENERAL APPEARANCE: cooperative NUTRITIONAL APPEARANCE: obese morbidly obese HENMT: COMMON NORMALS: normocephalic HEAD & SCALP: normocephalic MOUTH: Normal oral and palatal mucosa present THROAT: posterior oropharynx normal and uvula midline Neck/C-Spine: COMMON NORMALS: supple GENERAL: Yes normal visual inspection Resp: COMMON NORMALS: normal respiratory effort, No retractions, No use of accessory muscles and clear to auscultation bilaterally AUSCULTATION: clear to auscultation bilaterally Cardio: COMMON NORMALS: regular rate, regular rhythm, S1 normal heart sound present, S2 normal heart sound present, No gallops present (Cardio), No clicks present (Cardio), No murmurs present (Cardio) and Peripheral pulses 2+ throughout RATE: regular rate RHYTHM: regular rhythm HEART SOUNDS: S1 normal heart sound present and S2 normal heart sound present PERIPHERAL PULSES: Peripheral pulses 2+ throughout GI: COMMON NORMALS: Normal to inspection, nondistended, normoactive bowel sounds present, Soft to palpation, non-tender and no masses PALPATION: Yes Soft to palpation : COMMON NORMALS: Yes no CVA tenderness BLADDER/KIDNEY EXAM: Yes no CVA tenderness Back/Pelvis: COMMON NORMALS: no CVA tenderness Extremity: NARRATIVE EXTREMITY EXAM: Left ankle?no visible deformity noted. Swelling around lateral malleolus. Tenderness over lateral malleolus. Limited range of motion due to pain. Neurovascular intact distally. Neuro: COMMON NORMALS: patient oriented x3 SENSORIUM/ORIENTATION: Yes alert GAIT: Yes Normal gait present Skin: GENERAL SKIN EXAM: dry skin Course Vital Signs: Vital signs: Vital Signs Temperature 97.8 F 04/11/22 17:46 Pulse Rate 92 04/11/22 21:54 Respiratory Rate 18 04/11/22 21:54 Blood Pressure 135/98 04/11/22 21:54 Pulse Oximetry 92 04/11/22 21:54 MDM - Extremity (Nontraumatic) Medical Decision Making Patient is a 36-year-old female comes to the ED with tailbone pain and left ankle pain after fall. Patient had a rolled ankle injury on the left ankle when stepping in a hole and then fell backwards and injured her tailbone. Vitals are stable. Patient has significant swelling around lateral malleolus along with tenderness. She is able to weight-bear on it with some pain. X-ray of left ankle showed no acute fractures and x-ray of tailbone showed no acute fractures. Patient was diagnosed with ankle sprain and strain and was discharged home with some crutches. I placed an order with case management for patient be referred to Ortho for follow-up on ankle sprain. Patient discharged home with crutches. Return to ED precautions given. Patient understood agree with plan. Lab Data Radiology Impressions Ankle X-Ray 04/11/22 17:50 IMPRESSION: 1. Soft tissue swelling about the ankle. 2. Mild tibiotalar joint osteoarthritis. ADDENDUM: 04/11/222151 Punctate chronic appearing calcification at the tip of the medial malleolus, negative for acute fracture or dislocation. Discharge Plan Discharge Patient Disposition: Home Clinical Impression: Sprain and strain of ankle Condition: Stable Prescriptions: New acetaminophen 500 mg tablet 500 mg PO Q6H PRN (Reason: pain) Qty: 30 0RF No Action (DME) Dexcom G4 Transmitter Device See Rx Instructions .Route Rx Instructions: As directed (DME) Diabetic shoes with 3 sets of inserts See Rx Instructions .Route .MEDSUPPLY Qty: 1 0RF Rx Instructions: As directed (DME) 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 meter [Accu-Chek Kori Plus Meter] [facility] [place] See Rx Instructions .ROUTE .MEDSUPPLY Qty: 1 0RF Rx Instructions: As directed (DME) lancets [Accu-Chek Fastclix Lancet Drum] [facility] [place] [place] See Rx Instructions .ROUTE .MEDSUPPLY Qty: 100 1RF Rx Instructions: TWICE DAILY (DME) Accu-Chek Kori Plus test strp Strip See Rx Instructions .ROUTE .MEDSUPPLY Qty: 100 1RF Rx Instructions: twice daily omeprazole 40 mg capsule,delayed release(DR/EC) 40 mg PO DAILY Qty: 90 0RF (DME) FreeStyle Zackery 2 Sensor Kit See Rx Instructions .ROUTE .MEDSUPPLY Qty: 2 3RF Rx Instructions: monitors blood sugars (DME) FreeStyle Zackery 2 [place] Misc See Rx Instructions .ROUTE .MEDSUPPLY Qty: 1 0RF Rx Instructions: used to read sensers (DME) Omnipod Dash Pods (Gen 4) Cartridge See Rx Instructions .Route Qty: 5 3RF Rx Instructions: As directed albuterol sulfate [Ventolin HFA] 90 mcg/actuation HFA aerosol inhaler 2 puff INHALATION Q6H PRN (Reason: Shortness Of Breath Or Wheezing) Qty: 8.5 1RF amitriptyline 50 mg tablet 50 mg PO DAILY Qty: 90 0RF Rx Instructions: TAKE ONE BY MOUTH DAILY budesonide-formoterol 160-4.5 mcg/actuation HFA aerosol inhaler 2 inh inhalation BID Qty: 10.2 0RF Rx Instructions: 340 be if unaffordable. citalopram 40 mg tablet 40 mg PO DAILY Qty: 90 0RF ferrous gluconate 324 mg (37.5 mg iron) tablet 324 mg PO DAILY Qty: 30 6RF gabapentin 300 mg capsule 300 mg PO TID Qty: 240 3RF montelukast [Singulair] 10 mg tablet 10 mg PO DAILY Qty: 90 1RF naproxen [EC-Naproxen] 375 mg tablet,delayed release (DR/EC) 375 mg PO Q12H PRN (Reason: pain) Qty: 20 0RF Rx Instructions: TAKE WITH FOOD. Avoid taking on an empty stomach metformin 500 mg tablet extended release 24 hr 500 mg PO BID Qty: 180 3RF Rx Instructions: Take one tablet by mouth twice a day. insulin aspart U-100 [Novolog U-100 Insulin aspart] 100 unit/mL solution See Rx Instructions SUBCUT .COMPLEX Qty: 140 3RF Rx Instructions: maximum 200 units/day through pump furosemide 40 mg tablet 40 mg PO DIRECTED Qty: 95 3RF Rx Instructions: Take 40mg BID X5 days then decrease to 40mg once daily potassium chloride 20 mEq tablet extended release 20 meq PO DIRECTED Qty: 95 3RF Rx Instructions: Take 20mEq BID X5 days then decrease to 20mEq once daily atenolol 25 mg tablet 25 mg PO BID Qty: 180 1RF lisinopril-hydrochlorothiazide 20-25 mg tablet 1 tab PO DAILY Qty: 90 1RF spironolactone 50 mg tablet 50 mg PO DAILY Qty: 90 1RF Discharge Orders: Discharge ED (Routine); Ordered 04/11/22 Ordered By: Quinn Zhong Referrals: Flores Mcmahon FNP-C [Primary Care Provider] - Discharge Diet: Regular Discharge Activity: Increase activity as tolerated Patient Instructions: Ankle Sprain (ED) Activity Restrictions/Additional Instructions: Follow-up with medical provider as directed. Case management should be contacting you in the next several days set up an appointment with Ortho for follow-up of ankle sprain. Rest, ice and elevate left ankle. Use crutches to help with ambulation and limit weightbearing. take medications as prescribed. Return to the ER or your medical provider if condition worsens. Please read and understand discharge instructions. Thank you for choosing [facility] for your healthcare needs today. Please realize this is an emergency room and that we are providing you with a medical screening exam and this may not be complete and all inclusive of all the testing and or work up that you may need to determine your ailment or severity of your illness. It is very important that you follow up as instructed or that you return to the Emergency Department should you have concerns or if your condition changes or worsens in any way. Coding Level of Care Code ED Peer Tutor for Leonela Escobedo Exam Comprehensive
[2022-04-11] MEDS: HYDROcodone-acetaminophen 5-325 mg Tablet 1 TAB PO (20:58)
[2022-04-11 21:54] VITALS: BP 135/98; PULSE 92; RESP 18; O2SAT 92
--- NOTE | 2022-04-12 10:30 | DCPLANNER ---
Addendum entered by Peyton Simpson 05/23/22 09:29: Patient had a follow up appointment with ortho - patient did attend appointment. Addendum entered by Peyton Simpson 04/18/22 14:33: Patient has a follow up appointment scheduled for April at 9:[address] Healy at ortho. Clinic will call patient with appointment information. Original Note: manager strategic partnerships had message to schedule a follow up appointment for patient with ortho. manager strategic partnerships sent patients information to the front office staff at ortho. Patients information will be printed and reviewed. Clinic will call patient with appointment information.
== END 2022-04-11 21:55 | disposition home or self-care (01) ==
PROVIDERS: Emergency Provider Physician Assistant; PCP Nurse Practitioner Family
DX: S93.402A Sprain of unspecified ligament of left ankle, initial encounter (principal); S96.912A Strain of unspecified muscle and tendon at ankle and foot level, left foot, initial encounter; Z79.84 Long term (current) use of oral hypoglycemic drugs; Z79.4 Long term (current) use of insulin; I10 Essential (primary) hypertension; E78.5 Hyperlipidemia, unspecified; E11.9 Type 2 diabetes mellitus without complications; F17.210 Nicotine dependence, cigarettes, uncomplicated; X50.1XXA Overexertion from prolonged static or awkward postures, initial encounter
CPT/HCPCS: 72220; 73610; 99283; E0114

== ENCOUNTER 2022-04-15 13:52 | Outpatient (CLI) | payer MEDICARE, MEDICAID, SELFPAY ==
--- NOTE | 2022-04-15 15:15 | MR_ITS ---
WS: [id number] MRI THORACIC SPINE noncontrast HISTORY: Fall with injury COMPARISON: 02/08/2020 TECHNIQUE: Multiplanar sequences are performed in sagittal and axial planes. Quality of this examination is significantly degraded by body habitus. Mild curvature of the thoracic spine. T1-2: Normal. T2-3: Normal. T3-4: Normal. T4-5: Normal. T5-6: Normal. T6-7: Normal. T7-8: Small RIGHT paracentral disc protrusion contacts the RIGHT lateral thecal sac. T8-9: Mild diffuse annular disc bulging with moderate RIGHT paracentral disc protrusion contacting a nd deforming the RIGHT lateral thecal sac. T9-10: Moderate facet joint arthritis and ligamentum flavum encroaching into the thecal sac. Small o steophytes. Mild central and bilateral foraminal stenosis. T10-11: Marked ligamentum flavum and facet arthritis encroaching into the central canal with mild os teophytic ridging and disc bulging. Moderate central and bilateral foraminal stenosis. There is mild myelomalacia within the thoracic cord at this level. Similar findings were noted on the prior MRI 01/06. T11-12: Normal. Signal abnormality within the cord at T9-10 is not as apparent on today's examination. MR/MR thoracic spin wo con* [id number] IMPRESSION: 1. Quality of this examination is significantly degraded by patient's body hab itus. 2. Moderate central and bilateral foraminal stenosis at T10-11 due to disc, li gamentum flavum and facet arthritis. There is also mild myelomalacia of the tho racic cord. Similar to the prior study of 01/21/2020. 3. Additional small RIGHT paracentral disc protrusion at T7-8 and moderate RIG HT paracentral disc protrusion at T8-9 contacting the thoracic cord.
== END 2022-04-15 13:53 | disposition home or self-care (01) ==
PROVIDERS: PCP Nurse Practitioner Family; Visit Provider Nurse Practitioner Family
DX: G89.29 Other chronic pain (principal); R29.6 Repeated falls; M48.04 Spinal stenosis, thoracic region; M51.24 Other intervertebral disc displacement, thoracic region
CPT/HCPCS: 72146

== ENCOUNTER 2022-04-15 13:55 | Outpatient (CLI) | payer MEDICARE, MEDICAID, SELFPAY ==
[2022-04-15 15:29] LABS: Estmated Average Glucose 186; Hemoglobin A1C 8.1 % (4.0-6.0)
== END 2022-04-15 13:56 | disposition home or self-care (01) ==
LOC: LAB 13:57
PROVIDERS: PCP Nurse Practitioner Family; Visit Provider Internal Medicine
DX: E11.9 Type 2 diabetes mellitus without complications (principal); Z79.4 Long term (current) use of insulin; Z79.891 Long term (current) use of opiate analgesic
CPT/HCPCS: 36415; 83036

== ENCOUNTER 2022-04-16 18:09 | Emergency (ER) | payer MEDICARE, MEDICAID, SELFPAY ==
[2022-04-16 18:20] VITALS: BP 139/83; PULSE 101; RESP 18; TEMP 36.6; O2SAT 93; BMI 63.8
--- NOTE | 2022-04-16 18:35 | ED_ITS ---
HPI - Back Pain/Injury General: Chief Complaint: Back Pain/Injury Stated Complaint: Back Injury Time Seen by Provider: 04/16/22 18:29 History of Present Illness: 36-year-old female comes in today for complaints of mid back pain. Patient was sitting in the chair and had stood up to get something and when she sat back down the chair had rolled backwards on her. Patient ended up sitting on the floor which aggravated her mid back. Patient has chronic thoracic pain. Patient recently had an MRI that showed some bulging disks to the mid back around T11-T12. Patient reports that she believes the incident has just aggravated her pain. Patient reports that the pain is not significantly worse but is uncomfortable and is looking for medications for pain control. Patient denies any difficulty urinating. Patient is able to stand. 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 Morbid obesity with BMI of 60.0-69.9, adult Muscle spasms of both lower extremities Pain management contract signed Prolonged depression Spinal stenosis, thoracic region Type 2 diabetes mellitus, with long-term current use of insulin Surgical History History of cholecystectomy Family History Father CAD (coronary artery disease) Diabetes Hypertension Family/Other Cancer Mother Diabetes Hypertension Social History Smoking and tobacco status: current every day smoker (1-2 ppd) cigarettes Packs smoked per day: 1 [ Other cigarette details: 2 packs + daily] Alcohol intake: never Caregiver/support person: Yes Household members: spouse and family Marital status: Current occupational status: disabled Current occupation: disabled History of recent travel: No Female Reproductive History: Date of last menstrual period: 08/29/21 Physical Exam Const: COMMON NORMALS: alert Neck/C-Spine: COMMON NORMALS: full ROM Resp: COMMON NORMALS: normal respiratory effort and clear to auscultation bilaterally AUSCULTATION: clear to auscultation bilaterally Cardio: COMMON NORMALS: regular rate RATE: regular rate Back/Pelvis: THORACIC SPINE/UPPER BACK: Yes thoracic spinal tenderness and Yes paraspinal muscle tenderness LUMBAR SPINE/LOWER BACK: Yes lumbar spinal tenderness and Yes paraspinal muscle tenderness Neuro: SENSORIUM/ORIENTATION: Yes alert Skin: COMMON NORMALS: no rashes or lesions noted GENERAL SKIN EXAM: no rashes or lesions noted Course Vital Signs: Vital signs: Vital Signs Temperature 98 F 04/16/22 18:20 Pulse Rate 101 H 04/16/22 18:20 Respiratory Rate 18 04/16/22 18:20 Blood Pressure 139/83 04/16/22 18:20 Pulse Oximetry 93 04/16/22 18:20 Oxygen Delivery Me thod 04/16/22 18:20 MDM - Back Pain/Injury Medical Decision Making Patient comes in for evaluation of back pain after sitting on the ground. On exam patient has some muscle tenderness and some spinal tenderness on palpation of the spine. Patient moves all extremities well. Sensation is intact. Patient denies any loss of bowel or bladder control. Differential diagnosis includes intervertebral disc disease, facet arthropathy, contusion. At this time there is no sign of any need for x-rays. Patient just recently had an MRI on the fourth of this month that showed some intervertebral disc disease. We will treat patient with a dose of hydrocodone and she will have a short prescription of 10 tablets. Patient should continue care with primary care and her pain specialist. Discharge Plan Discharge Patient Disposition: Home Clinical Impression: Fall Qualifiers: Encounter type: initial encounter Qualified Code(s): W19.XXXA - Unspecified fall, initial encounter Back pain Qualifiers: Back pain location: low back pain Chronicity: unspecified Back pain laterality: midline Sciatica presence: without sciatica Qualified Code(s): M54.50 - Low back pain, unspecified Condition: Stable Prescriptions: New hydrocodone-acetaminophen 5-325 mg tablet 1 tab PO BID PRN (Reason: pain) Qty: 10 0RF No Action (DME) Dexcom G4 Transmitter Device See Rx Instructions .Route Rx Instructions: As directed (DME) Diabetic shoes with 3 sets of inserts See Rx Instructions .Route .MEDSUPPLY Qty: 1 0RF Rx Instructions: As directed (DME) 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 meter [Accu-Chek Kori Plus Meter[place] [facility] [place]ructions .ROUTE .MEDSUPPLY Qty: 1 0RF Rx Instructions: As directed ([facility] [place]) lancets [Accu-Chek Fastclix Lancet Drum] Misc See Rx Instructions .ROUTE .MEDSUPPLY Qty: 100 1RF Rx Instructions: TWICE DAILY (DME) Accu-Chek Kori Plus test strp Strip See Rx Instructions .ROUTE .MEDSUPPLY Qty: 100 1RF Rx Instructions: twice daily omeprazole 40 mg capsule,delayed release(DR/EC) 40 mg PO DAILY Qty: 90 0RF (DME) FreeStyle Zackery 2 Sensor Kit See Rx Instructions .ROUTE .MEDSUPPLY Qty: 2 3RF Rx Instructions: monitors blood sugars ([facility] [place]) FreeStyle Zackery 2 Delia Mis See Rx Instructions .ROUTE .MEDSUPPLY Qty: 1 0RF Rx Instructions: used to read sensers ([facility] [place]) Centice Dash Pods (Gen 4) Cartridge See Rx Instructions .Route Qty: 5 3RF Rx Instructions: As directed albuterol sulfate [Ventolin HFA] 90 mcg/actuation HFA aerosol inhaler 2 puff INHALATION Q6H PRN (Reason: Shortness Of Breath Or Wheezing) Qty: 8.5 1RF amitriptyline 50 mg tablet 50 mg PO DAILY Qty: 90 0RF Rx Instructions: TAKE ONE BY MOUTH DAILY budesonide-formoterol 160-4.5 mcg/actuation HFA aerosol inhaler 2 inh inhalation BID Qty: 10.2 0RF Rx Instructions: 340 be if unaffordable. citalopram 40 mg tablet 40 mg PO DAILY Qty: 90 0RF ferrous gluconate 324 mg (37.5 mg iron) tablet 324 mg PO DAILY Qty: 30 6RF gabapentin 300 mg capsule 300 mg PO TID Qty: 240 3RF montelukast [Singulair] 10 mg tablet 10 mg PO DAILY Qty: 90 1RF naproxen [EC-Naproxen] 375 mg tablet,delayed release (DR/EC) 375 mg PO Q12H PRN (Reason: pain) Qty: 20 0RF Rx Instructions: TAKE WITH FOOD. Avoid taking on an empty stomach metformin 500 mg tablet extended release 24 hr 500 mg PO BID Qty: 180 3RF Rx Instructions: Take one tablet by mouth twice a day. insulin aspart U-100 [Novolog U-100 Insulin aspart] 100 unit/mL solution See Rx Instructions SUBCUT .COMPLEX Qty: 140 3RF Rx Instructions: maximum 200 units/day through pump furosemide 40 mg tablet 40 mg PO DIRECTED Qty: 95 3RF Rx Instructions: Take 40mg BID X5 days then decrease to 40mg once daily potassium chloride 20 mEq tablet extended release 20 meq PO DIRECTED Qty: 95 3RF Rx Instructions: Take 20mEq BID X5 days then decrease to 20mEq once daily atenolol 25 mg tablet 25 mg PO BID Qty: 180 1RF lisinopril-hydrochlorothiazide 20-25 mg tablet 1 tab PO DAILY Qty: 90 1RF spironolactone 50 mg tablet 50 mg PO DAILY Qty: 90 1RF acetaminophen 500 mg tablet 500 mg PO Q6H PRN (Reason: pain) Qty: 30 0RF Discharge Orders: Discharge ED (Routine); Ordered 04/16/22 Ordered By: Herb Nathan Referrals: Flores Mcmahon FNP-C [Primary Care Provider] - Discharge Diet: Usual diet Discharge Activity: Increase activity as tolerated Patient Instructions: Back Pain (ED), Opioid Safety Activity Restrictions/Additional Instructions: Activity as tolerated. Use a walker to ambulate. Use acetaminophen and ibuprofen to control pain. Use hydrocodone for severe pain. Follow-up with primary care for further instruction. Return to ER for new concerns. Coding Level of Care Code ED Firestop/Containment Worker for Leonela Escobedo
[2022-04-16] MEDS: HYDROcodone-acetaminophen 5-325 mg Tablet 1 TAB PO (18:41)
== END 2022-04-16 19:12 | disposition home or self-care (01) ==
PROVIDERS: Emergency Provider Nurse Practitioner Family; PCP Nurse Practitioner Family
DX: M54.50 Low back pain, unspecified (principal); Z79.84 Long term (current) use of oral hypoglycemic drugs; Z79.4 Long term (current) use of insulin; I10 Essential (primary) hypertension; E78.5 Hyperlipidemia, unspecified; E11.9 Type 2 diabetes mellitus without complications; F17.210 Nicotine dependence, cigarettes, uncomplicated
CPT/HCPCS: 99283

== ENCOUNTER 2022-04-21 17:41 | Emergency (ER) | payer MEDICARE, MEDICAID, SELFPAY ==
[2022-04-21 17:59] VITALS: BP 148/88; PULSE 104; RESP 18; TEMP 36.4; O2SAT 94; BMI 63.8
[2022-04-21 19:36] VITALS: BP 141/86; PULSE 99; RESP 20; O2SAT 95
--- NOTE | 2022-04-21 19:56 | XRR_ITS ---
PROCEDURE INFORMATION: Exam: XR Right Shoulder Exam date and time: 04/21/2022 8:05 PM Age: 36 years old Clinical indication: Injury or trauma; Other: Tree branch fell on PT; Blunt trauma (contusions or hematomas); Injury date: Last night; Patient HX: Tree branch fell on PT right shoulder. C/O pain RT shoulder and decreased rom TECHNIQUE: Imaging protocol: Radiologic exam of the Right shoulder. Views: 2 or more views. COMPARISON: CR XR chest 1V portable [id number] 01/12/2022 8:45 PM FINDINGS: Bones/joints: No acute fracture dislocation. Mild chronic AC joint hypertrophy with inferior osteophytes which may contribute to rotator cuff impingement. Soft tissues: Normal. Other findings: Three views submitted. XR/XR shoulder RT min 2V* [id number] IMPRESSION: No acute findings.
--- NOTE | 2022-04-21 19:57 | W.ED.FALL ---
HPI - Fall General: Chief Complaint: Fall Stated Complaint: back pain Time Seen by Provider: 04/21/22 19:54 Source: patient Mode of arrival: ambulatory History of Present Illness: 36-year-old female who states that she had tripped over a log last night and fell onto her right shoulder states been having pain in her right trapezius and right shoulder states is worse with movement of her right arm and when she tries to look to the right denies any numbness or tingling denies any weakness denies any midline neck pain she denies hitting her head or any other injuries. Associated symptoms-after fall: Denies abdominal pain, chest pain or headache(s) Review of Systems Const: Denies: fever(s), chills, body aches or change in appetite Eyes: Denies: blurry vision or eye discomfort ENMT: Denies: throat pain or dental pain Card: Denies: chest pain Resp: Denies: dyspnea GI: Denies: abdominal pain, nausea, vomiting or diarrhea : Denies: dysuria Musc: Reports: extremity pain Skin/Breast: Denies: rash Neuro: Denies: headache(s) Psych: Denies: depression Sunday/Lymph: Denies: easy bruising All/Imm: Denies: urticaria PFSH ED PFSH: Medical History (Updated 04/21/22 @ 20:13 by Kat Yang MD) Amenorrhea Asthma Benign essential HTN Bilateral chronic knee pain Bilateral leg edema Dyslipidemia GERD (gastroesophageal reflux disease) 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 Morbid obesity with BMI of 60.0-69.9, adult Muscle spasms of both lower extremities Pain management contract signed Prolonged depression Spinal stenosis, thoracic region Type 2 diabetes mellitus, with long-term current use of insulin Surgical History History of cholecystectomy Family History Father CAD (coronary artery disease) Diabetes Hypertension Family/Other Cancer Mother Diabetes Hypertension Social History Smoking and tobacco status: current every day smoker (1-2 ppd) cigarettes Packs smoked per day: 1 [ Other cigarette details: 2 packs + daily] Alcohol intake: never Caregiver/support person: Yes Household members: spouse and family Marital status: Current occupational status: disabled Current occupation: disabled History of recent travel: No Female Reproductive History: Date of last menstrual period: 08/29/21 Physical Exam Const: COMMON NORMALS: no acute distress, patient oriented x3 and healthy appearing HENMT: COMMON NORMALS: normocephalic and atraumatic HEAD & SCALP: normocephalic and atraumatic Eye: COMMON NORMALS: Equal, round and reactive pupils present and EOMs intact bilaterally PUPIL: Yes Equal, round and reactive pupils present Neck/C-Spine: COMMON NORMALS: full ROM and supple Chest: COMMONS NORMALS: normal inspection of the chest and normal palpation of entire chest wall Resp: COMMON NORMALS: normal respiratory effort, No retractions, No use of accessory muscles and clear to auscultation bilaterally AUSCULTATION: clear to auscultation bilaterally Cardio: COMMON NORMALS: regular rate, regular rhythm and No murmurs present (Cardio) RATE: regular rate RHYTHM: regular rhythm GI: COMMON NORMALS: Normal to inspection, nondistended, normoactive bowel sounds present, Soft to palpation, non-tender and no masses PALPATION: Yes Soft to palpation Extremity: NARRATIVE EXTREMITY EXAM: Tenderness over right shoulder and right trapezius no obvious deformity she has full range of motion. Neuro: COMMON NORMALS: patient oriented x3, moves all extremities and no focal motor deficits Psych: COMMON NORMALS: mental status grossly normal, Normal thought process present and cooperative THOUGHT PROCESS: Normal thought process present Skin: COMMON NORMALS: no rashes or lesions noted and no wounds GENERAL SKIN EXAM: no rashes or lesions noted Course Vital Signs: Vital signs: Vital Signs Temperature 97.6 F 04/21/22 17:59 Pulse Rate 99 04/21/22 19:36 Respiratory Rate 20 H 04/21/22 19:36 Blood Pressure 141/86 04/21/22 19:36 Pulse Oximetry 95 04/21/22 19:36 MDM - Fall Medical Decision Making Patient presents here with a shoulder sprain from a fall she has no signs of neck injury no midline tenderness her x-ray of her shoulder is normal we will place her on muscle relaxants she is to ice it as well she is to follow-up with PCP and return if worsening Discharge Plan Discharge Patient Disposition: Home Clinical Impression: Sprain of shoulder, right Qualifiers: Encounter type: initial encounter Shoulder sprain type: unspecified sprain Qualified Code(s): S43.401A - Unspecified sprain of right shoulder joint, initial encounter Condition: Stable Prescriptions: New methocarbamol 750 mg tablet 750 mg PO Q6H PRN (Reason: spasms) Qty: 20 0RF No Action (DME) Dexcom G4 Transmitter Device See Rx Instructions .Route Rx Instructions: As directed (DME) Diabetic shoes with 3 sets of inserts See Rx Instructions .Route .MEDSUPPLY Qty: 1 0RF Rx Instructions: As directed (DME) 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 meter [Accu-Chek Kori Plus Meter] Misc See Rx Instructions .ROUTE .MEDSUPPLY Qty: 1 0RF Rx Instructions: As directed (DME) lancets [Accu-Chek Fastclix Lancet Drum] Misc See Rx Instructions .ROUTE .MEDSUPPLY Qty: 100 1RF Rx Instructions: TWICE DAILY (DME) Accu-Chek Kori Plus test strp Strip See Rx Instructions .ROUTE .MEDSUPPLY Qty: 100 1RF Rx Instructions: twice daily omeprazole 40 mg capsule,delayed release(DR/EC) 40 mg PO DAILY Qty: 90 0RF (DME) FreeStyle Zackery 2 Sensor Kit See Rx Instructions .ROUTE .MEDSUPPLY Qty: 2 3RF Rx Instructions: monitors blood sugars (DME) FreeStyle Zackery 2 [place] Misc See Rx Instructions .ROUTE .MEDSUPPLY Qty: 1 0RF Rx Instructions: used to read sensers (DME) Omnipod Dash Pods (Gen 4) Cartridge See Rx Instructions .Route Qty: 5 3RF Rx Instructions: As directed albuterol sulfate [Ventolin HFA] 90 mcg/actuation HFA aerosol inhaler 2 puff INHALATION Q6H PRN (Reason: Shortness Of Breath Or Wheezing) Qty: 8.5 1RF amitriptyline 50 mg tablet 50 mg PO DAILY Qty: 90 0RF Rx Instructions: TAKE ONE BY MOUTH DAILY budesonide-formoterol 160-4.5 mcg/actuation HFA aerosol inhaler 2 inh inhalation BID Qty: 10.2 0RF Rx Instructions: 340 be if unaffordable. citalopram 40 mg tablet 40 mg PO DAILY Qty: 90 0RF ferrous gluconate 324 mg (37.5 mg iron) tablet 324 mg PO DAILY Qty: 30 6RF gabapentin 300 mg capsule 300 mg PO TID Qty: 240 3RF montelukast [Singulair] 10 mg tablet 10 mg PO DAILY Qty: 90 1RF naproxen [EC-Naproxen] 375 mg tablet,delayed release (DR/EC) 375 mg PO Q12H PRN (Reason: pain) Qty: 20 0RF Rx Instructions: TAKE WITH FOOD. Avoid taking on an empty stomach metformin 500 mg tablet extended release 24 hr 500 mg PO BID Qty: 180 3RF Rx Instructions: Take one tablet by mouth twice a day. insulin aspart U-100 [Novolog U-100 Insulin aspart] 100 unit/mL solution See Rx Instructions SUBCUT .COMPLEX Qty: 140 3RF Rx Instructions: maximum 200 units/day through pump furosemide 40 mg tablet 40 mg PO DIRECTED Qty: 95 3RF Rx Instructions: Take 40mg BID X5 days then decrease to 40mg once daily potassium chloride 20 mEq tablet extended release 20 meq PO DIRECTED Qty: 95 3RF Rx Instructions: Take 20mEq BID X5 days then decrease to 20mEq once daily atenolol 25 mg tablet 25 mg PO BID Qty: 180 1RF lisinopril-hydrochlorothiazide 20-25 mg tablet 1 tab PO DAILY Qty: 90 1RF spironolactone 50 mg tablet 50 mg PO DAILY Qty: 90 1RF acetaminophen 500 mg tablet 500 mg PO Q6H PRN (Reason: pain) Qty: 30 0RF hydrocodone-acetaminophen 5-325 mg tablet 1 tab PO BID PRN (Reason: pain) Qty: 10 0RF Discharge Orders: Discharge ED (Routine); Ordered 04/21/22 Ordered By: Kat Yang Referrals: Flores Mcmahon FNP-C [Primary Care Provider] - Discharge Diet: Advance as tolerated Discharge Activity: Resume usual activity Patient Instructions: Shoulder Sprain (ED) Coding Level of Care Code ED 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
[2022-04-21] MEDS: HYDROcodone-acetaminophen 5-325 mg Tablet 1 TAB PO (20:33)
[2022-04-21 20:34] VITALS: BP 138/74; PULSE 97; RESP 20; O2SAT 96
== END 2022-04-21 20:35 | disposition home or self-care (01) ==
PROVIDERS: Emergency Provider Emergency Medicine; PCP Nurse Practitioner Family
DX: S43.401A Unspecified sprain of right shoulder joint, initial encounter (principal); Z79.84 Long term (current) use of oral hypoglycemic drugs; Z79.4 Long term (current) use of insulin; I10 Essential (primary) hypertension; E78.5 Hyperlipidemia, unspecified; E11.9 Type 2 diabetes mellitus without complications; F17.210 Nicotine dependence, cigarettes, uncomplicated; W18.09XA Striking against other object with subsequent fall, initial encounter
CPT/HCPCS: 73030; 99283

== ENCOUNTER → 2022-04-30 11:43 | Outpatient (BNVA) | payer MEDICARE, MEDICAID, SELFPAY | PROVIDERS: PCP Nurse Practitioner Family; Visit Provider Internal Medicine Cardiovascular Disease | DX: F41.1 Generalized anxiety disorder (principal); F79 Unspecified intellectual disabilities; E11.22 Type 2 diabetes mellitus with diabetic chronic kidney disease; N18.9 Chronic kidney disease, unspecified; Z79.4 Long term (current) use of insulin; F17.219 Nicotine dependence, cigarettes, with unspecified nicotine-induced disorders; R07.9 Chest pain, unspecified; E66.01 Morbid (severe) obesity due to excess calories; Z68.44 Body mass index [BMI] 60.0-69.9, adult | CPT/HCPCS: 99213; 99214 ==

== ENCOUNTER → 2022-05-16 09:42 | Outpatient (BNVA) | payer MEDICARE, MEDICAID, SELFPAY | PROVIDERS: PCP Nurse Practitioner Family; Visit Provider Podiatrist Foot & Ankle Surgery | DX: S82.55XA Nondisplaced fracture of medial malleolus of left tibia, initial encounter for closed fracture (principal); X50.9XXA Other and unspecified overexertion or strenuous movements or postures, initial encounter | CPT/HCPCS: 73610; 99204 ==

== ENCOUNTER 2022-05-16 10:42 | Outpatient (CLI) | payer MEDICARE, MEDICAID, SELFPAY | END 2022-05-16 10:43 | disposition home or self-care (01) | LOC: SPT 10:43 | PROVIDERS: PCP Nurse Practitioner Family; Visit Provider Podiatrist Foot & Ankle Surgery | DX: S82.52XD Displaced fracture of medial malleolus of left tibia, subsequent encounter for closed fracture with routine healing (principal); X58.XXXD Exposure to other specified factors, subsequent encounter | CPT/HCPCS: 97760; 99204; L1902 ==

== ENCOUNTER 2022-05-20 13:25 | Emergency (ER) | payer MEDICARE, MEDICAID, SELFPAY ==
[2022-05-20 13:30] VITALS: BP 146/79; PULSE 99; RESP 22; TEMP 36.8; O2SAT 94; BMI 63.8
--- NOTE | 2022-05-20 14:02 | W.ED.BACK ---
HPI - Back Pain/Injury General: Chief Complaint: Back Pain/Injury Stated Complaint: Back pain, burning Time Seen by Provider: 05/20/22 13:56 History of Present Illness: Patient is a 36-year-old female comes to the ED with back pain. Symptoms started last night. Patient states she woke up and had pain in the middle of her back between her shoulder blades. She has chronic back pain in is scheduled to see pain management within the next month. Any movement in upper back or arms causes worsening pain. She rates back pain a 10 out of 10. Denies any fall, injury or trauma to cause upper back pain. Associated symptoms: Deny abdominal pain, chills, dysuria, fatigue, fever(s), hematuria, nausea or vomiting Review of Systems Const: Denies: fever(s), chills or fatigue Eyes: Denies: change in vision or eye discomfort ENMT: Denies: throat pain, odynophagia, nasal discharge or nasal congestion Card: Denies: chest pain, palpitations, edema, swelling of feet/ankles, dyspnea on exertion or orthopnea Resp: Denies: dyspnea, productive cough or non-productive cough GI: Denies: abdominal pain, nausea, vomiting, diarrhea, constipation or hematochezia : Denies: flank pain, dysuria or hematuria Musc: Reports: back pain; Denies: neck pain or extremity swelling Skin/Breast: Denies: rash or new lesions Neuro: Denies: headache(s), numbness in extremities or weakness in extremities PFSH ED PFSH: Medical History Amenorrhea Asthma Benign essential HTN Bilateral chronic knee pain Bilateral leg edema Dyslipidemia GERD (gastroesophageal reflux disease) 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 Morbid obesity with BMI of 60.0-69.9, adult Muscle spasms of both lower extremities Pain management contract signed Prolonged depression Spinal stenosis, thoracic region Type 2 diabetes mellitus, with long-term current use of insulin Surgical History History of cholecystectomy Family History Father CAD (coronary artery disease) Diabetes Hypertension Family/Other Cancer Mother Diabetes Hypertension Social History Smoking and tobacco status: current every day smoker cigarettes Packs smoked per day: 1 Years cigarettes smoked: 20 [ Other cigarette details: 2 packs + daily] Quit status (tobacco): considering quitting Second hand smoke exposure: Yes Smoking risk assessment/counseling performed?: No Alcohol intake: former Year of sobriety/quit date alcohol: 2017 Desire information about alcohol rehabilitation?: No Counseling given: No Desire information about substance/drug rehabilitation?: No Counseling given: No Caregiver/support person: Yes Household members: spouse and family Marital status: Current occupational status: disabled Current occupation: disabled History of recent travel: No Female Reproductive History: Date of last menstrual period: 08/29/21 Physical Exam Const: COMMON NORMALS: no acute distress, patient oriented x3 and alert GENERAL APPEARANCE: cooperative NUTRITIONAL APPEARANCE: obese morbidly obese HENMT: COMMON NORMALS: normocephalic HEAD & SCALP: normocephalic MOUTH: Normal oral and palatal mucosa present THROAT: posterior oropharynx normal and uvula midline Neck/C-Spine: COMMON NORMALS: supple GENERAL: Yes normal visual inspection Resp: COMMON NORMALS: normal respiratory effort, No retractions, No use of accessory muscles and clear to auscultation bilaterally AUSCULTATION: clear to auscultation bilaterally Cardio: COMMON NORMALS: regular rate, regular rhythm, S1 normal heart sound present, S2 normal heart sound present, No gallops present (Cardio), No clicks present (Cardio), No murmurs present (Cardio) and Peripheral pulses 2+ throughout RATE: regular rate RHYTHM: regular rhythm HEART SOUNDS: S1 normal heart sound present and S2 normal heart sound present PERIPHERAL PULSES: Peripheral pulses 2+ throughout GI: COMMON NORMALS: Normal to inspection, nondistended, normoactive bowel sounds present, Soft to palpation, non-tender and no masses PALPATION: Yes Soft to palpation : COMMON NORMALS: Yes no CVA tenderness BLADDER/KIDNEY EXAM: Yes no CVA tenderness Back/Pelvis: COMMON NORMALS: no CVA tenderness THORACIC SPINE/UPPER BACK: No thoracic spinal tenderness and Yes paraspinal muscle tenderness Thoracic paraspinal muscle tenderness: bilateral Extremity: COMMON NORMALS: normal to inspection Neuro: COMMON NORMALS: patient oriented x3 SENSORIUM/ORIENTATION: Yes alert GAIT: Yes Normal gait present Skin: GENERAL SKIN EXAM: dry skin Course Vital Signs: Vital signs: Vital Signs Temperature 98.3 F 05/20/22 13:30 Pulse Rate 78 05/20/22 14:50 Respiratory Rate 22 H 05/20/22 14:50 Blood Pressure 121/66 05/20/22 14:50 Pulse Oximetry 95 05/20/22 14:50 Oxygen Delivery Me thod 05/20/22 13:30 MDM - Back Pain/Injury Medical Decision Making Patient is a 36-year-old female comes to the ED with acute on chronic back pain. Patient sees pain management due to chronic back pain. Denies any injury or trauma. Vitals are stable and patient appears in no acute distress. She has some thoracic paraspinal muscle tenderness bilaterally with no thoracic spinal tenderness noted. Patient was given pain meds and muscle relaxer here in the ED to help with symptoms. She was diagnosed with back pain and discharged home with a prescription for muscle relaxer. Told to follow-up with pain management or neck scheduled appointment. Return ED precautions given. Patient understood agree with plan. Discharge Plan Discharge Patient Disposition: Home Clinical Impression: Back pain Qualifiers: Back pain location: thoracic back pain Chronicity: unspecified Back pain laterality: bilateral Qualified Code(s): M54.6 - Pain in thoracic spine Condition: Stable Prescriptions: New cyclobenzaprine 10 mg tablet 10 mg PO BID PRN (Reason: muscle spasm) Qty: 20 0RF No Action (DME) Dexcom G4 Transmitter Device See Rx Instructions .Route Rx Instructions: As directed buspirone 10 mg tablet 10 mg PO BID Qty: 60 1RF (DME) Diabetic shoes with 3 sets of inserts See Rx Instructions .Route .MEDSUPPLY Qty: 1 0RF Rx Instructions: As directed (DME) ASO to the Left Ankle See Rx Instructions .Route .MEDSUPPLY Qty: 1 0RF Rx Instructions: As directed (DME) 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 meter [Accu-Chek Kori Plus Meter] Misc See Rx Instructions .ROUTE .MEDSUPPLY Qty: 1 0RF Rx Instructions: As directed (DME) lancets [Accu-Chek Fastclix Lancet Drum] Misc See Rx Instructions .ROUTE .MEDSUPPLY Qty: 100 1RF Rx Instructions: TWICE DAILY (DME) Accu-Chek Kori Plus test strp Strip See Rx Instructions .ROUTE .MEDSUPPLY Qty: 100 1RF Rx Instructions: twice daily omeprazole 40 mg capsule,delayed release(DR/EC) 40 mg PO DAILY Qty: 90 0RF (DME) FreeStyle Zackery 2 Sensor Kit See Rx Instructions .ROUTE .MEDSUPPLY Qty: 2 3RF Rx Instructions: monitors blood sugars (DME) FreeStyle Zackery 2 [place] Misc See Rx Instructions .ROUTE .MEDSUPPLY Qty: 1 0RF Rx Instructions: used to read sensers (DME) Omnipod Dash Pods (Gen 4) Cartridge See Rx Instructions .Route Qty: 5 3RF Rx Instructions: As directed albuterol sulfate [Ventolin HFA] 90 mcg/actuation HFA aerosol inhaler 2 puff INHALATION Q6H PRN (Reason: Shortness Of Breath Or Wheezing) Qty: 8.5 1RF amitriptyline 50 mg tablet 50 mg PO DAILY Qty: 90 0RF Rx Instructions: TAKE ONE BY MOUTH DAILY budesonide-formoterol 160-4.5 mcg/actuation HFA aerosol inhaler 2 inh inhalation BID Qty: 10.2 0RF Rx Instructions: 340 be if unaffordable. citalopram 40 mg tablet 40 mg PO DAILY Qty: 90 0RF ferrous gluconate 324 mg (37.5 mg iron) tablet 324 mg PO DAILY Qty: 30 6RF gabapentin 300 mg capsule 300 mg PO TID Qty: 240 3RF montelukast [Singulair] 10 mg tablet 10 mg PO DAILY Qty: 90 1RF metformin 500 mg tablet extended release 24 hr 500 mg PO BID Qty: 180 3RF Rx Instructions: Take one tablet by mouth twice a day. insulin aspart U-100 [Novolog U-100 Insulin aspart] 100 unit/mL solution See Rx Instructions SUBCUT .COMPLEX Qty: 140 3RF Rx Instructions: maximum 200 units/day through pump furosemide 40 mg tablet 40 mg PO DIRECTED Qty: 95 3RF Rx Instructions: Take 40mg BID X5 days then decrease to 40mg once daily potassium chloride 20 mEq tablet extended release 20 meq PO DIRECTED Qty: 95 3RF Rx Instructions: Take 20mEq BID X5 days then decrease to 20mEq once daily atenolol 25 mg tablet 25 mg PO BID Qty: 180 1RF lisinopril-hydrochlorothiazide 20-25 mg tablet 1 tab PO DAILY Qty: 90 1RF spironolactone 50 mg tablet 50 mg PO DAILY Qty: 90 1RF acetaminophen 500 mg tablet 500 mg PO Q6H PRN (Reason: pain) Qty: 30 0RF hydrocodone-acetaminophen 5-325 mg tablet 1 tab PO BID PRN (Reason: pain) Qty: 10 0RF Discharge Orders: Discharge ED (Routine); Ordered 05/20/22 Ordered By: Quinn Zhong Referrals: Flores Mcmahon FNP-C [Primary Care Provider] - Discharge Diet: Regular Discharge Activity: Increase activity as tolerated Patient Instructions: Back Pain (ED) Activity Restrictions/Additional Instructions: Follow-up with medical provider as directed in the next 7 to 10 days reevaluation. Take medications as prescribed. Return to the ER or your medical provider if condition worsens. Please read and understand discharge instructions. Thank you for choosing [facility] for your healthcare needs today. Please realize this is an emergency room and that we are providing you with a medical screening exam and this may not be complete and all inclusive of all the testing and or work up that you may need to determine your ailment or severity of your illness. It is very important that you follow up as instructed or that you return to the Emergency Department should you have concerns or if your condition changes or worsens in any way. Coding Level of Care Code ED Car Builder for Leonela Escobedo Exam Comprehensive
[2022-05-20] MEDS: HYDROcodone-acetaminophen 7.5-325 mg Tablet 1 TAB PO (14:24)
[2022-05-20] MEDS: orphenadrine 30 mg/mL Inj 2 mL 60 MG IM (14:24)
[2022-05-20 14:50] VITALS: BP 121/66; PULSE 78; RESP 22; O2SAT 95
== END 2022-05-20 14:51 | disposition home or self-care (01) ==
PROVIDERS: Emergency Provider Physician Assistant; PCP Nurse Practitioner Family
DX: M54.6 Pain in thoracic spine (principal); Z79.84 Long term (current) use of oral hypoglycemic drugs; Z79.4 Long term (current) use of insulin; F17.210 Nicotine dependence, cigarettes, uncomplicated; I10 Essential (primary) hypertension; E78.5 Hyperlipidemia, unspecified; E11.9 Type 2 diabetes mellitus without complications
CPT/HCPCS: 96372; 99284; J2360

== ENCOUNTER 2022-05-25 20:14 | Emergency (ER) | payer MEDICARE, MEDICAID, SELFPAY ==
[2022-05-25 20:25] VITALS: BP 131/83; PULSE 99; RESP 16; TEMP 36.4; O2SAT 93
--- NOTE | 2022-05-25 22:32 | W.ED.BACK ---
HPI - Back Pain/Injury General: Chief Complaint: Back Pain/Injury Stated Complaint: back pain Time Seen by Provider: 05/25/22 22:25 History of Present Illness: 36-year-old female comes in today for complaints of low back pain. Patient reports that she was outside working with her plants and she slipped causing her to fall back on her buttocks. Patient reports some low back pain. Patient does not feel that she injured herself severely but does have some increased discomfort. Patient appears nontoxic. Patient denies any loss of bowel or bladder control. Associated symptoms: Deny fever(s) Review of Systems Const: Denies: fever(s) Musc: Reports: back pain PFSH ED PFSH: Medical History (Updated 05/25/22 @ 22:37 by TONYA Best) Amenorrhea Asthma Benign essential HTN Bilateral chronic knee pain Bilateral leg edema Dyslipidemia GERD (gastroesophageal reflux disease) FPC (current) use of opiate analgesic Morbid obesity with BMI of 60.0-69.9, adult Muscle spasms of both lower extremities Pain management contract signed Prolonged depression Spinal stenosis, thoracic region Type 2 diabetes mellitus, with long-term current use of insulin Surgical History History of cholecystectomy Family History Father CAD (coronary artery disease) Diabetes Hypertension Family/Other Cancer Mother Diabetes Hypertension Social History Smoking and tobacco status: current every day smoker cigarettes Packs smoked per day: 1 Years cigarettes smoked: 20 [ Other cigarette details: 2 packs + daily] Quit status (tobacco): considering quitting Second hand smoke exposure: Yes Smoking risk assessment/counseling performed?: No Alcohol intake: former Year of sobriety/quit date alcohol: 2016 Desire information about alcohol rehabilitation?: No Counseling given: No Desire information about substance/drug rehabilitation?: No Counseling given: No Caregiver/support person: Yes Household members: spouse and family Marital status: Current occupational status: disabled Current occupation: disabled History of recent travel: No Female Reproductive History: Date of last menstrual period: 08/29/21 Physical Exam Const: COMMON NORMALS: alert HENMT: COMMON NORMALS: normocephalic HEAD & SCALP: normocephalic Neck/C-Spine: COMMON NORMALS: full ROM Resp: COMMON NORMALS: normal respiratory effort and clear to auscultation bilaterally AUSCULTATION: clear to auscultation bilaterally Cardio: COMMON NORMALS: regular rate and regular rhythm RATE: regular rate RHYTHM: regular rhythm Back/Pelvis: THORACIC SPINE/UPPER BACK: No paraspinal muscle tenderness LUMBAR SPINE/LOWER BACK: Yes paraspinal muscle tenderness Neuro: SENSORIUM/ORIENTATION: Yes alert Skin: COMMON NORMALS: turgor normal GENERAL SKIN EXAM: turgor normal Course Vital Signs: Vital signs: Vital Signs Temperature 97.5 F L 05/25/22 20:25 Pulse Rate 99 05/25/22 20:25 Respiratory Rate 18 05/25/22 22:42 Blood Pressure 131/83 05/25/22 20:25 Pulse Oximetry 93 05/25/22 20:25 MDM - Back Pain/Injury Medical Decision Making Patient comes in today for complaints of low back pain. On exam patient has no midline tenderness but some right side paraspinous muscle tenderness. Patient moves extremities well. Patient is able to ambulate with assistance of a cane. Differential diagnosis includes intervertebral disc disease, facet arthropathy, lumbar strain, malingering. Patient was given 1 tablet of hydrocodone 5?acetaminophen 325 mg. Patient was discharged home with a prescription with recommendations for follow-up and return to the ER as needed. Patient reported understanding and agreed to plan. Discharge Plan Discharge Patient Disposition: Home Clinical Impression: Fall Qualifiers: Encounter type: initial encounter Qualified Code(s): W19.XXXA - Unspecified fall, initial encounter Back pain Qualifiers: Back pain location: low back pain Chronicity: unspecified Back pain laterality: unspecified Sciatica presence: without sciatica Qualified Code(s): M54.50 - Low back pain, unspecified Condition: Stable Prescriptions: New hydrocodone-acetaminophen 5-325 mg tablet 1 tab PO Q8H PRN (Reason: pain (scale score 7-10)) Qty: 9 0RF No Action (DME) Dexcom G4 Transmitter Device See Rx Instructions .Route Rx Instructions: As directed buspirone 10 mg tablet 10 mg PO BID Qty: 60 1RF (DME) Diabetic shoes with 3 sets of inserts See Rx Instructions .Route .MEDSUPPLY Qty: 1 0RF Rx Instructions: As directed (DME) ASO to the Left Ankle See Rx Instructions .Route .MEDSUPPLY Qty: 1 0RF Rx Instructions: As directed (DME) 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 meter [Accu-Chek Kori Plus Meter] Misc See Rx Instructions .ROUTE .MEDSUPPLY Qty: 1 0RF Rx Instructions: As directed (DME) lancets [Accu-Chek Fastclix Lancet Drum] Misc See Rx Instructions .ROUTE .MEDSUPPLY Qty: 100 1RF Rx Instructions: TWICE DAILY (DME) Accu-Chek Kori Plus test strp Strip See Rx Instructions .ROUTE .MEDSUPPLY Qty: 100 1RF Rx Instructions: twice daily omeprazole 40 mg capsule,delayed release(DR/EC) 40 mg PO DAILY Qty: 90 0RF (DME) FreeStyle Zackery 2 Sensor Kit See Rx Instructions .ROUTE .MEDSUPPLY Qty: 2 3RF Rx Instructions: monitors blood sugars (DME) FreeStyle Zackery 2 [place] Misc See Rx Instructions .ROUTE .MEDSUPPLY Qty: 1 0RF Rx Instructions: used to read sensers albuterol sulfate [Ventolin HFA] 90 mcg/actuation HFA aerosol inhaler 2 puff INHALATION Q6H PRN (Reason: Shortness Of Breath Or Wheezing) Qty: 8.5 1RF amitriptyline 50 mg tablet 50 mg PO DAILY Qty: 90 0RF Rx Instructions: TAKE ONE BY MOUTH DAILY budesonide-formoterol 160-4.5 mcg/actuation HFA aerosol inhaler 2 inh inhalation BID Qty: 10.2 0RF Rx Instructions: 340 be if unaffordable. citalopram 40 mg tablet 40 mg PO DAILY Qty: 90 0RF ferrous gluconate 324 mg (37.5 mg iron) tablet 324 mg PO DAILY Qty: 30 6RF gabapentin 300 mg capsule 300 mg PO TID Qty: 240 3RF montelukast [Singulair] 10 mg tablet 10 mg PO DAILY Qty: 90 1RF atenolol 25 mg tablet 25 mg PO BID Qty: 180 1RF furosemide 40 mg tablet 40 mg PO DAILY Qty: 90 1RF lisinopril-hydrochlorothiazide 20-25 mg tablet 1 tab PO DAILY Qty: 90 1RF potassium chloride 20 mEq tablet extended release 20 meq PO DAILY Qty: 90 1RF spironolactone 50 mg tablet 50 mg PO DAILY Qty: 90 1RF (DME) Omnipod Dash Pods (Gen 4) Cartridge See Rx Instructions .Route Qty: 5 3RF Rx Instructions: As directed metformin 500 mg tablet extended release 24 hr 500 mg PO BID Qty: 180 3RF Rx Instructions: Take one tablet by mouth twice a day. insulin aspart U-100 [Novolog U-100 Insulin aspart] 100 unit/mL solution See Rx Instructions SUBCUT .COMPLEX Qty: 140 3RF Rx Instructions: maximum 200 units/day through pump cyclobenzaprine 10 mg tablet 10 mg PO BID PRN (Reason: muscle spasm) Qty: 20 0RF acetaminophen 500 mg tablet 500 mg PO Q6H PRN (Reason: pain) Qty: 30 0RF hydrocodone-acetaminophen 5-325 mg tablet 1 tab PO BID PRN (Reason: pain) Qty: 10 0RF Discharge Orders: Discharge ED (Routine); Ordered 05/25/22 Ordered By: Herb Nathan Referrals: Lory Olmstead MD [Primary Care Provider] - Patient Instructions: Back Pain (ED) Activity Restrictions/Additional Instructions: Home and rest. Activity as tolerated. Gentle stretching and range of motion exercises. Use acetaminophen as needed for pain. Use hydrocodone for severe pain. Follow-up with primary care for further evaluation and treatment. Return to ER for new concerns. Coding Level of Care Code ED Supervisor [employer] for Leonela Escobedo
[2022-05-25] MEDS: HYDROcodone-acetaminophen 5-325 mg Tablet 1 TAB PO (22:39)
[2022-05-25 22:42] VITALS: RESP 18
== END 2022-05-25 22:42 | disposition home or self-care (01) ==
PROVIDERS: Emergency Provider Nurse Practitioner Family; PCP Family Medicine
DX: M54.50 Low back pain, unspecified (principal)
CPT/HCPCS: 99283

== ENCOUNTER 2022-06-03 18:37 | Emergency (ER) | payer MEDICARE, MEDICAID, SELFPAY ==
[2022-06-03 18:42] VITALS: BP 125/81; PULSE 89; RESP 20; TEMP 36.6; O2SAT 96; BMI 65.5
[2022-06-03 21:28] VITALS: BP 140/92; PULSE 82; RESP 17; O2SAT 97
--- NOTE | 2022-06-03 21:31 | XRR_ITS ---
PROCEDURE INFORMATION: Exam: XR Lumbosacral Spine Exam date and time: 06/03/2022 9:45 PM Age: 36 years old Clinical indication: Low back pain; Additional info: Back pain, fall TECHNIQUE: Imaging protocol: Radiologic exam of the lumbosacral spine. Views: 2 or 3 views. COMPARISON: CT abdomen pelvis w con* [id number] 10/03/2021 10:16 PM FINDINGS: Bones/joints: Normal. No acute fracture. Normal alignment. Soft tissues: Unremarkable. XR/XR lumbar spine 2-3V* [id number] IMPRESSION: No acute findings.
[2022-06-03 21:38] VITALS: RESP 15; O2SAT 99
[2022-06-03] MEDS: morphine 4 mg/mL SDV 1 mL IM (21:38)
[2022-06-03] MEDS: orphenadrine 30 mg/mL Inj 2 mL 60 MG IM (21:39)
--- NOTE | 2022-06-03 21:39 | ED_ITS ---
HPI - Back Pain/Injury General: Chief Complaint: Back Pain/Injury Stated Complaint: back pian Time Seen by Provider: 06/03/22 21:30 History of Present Illness: Patient reports falling last week while at the doctor's office. She was evaluated as office and given a short course of hydr ocodone for her pain. Patient denies any loss of bowel or bladder control. Patient appears nontoxic. Patient appears in moderate pain. 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 Morbid obesity with BMI of 60.0-69.9, adult Muscle spasms of both lower extremities Pain management contract signed Prolonged depression Spinal stenosis, thoracic region Type 2 diabetes mellitus, with long-term current use of insulin Surgical History History of cholecystectomy Family History Father CAD (coronary artery disease) Diabetes Hypertension Family/Other Cancer Mother Diabetes Hypertension Social History Smoking and tobacco status: current every day smoker cigarettes Packs smoked per day: 1.5 Years cigarettes smoked: 20 [ Other cigarette details: 2 packs + daily] Quit status (tobacco): considering quitting Second hand smoke exposure: Yes Smoking risk assessment/counseling performed?: No Alcohol intake: former Year of sobriety/quit date alcohol: 2017 Desire information about alcohol rehabilitation?: No Counseling given: No Desire information about substance/drug rehabilitation?: No Counseling given: No Caregiver/support person: Yes Household members: spouse and family Marital status: Current occupational status: disabled Current occupation: disabled History of recent travel: No Female Reproductive History: Date of last menstrual period: 08/29/21 Physical Exam Const: COMMON NORMALS: alert HENMT: COMMON NORMALS: normocephalic HEAD & SCALP: normocephalic Neck/C-Spine: COMMON NORMALS: full ROM Resp: COMMON NORMALS: normal respiratory effort and clear to auscultation bilaterally AUSCULTATION: clear to auscultation bilaterally Cardio: COMMON NORMALS: regular rate and regular rhythm RATE: regular rate RHYTHM: regular rhythm GI: COMMON NORMALS: Soft to palpation and non-tender PALPATION: Yes Soft to palpation Back/Pelvis: THORACIC SPINE/UPPER BACK: Yes paraspinal muscle tenderness LUMBAR SPINE/LOWER BACK: Yes paraspinal muscle tenderness Extremity: COMMON NORMALS: normal to inspection Neuro: SENSORIUM/ORIENTATION: Yes alert Skin: COMMON NORMALS: turgor normal GENERAL SKIN EXAM: turgor normal Course Vital Signs: Vital signs: Vital Signs Temperature 97.9 F 06/03/22 18:42 Pulse Rate 82 06/03/22 21:28 Respiratory Rate 15 06/03/22 21:38 Blood Pressure 140/92 06/03/22 21:28 Pulse Oximetry 99 06/03/22 21:38 Oxygen Delivery Me thod 06/03/22 21:28 MDM - Back Pain/Injury Medical Decision Making 36-year-old female comes in today for evaluation of a fall from last week. Patient reports persistent pain and discomfort since her fall. On exam patient has vertebral tenderness of the lumbar spine and paraspinous muscle tenderness of the thoracic and lumbar spine. Moves all extremities well. Patient is morbidly obese. Vital signs are normal. Differential diagnosis includes lumbar vertebral fracture, intervertebral disc disease, facet arthritis. X-rays of the lumbar spine noted no fractures. Patient was given an injection of orphenadrine and morphine for her pain. Patient was written a prescription for hydrocodone No. 5 tablets for pain medicine at home with recommendations to follow-up with primary care for further pain medications. Patient stated understanding and agreed to plan. Discharge Plan Discharge Patient Disposition: Home Clinical Impression: Back pain due to injury Condition: Stable Prescriptions: Continued hydrocodone-acetaminophen 5-325 mg tablet 1 tab PO BID PRN (Reason: pain) 3 Days Qty: 5 0RF Discontinued hydrocodone-acetaminophen 5-325 mg tablet 1 tab PO Q8H PRN (Reason: pain (scale score 7-10)) Qty: 9 0RF No Action (DME) Dexcom G4 Transmitter Device See Rx Instructions .Route Rx Instructions: As directed buspirone 10 mg tablet 10 mg PO TID Qty: 90 2RF citalopram 40 mg tablet 40 mg PO DAILY Qty: 90 0RF trazodone 50 mg tablet 100 mg PO .HS PRN (Reason: insomnia) Qty: 60 2RF (DME) Diabetic shoes with 3 sets of inserts See Rx Instructions .Route .MEDSUPPLY Qty: 1 0RF Rx Instructions: As directed (DME) ASO to the Left Ankle See Rx Instructions .Route .MEDSUPPLY Qty: 1 0RF Rx Instructions: As directed albuterol sulfate [Ventolin HFA] 90 mcg/actuation HFA aerosol inhaler 2 puff INHALATION Q6H PRN (Reason: Shortness Of Breath Or Wheezing) Qty: 8.5 8RF amitriptyline 50 mg tablet 50 mg PO DAILY Qty: 90 3RF Rx Instructions: TAKE ONE BY MOUTH DAILY budesonide-formoterol 160-4.5 mcg/actuation HFA aerosol inhaler 2 inh inhalation BID Qty: 10.2 8RF Rx Instructions: 340 be if unaffordable. ferrous gluconate 324 mg (37.5 mg iron) tablet 324 mg PO DAILY Qty: 90 3RF omeprazole 40 mg capsule,delayed release(DR/EC) 40 mg PO DAILY Qty: 90 3RF spironolactone 50 mg tablet 50 mg PO DAILY Qty: 90 3RF gabapentin 300 mg capsule 300 mg PO TID Qty: 240 3RF (DME) 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 meter [Accu-Chek Kori Plus Meter] Misc See Rx Instructions .ROUTE .MEDSUPPLY Qty: 1 0RF Rx Instructions: As directed (DME) lancets [Accu-Chek Fastclix Lancet Drum] Misc See Rx Instructions .ROUTE .MEDSUPPLY Qty: 100 1RF Rx Instructions: TWICE DAILY (DME) Accu-Chek Kori Plus test strp Strip See Rx Instructions .ROUTE .MEDSUPPLY Qty: 100 1RF Rx Instructions: twice daily (DME) FreeStyle Zackery 2 Sensor Kit See Rx Instructions .ROUTE .MEDSUPPLY Qty: 2 3RF Rx Instructions: monitors blood sugars (DME) FreeStyle Zackery 2 [place] Misc See Rx Instructions .ROUTE .MEDSUPPLY Qty: 1 0RF Rx Instructions: used to read sensers montelukast [Singulair] 10 mg tablet 10 mg PO DAILY Qty: 90 1RF (DME) Omnipod Dash Pods (Gen 4) Cartridge See Rx Instructions .Route Qty: 5 3RF Rx Instructions: As directed insulin aspart U-100 [Novolog U-100 Insulin aspart] 100 unit/mL solution See Rx Instructions SUBCUT .COMPLEX Qty: 140 3RF Rx Instructions: maximum 200 units/day through pump atenolol 25 mg tablet 25 mg PO BID Qty: 180 1RF furosemide 40 mg tablet 40 mg PO DAILY Qty: 90 1RF potassium chloride 20 mEq tablet extended release 20 meq PO DAILY Qty: 90 1RF lisinopril-hydrochlorothiazide 20-25 mg tablet 1 tab PO DAILY Qty: 90 1RF metformin 500 mg tablet extended release 24 hr 500 mg PO BID Qty: 180 3RF Rx Instructions: Take one tablet by mouth twice a day. cyclobenzaprine 10 mg tablet 10 mg PO BID PRN (Reason: muscle spasm) Qty: 20 0RF acetaminophen 500 mg tablet 500 mg PO Q6H PRN (Reason: pain) Qty: 30 0RF Discharge Orders: Discharge ED (Routine); Ordered 06/03/22 Ordered By: Herb Nathan Referrals: Stevie Brock MD [Primary Care Provider] - Discharge Diet: Usual diet Discharge Activity: Increase activity as tolerated Patient Instructions: Opioid Safety Activity Restrictions/Additional Instructions: Home and rest. Take medications only as directed. Gentle stretching and range of motion exercises. Try to keep as active as possible. Follow-up with primary care for further instruction and consideration of physical therapy for further treatment. Coding Level of Care Code ED Devops Developer for Leonela Fwd Exam Comprehensive
== END 2022-06-03 22:09 | disposition home or self-care (01) ==
PROVIDERS: Emergency Provider Nurse Practitioner Family; PCP Internal Medicine
DX: S39.92XA Unspecified injury of lower back, initial encounter (principal); Z79.4 Long term (current) use of insulin; Z79.84 Long term (current) use of oral hypoglycemic drugs; F17.210 Nicotine dependence, cigarettes, uncomplicated; I10 Essential (primary) hypertension; E78.5 Hyperlipidemia, unspecified; E11.9 Type 2 diabetes mellitus without complications; W19.XXXA Unspecified fall, initial encounter
CPT/HCPCS: 72100; 96372; 99284; J2270; J2360

== ENCOUNTER 2022-06-09 14:26 | Emergency (ER) | payer MEDICARE, MEDICAID, SELFPAY ==
--- NOTE | 2022-06-09 14:31 | XRR_ITS ---
PROCEDURE INFORMATION: Exam: XR Lumbosacral Spine Exam date and time: 06/09/2022 2:53 PM Age: 36 years old Clinical indication: Injury or trauma; Fall; Blunt trauma (contusions or hematomas) TECHNIQUE: Imaging protocol: Radiologic exam of the lumbosacral spine. Views: 2 or 3 views. COMPARISON: CR (PELVIS, ) 06/03/2022 9:45 PM FINDINGS: Bones/joints: Normal. No acute fracture. Normal alignment. Soft tissues: Unremarkable. XR/XR lumbar spine 2-3V* [id number] IMPRESSION: No acute findings.
[2022-06-09 14:33] VITALS: BP 145/85; PULSE 85; RESP 16; TEMP 36.8; O2SAT 95; BMI 64.6
--- NOTE | 2022-06-09 14:38 | ED_ITS ---
HPI - Back Pain/Injury General: Chief Complaint: Back Pain/Injury Stated Complaint: Fall, lower back pain Time Seen by Provider: 06/09/22 14:32 Source: patient Mode of arrival: ambulatory Limitations: no limitations History of Present Illness: 36-year-old female states she tripped on an extension cord roughly 30 minutes ago and fell backwards. She states she fell on her buttocks and has pain in her tailbone along with her lumbar spine she rates her pain a 6 out of 10 denies any other injuries. Associated symptoms: Deny abdominal pain, chills, dysuria, fever(s), nausea or vomiting Review of Systems Const: Denies: fever(s), chills, body aches or change in appetite Eyes: Denies: blurry vision or eye discomfort ENMT: Denies: throat pain or dental pain Card: Denies: chest pain Resp: Denies: dyspnea GI: Denies: abdominal pain, nausea, vomiting or diarrhea : Denies: dysuria Musc: Reports: back pain Skin/Breast: Denies: rash Neuro: Denies: headache(s) Psych: Denies: depression Usnday/Lymph: Denies: easy bruising All/Imm: Denies: urticaria PFSH ED PFSH: Medical History (Updated 06/09/22 @ 15:12 by Kat Yang MD) Amenorrhea Asthma Benign essential HTN Bilateral chronic knee pain Bilateral leg edema Dyslipidemia GERD (gastroesophageal reflux disease) 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 Morbid obesity with BMI of 60.0-69.9, adult Muscle spasms of both lower extremities Pain management contract signed Prolonged depression Spinal stenosis, thoracic region Type 2 diabetes mellitus, with long-term current use of insulin Surgical History History of cholecystectomy Family History Father CAD (coronary artery disease) Diabetes Hypertension Family/Other Cancer Mother Diabetes Hypertension Social History Smoking and tobacco status: current every day smoker cigarettes Packs smoked per day: 1.5 Years cigarettes smoked: 20 [ Other cigarette details: 2 packs + daily] Quit status (tobacco): considering quitting Second hand smoke exposure: Yes Smoking risk assessment/counseling performed?: No Alcohol intake: former Year of sobriety/quit date alcohol: 2017 Desire information about alcohol rehabilitation?: No Counseling given: No Desire information about substance/drug rehabilitation?: No Counseling given: No Caregiver/support person: Yes Household members: spouse and family Marital status: Current occupational status: disabled Current occupation: disabled History of recent travel: No Female Reproductive History: Date of last menstrual period: 08/29/21 Physical Exam Const: COMMON NORMALS: no acute distress, patient oriented x3 and healthy appearing HENMT: COMMON NORMALS: normocephalic and atraumatic HEAD & SCALP: normocephalic and atraumatic Eye: COMMON NORMALS: Equal, round and reactive pupils present and EOMs intact bilaterally PUPIL: Yes Equal, round and reactive pupils present Neck/C-Spine: COMMON NORMALS: full ROM and supple Chest: COMMONS NORMALS: normal inspection of the chest Resp: COMMON NORMALS: normal respiratory effort Cardio: COMMON NORMALS: regular rate, regular rhythm and No murmurs present (Cardio) RATE: regular rate RHYTHM: regular rhythm GI: INSPECTION: Yes normal to inspection Back/Pelvis: OTHER: Tenderness over tailbone along with lumbar spine Extremity: COMMON NORMALS: normal to inspection and full ROM Neuro: COMMON NORMALS: patient oriented x3, moves all extremities and no focal motor deficits Psych: COMMON NORMALS: mental status grossly normal, Normal thought process present and cooperative THOUGHT PROCESS: Normal thought process present Skin: COMMON NORMALS: no rashes or lesions noted and no wounds GENERAL SKIN EXAM: no rashes or lesions noted Course Vital Signs: Vital signs: Vital Signs Temperature 98.2 F 06/09/22 14:33 Pulse Rate 85 06/09/22 14:33 Respiratory Rate 16 06/09/22 14:33 Blood Pressure 145/85 06/09/22 14:33 Pulse Oximetry 95 06/09/22 14:33 Oxygen Delivery Me thod 06/09/22 14:33 MDM - Back Pain/Injury Medical Decision Making Patient presents here with low back pain from a fall x-ray shows no fracture she is stable for discharge she is to follow-up with PCP and return if worsening she understands agrees to plan. Discharge Plan Discharge Patient Disposition: Home Clinical Impression: Low back pain, Fall Condition: Stable Prescriptions: No Action (DME) Dexcom G4 Transmitter Device See Rx Instructions .Route Rx Instructions: As directed buspirone 10 mg tablet 10 mg PO TID Qty: 90 2RF citalopram 40 mg tablet 40 mg PO DAILY Qty: 90 0RF trazodone 50 mg tablet 100 mg PO .HS PRN (Reason: insomnia) Qty: 60 2RF (DME) Diabetic shoes with 3 sets of inserts See Rx Instructions .Route .MEDSUPPLY Qty: 1 0RF Rx Instructions: As directed (DME) ASO to the Left Ankle See Rx Instructions .Route .MEDSUPPLY Qty: 1 0RF Rx Instructions: As directed albuterol sulfate [Ventolin HFA] 90 mcg/actuation HFA aerosol inhaler 2 puff INHALATION Q6H PRN (Reason: Shortness Of Breath Or Wheezing) Qty: 8.5 8RF amitriptyline 50 mg tablet 50 mg PO DAILY Qty: 90 3RF Rx Instructions: TAKE ONE BY MOUTH DAILY budesonide-formoterol 160-4.5 mcg/actuation HFA aerosol inhaler 2 inh inhalation BID Qty: 10.2 8RF Rx Instructions: 340 be if unaffordable. ferrous gluconate 324 mg (37.5 mg iron) tablet 324 mg PO DAILY Qty: 90 3RF omeprazole 40 mg capsule,delayed release(DR/EC) 40 mg PO DAILY Qty: 90 3RF spironolactone 50 mg tablet 50 mg PO DAILY Qty: 90 3RF gabapentin 300 mg capsule 300 mg PO TID Qty: 240 3RF (DME) 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 meter [Accu-Chek Kori Plus Meter] Misc See Rx Instructions .ROUTE .MEDSUPPLY Qty: 1 0RF Rx Instructions: As directed ([facility] [place]) lancets [Accu-Chek Fastclix Lancet Drum] Misc See Rx Instructions .ROUTE .MEDSUPPLY Qty: 100 1RF Rx Instructions: TWICE DAILY (DME) Accu-Chek Kori Plus test strp Strip See Rx Instructions .ROUTE .MEDSUPPLY Qty: 100 1RF Rx Instructions: twice daily (DME) FreeStyle Zackery 2 Sensor Kit See Rx Instructions .ROUTE .MEDSUPPLY Qty: 2 3RF Rx Instructions: monitors blood sugars (DME) FreeStyle Zackery 2 [place] Misc See Rx Instructions .ROUTE .MEDSUPPLY Qty: 1 0RF Rx Instructions: used to read sensers montelukast [Singulair] 10 mg tablet 10 mg PO DAILY Qty: 90 1RF (DME) Omnipod Dash Pods (Gen 4) Cartridge See Rx Instructions .Route Qty: 5 3RF Rx Instructions: As directed insulin aspart U-100 [Novolog U-100 Insulin aspart] 100 unit/mL solution See Rx Instructions SUBCUT .COMPLEX Qty: 140 3RF Rx Instructions: maximum 200 units/day through pump atenolol 25 mg tablet 25 mg PO BID Qty: 180 1RF furosemide 40 mg tablet 40 mg PO DAILY Qty: 90 1RF potassium chloride 20 mEq tablet extended release 20 meq PO DAILY Qty: 90 1RF lisinopril-hydrochlorothiazide 20-25 mg tablet 1 tab PO DAILY Qty: 90 1RF metformin 500 mg tablet extended release 24 hr 500 mg PO BID Qty: 180 3RF Rx Instructions: Take one tablet by mouth twice a day. cyclobenzaprine 10 mg tablet 10 mg PO BID PRN (Reason: muscle spasm) Qty: 20 0RF acetaminophen 500 mg tablet 500 mg PO Q6H PRN (Reason: pain) Qty: 30 0RF hydrocodone-acetaminophen 5-325 mg tablet 1 tab PO BID PRN (Reason: pain) 3 Days Qty: 5 0RF Discharge Orders: Discharge ED (Routine); Ordered 06/09/22 Ordered By: Kat Yang Referrals: Stevie Brock MD [Primary Care Provider] - Discharge Diet: Advance as tolerated Discharge Activity: Resume usual activity Patient Instructions: Back Pain (ED) Coding Level of Care Code ED Regional Retail Sales Manager for Leonela Fwd Exam Comprehensive
--- NOTE | 2022-06-09 14:38 | XRR_ITS ---
PROCEDURE INFORMATION: Exam: XR Sacrum and Coccyx, 2 or More Views Exam date and time: 06/09/2022 3:04 PM Age: 36 years old Clinical indication: Injury or trauma; Fall; Blunt trauma (contusions or hematomas) TECHNIQUE: Imaging protocol: XR of the sacrum and coccyx, 2 or more views. COMPARISON: CR (PELVIS, ) 06/09/2022 2:53 PM FINDINGS: Bones/joints: Normal. No acute fracture. Soft tissues: Normal. XR/XR coccyx 2V [id number] IMPRESSION: No acute findings.
[2022-06-09] MEDS: HYDROcodone-acetaminophen 5-325 mg Tablet 1 TAB PO (14:43)
== END 2022-06-09 15:25 | disposition home or self-care (01) ==
PROVIDERS: Emergency Provider Emergency Medicine; PCP Internal Medicine
DX: M54.50 Low back pain, unspecified (principal); E11.9 Type 2 diabetes mellitus without complications; I10 Essential (primary) hypertension; E78.5 Hyperlipidemia, unspecified; J45.909 Unspecified asthma, uncomplicated; E66.01 Morbid (severe) obesity due to excess calories; Z68.44 Body mass index [BMI] 60.0-69.9, adult; F17.210 Nicotine dependence, cigarettes, uncomplicated; Z79.4 Long term (current) use of insulin; Z79.84 Long term (current) use of oral hypoglycemic drugs; W01.0XXA Fall on same level from slipping, tripping and stumbling without subsequent striking against object, initial encounter
CPT/HCPCS: 72100; 72220; 81001; 99283

== ENCOUNTER 2022-06-09 19:52 | Emergency (ER) | payer MEDICARE, MEDICAID, SELFPAY ==
[2022-06-09 19:56] VITALS: BP 138/79; PULSE 83; RESP 18; TEMP 36.2; O2SAT 95
--- NOTE | 2022-06-09 20:15 | ED_ITS ---
HPI - Back Pain/Injury General: Chief Complaint: Back Pain/Injury Stated Complaint: back/side pain Time Seen by Provider: 06/09/22 20:00 Source: patient History of Present Illness: 36-year-old female who reports that she fell over an extension cord today, injuring her back. She was seen her earlier, and x- rays were completed. They were negative. She now complains of upper lumbar back pain on the left side radiating into her left abdomen. She says this is a different pain than she was here for before. No fever. No hematuria. No diarrhea. MD elicited complaint: back pain and back injury Pertinent past history: prior back pain and recent trauma Onset (ago): hour(s) Timing: constant Quality: sharp Location: left flank Radiation: abdomen Exacerbating factors: movement Relieving factors: none Context: fall Associated symptoms: Reports abdominal pain and difficulty walking; Deny change in bowel habits, dysuria, fecal incontinence, fever(s), nausea, tingling/numbness/burning, vomiting or weakness Review of Systems Const: Denies: fever(s) Card: Denies: chest pain Resp: Denies: dyspnea GI: Reports: abdominal pain; Denies: nausea, vomiting, fecal incontinence or change in bowel habits : Denies: dysuria Neuro: Reports: difficulty walking [facility] ED PFSH: Medical History (Updated 06/09/22 @ 20:45 by Sergio Chu DO) Amenorrhea Asthma Benign essential HTN Bilateral chronic knee pain Bilateral leg edema Dyslipidemia GERD (gastroesophageal reflux disease) longterm (current) use of opiate analgesic Morbid obesity with BMI of 60.0-69.9, adult Muscle spasms of both lower extremities Pain management contract signed Prolonged depression Spinal stenosis, thoracic region Type 2 diabetes mellitus, with long-term current use of insulin Surgical History History of cholecystectomy Family History Father CAD (coronary artery disease) Diabetes Hypertension Family/Other Cancer Mother Diabetes Hypertension Social History Smoking and tobacco status: current every day smoker cigarettes Packs smoked per day: 1.5 Years cigarettes smoked: 20 [ Other cigarette details: 2 packs + daily] Quit status (tobacco): considering quitting Second hand smoke exposure: Yes Smoking risk assessment/counseling performed?: No Alcohol intake: former Year of sobriety/quit date alcohol: 2017 Desire information about alcohol rehabilitation?: No Counseling given: No Desire information about substance/drug rehabilitation?: No Counseling given: No Caregiver/support person: Yes Household members: spouse and family Marital status: Current occupational status: disabled Current occupation: disabled History of recent travel: No Female Reproductive History: Date of last menstrual period: 08/29/21 Physical Exam Const: COMMON NORMALS: no acute distress GENERAL APPEARANCE: not ill appearing ORIENTATION/CONSCIOUSNESS: Yes awake, Yes oriented to person and Yes oriented to time HENMT: COMMON NORMALS: normocephalic, atraumatic and Normal external nose present HEAD & SCALP: normocephalic and atraumatic FACE & SINUS: normal facial exam and face symmetric NOSE: Normal external nose present Eye: COMMON NORMALS: Equal, round and reactive pupils present and EOMs intact bilaterally PUPIL: Yes Equal, round and reactive pupils present Neck/C-Spine: COMMON NORMALS: full ROM GENERAL: Yes trachea midline Chest: CHEST: Yes Symmetrical chest wall rise Resp: COMMON NORMALS: normal respiratory effort, No use of accessory muscles and clear to auscultation bilaterally AUSCULTATION: clear to auscultation bilaterally Cardio: COMMON NORMALS: regular rate and regular rhythm RATE: regular rate RHYTHM: regular rhythm GI: COMMON NORMALS: Normal to inspection, nondistended, normoactive bowel sounds present PALPATION: Yes Tenderness to palpation present (GI) Details: LLQ : BLADDER/KIDNEY EXAM: Yes CVA tenderness on the left Back/Pelvis: GENERAL BACK: Yes CVA tenderness Neuro: HAWK COMA SCALE: document GCS findings Hawk coma scale eye ope clifford: Spontaneous Hawk coma scale verbal response: Orientated [place] coma scale motor response: Obey commands Hawk coma scale total score: 15 SENSORIUM/ORIENTATION: Yes oriented to person and Yes oriented to time MOTOR EXAM: 5/5 motor strength present throughout Course Vital Signs: Vital signs: Vital Signs Temperature 97.2 F L 06/09/22 19:56 Pulse Rate 85 06/09/22 20:50 Respiratory Rate 20 H 06/09/22 20:50 Blood Pressure 124/73 06/09/22 20:50 Pulse Oximetry 94 06/09/22 20:50 Oxygen Delivery Me thod 06/09/22 20:25 MDM - Back Pain/Injury Medical Decision Making 36-year-old female previously imaged today for low back pain from a fall. X- rays are quite good films, and are negative for fracture. Pain radiates into her abdomen and flank. She does not have hematuria by urinalysis. No evidence of infection. She will be allowed discharge. As this is likely a strain, she will be given a mild muscle relaxant Labs Laboratory Results Urine Color Yellow (Yellow) 06/09/22 20:20 Urine Appearance Sl cloudy (CLEAR) A 06/09/22 20:20 Urine pH 6.0 (5-7) 06/09/22 20:20 Ur Specific [place] >= 1.030 (1.005-1.030) 06/09/22 20:20 Urine Protein Negative (Negative) 06/09/22 20:20 Urine Glucose (UA) Negative (Normal) 06/09/22 20:20 Urine Ketones Negative (Negative) 06/09/22 20:20 Urine Blood Negative (Negative) 06/09/22 20:20 Urine Nitrate Negative 06/09/22 20:20 Urine Bilirubin Negative (Negative) 06/09/22 20:20 Urine Urobilinogen 0.2 mg/dL (Negative) 06/09/22 20:20 Ur Leukocyte Esterase Negative (Negative) 06/09/22 20:20 Urine RBC 0-4 /hpf (0-2) H 06/09/22 20:20 Urine WBC 5-10 /hpf (0-5) H 06/09/22 20:20 Ur Squamous Epith Cells 55-80 /hpf (0-5) H 06/09/22 20:20 Amorphous Sediment Not Reportable 06/09/22 20:20 Urine Bacteria 2+ /hpf (NONE) H 06/09/22 20:20 Discharge Plan Discharge Patient Disposition: Home Clinical Impression: Back pain due to injury Prescriptions: New methocarbamol 750 mg tablet 750 mg PO TID Qty: 10 0RF Discontinued cyclobenzaprine 10 mg tablet 10 mg PO BID PRN (Reason: muscle spasm) Qty: 20 0RF No Action (DME) Dexcom G4 Transmitter Device See Rx Instructions .Route Rx Instructions: As directed buspirone 10 mg tablet 10 mg PO TID Qty: 90 2RF citalopram 40 mg tablet 40 mg PO DAILY Qty: 90 0RF trazodone 50 mg tablet 100 mg PO .HS PRN (Reason: insomnia) Qty: 60 2RF (DME) Diabetic shoes with 3 sets of inserts See Rx Instructions .Route .MEDSUPPLY Qty: 1 0RF Rx Instructions: As directed (DME) ASO to the Left Ankle See Rx Instructions .Route .MEDSUPPLY Qty: 1 0RF Rx Instructions: As directed albuterol sulfate [Ventolin HFA] 90 mcg/actuation HFA aerosol inhaler 2 puff INHALATION Q6H PRN (Reason: Shortness Of Breath Or Wheezing) Qty: 8.5 8RF amitriptyline 50 mg tablet 50 mg PO DAILY Qty: 90 3RF Rx Instructions: TAKE ONE BY MOUTH DAILY budesonide-formoterol 160-4.5 mcg/actuation HFA aerosol inhaler 2 inh inhalation BID Qty: 10.2 8RF Rx Instructions: 340 be if unaffordable. ferrous gluconate 324 mg (37.5 mg iron) tablet 324 mg PO DAILY Qty: 90 3RF omeprazole 40 mg capsule,delayed release(DR/EC) 40 mg PO DAILY Qty: 90 3RF spironolactone 50 mg tablet 50 mg PO DAILY Qty: 90 3RF gabapentin 300 mg capsule 300 mg PO TID Qty: 240 3RF (DME) 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 meter [Accu-Chek Kori Plus Meter] Misc See Rx Instructions .ROUTE .MEDSUPPLY Qty: 1 0RF Rx Instructions: As directed (DME) lancets [Accu-Chek Fastclix Lancet Drum] Misc See Rx Instructions .ROUTE .MEDSUPPLY Qty: 100 1RF Rx Instructions: TWICE DAILY (DME) Accu-Chek Kori Plus test strp Strip See Rx Instructions .ROUTE .MEDSUPPLY Qty: 100 1RF Rx Instructions: twice daily (DME) FreeStyle Zackery 2 Sensor Kit See Rx Instructions .ROUTE .MEDSUPPLY Qty: 2 3RF Rx Instructions: monitors blood sugars (DME) FreeStyle Zackery 2 [place] Misc See Rx Instructions .ROUTE .MEDSUPPLY Qty: 1 0RF Rx Instructions: used to read sensers montelukast [Singulair] 10 mg tablet 10 mg PO DAILY Qty: 90 1RF (DME) Omnipod Dash Pods (Gen 4) Cartridge See Rx Instructions .Route Qty: 5 3RF Rx Instructions: As directed insulin aspart U-100 [Novolog U-100 Insulin aspart] 100 unit/mL solution See Rx Instructions SUBCUT .COMPLEX Qty: 140 3RF Rx Instructions: maximum 200 units/day through pump atenolol 25 mg tablet 25 mg PO BID Qty: 180 1RF furosemide 40 mg tablet 40 mg PO DAILY Qty: 90 1RF potassium chloride 20 mEq tablet extended release 20 meq PO DAILY Qty: 90 1RF lisinopril-hydrochlorothiazide 20-25 mg tablet 1 tab PO DAILY Qty: 90 1RF metformin 500 mg tablet extended release 24 hr 500 mg PO BID Qty: 180 3RF Rx Instructions: Take one tablet by mouth twice a day. acetaminophen 500 mg tablet 500 mg PO Q6H PRN (Reason: pain) Qty: 30 0RF hydrocodone-acetaminophen 5-325 mg tablet 1 tab PO BID PRN (Reason: pain) 3 Days Qty: 5 0RF Discharge Orders: Discharge ED (Routine); Ordered 06/09/22 Ordered By: Sergio Chu Referrals: Stevie Brock MD [Primary Care Provider] - 1-3 days Patient Instructions: Low Back Strain (ED), Acute Low Back Pain (ED), Opioid Safety, Pain Management Coding Level of Care Code ED Clinical Physician Assistant for Leonela Fwtish Exam Comprehensive
[2022-06-09 20:25] VITALS: BP 175/92; PULSE 95; RESP 22; O2SAT 95
[2022-06-09 20:29] VITALS: RESP 20
[2022-06-09 20:29] LABS: Bilirubin Urine Negative (Negative); Blood Urine Negative (Negative); Glucose Urine UA Negative (Normal); Ketones Urine Negative (Negative); Leukocyte Esterase Urine Negative (Negative); Nitrate Urine Negative; Protein Urine Negative (Negative); Specific Gravity, Urine >= 1.030 (1.005-1.030); Urine Color Yellow (Yellow); Urobilinogen Urine 0.2 mg/dL (Negative)
[2022-06-09] MEDS: oxyCODONE-APAP 5-325 mg Tablet 2 TAB PO (20:29)
[2022-06-09 20:37] LABS: Add Urine Microscopic? YES
[2022-06-09 20:39] LABS: Add Urine Culture? No; Bacteria Urine 2+ /hpf; RBC Urine 0-4 /hpf (0-2); Squamous Epithelial Cell Urine 55-80 /hpf (0-5)
[2022-06-09 20:50] VITALS: BP 124/73; PULSE 85; RESP 20; O2SAT 94
== END 2022-06-09 20:51 | disposition home or self-care (01) ==
PROVIDERS: Emergency Provider Emergency Medicine; PCP Internal Medicine
DX: M54.50 Low back pain, unspecified (principal); E11.9 Type 2 diabetes mellitus without complications; I10 Essential (primary) hypertension; J45.909 Unspecified asthma, uncomplicated; F17.210 Nicotine dependence, cigarettes, uncomplicated; Z79.4 Long term (current) use of insulin; Z79.84 Long term (current) use of oral hypoglycemic drugs; W01.0XXA Fall on same level from slipping, tripping and stumbling without subsequent striking against object, initial encounter
CPT/HCPCS: 81001; 99283

== ENCOUNTER 2022-06-16 18:40 | Emergency (ER) | payer MEDICARE, MEDICAID, SELFPAY ==
[2022-06-16 18:45] VITALS: BP 119/72; PULSE 93; RESP 18; TEMP 36.3; O2SAT 94; BMI 65.3
--- NOTE | 2022-06-16 19:25 | W.ED.BACK ---
HPI - Back Pain/Injury General: Chief Complaint: Back Pain/Injury Stated Complaint: back pain Time Seen by Provider: 06/16/22 18:45 History of Present Illness: Patient is a 36-year-old female comes to the ED with back pain. Patient says last week back on June 09 she had a fall causing back pain. X-rays of back were performed in the ED at that time and they showed no acute fractures or findings. She is still having mid and lower back pain since fall. Denies any new injury or trauma to cause back pain. She rates her pain currently 9 out of 10. She has been applying cold pack on her back and taking Tylenol and methocarbamol to help with symptoms. Associated symptoms: Deny abdominal pain, chills, dysuria, fatigue, fever(s), hematuria, nausea or vomiting Review of Systems Const: Denies: fever(s), chills or fatigue Eyes: Denies: change in vision or eye discomfort ENMT: Denies: throat pain, odynophagia, nasal discharge or nasal congestion Card: Denies: chest pain, palpitations, edema, swelling of feet/ankles, dyspnea on exertion or orthopnea Resp: Denies: dyspnea, productive cough or non-productive cough GI: Denies: abdominal pain, nausea, vomiting, diarrhea, constipation or hematochezia : Denies: flank pain, dysuria or hematuria Musc: Reports: back pain; Denies: neck pain or extremity swelling Skin/Breast: Denies: rash or new lesions Neuro: Denies: headache(s), numbness in extremities or weakness in extremities REPLACED BY [facility] ED PFSH: Medical History (Updated 06/16/22 @ 19:31 by KAMRON England) Amenorrhea Asthma Benign essential HTN Bilateral chronic knee pain Bilateral leg edema Dyslipidemia GERD (gastroesophageal reflux disease) residential (current) use of opiate analgesic Morbid obesity with BMI of 60.0-69.9, adult Muscle spasms of both lower extremities Pain management contract signed Prolonged depression Spinal stenosis, thoracic region Type 2 diabetes mellitus, with long-term current use of insulin Surgical History History of cholecystectomy Family History Father CAD (coronary artery disease) Diabetes Hypertension Family/Other Cancer Mother Diabetes Hypertension Social History Smoking and tobacco status: current every day smoker cigarettes Packs smoked per day: 1.5 Years cigarettes smoked: 20 [ Other cigarette details: 2 packs + daily] Quit status (tobacco): considering quitting Second hand smoke exposure: Yes Smoking risk assessment/counseling performed?: No Alcohol intake: former Year of sobriety/quit date alcohol: 2017 Desire information about alcohol rehabilitation?: No Counseling given: No Desire information about substance/drug rehabilitation?: No Counseling given: No Caregiver/support person: Yes Household members: spouse and family Marital status: Current occupational status: disabled Current occupation: disabled History of recent travel: No Female Reproductive History: Date of last menstrual period: 08/29/21 Physical Exam Const: COMMON NORMALS: no acute distress, patient oriented x3 and alert GENERAL APPEARANCE: cooperative HENMT: COMMON NORMALS: normocephalic HEAD & SCALP: normocephalic MOUTH: Normal oral and palatal mucosa present THROAT: posterior oropharynx normal and uvula midline Neck/C-Spine: COMMON NORMALS: supple GENERAL: Yes normal visual inspection Resp: COMMON NORMALS: normal respiratory effort, No retractions, No use of accessory muscles and clear to auscultation bilaterally AUSCULTATION: clear to auscultation bilaterally Cardio: COMMON NORMALS: regular rate, regular rhythm, S1 normal heart sound present, S2 normal heart sound present, No gallops present (Cardio), No clicks present (Cardio), No murmurs present (Cardio) and Peripheral pulses 2+ throughout RATE: regular rate RHYTHM: regular rhythm HEART SOUNDS: S1 normal heart sound present and S2 normal heart sound present PERIPHERAL PULSES: Peripheral pulses 2+ throughout GI: COMMON NORMALS: Normal to inspection, nondistended, normoactive bowel sounds present, Soft to palpation, non-tender and no masses PALPATION: Yes Soft to palpation : COMMON NORMALS: Yes no CVA tenderness BLADDER/KIDNEY EXAM: Yes no CVA tenderness Back/Pelvis: COMMON NORMALS: no CVA tenderness OTHER: Patient has mild soft tissue tenderness throughout mid and lower back. No spinal tenderness upon palpation. Extremity: COMMON NORMALS: normal to inspection Neuro: COMMON NORMALS: patient oriented x3 SENSORIUM/ORIENTATION: Yes alert GAIT: Yes Normal gait present Skin: GENERAL SKIN EXAM: dry skin Course Vital Signs: Vital signs: Vital Signs Temperature 97.4 F L 06/16/22 18:45 Pulse Rate 93 06/16/22 18:45 Respiratory Rate 20 H 06/16/22 19:40 Blood Pressure 119/72 06/16/22 18:45 Pulse Oximetry 94 06/16/22 18:45 Oxygen Delivery Me thod 06/16/22 18:45 MDM - Back Pain/Injury Medical Decision Making Patient is a 36-year-old female comes to the ED with back pain. Patient says last week back on June 09 she had a fall causing back pain. X-rays of back were done and showed no acute findings. She is still having mid and lower back pain since fall. Denies any new injury or trauma to cause back pain. Vital stable. Patient has mild soft tissue tenderness throughout mid and lower back. No spinal tenderness upon palpation. Patient diagnosed with back pain due to injury. She has an appointment with her pain med doctor in 10 days. She was discharged with a prescription for muscle relaxer. Patient understood and agreed with plan. Discharge Plan Discharge Patient Disposition: Home Clinical Impression: Back pain due to injury Condition: Stable Prescriptions: New cyclobenzaprine 10 mg tablet 10 mg PO BID PRN (Reason: muscle spasm) Qty: 20 0RF No Action (DME) Dexcom G4 Transmitter Device See Rx Instructions .Route Rx Instructions: As directed buspirone 10 mg tablet 10 mg PO TID Qty: 90 2RF citalopram 40 mg tablet 40 mg PO DAILY Qty: 90 0RF trazodone 50 mg tablet 100 mg PO .HS PRN (Reason: insomnia) Qty: 60 2RF (DME) Diabetic shoes with 3 sets of inserts See Rx Instructions .Route .MEDSUPPLY Qty: 1 0RF Rx Instructions: As directed (DME) ASO to the Left Ankle See Rx Instructions .Route .MEDSUPPLY Qty: 1 0RF Rx Instructions: As directed albuterol sulfate [Ventolin HFA] 90 mcg/actuation HFA aerosol inhaler 2 puff INHALATION Q6H PRN (Reason: Shortness Of Breath Or Wheezing) Qty: 8.5 8RF amitriptyline 50 mg tablet 50 mg PO DAILY Qty: 90 3RF Rx Instructions: TAKE ONE BY MOUTH DAILY budesonide-formoterol 160-4.5 mcg/actuation HFA aerosol inhaler 2 inh inhalation BID Qty: 10.2 8RF Rx Instructions: 340 be if unaffordable. ferrous gluconate 324 mg (37.5 mg iron) tablet 324 mg PO DAILY Qty: 90 3RF omeprazole 40 mg capsule,delayed release(DR/EC) 40 mg PO DAILY Qty: 90 3RF spironolactone 50 mg tablet 50 mg PO DAILY Qty: 90 3RF gabapentin 300 mg capsule 300 mg PO TID Qty: 240 3RF (DME) 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 meter [Accu-Chek Kori Plus Meter] Misc See Rx Instructions .ROUTE .MEDSUPPLY Qty: 1 0RF Rx Instructions: As directed (DME) lancets [Accu-Chek Fastclix Lancet Drum] Misc See Rx Instructions .ROUTE .MEDSUPPLY Qty: 100 1RF Rx Instructions: TWICE DAILY (DME) Accu-Chek Kori Plus test strp Strip See Rx Instructions .ROUTE .MEDSUPPLY Qty: 100 1RF Rx Instructions: twice daily (DME) FreeStyle Zackery 2 Sensor Kit See Rx Instructions .ROUTE .MEDSUPPLY Qty: 2 3RF Rx Instructions: monitors blood sugars (DME) FreeStyle Zackery 2 Conrad Misc See Rx Instructions .ROUTE .MEDSUPPLY Qty: 1 0RF Rx Instructions: used to read sensers (DME) Omnipod Dash Pods (Gen 4) Cartridge See Rx Instructions .Route Qty: 5 3RF Rx Instructions: As directed insulin aspart U-100 [Novolog U-100 Insulin aspart] 100 unit/mL solution See Rx Instructions SUBCUT .COMPLEX Qty: 140 3RF Rx Instructions: maximum 200 units/day through pump atenolol 25 mg tablet 25 mg PO BID Qty: 180 1RF furosemide 40 mg tablet 40 mg PO DAILY Qty: 90 1RF potassium chloride 20 mEq tablet extended release 20 meq PO DAILY Qty: 90 1RF lisinopril-hydrochlorothiazide 20-25 mg tablet 1 tab PO DAILY Qty: 90 1RF metformin 500 mg tablet extended release 24 hr 500 mg PO BID Qty: 180 3RF Rx Instructions: Take one tablet by mouth twice a day. montelukast [Singulair] 10 mg tablet 10 mg PO DAILY Qty: 90 1RF acetaminophen 500 mg tablet 500 mg PO Q6H PRN (Reason: pain) Qty: 30 0RF hydrocodone-acetaminophen 5-325 mg tablet 1 tab PO BID PRN (Reason: pain) 3 Days Qty: 5 0RF methocarbamol 750 mg tablet 750 mg PO TID Qty: 10 0RF Discharge Orders: Discharge ED (Routine); Ordered 06/16/22 Ordered By: Quinn Zhong Referrals: Stevie Brock MD [Primary Care Provider] - Discharge Diet: Regular Discharge Activity: Increase activity as tolerated Activity Restrictions/Additional Instructions: Follow-up with medical provider as directed. Take medications as prescribed. Return to the ER or your medical provider if condition worsens. Please read and understand discharge instructions. Thank you for choosing [facility] for your healthcare needs today. Please realize this is an emergency room and that we are providing you with a medical screening exam and this may not be complete and all inclusive of all the testing and or work up that you may need to determine your ailment or severity of your illness. It is very important that you follow up as instructed or that you return to the Emergency Department should you have concerns or if your condition changes or worsens in any way. Coding Level of Care Code ED Road Consultant for Leonela Fwd Exam Comprehensive
[2022-06-16 19:40] VITALS: RESP 20
[2022-06-16] MEDS: orphenadrine 30 mg/mL Inj 2 mL 60 MG IM (19:40)
[2022-06-16] MEDS: oxyCODONE-APAP 5-325 mg Tablet 1 TAB PO (19:40)
== END 2022-06-16 19:44 | disposition home or self-care (01) ==
PROVIDERS: Emergency Provider Physician Assistant; PCP Internal Medicine
DX: M54.50 Low back pain, unspecified (principal)
CPT/HCPCS: 96372; 99284; J2360

== ENCOUNTER 2022-06-18 13:46 | Emergency (ER) | payer MEDICARE, MEDICAID, SELFPAY ==
[2022-06-18 14:43] VITALS: BP 113/63; PULSE 78; RESP 18; TEMP 36.7; O2SAT 95; BMI 65.5
--- NOTE | 2022-06-18 15:44 | XRR_ITS ---
PROCEDURE INFORMATION: Exam: XR Thoracic Spine Exam date and time: 06/18/2022 3:49 PM Age: 36 years old Clinical indication: Pain and injury or trauma; Fall; Blunt trauma (contusions or hematomas); Pain in thoracic spine; Additional info: Fall with mid back pain TECHNIQUE: Imaging protocol: Radiologic exam of the thoracic spine. Views: 3 views. COMPARISON: MR thoracic spin wo con* [id number] 04/15/2022 3:19 PM FINDINGS: Bones/joints: Normal. No acute fracture. Normal alignment. Soft tissues: Unremarkable. XR/XR thoracic spine 3V* [id number] IMPRESSION: No acute findings.
[2022-06-18] MEDS: HYDROcodone-acetaminophen 7.5-325 mg Tablet 1 TAB PO (15:49)
--- NOTE | 2022-06-18 15:52 | W.ED.BACK ---
HPI - Back Pain/Injury General: Chief Complaint: Back Pain/Injury Stated Complaint: Fell and has back pain Time Seen by Provider: 06/18/22 15:40 History of Present Illness: Patient is a 36-year-old female comes to the ED with mid back pain. Patient states she had a fall today while trying to get into her car. She fell backwards and her mid back hit the steps. Denies any head trauma or loss of consciousness. She rates her back pain a 10 out of 10. Denies any other injuries or symptoms. Patient has chronic back pain and has her next appointment with pain management on June 26. Associated symptoms: Deny abdominal pain, chills, dysuria, fatigue, fever(s), hematuria, nausea or vomiting Review of Systems Const: Denies: fever(s), chills or fatigue Eyes: Denies: change in vision or eye discomfort ENMT: Denies: throat pain, odynophagia, nasal discharge or nasal congestion Card: Denies: chest pain, palpitations, edema, swelling of feet/ankles, dyspnea on exertion or orthopnea Resp: Denies: dyspnea, productive cough or non-productive cough GI: Denies: abdominal pain, nausea, vomiting, diarrhea, constipation or hematochezia : Denies: flank pain, dysuria or hematuria Musc: Reports: back pain; Denies: neck pain or extremity swelling Skin/Breast: Denies: rash or new lesions Neuro: Denies: headache(s), numbness in extremities or weakness in extremities PFS ED PFSH: Medical History (Updated 06/18/22 @ 16:59 by KAMRON [place]) Amenorrhea Asthma Benign essential HTN Bilateral chronic knee pain Bilateral leg edema Dyslipidemia GERD (gastroesophageal reflux disease) [facility]PC (current) use of opiate analgesic Morbid obesity with BMI of 60.0-69.9, adult Muscle spasms of both lower extremities Pain management contract signed Prolonged depression Spinal stenosis, thoracic region Type 2 diabetes mellitus, with long-term current use of insulin Surgical History History of cholecystectomy Family History Father CAD (coronary artery disease) Diabetes Hypertension Family/Other Cancer Mother Diabetes Hypertension Social History Smoking and tobacco status: current every day smoker cigarettes Packs smoked per day: 1.5 Years cigarettes smoked: 20 [ Other cigarette details: 2 packs + daily] Quit status (tobacco): considering quitting Second hand smoke exposure: Yes Smoking risk assessment/counseling performed?: No Alcohol intake: former Year of sobriety/quit date alcohol: 2017 Desire information about alcohol rehabilitation?: No Counseling given: No Desire information about substance/drug rehabilitation?: No Counseling given: No Caregiver/support person: Yes Household members: spouse and family Marital status: Current occupational status: disabled Current occupation: disabled History of recent travel: No Female Reproductive History: Date of last menstrual period: 08/29/21 Physical Exam Const: COMMON NORMALS: no acute distress, patient oriented x3 and alert GENERAL APPEARANCE: cooperative NUTRITIONAL APPEARANCE: obese morbidly obese HENMT: COMMON NORMALS: normocephalic HEAD & SCALP: normocephalic MOUTH: Normal oral and palatal mucosa present THROAT: posterior oropharynx normal and uvula midline Neck/C-Spine: COMMON NORMALS: supple GENERAL: Yes normal visual inspection Resp: COMMON NORMALS: normal respiratory effort, No retractions, No use of accessory muscles and clear to auscultation bilaterally AUSCULTATION: clear to auscultation bilaterally Cardio: COMMON NORMALS: regular rate, regular rhythm, S1 normal heart sound present, S2 normal heart sound present, No gallops present (Cardio), No clicks present (Cardio), No murmurs present (Cardio) and Peripheral pulses 2+ throughout RATE: regular rate RHYTHM: regular rhythm HEART SOUNDS: S1 normal heart sound present and S2 normal heart sound present PERIPHERAL PULSES: Peripheral pulses 2+ throughout GI: COMMON NORMALS: Normal to inspection, nondistended, normoactive bowel sounds present, Soft to palpation, non-tender and no masses PALPATION: Yes Soft to palpation : COMMON NORMALS: Yes no CVA tenderness BLADDER/KIDNEY EXAM: Yes no CVA tenderness Back/Pelvis: COMMON NORMALS: no CVA tenderness THORACIC SPINE/UPPER BACK: Yes thoracic spinal tenderness and Yes paraspinal muscle tenderness Extremity: COMMON NORMALS: normal to inspection Neuro: COMMON NORMALS: patient oriented x3 SENSORIUM/ORIENTATION: Yes alert GAIT: Yes Normal gait present Skin: GENERAL SKIN EXAM: dry skin Course Vital Signs: Vital signs: Vital Signs Temperature 98.0 F 06/18/22 14:43 Pulse Rate 78 06/18/22 14:43 Respiratory Rate 18 06/18/22 14:43 Blood Pressure 113/63 06/18/22 14:43 Pulse Oximetry 95 06/18/22 14:43 Oxygen Delivery Me thod 06/18/22 14:43 MDM - Back Pain/Injury Medical Decision Making Patient is a 36-year-old female comes to the ED with mid back pain. Patient states she had a fall today while trying to get into her car. She fell backwards and her mid back hit the steps. Denies any head trauma or loss of consciousness. Thoracic spine x-ray showed no acute findings. Patient was diagnosed with back pain and injury and discharged home. She was told to follow-up with pain management clinic at her scheduled appointment on June 26. Labs Radiology Impressions Thoracic Spine X-Ray 06/18/22 15:44 IMPRESSION: No acute findings. Discharge Plan Discharge Patient Disposition: Home Clinical Impression: Back pain due to injury Condition: Stable Prescriptions: No Action (DME) Dexcom G4 Transmitter Device See Rx Instructions .Route Rx Instructions: As directed Mounjaro 2.5 mg/0.5 mL pen injector 2.5 mg SUBCUT .weekly Qty: 2 0RF Mounjaro 5 mg/0.5 mL pen injector 5 mg SUBCUT .weekly Qty: 4 0RF Rx Instructions: start after completing 1 month of 2.5 mg weekly dose buspirone 10 mg tablet 10 mg PO TID Qty: 90 2RF citalopram 40 mg tablet 40 mg PO DAILY Qty: 90 0RF trazodone 50 mg tablet 100 mg PO .HS PRN (Reason: insomnia) Qty: 60 2RF (DME) Diabetic shoes with 3 sets of inserts See Rx Instructions .Route .MEDSUPPLY Qty: 1 0RF Rx Instructions: As directed (DME) ASO to the Left Ankle See Rx Instructions .Route .MEDSUPPLY Qty: 1 0RF Rx Instructions: As directed albuterol sulfate [Ventolin HFA] 90 mcg/actuation HFA aerosol inhaler 2 puff INHALATION Q6H PRN (Reason: Shortness Of Breath Or Wheezing) Qty: 8.5 8RF amitriptyline 50 mg tablet 50 mg PO DAILY Qty: 90 3RF Rx Instructions: TAKE ONE BY MOUTH DAILY budesonide-formoterol 160-4.5 mcg/actuation HFA aerosol inhaler 2 inh inhalation BID Qty: 10.2 8RF Rx Instructions: 340 be if unaffordable. ferrous gluconate 324 mg (37.5 mg iron) tablet 324 mg PO DAILY Qty: 90 3RF omeprazole 40 mg capsule,delayed release(DR/EC) 40 mg PO DAILY Qty: 90 3RF spironolactone 50 mg tablet 50 mg PO DAILY Qty: 90 3RF gabapentin 300 mg capsule 300 mg PO TID Qty: 240 3RF (DME) 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 meter [Accu-Chek Kori Plus Meter] Misc See Rx Instructions .ROUTE .MEDSUPPLY Qty: 1 0RF Rx Instructions: As directed (DME) lancets [Accu-Chek Fastclix Lancet Drum] Misc See Rx Instructions .ROUTE .MEDSUPPLY Qty: 100 1RF Rx Instructions: TWICE DAILY (DME) Accu-Chek Kori Plus test strp Strip See Rx Instructions .ROUTE .MEDSUPPLY Qty: 100 1RF Rx Instructions: twice daily (DME) FreeStyle Zackery 2 Sensor Kit See Rx Instructions .ROUTE .MEDSUPPLY Qty: 2 3RF Rx Instructions: monitors blood sugars (DME) FreeStyle Zackery 2 [place] Misc See Rx Instructions .ROUTE .MEDSUPPLY Qty: 1 0RF Rx Instructions: used to read sensers (DME) Omnipod Dash Pods (Gen 4) Cartridge See Rx Instructions .Route Qty: 5 3RF Rx Instructions: As directed insulin aspart U-100 [Novolog U-100 Insulin aspart] 100 unit/mL solution See Rx Instructions SUBCUT .COMPLEX Qty: 140 3RF Rx Instructions: maximum 200 units/day through pump atenolol 25 mg tablet 25 mg PO BID Qty: 180 1RF furosemide 40 mg tablet 40 mg PO DAILY Qty: 90 1RF potassium chloride 20 mEq tablet extended release 20 meq PO DAILY Qty: 90 1RF lisinopril-hydrochlorothiazide 20-25 mg tablet 1 tab PO DAILY Qty: 90 1RF metformin 500 mg tablet extended release 24 hr 500 mg PO BID Qty: 180 3RF Rx Instructions: Take one tablet by mouth twice a day. montelukast [Singulair] 10 mg tablet 10 mg PO DAILY Qty: 90 1RF acetaminophen 500 mg tablet 500 mg PO Q6H PRN (Reason: pain) Qty: 30 0RF hydrocodone-acetaminophen 5-325 mg tablet 1 tab PO BID PRN (Reason: pain) 3 Days Qty: 5 0RF methocarbamol 750 mg tablet 750 mg PO TID Qty: 10 0RF cyclobenzaprine 10 mg tablet 10 mg PO BID PRN (Reason: muscle spasm) Qty: 20 0RF Discharge Orders: Discharge ED (Routine); Ordered 06/18/22 Ordered By: Quinn Zhong Referrals: Stevie Brock MD [Primary Care Provider] - Discharge Diet: Regular Discharge Activity: Increase activity as tolerated Activity Restrictions/Additional Instructions: Follow-up with medical provider as directed. Take medications as prescribed. Return to the ER or your medical provider if condition worsens. Please read and understand discharge instructions. Thank you for choosing [facility] [place] for your healthcare needs today. Please realize this is an emergency room and that we are providing you with a medical screening exam and this may not be complete and all inclusive of all the testing and or work up that you may need to determine your ailment or severity of your illness. It is very important that you follow up as instructed or that you return to the Emergency Department should you have concerns or if your condition changes or worsens in any way. Coding Level of Care Code ED Management Advisor for Leonela Escobedo Exam Comprehensive
== END 2022-06-18 17:10 | disposition home or self-care (01) ==
PROVIDERS: Emergency Provider Physician Assistant; PCP Internal Medicine
DX: S29.9XXA Unspecified injury of thorax, initial encounter (principal); Z79.84 Long term (current) use of oral hypoglycemic drugs; Z79.4 Long term (current) use of insulin; I10 Essential (primary) hypertension; E78.5 Hyperlipidemia, unspecified; W19.XXXA Unspecified fall, initial encounter; E11.40 Type 2 diabetes mellitus with diabetic neuropathy, unspecified; E78.2 Mixed hyperlipidemia; K76.0 Fatty (change of) liver, not elsewhere classified; Z79.891 Long term (current) use of opiate analgesic; E66.01 Morbid (severe) obesity due to excess calories; Z68.44 Body mass index [BMI] 60.0-69.9, adult; F17.210 Nicotine dependence, cigarettes, uncomplicated
CPT/HCPCS: 72072; 99214; 99283

== ENCOUNTER → 2022-06-20 07:53 | Outpatient (BNVA) | payer MEDICARE, MEDICAID, SELFPAY | PROVIDERS: PCP Internal Medicine; Visit Provider Podiatrist Foot & Ankle Surgery | DX: S82.55XD Nondisplaced fracture of medial malleolus of left tibia, subsequent encounter for closed fracture with routine healing (principal); X58.XXXD Exposure to other specified factors, subsequent encounter | CPT/HCPCS: 99213; 99214 ==

== ENCOUNTER 2022-06-23 21:28 | Emergency (ER) | payer MEDICARE, MEDICAID, SELFPAY ==
[2022-06-23 21:33] VITALS: BP 142/75; PULSE 91; RESP 20; TEMP 36.7; O2SAT 93; BMI 64.6
--- NOTE | 2022-06-23 21:39 | XRR_ITS ---
PROCEDURE INFORMATION: Exam: XR Chest Exam date and time: 06/23/2022 10:25 PM Age: 36 years old Clinical indication: Pain; Chest pressure; Additional info: Chest pain TECHNIQUE: Imaging protocol: Radiologic exam of the chest. Views: 1 view. COMPARISON: CR XR chest 1V portable [id number] 01/12/2022 8:45 PM FINDINGS: Lungs: Low lung volumes and bronchovascular crowding. Bibasilar opacities likely atelectasis although inflammation or infection cannot be excluded. No consolidative opacity. Pleural spaces: Unremarkable. No pleural effusion. No pneumothorax. Heart/Mediastinum: The cardiomediastinal silhouette is stable in appearance. Bones/joints: Unremarkable. XR/XR chest 1V portable [id number] IMPRESSION: 1. Low lung volumes and bronchovascular crowding. 2. Mild bibasilar opacities may represent atelectasis, inflammation, or infection. 3. Trace pleural effusions cannot be excluded..
--- NOTE | 2022-06-23 21:42 | ECG_ITS ---
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 Measurements Intervals [place] Rate: 90 P: 47 [place]: 196 QRS: 50 QRSD: 91 T: 40 QT: 378 QTc: 463 Interpretive Statements SINUS RHYTHM POSSIBLE LEFT ATRIAL ENLARGEMENT [-0.1mV P-WAVE IN V1/V2] Compared to ECG 01/12/2022 20:42:02 No significant changes Electronically Signed On 06-23-2022 22:03:36 CDT by Cullen Gavin M.D. [id number]
--- NOTE | 2022-06-23 22:16 | ED_ITS ---
HPI - Chest Pain General: Chief Complaint: Chest Pain Stated Complaint: cp Time Seen by Provider: 06/23/22 22:04 Source: patient Mode of arrival: ambulatory Limitations: no limitations History of Present Illness: 36-year-old female is very well-known to the ER has a history of morbid obesity states started having some chest pain 1 to 2 hours ago states that over chest and went to her left arm pain sharp rated a 4 out of 10 denies any shortness of breath denies any nausea denies any diaphoresis. Denies any worsening proved factors. Associated symptoms: Deny abdominal pain, dyspnea, fever(s), nausea or vomiting Review of Systems Const: Denies: fever(s), chills, body aches or change in appetite Eyes: Denies: blurry vision or eye discomfort ENMT: Denies: throat pain or dental pain Card: Reports: chest pain Resp: Denies: dyspnea GI: Denies: abdominal pain, nausea, vomiting or diarrhea : Denies: dysuria Musc: Denies: neck pain or back pain Skin/Breast: Denies: rash Neuro: Denies: headache(s) Psych: Denies: depression Sunday/Lymph: Denies: easy bruising All/Imm: Denies: urticaria PFSH ED PFSH: Medical History (Updated 06/23/22 @ 23:10 by Kat Yang MD) Amenorrhea Asthma Benign essential HTN Bilateral chronic knee pain Bilateral leg edema Dyslipidemia GERD (gastroesophageal reflux disease) 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 Morbid obesity with BMI of 60.0-69.9, adult Muscle spasms of both lower extremities Pain management contract signed Prolonged depression Spinal stenosis, thoracic region Type 2 diabetes mellitus, with long-term current use of insulin Surgical History History of cholecystectomy Family History Father CAD (coronary artery disease) Diabetes Hypertension Family/Other Cancer Mother Diabetes Hypertension Social History Smoking and tobacco status: current every day smoker cigarettes Packs smoked per day: 1.5 Years cigarettes smoked: 20 [ Other cigarette details: 2 packs + daily] Quit status (tobacco): considering quitting Second hand smoke exposure: Yes Smoking risk assessment/counseling performed?: No Alcohol intake: former Year of sobriety/quit date alcohol: 2017 Desire information about alcohol rehabilitation?: No Counseling given: No Desire information about substance/drug rehabilitation?: No Counseling given: No Caregiver/support person: Yes Household members: spouse and family Marital status: Current occupational status: disabled Current occupation: disabled History of recent travel: No Female Reproductive History: Date of last menstrual period: 08/29/21 Physical Exam Const: COMMON NORMALS: no acute distress, patient oriented x3 and healthy appearing HENMT: COMMON NORMALS: normocephalic and atraumatic HEAD & SCALP: normocephalic and atraumatic Eye: COMMON NORMALS: Equal, round and reactive pupils present and EOMs intact bilaterally PUPIL: Yes Equal, round and reactive pupils present Neck/C-Spine: COMMON NORMALS: full ROM and supple Chest: COMMONS NORMALS: normal inspection of the chest and normal palpation of entire chest wall Resp: COMMON NORMALS: normal respiratory effort, No retractions, No use of accessory muscles and clear to auscultation bilaterally AUSCULTATION: clear to auscultation bilaterally Cardio: COMMON NORMALS: regular rate, regular rhythm and No murmurs present (Cardio) RATE: regular rate RHYTHM: regular rhythm GI: COMMON NORMALS: Normal to inspection, nondistended, normoactive bowel sounds present, Soft to palpation, non-tender and no masses PALPATION: Yes Soft to palpation Extremity: COMMON NORMALS: normal to inspection and full ROM Neuro: COMMON NORMALS: patient oriented x3, moves all extremities and no focal motor deficits Psych: COMMON NORMALS: mental status grossly normal, Normal thought process present and cooperative THOUGHT PROCESS: Normal thought process present Skin: COMMON NORMALS: no rashes or lesions noted and no wounds GENERAL SKIN EXAM: no rashes or lesions noted Course Vital Signs: Vital signs: Vital Signs Temperature 98.1 F 06/23/22 21:33 Pulse Rate 97 06/23/22 22:58 Respiratory Rate 20 H 06/23/22 21:33 Blood Pressure 177/88 06/23/22 22:58 Pulse Oximetry 91 06/23/22 22:58 Oxygen Delivery Me thod 06/23/22 22:58 MDM - Chest Pain Medical Decision Making Patient presents for chest pain she has had chronic chest pain EKG troponin here is normal her pain is improved she has no signs of pulmonary embolism or acute coronary syndrome she is stable for discharge she is to follow-up with her PCP in 2 to 4 days return if worsening she understands agrees to plan. Lab Data : 06/23/22 22:15 06/23/22 22:15 Radiology Impressions Chest X-Ray 06/23/22 21:39 IMPRESSION: 1. Low lung volumes and bronchovascular crowding. 2. Mild bibasilar opacities may represent atelectasis, inflammation, or infection. 3. Trace pleural effusions cannot be excluded.. Laboratory Results WBC 12.9 10^3/uL (4.0-10.0) H 06/23/22 22:15 RBC 5.06 10^6/uL (4.1-5.3) 06/23/22 22:15 Hgb 14.6 g/dL (11.5-15.3) 06/23/22:15 Hct 45.7 % (37.0-47.0) 06/23/22:15 MCV 90.3 fl (81-99) 06/23/22 22:15 MCH 28.9 pg (28.0-34.0) 06/23/22 22:15 MCHC 31.9 g/dL (30.0-36.0) 06/23/22:15 RDW 13.7 % (12.1-15.1) 06/23/22 22:15 Plt Count 289 10^3/cmm (130-400) 06/23/22 22:15 MPV 11.2 fL (7.4-10.4) H 06/23/22 22:15 Neut % (Auto) 71.8 % 06/23/22:15 Lymph % (Auto) 17.7 % 06/23/22 22:15 [place] % (Auto) 7.1 % 06/23/22:15 Eos % (Auto) 1.9 % 06/23/22:15 Baso % (Auto) 0.5 % 06/23/22:15 Neut # (Auto) 9.30 10^3/uL (1.8-7.7) H 06/23/22 22:15 Lymph # (Auto) 2.3 10^3/uL (0.8-4.8) 10/16/22 22:15 [place] # (Auto) 0.9 10^3/uL (0.2-0.9) 06/23/22 22:15 Eos # (Auto) 0.2 10^3/uL (0.0-0.8) 06/23/22 22:15 Baso # (Auto) 0.1 10^3/uL (0.0-0.1) 06/23/22 22:15 Nucleated RBC % (auto) 0 % 06/23/22 22:15 Nucleated RBCs # 0.0 /100WBC 06/23/22 22:15 Sodium 134 mmol/L (136-145) L 06/23/22 22:15 Potassium 4.6 mmol/L (3.5-5.1) 06/23/22 22:15 Chloride 96 mmol/L (98-107) L 06/23/22 22:15 Carbon Dioxide 27 mmol/L (22-29) 06/23/22 22:15 Anion Gap 15.6 (5-19) 06/23/22 22:15 BUN 18 mg/dL (6-20) 06/23/22 22:15 Creatinine 1.0 mg/dL (0.5-0.9) H 06/23/22 22:15 GFR Calculation 63.5 mL/min (90-130) L 06/23/22 22:15 Glucose 145 mg/dL (65-115) H 06/23/22 22:15 Calculated Osmolality 282 mOsm/kg (285-295) L 06/23/22 22:15 Calcium 9.7 mg/dL (8.5-10.5) 06/23/22 22:15 Total Bilirubin 0.3 mg/dL (0.15-1.2) 06/23/22 22:15 AST 15 U/L (0-32) 06/23/22 22:15 ALT 82 U/L (0-33) H 06/23/22 22:15 Alkaline Phosphatase 113 U/L (35-105) H 06/23/22 22:15 Troponin T Baseline 6 ng/L (0-10) 06/23/22 22:15 Total Protein 7.8 g/dL (6.6-8.7) 06/23/22 22:15 Albumin 4.2 g/dL (3.5-5.2) 06/23/22 22:15 Globulin 3.6 g/dL (1.3-4.6) 06/23/22 22:15 EKG Data EKG 1: I personally reviewed and interpreted this EKG as follows: EKG interpretation date: 06/23/22 EKG interpretation time: 21:42 Interpretation: nsr hr [address] or t wave abnoramlities qrs 91 qtc 425 Discharge Plan Discharge Patient Disposition: Home Clinical Impression: Atypical chest pain Condition: Stable Prescriptions: No Action (DME) Dexcom G4 Transmitter Device See Rx Instructions .Route Rx Instructions: As directed Mounjaro 2.5 mg/0.5 mL pen injector 2.5 mg SUBCUT .weekly Qty: 2 0RF Mounjaro 5 mg/0.5 mL pen injector 5 mg SUBCUT .weekly Qty: 4 0RF Rx Instructions: start after completing 1 month of 2.5 mg weekly dose citalopram 40 mg tablet 40 mg PO DAILY Qty: 90 0RF trazodone 50 mg tablet 100 mg PO .HS PRN (Reason: insomnia) Qty: 60 2RF (DME) Diabetic shoes with 3 sets of inserts See Rx Instructions .Route .MEDSUPPLY Qty: 1 0RF Rx Instructions: As directed (DME) ASO to the Left Ankle See Rx Instructions .Route .MEDSUPPLY Qty: 1 0RF Rx Instructions: As directed albuterol sulfate [Ventolin HFA] 90 mcg/actuation HFA aerosol inhaler 2 puff INHALATION Q6H PRN (Reason: Shortness Of Breath Or Wheezing) Qty: 8.5 8RF amitriptyline 50 mg tablet 50 mg PO DAILY Qty: 90 3RF Rx Instructions: TAKE ONE BY MOUTH DAILY budesonide-formoterol 160-4.5 mcg/actuation HFA aerosol inhaler 2 inh inhalation BID Qty: 10.2 8RF Rx Instructions: 340 be if unaffordable. ferrous gluconate 324 mg (37.5 mg iron) tablet 324 mg PO DAILY Qty: 90 3RF omeprazole 40 mg capsule,delayed release(DR/EC) 40 mg PO DAILY Qty: 90 3RF spironolactone 50 mg tablet 50 mg PO DAILY Qty: 90 3RF gabapentin 300 mg capsule 300 mg PO TID Qty: 240 3RF (DME) 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 meter [Accu-Chek Kori Plus Meter] Misc See Rx Instructions .ROUTE .MEDSUPPLY Qty: 1 0RF Rx Instructions: As directed ([facility]) lancets [Accu-Chek Fastclix Lancet Drum] Misc See Rx Instructions .ROUTE .MEDSUPPLY Qty: 100 1RF Rx Instructions: TWICE DAILY (DME) Accu-Chek Kori Plus test strp Strip See Rx Instructions .ROUTE .MEDSUPPLY Qty: 100 1RF Rx Instructions: twice daily (DME) FreeStyle Zackery 2 Sensor Kit See Rx Instructions .ROUTE .MEDSUPPLY Qty: 2 3RF Rx Instructions: monitors blood sugars (DME) FreeStyle Zackery 2 [place] Misc See Rx Instructions .ROUTE .MEDSUPPLY Qty: 1 0RF Rx Instructions: used to read sensers (DME) Omnipod Dash Pods (Gen 4) Cartridge See Rx Instructions .Route Qty: 5 3RF Rx Instructions: As directed insulin aspart U-100 [Novolog U-100 Insulin aspart] 100 unit/mL solution See Rx Instructions SUBCUT .COMPLEX Qty: 140 3RF Rx Instructions: maximum 200 units/day through pump atenolol 25 mg tablet 25 mg PO BID Qty: 180 1RF furosemide 40 mg tablet 40 mg PO DAILY Qty: 90 1RF potassium chloride 20 mEq tablet extended release 20 meq PO DAILY Qty: 90 1RF lisinopril-hydrochlorothiazide 20-25 mg tablet 1 tab PO DAILY Qty: 90 1RF metformin 500 mg tablet extended release 24 hr 500 mg PO BID Qty: 180 3RF Rx Instructions: Take one tablet by mouth twice a day. montelukast [Singulair] 10 mg tablet 10 mg PO DAILY Qty: 90 1RF buspirone 10 mg tablet 20 mg PO TID Qty: 180 2RF acetaminophen 500 mg tablet 500 mg PO Q6H PRN (Reason: pain) Qty: 30 0RF hydrocodone-acetaminophen 5-325 mg tablet 1 tab PO BID PRN (Reason: pain) 3 Days Qty: 5 0RF methocarbamol 750 mg tablet 750 mg PO TID Qty: 10 0RF cyclobenzaprine 10 mg tablet 10 mg PO BID PRN (Reason: muscle spasm) Qty: 20 0RF Discharge Orders: Discharge ED (Routine); Ordered 10/16/22 Ordered By: Kat Yang Referrals: Stevie Brock MD [Physician] - 1-3 days Discharge Diet: Advance as tolerated Discharge Activity: Resume usual activity Patient Instructions: Chest Pain (ED) Coding Level of Care Code ED Morning Show Producer for Chg Fwd Exam Comprehensive
[2022-06-23 22:21] LABS: Basophils # 0.1 10^3/uL (0.0-0.1); Basophils % 0.5 %; Eosinophils # 0.2 10^3/uL (0.0-0.8); Eosinophils % 1.9 %; Hematocrit 45.7 % (37.0-47.0); Hemoglobin 14.6 g/dL (11.5-15.3); Lymphocytes # 2.3 10^3/uL (0.8-4.8); Lymphocytes % 17.7 %; Mean Corpuscular HGB Conc 31.9 g/dL (30.0-36.0); Mean Corpuscular Hemoglobin 28.9 pg (28.0-34.0); Mean Corpuscular Volume 90.3 fl (81-99); Mean Platelet Volume 11.2 fL (7.4-10.4); Monocytes # 0.9 10^3/uL (0.2-0.9); Monocytes % 7.1 %; Neutrophils % 71.8 %; Nucleated Red Blood Cells % 0 %; Platelet Count 289 10^3/cmm (130-400); Red Blood Count 5.06 10^6/uL (4.1-5.3); Red Cell Distribution Width 13.7 % (12.1-15.1); White Blood Count 12.9 10^3/uL (4.0-10.0)
[2022-06-23] MEDS: ondansetron 2 mg/ML SDV 2 mL 4 MG IVP (22:41)
[2022-06-23] MEDS: HYDROmorphone 1 mg/mL INJ 1 mL 0.5 MG IVP (22:41)
[2022-06-23 22:46] LABS: Alanine Aminotransferase 82 U/L (0-33); Albumin Level 4.2 g/dL (3.5-5.2); Alkaline Phosphatase 113 U/L (35-105); Anion Gap 15.6 (5-19); Aspartate Amino Transferase 15 U/L (0-32); Blood Urea Nitrogen 18 mg/dL (6-20); Calcium 9.7 mg/dL (8.5-10.5); Carbon Dioxide 27 mmol/L (22-29); Chloride 96 mmol/L (98-107); Globulin 3.6 g/dL (1.3-4.6); Glomerular Filtration Rate 63.5 mL/min (90-130); Glucose 145 mg/dL (65-115); Osmolality Calculated 282 mOsm/kg (285-295); Potassium 4.6 mmol/L (3.5-5.1); Sodium 134 mmol/L (136-145); Total Bilirubin 0.3 mg/dL (0.15-1.2); Total Protein 7.8 g/dL (6.6-8.7)
[2022-06-23 22:47] LABS: Troponin(5th) Baseline 6 ng/L (0-10)
[2022-06-23 22:58] VITALS: BP 177/88; PULSE 97; O2SAT 91
[2022-06-23] MEDS: HYDROcodone-acetaminophen 5-325 mg Tablet 1 TAB PO (23:24)
[2022-06-23 23:25] VITALS: BP 167/77; PULSE 91; RESP 16; O2SAT 93
== END 2022-06-23 23:29 | disposition home or self-care (01) ==
PROVIDERS: Emergency Provider Emergency Medicine
DX: R07.89 Other chest pain (principal); Z79.84 Long term (current) use of oral hypoglycemic drugs; Z79.4 Long term (current) use of insulin; I10 Essential (primary) hypertension; E78.5 Hyperlipidemia, unspecified; E11.9 Type 2 diabetes mellitus without complications; F17.210 Nicotine dependence, cigarettes, uncomplicated
CPT/HCPCS: 71045; 80053; 84484; 85025; 93005; 96374; 96375; 99285; J1170; J2405

== ENCOUNTER 2022-07-25 19:08 | Emergency (ER) | payer MEDICARE, MEDICAID, SELFPAY ==
[2022-07-25 19:43] VITALS: BMI 63.8
[2022-07-25 19:47] VITALS: BP 133/81; PULSE 96; RESP 16; TEMP 36.6; O2SAT 92
--- NOTE | 2022-07-25 22:36 | ED_ITS ---
HPI - Dental/Oral General: Chief complaint: Dental/Oral Stated complaint: Emma came out from Dental Surgery Time Seen by Provider: 07/25/22 19:11 Source: patient Mode of arrival: ambulatory Limitations: no limitations History of Present Illness: 36-year-old female states that she had her teeth removed today and prepare for dentures she states that she has had pain since that event she felt like a suture had may be a pop she had no bleeding no fevers no trismus rates her pain 8 out of 10 denies any worsening improving factors. Associated symptoms: Denies fever(s) Review of Systems Const: Denies: fever(s), chills, body aches or change in appetite Eyes: Denies: blurry vision or eye discomfort ENMT: Reports: mouth pain Card: Denies: chest pain Resp: Denies: dyspnea GI: Denies: abdominal pain, nausea, vomiting or diarrhea : Denies: dysuria Musc: Denies: neck pain or back pain Skin/Breast: Denies: rash Neuro: Denies: headache(s) Psych: Denies: depression Sunday/Lymph: Denies: easy bruising All/Imm: Denies: urticaria PFSH ED PFSH: Medical History Amenorrhea Asthma Atypical chest pain Bilateral chronic knee pain Bilateral leg edema Dyslipidemia GERD (gastroesophageal reflux disease) 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 (iron deficiency anemia) 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 Migraine Morbid obesity with BMI of 60.0-69.9, adult Muscle spasms of both lower extremities DHEERAJ (obstructive sleep apnea) Pain management contract signed Spinal stenosis, thoracic region Tobacco use disorder Type 2 diabetes mellitus, with long-term current use of insulin Surgical History History of cholecystectomy Family History Father CAD (coronary artery disease) Diabetes Hypertension Seizures Bleeding disorder Hyperlipidemia Lung disease Psychiatric illness Stroke Family/Other Cancer Clotting disorder Hyperlipidemia Lung disease Psychiatric illness Stroke Mother Diabetes Hypertension Hyperlipidemia Lung disease Other Chronic kidney disease (CKD) Denies family history of Dementia Anesthesia complication Social History Smoking and tobacco status: current every day smoker cigarettes Packs smoked per day: 1.5 Years cigarettes smoked: 20 [ Other cigarette details: 2PPD, 30PY onset at 15yo] Quit status (tobacco): considering quitting Second hand smoke exposure: Yes Smoking risk assessment/counseling performed?: No Alcohol intake: former Year of sobriety/quit date alcohol: 2017 Desire information about alcohol rehabilitation?: No Counseling given: No Desire information about substance/drug rehabilitation?: No Counseling given: No Caregiver/support person: Yes Household members: spouse and family Marital status: Current occupational status: disabled Current occupation: disabled History of recent travel: No Special lacey needs: No Female Reproductive History: Date of last menstrual period: 07/09/22 Para: 1 Physical Exam Const: COMMON NORMALS: no acute distress and alert HENMT: OTHER: Recent dental extraction no abscess or bleeding at this time no trismus Eye: COMMON NORMALS: conjunctivae normal CONJUNCTIVA: Yes conjunctivae normal Neck/C-Spine: COMMON NORMALS: supple Chest: COMMONS NORMALS: normal inspection of the chest Resp: COMMON NORMALS: normal respiratory effort Cardio: COMMON NORMALS: regular rate RATE: regular rate GI: INSPECTION: Yes normal to inspection Extremity: COMMON NORMALS: normal to inspection Neuro: SENSORIUM/ORIENTATION: Yes alert Psych: COMMON NORMALS: mental status grossly normal Skin: COMMON NORMALS: no rashes or lesions noted GENERAL SKIN EXAM: no rashes or lesions noted Course Vital Signs: Vital signs: Vital Signs Temperature 97.8 F 07/25/22 19:47 Pulse Rate 96 07/25/22 19:47 Respiratory Rate 16 07/25/22 19:47 Blood Pressure 133/81 07/25/22 19:47 Pulse Oximetry 92 07/25/22 19:47 Oxygen Delivery Me thod 07/25/22 19:47 MDM - Dental/Oral Medical Decision Making 36-year-old female who presented here with pain after having teeth extracted today she had all of her teeth extracted for dentures she is well-appearing here no signs of infection or bleeding she is stable for discharge. Discharge Plan Discharge Patient Disposition: Home Clinical Impression: Pain, dental Condition: Stable Prescriptions: No Action (DME) Dexcom G4 Transmitter Device See Rx Instructions .Route Rx Instructions: As directed Mounjaro 5 mg/0.5 mL pen injector 5 mg SUBCUT .weekly Qty: 4 0RF Rx Instructions: start after completing 1 month of 2.5 mg weekly dose citalopram 40 mg tablet 40 mg PO DAILY Qty: 90 0RF trazodone 50 mg tablet 100 mg PO .HS PRN (Reason: insomnia) Qty: 60 2RF gabapentin 300 mg capsule 300 mg PO BID hydrocodone-acetaminophen 5-325 mg tablet 1 tab PO Q6H albuterol sulfate [Ventolin HFA] 90 mcg/actuation HFA aerosol inhaler 2 puff INHALATION Q6H PRN (Reason: Shortness Of Breath Or Wheezing) Qty: 8.5 8RF ferrous gluconate 324 mg (37.5 mg iron) tablet 324 mg PO .q48 Qty: 90 3RF omeprazole 40 mg capsule,delayed release(DR/EC) 40 mg PO DAILY Qty: 90 3RF budesonide-formoterol [Symbicort] 160-4.5 mcg/actuation HFA aerosol inhaler 2 puff inhalation BID Qty: 10.2 0RF (DME) Diabetic shoes with 3 sets of inserts See Rx Instructions .Route .MEDSUPPLY Qty: 1 0RF Rx Instructions: As directed ([facility] [place]O to the Left Ankle See Rx Instructions .Route .MEDSUPPLY Qty: 1 0RF Rx Instructions: As directed spironolactone 50 mg tablet 50 mg PO DAILY Qty: 90 3RF amitriptyline 25 mg tablet 25 mg PO terbinafine HCl 250 mg tablet 250 mg PO DAILY Qty: 7 0RF Rx Instructions: Take one tablet by mouth once daily for 7 days ciclopirox 0.77 % cream 1 applic topical BID 28 Days Qty: 30 0RF Rx Instructions: Apply to hands twice daily for 4 weeks (DME) 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 meter [Accu-Chek Kori Plus Meter] Misc See Rx Instructions .ROUTE .MEDSUPPLY Qty: 1 0RF Rx Instructions: As directed ([facility] [place] lancets [Accu-Chek Fastclix Lancet Drum] Misc See Rx Instructions .ROUTE .MEDSUPPLY Qty: 100 1RF Rx Instructions: TWICE DAILY (DME) Accu-Chek Kori Plus test strp Strip See Rx Instructions .ROUTE .MEDSUPPLY Qty: 100 1RF Rx Instructions: twice daily (DME) FreeStyle Zackery 2 Sensor Kit See Rx Instructions .ROUTE .MEDSUPPLY Qty: 2 3RF Rx Instructions: monitors blood sugars (DME) FreeStyle Zackery 2 [place] Misc See Rx Instructions .ROUTE .MEDSUPPLY Qty: 1 0RF Rx Instructions: used to read sensers (DME) Omnipod Dash Pods (Gen 4) Cartridge See Rx Instructions .Route Qty: 5 3RF Rx Instructions: As directed insulin aspart U-100 [Novolog U-100 Insulin aspart] 100 unit/mL solution See Rx Instructions SUBCUT .COMPLEX Qty: 140 3RF Rx Instructions: maximum 200 units/day through pump atenolol 25 mg tablet 25 mg PO BID Qty: 180 1RF furosemide 40 mg tablet 40 mg PO DAILY Qty: 90 1RF potassium chloride 20 mEq tablet extended release 20 meq PO DAILY Qty: 90 1RF lisinopril-hydrochlorothiazide 20-25 mg tablet 1 tab PO DAILY Qty: 90 1RF metformin 500 mg tablet extended release 24 hr 500 mg PO BID Qty: 180 3RF Rx Instructions: Take one tablet by mouth twice a day. 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
[2022-07-25 23:03] VITALS: RESP 16; O2SAT 97
[2022-07-25] MEDS: morphine 4 mg/mL SDV 1 mL IM (23:03)
== END 2022-07-25 23:05 | disposition home or self-care (01) ==
PROVIDERS: Emergency Provider Emergency Medicine
DX: K08.89 Other specified disorders of teeth and supporting structures (principal); Z79.84 Long term (current) use of oral hypoglycemic drugs; Z79.4 Long term (current) use of insulin; F17.210 Nicotine dependence, cigarettes, uncomplicated; E78.5 Hyperlipidemia, unspecified; E11.9 Type 2 diabetes mellitus without complications; Z98.818 Other dental procedure status
CPT/HCPCS: 96372; 99284; J2270

== ENCOUNTER 2022-09-17 12:22 | Outpatient (CLI) | payer MEDICARE, MEDICAID, SELFPAY ==
[2022-09-17 13:46] LABS: Alanine Aminotransferase 118 U/L (0-33); Alkaline Phosphatase 167 U/L (35-105); Aspartate Amino Transferase 44 U/L (0-32); Blood Urea Nitrogen 16 mg/dL (6-20); Calcium 9.8 mg/dL (8.5-10.5); Carbon Dioxide 26 mmol/L (22-29); Chloride 99 mmol/L (98-107); Chol HDL Ratio 5.02 mg/dL (0.0-4.40); Cholesterol 216 mg/dL (0-200); Globulin 3.5 g/dL (1.3-4.6); Glomerular Filtration Rate 63.1 mL/min (90-130); Glucose 202 mg/dL (65-115); HDL Cholesterol 43 mg/dL (60-100); LDL Cholesterol Calculated 112 mg/dL (50-129); Osmolality Calculated 291 mOsm/kg (285-295); Sodium 137 mmol/L (136-145); Total Bilirubin 0.5 mg/dL (0.15-1.2); Total Protein 7.5 g/dL (6.6-8.7); Triglycerides 307 mg/dL (0-150)
[2022-09-17 13:50] LABS: Anion Gap 16.7 (5-19); Potassium 4.7 mmol/L (3.5-5.1)
[2022-09-17 13:54] LABS: Creatinine Urine, Random 57 mg/dL (28-217); Microalbum Creatinine Ratio Ur 35 mg/dL (0-20); Microalbumin Random Urine 2 ug/dL (0-20)
[2022-09-17 14:14] LABS: Estmated Average Glucose 154
== END 2022-09-17 12:23 | disposition home or self-care (01) ==
LOC: LAB 12:29
PROVIDERS: PCP Family Medicine; Visit Provider Internal Medicine
DX: E11.40 Type 2 diabetes mellitus with diabetic neuropathy, unspecified (principal); E78.2 Mixed hyperlipidemia; Z79.4 Long term (current) use of insulin; I10 Essential (primary) hypertension; Z79.891 Long term (current) use of opiate analgesic; K76.0 Fatty (change of) liver, not elsewhere classified; Z79.84 Long term (current) use of oral hypoglycemic drugs
CPT/HCPCS: 36415; 80053; 80061; 82044; 83036; 99214

== ENCOUNTER → 2022-09-24 07:52 | Outpatient (BNVA) | payer MEDICARE, MEDICAID, SELFPAY | PROVIDERS: PCP Family Medicine; Visit Provider Podiatrist Foot & Ankle Surgery | DX: E11.9 Type 2 diabetes mellitus without complications (principal); Z79.4 Long term (current) use of insulin; M21.41 Flat foot [pes planus] (acquired), right foot; M21.42 Flat foot [pes planus] (acquired), left foot; L60.0 Ingrowing nail | CPT/HCPCS: 99214 ==

== ENCOUNTER → 2022-10-09 14:51 | Outpatient (BNVA) | payer MEDICARE, MEDICAID, SELFPAY | PROVIDERS: PCP Family Medicine; Visit Provider Family Medicine | DX: G43.909 Migraine, unspecified, not intractable, without status migrainosus (principal); M25.561 Pain in right knee | CPT/HCPCS: 73562 ==

== ENCOUNTER → 2022-10-10 09:23 | Outpatient (BNVA) | payer MEDICARE, MEDICAID, SELFPAY | PROVIDERS: PCP Family Medicine; Visit Provider Podiatrist Foot & Ankle Surgery | DX: L60.0 Ingrowing nail (principal); E11.9 Type 2 diabetes mellitus without complications; Z79.4 Long term (current) use of insulin; Z79.84 Long term (current) use of oral hypoglycemic drugs; M21.41 Flat foot [pes planus] (acquired), right foot; M21.42 Flat foot [pes planus] (acquired), left foot | CPT/HCPCS: 11750 ==

== ENCOUNTER → 2022-10-31 10:25 | Outpatient (BNVA) | payer MEDICARE, MEDICAID, SELFPAY | PROVIDERS: PCP Family Medicine; Visit Provider Podiatrist Foot & Ankle Surgery | DX: E11.9 Type 2 diabetes mellitus without complications (principal); L60.0 Ingrowing nail; Z79.4 Long term (current) use of insulin; M21.41 Flat foot [pes planus] (acquired), right foot; M21.42 Flat foot [pes planus] (acquired), left foot; Z79.84 Long term (current) use of oral hypoglycemic drugs | CPT/HCPCS: 99213 ==

== ENCOUNTER → 2022-11-14 13:19 | Outpatient (BNVA) | payer MEDICARE, MEDICAID, SELFPAY | PROVIDERS: PCP Family Medicine; Referring Provider Family Medicine; Visit Provider Student in an Organized Health Care Education/Training Program | DX: M17.11 Unilateral primary osteoarthritis, right knee (principal); M94.261 Chondromalacia, right knee | CPT/HCPCS: 20610; 99204; J7327 ==

== ENCOUNTER 2022-11-15 18:45 | Emergency (ER) | payer MEDICARE, MEDICAID, SELFPAY ==
--- NOTE | 2022-11-15 18:57 | W.ED.EXTPRO ---
HPI - Extremity Problem General: Chief complaint: Extremity Problem,Nontraumatic Stated complaint: left knee pain post procedure Time Seen by Provider: 11/15/22 18:53 Source: patient Mode of arrival: wheelchair Limitations: no limitations History of Present Illness: Patient is a 37-year-old female who is well-known to the emergency department here for right knee pain. Patient has chronic knee pain. She states her right knee was injected by Dr. Zhong yesterday. She states her chronic pain is worse following that injection. She has not noticed any redness or swelling to the joint. MD Complaint: joint pain Onset (ago): hour(s) Pain Consistency: constant Location: right and knee Radiation: none Relieving factors: immobilization Exacerbating factors: range of motion, weight bearing and walking Associated symptoms: Reports no associated symptoms; Deny fever(s) Context: recent surgery/procedure (joint injection) Review of Systems Const: Denies: fever(s), chills, body aches, fatigue or malaise Musc: Reports: joint pain (R knee); Denies: extremity pain, extremity swelling, joint swelling, joint redness or joint warmth Neuro: Denies: numbness in extremities or sensory changes PFSH ED PFSH: Medical History Amenorrhea Asthma Atypical chest pain Bilateral chronic knee pain Bilateral leg edema Dyslipidemia GERD (gastroesophageal reflux disease) JESSE (iron deficiency anemia) long-term (current) use of opiate analgesic Migraine Morbid obesity with BMI of 60.0-69.9, adult Muscle spasms of both lower extremities DHEERAJ (obstructive sleep apnea) Pain management contract signed Spinal stenosis, thoracic region Tobacco use disorder Type 2 diabetes mellitus, with long-term current use of insulin Surgical History History of cholecystectomy Family History Father CAD (coronary artery disease) Diabetes Hypertension Seizures Bleeding disorder Hyperlipidemia Lung disease Psychiatric illness Stroke Family/Other Cancer Clotting disorder Hyperlipidemia Lung disease Psychiatric illness Stroke Mother Diabetes Hypertension Hyperlipidemia Lung disease Other Chronic kidney disease (CKD) Denies family history of Dementia Anesthesia complication Social History Smoking and tobacco status: current every day smoker cigarettes Packs smoked per day: 1.5 Years cigarettes smoked: 20 [ Other cigarette details: 2PPD, 30PY onset at 15yo] Quit status (tobacco): considering quitting Second hand smoke exposure: Yes Smoking risk assessment/counseling performed?: No Alcohol intake: former Year of sobriety/quit date alcohol: 2017 Desire information about alcohol rehabilitation?: No Counseling given: No Desire information about substance/drug rehabilitation?: No Counseling given: No Caregiver/support person: Yes Household members: spouse and family Marital status: Current occupational status: disabled Current occupation: disabled Special lacey needs: No Female Reproductive History: Para: 1 Physical Exam Const: COMMON NORMALS: no acute distress, patient oriented x3, no limitations and alert GENERAL APPEARANCE: cooperative NUTRITIONAL APPEARANCE: obese morbidly obese (BMI is over 60) Extremity: COMMON NORMALS: capillary refill normal, no joint enlargement, no clubbing, cyanosis or edema, no calf tenderness and no pedal edema GENERAL: Yes normal exam except as noted RIGHT LOWER EXTREMITY: Yes knee joint (pain; no redness/swellng noted) Right knee: Yes palpation (exam difficult secondary to body habitus), Yes ROM (slightly limited secondary to discomfort) and Yes neurovascular exam (normal) Neuro: COMMON NORMALS: patient oriented x3 SENSORIUM/ORIENTATION: Yes alert Course Vital Signs: Vital signs: Vital Signs Temperature 97.5 F L 11/15/22 19:01 Pulse Rate 94 11/15/22 19:12 Respiratory Rate 16 11/15/22 19:12 Blood Pressure 152/86 11/15/22 19:12 Pulse Oximetry 98 11/15/22 19:12 Oxygen Delivery Me thod 11/15/22 19:01 MDM - Extremity (Nontraumatic) Medical Decision Making Patient with a history of chronic knee pain. She had the right knee injected by Dr. Zhong yesterday. She states her pain is worse today. Joint is not red or hot and she maintains range of motion that is not out of proportion to exam. There is nothing emergent on today's visit. She states she is allergic to all anti-inflammatory medications. She states she takes hydrocodone for chronic back pain. She can continue this. I will place an VISH wrap on the knee and have her ice it. She states she was instructed to contact the orthopedic clinic on Friday if pain persists. I think this plan is reasonable. Patient is stable for discharge. Discharge Plan Discharge Patient Disposition: Home Clinical Impression: Knee pain, right Qualifiers: Chronicity: chronic Qualified Code(s): M25.561 - Pain in right knee Condition: Stable Prescriptions: No Action (DME) Dexcom G4 Transmitter Device See Rx Instructions .Route Rx Instructions: As directed Mounjaro 5 mg/0.5 mL pen injector 7.5 mg SUBCUT Q7D Qty: 23 3RF Rx Instructions: 7.5mg weekly for 1 month and then 10mg weekly and continue Mounjaro 10 mg/0.5 mL pen injector 10 mg SUBCUT Q7D Qty: 45 2RF Rx Instructions: after 7.5mg for 1 month gabapentin 300 mg capsule 300 mg PO BID hydrocodone-acetaminophen 5-325 mg tablet 1 tab PO Q6H albuterol sulfate [Ventolin HFA] 90 mcg/actuation HFA aerosol inhaler 2 puff INHALATION Q6H PRN (Reason: Shortness Of Breath Or Wheezing) Qty: 8.5 8RF ferrous gluconate 324 mg (37.5 mg iron) tablet 324 mg PO .q48 Qty: 90 3RF omeprazole 40 mg capsule,delayed release(DR/EC) 40 mg PO DAILY Qty: 90 3RF budesonide-formoterol [Symbicort] 160-4.5 mcg/actuation HFA aerosol inhaler 2 puff inhalation BID Qty: 10.2 0RF buspirone 10 mg tablet 20 mg PO TID Qty: 180 2RF citalopram 40 mg tablet 40 mg PO DAILY Qty: 90 0RF doxepin 50 mg capsule 50 mg PO .HS Qty: 30 2RF silver sulfadiazine [Silvadene] 1 % cream 1 applic topical DAILY Qty: 20 0RF Rx Instructions: apply a 1.5 mm thickness (DME) ASO to the Left Ankle See Rx Instructions .Route .MEDSUPPLY Qty: 1 0RF Rx Instructions: As directed spironolactone 50 mg tablet 50 mg PO DAILY Qty: 90 3RF trazodone 50 mg tablet 100 mg PO .HS PRN (Reason: insomnia) Qty: 60 2RF hydroxyzine HCl 50 mg tablet 50 mg PO QID PRN (Reason: anxiety) Qty: 120 2RF terbinafine HCl 250 mg tablet 250 mg PO DAILY Qty: 7 0RF Rx Instructions: Take one tablet by mouth once daily for 7 days ciclopirox 0.77 % cream 1 applic topical BID 28 Days Qty: 30 0RF Rx Instructions: Apply to hands twice daily for 4 weeks (DME) Diabetic shoes with 3 sets of inserts See Rx Instructions .Route .MEDSUPPLY Qty: 1 0RF Rx Instructions: As directed HOME ketoconazole 2 % cream 1 applic topical BID Qty: 30 3RF Rx Instructions: Apply to affected areas in skin folds X3 weeks then PRN for flares. triamcinolone acetonide 0.1 % ointment 1 applic topical BID Qty: 15 1RF Rx Instructions: Apply to affected area on stomach twice daily, as needed. (DME) 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 meter [Accu-Chek Kori Plus Meter] Misc See Rx Instructions .ROUTE .MEDSUPPLY Qty: 1 0RF Rx Instructions: As directed (DME) lancets [Accu-Chek Fastclix Lancet Drum] Misc See Rx Instructions .ROUTE .MEDSUPPLY Qty: 100 1RF Rx Instructions: TWICE DAILY (DME) Accu-Chek Kori Plus test strp Strip See Rx Instructions .ROUTE .MEDSUPPLY Qty: 100 1RF Rx Instructions: twice daily (DME) FreeStyle Zackery 2 Sensor Kit See Rx Instructions .ROUTE .MEDSUPPLY Qty: 2 3RF Rx Instructions: monitors blood sugars (DME) FreeStyle Zackery 2 [place] Misc See Rx Instructions .ROUTE .MEDSUPPLY Qty: 1 0RF Rx Instructions: used to read sensers insulin aspart U-100 [Novolog U-100 Insulin aspart] 100 unit/mL solution See Rx Instructions SUBCUT .COMPLEX Qty: 140 3RF Rx Instructions: maximum 200 units/day through pump atenolol 25 mg tablet 25 mg PO BID Qty: 180 1RF furosemide 40 mg tablet 40 mg PO DAILY Qty: 90 1RF potassium chloride 20 mEq tablet extended release 20 meq PO DAILY Qty: 90 1RF lisinopril-hydrochlorothiazide 20-25 mg tablet 1 tab PO DAILY Qty: 90 1RF metformin 500 mg tablet extended release 24 hr 500 mg PO BID Qty: 180 3RF Rx Instructions: Take one tablet by mouth twice a day. montelukast [Singulair] 10 mg tablet 10 mg PO DAILY Qty: 90 1RF clobetasol 0.05 % ointment 1 applic topical BID 14 Days Qty: 60 1RF Rx Instructions: Apply to palm & trunk. Use for no more than 2 weeks per month. Not for use on face/skin folds. Mounjaro 7.5 mg/0.5 mL pen injector 7.5 mg SUBCUT Q7D Qty: 23 2RF Rx Instructions: 7.5mg weekly for 1 month and then 10mg weekly and continue insulin aspart U-100 [Novolog FlexPen U-100 Insulin] 100 unit/mL (3 mL) insulin pen 10 unit SUBCUT TID Qty: 27 3RF (DME) pen needle, diabetic [BD Ultra-Fine Micro Pen Needle] 32 gauge x 1/4 needle See Rx Instructions .Route Qty: 300 3RF Rx Instructions: 3 times a day doxycycline hyclate 100 mg capsule 100 mg PO BID 7 Days Qty: 14 0RF venlafaxine 150 mg capsule,extended release 24hr See Rx Instructions .ROUTE .COMPLEX Qty: 30 0RF Dose Instruction: TAKE ONE CAPSULE BY MOUTH EVERY DAY Rx Instructions: TAKE ONE CAPSULE BY MOUTH EVERY DAY sucralfate [Carafate] 1 gram tablet 1 g PO BID Qty: 20 0RF sulfamethoxazole-trimethoprim [Bactrim DS] 800-160 mg tablet 1 tab PO BID 7 Days Qty: 14 0RF sumatriptan succinate [Imitrex] 25 mg tablet 25 mg PO Q2H PRN (Reason: migraine headache) Qty: 30 0RF Rx Instructions: no more than 4 tablets in 24hr acetaminophen 500 mg tablet 500 mg PO Q6H PRN (Reason: pain) Qty: 30 0RF Discharge Orders: Discharge ED (Routine); Ordered 11/15/22 Ordered By: Sissy Luke Referrals: Martínez Lovelace MD [Primary Care Provider] - Coding Level of Care Code ED Slurry Plant Operator for Leonela Escobedo
[2022-11-15 19:01] VITALS: BP 112/76; PULSE 98; RESP 17; TEMP 36.4; O2SAT 94; BMI 60.2
[2022-11-15 19:12] VITALS: BP 152/86; PULSE 94; RESP 16; O2SAT 98
[2022-11-15] MEDS: HYDROcodone-acetaminophen 5-325 mg Tablet 1 TAB PO (19:32)
--- NOTE | 2022-11-15 19:39 | PC.NURSE ---
Patient requested to take pain medication when she gets home, Sissy martinez'd that request
== END 2022-11-15 19:41 | disposition home or self-care (01) ==
PROVIDERS: Emergency Provider Physician Assistant; PCP Family Medicine
DX: M25.561 Pain in right knee (principal); G89.29 Other chronic pain; E11.9 Type 2 diabetes mellitus without complications; E78.5 Hyperlipidemia, unspecified; J45.909 Unspecified asthma, uncomplicated; G47.33 Obstructive sleep apnea (adult) (pediatric); F17.210 Nicotine dependence, cigarettes, uncomplicated; Z79.4 Long term (current) use of insulin; Z79.84 Long term (current) use of oral hypoglycemic drugs
CPT/HCPCS: 99283

== ENCOUNTER → 2022-11-28 08:16 | Outpatient (BNVA) | payer MEDICARE, MEDICAID, SELFPAY | PROVIDERS: PCP Family Medicine; Visit Provider Podiatrist Foot & Ankle Surgery | DX: E11.9 Type 2 diabetes mellitus without complications (principal); L60.0 Ingrowing nail; Z79.4 Long term (current) use of insulin; M21.41 Flat foot [pes planus] (acquired), right foot; M21.42 Flat foot [pes planus] (acquired), left foot; Z79.84 Long term (current) use of oral hypoglycemic drugs | CPT/HCPCS: 11750 ==

== ENCOUNTER → 2022-12-17 14:04 | Outpatient (BNVA) | payer MEDICARE, MEDICAID, SELFPAY | PROVIDERS: PCP Family Medicine; Visit Provider Podiatrist Foot & Ankle Surgery | DX: E11.9 Type 2 diabetes mellitus without complications (principal); L60.0 Ingrowing nail; Z79.4 Long term (current) use of insulin; M21.41 Flat foot [pes planus] (acquired), right foot; M21.42 Flat foot [pes planus] (acquired), left foot; Z98.890 Other specified postprocedural states; Z79.84 Long term (current) use of oral hypoglycemic drugs | CPT/HCPCS: 99213 ==

== ENCOUNTER → 2022-12-19 13:24 | Outpatient (BNVA) | payer MEDICARE, MEDICAID, SELFPAY | PROVIDERS: PCP Family Medicine; Referring Provider Family Medicine; Visit Provider Orthopaedic Surgery | DX: M54.31 Sciatica, right side (principal); M54.32 Sciatica, left side; M54.9 Dorsalgia, unspecified | CPT/HCPCS: 99204 ==

== ENCOUNTER → 2022-12-19 14:19 | Outpatient (BNVA) | payer MEDICARE, MEDICAID, SELFPAY | PROVIDERS: PCP Family Medicine; Referring Provider Family Medicine; Visit Provider Orthopaedic Surgery | DX: M54.6 Pain in thoracic spine; M40.56 Lordosis, unspecified, lumbar region | CPT/HCPCS: 72120 ==

== ENCOUNTER 2022-12-21 18:42 | Emergency (ER) | payer MEDICARE, MEDICAID, SELFPAY ==
--- NOTE | 2022-12-21 | XRR_ITS ---
PROCEDURE INFORMATION: Exam: XR Thoracic Spine Exam date and time: 12/21/2022 8:41 PM Age: 37 years old Clinical indication: Injury or trauma; Fall; Blunt trauma (contusions or hematomas); Additional info: Fall, back pain TECHNIQUE: Imaging protocol: Radiologic exam of the thoracic spine. Views: 3 views. COMPARISON: CR XR thoracic spine 3V* [id number] 12/18/2019 12:11 PM FINDINGS: Bones/joints: No acute fracture. Normal alignment. Soft tissues: Unremarkable. XR/XR thoracic spine 3V* [id number] IMPRESSION: No acute findings.
[2022-12-21 19:54] VITALS: BMI 58.2
[2022-12-21 20:02] VITALS: BP 125/85; PULSE 86; RESP 18; TEMP 36.6; O2SAT 96
--- NOTE | 2022-12-21 20:09 | XRR_ITS ---
PROCEDURE INFORMATION: Exam: XR Lumbosacral Spine Exam date and time: 12/21/2022 8:26 PM Age: 37 years old Clinical indication: Injury or trauma; Fall; Blunt trauma (contusions or hematomas); Additional info: Fall injury with back pain TECHNIQUE: Imaging protocol: Radiologic exam of the lumbosacral spine. Views: 2 or 3 views. COMPARISON: CT abdomen pelvis w con* [id number] 10/03/2021 10:16 PM FINDINGS: Bones/joints: No acute fracture. Normal alignment. Soft tissues: Unremarkable. XR/XR lumbar spine 2-3V* [id number] IMPRESSION: No acute findings.
--- NOTE | 2022-12-21 20:21 | ED_ITS ---
HPI - Back Pain/Injury General: Chief Complaint: Back Pain/Injury Stated Complaint: fall, back pain Time Seen by Provider: 12/21/22 20:08 History of Present Illness: Patient is a 37-year-old female comes to the ED with mid and lower back pain after fall. Injury occurred yesterday. Patient says she was lifting some bags of charcoal and then fell backwards in her lower back and mid back region hit concrete wall. Denies any head trauma or loss of consciousness. She rates her back pain a 9 out of 10. Patient took Tylenol 1 hour before coming to the ED. Denies any other symptoms. Associated symptoms: Deny abdominal pain, chills, dysuria, fatigue, fever(s), hematuria, nausea or vomiting Review of Systems Const: Denies: fever(s), chills or fatigue Eyes: Denies: change in vision or eye discomfort ENMT: Denies: throat pain, odynophagia, nasal discharge or nasal congestion Card: Denies: chest pain, palpitations, edema, swelling of feet/ankles, dyspnea on exertion or orthopnea Resp: Denies: dyspnea, productive cough or non-productive cough GI: Denies: abdominal pain, nausea, vomiting, diarrhea, constipation or hematochezia : Denies: flank pain, dysuria or hematuria Musc: Reports: back pain; Denies: neck pain or extremity swelling Skin/Breast: Denies: rash or new lesions Neuro: Denies: headache(s), numbness in extremities or weakness in extremities PFS ED PFSH: Medical History Amenorrhea Asthma Atypical chest pain Bilateral chronic knee pain Bilateral leg edema Dyslipidemia GERD (gastroesophageal reflux disease) JESSE (iron deficiency anemia) snf (current) use of opiate analgesic Migraine Morbid obesity with BMI of 60.0-69.9, adult Muscle spasms of both lower extremities DHEERAJ (obstructive sleep apnea) Pain management contract signed Spinal stenosis, thoracic region Tobacco use disorder Type 2 diabetes mellitus, with long-term current use of insulin Surgical History History of cholecystectomy Family History Father CAD (coronary artery disease) Diabetes Hypertension Seizures Bleeding disorder Hyperlipidemia Lung disease Psychiatric illness Stroke Family/Other Cancer Clotting disorder Hyperlipidemia Lung disease Psychiatric illness Stroke Mother Diabetes Hypertension Hyperlipidemia Lung disease Other Chronic kidney disease (CKD) Denies family history of Dementia Anesthesia complication Social History Smoking and tobacco status: current every day smoker cigarettes Packs smoked per day: 1.5 Years cigarettes smoked: 20 [ Other cigarette details: 2PPD, 30PY onset at 15yo] Quit status (tobacco): considering quitting Second hand smoke exposure: Yes Smoking risk assessment/counseling performed?: No Alcohol intake: former Year of sobriety/quit date alcohol: 2017 Desire information about alcohol rehabilitation?: No Counseling given: No Desire information about substance/drug rehabilitation?: No Counseling given: No Caregiver/support person: Yes Household members: spouse and family Marital status: Current occupational status: disabled Current occupation: disabled Special lacey needs: No Female Reproductive History: Para: 1 Physical Exam Const: COMMON NORMALS: no acute distress, patient oriented x3 and alert GENERAL APPEARANCE: cooperative HENMT: COMMON NORMALS: normocephalic HEAD & SCALP: normocephalic MOUTH: Normal oral and palatal mucosa present THROAT: posterior oropharynx normal and uvula midline Neck/C-Spine: COMMON NORMALS: supple GENERAL: Yes normal visual inspection Resp: COMMON NORMALS: normal respiratory effort, No retractions, No use of accessory muscles and clear to auscultation bilaterally AUSCULTATION: clear to auscultation bilaterally Cardio: COMMON NORMALS: regular rate, regular rhythm, S1 normal heart sound present, S2 normal heart sound present, No gallops present (Cardio), No clicks present (Cardio), No murmurs present (Cardio) and Peripheral pulses 2+ throughout RATE: regular rate RHYTHM: regular rhythm HEART SOUNDS: S1 normal heart sound present and S2 normal heart sound present PERIPHERAL PULSES: Peripheral pulses 2+ throughout GI: COMMON NORMALS: Normal to inspection, nondistended, normoactive bowel sounds present, Soft to palpation, non-tender and no masses PALPATION: Yes Soft to palpation : COMMON NORMALS: Yes no CVA tenderness BLADDER/KIDNEY EXAM: Yes no CVA tenderness Back/Pelvis: COMMON NORMALS: no CVA tenderness Extremity: COMMON NORMALS: normal to inspection Neuro: COMMON NORMALS: patient oriented x3 SENSORIUM/ORIENTATION: Yes alert GAIT: Yes Normal gait present Skin: GENERAL SKIN EXAM: dry skin Course Vital Signs: Vital signs: Vital Signs Temperature 98 F 12/21/22 20:02 Pulse Rate 86 12/21/22 20:02 Respiratory Rate 16 12/21/22 22:00 Blood Pressure 125/85 12/21/22 20:02 Pulse Oximetry 98 12/21/22 22:00 Oxygen Delivery Me thod Room Air 12/21/22 20:02 MDM - Back Pain/Injury Medical Decision Making Patient is a 37-year-old female comes to the ED with mid and lower back pain after fall. Injury occurred yesterday. Patient says she was lifting some bags of charcoal and then fell backwards in her lower back and mid back region hit concrete wall. Denies any head trauma or loss of consciousness. She rates her back pain a 9 out of 10. Patient took Tylenol 1 hour before coming to the ED. Denies any other symptoms. Vitals are stable. Exam is benign. X-ray of thoracic and lumbar spine showed no acute fractures or findings. Patient was given dose of muscle relaxer and pain med here in the ED. She was stable for discharge home and diagnosed with back pain. Sent home with prescription for muscle relaxer and Tylenol. Follow-up with PCP in the next week for reevaluation. Return to ED precautions given. Patient understood and agreed with plan. Labs Radiology Impressions Lumbar Spine X-Ray 12/21/22 20:09 IMPRESSION: No acute findings. Discharge Plan Discharge Patient Disposition: Home Clinical Impression: Back pain Qualifiers: Back pain location: back pain in unspecified location Chronicity: acute Back pain laterality: unspecified Qualified Code(s): M54.9 - Dorsalgia, unspecified Condition: Stable Prescriptions: New Tylenol Extra Strength 500 mg tablet 500 mg PO Q6H PRN (Reason: pain) Qty: 30 0RF cyclobenzaprine 10 mg tablet 10 mg PO BID PRN (Reason: muscle spasm) Qty: 20 0RF No Action (DME) Dexcom G4 Transmitter Device See Rx Instructions .Route Rx Instructions: As directed Mounjaro 5 mg/0.5 mL pen injector 7.5 mg SUBCUT Q7D Qty: 23 3RF Rx Instructions: 7.5mg weekly for 1 month and then 10mg weekly and continue Mounjaro 10 mg/0.5 mL pen injector 10 mg SUBCUT Q7D Qty: 45 2RF Rx Instructions: after 7.5mg for 1 month gabapentin 300 mg capsule 300 mg PO BID hydrocodone-acetaminophen 5-325 mg tablet 1 tab PO Q6H albuterol sulfate [Ventolin HFA] 90 mcg/actuation HFA aerosol inhaler 2 puff INHALATION Q6H PRN (Reason: Shortness Of Breath Or Wheezing) Qty: 8.5 8RF ferrous gluconate 324 mg (37.5 mg iron) tablet 324 mg PO .q48 Qty: 90 3RF omeprazole 40 mg capsule,delayed release(DR/EC) 40 mg PO DAILY Qty: 90 3RF buspirone 10 mg tablet 20 mg PO TID Qty: 180 2RF citalopram 40 mg tablet 40 mg PO DAILY Qty: 90 0RF doxepin 50 mg capsule 50 mg PO .HS Qty: 30 2RF silver sulfadiazine [Silvadene] 1 % cream 1 applic topical DAILY Qty: 20 0RF Rx Instructions: apply a 1.5 mm thickness (DME) ASO to the Left Ankle See Rx Instructions .Route .MEDSUPPLY Qty: 1 0RF Rx Instructions: As directed spironolactone 50 mg tablet 50 mg PO DAILY Qty: 90 3RF trazodone 50 mg tablet 100 mg PO .HS PRN (Reason: insomnia) Qty: 60 2RF hydroxyzine HCl 50 mg tablet 50 mg PO QID PRN (Reason: anxiety) Qty: 120 2RF ciclopirox 0.77 % cream 1 applic topical BID 28 Days Qty: 30 0RF Rx Instructions: Apply to hands twice daily for 4 weeks (DME) Diabetic shoes with 3 sets of inserts See Rx Instructions .Route .MEDSUPPLY Qty: 1 0RF Rx Instructions: As directed HOME ketoconazole 2 % cream 1 applic topical BID Qty: 30 3RF Rx Instructions: Apply to affected areas in skin folds X3 weeks then PRN for flares. triamcinolone acetonide 0.1 % ointment 1 applic topical BID Qty: 15 1RF Rx Instructions: Apply to affected area on stomach twice daily, as needed. (DME) 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 meter [Accu-Chek Kori Plus Meter] [facility] [place] See Rx Instructions .ROUTE .MEDSUPPLY Qty: 1 0RF Rx Instructions: As directed (DME) lancets [Accu-Chek Fastclix Lancet Drum] Misc See Rx Instructions .ROUTE .MEDSUPPLY Qty: 100 1RF Rx Instructions: TWICE DAILY (DME) Accu-Chek Kori Plus test strp Strip See Rx Instructions .ROUTE .MEDSUPPLY Qty: 100 1RF Rx Instructions: twice daily (DME) FreeStyle Zackery 2 Sensor Kit See Rx Instructions .ROUTE .MEDSUPPLY Qty: 2 3RF Rx Instructions: monitors blood sugars (DME) FreeStyle Zackery 2 [place] Misc See Rx Instructions .ROUTE .MEDSUPPLY Qty: 1 0RF Rx Instructions: used to read sensers insulin aspart U-100 [Novolog U-100 Insulin aspart] 100 unit/mL solution See Rx Instructions SUBCUT .COMPLEX Qty: 140 3RF Rx Instructions: maximum 200 units/day through pump atenolol 25 mg tablet 25 mg PO BID Qty: 180 1RF furosemide 40 mg tablet 40 mg PO DAILY Qty: 90 1RF lisinopril-hydrochlorothiazide 20-25 mg tablet 1 tab PO DAILY Qty: 90 1RF metformin 500 mg tablet extended release 24 hr 500 mg PO BID Qty: 180 3RF Rx Instructions: Take one tablet by mouth twice a day. clobetasol 0.05 % ointment 1 applic topical BID 14 Days Qty: 60 1RF Rx Instructions: Apply to palm & trunk. Use for no more than 2 weeks per month. Not for use on face/skin folds. Mounjaro 7.5 mg/0.5 mL pen injector 7.5 mg SUBCUT Q7D Qty: 23 2RF Rx Instructions: 7.5mg weekly for 1 month and then 10mg weekly and continue insulin aspart U-100 [Novolog FlexPen U-100 Insulin] 100 unit/mL (3 mL) insulin pen 10 unit SUBCUT TID Qty: 27 3RF (DME) pen needle, diabetic [BD Ultra-Fine Micro Pen Needle] 32 gauge x 1/4 needle See Rx Instructions .Route Qty: 300 3RF Rx Instructions: 3 times a day doxycycline hyclate 100 mg capsule 100 mg PO BID 7 Days Qty: 14 0RF sucralfate [Carafate] 1 gram tablet 1 g PO BID Qty: 20 0RF montelukast [Singulair] 10 mg tablet 10 mg PO DAILY Qty: 90 1RF budesonide-formoterol [Symbicort] 160-4.5 mcg/actuation HFA aerosol inhaler 2 puff inhalation BID Qty: 10.2 0RF potassium chloride 20 mEq tablet extended release 20 meq PO DAILY Qty: 90 1RF sumatriptan succinate 25 mg tablet See Rx Instructions .ROUTE .COMPLEX Qty: 30 0RF Dose Instruction: TAKE 1 TABLET BY MOUTH EVERY 2 HOURS NEEDED FOR MIGRAINE HEADACHE. MAX OF FOUR TABLETS PER 24 HOURS Rx Instructions: TAKE 1 TABLET BY MOUTH EVERY 2 HOURS NEEDED FOR MIGRAINE HEADACHE. MAX OF FOUR TABLETS PER 24 HOURS venlafaxine 150 mg capsule,extended release 24hr See Rx Instructions .ROUTE .COMPLEX Qty: 30 0RF Dose Instruction: TAKE ONE CAPSULE BY MOUTH EVERY DAY Rx Instructions: TAKE ONE CAPSULE BY MOUTH EVERY DAY acetaminophen 500 mg tablet 500 mg PO Q6H PRN (Reason: pain) Qty: 30 0RF Discharge Orders: Discharge ED (Routine); Ordered 12/21/22 Ordered By: Quinn Zhong Referrals: Martínez Lovelace MD [Primary Care Provider] - Discharge Diet: Regular Discharge Activity: Increase activity as tolerated Patient Instructions: Back Pain (ED) Activity Restrictions/Additional Instructions: Follow-up with medical provider as directed in the next 5 to 7 days for reevaluation. Take medications as prescribed. Return to the ER or your medical provider if condition worsens. Please read and understand discharge instructions. Thank you for choosing [facility] for your healthcare needs today. Please realize this is an emergency room and that we are providing you with a medical screening exam and this may not be complete and all inclusive of all the testing and or work up that you may need to determine your ailment or severity of your illness. It is very important that you follow up as instructed or that you return to the Emergency Department should you have concerns or if your condition changes or worsens in any way. Coding Level of Care Code ED Digital Archivist for Leonela Escobedo
[2022-12-21] MEDS: HYDROcodone-acetaminophen 7.5-325 mg Tablet 1 TAB PO (20:51)
[2022-12-21 21:49] VITALS: RESP 16; O2SAT 98
[2022-12-21] MEDS: morphine 4 mg/mL SDV 1 mL IM (21:49)
[2022-12-21 22:00] VITALS: RESP 16; O2SAT 98
== END 2022-12-21 22:02 | disposition home or self-care (01) ==
PROVIDERS: Emergency Provider Physician Assistant; PCP Family Medicine
DX: M54.50 Low back pain, unspecified (principal); Z79.4 Long term (current) use of insulin; Z79.84 Long term (current) use of oral hypoglycemic drugs; F17.210 Nicotine dependence, cigarettes, uncomplicated; E78.5 Hyperlipidemia, unspecified; E11.9 Type 2 diabetes mellitus without complications
CPT/HCPCS: 72072; 72100; 96372; 99284; J2270

== ENCOUNTER 2022-12-24 19:44 | Emergency (ER) | payer MEDICARE, MEDICAID, SELFPAY ==
[2022-12-24 20:26] VITALS: BP 144/91; PULSE 92; RESP 20; TEMP 36.4; O2SAT 93; BMI 58.2
--- NOTE | 2022-12-24 20:42 | ED_ITS ---
HPI - Back Pain/Injury General: Chief Complaint: Back Pain/Injury Stated Complaint: back pain Time Seen by Provider: 12/24/22 20:31 History of Present Illness: 37-year-old female comes in today for complaints of low back pain. Patient reports falling last week and hurting her back. Patient is in chronic pain management and receives hydrocodone routinely. Patient has ran out of her medication and is scheduled to see her pain specialist tomorrow. Patient was unable to tolerate her pain and came to the ER for treatment. Patient appears nontoxic. Patient appears in mild to moderate pain. Patient was evaluated earlier in the ER and no acute injury was noted. Review of Systems General: Reports: 10 or more systems reviewed and unremarkable except in HPI and below Musc: Reports: back pain PFSH ED PFSH: Medical History Amenorrhea Asthma Atypical chest pain Bilateral chronic knee pain Bilateral leg edema Dyslipidemia GERD (gastroesophageal reflux disease) JESSE (iron deficiency anemia) shelter (current) use of opiate analgesic Migraine Morbid obesity with BMI of 60.0-69.9, adult Muscle spasms of both lower extremities DHEERAJ (obstructive sleep apnea) Pain management contract signed Spinal stenosis, thoracic region Tobacco use disorder Type 2 diabetes mellitus, with long-term current use of insulin Surgical History History of cholecystectomy Family History Father CAD (coronary artery disease) Diabetes Hypertension Seizures Bleeding disorder Hyperlipidemia Lung disease Psychiatric illness Stroke Family/Other Cancer Clotting disorder Hyperlipidemia Lung disease Psychiatric illness Stroke Mother Diabetes Hypertension Hyperlipidemia Lung disease Other Chronic kidney disease (CKD) Denies family history of Dementia Anesthesia complication Social History Smoking and tobacco status: current every day smoker cigarettes Packs smoked per day: 1.5 Years cigarettes smoked: 20 [ Other cigarette details: 2PPD, 30PY onset at 15yo] Quit status (tobacco): considering quitting Second hand smoke exposure: Yes Smoking risk assessment/counseling performed?: No Alcohol intake: former Year of sobriety/quit date alcohol: 2017 Desire information about alcohol rehabilitation?: No Counseling given: No Desire information about substance/drug rehabilitation?: No Counseling given: No Caregiver/support person: Yes Household members: spouse and family Marital status: Current occupational status: disabled Current occupation: disabled Special lacey needs: No Female Reproductive History: Para: 1 Physical Exam Const: COMMON NORMALS: alert HENMT: COMMON NORMALS: normocephalic HEAD & SCALP: normocephalic Neck/C-Spine: COMMON NORMALS: full ROM Resp: COMMON NORMALS: normal respiratory effort Cardio: COMMON NORMALS: regular rate RATE: regular rate Back/Pelvis: THORACIC SPINE/UPPER BACK: No thoracic spinal tenderness and Yes paraspinal muscle tenderness LUMBAR SPINE/LOWER BACK: Yes lumbar spinal tenderness and Yes paraspinal muscle tenderness Extremity: COMMON NORMALS: normal to inspection Neuro: SENSORIUM/ORIENTATION: Yes alert Skin: COMMON NORMALS: turgor normal GENERAL SKIN EXAM: turgor normal Course Vital Signs: Vital signs: Vital Signs Temperature 97.6 F 12/24/22 20:26 Pulse Rate 92 12/24/22 20:26 Respiratory Rate 20 H 12/24/22 20:26 Blood Pressure 144/91 12/24/22 20:26 Pulse Oximetry 93 12/24/22 20:26 Oxygen Delivery Me thod Room Air 12/24/22 20:26 MDM - Back Pain/Injury Medical Decision Making 37-year-old female comes in today with exacerbation of back pain. Patient rela sarah that her back pain is secondary to a fall last week. On exam patient denies any loss of bowel or bladder control. Patient has tenderness of the paraspinous muscles of the mid and low back. Differential diagnosis includes but not limited to intervertebral disc disease, facet arthritis, lumbar strain, malingering. Patient was given 4 mg of morphine IM. Patient was recommended to follow-up with her pain acute care nurse for refills on her medication. Patient was recommended to follow-up with primary care for further evaluation and treatment if back pain persists. Patient reported understanding and agreed to plan. Discharge Plan Discharge Patient Disposition: Home Clinical Impression: Back pain Qualifiers: Back pain location: thoracic back pain Chronicity: chronic Back pain laterality: bilateral Qualified Code(s): M54.6 - Pain in thoracic spine Condition: Stable Prescriptions: No Action (DME) Dexcom G4 Transmitter Device See Rx Instructions .Route Rx Instructions: As directed Mounjaro 5 mg/0.5 mL pen injector 7.5 mg SUBCUT Q7D Qty: 23 3RF Rx Instructions: 7.5mg weekly for 1 month and then 10mg weekly and continue Mounjaro 10 mg/0.5 mL pen injector 10 mg SUBCUT Q7D Qty: 45 2RF Rx Instructions: after 7.5mg for 1 month gabapentin 300 mg capsule 300 mg PO BID hydrocodone-acetaminophen 5-325 mg tablet 1 tab PO Q6H albuterol sulfate [Ventolin HFA] 90 mcg/actuation HFA aerosol inhaler 2 puff INHALATION Q6H PRN (Reason: Shortness Of Breath Or Wheezing) Qty: 8.5 8RF ferrous gluconate 324 mg (37.5 mg iron) tablet 324 mg PO .q48 Qty: 90 3RF omeprazole 40 mg capsule,delayed release(DR/EC) 40 mg PO DAILY Qty: 90 3RF buspirone 10 mg tablet 20 mg PO TID Qty: 180 2RF citalopram 40 mg tablet 40 mg PO DAILY Qty: 90 0RF silver sulfadiazine [Silvadene] 1 % cream 1 applic topical DAILY Qty: 20 0RF Rx Instructions: apply a 1.5 mm thickness (DME) ASO to the Left Ankle See Rx Instructions .Route .MEDSUPPLY Qty: 1 0RF Rx Instructions: As directed hydroxyzine HCl 50 mg tablet 50 mg PO QID PRN (Reason: anxiety) Qty: 120 2RF ciclopirox 0.77 % cream 1 applic topical BID 28 Days Qty: 30 0RF Rx Instructions: Apply to hands twice daily for 4 weeks (DME) Diabetic shoes with 3 sets of inserts See Rx Instructions .Route .MEDSUPPLY Qty: 1 0RF Rx Instructions: As directed HOME ketoconazole 2 % cream 1 applic topical BID Qty: 30 3RF Rx Instructions: Apply to affected areas in skin folds X3 weeks then PRN for flares. triamcinolone acetonide 0.1 % ointment 1 applic topical BID Qty: 15 1RF Rx Instructions: Apply to affected area on stomach twice daily, as needed. (DME) 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 meter [Accu-Chek Kori Plus Meter] Misc See Rx Instructions .ROUTE .MEDSUPPLY Qty: 1 0RF Rx Instructions: As directed (DME) lancets [Accu-Chek Fastclix Lancet Drum] Misc See Rx Instructions .ROUTE .MEDSUPPLY Qty: 100 1RF Rx Instructions: TWICE DAILY (DME) Accu-Chek Kori Plus test strp Strip See Rx Instructions .ROUTE .MEDSUPPLY Qty: 100 1RF Rx Instructions: twice daily (DME) FreeStyle Zackery 2 Sensor Kit See Rx Instructions .ROUTE .MEDSUPPLY Qty: 2 3RF Rx Instructions: monitors blood sugars (DME) FreeStyle Zackery 2 [place] [facility] [place] See Rx Instructions .ROUTE .MEDSUPPLY Qty: 1 0RF Rx Instructions: used to read sensers insulin aspart U-100 [Novolog U-100 Insulin aspart] 100 unit/mL solution See Rx Instructions SUBCUT .COMPLEX Qty: 140 3RF Rx Instructions: maximum 200 units/day through pump furosemide 40 mg tablet 40 mg PO DAILY Qty: 90 1RF lisinopril-hydrochlorothiazide 20-25 mg tablet 1 tab PO DAILY Qty: 90 1RF metformin 500 mg tablet extended release 24 hr 500 mg PO BID Qty: 180 3RF Rx Instructions: Take one tablet by mouth twice a day. clobetasol 0.05 % ointment 1 applic topical BID 14 Days Qty: 60 1RF Rx Instructions: Apply to palm & trunk. Use for no more than 2 weeks per month. Not for use on face/skin folds. Mounjaro 7.5 mg/0.5 mL pen injector 7.5 mg SUBCUT Q7D Qty: 23 2RF Rx Instructions: 7.5mg weekly for 1 month and then 10mg weekly and continue insulin aspart U-100 [Novolog FlexPen U-100 Insulin] 100 unit/mL (3 mL) insulin pen 10 unit SUBCUT TID Qty: 27 3RF (DME) pen needle, diabetic [BD Ultra-Fine Micro Pen Needle] 32 gauge x 1/4 needle See Rx Instructions .Route Qty: 300 3RF Rx Instructions: 3 times a day doxycycline hyclate 100 mg capsule 100 mg PO BID 7 Days Qty: 14 0RF sucralfate [Carafate] 1 gram tablet 1 g PO BID Qty: 20 0RF montelukast [Singulair] 10 mg tablet 10 mg PO DAILY Qty: 90 1RF potassium chloride 20 mEq tablet extended release 20 meq PO DAILY Qty: 90 1RF sumatriptan succinate 25 mg tablet See Rx Instructions .ROUTE .COMPLEX Qty: 30 0RF Dose Instruction: TAKE 1 TABLET BY MOUTH EVERY 2 HOURS NEEDED FOR MIGRAINE HEADACHE. MAX OF FOUR TABLETS PER 24 HOURS Rx Instructions: TAKE 1 TABLET BY MOUTH EVERY 2 HOURS NEEDED FOR MIGRAINE HEADACHE. MAX OF FOUR TABLETS PER 24 HOURS venlafaxine 150 mg capsule,extended release 24hr See Rx Instructions .ROUTE .COMPLEX Qty: 30 0RF Dose Instruction: TAKE ONE CAPSULE BY MOUTH EVERY DAY Rx Instructions: TAKE ONE CAPSULE BY MOUTH EVERY DAY budesonide-formoterol [Symbicort] 160-4.5 mcg/actuation HFA aerosol inhaler 2 puff inhalation BID Qty: 10.2 2RF atenolol 25 mg tablet 25 mg PO BID Qty: 180 1RF (DME) hinged knee brace See Rx Instructions .Route .MEDSUPPLY Qty: 1 0RF Rx Instructions: As directed spironolactone 50 mg tablet 50 mg PO DAILY Qty: 90 3RF trazodone 50 mg tablet 100 mg PO .HS PRN (Reason: insomnia) Qty: 60 2RF benzonatate 200 mg capsule 200 mg PO BID PRN (Reason: cough) Qty: 30 0RF acetaminophen 500 mg tablet 500 mg PO Q6H PRN (Reason: pain) Qty: 30 0RF Tylenol Extra Strength 500 mg tablet 500 mg PO Q6H PRN (Reason: pain) Qty: 30 0RF cyclobenzaprine 10 mg tablet 10 mg PO BID PRN (Reason: muscle spasm) Qty: 20 0RF Discharge Orders: Discharge ED (Routine); Ordered 12/24/22 Ordered By: Herb Nathan Referrals: Martínez Lovelace MD [Primary Care Provider] - Discharge Diet: Usual diet Discharge Activity: Increase activity as tolerated Patient Instructions: Pain Management Activity Restrictions/Additional Instructions: Continue with routine medications for pain. Follow-up with pain acute care nurse or primary care for further evaluation and treatment. Return to ER for new concerns or worsening symptoms. Coding Level of Care Code ED Dial Refinisher for Leonela Escobedo
[2022-12-24 20:50] VITALS: RESP 18
[2022-12-24] MEDS: morphine 4 mg/mL SDV 1 mL IM (20:50)
== END 2022-12-24 20:53 | disposition home or self-care (01) ==
PROVIDERS: Emergency Provider Nurse Practitioner Family; PCP Family Medicine
DX: G89.29 Other chronic pain (principal); M54.6 Pain in thoracic spine; Z79.4 Long term (current) use of insulin; Z79.84 Long term (current) use of oral hypoglycemic drugs; F17.210 Nicotine dependence, cigarettes, uncomplicated; E78.5 Hyperlipidemia, unspecified; E11.9 Type 2 diabetes mellitus without complications
CPT/HCPCS: 96372; 99284; J2270

== ENCOUNTER 2022-12-25 07:35 | Outpatient (CLI) | payer MEDICARE, MEDICAID, SELFPAY ==
[2022-12-25 09:17] LABS: Estmated Average Glucose 143; Hemoglobin A1C 6.6 % (4.0-6.0)
[2022-12-25 09:33] LABS: Alanine Aminotransferase 92 U/L (0-33); Albumin Level 3.9 g/dL (3.5-5.2); Alkaline Phosphatase 122 U/L (35-105); Aspartate Amino Transferase 20 U/L (0-32); Blood Urea Nitrogen 15 mg/dL (6-20); Calcium 8.9 mg/dL (8.5-10.5); Carbon Dioxide 24 mmol/L (22-29); Chloride 100 mmol/L (98-107); Chol HDL Ratio 5.58 mg/dL (0.0-4.40); Cholesterol 223 mg/dL (0-200); Globulin 3.4 g/dL (1.3-4.6); Glomerular Filtration Rate 71.3 mL/min (90-130); Glucose 155 mg/dL (65-115); HDL Cholesterol 40 mg/dL (60-100); LDL Cholesterol Calculated 136 mg/dL (50-129); Osmolality Calculated 288 mOsm/kg (285-295); Sodium 137 mmol/L (136-145); Total Bilirubin 0.5 mg/dL (0.15-1.2); Total Protein 7.3 g/dL (6.6-8.7); Triglycerides 235 mg/dL (0-150)
== END 2022-12-25 07:36 | disposition home or self-care (01) ==
LOC: LAB 07:37
PROVIDERS: PCP Family Medicine; Visit Provider Internal Medicine
DX: E11.9 Type 2 diabetes mellitus without complications (principal); E78.2 Mixed hyperlipidemia; Z79.4 Long term (current) use of insulin; Z79.891 Long term (current) use of opiate analgesic; I10 Essential (primary) hypertension
CPT/HCPCS: 36415; 80053; 80061; 83036

== ENCOUNTER → 2022-12-31 09:08 | Outpatient (BNVA) | payer MEDICARE, MEDICAID, SELFPAY | PROVIDERS: PCP Family Medicine; Visit Provider Internal Medicine | DX: E11.40 Type 2 diabetes mellitus with diabetic neuropathy, unspecified (principal); K76.0 Fatty (change of) liver, not elsewhere classified; E78.2 Mixed hyperlipidemia; I10 Essential (primary) hypertension; Z79.4 Long term (current) use of insulin; Z79.84 Long term (current) use of oral hypoglycemic drugs | CPT/HCPCS: 99214 ==

== ENCOUNTER 2023-01-07 21:20 | Emergency (ER) | payer MEDICARE, MEDICAID, SELFPAY ==
[2023-01-07 21:31] VITALS: BP 112/77; PULSE 95; RESP 18; TEMP 36.4; O2SAT 95; BMI 57.7
--- NOTE | 2023-01-07 22:32 | W.ED.BACK ---
HPI - Back Pain/Injury General: Chief Complaint: Back Pain/Injury Stated Complaint: back pain Time Seen by Provider: 01/07/23 21:49 History of Present Illness: Patient is a 37-year-old female who comes to the ED with left flank pain. Pain started approximately 4 hours ago. She said it was a sudden onset of intense pain and it is continued to get worse. She describes the pain as a sharp stabbing type pain and it wraps around her left side and into her left upper quadrant of abdomen. She rates the pain currently a 10 out of 10. Patient says she has chronic back pain but states that this pain does not feel anything like her chronic pain. She does state that staying still decreases pain and any body movement worsens pain. Denies any fevers, nausea/vomiting or bowel symptoms. Patient does endorse having the sensation that she needs to urinate but only dribbles out a little bit. Associated symptoms: Deny abdominal pain, chills, dysuria, fatigue, fever(s), hematuria, nausea or vomiting Review of Systems Const: Denies: fever(s), chills or fatigue Eyes: Denies: change in vision or eye discomfort ENMT: Denies: throat pain, odynophagia, nasal discharge or nasal congestion Card: Denies: chest pain, palpitations, edema, swelling of feet/ankles, dyspnea on exertion or orthopnea Resp: Denies: dyspnea, productive cough or non-productive cough GI: Denies: abdominal pain, nausea, vomiting, diarrhea, constipation or hematochezia : Reports: flank pain, difficulty voiding and dribbling; Denies: dysuria or hematuria Musc: Denies: neck pain, back pain or extremity swelling Skin/Breast: Denies: rash or new lesions Neuro: Denies: headache(s), numbness in extremities or weakness in extremities PFS ED PFSH: Medical History Amenorrhea Asthma Atypical chest pain Bilateral chronic knee pain Bilateral leg edema Dyslipidemia GERD (gastroesophageal reflux disease) JESSE (iron deficiency anemia) MCFP (current) use of opiate analgesic Migraine Morbid obesity with BMI of 60.0-69.9, adult Muscle spasms of both lower extremities DHEERAJ (obstructive sleep apnea) Pain management contract signed Spinal stenosis, thoracic region Tobacco use disorder Type 2 diabetes mellitus, with long-term current use of insulin Surgical History History of cholecystectomy Family History Father CAD (coronary artery disease) Diabetes Hypertension Seizures Bleeding disorder Hyperlipidemia Lung disease Psychiatric illness Stroke Family/Other Cancer Clotting disorder Hyperlipidemia Lung disease Psychiatric illness Stroke Mother Diabetes Hypertension Hyperlipidemia Lung disease Other Chronic kidney disease (CKD) Denies family history of Dementia Anesthesia complication Social History Smoking and tobacco status: current every day smoker cigarettes Packs smoked per day: 1.5 Years cigarettes smoked: 20 [ Other cigarette details: 2PPD, 30PY onset at 15yo] Quit status (tobacco): considering quitting Second hand smoke exposure: Yes Smoking risk assessment/counseling performed?: No Alcohol intake: former Year of sobriety/quit date alcohol: 2016 Desire information about alcohol rehabilitation?: No Counseling given: No Substance/Drug Use: former Date of last use: MJ quit in 2021 with new pain management Desire information about substance/drug rehabilitation?: No Counseling given: No Caregiver/support person: Yes Household members: spouse and family Marital status: Current occupational status: disabled Current occupation: disabled Special lacey needs: No Female Reproductive History: Para: 1 Physical Exam Const: COMMON NORMALS: patient oriented x3 and alert GENERAL APPEARANCE: cooperative NUTRITIONAL APPEARANCE: obese morbidly obese HENMT: COMMON NORMALS: normocephalic HEAD & SCALP: normocephalic MOUTH: Normal oral and palatal mucosa present THROAT: posterior oropharynx normal and uvula midline Neck/C-Spine: COMMON NORMALS: supple GENERAL: Yes normal visual inspection Resp: COMMON NORMALS: normal respiratory effort, No retractions, No use of accessory muscles and clear to auscultation bilaterally AUSCULTATION: clear to auscultation bilaterally Cardio: COMMON NORMALS: regular rate, regular rhythm, S1 normal heart sound present, S2 normal heart sound present, No gallops present (Cardio), No clicks present (Cardio), No murmurs present (Cardio) and Peripheral pulses 2+ throughout RATE: regular rate RHYTHM: regular rhythm HEART SOUNDS: S1 normal heart sound present and S2 normal heart sound present PERIPHERAL PULSES: Peripheral pulses 2+ throughout GI: COMMON NORMALS: Normal to inspection, nondistended, normoactive bowel sounds present, Soft to palpation, non-tender and no masses PALPATION: Yes Soft to palpation : BLADDER/KIDNEY EXAM: Yes CVA tenderness Back/Pelvis: GENERAL BACK: Yes CVA tenderness CVA tenderness: left THORACIC SPINE/UPPER BACK: No thoracic spinal tenderness and Yes paraspinal muscle tenderness Thoracic paraspinal muscle tenderness: left Extremity: COMMON NORMALS: normal to inspection Neuro: COMMON NORMALS: patient oriented x3 SENSORIUM/ORIENTATION: Yes alert GAIT: Yes Normal gait present Skin: GENERAL SKIN EXAM: dry skin Course Vital Signs: Vital signs: Vital Signs Temperature 97.6 F 01/07/23 21:31 Pulse Rate 100 01/08/23 00:51 Respiratory Rate 18 01/08/23 00:51 Blood Pressure 116/69 01/08/23 00:51 Pulse Oximetry 92 01/08/23 00:51 Oxygen Delivery Me thod Room Air 01/07/23 22:35 MDM - Back Pain/Injury Medical Decision Making Patient is a 37-year-old female who comes to the ED with left flank pain. Pain started approximately 4 hours ago. She said it was a sudden onset of intense pain and it is continued to get worse. She describes the pain as a sharp stabbing type pain and it wraps around her left side and into her left upper quadrant of abdomen. She rates the pain currently a 10 out of 10. Patient says she has chronic back pain but states that this pain does not feel anything like her chronic pain. She does state that staying still decreases pain and any body movement worsens pain. Denies any fevers, nausea/vomiting or bowel symptoms. Patient does endorse having the sensation that she needs to urinate but only dribbles out a little bit. Vitals stable. Patient appears nontoxic and in no acute distress or pain. Patient has some left thoracic paraspinal muscular tenderness and left CVA tenderness, but rest of exam is benign. Labs are all unremarkable. CT of abdomen pelvis showed no acute findings. Patient was diagnosed with left flank pain which is likely musculoskeletal. She was stable for discharge home and sent home with a prescription for muscle relaxer and told to take [id number] Tylenol to help with pain. Return to ED precautions given. Follow-up with PCP in the next week for reevaluation. Patient understood and agreed with plan. Labs I reviewed the patient's lab results. 01/07/23 22:49 01/07/23 22:49 Radiology Impressions Abdomen/Pelvis CT 01/07/23 22:38 IMPRESSION: 1. No obstructive urolithiasis or bowel obstruction visualized. 2. Large left ovarian mass again seen, unchanged from 10/03/2021. No inflammatory changes. However if symptoms lateralize to this region, torsion would be a possibility. 3. Large and fatty liver. A few other chronic findings above. Overall, stable from 10/03/2021. Laboratory Results WBC 14.1 10^3/uL (4.0-10.0) H 01/07/23 22:49 RBC 4.97 10^6/uL (4.1-5.3) 01/07/23 22:49 Hgb 14.8 g/dL (11.5-15.3) 01/07/23 22:49 Hct 44.3 % (37.0-47.0) 01/07/23 22:49 MCV 89.1 fl (81-99) 01/07/23 22:49 MCH 29.8 pg (28.0-34.0) 01/07/23 22:49 MCHC 33.4 g/dL (30.0-36.0) 01/07/23 22:49 RDW 13.3 % (12.1-15.1) 01/07/23 22:49 Plt Count 272 10^3/cmm (130-400) 01/07/23 22:49 MPV 11.4 fL (7.4-10.4) H 01/07/23 22:49 Neut % (Auto) 69.4 % 01/07/23 22:49 Lymph % (Auto) 21.3 % 01/07/23 22:49 Dunn % (Auto) 7.2 % 01/07/23 22:49 Eos % (Auto) 1.1 % 01/07/23 22:49 Baso % (Auto) 0.4 % 01/07/23 22:49 Neut # (Auto) 9.76 10^3/uL (1.8-7.7) H 01/07/23 22:49 Lymph # (Auto) 3.0 10^3/uL (0.8-4.8) 01/07/23 22:49 Dunn # (Auto) 1.0 10^3/uL (0.2-0.9) H 01/07/23 22:49 Eos # (Auto) 0.2 10^3/uL (0.0-0.8) 01/07/23 22:49 Baso # (Auto) 0.1 10^3/uL (0.0-0.1) 01/07/23 22:49 Nucleated RBC % (auto) 0 % 01/07/23 22:49 Nucleated RBCs # 0.0 /100WBC 01/07/23 22:49 Sodium 134 mmol/L (136-145) L 01/07/23 22:49 Potassium 4.2 mmol/L (3.5-5.1) 01/07/23 22:49 Chloride 97 mmol/L (98-107) L 01/07/23 22:49 Carbon Dioxide 24 mmol/L (22-29) 01/07/23 22:49 Anion Gap 17.2 (5-19) 01/07/23 22:49 BUN 17 mg/dL (6-20) 01/07/23 22:49 Creatinine 1.1 mg/dL (0.5-0.9) H 01/07/23 22:49 GFR Calculation 56.5 mL/min (90-130) L 01/07/23 22:49 Glucose 136 mg/dL (65-115) H 01/07/23 22:49 Calculated Osmolality 282 mOsm/kg (285-295) L 01/07/23 22:49 Calcium 9.2 mg/dL (8.5-10.5) 01/07/23 22:49 Total Bilirubin 0.5 mg/dL (0.15-1.2) 01/07/23 22:49 AST 39 U/L (0-32) H 01/07/23 22:49 ALT 196 U/L (0-33) H 01/07/23 22:49 Alkaline Phosphatase 172 U/L (35-105) H 01/07/23 22:49 Total Protein 7.5 g/dL (6.6-8.7) 01/07/23 22:49 Albumin 4.2 g/dL (3.5-5.2) 01/07/23 22:49 Globulin 3.3 g/dL (1.3-4.6) 01/07/23 22:49 Lipase 37 U/L (13-60) 01/07/23 22:49 HCG, Qual Negative (Negative) 01/07/23 22:49 Discharge Plan Discharge Patient Disposition: Home Clinical Impression: Left flank pain Condition: Stable Prescriptions: New cyclobenzaprine 10 mg tablet 10 mg PO BID PRN (Reason: muscle spasm) Qty: 20 0RF No Action (DME) Dexcom G4 Transmitter Device See Rx Instructions .Route Rx Instructions: As directed Mounjaro 5 mg/0.5 mL pen injector 7.5 mg SUBCUT Q7D Qty: 23 3RF Rx Instructions: 7.5mg weekly for 1 month and then 10mg weekly and continue gabapentin 300 mg capsule 300 mg PO BID hydrocodone-acetaminophen 5-325 mg tablet 1 tab PO Q6H albuterol sulfate [Ventolin HFA] 90 mcg/actuation HFA aerosol inhaler 2 puff INHALATION Q6H PRN (Reason: Shortness Of Breath Or Wheezing) Qty: 8.5 8RF ferrous gluconate 324 mg (37.5 mg iron) tablet 324 mg PO .q48 Qty: 90 3RF omeprazole 40 mg capsule,delayed release(DR/EC) 40 mg PO DAILY Qty: 90 3RF buspirone 10 mg tablet 20 mg PO TID Qty: 180 2RF citalopram 40 mg tablet 40 mg PO DAILY Qty: 90 0RF silver sulfadiazine [Silvadene] 1 % cream 1 applic topical DAILY Qty: 20 0RF Rx Instructions: apply a 1.5 mm thickness (DME) ASO to the Left Ankle See Rx Instructions .Route .MEDSUPPLY Qty: 1 0RF Rx Instructions: As directed hydroxyzine HCl 50 mg tablet 50 mg PO QID PRN (Reason: anxiety) Qty: 120 2RF ciclopirox 0.77 % cream 1 applic topical BID 28 Days Qty: 30 0RF Rx Instructions: Apply to hands twice daily for 4 weeks (DME) Diabetic shoes with 3 sets of inserts See Rx Instructions .Route .MEDSUPPLY Qty: 1 0RF Rx Instructions: As directed HOME ketoconazole 2 % cream 1 applic topical BID Qty: 30 3RF Rx Instructions: Apply to affected areas in skin folds X3 weeks then PRN for flares. triamcinolone acetonide 0.1 % ointment 1 applic topical BID Qty: 15 1RF Rx Instructions: Apply to affected area on stomach twice daily, as needed. Mounjaro 15 mg/0.5 mL pen injector 15 mg SUBCUT .Weekly Qty: 2 0RF (DME) lancets [Accu-Chek Fastclix Lancet Drum] Misc See Rx Instructions .ROUTE .MEDSUPPLY Qty: 100 1RF Rx Instructions: TWICE DAILY (DME) FreeStyle Zackery 2 Sensor Kit See Rx Instructions .ROUTE .MEDSUPPLY Qty: 2 3RF Rx Instructions: monitors blood sugars (DME) FreeStyle Zackery 2 [place] Misc See Rx Instructions .ROUTE .MEDSUPPLY Qty: 1 0RF Rx Instructions: used to read sensers insulin aspart U-100 [Novolog U-100 Insulin aspart] 100 unit/mL solution See Rx Instructions SUBCUT .COMPLEX Qty: 140 3RF Rx Instructions: maximum 200 units/day through pump furosemide 40 mg tablet 40 mg PO DAILY Qty: 90 1RF lisinopril-hydrochlorothiazide 20-25 mg tablet 1 tab PO DAILY Qty: 90 1RF metformin 500 mg tablet extended release 24 hr 500 mg PO BID Qty: 180 3RF Rx Instructions: Take one tablet by mouth twice a day. clobetasol 0.05 % ointment 1 applic topical BID 14 Days Qty: 60 1RF Rx Instructions: Apply to palm & trunk. Use for no more than 2 weeks per month. Not for use on face/skin folds. Mounjaro 7.5 mg/0.5 mL pen injector 7.5 mg SUBCUT Q7D Qty: 23 2RF Rx Instructions: 7.5mg weekly for 1 month and then 10mg weekly and continue insulin aspart U-100 [Novolog FlexPen U-100 Insulin] 100 unit/mL (3 mL) insulin pen 10 unit SUBCUT TID Qty: 27 3RF (DME) pen needle, diabetic [BD Ultra-Fine Micro Pen Needle] 32 gauge x 1/4 needle See Rx Instructions .Route Qty: 300 3RF Rx Instructions: 3 times a day doxycycline hyclate 100 mg capsule 100 mg PO BID 7 Days Qty: 14 0RF sucralfate [Carafate] 1 gram tablet 1 g PO BID Qty: 20 0RF montelukast [Singulair] 10 mg tablet 10 mg PO DAILY Qty: 90 1RF potassium chloride 20 mEq tablet extended release 20 meq PO DAILY Qty: 90 1RF sumatriptan succinate 25 mg tablet See Rx Instructions .ROUTE .COMPLEX Qty: 30 0RF Dose Instruction: TAKE 1 TABLET BY MOUTH EVERY 2 HOURS NEEDED FOR MIGRAINE HEADACHE. MAX OF FOUR TABLETS PER 24 HOURS Rx Instructions: TAKE 1 TABLET BY MOUTH EVERY 2 HOURS NEEDED FOR MIGRAINE HEADACHE. MAX OF FOUR TABLETS PER 24 HOURS venlafaxine 150 mg capsule,extended release 24hr See Rx Instructions .ROUTE .COMPLEX Qty: 30 0RF Dose Instruction: TAKE ONE CAPSULE BY MOUTH EVERY DAY Rx Instructions: TAKE ONE CAPSULE BY MOUTH EVERY DAY budesonide-formoterol [Symbicort] 160-4.5 mcg/actuation HFA aerosol inhaler 2 puff inhalation BID Qty: 10.2 2RF atenolol 25 mg tablet 25 mg PO BID Qty: 180 1RF spironolactone 50 mg tablet 50 mg PO DAILY Qty: 90 3RF trazodone 50 mg tablet 100 mg PO .HS PRN (Reason: insomnia) Qty: 60 2RF benzonatate 200 mg capsule 200 mg PO BID PRN (Reason: cough) Qty: 30 0RF (DME) hinged knee brace See Rx Instructions .Route .MEDSUPPLY Qty: 1 0RF Rx Instructions: As directed Mounjaro 10 mg/0.5 mL pen injector 10 mg SUBCUT Q7D Qty: 45 0RF Rx Instructions: after 7.5mg for 1 month (DME) 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 meter [Accu-Chek Guide Glucose Meter] Misc See Rx Instructions .Route Qty: 1 0RF Rx Instructions: As directed (DME) Accu-Chek Guide test strips Strip See Rx Instructions .Route Qty: 100 1RF Rx Instructions: Check up 2 times daily (DME) lancets [Accu-Chek Softclix Lancets] Misc See Rx Instructions .Route Qty: 100 0RF Rx Instructions: As directed acetaminophen 500 mg tablet 500 mg PO Q6H PRN (Reason: pain) Qty: 30 0RF Tylenol Extra Strength 500 mg tablet 500 mg PO Q6H PRN (Reason: pain) Qty: 30 0RF cyclobenzaprine 10 mg tablet 10 mg PO BID PRN (Reason: muscle spasm) Qty: 20 0RF Discharge Orders: Discharge ED (Routine); Ordered 01/08/23 Ordered By: Quinn Zhong Referrals: Martínez Lovelace MD [Primary Care Provider] - Discharge Diet: Regular Discharge Activity: Increase activity as tolerated Patient Instructions: Flank Pain (ED) Activity Restrictions/Additional Instructions: Follow-up with medical provider as directed in the next 7 to 10 days for reevaluation. Take medications as prescribed. Return to the ER or your medical provider if condition worsens. Please read and understand discharge instructions. Thank you for choosing [facility] for your healthcare needs today. Please realize this is an emergency room and that we are providing you with a medical screening exam and this may not be complete and all inclusive of all the testing and or work up that you may need to determine your ailment or severity of your illness. It is very important that you follow up as instructed or that you return to the Emergency Department should you have concerns or if your condition changes or worsens in any way. Coding Level of Care Code ED Padded Products Inspector Trimmer for Leonela Escobedo
[2023-01-07 22:35] VITALS: BP 113/89; PULSE 97; RESP 18; O2SAT 95
--- NOTE | 2023-01-07 22:38 | CTR_ITS ---
PROCEDURE INFORMATION: Exam: CT Abdomen And Pelvis Without Contrast Exam date and time: 01/07/2023 11:21 PM Age: 37 years old Clinical indication: Abdominal pain; Prior surgery; Surgery type: Gb; Patient HX: C/O left flank pain TECHNIQUE: Imaging protocol: Computed tomography of the abdomen and pelvis without contrast. Radiation optimization: All CT scans at this facility use at least one of these dose optimization techniques: automated exposure control; mA and/or kV adjustment per patient size (includes targeted exams where dose is matched to clinical indication); or iterative reconstruction. REPORTING DATA: Count of CT and Cardiac NM exams in prior 12 months: This patient has received [address] and 0 known cardiac nuclear medicine studies in the 12 months prior to the current study. COMPARISON: CT abdomen pelvis w con* [id number] 10/03/2021 10:16 PM RADIATION DOSE METRICS: Total DLP (mGy-cm): 1235.73 FINDINGS: Lungs: The visualized lung bases are clear. Liver: Liver is large and hypodense. Gallbladder and bile ducts: Absent gallbladder. Pancreas: Unremarkable with no suspicious mass. No ductal dilation. Spleen: The spleen is not enlarged. No suspicious mass is noted. Adrenal glands: Normal. No mass. Kidneys and ureters: No solid renal mass or hydronephrosis. Stomach and bowel: No small bowel obstruction or free air. No overt mucosal thickening. Appendix: No evidence of appendicitis. Intraperitoneal space: Unremarkable. No free air. No suspicious fluid collection. Vasculature: No AAA or acute vascular lesion identified. Lymph nodes: No enlarged lymph nodes. Urinary bladder: Unremarkable as visualized. Reproductive: Large left ovarian/adnexal mass is again seen. Today it measures up to 85 x 82 mm. It previously measured about the same. 2 cm right ovarian cyst. Bones/joints: No acute fracture. Soft tissues: No acute or suspicious finding noted. CT/CT kidney stone [id number] IMPRESSION: 1. No obstructive urolithiasis or bowel obstruction visualized. 2. Large left ovarian mass again seen, unchanged from 10/03/2021. No inflammatory changes. However if symptoms lateralize to this region, torsion would be a possibility. 3. Large and fatty liver. A few other chronic findings above. Overall, stable from 10/03/2021.
[2023-01-07 22:52] VITALS: RESP 18
[2023-01-07] MEDS: ondansetron 2 mg/ML SDV 2 mL 4 MG IVP (22:52)
[2023-01-07] MEDS: morphine 4 mg/mL SDV 1 mL IVP (22:52)
[2023-01-07 22:58] LABS: Basophils # 0.1 10^3/uL (0.0-0.1); Basophils % 0.4 %; Eosinophils # 0.2 10^3/uL (0.0-0.8); Eosinophils % 1.1 %; Hematocrit 44.3 % (37.0-47.0); Hemoglobin 14.8 g/dL (11.5-15.3); Lymphocytes % 21.3 %; Mean Corpuscular HGB Conc 33.4 g/dL (30.0-36.0); Mean Corpuscular Hemoglobin 29.8 pg (28.0-34.0); Mean Corpuscular Volume 89.1 fl (81-99); Mean Platelet Volume 11.4 fL (7.4-10.4); Monocytes % 7.2 %; Neutrophils # 9.76 10^3/uL (1.8-7.7); Neutrophils % 69.4 %; Nucleated Red Blood Cells % 0 %; Platelet Count 272 10^3/cmm (130-400); Red Blood Count 4.97 10^6/uL (4.1-5.3); Red Cell Distribution Width 13.3 % (12.1-15.1); White Blood Count 14.1 10^3/uL (4.0-10.0)
[2023-01-07 23:00] VITALS: PULSE 96; RESP 18; O2SAT 90
[2023-01-07 23:15] LABS: Alanine Aminotransferase 196 U/L (0-33); Albumin Level 4.2 g/dL (3.5-5.2); Alkaline Phosphatase 172 U/L (35-105); Anion Gap 17.2 (5-19); Aspartate Amino Transferase 39 U/L (0-32); Blood Urea Nitrogen 17 mg/dL (6-20); Calcium 9.2 mg/dL (8.5-10.5); Carbon Dioxide 24 mmol/L (22-29); Chloride 97 mmol/L (98-107); Globulin 3.3 g/dL (1.3-4.6); Glomerular Filtration Rate 56.5 mL/min (90-130); Glucose 136 mg/dL (65-115); Lipase 37 U/L (13-60); Osmolality Calculated 282 mOsm/kg (285-295); Potassium 4.2 mmol/L (3.5-5.1); Sodium 134 mmol/L (136-145); Total Bilirubin 0.5 mg/dL (0.15-1.2); Total Protein 7.5 g/dL (6.6-8.7)
[2023-01-07 23:16] LABS: HCG, Serum Qual Negative (Negative)
[2023-01-07 23:30] VITALS: BP 123/91; PULSE 99; RESP 18; O2SAT 91
[2023-01-08 00:36] VITALS: RESP 18
[2023-01-08] MEDS: morphine 4 mg/mL SDV 1 mL IVP (00:36)
[2023-01-08 00:51] VITALS: BP 116/69; PULSE 100; RESP 18; O2SAT 92
== END 2023-01-08 00:53 | disposition home or self-care (01) ==
PROVIDERS: Emergency Provider Physician Assistant; PCP Family Medicine
DX: R10.9 Unspecified abdominal pain (principal); Z79.4 Long term (current) use of insulin; Z79.84 Long term (current) use of oral hypoglycemic drugs; F17.210 Nicotine dependence, cigarettes, uncomplicated; E78.5 Hyperlipidemia, unspecified; E11.9 Type 2 diabetes mellitus without complications; R10.12 Left upper quadrant pain; L20.89 Other atopic dermatitis; L72.11 Pilar cyst
CPT/HCPCS: 74176; 80053; 83690; 84703; 85025; 96374; 96375; 96376; 99214; 99285; J2270; J2405

== ENCOUNTER 2023-01-10 06:19 | Outpatient (CLI) | payer MEDICARE, MEDICAID, SELFPAY ==
--- NOTE | 2023-01-10 07:15 | MR_ITS ---
WS: [id number] MRI LUMBAR SPINE NONCONTRAST TECHNIQUE: Sagittal T1, T2 and STIR imaging. Axial T1 and T2 imaging. CLINICAL INFORMATION: back pain COMPARISON: None. FINDINGS: Mild lumbar curve. No acute compression. No high-grade central canal stenosis. Some images degraded b y motion. L1-L2: Mild facet arthropathy. Spinal canal and foramen are patent. L2-L3: No significant disc bulging. Moderate facet arthropathy. Spinal canal and foramen are patent. L3-L4: No significant disc bulging. Moderate facet arthropathy. Mild RIGHT greater than LEFT foramina l narrowing. L4-L5: Mild annular bulging. Mild facet arthropathy. Spinal canal and foramen are patent. L5-S1: No significant disc bulging. Mild facet arthropathy. Spinal canal and foramen are patent. Visualized pelvic bony structures: Normal. Paravertebral soft tissues: Normal. Mild central canal stenosis visualized bony skeleton imaging T10-T11 with prominent facet arthropathy and ligamentum flavum hypertrophy. MR/MR lumbar spine wo con* [id number] IMPRESSION: 1. Mild lumbar curve. No acute compression. No high-grade central canal stenos is. 2. Moderate facet arthropathy L2-L3, L3-L4, L4-L5 and L5-S1. 3. Mild RIGHT greater than LEFT L3-L4 foraminal narrowing. 4. Mild central canal stenosis visualized in the picker machine operator imaging T10-T11 with pr ominent facet arthropathy and ligamentum flavum hypertrophy. This can be furthe r evaluated with thoracic spine MRI. 5. No other acute findings.
== END 2023-01-10 06:20 | disposition home or self-care (01) ==
LOC: RAD 06:22
PROVIDERS: PCP Family Medicine; Visit Provider Orthopaedic Surgery
DX: M54.9 Dorsalgia, unspecified (principal); M48.04 Spinal stenosis, thoracic region
CPT/HCPCS: 72148; 99204

== ENCOUNTER → 2023-01-16 12:56 | Outpatient (BNVA) | payer MEDICARE, MEDICAID, SELFPAY | PROVIDERS: PCP Family Medicine; Visit Provider Orthopaedic Surgery | DX: M48.04 Spinal stenosis, thoracic region (principal) | CPT/HCPCS: 99214 ==

== ENCOUNTER 2023-01-30 14:47 | Outpatient (CLI) | payer MEDICARE, MEDICAID, SELFPAY ==
--- NOTE | 2023-01-30 16:00 | MR_ITS ---
WS: [id number] MRI THORACIC SPINE without contrast. HISTORY: Chronic back pain. COMPARISON: 04/15/2022, 02/08/2020 and 01/21/2020 TECHNIQUE: Multiplanar sequences are performed in sagittal and axial planes. This MRI is significantly degraded likely by body habitus. Very poor definition of the osseous and so ft tissue structures. Mild scoliosis. No fractures or marrow edema. Mild disc space narrowing and kemal iccation. Focal area of increased T2 signal in the thoracic cord at the T10-11 level extends over rosa maria gth of 7.2 mm. Progressed since 2019. Probably due to nerve myelomalacia as there is stenosis also. P reviously described short segment myelomalacia at the T8-9 level is not as well appreciated today. T1-2: Normal. T2-3: Normal. T3-4: Normal. T4-5: Normal. T5-6: Normal. T6-7: Normal. T7-8: Tiny central disc protrusion. No stenosis. T8-9: Moderate RIGHT paracentral disc protrusion contacts and deforms the RIGHT lateral thecal sac. T9-10: Bilateral facet joint arthritis encroaching into the thecal sac, greatest on the RIGHT. Mild RIGHT subarticular recess stenosis. T10-11: Annular disc bulge with ligamentum flavum and facet arthritis. Moderate central with mild bi lateral foraminal stenosis. This is the level of myelomalacia and increased signal in the thoracic co rd. This stenosis and myelomalacia are new since 04/15/2022. T11-12: Very shallow central disc protrusion. Paravertebral soft tissues are normal. MR/MR thoracic spin wo con* [id number] IMPRESSION: 1. Moderate central with mild bilateral foraminal stenosis at T10-11 with face t joint arthritis contributing to the stenosis. 2. 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 This is the location of the central stenosis. 3. Moderate RIGHT paracentral disc protrusion at T8-9 similar to the prior irwin dy. 4. Bilateral facet joint arthritis at T9-10. Mild RIGHT subarticular recess st enosis.
== END 2023-01-30 14:48 | disposition home or self-care (01) ==
LOC: RAD 14:48
PROVIDERS: PCP Family Medicine; Visit Provider Orthopaedic Surgery
DX: M48.04 Spinal stenosis, thoracic region (principal); M47.814 Spondylosis without myelopathy or radiculopathy, thoracic region; M54.6 Pain in thoracic spine; R93.89 Abnormal findings on diagnostic imaging of other specified body structures
CPT/HCPCS: 72146

== ENCOUNTER 2023-02-07 06:42 | Day surgery (SDC) | payer MEDICARE, MEDICAID, SELFPAY ==
--- NOTE | 2023-01-31 09:12 | PC.NURSE ---
No EKG needed per Dr. Kiser
--- NOTE | 2023-01-31 14:38 | P.ANESASSM_ITS ---
Pre-Anesthetic Assessment Height/Weight: Height 1.6 m Weight 146.51 kg Operation Date: 02/07/23 10:20 Proposed Procedures p open T10/11 decompression : 79552,M48.04(Not Applicable) - Steve Rios DO Familial anesthetic complications: none Was Beta Sarah taken within 24 hours: Yes Was Clonidine taken within 24 hours: N/A Social Tobacco and No alcohol Exam alert, oriented x 3 and regular rate & rhythm Airway Submandibular: within normal limits Cervical ROM: within normal limits Mallampati: Class II Dentition: false Pulmonary Chronic Obstructive Pulmonary Disease and Sleep Apnea CV/HEM Anemia and Hypertension GI Gastroesophageal Reflux Disease Metabolic Diabetes Mellitus, Morbid Obesity and Thyroid Disease Musc/skel Lower Back Pain and Osteoarthritis/DJD Neuropsych Anxiety, Depression and Headache Anesthetic Plan ASA status: 3 Anesthesia: General Medications/Allergies Home Medications Medication Instructions Recorded Confirmed Last Taken Type lancets (Accu-Chek Fastclix Lancet #100 ea 04/18/20 01/16/23 Unknown Rx Drum) flash glucose scanning reader #1 ea 11/15/20 01/16/23 Unknown Rx (FreeStyle Zackery 2 [place]) flash glucose sensor (FreeStyle #2 ea 11/15/20 01/16/23 Unknown Rx Zackery 2 Sensor kit) 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 transmitter (Dexcom 12/17/21 01/16/23 Unknown History G4 Transmitter device) ASO to the Left Ankle #1 ea 05/16/22 01/16/23 Unknown Rx furosemide 40 mg tablet 40 mg PO DAILY #90 tabs 05/29/22 01/31/23 01/31/23 Rx lisinopril 20 1 tab PO DAILY #90 tabs 05/29/22 01/31/23 01/31/23 Rx mg-hydrochlorothiazide 25 mg tablet metformin 500 mg tablet,extended 500 mg PO BID #180 tabs 06/03/22 01/31/23 01/31/23 Rx release 24 hr albuterol sulfate 90 mcg/actuation 2 puff inhalation Q6H PRN 07/12/22 01/31/23 01/31/23 Rx aerosol inhaler (Ventolin HFA) Shortness Of Breath Or Wheezing #8.5 grams ferrous gluconate 324 mg (37.5 mg 324 mg PO .q48 #90 tabs 07/12/22 01/31/23 01/31/23 Rx iron) tablet gabapentin 300 mg capsule 300 mg PO BID 07/12/22 01/31/23 01/31/23 History hydrocodone 5 mg-acetaminophen 325 1 tab PO Q6H pain 07/12/22 01/31/23 01/31/23 History mg tablet ciclopirox 0.77 % topical cream 1 applic topical BID 4 weeks #30 07/15/22 01/31/23 01/31/23 Rx grams clobetasol 0.05 % topical ointment 1 applic topical BID 2 weeks #60 09/11/22 01/31/23 01/31/23 Rx grams Diabetic shoes with 3 sets of #1 ea 09/25/22 01/16/23 Unknown Rx inserts insulin aspart U-100 100 unit/mL 10 unit (0.1 mL) SUBCUT TID #27 mL 09/25/22 01/31/23 Unknown Rx (3 mL) subcutaneous pen (Novolog FlexPen U-100 Insulin aspart) pen needle, diabetic 32 gauge x #300 ea 09/25/22 01/16/23 Unknown Rx 1/4 (BD Ultra-Fine Micro Pen Needle) buspirone 10 mg tablet 20 mg PO TID #180 tabs 10/25/22 01/31/23 01/31/23 Rx citalopram 40 mg tablet 40 mg PO DAILY #90 tabs 10/25/22 01/31/23 01/31/23 Rx montelukast 10 mg tablet 10 mg PO DAILY #90 tabs 11/20/22 01/31/23 01/31/23 Rx (Singulair) potassium chloride 20 mEq 20 meq PO DAILY #90 tabs 11/29/22 01/31/23 01/31/23 Rx tablet,extended release sumatriptan succinate 25 mg tablet See Rx Instructions .Route 12/13/22 01/31/23 01/10/23 Rx .COMPLEX #30 ea atenolol 25 mg tablet 25 mg PO BID #180 tabs 12/23/22 01/31/23 01/31/23 Rx budesonide-formoterol HFA 160 2 puff inhalation BID COPD #10.2 12/23/22 01/31/23 01/31/23 Rx mcg-4.5 mcg/actuation aerosol grams inhaler (Symbicort) spironolactone 50 mg tablet 50 mg PO DAILY #90 tabs 12/24/22 01/31/23 01/31/23 Rx trazodone 50 mg tablet 100 mg PO .HS PRN insomnia #60 tabs 12/24/22 01/31/23 01/30/23 Rx hinged knee brace #1 ea 12/26/22 01/16/23 Unknown Rx blood sugar diagnostic (Accu-Chek #100 ea 01/02/23 01/16/23 Unknown Rx Guide test strips) 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 meter (Accu-Chek #1 ea 01/02/23 01/16/23 Unknown Rx Guide Glucose Meter) lancets (Accu-Chek Softclix #100 ea 01/02/23 01/16/23 Unknown Rx Lancets) venlafaxine 150 mg See Rx Instructions .Route 01/20/23 01/31/23 01/31/23 Rx capsule,extended release 24 hr .COMPLEX #30 caps omeprazole 40 mg capsule,delayed 40 mg PO BID PRN acid reflux #180 01/21/23 01/31/23 01/31/23 Rx release caps tirzepatide 15 mg/0.5 mL See Rx Instructions .Route 01/27/23 01/31/23 01/26/23 Rx subcutaneous pen injector .COMPLEX #2 mL (Mounjaro) Allergies Allergy/AdvReac Type Severity Reaction Status Date / Time ibuprofen Allergy Mild ALGY-Swell Verified 01/31/23 08:42 Lip/Tongue/Throat diclofenac Allergy ADR-Vomitin Verified 01/31/23 08:42 g ketorolac [From Toradol] Allergy sick Verified 01/31/23 08:42 [facility] Anesthesia Medical History (Updated 01/24/23 @ 09:35 by Sean Chatman NP) Amenorrhea Asthma Atypical chest pain Bilateral chronic knee pain Bilateral leg edema Chronic anemia Dyslipidemia GERD (gastroesophageal reflux disease) JESSE (iron deficiency anemia) USP (current) use of opiate analgesic Migraine Morbid obesity with BMI of 60.0-69.9, adult Muscle spasms of both lower extremities DHEERAJ (obstructive sleep apnea) Pain management contract signed Spinal stenosis, thoracic region Tobacco use disorder Type 2 diabetes mellitus, with long-term current use of insulin Surgical History History of cholecystectomy Family History Father CAD (coronary artery disease) Diabetes Hypertension Seizures Bleeding disorder Hyperlipidemia Lung disease Psychiatric illness Stroke Family/Other Cancer Clotting disorder Hyperlipidemia Lung disease Psychiatric illness Stroke Mother Diabetes Hypertension Hyperlipidemia Lung disease Other Chronic kidney disease (CKD) Denies family history of Dementia Anesthesia complication Social History Smoking and tobacco status: current every day smoker cigarettes Packs smoked per day: 1.5 Years cigarettes smoked: 20 [ Other cigarette details: 2PPD, 30PY onset at 15yo] Quit status (tobacco): considering quitting Second hand smoke exposure: Yes Smoking risk assessment/counseling performed?: No Alcohol intake: former Year of sobriety/quit date alcohol: 2016 Desire information about alcohol rehabilitation?: No Counseling given: No Substance/Drug Use: former Date of last use: MJ quit in 2021 with new pain ma nagement Desire information about substance/drug rehabilitation?: No Counseling given: No Caregiver/support person: Yes Household members: spouse and family Marital status: Current occupational status: disabled Current occupation: disabled Special lacey needs: No Female Reproductive History Date of last menstrual period: 01/24/23 Para: 1 Data Anesthesia Cardiac Studies: Sestamibi Stress Test (Cardiology) 01/28
[2023-02-07] VITALS (14 sets, daily range): BP systolic 112–154; BP diastolic 72–99; PULSE 85–100; RESP 15–19; TEMP 36.1–36.4; O2SAT 92–97
--- NOTE | 2023-02-07 | XR_ITS ---
WS: [id number] Exam: XR lumbar spine 1V [id number] Date/Time of Exam: 02/07/2023 12:00 AM Reason For Exam: T10-11 decompression Single AP C-arm image of the lower cervical spine is presented. The image was obtained for operative localization.
[2023-02-07 08:22] LABS: Glucose Point of Care 147 mg/dL (70-110)
[2023-02-07] MEDS: sodium chloride 0.9% 1,000 ML 30 ML IV (08:22)
--- NOTE | 2023-02-07 09:42 | W.PM.OPSUD ---
Surgery/Procedure H&P Update DATE OF PROCEDURE: February 07, 2023 DATE H&P PERFORMED: 01/16/23 H&P UPDATE INFORMATION: I have reviewed H&P completed within last 30 days, I have examined patient prior to procedure and No changes to prior documentation PREOP DIAGNOSIS: T10-11 Stenosis PLANNED PROCEDURE: Operation Date: 02/07/23 10:10 Proposed Procedures p open T10/11 decompression : 81446,M48.04(Not Applicable) - Steve Rios DO
[2023-02-07] MEDS: fentaNYL 50 mcg/mL INJ 2mL IVP ×2 (09:50→11:48)
[2023-02-07] MEDS: ceFAZolin 2,000 MG in sodium chloride 0.9% (plus) 50 ML 100 MG IV (10:00)
[2023-02-07] MEDS: lidocaine-epi 1% 20 mL INJ INJECTION (10:54)
--- NOTE | 2023-02-07 11:29 | PM.OP ---
Operative Report Date of procedure: February 07, 2023 Pre-op diagnosis: Preop Diagnosis T10-11 Stenosis Post-op diagnosis: same Procedure done: T10/11 laminectomy with patial facetectomy Surgeon: Steve Rios Chief [facility]: none Estimated blood loss (mL): 25 Procedure: T10/11 laminectomy with patial facetectomy Patient is brought to the operative suite. After undergoing anesthesia they are placed in the prone position. All areas of impingement are well padded. Patient is then prepped and draped in the normal sterile fashion. A skin incision is made over the T10-11 level. This is confirmed under c-arm guidance. A series of dilators are passed and the tubular retractor is docked on the T10 lamina. A bovie is used to clear the soft tissue off the lamina and the identical legsT10/11 facet joint. A high speed иван is then used to perform the laminectomy and take down the medial aspect of the T10/11 facet joint. A kerrison rongeure was then used to take down the remaining lamina and smooth the edge of the laminectomy up to the point where the ligamentum flavum attaches. Attention was then brought to the medial aspect of the facet joint. The remaining medial aspect of the superior and inferior aspect of the facet joint were taken down with the kerrison from the pedicle of T10 to T11. The facet joint had significant hypertrophy. Attention was then brought to the Ligamentum Flavum. The ligament was taken down from the lamina of T10 to T11 and out medially to the remaining facet joint. The ligament was thick. The dura was then exposed. The dura was in good repair. Wound is then irrigated copiously with saline and surgiflo is used to stop any bleeding. The tubular retractor is removed and the wound is closed with vicryl and monocryl suture. Glue is then used to protect the wound. A sterile dressing is then placed. Patient was then placed in the supine position and transferred to the PACU in stable condition.
--- NOTE | 2023-02-07 12:11 | ANE.PACU2 ---
Inpatient post-anesthesia follow up: Airway intact: Yes Vital signs: Temperature 97.0 F Pulse Rate 93 Respiratory Rate 17 Blood Pressure 145/82 Pulse Oximetry 93 Oxygen Delivery Me thod Room Air Oxygen Flow Rate 6 Fraction of Inspir ed Oxygen Hydration adequate: Yes Nausea and vomiting: Yes Pain level: 1 Mental status: Baseline
[2023-02-07] MEDS: HYDROcodone-acetaminophen 5-325 mg Tablet 1 TAB PO (12:23)
== END 2023-02-07 13:00 | disposition home or self-care (01) ==
PROVIDERS: PCP Family Medicine; Visit Provider Orthopaedic Surgery
PROC: (CPT 63003; principal; 2023-02-07 10:00)
DX: M48.04 Spinal stenosis, thoracic region (principal); J44.9 Chronic obstructive pulmonary disease, unspecified; G47.30 Sleep apnea, unspecified; D64.9 Anemia, unspecified; I10 Essential (primary) hypertension; K21.9 Gastro-esophageal reflux disease without esophagitis; E11.9 Type 2 diabetes mellitus without complications; E66.01 Morbid (severe) obesity due to excess calories; Z68.43 Body mass index [BMI] 50.0-59.9, adult; E03.9 Hypothyroidism, unspecified; F41.9 Anxiety disorder, unspecified; F32.A Depression, unspecified; Z79.4 Long term (current) use of insulin; F17.210 Nicotine dependence, cigarettes, uncomplicated
CPT/HCPCS: 63046; 36416; 72020; 76000; 81025; 82962; J0690; J1100; J1170; J2405; J2704; J3010; J3490; J7030

== ENCOUNTER → 2023-02-27 12:50 | Outpatient (BNVA) | payer MEDICARE, MEDICAID, SELFPAY | PROVIDERS: PCP Family Medicine; Visit Provider Physician Assistant | DX: Z98.890 Other specified postprocedural states (principal) | CPT/HCPCS: 99024 ==

== ENCOUNTER → 2023-03-18 12:36 | Outpatient (BNVA) | payer MEDICARE, MEDICAID, SELFPAY | PROVIDERS: PCP Family Medicine; Visit Provider Orthopaedic Surgery | DX: Z98.890 Other specified postprocedural states (principal) | CPT/HCPCS: 99024 ==

== ENCOUNTER 2023-04-07 07:35 | Outpatient (CLI) | payer MEDICARE, MEDICAID, SELFPAY ==
[2023-04-07 08:19] LABS: Alanine Aminotransferase 41 U/L (0-33); Albumin Level 4.2 g/dL (3.5-5.2); Alkaline Phosphatase 127 U/L (35-105); Aspartate Amino Transferase 12 U/L (0-32); Blood Urea Nitrogen 13 mg/dL (6-20); Calcium 9.7 mg/dL (8.5-10.5); Carbon Dioxide 25 mmol/L (22-29); Chloride 100 mmol/L (98-107); Chol HDL Ratio 6.04 mg/dL (0.0-4.40); Cholesterol 278 mg/dL (0-200); Globulin 2.9 g/dL (1.3-4.6); Glomerular Filtration Rate 63.1 mL/min (90-130); Glucose 132 mg/dL (65-115); HDL Cholesterol 46 mg/dL (60-100); LDL Cholesterol Calculated 166 mg/dL (50-129); LDL HDL Ratio 3.61 RATIO (0.00-3.22); Osmolality Calculated 288 mOsm/kg (285-295); Sodium 138 mmol/L (136-145); Total Bilirubin 0.4 mg/dL (0.15-1.2); Total Protein 7.1 g/dL (6.6-8.7); Triglycerides 331 mg/dL (0-150)
[2023-04-07 08:20] LABS: Anion Gap 17.4 (5-19); Potassium 4.4 mmol/L (3.5-5.1)
[2023-04-07 08:22] LABS: Creatinine Urine, Random 148 mg/dL (28-217); Microalbum Creatinine Ratio Ur 7 mg/dL (0-20); Microalbumin Random Urine 1 ug/dL (0-20)
[2023-04-07 08:54] LABS: Estmated Average Glucose 131; Hemoglobin A1C 6.2 % (4.0-6.0)
== END 2023-04-07 07:36 | disposition home or self-care (01) ==
PROVIDERS: PCP Family Medicine; Visit Provider Internal Medicine
DX: E11.40 Type 2 diabetes mellitus with diabetic neuropathy, unspecified (principal); E78.2 Mixed hyperlipidemia; K76.0 Fatty (change of) liver, not elsewhere classified; Z79.4 Long term (current) use of insulin; Z79.891 Long term (current) use of opiate analgesic; I10 Essential (primary) hypertension; Z79.84 Long term (current) use of oral hypoglycemic drugs
CPT/HCPCS: 36415; 80053; 80061; 82044; 83036; 99214

== ENCOUNTER → 2023-04-29 14:00 | Outpatient (BNVA) | payer MEDICARE, MEDICAID, SELFPAY | PROVIDERS: PCP Family Medicine; Visit Provider Orthopaedic Surgery | DX: M48.062 Spinal stenosis, lumbar region with neurogenic claudication; Z47.89 Encounter for other orthopedic aftercare; Z79.891 Long term (current) use of opiate analgesic; Z01.818 Encounter for other preprocedural examination | CPT/HCPCS: 36415; 80053; 81003; 83036; 85025; 99214 ==

== ENCOUNTER 2023-05-09 09:47 | Day surgery (SDC) | payer MEDICARE, MEDICAID, SELFPAY ==
[2023-05-08 13:58] VITALS: BMI 53.1
[2023-05-09] VITALS (13 sets, daily range): BP systolic 116–175; BP diastolic 40–103; PULSE 78–101; RESP 10–18; TEMP 36.2–36.7; O2SAT 93–99; BMI 54.3
--- NOTE | 2023-05-09 | XR_ITS ---
WS: [id number] INTRAOPERATIVE TECHNIQUE: 2 Spot fluoroscopic images for intraoperative purposes. FLUOROSCOPY TIME: 28.1 seconds CLINICAL INFORMATION: SURGICAL PROCEDURE COMPARISON: None. FINDINGS: Localization marker projected over the L4-L5 and L5-S1 interspaces IMPRESSION: Images obtained for intraoperative purposes.
--- NOTE | 2023-05-09 11:04 | ANES.PREANE2 ---
Pre-Anesthetic Assessment Height/Weight: Height 1.6 m Weight 139.253 kg Temp Pulse Resp BP Pulse Ox O2 Del Method 97.3 F L 83 17 156/40 99 Room Air 05/09/23 10:50 05/09/23 10:50 05/09/23 10:50 05/09/23 10:50 05/09/23 10:50 05/09/23 10:57 Preop Diagnosis: Lumbar stenosis Operation Date: 05/09/23 13:00 Proposed Procedures p Lumbar Spine Decompression Lumbar Decompression(Bilateral) - Steve Rios, Familial anesthetic complications: None Was Beta Sarah taken within 24 hours: N/A Was Clonidine taken within 24 hours: N/A Last intake: Intake Last Liquid Date 05/08/23 Last Liquid Time 21:00 Last Solid Date 05/08/23 Last Solid Time 21:00 Social Tobacco and No alcohol Exam alert, oriented x 3, clear to auscultation bilaterally and regular rate & rhythm Airway Mallampati: Class III Dentition: other (no teeth) Pulmonary Asthma, Chronic Obstructive Pulmonary Disease and Sleep Apnea CV/HEM Hypertension GI Gastroesophageal Reflux Disease Anesthetic Plan ASA status: 3 Anesthesia: General Risk of > 500 ml blood loss (7ml/kg in children): No Medications/Allergies Home Medications Medication Instructions Recorded Confirmed Last Taken Type lancets (Accu-Chek Fastclix Lancet #100 ea 04/18/20 04/29/23 Unknown Rx Drum) flash glucose scanning reader #1 ea 11/15/20 04/29/23 Unknown Rx (FreeStyle Zackery 2 [place]) flash glucose sensor (FreeStyle #2 ea 11/15/20 04/29/23 Unknown Rx Zackery 2 Sensor kit) 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 transmitter (Dexcom 12/17/21 04/29/23 Unknown History G4 Transmitter device) ASO to the Left Ankle #1 ea 05/16/22 04/29/23 Unknown Rx furosemide 40 mg tablet 40 mg PO DAILY #90 tabs 05/29/22 05/08/23 02/06/23 Rx lisinopril 20 1 tab PO DAILY #90 tabs 05/29/22 05/08/23 02/06/23 Rx mg-hydrochlorothiazide 25 mg tablet metformin 500 mg tablet,extended 500 mg PO BID #180 tabs 06/03/22 05/08/23 02/06/23 Rx release 24 hr ferrous gluconate 324 mg (37.5 mg 324 mg PO .q48 #90 tabs 07/12/22 05/08/23 02/06/23 Rx iron) tablet gabapentin 300 mg capsule 300 mg PO BID 07/12/22 05/08/23 01/31/23 History ciclopirox 0.77 % topical cream 1 applic topical BID 4 weeks #30 07/15/22 05/08/23 02/06/23 Rx grams clobetasol 0.05 % topical ointment 1 applic topical BID 2 weeks #60 09/11/22 05/08/23 01/31/23 Rx grams Diabetic shoes with 3 sets of #1 ea 09/25/22 04/29/23 Unknown Rx inserts insulin aspart U-100 100 unit/mL 10 unit (0.1 mL) SUBCUT TID #27 mL 09/25/22 05/08/23 02/06/23 Rx (3 mL) subcutaneous pen (Novolog FlexPen U-100 Insulin aspart) pen needle, diabetic 32 gauge x #300 ea 09/25/22 04/29/23 Unknown Rx 1/4 (BD Ultra-Fine Micro Pen Needle) montelukast 10 mg tablet 10 mg PO DAILY #90 tabs 11/20/22 05/08/23 02/06/23 Rx (Singulair) potassium chloride 20 mEq 20 meq PO DAILY #90 tabs 11/29/22 05/08/23 02/06/23 Rx tablet,extended release atenolol 25 mg tablet 25 mg PO BID #180 tabs 12/23/22 05/08/23 02/07/23 Rx spironolactone 50 mg tablet 50 mg PO DAILY #90 tabs 12/24/22 05/08/23 02/06/23 Rx hinged knee brace #1 ea 12/26/22 04/29/23 Unknown Rx 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 meter (Accu-Chek #1 ea 01/02/23 04/29/23 Unknown Rx Guide Glucose Meter) lancets (Accu-Chek Softclix #100 ea 01/02/23 04/29/23 Unknown Rx Lancets) omeprazole 40 mg capsule,delayed 40 mg PO BID PRN acid reflux #180 01/21/23 05/08/23 02/06/23 Rx release caps albuterol sulfate 90 mcg/actuation 2 puff inhalation Q6H PRN 02/17/23 05/08/23 Unknown Rx aerosol inhaler (Ventolin HFA) Shortness Of Breath Or Wheezing #8.5 grams buspirone 10 mg tablet 20 mg PO TID #180 tabs 02/28/23 05/08/23 Unknown Rx tirzepatide 15 mg/0.5 mL See Rx Instructions .Route 03/17/23 05/08/23 Unknown Rx subcutaneous pen injector .COMPLEX #2 mL (Mounjaro) citalopram 40 mg tablet 40 mg PO DAILY #90 tabs 03/19/23 05/08/23 Unknown Rx trazodone 100 mg tablet 200 mg PO .HS PRN insomnia #60 tabs 03/19/23 05/08/23 Unknown Rx budesonide-formoterol HFA 160 2 puff inhalation BID COPD #10.2 03/21/23 05/08/23 Unknown Rx mcg-4.5 mcg/actuation aerosol grams inhaler (Symbicort) blood sugar diagnostic (Accu-Chek #200 strips 04/04/23 04/29/23 Unknown Rx Guide test strips) insulin pump cart,automated,BT #5 ea 04/07/23 04/29/23 Unknown Rx (Omnipod 5 G6 Pods (Gen 5) subcutaneous cartridge) tirzepatide 5 mg/0.5 mL 5 mg (0.5 mL) SUBCUT .twice weekly 04/07/23 05/08/23 Unknown Rx subcutaneous pen injector 30 days #4 mL (Mounjaro) venlafaxine 150 mg See Rx Instructions .Route 04/23/23 05/08/23 Unknown Rx capsule,extended release 24 hr .COMPLEX #30 caps 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 meter,continuous #1 ea 04/28/23 04/29/23 Unknown Rx (Dexcom G7 Probate Lawyer) 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 sensor (Dexcom G7 #9 ea 04/28/23 04/29/23 Unknown Rx Sensor device) diazepam 5 mg tablet (Valium) 5 mg PO Q8H PRN anxiety/spasm #30 04/29/23 05/08/23 Unknown Rx tabs oxycodone 5 mg tablet 5 mg PO Q6H PRN pain 7 days #30 05/06/23 05/08/23 Unknown Rx tabs sumatriptan succinate 25 mg tablet See Rx Instructions .Route 05/08/23 05/08/23 Unknown History (Imitrex) .COMPLEX PRN Migraine Headache Allergies Allergy/AdvReac Type Severity Reaction Status Date / Time ibuprofen Allergy Mild ALGY-Swell Verified 05/08/23 13:52 Lip/Tongue/Throat diclofenac Allergy ADR-Vomitin Verified 05/08/23 13:52 g ketorolac [From Toradol] Allergy sick Verified 05/08/23 13:52 [facility] Anesthesia Medical History Amenorrhea Asthma Atypical chest pain Bilateral chronic knee pain Bilateral leg edema Chronic anemia Dyslipidemia GERD (gastroesophageal reflux disease) 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 Migraine Morbid obesity with BMI of 60.0-69.9, adult Muscle spasms of both lower extremities DHEERAJ (obstructive sleep apnea) Pain management contract signed Spinal stenosis, thoracic region Tobacco use disorder Type 2 diabetes mellitus, with long-term current use of insulin Surgical History History of cholecystectomy Family History Father CAD (coronary artery disease) Diabetes Hypertension Seizures Bleeding disorder Hyperlipidemia Lung disease Psychiatric illness Stroke Family/Other Cancer Clotting disorder Hyperlipidemia Lung disease Psychiatric illness Stroke Mother Diabetes Hypertension Hyperlipidemia Lung disease Other Chronic kidney disease (CKD) Denies family history of Dementia Anesthesia complication Social History Smoking and tobacco status: current every day smoker cigarettes Packs smoked per day: 1.5 Years cigarettes smoked: 20 [ Other cigarette details: 2PPD, 30PY onset at 15yo] Quit status (tobacco): considering quitting Second hand smoke exposure: Yes Smoking risk assessment/counseling performed?: No Alcohol intake: former Year of sobriety/quit date alcohol: 2016 Desire information about alcohol rehabilitation?: No Counseling given: No Substance/Drug Use: former Date of last use: MJ quit in 2021 with new pain management Desire information about substance/drug rehabilitation?: No Counseling given: No Caregiver/support person: Yes Household members: spouse and family Marital status: Current occupational status: disabled Current occupation: disabled Special lacey needs: No Female Reproductive History Para: 1 Data Anesthesia Cardiac Studies: Sestamibi Stress Test (Cardiology) 01/28/22
[2023-05-09] MEDS: sodium chloride 0.9% 1,000 ML 30 ML IV (11:15)
[2023-05-09 11:19] LABS: Glucose Point of Care 137 mg/dL (70-110)
[2023-05-09 11:27] LABS: OR HCG Qualitative Urine Negative (Negative)
--- NOTE | 2023-05-09 12:02 | P.HP_ITS ---
Same Day Surgery H&P Indication for Procedure/HPI DATE OF PROCEDURE: May 09, 2023 CHIEF COMPLAINT/INDICATIONFOR SURGICAL PROCEDURE: Back and leg pain PREOP DIAGNOSIS: Lumbar stenosis PLANNED PROCEDURE: Operation Date: 05/09/23 13:00 Proposed Procedures p Lumbar Spine Decompression Lumbar Decompression(Bilateral) - Steve Rios DO Medications/Allergies* Home Medications Medication Instructions Recorded Confirmed Type 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 transmitter (Dexcom 12/17/21 04/29/23 History G4 Transmitter device) gabapentin 300 mg capsule 300 mg PO BID 07/12/22 05/08/23 History sumatriptan succinate 25 mg tablet See Rx Instructions .Route 05/08/23 05/08/23 History (Imitrex) .COMPLEX PRN Migraine Headache Allergies/Adverse Reactions Allergy/AdvReac Type Severity Reaction Status Date / Time ibuprofen Allergy Mild ALGY-Swell Verified 05/08/23 13:52 Lip/Tongue/Throat diclofenac Allergy ADR-Vomitin Verified 05/08/23 13:52 g ketorolac [From Toradol] Allergy sick Verified 05/08/23 13:52 Current Medications: Generic Name Dose Route Start Last Admin Trade Name Freq PRN Reason Stop Dose Admin Sodium Chloride 1,000 mls @ 30 mls/hr 05/09/23 10:30 05/09/23 11:15 Sodium Chloride 0.9% IV 05/10/23 10:29 30 mls/hr .Q24H MARY Administration Pertinent History/Comorbid Conditions* Medical History (Updated 04/29/23 @ 14:54 by Steve Rios DO) Amenorrhea Asthma Atypical chest pain Bilateral chronic knee pain Bilateral leg edema Chronic anemia Dyslipidemia GERD (gastroesophageal reflux disease) 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 Migraine Morbid obesity with BMI of 60.0-69.9, adult Muscle spasms of both lower extremities DHEERAJ (obstructive sleep apnea) Pain management contract signed Spinal stenosis, thoracic region Tobacco use disorder Type 2 diabetes mellitus, with long-term current use of insulin Surgical History (Updated 02/27/23 @ 14:15 by Bacilio Kirk PA-C) History of cholecystectomy Family History (Updated 07/12/22 @ 13:15 by Mone Diamond LPN) Diabetes Father Mother CAD (coronary artery disease) Father Clotting disorder Family/Other Hyperlipidemia Father Family/Other Mother Psychiatric illness Father Family/Other Chronic kidney disease (CKD) Seizures Father Bleeding disorder Father Lung disease Father Family/Other Mother Cancer Family/Other Hypertension Father Mother Stroke Father Family/Other Denies family history of Dementia Anesthesia complication Social History Smoking and tobacco status: current every day smoker cigarettes Packs smoked per day: 1.5 Years cigarettes smoked: 20 [ Other cigarette details: 2PPD, 30PY onset at 15yo] Quit status (tobacco): considering quitting Second hand smoke exposure: Yes Smoking risk assessment/counseling performed?: No Alcohol intake: former Year of sobriety/quit date alcohol: 2016 Desire information about alcohol rehabilitation?: No Counseling given: No Substance/Drug Use: former Date of last use: MJ quit in 2021 with new pain management Desire information about substance/drug rehabilitation?: No Counseling given: No Caregiver/support person: Yes Household members: spouse and family Marital status: Current occupational status: disabled Current occupation: disabled Special lacey needs: No Pertinent Exam Findings alert and oriented x 3 Recommendations Surgery/Procedure today Coding Level of Care Code Acute Code for Chg Fwd Diagnoses
[2023-05-09] MEDS: fentaNYL 50 mcg/mL INJ 2mL IVP ×2 (12:18→15:02)
[2023-05-09] MEDS: ceFAZolin 2,000 MG in sodium chloride 0.9% (plus) 50 ML 100 MG IV (13:20)
[2023-05-09] MEDS: lidocaine-epi 1% 20 mL INJ INJECTION (14:14)
--- NOTE | 2023-05-09 15:05 | P.OP_ITS ---
Operative Report Date of procedure: May 09, 2023 Pre-op diagnosis: Lumbar stenosis with neurogenic claudication Post-op diagnosis: same Procedure done: L4-5 laminectomy with partial facetectomy L5-S1 laminectomy with partial facetectomy Surgeon: Steve Rios DO Senior Customer Service Representative: None Estimated blood loss (mL): 25 Procedure: L4-5 laminectomy with partial facetectomy L5-S1 laminectomy with partial facetectomy Patient is brought to the operative suite. After undergoing anesthesia they are placed in the prone position. All areas of impingement are well padded. Patient is then prepped and draped in the normal sterile fashion. A skin incision is made over the L4/5 level. This is confirmed under c-arm guidance. A series of dilators are passed and the tubular retractor is docked on the L4 lamina. A bovie is used to clear the soft tissue off the lamina and the L 4/5 facet joint. A high speed иван is then used to perform the laminectomy and take down the medial aspect of the L 4/5 facet joint. A kerrison rongeure was then used to take down the remaining lamina and smooth the edge of the laminectomy up to the point where the ligamentum flavum attaches. Attention was then brought to the medial aspect of the facet joint. The remaining medial aspect of the superior and inferior aspect of the facet joint were taken down with the kerrison from the pedicle of L4 to L 5. The facet joint had significant hypertrophy. Attention was then brought to the Ligamentum Flavum. The ligament was taken down from the lamina of L4 to L5 and out medially to the remaining facet joint. The ligament was thick. The dura was then exposed. The dura was in good repair. The L4 nerve was then traced with a curette out the L4/5 foramen and found to be adequately decompressed. The L5 nerve was traced with a curette around the L5 pedicle. The lateral recess was opened with a kerrison helping to further decompress the L5 nerve. Wound is then irrigated copiously with saline and surgiflo is used to stop any bleeding. The tubular retractor is removed and the A skin incision is made over the L5/S1 level. This is confirmed under c-arm guidance. A series of dilators are passed and the tubular retractor is docked on the L5 lamina. A bovie is used to clear the soft tissue off the lamina and the L 5/S1 facet joint. A high speed иван is then used to perform the laminectomy and take down the medial aspect of the L 5/S1 facet joint. A kerrison rongeure was then used to take down the remaining lamina and smooth the edge of the laminectomy up to the point where the ligamentum flavum attaches. Attention was then brought to the medial aspect of the facet joint. The remaining medial aspect of the superior and inferior aspect of the facet joint were taken down with the kerrison from the pedicle of L5 to S1. The facet joint had significant hypertrophy. Attention was then brought to the Ligamentum Flavum. The ligament was taken down from the lamina of L5 to S1 and out medially to the remaining facet joint. The ligament was thick. The dura was then exposed. The dura was in good repair. The L5 nerve was then traced with a curette out the L5/S1 foramen and found to be adequately decompressed. The S1 nerve was traced with a curette around the S1 pedicle. The lateral recess was opened with a kerrison helping to further decompress the S1 nerve. Wound is then irrigated copiously with saline and surgiflo is used to stop any bleeding. The tubular retractor is removed and the wound is closed with vicryl and monocryl suture. Glue is then used to protect the wound. A sterile dressing is then placed. Patient was then placed in the supine position and transferred to the PACU in stable condition.
--- NOTE | 2023-05-09 16:15 | ANE.PACU2 ---
Inpatient post-anesthesia follow up: Airway intact: Yes Vital signs: Temperature 97.8 F Pulse Rate 82 Respiratory Rate 16 Blood Pressure 141/69 Pulse Oximetry 95 Oxygen Delivery Me thod Room Air Oxygen Flow Rate 5 Fraction of Inspir ed Oxygen Hydration adequate: Yes Nausea and vomiting: No Pain level: 1 Mental status: Baseline
== END 2023-05-09 16:06 | disposition home or self-care (01) ==
PROVIDERS: PCP Family Medicine; Visit Provider Orthopaedic Surgery
PROC: (CPT 63005; principal; 2023-05-09 12:50)
DX: M48.062 Spinal stenosis, lumbar region with neurogenic claudication (principal); I10 Essential (primary) hypertension; J44.9 Chronic obstructive pulmonary disease, unspecified; K21.9 Gastro-esophageal reflux disease without esophagitis; Z79.84 Long term (current) use of oral hypoglycemic drugs; E78.5 Hyperlipidemia, unspecified; G47.33 Obstructive sleep apnea (adult) (pediatric); F17.210 Nicotine dependence, cigarettes, uncomplicated; E66.01 Morbid (severe) obesity due to excess calories; Z68.43 Body mass index [BMI] 50.0-59.9, adult
CPT/HCPCS: 63047; 63048; 36416; 72020; 76000; 81025; 82962; 84703; J0690; J1100; J2405; J2704; J2710; J3010; J3490; J7030

== ENCOUNTER → 2023-05-20 15:05 | Outpatient (BNVA) | payer MEDICARE, MEDICAID, SELFPAY | PROVIDERS: PCP Family Medicine; Visit Provider Physician Assistant | DX: Z47.89 Encounter for other orthopedic aftercare (principal); Z98.890 Other specified postprocedural states | CPT/HCPCS: 99024 ==

== ENCOUNTER → 2023-06-17 14:00 | Outpatient (BNVA) | payer MEDICARE, MEDICAID, SELFPAY | PROVIDERS: PCP Family Medicine; Visit Provider Orthopaedic Surgery | DX: M48.062 Spinal stenosis, lumbar region with neurogenic claudication (principal); Z47.89 Encounter for other orthopedic aftercare | CPT/HCPCS: 99024 ==

== ENCOUNTER → 2023-07-08 07:17 | Outpatient (BNVA) | payer MEDICARE, MEDICAID, SELFPAY | PROVIDERS: PCP Family Medicine; Visit Provider Student in an Organized Health Care Education/Training Program | DX: M94.261 Chondromalacia, right knee (principal); E11.9 Type 2 diabetes mellitus without complications; Z79.4 Long term (current) use of insulin; Z79.891 Long term (current) use of opiate analgesic; I10 Essential (primary) hypertension | CPT/HCPCS: 20610; 36415; 80053; 80061; 82044; 83036; 99213; J3301 ==

== ENCOUNTER → 2023-07-09 07:54 | Outpatient (BNVA) | payer MEDICARE, MEDICAID, SELFPAY | PROVIDERS: PCP Family Medicine; Visit Provider Internal Medicine | DX: Z79.4 Long term (current) use of insulin; I10 Essential (primary) hypertension; K76.0 Fatty (change of) liver, not elsewhere classified; E11.40 Type 2 diabetes mellitus with diabetic neuropathy, unspecified; E78.2 Mixed hyperlipidemia; R74.01 Elevation of levels of liver transaminase levels; Z79.84 Long term (current) use of oral hypoglycemic drugs | CPT/HCPCS: 99214 ==

== ENCOUNTER → 2023-07-16 15:26 | Outpatient (BNVA) | payer MEDICARE, MEDICAID, SELFPAY | PROVIDERS: PCP Family Medicine; Visit Provider Family Medicine | DX: R74.01 Elevation of levels of liver transaminase levels (principal); Z79.899 Other long term (current) drug therapy | CPT/HCPCS: 80053; 80503; 84439; 84443; 85025; 86705; 86706; 86709; 86803; 87340 ==

== ENCOUNTER → 2023-07-29 07:41 | Outpatient (BNVA) | payer MEDICARE, MEDICAID, SELFPAY | PROVIDERS: PCP Family Medicine; Visit Provider Podiatrist Foot & Ankle Surgery | DX: M21.41 Flat foot [pes planus] (acquired), right foot (principal); M21.42 Flat foot [pes planus] (acquired), left foot; E11.9 Type 2 diabetes mellitus without complications; Z79.4 Long term (current) use of insulin; Z47.89 Encounter for other orthopedic aftercare; Z79.84 Long term (current) use of oral hypoglycemic drugs | CPT/HCPCS: 99024; 99213 ==

== ENCOUNTER 2023-07-30 08:08 | Outpatient (CLI) | payer MEDICARE, MEDICAID, SELFPAY ==
--- NOTE | 2023-07-30 09:30 | US_ITS ---
WS: [id number] RIGHT UPPER QUADRANT ULTRASOUND HISTORY: transaminitis COMPARISON: Prior CT 10/28/2019, 01/07/2023. Liver: 18.9 cm in length. Moderate hepatomegaly and hepatic steatosis. No mass identified. Portal Vein: Normal hepatopetal flow with monophasic waveform. Gallbladder: Status post cholecystectomy. CBD: 0.5 cm Pancreas: Poorly visualized. Right kidney: 11.8 cm in length. Normal size and echogenicity. No hydronephrosis or mass. Aorta and IVC: Unremarkable abdominal aorta and IVC. No ascites. There is a cystic mass in the low abdomen extending into the pelvis. Mass is at the midline measuring 8.5 x 7.8 x 7.9 cm. There is through transmission. No solid component. This mass has been previously described dating back to 10/28/2019. On prior CT evaluation mass was noted to abut both ovaries. Ther e is also encasement by small bowel on the prior CT. No significant increase in size. IMPRESSION: 1. Prior cholecystectomy. 2. Moderate hepatomegaly and hepatic steatosis. 3. Large cystic mass in the low abdomen extending into the pelvis measures 8.5 x 7.8 x 7.9 cm. The cy stic mass has been previously described on prior CT evaluations. Mass abutting both ovaries on the pr ior CT from 10/28/2019. There is also encasement and in separation from the small bowel loops. Differe ntial includes ovarian cyst whether be of benign or malignant etiologies. Due to long-term stability probably benign. Mesenteric cyst also possibility due to its close association with the small bowel.
== END 2023-07-30 08:09 | disposition home or self-care (01) ==
LOC: RAD 08:09
PROVIDERS: PCP Family Medicine; Visit Provider Family Medicine
DX: R74.01 Elevation of levels of liver transaminase levels (principal); K76.0 Fatty (change of) liver, not elsewhere classified; R16.0 Hepatomegaly, not elsewhere classified; R19.09 Other intra-abdominal and pelvic swelling, mass and lump; Z90.49 Acquired absence of other specified parts of digestive tract
CPT/HCPCS: 76705

== ENCOUNTER 2023-08-18 09:37 | Oncology outpatient (recurring) (ONCR) | payer MEDICARE, MEDICAID, SELFPAY ==
[2023-08-18 11:51] LABS: Basophils # 0.1 10^3/uL (0.0-0.1); Basophils % 0.3 %; Eosinophils # 0.2 10^3/uL (0.0-0.8); Eosinophils % 1.2 %; Hematocrit 50.1 % (36-47); Lymphocytes # 2.3 10^3/uL (0.8-4.8); Lymphocytes % 15.5 %; Mean Corpuscular HGB Conc 33.3 g/dL (30-55); Mean Corpuscular Hemoglobin 29.5 pg (27-33); Mean Corpuscular Volume 88.4 fl (85-98); Mean Platelet Volume 11.1 fL (7.4-10.4); Monocytes # 0.9 10^3/uL (0.2-0.9); Monocytes % 6.4 %; Neutrophils # 11.06 10^3/uL (1.8-7.7); Neutrophils % 75.4 %; Nucleated Red Blood Cells % 0 %; Platelet Count 322 10^3/cmm (157-399); Red Blood Count 5.67 10^6/uL (3.85-5.65); Red Cell Distribution Width 13.2 % (12.1-15.1); White Blood Count 14.67 10^3/uL (3.29-11.43)
[2023-08-18 12:08] LABS: LAB Peripheral Smear Sent for Review
[2023-08-18 12:11] LABS: Alanine Aminotransferase 258 U/L (0-33); Albumin Level 4.1 g/dL (3.5-5.2); Alkaline Phosphatase 210 U/L (35-105); Anion Gap 14.8 (5-19); Aspartate Amino Transferase 31 U/L (0-32); Blood Urea Nitrogen 12 mg/dL (6-20); C Reactive Protein 30.9 mg/L (0.0-4.9); Calcium 9.3 mg/dL (8.5-10.5); Carbon Dioxide 23 mmol/L (22-29); Chloride 102 mmol/L (98-107); Globulin 3.7 g/dL (1.3-4.6); Glomerular Filtration Rate 81.2 mL/min (90-130); Glucose 140 mg/dL (65-115); Lactate Dehydrogenase 191 U/L (135-214); Osmolality Calculated 284 mOsm/kg (285-295); Potassium 3.8 mmol/L (3.5-5.1); Sodium 136 mmol/L (136-145); Total Bilirubin 0.5 mg/dL (0.15-1.2); Total Protein 7.8 g/dL (6.6-8.7)
[2023-08-20 13:59] LABS: Erythropoietin 15.4 mIU/mL (2.6-18.5)
[2023-08-22 12:23] LABS: P190 BCR ALB1 NOT DETECTED; P190 BCR ALB1 Yes Test Yes; P210 BCR ALB1 NOT DETECTED; P210 BCR ALB1 Yes Test Yes; Source whole blood
[2023-08-27 16:15] LABS: CALR Exon 9 Mutation NOT DETECTED (NOT DETECTED); CSF3R Exon 14/17 Mutation NOT DETECTED (NOT DETECTED); JAK2 Exon 12 Mutation NOT DETECTED (NOT DETECTED); JAK2 V617 Block Specimen ID NG; JAK2 V617 Clinical Indication NG; JAK2 V617 Mutation NOT DETECTED (NOT DETECTED); JAK2 V617 Specimen Source NG; MPL Exon 12 Mutation NOT DETECTED (NOT DETECTED)
== END 2023-09-07 23:59 | disposition home or self-care (01) ==
PROVIDERS: PCP Family Medicine; Visit Provider Internal Medicine
DX: D72.829 Elevated white blood cell count, unspecified (principal); Z71.6 Tobacco abuse counseling; Z79.899 Other long term (current) drug therapy
CPT/HCPCS: 36415; 80053; 80503; 81206; 81207; 81270; 81279; 81339; 81479; 82668; 83615; 85025; 86140; 99204

== ENCOUNTER → 2023-09-09 10:22 | Outpatient (BNVA) | payer MEDICARE, MEDICAID, SELFPAY | PROVIDERS: PCP Family Medicine; Visit Provider Student in an Organized Health Care Education/Training Program | DX: M25.561 Pain in right knee (principal); S83.206A Unspecified tear of unspecified meniscus, current injury, right knee, initial encounter; X58.XXXA Exposure to other specified factors, initial encounter | CPT/HCPCS: 73560; 73565; 99213 ==

== ENCOUNTER 2023-09-19 08:20 | Oncology outpatient (recurring) (ONCR) | payer MEDICARE, SELFPAY ==
[2023-09-19 09:03] VITALS: BP 134/90; PULSE 93; RESP 16; TEMP 36.1; O2SAT 94
[2023-09-19 09:31] LABS: Basophils # 0.1 10^3/uL (0.0-0.1); Basophils % 0.4 %; Eosinophils # 0.5 10^3/uL (0.0-0.8); Eosinophils % 3.4 %; Hematocrit 49.6 % (36-47); Lymphocytes # 1.9 10^3/uL (0.8-4.8); Lymphocytes % 14.8 %; Mean Corpuscular HGB Conc 33.5 g/dL (30-55); Mean Corpuscular Hemoglobin 29.1 pg (27-33); Mean Corpuscular Volume 86.9 fl (85-98); Mean Platelet Volume 10.9 fL (7.4-10.4); Monocytes # 0.8 10^3/uL (0.2-0.9); Monocytes % 6.3 %; Neutrophils # 9.73 10^3/uL (1.8-7.7); Neutrophils % 74.1 %; Nucleated Red Blood Cells % 0 %; Platelet Count 300 10^3/cmm (157-399); Red Blood Count 5.71 10^6/uL (3.85-5.65); Red Cell Distribution Width 12.9 % (12.1-15.1); White Blood Count 13.13 10^3/uL (3.29-11.43)
[2023-09-19 09:58] LABS: Alanine Aminotransferase 222 U/L (0-33); Albumin Level 3.7 g/dL (3.5-5.2); Alkaline Phosphatase 290 U/L (35-105); Anion Gap 12.9 (5-19); Aspartate Amino Transferase 114 U/L (0-32); Blood Urea Nitrogen 11 mg/dL (6-20); Calcium 9.1 mg/dL (8.5-10.5); Carbon Dioxide 25 mmol/L (22-29); Chloride 103 mmol/L (98-107); Globulin 3.7 g/dL (1.3-4.6); Glomerular Filtration Rate 113.1 mL/min (90-130); Glucose 150 mg/dL (65-115); Osmolality Calculated 286 mOsm/kg (285-295); Potassium 3.9 mmol/L (3.5-5.1); Sodium 137 mmol/L (136-145); Total Bilirubin 0.8 mg/dL (0.15-1.2); Total Protein 7.4 g/dL (6.6-8.7)
== END 2023-10-08 23:59 | disposition home or self-care (01) ==
PROVIDERS: PCP Family Medicine; Visit Provider Internal Medicine
DX: D72.829 Elevated white blood cell count, unspecified (principal); Z71.6 Tobacco abuse counseling; Z79.899 Other long term (current) drug therapy; Z53.9 Procedure and treatment not carried out, unspecified reason
CPT/HCPCS: 36415; 80053; 85025; 99214

== ENCOUNTER 2023-10-07 06:36 | Outpatient (CLI) | payer MEDICARE, MEDICAID, SELFPAY ==
--- NOTE | 2023-10-07 07:15 | MR_ITS ---
WS: [id number] MRI RIGHT KNEE NONCONTRAST TECHNIQUE: Axial PD, coronal PD fat sat, coronal PD, sagittal PD, and sagittal PD fat-sat images obta ined. CLINICAL INFORMATION: meniscal tear COMPARISON: None. FINDINGS: Images degraded by motion. Moderate tricompartmental arthritis advanced for patient this age. Diffuse edema in the subcutaneous soft tissues. Distal quadriceps and patella tendons are intact. Normal ACL and PCL. Chronic thinning of the medial and lateral meniscus. No acute appearing meniscal tears. Parameniscal cyst along the po sterior horn medial meniscus measuring 10 x 7 x 15 mm. Trace suprapatellar fluid. Medial and lateral patellar retinaculum appear intact. Advanced chondromalacia patella. Medial and lateral collateral li gaments appear intact. IMPRESSION: Images degraded by patient motion. 1. Moderate tricompartmental arthritis advanced for a patient this age. 2. ACL and PCL appear intact. 3. Chronic appearing blunting involving the medial meniscal root due to prior tear. Parameniscal cy st along the posterior horn medial meniscus measuring 10 x 7 x 15 mm 4. Advanced chondromalacia patella advanced for a patient this age. Tiny suprapatellar effusion. 5. Diffuse soft tissue subcutaneous edema. 6. Hypertrophic changes along the joint line with moderate chondromalacia medial and lateral joint c ompartments. Outbridge grading:
[2023-10-07] MEDS: iohexol 350 mg/mL 500 mL Btl (per mL) PO (09:03)
[2023-10-07] MEDS: iohexol 350 mg/mL 500 mL Btl (per mL) IV (09:15)
--- NOTE | 2023-10-07 09:30 | CT_ITS ---
WS: [id number] CT ABDOMEN AND PELVIS WITH CONTRAST HISTORY: large pelvic mass, transaminitis, abdominal pain TECHNIQUE: Imaging performed of the abdomen and pelvis with IV contrast. Single phase imaging of the abdomen. Coronal and sagittal reformats are submitted. All CT scans at [facility] use at [address] one of these dose optimization techniques: automated exposure control; mA and/or kV adjustment per patient size (includes targeted exams where dose is matched to clinical indication); or iterative re construction. IV CONTRAST: Omnipaque 350; 100 mL IV. Oral contrast: Yes. DLP: 1460.48 mGy.cm COMPARISON: 01/07/2023 and 10/03/2021 Lower thorax: Lung bases are clear. Heart is normal size. No hiatal hernia. Liver/biliary system: Moderate hepatic steatosis and hepatomegaly. No bile duct dilatation. Gallbladder: Status post cholecystectomy. Pancreas: Normal size pancreas and pancreatic duct. No adjacent inflammation. Spleen: Normal size spleen. No mass or infarct. Adrenal glands: Normal. Right kidney: Normal. Left kidney: Normal. Aorta: Normal. Lymphadenopathy: None. Free fluid: None. GI tract: Unremarkable. Abdominal wall: Unremarkable abdominal wall. No hernia. Pelvis: No free fluid or adenopathy within the pelvis. Reidentified are bilateral ovarian cysts. Larg e LEFT ovarian cyst measures 8.7 x 8.2 cm and extends over a length of 9.8 cm. This cyst has been pre viously described and actually decreased in size since 2019. Smaller RIGHT ovarian cyst measures 5.6 x 4.0 x 6.0 cm. No solid component. No enhancing nodules. No ascites. Uterus is midline. Bones: Unremarkable. IMPRESSION: 1. No acute abdominal or pelvic abnormalities. 2. Bilateral ovarian cysts. Patient has a known large LEFT ovarian cyst which has been present on se veral prior examinations. Decreased in size since 2019. LEFT ovarian cyst measures 8.7 x 8.2 x 9.8 cm . Patient is at risk for ovarian torsion. 3. Smaller RIGHT ovarian cyst measures 5.6 x 4.0 x 6.0 cm. This cyst has increased in size since 01/07. 4. No free fluid. 5. Prior cholecystectomy. 6. Hepatic steatosis and hepatomegaly.
== END 2023-10-07 06:37 | disposition home or self-care (01) ==
LOC: RAD 06:37
PROVIDERS: PCP Family Medicine; Visit Provider Student in an Organized Health Care Education/Training Program
DX: M22.41 Chondromalacia patellae, right knee (principal); S83.206A Unspecified tear of unspecified meniscus, current injury, right knee, initial encounter; R19.00 Intra-abdominal and pelvic swelling, mass and lump, unspecified site; R16.0 Hepatomegaly, not elsewhere classified; N83.292 Other ovarian cyst, left side; N83.291 Other ovarian cyst, right side; K76.0 Fatty (change of) liver, not elsewhere classified; M13.861 Other specified arthritis, right knee; X58.XXXA Exposure to other specified factors, initial encounter; Y93.9 Activity, unspecified; Y92.9 Unspecified place or not applicable; Y99.9 Unspecified external cause status
CPT/HCPCS: 73721; 74177; Q9967

== ENCOUNTER 2023-10-12 12:59 | Emergency (ER) | payer MEDICARE, MEDICAID, SELFPAY ==
[2023-10-12 13:00] VITALS: BMI 53.1
[2023-10-12 13:03] VITALS: BP 140/90; PULSE 90; RESP 15; TEMP 36.5; O2SAT 95
--- NOTE | 2023-10-12 13:03 | W.ED.ABDPA2 ---
HPI - Abdominal Pain General: Chief Complaint: Abdominal Pain Stated Complaint: ABD PAIN Time Seen by Provider: 10/12/23 13:03 History of Present Illness: 38-year-old female comes in today with pelvic pain and discomfort. Patient is concerned that she may have a ovarian cyst/mass that may have ruptured or twisted her ovary. Patient had talked to her cancer doctor that recommended she be evaluated in the ER to rule this out. Patient appears nontoxic. Patient appears in mild to moderate pain. Review of the previous CT scan noted to ovarian cysts bilaterally that were up to 8 cm. We will arrange for ultrasound for further evaluation to rule out ovarian torsion. 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 Pain management contract signed Amenorrhea Asthma Spinal stenosis, thoracic region Morbid obesity with BMI of 60.0-69.9, adult Muscle spasms of both lower extremities Bilateral leg edema Bilateral chronic knee pain GERD (gastroesophageal reflux disease) Surgical History History of cholecystectomy Family History Father CAD (coronary artery disease) Diabetes Hypertension Seizures Bleeding disorder Hyperlipidemia Lung disease Psychiatric illness Stroke Family/Other Cancer Clotting disorder Hyperlipidemia Lung disease Psychiatric illness Stroke Mother Diabetes Hypertension Hyperlipidemia Lung disease Other Chronic kidney disease (CKD) Denies family history of Dementia Anesthesia complication Social History Smoking and tobacco/nicotine status: current every day tobacco/nicotine user cigarettes Packs smoked per day: 1.5 Years cigarettes smoked: 20 [ Other cigarette details: 2PPD, 30PY onset at 15yo] Quit status (tobacco/nicotine): considering quitting Second hand smoke exposure: Yes Alcohol intake: former Year of sobriety/quit date alcohol: 2017 Substance/Drug Use: former Date of last use: MJ quit in 2021 with new pain management Caregiver/support person: Yes Household members: spouse and family Marital status: Current occupational status: disabled Current occupation: disabled Special lacey needs: No Female Reproductive History: Date of last menstrual period: 10/09/23 Para: 1 Physical Exam Const: COMMON NORMALS: alert HENMT: COMMON NORMALS: normocephalic HEAD & SCALP: normocephalic Neck/C-Spine: COMMON NORMALS: full ROM Resp: COMMON NORMALS: normal respiratory effort Cardio: COMMON NORMALS: regular rate RATE: regular rate GI: COMMON NORMALS: Soft to palpation PALPATION: Yes Soft to palpation : COMMON NORMALS: Yes no CVA tenderness BLADDER/KIDNEY EXAM: Yes no CVA tenderness Back/Pelvis: COMMON NORMALS: no CVA tenderness Extremity: COMMON NORMALS: normal to inspection Neuro: SENSORIUM/ORIENTATION: Yes alert Skin: COMMON NORMALS: turgor normal GENERAL SKIN EXAM: turgor normal Course Vital Signs: Vital signs: Vital Signs Temperature 97.7 F 10/12/23 13:03 Pulse Rate 88 10/12/23 14:02 Respiratory Rate 15 10/12/23 13:03 Blood Pressure 135/88 10/12/23 14:02 Pulse Oximetry 93 10/12/23 14:02 Oxygen Delivery Me thod Room Air 10/12/23 14:02 MDM - Abdominal Pain Medical Decision Making 48-year-old female comes in today for concerns of ovarian cyst/mass that may have ruptured or causing ovarian torsion. On exam patient appears nontoxic. Patient appears in mild to moderate pain. Abdomen soft with some lower abdominal tenderness. Vital signs are normal. Differential diagnosis includes but not limited to ovarian torsion, ovarian cyst, ovarian cyst rupture, anxiety about health. CBC had some mild leukocytosis at 14,000. CMP was unremarkable. Ultrasound of the pelvis noted no torsion of the right ovary but the left ovary could not be visualized with confidence. Patient does have bilateral ovarian cysts. Review of the record has noted the cyst been there since 2019. Patient has no severe pain or discomfort. I strongly do not suspect ovarian torsion. Baby is up to chronic cysts that would need to be managed outpatient. Patient is stable and discharged to home with recommendations for follow-up with [facility]. Lab Data 10/12/23 12:47 10/12/23 12:47 Labs/Radiology: Radiology Impressions Pelvic/Transvag US 10/12/23 13:13 IMPRESSION: 1. Bilateral ovarian cysts. 2. The left ovarian tissue is not visualized with confidence. 3. The visualized right ovarian tissue has preserved blood flow with no findings of right ovarian torsion at the time of the examination. Laboratory Results WBC 14.95 10^3/uL (3.29-11.43) H 10/12/23 12:47 RBC 6.14 10^6/uL (3.85-5.65) H 10/12/23 12:47 Hgb 17.70 g/dL (11.27-16.99) H 10/12/23 12:47 Hct 54.3 % (36-47) H 10/12/23 12:47 MCV 88.4 fl (85-98) 10/12/23 12:47 MCH 28.8 pg (27-33) 10/12/23 12:47 MCHC 32.6 g/dL (30-55) 10/12/23 12:47 RDW 13.6 % (12.1-15.1) 10/12/23 12:47 Plt Count 314 10^3/cmm (157-399) 10/12/23 12:47 MPV 10.5 fL (7.4-10.4) H 10/12/23 12:47 Neut % (Auto) 72.7 % 10/12/23 12:47 Lymph % (Auto) 15.9 % 10/12/23 12:47 Pershing % (Auto) 6.8 % 10/12/23 12:47 Eos % (Auto) 2.0 % 10/12/23 12:47 Baso % (Auto) 0.7 % 10/12/23 12:47 Neut # (Auto) 10.86 10^3/uL (1.8-7.7) H 10/12/23 12:47 Lymph # (Auto) 2.4 10^3/uL (0.8-4.8) 10/12/23 12:47 Pershing # (Auto) 1.0 10^3/uL (0.2-0.9) H 10/12/23 12:47 Eos # (Auto) 0.3 10^3/uL (0.0-0.8) 10/12/23 12:47 Baso # (Auto) 0.1 10^3/uL (0.0-0.1) 10/12/23 12:47 Nucleated RBC % (auto) 0 % 10/12/23 12:47 Nucleated RBCs # 0.0 /100WBC 10/12/23 12:47 Sodium 140 mmol/L (136-145) 10/12/23 12:47 Potassium 4.0 mmol/L (3.5-5.1) 10/12/23 12:47 Chloride 102 mmol/L (98-107) 10/12/23 12:47 Carbon Dioxide 25 mmol/L (22-29) 10/12/23 12:47 Anion Gap 17.0 (5-19) 10/12/23 12:47 BUN 11 mg/dL (6-20) 10/12/23 12:47 Creatinine 0.7 mg/dL (0.5-0.9) 10/12/23 12:47 GFR Calculation 94.7 mL/min (90-130) 10/12/23 12:47 Glucose 164 mg/dL (65-115) H 10/12/23 12:47 Calculated Osmolality 293 mOsm/kg (285-295) 10/12/23 12:47 Calcium 9.7 mg/dL (8.5-10.5) 10/12/23 12:47 Total Bilirubin 0.4 mg/dL (0.15-1.2) 10/12/23 12:47 AST 16 U/L (0-32) 10/12/23 12:47 ALT 105 U/L (0-33) H 10/12/23 12:47 Alkaline Phosphatase 236 U/L (35-105) H 10/12/23 12:47 Total Protein 8.3 g/dL (6.6-8.7) 10/12/23 12:47 Albumin 4.2 g/dL (3.5-5.2) 10/12/23 12:47 Globulin 4.1 g/dL (1.3-4.6) 10/12/23 12:47 Lipase 29 U/L (13-60) 10/12/23 12:47 HCG, Qual Negative (Negative) 10/12/23 12:47 Urine Color Yellow (Yellow) 10/12/23 14:00 Urine Appearance Clear (CLEAR) 10/12/23 14:00 Urine pH 5 (5-7) 10/12/23 14:00 Ur Specific [place] 1.015 (1.005-1.030) 10/12/23 14:00 Urine Protein Neg (Negative) 10/12/23 14:00 Urine Glucose (UA) 4+ (Normal) H 10/12/23 14:00 Urine Ketones Negative (Negative) 10/12/23 14:00 Urine Blood 3+ (Negative) H 10/12/23 14:00 Urine Nitrate Negative (Negative) 10/12/23 14:00 Urine Bilirubin Neg (Negative) 10/12/23 14:00 Urine Urobilinogen 1 mg/dL (Negative) H 10/12/23 14:00 Ur Leukocyte Esterase Negative (Negative) 10/12/23 14:00 Urine RBC Rare /hpf (0-2) 10/12/23 14:00 Urine WBC 0-4 /hpf (0-5) H 10/12/23 14:00 Ur Squamous Epith Cells 0-4 /hpf (0-5) H 10/12/23 14:00 Amorphous Sediment Not Reportable 10/12/23 14:00 Urine Bacteria Trace /hpf (NONE) 10/12/23 14:00 Urine Yeast 2+ /hpf H 10/12/23 14:00 All radiology interpretation(s) finalized by discharge Discharge Plan Discharge Patient Disposition: Home Clinical Impression: Ovarian cyst Qualifiers: Laterality: bilateral Qualified Code(s): N83.201 - Unspecified ovarian cyst, right side Condition: Stable Prescriptions: No Action (DME) [employer] G4 Transmitter Device See Rx Instructions .Route Rx Instructions: As directed gabapentin 300 mg capsule 300 mg PO BID ferrous gluconate 324 mg (37.5 mg iron) tablet 324 mg PO .q48 Qty: 90 3RF (DME) Omnipod 5 G6 Pods (Gen 5) Cartridge See Rx Instructions .Route Qty: 5 2RF Rx Instructions: As directed mirtazapine 15 mg tablet 15 mg PO .HS Qty: 30 2RF buspirone 10 mg tablet 20 mg PO TID Qty: 180 2RF citalopram 40 mg tablet 40 mg PO DAILY Qty: 90 0RF propranolol 20 mg tablet 20 mg PO BID PRN (Reason: anxiety) Qty: 60 2RF oxycodone 5 mg capsule 5 mg PO TID PRN (DME) ASO to the Left Ankle See Rx Instructions .Route .MEDSUPPLY Qty: 1 0RF Rx Instructions: As directed ciclopirox 0.77 % cream 1 applic topical BID 28 Days Qty: 30 0RF Rx Instructions: Apply to hands twice daily for 4 weeks (DME) Diabetic shoes with 3 sets of inserts See Rx Instructions .Route .MEDSUPPLY Qty: 1 0RF Rx Instructions: As directed HOME (DME) lancets [Accu-Chek Fastclix Lancet Drum] Misc See Rx Instructions .ROUTE .MEDSUPPLY Qty: 100 1RF Rx Instructions: TWICE DAILY (DME) FreeStyle Zackery 2 Sensor Kit See Rx Instructions .ROUTE .MEDSUPPLY Qty: 2 3RF Rx Instructions: monitors blood sugars (DME) FreeStyle Zackery 2 [place] Misc See Rx Instructions .ROUTE .MEDSUPPLY Qty: 1 0RF Rx Instructions: used to read sensers clobetasol 0.05 % ointment 1 applic topical BID 14 Days Qty: 60 1RF Rx Instructions: Apply to palm & trunk. Use for no more than 2 weeks per month. Not for use on face/skin folds. insulin aspart U-100 [Novolog FlexPen U-100 Insulin] 100 unit/mL (3 mL) insulin pen 10 unit SUBCUT TID Qty: 27 3RF spironolactone 50 mg tablet 50 mg PO DAILY Qty: 90 3RF (DME) hinged knee brace See Rx Instructions .Route .MEDSUPPLY Qty: 1 0RF Rx Instructions: As directed (DME) 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 meter [Accu-Chek Guide Glucose Meter] Misc See Rx Instructions .Route Qty: 1 0RF Rx Instructions: As directed (DME) lancets [Accu-Chek Softclix Lancets] Misc See Rx Instructions .Route Qty: 100 0RF Rx Instructions: As directed (DME) Accu-Chek Guide test strips Strip See Rx Instructions .ROUTE .COMPLEX Qty: 200 0RF Dose Instruction: check UP TO TWICE DAILY Rx Instructions: check UP TO TWICE DAILY (DME) Dexcom G7 Sensor Device See Rx Instructions .Route Qty: 9 0RF Rx Instructions: As directed (DME) Dexcom G7 Toilet And Laundry Soap Supervisor Misc See Rx Instructions .Route Qty: 1 0RF Rx Instructions: As directed montelukast [Singulair] 10 mg tablet 10 mg PO DAILY Qty: 90 1RF omeprazole 40 mg capsule,delayed release(DR/EC) 40 mg PO BID PRN (Reason: acid reflux) Qty: 180 1RF potassium chloride 20 mEq tablet extended release 20 meq PO DAILY Qty: 90 1RF furosemide 40 mg tablet See Rx Instructions .ROUTE .COMPLEX Qty: 95 2RF Dose Instruction: TAKE 1 TABLET BY MOUTH TWICE DAILY for 5 days THEN decrease TO ONE EVERY DAY thereafter Rx Instructions: TAKE 1 TABLET BY MOUTH TWICE DAILY for 5 days THEN decrease TO ONE EVERY DAY thereafter Jardiance 25 mg tablet 25 mg PO DAILY Qty: 90 0RF Mounjaro 15 mg/0.5 mL pen injector See Rx Instructions .ROUTE .COMPLEX Qty: 2 1RF Dose Instruction: INJECT 15MG SUBCUTANEOUSLY every week Rx Instructions: INJECT 15MG SUBCUTANEOUSLY every week albuterol sulfate 90 mcg/actuation HFA aerosol inhaler See Rx Instructions .ROUTE .COMPLEX Qty: 8.5 5RF Dose Instruction: inhale TWO puffs BY MOUTH EVERY 6 HOURS as needed for SHORTNESS OF BREATH or wheezing Rx Instructions: inhale TWO puffs BY MOUTH EVERY 6 HOURS as needed for SHORTNESS OF BREATH or wheezing budesonide-formoterol [Symbicort] 160-4.5 mcg/actuation HFA aerosol inhaler See Rx Instructions .ROUTE .COMPLEX Qty: 10.2 2RF Dose Instruction: inhale TWO puffs BY MOUTH TWICE DAILY FOR copd Rx Instructions: inhale TWO puffs BY MOUTH TWICE DAILY FOR copd (DME) pen needle, diabetic [TechLITE Pen Needle] 32 gauge x 1/4 needle See Rx Instructions .ROUTE .COMPLEX Qty: 300 3RF Dose Instruction: USE THREE TIMES DAILY Rx Instructions: USE THREE TIMES DAILY Imitrex 25 mg tablet See Rx Instructions .ROUTE .COMPLEX PRN (Reason: Migraine Headache) Qty: 30 1RF Rx Instructions: TAKE 1 TABLET BY MOUTH EVERY 2 HOURS NEEDED FOR MIGRAINE HEADACHE. MAX OF FOUR TABLETS PER 24 HOURS venlafaxine 150 mg capsule,extended release 24hr See Rx Instructions .ROUTE .COMPLEX Qty: 30 2RF Dose Instruction: TAKE ONE CAPSULE BY MOUTH EVERY DAY Rx Instructions: TAKE ONE CAPSULE BY MOUTH EVERY DAY Discharge Orders: Discharge ED (Routine); Ordered 10/12/23 Ordered By: Herb Nathan Referrals: Martínez Lovelace MD [Primary Care Provider] - Discharge Diet: Usual diet Discharge Activity: Increase activity as tolerated Patient Instructions: Ovarian Cyst (ED) Activity Restrictions/Additional Instructions: Follow-up with primary care or [facility] for further treatment and evaluation of ovarian cyst. Coding Level of Care Code ED Information Assurance Manager for Leonela Escobedo
[2023-10-12 13:12] LABS: Basophils # 0.1 10^3/uL (0.0-0.1); Basophils % 0.7 %; Eosinophils # 0.3 10^3/uL (0.0-0.8); Hematocrit 54.3 % (36-47); Lymphocytes # 2.4 10^3/uL (0.8-4.8); Lymphocytes % 15.9 %; Mean Corpuscular HGB Conc 32.6 g/dL (30-55); Mean Corpuscular Hemoglobin 28.8 pg (27-33); Mean Corpuscular Volume 88.4 fl (85-98); Mean Platelet Volume 10.5 fL (7.4-10.4); Monocytes % 6.8 %; Neutrophils # 10.86 10^3/uL (1.8-7.7); Neutrophils % 72.7 %; Nucleated Red Blood Cells % 0 %; Platelet Count 314 10^3/cmm (157-399); Red Blood Count 6.14 10^6/uL (3.85-5.65); Red Cell Distribution Width 13.6 % (12.1-15.1); White Blood Count 14.95 10^3/uL (3.29-11.43)
--- NOTE | 2023-10-12 13:13 | USR_ITS ---
PROCEDURE INFORMATION: Exam: US Nonobstetric Pelvis; Complete Exam date and time: 10/12/2023 2:10 PM Age: 38 years old Clinical indication: Pelvic pain; Additional info: Ovarian cyst, pain, R/O torsion TECHNIQUE: Imaging protocol: Transabdominal pelvic nonobstetric ultrasound. Complete exam. Real time ultrasound with image documentation. COMPARISON: US transvaginal [id number] 05/26/2020 10:25 PM FINDINGS: Uterus: Uterus is normal. Endometrial stripe is normal measuring 4.7 mm. The uterus measures 12 x 4.5 x 6.9 cm. Cervix: There are nabothian cysts. Right ovary/adnexa: The right ovarian tissue has preserved blood flow. There is an anechoic lesion in the right ovary measuring 5.7 x 5 x 5.1 cm. Normal blood flow. Left ovary/adnexa: Left ovarian tissue is not visualized with confidence. There is an anechoic lesion in the left ovary measuring 10.3 x 7.8 x 9.8 cm. Normal blood flow. Intraperitoneal space: Mild intraperitoneal fluid in the cul-de-sac. Urinary bladder: Normal. Other findings: Limited exam due to the patient's body habitus. US/US pelv w/transvag [id number] IMPRESSION: 1. Bilateral ovarian cysts. 2. The left ovarian tissue is not visualized with confidence. 3. The visualized right ovarian tissue has preserved blood flow with no findings of right ovarian torsion at the time of the examination.
[2023-10-12 13:27] LABS: HCG, Serum Qual Negative (Negative)
[2023-10-12 13:36] LABS: Alanine Aminotransferase 105 U/L (0-33); Albumin Level 4.2 g/dL (3.5-5.2); Alkaline Phosphatase 236 U/L (35-105); Aspartate Amino Transferase 16 U/L (0-32); Blood Urea Nitrogen 11 mg/dL (6-20); Calcium 9.7 mg/dL (8.5-10.5); Carbon Dioxide 25 mmol/L (22-29); Chloride 102 mmol/L (98-107); Creatinine Clr Calc Pharmacy 150.6154; Globulin 4.1 g/dL (1.3-4.6); Glomerular Filtration Rate 94.7 mL/min (90-130); Glucose 164 mg/dL (65-115); Lipase 29 U/L (13-60); Osmolality Calculated 293 mOsm/kg (285-295); Sodium 140 mmol/L (136-145); Total Bilirubin 0.4 mg/dL (0.15-1.2); Total Protein 8.3 g/dL (6.6-8.7)
[2023-10-12 14:02] VITALS: BP 135/88; PULSE 88; O2SAT 93
[2023-10-12] MEDS: oxyCODONE 5 mg IR Tab/Cap 10 MG PO (14:17)
[2023-10-12 14:19] LABS: Add Urine Microscopic? YES; Bacteria Urine TRACE /hpf; Bilirubin Urine Neg (Negative); Blood Urine 3+ (Negative); Glucose Urine UA 4+ (Normal); Ketones Urine Negative (Negative); Leukocyte Esterase Urine Negative (Negative); Nitrate Urine Negative (Negative); Protein Urine Neg (Negative); RBC Urine RARE /hpf (0-2); Specific Gravity, Urine 1.015 (1.005-1.030); Squamous Epithelial Cell Urine 0-4 /hpf (0-5); Urine Appearance Clear (CLEAR); Urine Color Yellow (Yellow); Urobilinogen Urine 1 mg/dL (Negative); WBC Urine 0-4 /hpf (0-5); pH Urine 5 (5-7)
[2023-10-12 14:20] LABS: Add Urine Culture? Yes
[2023-10-12 15:19] VITALS: BP 125/80; PULSE 86; O2SAT 96
== END 2023-10-12 15:15 | disposition home or self-care (01) ==
PROVIDERS: Emergency Medicine; Emergency Provider Nurse Practitioner Family; PCP Family Medicine
DX: N83.201 Unspecified ovarian cyst, right side (principal); Z79.4 Long term (current) use of insulin; F17.210 Nicotine dependence, cigarettes, uncomplicated; E11.9 Type 2 diabetes mellitus without complications; E78.5 Hyperlipidemia, unspecified
CPT/HCPCS: 76830; 76856; 80053; 81001; 83690; 84703; 85025; 87086; 99284

== ENCOUNTER 2023-10-28 13:42 | Outpatient (CLI) | payer MEDICARE, OTHER, SELFPAY ==
[2023-10-28 14:18] LABS: Alanine Aminotransferase 66 U/L (0-33); Alkaline Phosphatase 206 U/L (35-105); Blood Urea Nitrogen 18 mg/dL (6-20); Calcium 9.3 mg/dL (8.5-10.5); Carbon Dioxide 23 mmol/L (22-29); Chloride 101 mmol/L (98-107); Chol HDL Ratio 4.61 mg/dL (0.0-4.40); Cholesterol 235 mg/dL (0-200); Globulin 4.4 g/dL (1.3-4.6); Glomerular Filtration Rate 81.2 mL/min (90-130); Glucose 113 mg/dL (65-115); HDL Cholesterol 51 mg/dL (60-100); LDL Cholesterol Calculated 142 mg/dL (50-129); LDL HDL Ratio 2.78 RATIO (0.00-3.22); Osmolality Calculated 287 mOsm/kg (285-295); Sodium 137 mmol/L (136-145); Total Bilirubin 0.5 mg/dL (0.15-1.2); Total Protein 8.4 g/dL (6.6-8.7); Triglycerides 211 mg/dL (0-150)
[2023-10-28 14:19] LABS: Anion Gap 17.4 (5-19); Aspartate Amino Transferase 52 U/L (0-32); Potassium 4.4 mmol/L (3.5-5.1)
[2023-10-28 14:21] LABS: Creatinine Urine, Random 91 mg/dL (28-217); Microalbumin Random Urine 4 ug/dL (0-20)
[2023-10-28 14:22] LABS: Microalbum Creatinine Ratio Ur 44 mg/dL (0-20)
[2023-10-28 14:22] LABS: Estmated Average Glucose 140; Hemoglobin A1C 6.5 % (4.0-6.0)
== END 2023-10-28 13:43 | disposition home or self-care (01) ==
LOC: LAB 13:44
PROVIDERS: PCP Family Medicine; Visit Provider Internal Medicine
DX: E11.9 Type 2 diabetes mellitus without complications (principal); Z79.891 Long term (current) use of opiate analgesic; Z79.4 Long term (current) use of insulin; I10 Essential (primary) hypertension; M48.04 Spinal stenosis, thoracic region; R20.0 Anesthesia of skin; F17.210 Nicotine dependence, cigarettes, uncomplicated; Z98.890 Other specified postprocedural states
CPT/HCPCS: 36415; 80053; 80061; 82044; 83036; 99214

== ENCOUNTER → 2023-10-31 10:53 | Outpatient (BNVA) | payer MEDICARE, OTHER, SELFPAY | PROVIDERS: PCP Family Medicine; Visit Provider Internal Medicine | DX: Z79.4 Long term (current) use of insulin; E78.2 Mixed hyperlipidemia; K76.0 Fatty (change of) liver, not elsewhere classified; E11.40 Type 2 diabetes mellitus with diabetic neuropathy, unspecified; R74.01 Elevation of levels of liver transaminase levels; Z79.85 Long-term (current) use of injectable non-insulin antidiabetic drugs | CPT/HCPCS: 99214 ==

== ENCOUNTER → 2023-11-06 12:18 | Outpatient (BNVA) | payer MEDICARE, MEDICAID, SELFPAY | PROVIDERS: PCP Family Medicine; Visit Provider Student in an Organized Health Care Education/Training Program | DX: S83.206A Unspecified tear of unspecified meniscus, current injury, right knee, initial encounter; Z68.43 Body mass index [BMI] 50.0-59.9, adult; X58.XXXA Exposure to other specified factors, initial encounter | CPT/HCPCS: 99214 ==

== ENCOUNTER 2023-11-21 06:52 | Outpatient (CLI) | payer MEDICARE, MEDICAID, SELFPAY ==
[2023-11-21 07:39] LABS: Add Urine Microscopic? NO; Charge for UA Resulting for Rev
[2023-11-21 07:42] LABS: Basophils # 0.1 10^3/uL (0.0-0.1); Basophils % 0.6 %; Eosinophils # 0.2 10^3/uL (0.0-0.8); Eosinophils % 1.5 %; Hematocrit 50.2 % (36-47); Lymphocytes # 2.7 10^3/uL (0.8-4.8); Lymphocytes % 17.2 %; Mean Corpuscular HGB Conc 33.3 g/dL (30-55); Mean Corpuscular Hemoglobin 28.1 pg (27-33); Mean Corpuscular Volume 84.5 fl (85-98); Mean Platelet Volume 10.9 fL (7.4-10.4); Monocytes # 1.3 10^3/uL (0.2-0.9); Neutrophils # 11.07 10^3/uL (1.8-7.7); Neutrophils % 71.2 %; Nucleated Red Blood Cells % 0 %; Platelet Count 324 10^3/cmm (157-399); Red Blood Count 5.94 10^6/uL (3.85-5.65); Red Cell Distribution Width 13.2 % (12.1-15.1); White Blood Count 15.57 10^3/uL (3.29-11.43)
[2023-11-21 07:47] LABS: Bilirubin Urine Neg (Negative); Blood Urine Neg (Negative); Glucose Urine UA 4+ (Normal); Ketones Urine Negative (Negative); Leukocyte Esterase Urine Negative (Negative); Nitrate Urine Negative (Negative); Protein Urine Neg (Negative); Urine Appearance Clear (CLEAR); Urine Color Yellow (Yellow); Urobilinogen Urine Neg (Negative); pH Urine 6 (5-7)
[2023-11-21 08:11] LABS: Alanine Aminotransferase 15 U/L (0-33); Albumin Level 3.9 g/dL (3.5-5.2); Alkaline Phosphatase 122 U/L (35-105); Anion Gap 18.6 (5-19); Aspartate Amino Transferase 8 U/L (0-32); Blood Urea Nitrogen 17 mg/dL (6-20); Calcium 8.8 mg/dL (8.5-10.5); Carbon Dioxide 20 mmol/L (22-29); Chloride 102 mmol/L (98-107); Creatinine Clr Calc Pharmacy 150.6154; Globulin 3.4 g/dL (1.3-4.6); Glomerular Filtration Rate 94.7 mL/min (90-130); Glucose 227 mg/dL (65-115); Osmolality Calculated 291 mOsm/kg (285-295); Potassium 4.6 mmol/L (3.5-5.1); Sodium 136 mmol/L (136-145); Total Bilirubin 0.3 mg/dL (0.15-1.2); Total Protein 7.3 g/dL (6.6-8.7)
== END 2023-11-21 06:53 | disposition home or self-care (01) ==
LOC: RAD 06:53
PROVIDERS: Student in an Organized Health Care Education/Training Program; PCP Family Medicine; Visit Provider Orthopaedic Surgery
DX: Z01.818 Encounter for other preprocedural examination
CPT/HCPCS: 80053; 81003; 85025

== ENCOUNTER 2023-12-10 15:26 | Outpatient (CLI) | payer MEDICARE, MEDICAID, SELFPAY ==
--- NOTE | 2023-12-10 15:27 | MR_ITS ---
WS: [id number] MRI THORACIC SPINE noncontrast HISTORY: Chronic back pain. COMPARISON: 01/30/2023 TECHNIQUE: Multiplanar sequences are performed in sagittal and axial planes. Quality of this examination is compromised by body habitus. Reidentified is a high-grade stenosis at T10-11 with narrowing of the thoracic cord and myelomalacia extending over a length of approximately 7 mm. Bilateral facet joint arthritis encroaching upon the p osterior lateral thecal sac, RIGHT greater than LEFT. Moderate central and bilateral foraminal stenos is at T10-11. Small central disc protrusion at T4-5 with very slight contact upon the ventral thecal sac. T8-9: Small RIGHT paracentral disc protrusion. Disc protrusion contacts the ventral thecal sac. Paraspinal soft tissues are negative. No fractures or marrow edema. IMPRESSION: 1. Moderate central and bilateral foraminal stenosis at T10-11 as described on the prior studies due to facet disease and disc disease. There does appear to be slight progression of the central stenosi s since 01/30/2023. 2. Focal cord myelomalacia at the T10-11 level is unchanged.
== END 2023-12-10 15:27 | disposition home or self-care (01) ==
LOC: RAD 15:27
PROVIDERS: PCP Family Medicine; Visit Provider Orthopaedic Surgery
DX: M54.9 Dorsalgia, unspecified (principal); M48.02 Spinal stenosis, cervical region
CPT/HCPCS: 72146

== ENCOUNTER 2023-12-17 08:59 | Day surgery (SDC) | payer MEDICARE, MEDICAID, SELFPAY ==
[2023-12-17] VITALS (10 sets, daily range): BP systolic 127–158; BP diastolic 77–100; PULSE 87–98; RESP 16–19; TEMP 36.1–36.5; O2SAT 91–97; BMI 53.6
[2023-12-17 09:47] LABS: OR HCG Qualitative Urine Negative (Negative)
[2023-12-17] MEDS: sodium chloride 0.9% 1,000 ML 30 ML IV (10:18)
[2023-12-17] MEDS: scopolamine 1.5 Patch 1 PATCH TRANSDERMA (10:20)
[2023-12-17] MEDS: fentaNYL 50 mcg/mL INJ 2mL IVP (10:31)
--- NOTE | 2023-12-17 10:36 | P.ANESASSM_ITS ---
Pre-Anesthetic Assessment Height/Weight: Height 1.6 m Weight 137.438 kg Temp Pulse Resp BP Pulse Ox O2 Del Method 97.1 F L 92 18 158/96 95 Room Air 12/17/23 09:45 12/17/23 09:45 12/17/23 09:45 12/17/23 09:45 12/17/23 09:45 12/17/23 10:15 Operation Date: 12/17/23 12:25 Proposed Procedures p Knee Arthroscopy Knee Arthroscopy w/ partial Medial Menisectomy VS. Repair(Right) - Cruz Zhong DO s Excision Mass/Lesion Lower possible parameniscal cyst decompression(Right) - Cruz Zhong DO Familial anesthetic complications: none Was Beta Sarah taken within 24 hours: Yes Was Clonidine taken within 24 hours: N/A Last intake: Intake Last Liquid Date 12/16/23 Last Liquid Time 23:00 Last Solid Date 12/16/23 Last Solid Time 18:00 Social Tobacco and No alcohol Exam alert, oriented x 3 and regular rate & rhythm Airway Submandibular: within normal limits Cervical ROM: within normal limits Mallampati: Class II Dentition: false Pulmonary Asthma, Chronic Obstructive Pulmonary Disease and Sleep Apnea CV/HEM Anemia and Hypertension GI Gastroesophageal Reflux Disease Metabolic Diabetes Mellitus and Morbid Obesity Neuropsych Anxiety and Depression Anesthetic Plan ASA status: 3 Anesthesia: General Medications/Allergies Home Medications Medication Instructions Recorded Confirmed Last Taken Type lancets (Accu-Chek Fastclix Lancet #100 ea 04/18/20 11/21/23 Unknown Rx Drum) flash glucose scanning reader #1 ea 11/15/20 11/21/23 Unknown Rx (FreeStyle Zackery 2 Folcroft) flash glucose sensor (FreeStyle #2 ea 11/15/20 11/21/23 Unknown Rx Zackery 2 Sensor kit) 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 transmitter (Dexcom 12/17/21 11/21/23 Unknown History G4 Transmitter device) ASO to the Left Ankle #1 ea 05/16/22 11/21/23 Unknown Rx gabapentin 300 mg capsule 300 mg PO BID 07/12/22 12/17/23 12/17/23 History ciclopirox 0.77 % topical cream 1 applic topical BID 4 weeks #30 07/15/22 12/17/23 10/09/23 Rx grams clobetasol 0.05 % topical ointment 1 applic topical BID 2 weeks #60 09/11/22 12/17/23 10/09/23 Rx grams Diabetic shoes with 3 sets of #1 ea 09/25/22 11/21/23 Unknown Rx inserts hinged knee brace #1 ea 12/26/22 11/21/23 Unknown Rx 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 meter (Accu-Chek #1 ea 01/02/23 11/21/23 Unknown Rx Guide Glucose Meter) lancets (Accu-Chek Softclix #100 ea 01/02/23 11/21/23 Unknown Rx Lancets) blood sugar diagnostic (Accu-Chek #200 strips 04/04/23 11/21/23 Unknown Rx Guide test strips) insulin pump cart,automated,BT #5 ea 04/07/23 11/21/23 Unknown Rx (Omnipod 5 G6 Pods (Gen 5) subcutaneous cartridge) 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 meter,continuous #1 ea 04/28/23 11/21/23 Unknown Rx (Dexcom G7 Auto Damage Appraiser) 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 sensor (Dexcom G7 #9 ea 04/28/23 11/21/23 Unknown Rx Sensor device) furosemide 40 mg tablet See Rx Instructions .Route 05/21/23 12/17/23 12/16/23 Rx .COMPLEX #95 ea oxycodone 5 mg capsule 5 mg PO TID PRN Back Pain 08/18/23 12/17/23 12/16/23 History albuterol sulfate 90 mcg/actuation See Rx Instructions .Route 09/03/23 12/17/23 12/10/23 Rx aerosol inhaler .COMPLEX #8.5 grams buspirone 10 mg tablet 20 mg (2 x 10 mg) PO TID #180 tabs 09/18/23 12/17/23 12/16/23 Rx citalopram 40 mg tablet 40 mg PO DAILY #90 tabs 09/18/23 12/17/23 12/16/23 Rx mirtazapine 15 mg tablet 15 mg PO .HS #30 tabs 09/18/23 12/17/23 12/16/23 Rx propranolol 20 mg tablet 20 mg PO BID PRN anxiety #60 tabs 09/18/23 12/17/23 12/16/23 Rx tirzepatide 15 mg/0.5 mL See Rx Instructions .Route 10/17/23 12/17/23 12/11/23 Rx subcutaneous pen injector .COMPLEX #2 mL (Mounjaro) montelukast 10 mg tablet 10 mg PO DAILY #90 tabs 10/28/23 12/17/23 12/16/23 Rx (Singulair) omeprazole 40 mg capsule,delayed 40 mg PO BID PRN acid reflux #180 10/28/23 12/17/23 12/16/23 Rx release caps potassium chloride 20 mEq See Rx Instructions .Route 10/28/23 12/17/23 12/16/23 Rx tablet,extended release .COMPLEX #90 tabs empagliflozin 25 mg tablet See Rx Instructions .Route 11/15/23 12/17/23 12/13/23 Rx (Jardiance) .COMPLEX #30 tabs insulin glargine 100 unit/mL (3 10 unit (0.1 mL) SUBCUT DAILY #15 11/24/23 12/17/23 12/16/23 Rx mL) subcutaneous pen (Lantus mL Solostar U-100 Insulin) insulin aspart U-100 100 unit/mL See Rx Instructions .Route 11/28/23 12/17/23 12/16/23 Rx (3 mL) subcutaneous pen (Novolog .COMPLEX #27 mL FlexPen U-100 Insulin aspart) spironolactone 50 mg tablet 50 mg PO DAILY #90 tabs 12/08/23 12/17/23 12/16/23 Rx sumatriptan succinate 25 mg tablet See Rx Instructions .Route 12/08/23 12/17/23 12/03/23 Rx (Imitrex) .COMPLEX PRN Migraine Headache #30 tabs venlafaxine 150 mg See Rx Instructions .Route 12/08/23 12/17/23 12/16/23 Rx capsule,extended release 24 hr .COMPLEX #30 caps budesonide-formoterol HFA 160 See Rx Instructions .Route 12/10/23 12/17/23 12/16/23 Rx mcg-4.5 mcg/actuation aerosol .COMPLEX #10.2 grams inhaler (Symbicort) pen needle, diabetic 31 gauge x #300 ea 12/15/23 Unknown Rx 11/21 (Droplet Pen Needle) Allergies Allergy/AdvReac Type Severity Reaction Status Date / Time atorvastatin Allergy Severe transaminit Verified 12/16/23 11:48 is ibuprofen Allergy Mild ALGY-Swell Verified 12/16/23 11:48 Lip/Tongue/Throat acetaminophen [From Tylenol] Allergy liver Verified 12/16/23 11:48 reaction diclofenac Allergy ADR-Vomitin Verified 12/16/23 11:48 g ketorolac [From Toradol] Allergy sick Verified 12/16/23 11:48 Current Medications Generic Name Dose Route Start Last Admin Trade Name Freq PRN Reason Stop Dose Admin Fentanyl 50 mcg 12/17/23 09:31 12/17/23 10:31 Fentanyl 50 Mcg/Ml Inj 2ml IVP 50 mcg Q10M PRN Administration Preop Pain Sodium Chloride 1,000 mls @ 30 mls/hr 12/17/23 09:45 12/17/23 10:18 Sodium Chloride 0.9% IV 12/18/23 09:44 30 mls/hr .Q24H MARY Administration PFSH Anesthesia Medical History Chronic anemia Migraine JESSE (iron deficiency anemia) Tobacco use disorder DHEERAJ (obstructive sleep apnea) Atypical chest pain Type 2 diabetes mellitus, with long-term current use of insulin Dyslipidemia long-term (current) use of opiate analgesic Pain management contract signed Amenorrhea Asthma Spinal stenosis, thoracic region Morbid obesity with BMI of 60.0-69.9, adult Muscle spasms of both lower extremities Bilateral leg edema Bilateral chronic knee pain GERD (gastroesophageal reflux disease) Surgical History History of cholecystectomy Family History Father CAD (coronary artery disease) Diabetes Hypertension Seizures Bleeding disorder Hyperlipidemia Lung disease Psychiatric illness Stroke Family/Other Cancer Clotting disorder Hyperlipidemia Lung disease Psychiatric illness Stroke Mother Diabetes Hypertension Hyperlipidemia Lung disease Other Chronic kidney disease (CKD) Denies family history of Dementia Anesthesia complication Social History Smoking and tobacco/nicotine status: current every day tobacco/nicotine user cigarettes Packs smoked per day: 2 Years cigarettes smoked: 20 [ Other cigarette details: 2PPD, 30PY onset at 15yo] Quit status (tobacco/nicotine): considering quitting Second hand smoke exposure: Yes Alcohol intake: former Year of sobriety/quit date alcohol: 2016 Substance/Drug Use: former Date of last use: MJ quit in 2021 with new pain management Caregiver/support person: Yes Household members: spouse and family Marital status: Current occupational status: disabled Current occupation: disabled Special lacey needs: No Female Reproductive History Para: 1 Data Anesthesia Cardiac Studies: Sestamibi Stress Test (Cardiology) 01/28
--- NOTE | 2023-12-17 10:43 | P.HP_ITS ---
Same Day Surgery H&P Indication for Procedure/HPI DATE OF PROCEDURE: December 17, 2023 CHIEF COMPLAINT/INDICATIONFOR SURGICAL PROCEDURE: Right knee medial meniscus tear, parameniscal cyst PREOP DIAGNOSIS: Right knee medial meniscus tear, parameniscal cyst PLANNED PROCEDURE: Operation Date: 12/17/23 12:25 Proposed Procedures p Knee Arthroscopy Knee Arthroscopy w/ partial Medial Menisectomy VS. Repair(Right) - Cruz Zhong DO s Excision Mass/Lesion Lower possible parameniscal cyst decompression(Right) - Cruz Zhong DO Medications/Allergies* Home Medications Medication Instructions Recorded Confirmed Type 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 transmitter (Dexcom 12/17/21 11/21/23 History G4 Transmitter device) gabapentin 300 mg capsule 300 mg PO BID 07/12/22 12/17/23 History oxycodone 5 mg capsule 5 mg PO TID PRN Back Pain 08/18/23 12/17/23 History Allergies/Adverse Reactions Allergy/AdvReac Type Severity Reaction Status Date / Time atorvastatin Allergy Severe transaminit Verified 12/16/23 11:48 is ibuprofen Allergy Mild ALGY-Swell Verified 12/16/23 11:48 Lip/Tongue/Throat acetaminophen [From Tylenol] Allergy liver Verified 12/16/23 11:48 reaction diclofenac Allergy ADR-Vomitin Verified 12/16/23 11:48 g ketorolac [From Toradol] Allergy sick Verified 12/16/23 11:48 Current Medications: Generic Name Dose Route Start Last Admin Trade Name Freq PRN Reason Stop Dose Admin Fentanyl 50 mcg 12/17/23 09:31 12/17/23 10:31 Fentanyl 50 Mcg/Ml Inj 2ml IVP 50 mcg Q10M PRN Administration Preop Pain Sodium Chloride 1,000 mls @ 30 mls/hr 12/17/23 09:45 12/17/23 10:18 Sodium Chloride 0.9% IV 12/18/23 09:44 30 mls/hr .Q24H MARY Administration Pertinent History/Comorbid Conditions* Medical History (Updated 11/10/23 @ 22:39 by Cruz Zhong DO) Chronic anemia Migraine JESSE (iron deficiency anemia) Tobacco use disorder DHEERAJ (obstructive sleep apnea) Atypical chest pain Type 2 diabetes mellitus, with long-term current use of insulin Dyslipidemia [facility] (current) use of opiate analgesic Pain management contract signed Amenorrhea Asthma Spinal stenosis, thoracic region Morbid obesity with BMI of 60.0-69.9, adult Muscle spasms of both lower extremities Bilateral leg edema Bilateral chronic knee pain GERD (gastroesophageal reflux disease) Surgical History (Updated 02/27/23 @ 14:15 by Bacilio Kirk PA-C) History of cholecystectomy Family History (Updated 07/12/22 @ 13:15 by Mone Diamond LPN) Diabetes Father Mother CAD (coronary artery disease) Father Clotting disorder Family/Other Hyperlipidemia Father Family/Other Mother Psychiatric illness Father Family/Other Chronic kidney disease (CKD) Seizures Father Bleeding disorder Father Lung disease Father Family/Other Mother Cancer Family/Other Hypertension Father Mother Stroke Father Family/Other Denies family history of Dementia Anesthesia complication Social History Smoking and tobacco/nicotine status: current every day tobacco/nicotine user cigarettes Packs smoked per day: 2 Years cigarettes smoked: 20 [ Other cigarette details: 2PPD, 30PY onset at 15yo] Quit status (tobacco/nicotine): considering quitting Second hand smoke exposure: Yes Alcohol intake: former Year of sobriety/quit date alcohol: 2016 Substance/Drug Use: former Date of last use: MJ quit in 2021 with new pain management Caregiver/support person: Yes Household members: spouse and family Marital status: Current occupational status: disabled Current occupation: disabled Special lacey needs: No Pertinent Exam Findings alert, oriented x 3, operative site marked and procedure specific exam findings Please refer to previous office note on 11/06/2023 for detailed orthopedic examination: Right Knee Exam: ROM 0 to greater than 120 degrees Guarded and pain at End ROM Medial joint line tenderness to palpation Lateral joint line tenderness to palpation Mild joint effusion-deviated Positive Jessee's Negative Joseluis's Stable Varus and Valgus stress Gross motor sensory intact Recommendations Surgery/Procedure today Other Plans: Plan to proceed to the OR today for right knee diagnostic and surgical arthroscopy with partial medial meniscectomy versus repair and possible parameniscal cyst decompression. Patient understands the ins and outs of the procedure the risk benefits alternatives of surgery risk of surgery include not limited to make a better make it worse injury to nerves vessels or tendons, persistent pain infection decreased range of motion. Understanding risk of surgery elects to proceed all questions have been answered at this time. Coding Level of Care Code Acute Code for g Fwd
[2023-12-17 10:53] LABS: Glucose Point of Care 157 mg/dL (70-110)
[2023-12-17] MEDS: ceFAZolin 3,000 MG in sodium chloride 0.9% (plus) 100 ML 200 MG IV (12:27)
[2023-12-17] MEDS: lidocaine-epi 1% 20 mL INJ 40 ML INJECTION (13:00)
--- NOTE | 2023-12-17 13:28 | P.BOP_ITS ---
Date of Procedure: 12/17/2023 Surgeon: Cruz Zhong DO Computer Graphic Designer(s): VANITA Garay Procedure(s) performed: Right knee diagnostic and surgical arthroscopy with partial medial meniscectomy Right knee diagnostic and surgical arthroscopy with partial lateral meniscectomy Right knee diagnostic and surgical arthroscopy with loose body removal greater than 1 cm Right knee diagnostic and surgical arthroscopy with extensive synovectomy Right knee diagnostic and surgical arthroscopy with medial and patellofemoral compartment chondroplasty Findings of the procedure(s): Patient underwent procedure as planned without issues or complications Estimated blood loss: 5 mL Specimen(s) removed: None Post-operative diagnosis: Right knee medial meniscus tear, lateral meniscus tear, loose body, extensive synovitis, chondromalacia
--- NOTE | 2023-12-17 13:30 | P.OP_ITS ---
Operative Report Date of procedure: December 17, 2023 Surgeon: Cruz Zhong DO Procedure: Preoperative diagnosis: Right knee medial meniscus tear, parameniscal cyst Post-op diagnosis: Right knee medial meniscus tear, lateral meniscus tear, loose body, extensive synovitis, chondromalacia Procedure done: Right knee diagnostic and surgical arthroscopy with partial medial meniscectomy Right knee diagnostic and surgical arthroscopy with partial lateral meniscectomy Right knee diagnostic and surgical arthroscopy with loose body removal greater than 1 cm Right knee diagnostic and surgical arthroscopy with extensive synovectomy Right knee diagnostic and surgical arthroscopy with medial and patellofemoral compartment chondroplasty Surgeon: Cruz Zhong DO Estimated blood loss: 5 Tourniquet: No tourniquet was used IV fluids: 700mL Complications: None Findings: See operative report narrative Condition: stable Disposition: same day Brief History: Patient is a 38-year-old male with right?knee?pain.? Patient has failed conservative treatment who has been worked up for right??knee?pain in the outpatient setting. MRI findings consistent with tear of the medial meniscus. talked in the office about treatment options patient would like to proceed with a right?knee?diagnostic and surgical arthroscopy with partial medial meniscectomy versus repair and possible parameniscal cyst excision/decompression.? Patient understand the ins and outs of the procedure the risk benefits complication alternatives to treatment options.? Understanding risk of surgery pt agree to proceed with surgical intervention.? Patient understand this may not provide patient with complete symptomatic relief of? pain as patient does have some underlying arthritis.? Understanding this and patient agree to proceed with surgical intervention all questions answered. Procedure: Patient seen and evaluated in the preoperative holding area.? Consent was reviewed and signed with patient.? Correct extremity was then marked.? Patient seen evaluated Anesthesia Department once cleared for surgery patient was taken back to the operative suite.? Patient was transported onto the OR table in supine position.? All bony prominences well-padded patient was appropriate secured to the bed.? Once appropriately anesthetized a nonsterile tourniquet was applied to the right thigh.? The right lower extremity was then prepped and draped in standard orthopedic fashion.? Final timeout performed.? Patient received appropriate preoperative antibiotics. Patient received local anesthetic of lidocaine with epinephrine into the joint as well as around the portal sites.? No tourniquet was inflated A standard 2 portal vertical incision diagnostic and surgical arthroscopy of the right?knee?was performed in standard fashion.? Small stab incision made in the inferolateral portal introduced trocar and arthroscope into the suprapatellar pouch.? Suprapatellar pouch was subsequently visualized and found to have significant synovitis but no loose bodies.? Patient had noticeable significant inflamed infrapatellar fat pad and thickening hypertrophic within the patellofemoral compartment.? ?The medial gutter was free of loose bodies I then introduced the arthroscope into the medial compartment.? Within the medial compartment I then established my inferior medial working portal utilizing spinal needle outside in technique.? Once established I then visualized our articular cartilage of the medial compartment with a valgus stress.? Patient was found to have grade 3 chondro malacia throughout the medial compartment.? Next I inspected the meniscus.? With an arthroscopic probe was utilized to visual? all aspects of the meniscus.? Meniscal root was found to be intact.? Meniscus was found to be torn at the body to posterior horn junction.? I then subsequently introduced a basket forceps as well as arthroscopic shaver to perform a partial medial meniscectomy to stable meniscal tissue and then utilized a thermal wand to anneal the edges.? No direct parameniscal cyst was appreciated but the tear was excised to its entirety to stable tissue as this should resolve patient's parameniscal cyst. Next, I then performed a synovectomy of the medial compartment.? Given patient's chondromalacia there was areas of unstable articular cartilage and I subsequently performed a chondroplasty with arthroscopic shaver and thermal wand.? This completed medial compartment work. Next a introduced the arthroscope to the intercondylar notch.? PCL and ACL were intact. Patient was found at this part of the case to having any greater than 1 cm loose body within the intercondylar notch. I then subsequently used an arthroscopic grasper and grasped the articular loose body piece and subsequently remove this from the joint atraumatically. Patient had significant thickening of the infrapatellar fat pad spanning into the medial and lateral compartments.? I then performed an extensive synovectomy with the arthroscopic shaver of the patellofemoral medial and lateral compartments as well as the intercondylar notch. Next I introduced the arthroscope into the lateral compartment the lateral compartment was found to have grade 2 chondromalacia.? Lateral meniscus was found to have a tear along the body and in the posterior horn along the white white zone. No repair was able to be performed the meniscal root was probed and found to be intact. This point time performed a partial lateral meniscectomy with arthroscopic basket forceps and arthroscopic shaver as well as thermal wand to kneel the edges after the partial lateral meniscectomy was performed to stable meniscal tissue. Given the grade II chondromalacia there is no unstable cartilage pieces to perform chondroplasty.? This completed my work of the lateral compartment and then performed a synovectomy of the lateral compartment.? Next of the arthroscope was placed into the lateral gutter and this was free of loose bodies.? Finally I reintroduced the arthroscope into the patellofemoral compartment.? The patellofemoral was found to have grade 2-3 chondromalacia of the patellofemoral compartment.? At this point I utilized arthroscopic shaver as well as thermal wand to perform extensive synovectomy of the patellofemoral compartment. I did utilize thermal wand and arthroscopic shaver to perform a patellofemoral compartment chondroplasty to stable articular cartilage. This completed work of the patellofemoral space.? I then switch my portal sites to the medial working portal.? Completed the rest of my synovectomy and the rest of my examination arthroscopy was normal. All fluid was suctioned from the joint.? ?All instruments were withdrawn.? Portal sites were closed with interrupted nylon suture.? portal sites were then covered with with Xeroform 4 x 4's ABD Curlex and Ananth wrap.? Patient was then subsequently awakened from anesthesia and taken to PACU in stable condition. Disposition: Patient taken to PACU in stable condition recovering well.? Will receive appropriate discharge structure as well as pain medication postoperatively given allergies of NSAIDs normally prescribed aspirin but at this point in time would recommend continued early range of motion as well as LULU hose for mobilization blood clot prevention. We will have patient follow-up with us in the office in 2 weeks.? We will weightbearing as tolerated to the right lower extremity.? Patient understands and agrees with current plan.? All questions answered.
[2023-12-17] MEDS: oxyCODONE 5 mg IR Tab/Cap PO (14:36)
--- NOTE | 2023-12-17 15:18 | ANE.PACU2 ---
Inpatient post-anesthesia follow up: Airway intact: Yes Vital signs: Temperature 97 F Pulse Rate 92 Respiratory Rate 18 Blood Pressure 136/82 Pulse Oximetry 93 Oxygen Delivery Me thod Room Air Oxygen Flow Rate 6 Fraction of Inspir ed Oxygen Hydration adequate: Yes Nausea and vomiting: No Pain level: 3 Mental status: Baseline
== END 2023-12-17 14:53 | disposition home or self-care (01) ==
PROVIDERS: Anesthesiology; PCP Family Medicine; Visit Provider Student in an Organized Health Care Education/Training Program
PROC: (CPT 29870; principal; 2023-12-17 12:15)
PROC: (CPT 27427; 2023-12-17 12:15)
DX: S83.241A Other tear of medial meniscus, current injury, right knee, initial encounter (principal); S83.281A Other tear of lateral meniscus, current injury, right knee, initial encounter; X58.XXXA Exposure to other specified factors, initial encounter; M24.011 Loose body in right shoulder; M94.261 Chondromalacia, right knee; J44.9 Chronic obstructive pulmonary disease, unspecified; I10 Essential (primary) hypertension; E11.9 Type 2 diabetes mellitus without complications; E66.01 Morbid (severe) obesity due to excess calories; Z68.43 Body mass index [BMI] 50.0-59.9, adult; G47.33 Obstructive sleep apnea (adult) (pediatric); F17.210 Nicotine dependence, cigarettes, uncomplicated
CPT/HCPCS: 29876; 29880; 36416; 81025; 82962; 84703; J0690; J1100; J2250; J2405; J2704; J3010; J7030

== ENCOUNTER 2023-12-29 12:22 | Oncology outpatient (recurring) (ONCR) | payer MEDICARE, MEDICAID, SELFPAY ==
[2023-12-29 12:45] LABS: Basophils # 0.1 10^3/uL (0.0-0.1); Basophils % 0.5 %; Eosinophils # 0.3 10^3/uL (0.0-0.8); Eosinophils % 1.6 %; Hematocrit 49.3 % (36-47); Lymphocytes # 2.2 10^3/uL (0.8-4.8); Lymphocytes % 12.6 %; Mean Corpuscular HGB Conc 33.1 g/dL (30-55); Mean Corpuscular Volume 84.6 fl (85-98); Mean Platelet Volume 10.7 fL (7.4-10.4); Monocytes # 1.1 10^3/uL (0.2-0.9); Monocytes % 6.4 %; Neutrophils # 13.57 10^3/uL (1.8-7.7); Neutrophils % 77.4 %; Nucleated Red Blood Cells % 0 %; Platelet Count 347 10^3/cmm (157-399); Red Blood Count 5.83 10^6/uL (3.85-5.65); Red Cell Distribution Width 13.9 % (12.1-15.1); White Blood Count 17.55 10^3/uL (3.29-11.43)
[2023-12-29 13:07] LABS: Alanine Aminotransferase 35 U/L (0-33); Albumin Level 4.1 g/dL (3.5-5.2); Alkaline Phosphatase 171 U/L (35-105); Anion Gap 16.3 (5-19); Aspartate Amino Transferase 13 U/L (0-32); Blood Urea Nitrogen 13 mg/dL (6-20); Calcium 8.5 mg/dL (8.5-10.5); Carbon Dioxide 22 mmol/L (22-29); Chloride 102 mmol/L (98-107); Globulin 3.6 g/dL (1.3-4.6); Glomerular Filtration Rate 94.7 mL/min (90-130); Glucose 276 mg/dL (65-115); Osmolality Calculated 292 mOsm/kg (285-295); Potassium 4.3 mmol/L (3.5-5.1); Sodium 136 mmol/L (136-145); Total Bilirubin 0.5 mg/dL (0.15-1.2); Total Protein 7.7 g/dL (6.6-8.7)
== END 2024-01-06 23:59 | disposition home or self-care (01) ==
PROVIDERS: Nurse Practitioner Family; PCP Family Medicine; Visit Provider Internal Medicine
DX: D72.829 Elevated white blood cell count, unspecified (principal); F17.210 Nicotine dependence, cigarettes, uncomplicated
CPT/HCPCS: 36415; 80053; 85025; 99214

== ENCOUNTER → 2024-01-06 08:59 | Outpatient (BNVA) | payer MEDICARE, MEDICAID, SELFPAY | PROVIDERS: PCP Family Medicine; Visit Provider Student in an Organized Health Care Education/Training Program | DX: Z98.890 Other specified postprocedural states (principal) | CPT/HCPCS: 99024 ==

== ENCOUNTER → 2024-01-22 08:54 | Outpatient (BNVA) | payer MEDICARE, MEDICAID, SELFPAY | PROVIDERS: PCP Family Medicine; Visit Provider Orthopaedic Surgery | DX: Z09 Encounter for follow-up examination after completed treatment for conditions other than malignant neoplasm (principal) | CPT/HCPCS: 99214 ==

== ENCOUNTER 2024-02-16 10:45 | Oncology outpatient (recurring) (ONCR) | payer MEDICARE, MEDICAID, SELFPAY ==
[2024-02-11 14:10] LABS: Basophils # 0.1 10^3/uL (0.0-0.1); Basophils % 0.4 %; Eosinophils # 0.2 10^3/uL (0.0-0.8); Eosinophils % 1.1 %; Lymphocytes # 2.2 10^3/uL (0.8-4.8); Lymphocytes % 11.8 %; Mean Corpuscular HGB Conc 33.1 g/dL (30-55); Mean Corpuscular Volume 84.6 fl (85-98); Mean Platelet Volume 10.7 fL (7.4-10.4); Monocytes # 1.3 10^3/uL (0.2-0.9); Monocytes % 6.8 %; Neutrophils # 14.48 10^3/uL (1.8-7.7); Neutrophils % 78.2 %; Nucleated Red Blood Cells % 0 %; Platelet Count 323 10^3/cmm (157-399); Red Blood Count 6.03 10^6/uL (3.85-5.65); Red Cell Distribution Width 13.9 % (12.1-15.1); White Blood Count 18.51 10^3/uL (3.29-11.43)
[2024-02-11 14:39] LABS: Alanine Aminotransferase 47 U/L (0-33); Albumin Level 4.1 g/dL (3.5-5.2); Alkaline Phosphatase 162 U/L (35-105); Aspartate Amino Transferase 8 U/L (0-32); Blood Urea Nitrogen 16 mg/dL (6-20); Calcium 8.8 mg/dL (8.5-10.5); Carbon Dioxide 20 mmol/L (22-29); Chloride 100 mmol/L (98-107); Globulin 3.9 g/dL (1.3-4.6); Glomerular Filtration Rate 113.1 mL/min (90-130); Glucose 260 mg/dL (65-115); Osmolality Calculated 288 mOsm/kg (285-295); Sodium 134 mmol/L (136-145); Total Bilirubin 0.3 mg/dL (0.15-1.2)
[2024-02-11 16:32] LABS: Lactate Dehydrogenase 228 U/L (135-214)
== END 2024-03-07 23:59 | disposition home or self-care (01) ==
PROVIDERS: Nurse Practitioner Family; PCP Family Medicine; Visit Provider Internal Medicine
DX: Z53.9 Procedure and treatment not carried out, unspecified reason (principal)
CPT/HCPCS: 36415; 80053; 81270; 81279; 81339; 81479; 82668; 83615; 85025; 88374; 99214

== ENCOUNTER 2024-02-22 13:44 | Emergency (ER) | payer MEDICARE, MEDICAID, SELFPAY ==
[2024-02-22 14:04] VITALS: BP 153/93; PULSE 95; RESP 17; TEMP 36.9; O2SAT 92; BMI 54.9
--- NOTE | 2024-02-22 16:24 | W.ED.FALL ---
HPI - Fall General: Chief Complaint: Fall Stated Complaint: ABD PAIN Time Seen by Provider: 02/22/24 16:24 History of Present Illness: 38-year-old female comes in today for fall injury. Patient reports slipping and falling landing on her left side. Since then patient has complained of neck and left lower abdominal pain. Patient is concerned that she may have ruptured an ovarian cyst. Patient appears nontoxic. Patient appears in mild pain. Patient is morbidly obese. Review of Systems General: Reports: 10 or more systems reviewed and unremarkable except in HPI and below PFSH ED PFSH: Medical History Chronic anemia Migraine JESSE (iron deficiency anemia) Tobacco use disorder DHEERAJ (obstructive sleep apnea) Atypical chest pain Type 2 diabetes mellitus, with long-term current use of insulin Dyslipidemia snf (current) use of opiate analgesic Pain management contract signed Amenorrhea Asthma Spinal stenosis, thoracic region Morbid obesity with BMI of 60.0-69.9, adult Muscle spasms of both lower extremities Bilateral leg edema Bilateral chronic knee pain GERD (gastroesophageal reflux disease) Surgical History History of cholecystectomy Family History Father CAD (coronary artery disease) Diabetes Hypertension Seizures Bleeding disorder Hyperlipidemia Lung disease Psychiatric illness Stroke Family/Other Cancer Clotting disorder Hyperlipidemia Lung disease Psychiatric illness Stroke Mother Diabetes Hypertension Hyperlipidemia Lung disease Other Chronic kidney disease (CKD) Denies family history of Dementia Anesthesia complication Social History Smoking and tobacco/nicotine status: never used tobacco/nicotine Quit status (tobacco/nicotine): considering quitting Second hand smoke exposure: Yes Alcohol intake: former Year of sobriety/quit date alcohol: 2016 Substance/Drug Use: former Date of last use: MJ quit in 2021 with new pain management Caregiver/support person: Yes Household members: spouse and family Marital status: Current occupational status: disabled Current occupation: disabled Special lacey needs: No Female Reproductive History: Para: 1 Physical Exam Const: COMMON NORMALS: alert HENMT: COMMON NORMALS: atraumatic HEAD & SCALP: atraumatic Neck/C-Spine: COMMON NORMALS: full ROM Chest: COMMONS NORMALS: normal palpation of entire chest wall Resp: COMMON NORMALS: normal respiratory effort and clear to auscultation bilaterally AUSCULTATION: clear to auscultation bilaterally Cardio: COMMON NORMALS: regular rate and regular rhythm RATE: regular rate RHYTHM: regular rhythm GI: COMMON NORMALS: Soft to palpation PALPATION: Yes Soft to palpation and Yes Tenderness to palpation present (GI) Details: LLQ Back/Pelvis: COMMON NORMALS: thoracic and lumbar spine normal to inspection Extremity: COMMON NORMALS: full ROM Neuro: SENSORIUM/ORIENTATION: Yes alert Skin: COMMON NORMALS: turgor normal GENERAL SKIN EXAM: turgor normal Course Vital Signs: Vital signs: Vital Signs Temperature 98.5 F 02/22/24 14:04 Pulse Rate 92 02/22/24 19:39 Respiratory Rate 16 02/22/24 19:39 Blood Pressure 142/106 02/22/24 19:39 Pulse Oximetry 99 02/22/24 19:39 Oxygen Delivery Me thod Room Air 02/22/24 14:04 MDM - Fall Medical Decision Making 38-year-old female comes in today for complaints of left lower quadrant abdominal pain. On exam patient appears nontoxic. Patient appears no acute distress. Respirations are even lungs are clear to auscultation. Patient has tenderness on palpation of the left lower quadrant of the abdomen. Differential diagnosis includes but not limited to ruptured ovarian cyst, contusion abdominal wall, malingering, cervical strain, cervical neck fracture. CT of the abdomen pelvis noted some enlargement in the ovarian mass but no acute processes. CT of the cervical spine noted no fractures. CBC, CMP was unremarkable when compared to prior exams. Patient was given some morphine and Zofran to help with her pain while in the emergency department. Patient was recommended to follow-up with primary care for further evaluation and treatment. Lab Data 02/22/24 16:47 02/22/24 16:47 Radiology Impressions Abdomen/Pelvis CT 02/22/24 16:32 IMPRESSION: 1. Large rounded 11.3 cm circumscribed hypodense lesion, mass or masslike process projects abdomen centered to the left of midline, more dense than expected for simple fluid, water density, appears chronic, but increased in size compared to prior studies 10/03/2021, 01/07/2023, suspicious for enlarging left ovarian mass, neoplasm, cystic mass. 2. Otherwise, no acute process seen. 3. Please see body of report for findings. Cervical Spine CT 02/22/24 16:32 IMPRESSION: No new appearing displaced fracture seen. Degenerative changes appearing slightly progressed compared to 10/19/2019. Laboratory Results WBC 14.86 10^3/uL (3.29-11.43) H 02/22/24 16:47 RBC 6.40 10^6/uL (3.85-5.65) H 02/22/24 16:47 Hgb 17.40 g/dL (11.27-16.99) H 02/22/24 16:47 Hct 54.3 % (36-47) H 02/22/24 16:47 MCV 84.8 fl (85-98) L 02/22/24 16:47 MCH 27.2 pg (27-33) 02/22/24 16:47 MCHC 32.0 g/dL (30-55) 02/22/24 16:47 RDW 14.7 % (12.1-15.1) 02/22/24 16:47 Plt Count 350 10^3/cmm (157-399) 02/22/24 16:47 MPV 10.9 fL (7.4-10.4) H 02/22/24 16:47 Neut % (Auto) 75.4 % 02/22/24 16:47 Lymph % (Auto) 15.3 % 02/22/24 16:47 Stanislaus % (Auto) 6.4 % 02/22/24 16:47 Eos % (Auto) 1.3 % 02/22/24 16:47 Baso % (Auto) 0.6 % 02/22/24 16:47 Neut # (Auto) 11.20 10^3/uL (1.8-7.7) H 02/22/24 16:47 Lymph # (Auto) 2.3 10^3/uL (0.8-4.8) 02/22/24 16:47 Stanislaus # (Auto) 1.0 10^3/uL (0.2-0.9) H 02/22/24 16:47 Eos # (Auto) 0.2 10^3/uL (0.0-0.8) 02/22/24 16:47 Baso # (Auto) 0.1 10^3/uL (0.0-0.1) 02/22/24 16:47 Nucleated RBC % (auto) 0 % 02/22/24 16:47 Nucleated RBCs # 0.0 /100WBC 02/22/24 16:47 Sodium 137 mmol/L (136-145) 02/22/24 16:47 Potassium 4.2 mmol/L (3.5-5.1) 02/22/24 16:47 Chloride 102 mmol/L (98-107) 02/22/24 16:47 Carbon Dioxide 22 mmol/L (22-29) 02/22/24 16:47 Anion Gap 17.2 (5-19) 02/22/24 16:47 BUN 14 mg/dL (6-20) 02/22/24 16:47 Creatinine 0.7 mg/dL (0.5-0.9) 02/22/24 16:47 GFR Calculation 94.7 mL/min (90-130) 02/22/24 16:47 Glucose 249 mg/dL (65-115) H 02/22/24 16:47 Calculated Osmolality 293 mOsm/kg (285-295) 02/22/24 16:47 Calcium 9.8 mg/dL (8.5-10.5) 02/22/24 16:47 Total Bilirubin 0.6 mg/dL (0.15-1.2) 02/22/24 16:47 AST 14 U/L (0-32) 02/22/24 16:47 ALT 51 U/L (0-33) H 02/22/24 16:47 Alkaline Phosphatase 215 U/L (35-105) H 02/22/24 16:47 Total Protein 8.8 g/dL (6.6-8.7) H 02/22/24 16:47 Albumin 4.3 g/dL (3.5-5.2) 02/22/24 16:47 Globulin 4.5 g/dL (1.3-4.6) 02/22/24 16:47 HCG, Qual Negative (Negative) 02/22/24 16:47 All radiology interpretation(s) finalized by discharge Discharge Plan Discharge Patient Disposition: Home Clinical Impression: Ovarian mass, left Fall Qualifiers: Encounter type: initial encounter Qualified Code(s): W19.XXXA - Unspecified fall, initial encounter Condition: Stable Prescriptions: No Action (DME) Omnipod 5 G6 Pods (Gen 5) Cartridge See Rx Instructions .Route Qty: 5 2RF Rx Instructions: As directed (DME) ASO to the Left Ankle See Rx Instructions .Route .MEDSUPPLY Qty: 1 0RF Rx Instructions: As directed ciclopirox 0.77 % cream 1 applic topical BID 28 Days Qty: 30 0RF Rx Instructions: Apply to hands twice daily for 4 weeks (DME) Diabetic shoes with 3 sets of inserts See Rx Instructions .Route .MEDSUPPLY Qty: 1 0RF Rx Instructions: As directed HOME (DME) lancets [Accu-Chek Fastclix Lancet Drum] Misc See Rx Instructions .ROUTE .MEDSUPPLY Qty: 100 1RF Rx Instructions: TWICE DAILY clobetasol 0.05 % ointment 1 applic topical BID 14 Days Qty: 60 1RF Rx Instructions: Apply to palm & trunk. Use for no more than 2 weeks per month. Not for use on face/skin folds. (DME) hinged knee brace See Rx Instructions .Route .MEDSUPPLY Qty: 1 0RF Rx Instructions: As directed (DME) 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 meter [Accu-Chek Guide Glucose Meter] Misc See Rx Instructions .Route Qty: 1 0RF Rx Instructions: As directed ([facility]) lancets [Accu-Chek Softclix Lancets] Misc See Rx Instructions .Route Qty: 100 0RF Rx Instructions: As directed ([facility]) Accu-Chek Guide test strips Strip See Rx Instructions .ROUTE .COMPLEX Qty: 200 0RF Dose Instruction: check UP TO TWICE DAILY Rx Instructions: check UP TO TWICE DAILY ([facility]) Dexcom G7 Sensor Device See Rx Instructions .Route Qty: 9 0RF Rx Instructions: As directed ([facility]) Dexcom G7 Flight Security Specialist Misc See Rx Instructions .Route Qty: 1 0RF Rx Instructions: As directed omeprazole 40 mg capsule,delayed release(DR/EC) 40 mg PO BID PRN (Reason: acid reflux) Qty: 180 1RF montelukast [Singulair] 10 mg tablet 10 mg PO DAILY Qty: 90 1RF potassium chloride 20 mEq tablet extended release See Rx Instructions .ROUTE .COMPLEX Qty: 90 1RF Dose Instruction: TAKE 1 TABLET BY MOUTH EVERY DAY Rx Instructions: TAKE 1 TABLET BY MOUTH EVERY DAY Jardiance 25 mg tablet See Rx Instructions .ROUTE .COMPLEX Qty: 30 3RF Dose Instruction: TAKE 1 TABLET BY MOUTH EVERY DAY Rx Instructions: TAKE 1 TABLET BY MOUTH EVERY DAY insulin aspart U-100 [Novolog FlexPen U-100 Insulin] 100 unit/mL (3 mL) insulin pen See Rx Instructions .ROUTE .COMPLEX Qty: 27 3RF Dose Instruction: inject 10 units SUBCUTANEOUSLY THREE TIMES DAILY Rx Instructions: inject 10 units SUBCUTANEOUSLY THREE TIMES DAILY Imitrex 25 mg tablet See Rx Instructions .ROUTE .COMPLEX PRN (Reason: Migraine Headache) Qty: 30 1RF Rx Instructions: TAKE 1 TABLET BY MOUTH EVERY 2 HOURS NEEDED FOR MIGRAINE HEADACHE. MAX OF FOUR TABLETS PER 24 HOURS spironolactone 50 mg tablet 50 mg PO DAILY Qty: 90 3RF budesonide-formoterol [Symbicort] 160-4.5 mcg/actuation HFA aerosol inhaler See Rx Instructions .ROUTE .COMPLEX Qty: 10.2 2RF Dose Instruction: inhale TWO puffs BY MOUTH TWICE DAILY FOR copd Rx Instructions: inhale TWO puffs BY MOUTH TWICE DAILY FOR copd (DME) pen needle, diabetic [Droplet Pen Needle] 31 gauge x 3/16 needle See Rx Instructions .ROUTE .COMPLEX Qty: 300 0RF Dose Instruction: USE THREE TIMES DAILY Rx Instructions: USE THREE TIMES DAILY buspirone 10 mg tablet 20 mg PO TID Qty: 180 2RF citalopram 40 mg tablet 40 mg PO DAILY Qty: 90 0RF mirtazapine 15 mg tablet 15 mg PO .HS Qty: 30 2RF propranolol 20 mg tablet 20 mg PO BID PRN (Reason: anxiety) Qty: 60 2RF venlafaxine 150 mg capsule,extended release 24hr See Rx Instructions .ROUTE .COMPLEX Qty: 30 2RF Dose Instruction: TAKE ONE CAPSULE BY MOUTH EVERY DAY Rx Instructions: TAKE ONE CAPSULE BY MOUTH EVERY DAY furosemide 40 mg tablet See Rx Instructions .ROUTE .COMPLEX Qty: 95 2RF Dose Instruction: TAKE 1 TABLET BY MOUTH TWICE DAILY for 5 days THEN decrease TO ONE EVERY DAY thereafter Rx Instructions: TAKE 1 TABLET BY MOUTH TWICE DAILY for 5 days THEN decrease TO ONE EVERY DAY thereafter insulin glargine [Lantus Solostar U-100 Insulin] 100 unit/mL (3 mL) insulin pen 40 unit SUBCUT DAILY Qty: 45 0RF albuterol sulfate 90 mcg/actuation HFA aerosol inhaler See Rx Instructions .ROUTE .COMPLEX Qty: 8.5 5RF Dose Instruction: inhale TWO puffs BY MOUTH EVERY 6 HOURS as needed for SHORTNESS OF BREATH or wheezing Rx Instructions: inhale TWO puffs BY MOUTH EVERY 6 HOURS as needed for SHORTNESS OF BREATH or wheezing gabapentin 300 mg capsule 300 mg PO BID Qty: 180 1RF Mounjaro 15 mg/0.5 mL pen injector See Rx Instructions .ROUTE .COMPLEX Qty: 2 1RF Dose Instruction: INJECT 15MG SUBCUTANEOUSLY every week Rx Instructions: INJECT 15MG SUBCUTANEOUSLY every week oxycodone 5 mg tablet 5 mg PO Q6H PRN (Reason: pain postop) 7 Days Qty: 28 0RF Discharge Orders: Discharge ED (Routine); Ordered 02/22/24 Ordered By: Herb Nathan Referrals: Martínez Lovelace MD [Primary Care Provider] - Discharge Diet: Usual diet Discharge Activity: Increase activity as tolerated Patient Instructions: Ovarian Cyst (ED) Activity Restrictions/Additional Instructions: Follow-up with primary care or [facility] for further evaluation and treatment of your ovarian mass. Return to ER for new concerns. Coding Level of Care Code ED Mva Still Operator for Leonela Escobedo
--- NOTE | 2024-02-22 16:32 | CTR_ITS ---
PROCEDURE INFORMATION: Exam: CT Abdomen And Pelvis With Contrast Exam date and time: 02/22/2024 5:42 PM Age: 38 years old Clinical indication: Pain and injury or trauma; Fall; Blunt; Luq; Abdominal pain; Generalized; Prior surgery; Surgery date: 6+ months; Surgery type: Gb; Additional info: Fall, abd pain left side TECHNIQUE: Imaging protocol: Computed tomography of the abdomen and pelvis with contrast. Radiation optimization: All CT scans at this facility use at least one of these dose optimization techniques: automated exposure control; mA and/or kV adjustment per patient size (includes targeted exams where dose is matched to clinical indication); or iterative reconstruction. Contrast material: OMNI 350; Contrast volume: 100 ml; Contrast route: INTRAVENOUS (IV); COMPARISON: CT abdomen pelvis w con* [id number] 10/07/2023 9:11 AM RADIATION DOSE METRICS: Total DLP (mGy-cm): 1274.21 FINDINGS: Limitations: Some images degraded by artifact. Lungs: Chronic tiny nodule right lung base, right middle lobe just above right hemidiaphragm, similar to images from CT scan abdomen and pelvis kidney stone protocol 01/07/2023. Esophagus: Mild wall thickening distal esophagus. Liver: Evidence of mild diffuse fatty liver, hepatic steatosis. Gallbladder and bile ducts: Clips project gallbladder fossa. No marked bile duct dilatation seen. Pancreas: Pancreas unremarkable. Spleen: Stable appearance of spleen, upper limits of normal for length. Adrenal glands: Adrenals unremarkable. Kidneys and ureters: Kidneys unremarkable. Stomach and bowel: Moderate stool and gas of the colon. Stomach appears mostly empty, decompressed. Bowel pattern appears nonobstructive. Appendix: No acute appendicitis seen. Intraperitoneal space: No free intraperitoneal air and no free abdominal or pelvic fluid collections seen. Vasculature: No aneurysm seen of abdominal aorta. Lymph nodes: Scattered small lymph nodes, nonspecific. Urinary bladder: Urinary bladder appears filled. Reproductive: Large rounded 11.3 cm circumscribed hypodense lesion, mass or masslike process projects abdomen centered to the left of midline, more dense than expected for simple fluid, water density, appears chronic, but increased in size compared to prior studies 10/03/2021, 01/07/2023, suspicious for enlarging left ovarian mass, neoplasm, cystic mass. Uterus appears anteverted. Bones/joints: Mild curvature, degenerative changes spine. Soft tissues: Evidence of diastasis recti. Tiny fat containing umbilical/paraumbilical hernia. CT/CT abdomen pelvis w con* [id number] IMPRESSION: 1. Large rounded 11.3 cm circumscribed hypodense lesion, mass or masslike process projects abdomen centered to the left of midline, more dense than expected for simple fluid, water density, appears chronic, but increased in size compared to prior studies 10/03/2021, 01/07/2023, suspicious for enlarging left ovarian mass, neoplasm, cystic mass. 2. Otherwise, no acute process seen. 3. Please see body of report for findings.
--- NOTE | 2024-02-22 16:32 | CTR_ITS ---
PROCEDURE INFORMATION: Exam: CT Cervical Spine Without Contrast Exam date and time: 02/22/2024 5:36 PM Age: 38 years old Clinical indication: Injury or trauma; Fall; Blunt trauma TECHNIQUE: Imaging protocol: Computed tomography of the cervical spine without contrast. Radiation optimization: All CT scans at this facility use at least one of these dose optimization techniques: automated exposure control; mA and/or kV adjustment per patient size (includes targeted exams where dose is matched to clinical indication); or iterative reconstruction. COMPARISON: CT cervical spin wo con* [id number] 10/19/2019 1:40 PM RADIATION DOSE METRICS: Total DLP (mGy-cm): 583.1 FINDINGS: Limitations: Images degraded by artifact. Bones: Chronic lucent clefts anterior arch and posterior arch C1, similar to 10/19/2019. Mild reversal of usual cervical lordosis. Mild disc space narrowing. Hypertrophic endplate changes. No new appearing displaced fracture nor dislocation seen. Lungs: Visualized portions lung apices included appear clear bilaterally. Lymph nodes: Scattered small lymph nodes, nonspecific. Soft tissues: No obvious hematoma seen of paraspinous soft tissues. CT/CT cervical spin wo con* [id number] IMPRESSION: No new appearing displaced fracture seen. Degenerative changes appearing slightly progressed compared to 10/19/2019.
[2024-02-22 16:57] LABS: Basophils # 0.1 10^3/uL (0.0-0.1); Basophils % 0.6 %; Eosinophils # 0.2 10^3/uL (0.0-0.8); Eosinophils % 1.3 %; Hematocrit 54.3 % (36-47); Lymphocytes # 2.3 10^3/uL (0.8-4.8); Lymphocytes % 15.3 %; Mean Corpuscular Hemoglobin 27.2 pg (27-33); Mean Corpuscular Volume 84.8 fl (85-98); Mean Platelet Volume 10.9 fL (7.4-10.4); Monocytes % 6.4 %; Neutrophils % 75.4 %; Nucleated Red Blood Cells % 0 %; Platelet Count 350 10^3/cmm (157-399); Red Cell Distribution Width 14.7 % (12.1-15.1); White Blood Count 14.86 10^3/uL (3.29-11.43)
[2024-02-22 17:09] LABS: HCG, Serum Qual Negative (Negative)
[2024-02-22 17:18] LABS: Alanine Aminotransferase 51 U/L (0-33); Albumin Level 4.3 g/dL (3.5-5.2); Alkaline Phosphatase 215 U/L (35-105); Anion Gap 17.2 (5-19); Aspartate Amino Transferase 14 U/L (0-32); Blood Urea Nitrogen 14 mg/dL (6-20); Calcium 9.8 mg/dL (8.5-10.5); Carbon Dioxide 22 mmol/L (22-29); Chloride 102 mmol/L (98-107); Creatinine Clr Calc Pharmacy 153.7978; Globulin 4.5 g/dL (1.3-4.6); Glomerular Filtration Rate 94.7 mL/min (90-130); Glucose 249 mg/dL (65-115); Osmolality Calculated 293 mOsm/kg (285-295); Potassium 4.2 mmol/L (3.5-5.1); Sodium 137 mmol/L (136-145); Total Bilirubin 0.6 mg/dL (0.15-1.2); Total Protein 8.8 g/dL (6.6-8.7)
[2024-02-22 17:31] VITALS: RESP 18; O2SAT 98
[2024-02-22] MEDS: ondansetron 2 mg/ML SDV 2 mL 4 MG IVP (17:31)
[2024-02-22] MEDS: morphine 4 mg/mL SDV 1 mL IVP (17:31)
[2024-02-22] MEDS: iohexol 350 mg/mL 500 mL Btl (per mL) IV (17:52)
[2024-02-22 18:00] VITALS: BP 142/89; PULSE 94; RESP 17; O2SAT 98
[2024-02-22 18:55] VITALS: BP 134/79; PULSE 92; RESP 16; O2SAT 94
[2024-02-22 19:39] VITALS: BP 142/106; PULSE 92; RESP 16; O2SAT 99
[2024-02-22] MEDS: morphine 4 mg/mL SDV 1 mL 2 MG IVP (19:44)
== END 2024-02-22 20:11 | disposition home or self-care (01) ==
PROVIDERS: Emergency Provider Nurse Practitioner Family; PCP Family Medicine
DX: N83.9 Noninflammatory disorder of ovary, fallopian tube and broad ligament, unspecified (principal); Z79.4 Long term (current) use of insulin; Z79.85 Long-term (current) use of injectable non-insulin antidiabetic drugs; E11.9 Type 2 diabetes mellitus without complications; E78.5 Hyperlipidemia, unspecified; Z77.22 Contact with and (suspected) exposure to environmental tobacco smoke (acute) (chronic)
CPT/HCPCS: 72125; 74177; 80053; 84703; 85025; 96374; 96375; 96376; 99285; J2270; J2405; Q9967

== ENCOUNTER 2024-02-29 19:21 | Emergency (ER) | payer MEDICARE, MEDICAID, SELFPAY ==
[2024-02-29 19:27] VITALS: BP 151/89; PULSE 100; RESP 20; TEMP 37.3; O2SAT 94; BMI 51.3
[2024-02-29 19:54] LABS: Add Urine Microscopic? NO; Charge for UA Resulting for Rev
[2024-02-29 20:02] VITALS: RESP 18; O2SAT 100
[2024-02-29 20:06] LABS: Bilirubin Urine Neg (Negative); Blood Urine Neg (Negative); Glucose Urine UA 4+ (Normal); Ketones Urine 1+ (Negative); Leukocyte Esterase Urine Negative (Negative); Nitrate Urine Negative (Negative); Protein Urine Neg (Negative); Specific Gravity, Urine 1.015 (1.005-1.030); Urine Appearance Clear (CLEAR); Urine Color Yellow (Yellow); Urobilinogen Urine 1 mg/dL (Negative); pH Urine 5 (5-7)
[2024-02-29 20:11] VITALS: RESP 18
[2024-02-29] MEDS: morphine 4 mg/mL SDV 1 mL IVP ×2 (20:11→22:30)
[2024-02-29] MEDS: ondansetron 2 mg/ML SDV 2 mL 4 MG IVP (20:11)
[2024-02-29 20:13] LABS: Amphetamines Screen Urine Negative (Negative); Barbiturates Screen Urine Negative (Negative); Benzodiazepines Screen Urine Negative (Negative); Cocaine Screen Urine Negative (Negative); Opiate Screen Urine Negative (Negative); PCP Screen Urine Negative (Negative); THC Screen Urine Negative (Negative)
--- NOTE | 2024-02-29 20:14 | CTR_ITS ---
PROCEDURE INFORMATION: Exam: CT Abdomen And Pelvis With Contrast Exam date and time: 02/29/2024 8:45 PM Age: 38 years old Clinical indication: Abdominal pain; Localized; Prior surgery; Surgery date: 6+ months; Surgery type: Gb; Patient HX: C/O lower abd pain. History of large ovarian cyst. ; Additional info: Global abd pain and tenderness, started L sided then spread across over 2 days, HX of large TECHNIQUE: Imaging protocol: Computed tomography of the abdomen and pelvis with contrast. Radiation optimization: All CT scans at this facility use at least one of these dose optimization techniques: automated exposure control; mA and/or kV adjustment per patient size (includes targeted exams where dose is matched to clinical indication); or iterative reconstruction. Contrast material: OMNI 350; Contrast volume: 100 ml; Contrast route: INTRAVENOUS (IV); COMPARISON: CT abdomen pelvis w con* [id number] 02/22/2024 5:42 PM RADIATION DOSE METRICS: Total DLP (mGy-cm): 1548.23 FINDINGS: Liver: Hepatic steatosis. Gallbladder and biliary ducts: Cholecystectomy. Pancreas: Normal. No ductal dilation. Spleen: Normal. No splenomegaly. Adrenal glands: Normal. No mass. Kidneys and ureters: Normal. No hydronephrosis. Stomach and bowel: Prominent fluid in the small bowel without dilation may reflect an enteritis. Appendix: No evidence of appendicitis. Intraperitoneal space: See Reproductive finding. Vasculature: Unremarkable. No abdominal aortic aneurysm. Lymph nodes: Unremarkable. No enlarged lymph nodes. Urinary bladder: Unremarkable as visualized. Reproductive: Mid pelvis 11 cm fluid density circumscribed lesion similar to prior exam, concerning for a neoplastic process of ovarian origin, gynecological consultation advised. Small amount of mesenteric edema seen along the left anterolateral aspect of this structure, perhaps reflecting associated inflammatory change. Bones/joints: Unremarkable. No acute fracture. Soft tissues: Unremarkable. CT/CT abdomen pelvis w con* [id number] IMPRESSION: 1. Prominent fluid in the small bowel without dilation may reflect an enteritis. 2. Mid pelvis 11 cm fluid density circumscribed lesion similar to prior exam, concerning for a neoplastic process of ovarian origin, gynecological consultation advised. Small amount of mesenteric edema seen along the left anterolateral aspect of this structure, perhaps reflecting associated inflammatory change. 3. Hepatic steatosis. 4. Cholecystectomy.
[2024-02-29 20:16] LABS: Basophils # 0.1 10^3/uL (0.0-0.1); Basophils % 0.4 %; Eosinophils # 0.3 10^3/uL (0.0-0.8); Eosinophils % 1.8 %; Hematocrit 49.3 % (36-47); Lymphocytes # 1.9 10^3/uL (0.8-4.8); Lymphocytes % 13.4 %; Mean Corpuscular HGB Conc 33.3 g/dL (30-55); Mean Corpuscular Volume 84.3 fl (85-98); Mean Platelet Volume 10.6 fL (7.4-10.4); Monocytes # 1.1 10^3/uL (0.2-0.9); Monocytes % 7.7 %; Neutrophils # 10.77 10^3/uL (1.8-7.7); Neutrophils % 75.6 %; Nucleated Red Blood Cells % 0 %; Platelet Count 330 10^3/cmm (157-399); Red Blood Count 5.85 10^6/uL (3.85-5.65); Red Cell Distribution Width 13.6 % (12.1-15.1); White Blood Count 14.23 10^3/uL (3.29-11.43)
[2024-02-29 20:24] LABS: Alanine Aminotransferase 119 U/L (0-33); Albumin Level 4.4 g/dL (3.5-5.2); Alkaline Phosphatase 220 U/L (35-105); Aspartate Amino Transferase 47 U/L (0-32); Blood Urea Nitrogen 9 mg/dL (6-20); Calcium 9.4 mg/dL (8.5-10.5); Carbon Dioxide 24 mmol/L (22-29); Chloride 100 mmol/L (98-107); Creatinine Clr Calc Pharmacy 172.0051; Globulin 4.1 g/dL (1.3-4.6); Glomerular Filtration Rate 113.1 mL/min (90-130); Glucose 144 mg/dL (65-115); Osmolality Calculated 283 mOsm/kg (285-295); Sodium 136 mmol/L (136-145); Total Protein 8.5 g/dL (6.6-8.7)
[2024-02-29 20:34] LABS: Anion Gap 16.1 (5-19); HCG, Serum Qual Negative (Negative); Potassium 4.1 mmol/L (3.5-5.1)
[2024-02-29 20:37] LABS: Lactic Sepsis W/Reflex 0.8 mmol/L (0.5-2.2)
[2024-02-29] MEDS: iohexol 350 mg/mL 500 mL Btl (per mL) IV (20:47)
[2024-02-29 22:12] VITALS: RESP 18; O2SAT 93
--- NOTE | 2024-02-29 22:14 | W.ED.ABDPA2 ---
Documented by User: Noel Greco MD 02/29/24 22:24 HPI - Abdominal Pain General: Chief Complaint: Abdominal Pain Stated Complaint: believes she has twisted an ovary Time Seen by Provider: 02/29/24 19:26 Source: patient Mode of arrival: ambulatory Limitations: no limitations History of Present Illness: Patient has extensive history of ovarian cyst and in fact has a scheduled surgery for the of next month to have a hysterectomy and oophorectomy done. Patient has a large 9 cm left ovarian cyst and is concerned she may have torn something or start having a ruptured cyst or torsion. She has Friday was putting sheets on the bed and suddenly had some sharp left-sided lower quadrant pain that made her double over. Now the pain is throughout the abdomen and tender all over the abdomen. 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 Pain management contract signed Amenorrhea Asthma Spinal stenosis, thoracic region Morbid obesity with BMI of 60.0-69.9, adult Muscle spasms of both lower extremities Bilateral leg edema Bilateral chronic knee pain GERD (gastroesophageal reflux disease) Surgical History History of cholecystectomy Family History Father CAD (coronary artery disease) Diabetes Hypertension Seizures Bleeding disorder Hyperlipidemia Lung disease Psychiatric illness Stroke Family/Other Cancer Clotting disorder Hyperlipidemia Lung disease Psychiatric illness Stroke Mother Diabetes Hypertension Hyperlipidemia Lung disease Other Chronic kidney disease (CKD) Denies family history of Dementia Anesthesia complication Social History Smoking and tobacco/nicotine status: never used tobacco/nicotine Quit status (tobacco/nicotine): considering quitting Second hand smoke exposure: Yes Alcohol intake: former Year of sobriety/quit date alcohol: 2016 Substance/Drug Use: former Date of last use: MJ quit in 2021 with new pain management Caregiver/support person: Yes Household members: spouse and family Marital status: Current occupational status: disabled Current occupation: disabled Special lacey needs: No Female Reproductive History: Para: 1 Physical Exam Const: COMMON NORMALS: no acute distress, patient oriented x3, healthy appearing, alert and well nourished GENERAL APPEARANCE: well kempt and well developed NUTRITIONAL APPEARANCE: obese HENMT: COMMON NORMALS: normocephalic, atraumatic, external ears normal and moist oral mucous membranes HEAD & SCALP: normocephalic and atraumatic EXTERNAL EAR: Yes external ears normal Eye: COMMON NORMALS: Equal, round and reactive pupils present, EOMs intact bilaterally and conjunctivae normal CONJUNCTIVA: Yes conjunctivae normal PUPIL: Yes Equal, round and reactive pupils present Neck/C-Spine: COMMON NORMALS: full ROM, no lymphadenopathy and supple Chest: CHEST: Yes Symmetrical chest wall rise and No Surgical scars present (Chest) Resp: COMMON NORMALS: normal respiratory effort, No retractions, No use of accessory muscles and clear to auscultation bilaterally AUSCULTATION: clear to auscultation bilaterally Cardio: COMMON NORMALS: regular rate, regular rhythm, S1 normal heart sound present, S2 normal heart sound present, No gallops present (Cardio), No clicks present (Cardio), No murmurs present (Cardio) and No rub (Cardio) RATE: regular rate RHYTHM: regular rhythm HEART SOUNDS: S1 normal heart sound present, S2 normal heart sound present and no murmurs PERIPHERAL PULSES: other (Radial pulses 2+ and symmetric) GI: COMMON NORMALS: Soft to palpation, non-tender and no masses INSPECTION: No abdominal distension PALPATION: Yes Soft to palpation, No Firmness to palpation present (GI), Yes Tenderness to palpation present (GI) (Diffusely no real guarding or rebound), No Guarding due to palpation present (GI), No Rigid due to palpation and No Rebound tenderness present : COMMON NORMALS: Yes no CVA tenderness BLADDER/KIDNEY EXAM: Yes no CVA tenderness Back/Pelvis: COMMON NORMALS: no CVA tenderness Extremity: COMMON NORMALS: normal to inspection, full ROM, capillary refill normal and no clubbing, cyanosis or edema Neuro: COMMON NORMALS: patient oriented x3 SENSORIUM/ORIENTATION: Yes alert Psych: APPEARANCE: Yes well kempt Skin: COMMON NORMALS: no rashes or lesions noted, no wounds, turgor normal and no jaundice GENERAL SKIN EXAM: no rashes or lesions noted and turgor normal Course Reevaluation(s): Reevaluation #1: Alerted patient that we are waiting on CT scan results. Patient requesting more pain medication. 4 mg morphine ordered. Time: 22:17 Vital Signs: Vital signs: Vital Signs Temperature 99.1 F 02/29/24 19:27 Pulse Rate 100 02/29/24 19:27 Respiratory Rate 18 02/29/24 22:30 Blood Pressure 151/89 02/29/24 19:27 Pulse Oximetry 93 02/29/24 22:12 Oxygen Delivery Me thod Room Air 02/29/24 22:12 MDM - Abdominal Pain Medical Decision Making CT scan pending, awaiting radiology read. Has a history of large left ovarian cyst with moderate to large right ovarian cyst. Patient is concerned the cyst has ruptured or she is having torsion. Patient ultimately does not plan on having any further children and has a hysterectomy and oophorectomy scheduled for next month on the . Pain is being treated with IV morphine x 2 now and patient be handed off to walk-ins [employer] [facility]. Currently the CT scan has been performed and I reviewed it. The left-sided cyst seems still be there there is no free fluid in the abdomen. Awaiting radiology interpretation. Lab Data 02/29/24 20:11 02/29/24 19:47 Labs/Radiology: Radiology Impressions Abdomen/Pelvis CT 02/29/24 20:14 IMPRESSION: 1. Prominent fluid in the small bowel without dilation may reflect an enteritis. 2. Mid pelvis 11 cm fluid density circumscribed lesion similar to prior exam, concerning for a neoplastic process of ovarian origin, gynecological consultation advised. Small amount of mesenteric edema seen along the left anterolateral aspect of this structure, perhaps reflecting associated inflammatory change. 3. Hepatic steatosis. 4. Cholecystectomy. Laboratory Results WBC 14.23 10^3/uL (3.29-11.43) H 02/29/24 20:11 Corrected WBC Cancelled 02/29/24 19:47 RBC 5.85 10^6/uL (3.85-5.65) H 02/29/24 20:11 Hgb 16.40 g/dL (11.27-16.99) 02/29/24 20:11 Hct 49.3 % (36-47) H 02/29/24 20:11 MCV 84.3 fl (85-98) L 02/29/24 20:11 MCH 28.0 pg (27-33) 02/29/24 20:11 MCHC 33.3 g/dL (30-55) 02/29/24 20:11 RDW 13.6 % (12.1-15.1) 02/29/24 20:11 Plt Count 330 10^3/cmm (157-399) 02/29/24 20:11 MPV 10.6 fL (7.4-10.4) H 02/29/24 20:11 Gran % Cancelled 02/29/24 19:47 Neut % (Auto) 75.6 % 02/29/24 20:11 Lymph % (Auto) 13.4 % 02/29/24 20:11 Emanuel % (Auto) 7.7 % 02/29/24 20:11 Eos % (Auto) 1.8 % 02/29/24 20:11 Baso % (Auto) 0.4 % 02/29/24 20:11 Neut # (Auto) 10.77 10^3/uL (1.8-7.7) H 02/29/24 20:11 Lymph # (Auto) 1.9 10^3/uL (0.8-4.8) 02/29/24 20:11 Emanuel # (Auto) 1.1 10^3/uL (0.2-0.9) H 02/29/24 20:11 Eos # (Auto) 0.3 10^3/uL (0.0-0.8) 02/29/24 20:11 Baso # (Auto) 0.1 10^3/uL (0.0-0.1) 02/29/24 20:11 Absolute Gran (auto) Cancelled 02/29/24 19:47 Nucleated RBC % (auto) 0 % 02/29/24 20:11 Nucleated RBCs # 0.0 /100WBC 02/29/24 20:11 Sodium 136 mmol/L (136-145) 02/29/24 19:47 Potassium 4.1 mmol/L (3.5-5.1) 02/29/24 19:47 Chloride 100 mmol/L (98-107) 02/29/24 19:47 Carbon Dioxide 24 mmol/L (22-29) 02/29/24 19:47 Anion Gap 16.1 (5-19) 02/29/24 19:47 BUN 9 mg/dL (6-20) 02/29/24 19:47 Creatinine 0.6 mg/dL (0.5-0.9) 02/29/24 19:47 GFR Calculation 113.1 mL/min (90-130) 02/29/24 19:47 Glucose 144 mg/dL (65-115) H 02/29/24 19:47 Calculated Osmolality 283 mOsm/kg (285-295) L 02/29/24 19:47 Lactic Acid 0.8 mmol/L (0.5-2.2) 02/29/24 20:11 Calcium 9.4 mg/dL (8.5-10.5) 02/29/24 19:47 Total Bilirubin 1.0 mg/dL (0.15-1.2) 02/29/24 19:47 AST 47 U/L (0-32) H 02/29/24 19:47 ALT 119 U/L (0-33) H 02/29/24 19:47 Alkaline Phosphatase 220 U/L (35-105) H 02/29/24 19:47 Total Protein 8.5 g/dL (6.6-8.7) 02/29/24 19:47 Albumin 4.4 g/dL (3.5-5.2) 02/29/24 19:47 Globulin 4.1 g/dL (1.3-4.6) 02/29/24 19:47 HCG, Qual Negative (Negative) 02/29/24 19:47 Urine Color Yellow (Yellow) 02/29/24 19:49 Urine Appearance Clear (CLEAR) 02/29/24 19:49 Urine pH 5 (5-7) 02/29/24 19:49 Ur Specific [place] 1.015 (1.005-1.030) 02/29/24 19:49 Urine Protein Neg (Negative) 02/29/24 19:49 Urine Glucose (UA) 4+ (Normal) H 02/29/24 19:49 Urine Ketones 1+ (Negative) H 02/29/24 19:49 Urine Blood Neg (Negative) 02/29/24 19:49 Urine Nitrate Negative (Negative) 02/29/24 19:49 Urine Bilirubin Neg (Negative) 02/29/24 19:49 Urine Urobilinogen 1 mg/dL (Negative) H 02/29/24 19:49 Ur Leukocyte Esterase Negative (Negative) 02/29/24 19:49 Urine Opiates Screen Negative ng/mL (Negative) 02/29/24 19:49 Ur Barbiturates Screen Negative ng/mL (Negative) 02/29/24 19:49 Ur Phencyclidine Scrn Negative ng/mL (Negative) 02/29/24 19:49 Ur Amphetamines Screen Negative ng/mL (Negative) 02/29/24 19:49 U Benzodiazepines Scrn Negative ng/mL (Negative) 02/29/24 19:49 Urine Cocaine Screen Negative ng/mL (Negative) 02/29/24 19:49 U Marijuana (THC) Screen Negative ng/mL (Negative) 02/29/24 19:49 XR interpretation done by ED provider, pending radiology final review Discharge Plan Discharge Patient Disposition: Home Clinical Impression: Pelvic mass Abdominal pain Qualifiers: Abdominal location: left lower quadrant Qualified Code(s): R10.32 - Left lower quadrant pain Condition: Stable Prescriptions: No Action (DME) Omnipod 5 G6 Pods (Gen 5) Cartridge See Rx Instructions .Route Qty: 5 2RF Rx Instructions: As directed (DME) ASO to the Left Ankle See Rx Instructions .Route .MEDSUPPLY Qty: 1 0RF Rx Instructions: As directed ciclopirox 0.77 % cream 1 applic topical BID 28 Days Qty: 30 0RF Rx Instructions: Apply to hands twice daily for 4 weeks (DME) Diabetic shoes with 3 sets of inserts See Rx Instructions .Route .MEDSUPPLY Qty: 1 0RF Rx Instructions: As directed HOME (DME) lancets [Accu-Chek Fastclix Lancet Drum] Misc See Rx Instructions .ROUTE .MEDSUPPLY Qty: 100 1RF Rx Instructions: TWICE DAILY clobetasol 0.05 % ointment 1 applic topical BID 14 Days Qty: 60 1RF Rx Instructions: Apply to palm & trunk. Use for no more than 2 weeks per month. Not for use on face/skin folds. (DME) hinged knee brace See Rx Instructions .Route .MEDSUPPLY Qty: 1 0RF Rx Instructions: As directed (DME) 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 meter [Accu-Chek Guide Glucose Meter] [facility] [place] See Rx Instructions .Route Qty: 1 0RF Rx Instructions: As directed (DME) lancets [Accu-Chek Softclix Lancets] Misc See Rx Instructions .Route Qty: 100 0RF Rx Instructions: As directed (DME) Accu-Chek Guide test strips Strip See Rx Instructions .ROUTE .COMPLEX Qty: 200 0RF Dose Instruction: check UP TO TWICE DAILY Rx Instructions: check UP TO TWICE DAILY (DME) Dexcom G7 Sensor Device See Rx Instructions .Route Qty: 9 0RF Rx Instructions: As directed (DME) Dexcom G7 Environmental Education Specialist Misc See Rx Instructions .Route Qty: 1 0RF Rx Instructions: As directed omeprazole 40 mg capsule,delayed release(DR/EC) 40 mg PO BID PRN (Reason: acid reflux) Qty: 180 1RF montelukast [Singulair] 10 mg tablet 10 mg PO DAILY Qty: 90 1RF potassium chloride 20 mEq tablet extended release See Rx Instructions .ROUTE .COMPLEX Qty: 90 1RF Dose Instruction: TAKE 1 TABLET BY MOUTH EVERY DAY Rx Instructions: TAKE 1 TABLET BY MOUTH EVERY DAY Jardiance 25 mg tablet See Rx Instructions .ROUTE .COMPLEX Qty: 30 3RF Dose Instruction: TAKE 1 TABLET BY MOUTH EVERY DAY Rx Instructions: TAKE 1 TABLET BY MOUTH EVERY DAY insulin aspart U-100 [Novolog FlexPen U-100 Insulin] 100 unit/mL (3 mL) insulin pen See Rx Instructions .ROUTE .COMPLEX Qty: 27 3RF Dose Instruction: inject 10 units SUBCUTANEOUSLY THREE TIMES DAILY Rx Instructions: inject 10 units SUBCUTANEOUSLY THREE TIMES DAILY Imitrex 25 mg tablet See Rx Instructions .ROUTE .COMPLEX PRN (Reason: Migraine Headache) Qty: 30 1RF Rx Instructions: TAKE 1 TABLET BY MOUTH EVERY 2 HOURS NEEDED FOR MIGRAINE HEADACHE. MAX OF FOUR TABLETS PER 24 HOURS spironolactone 50 mg tablet 50 mg PO DAILY Qty: 90 3RF budesonide-formoterol [Symbicort] 160-4.5 mcg/actuation HFA aerosol inhaler See Rx Instructions .ROUTE .COMPLEX Qty: 10.2 2RF Dose Instruction: inhale TWO puffs BY MOUTH TWICE DAILY FOR copd Rx Instructions: inhale TWO puffs BY MOUTH TWICE DAILY FOR copd (DME) pen needle, diabetic [Droplet Pen Needle] 31 gauge x 3/16 needle See Rx Instructions .ROUTE .COMPLEX Qty: 300 0RF Dose Instruction: USE THREE TIMES DAILY Rx Instructions: USE THREE TIMES DAILY buspirone 10 mg tablet 20 mg PO TID Qty: 180 2RF citalopram 40 mg tablet 40 mg PO DAILY Qty: 90 0RF mirtazapine 15 mg tablet 15 mg PO .HS Qty: 30 2RF propranolol 20 mg tablet 20 mg PO BID PRN (Reason: anxiety) Qty: 60 2RF venlafaxine 150 mg capsule,extended release 24hr See Rx Instructions .ROUTE .COMPLEX Qty: 30 2RF Dose Instruction: TAKE ONE CAPSULE BY MOUTH EVERY DAY Rx Instructions: TAKE ONE CAPSULE BY MOUTH EVERY DAY furosemide 40 mg tablet See Rx Instructions .ROUTE .COMPLEX Qty: 95 2RF Dose Instruction: TAKE 1 TABLET BY MOUTH TWICE DAILY for 5 days THEN decrease TO ONE EVERY DAY thereafter Rx Instructions: TAKE 1 TABLET BY MOUTH TWICE DAILY for 5 days THEN decrease TO ONE EVERY DAY thereafter insulin glargine [Lantus Solostar U-100 Insulin] 100 unit/mL (3 mL) insulin pen 40 unit SUBCUT DAILY Qty: 45 0RF albuterol sulfate 90 mcg/actuation HFA aerosol inhaler See Rx Instructions .ROUTE .COMPLEX Qty: 8.5 5RF Dose Instruction: inhale TWO puffs BY MOUTH EVERY 6 HOURS as needed for SHORTNESS OF BREATH or wheezing Rx Instructions: inhale TWO puffs BY MOUTH EVERY 6 HOURS as needed for SHORTNESS OF BREATH or wheezing gabapentin 300 mg capsule 300 mg PO BID Qty: 180 1RF Mounjaro 15 mg/0.5 mL pen injector See Rx Instructions .ROUTE .COMPLEX Qty: 2 1RF Dose Instruction: INJECT 15MG SUBCUTANEOUSLY every week Rx Instructions: INJECT 15MG SUBCUTANEOUSLY every week oxycodone 5 mg tablet 5 mg PO Q6H PRN (Reason: pain postop) 7 Days Qty: 28 0RF Mounjaro 12.5 mg/0.5 mL pen injector 12.5 mg SUBCUT Q7D 30 Days Qty: 2 0RF Discharge Orders: Discharge ED (Routine); Ordered 02/29/24 Ordered By: Herb Nathan Referrals: Martínez Lovelace MD [Primary Care Provider] - Discharge Diet: Usual diet Discharge Activity: Increase activity as tolerated Patient Instructions: Abdominal Pain (ED) Activity Restrictions/Additional Instructions: Continue with routine care. Follow-up with primary care for further instructions. Return to ED for new concerns. Sign Out Sign Out Data: Patient Sign Out occurred on 02/29/24 at 22:31. Patient's care was discussed, and care was transferred from Noel Greco MD to TONYA Best. 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 Pain management contract signed Amenorrhea Asthma Spinal stenosis, thoracic region Morbid obesity with BMI of 60.0-69.9, adult Muscle spasms of both lower extremities Bilateral leg edema Bilateral chronic knee pain GERD (gastroesophageal reflux disease) Surgical History History of cholecystectomy Family History Father CAD (coronary artery disease) Diabetes Hypertension Seizures Bleeding disorder Hyperlipidemia Lung disease Psychiatric illness Stroke Family/Other Cancer Clotting disorder Hyperlipidemia Lung disease Psychiatric illness Stroke Mother Diabetes Hypertension Hyperlipidemia Lung disease Other Chronic kidney disease (CKD) Denies family history of Dementia Anesthesia complication Social History Smoking and tobacco/nicotine status: never used tobacco/nicotine Quit status (tobacco/nicotine): considering quitting Second hand smoke exposure: Yes Alcohol intake: former Year of sobriety/quit date alcohol: 2016 Substance/Drug Use: former Date of last use: MJ quit in 2021 with new pain management Caregiver/support person: Yes Household members: spouse and family Marital status: Current occupational status: disabled Current occupation: disabled Special lacey needs: No Course Vital Signs: Vital signs: Vital Signs Temperature 99.1 F 02/29/24 19:27 Pulse Rate 100 02/29/24 19:27 Respiratory Rate 18 02/29/24 22:30 Blood Pressure 151/89 02/29/24 19:27 Pulse Oximetry 93 02/29/24 22:12 Oxygen Delivery Me thod Room Air 02/29/24 22:12 MDM - Abdominal Pain Medical Decision Making CT scan pending, awaiting radiology read. Has a history of large left ovarian cyst with moderate to large right ovarian cyst. Patient is concerned the cyst has ruptured or she is having torsion. Patient ultimately does not plan on having any further children and has a hysterectomy and oophorectomy scheduled for next month on the . Pain is being treated with IV morphine x 2 now and patient be handed off to walk-ins [employer]. Currently the CT scan has been performed and I reviewed it. The left-sided cyst seems still be there there is no free fluid in the abdomen. Awaiting radiology interpretation. CT scan noted no acute abnormalities. Mass in the pelvis showed no changes. Patient had good control of pain and was stable and discharged home. Lab Data 02/29/24 20:11 02/29/24 19:47 Labs/Radiology: Radiology Impressions Abdomen/Pelvis CT 02/29/24 20:14 IMPRESSION: 1. Prominent fluid in the small bowel without dilation may reflect an enteritis. 2. Mid pelvis 11 cm fluid density circumscribed lesion similar to prior exam, concerning for a neoplastic process of ovarian origin, gynecological consultation advised. Small amount of mesenteric edema seen along the left anterolateral aspect of this structure, perhaps reflecting associated inflammatory change. 3. Hepatic steatosis. 4. Cholecystectomy. Laboratory Results WBC 14.23 10^3/uL (3.29-11.43) H 02/29/24 20:11 Corrected WBC Cancelled 02/29/24 19:47 RBC 5.85 10^6/uL (3.85-5.65) H 02/29/24 20:11 Hgb 16.40 g/dL (11.27-16.99) 02/29/24 20:11 Hct 49.3 % (36-47) H 02/29/24 20:11 MCV 84.3 fl (85-98) L 02/29/24 20:11 MCH 28.0 pg (27-33) 02/29/24 20:11 MCHC 33.3 g/dL (30-55) 02/29/24 20:11 RDW 13.6 % (12.1-15.1) 02/29/24 20:11 Plt Count 330 10^3/cmm (157-399) 02/29/24 20:11 MPV 10.6 fL (7.4-10.4) H 02/29/24 20:11 Gran % Cancelled 02/29/24 19:47 Neut % (Auto) 75.6 % 02/29/24 20:11 Lymph % (Auto) 13.4 % 02/29/24 20:11 Emanuel % (Auto) 7.7 % 02/29/24 20:11 Eos % (Auto) 1.8 % 02/29/24 20:11 Baso % (Auto) 0.4 % 02/29/24 20:11 Neut # (Auto) 10.77 10^3/uL (1.8-7.7) H 02/29/24 20:11 Lymph # (Auto) 1.9 10^3/uL (0.8-4.8) 02/29/24 20:11 Emanuel # (Auto) 1.1 10^3/uL (0.2-0.9) H 02/29/24 20:11 Eos # (Auto) 0.3 10^3/uL (0.0-0.8) 02/29/24 20:11 Baso # (Auto) 0.1 10^3/uL (0.0-0.1) 02/29/24 20:11 Absolute Gran (auto) Cancelled 02/29/24 19:47 Nucleated RBC % (auto) 0 % 02/29/24 20:11 Nucleated RBCs # 0.0 /100WBC 02/29/24 20:11 Sodium 136 mmol/L (136-145) 02/29/24 19:47 Potassium 4.1 mmol/L (3.5-5.1) 02/29/24 19:47 Chloride 100 mmol/L (98-107) 02/29/24 19:47 Carbon Dioxide 24 mmol/L (22-29) 02/29/24 19:47 Anion Gap 16.1 (5-19) 02/29/24 19:47 BUN 9 mg/dL (6-20) 02/29/24 19:47 Creatinine 0.6 mg/dL (0.5-0.9) 02/29/24 19:47 GFR Calculation 113.1 mL/min (90-130) 02/29/24 19:47 Glucose 144 mg/dL (65-115) H 02/29/24 19:47 Calculated Osmolality 283 mOsm/kg (285-295) L 02/29/24 19:47 Lactic Acid 0.8 mmol/L (0.5-2.2) 02/29/24 20:11 Calcium 9.4 mg/dL (8.5-10.5) 02/29/24 19:47 Total Bilirubin 1.0 mg/dL (0.15-1.2) 02/29/24 19:47 AST 47 U/L (0-32) H 02/29/24 19:47 ALT 119 U/L (0-33) H 02/29/24 19:47 Alkaline Phosphatase 220 U/L (35-105) H 02/29/24 19:47 Total Protein 8.5 g/dL (6.6-8.7) 02/29/24 19:47 Albumin 4.4 g/dL (3.5-5.2) 02/29/24 19:47 Globulin 4.1 g/dL (1.3-4.6) 02/29/24 19:47 HCG, Qual Negative (Negative) 02/29/24 19:47 Urine Color Yellow (Yellow) 02/29/24 19:49 Urine Appearance Clear (CLEAR) 02/29/24 19:49 Urine pH 5 (5-7) 02/29/24 19:49 Ur Specific [place] 1.015 (1.005-1.030) 02/29/24 19:49 Urine Protein Neg (Negative) 02/29/24 19:49 Urine Glucose (UA) 4+ (Normal) H 02/29/24 19:49 Urine Ketones 1+ (Negative) H 02/29/24 19:49 Urine Blood Neg (Negative) 02/29/24 19:49 Urine Nitrate Negative (Negative) 02/29/24 19:49 Urine Bilirubin Neg (Negative) 02/29/24 19:49 Urine Urobilinogen 1 mg/dL (Negative) H 02/29/24 19:49 Ur Leukocyte Esterase Negative (Negative) 02/29/24 19:49 Urine Opiates Screen Negative ng/mL (Negative) 02/29/24 19:49 Ur Barbiturates Screen Negative ng/mL (Negative) 02/29/24 19:49 Ur Phencyclidine Scrn Negative ng/mL (Negative) 02/29/24 19:49 Ur Amphetamines Screen Negative ng/mL (Negative) 02/29/24 19:49 U Benzodiazepines Scrn Negative ng/mL (Negative) 02/29/24 19:49 Urine Cocaine Screen Negative ng/mL (Negative) 02/29/24 19:49 U Marijuana (THC) Screen Negative ng/mL (Negative) 02/29/24 19:49 Discharge Plan Discharge Patient Disposition: Home Clinical Impression: Pelvic mass Abdominal pain Qualifiers: Abdominal location: left lower quadrant Qualified Code(s): R10.32 - Left lower quadrant pain Condition: Stable Prescriptions: No Action (DME) Omnipod 5 G6 Pods (Gen 5) Cartridge See Rx Instructions .Route Qty: 5 2RF Rx Instructions: As directed (DME) ASO to the Left Ankle See Rx Instructions .Route .MEDSUPPLY Qty: 1 0RF Rx Instructions: As directed ciclopirox 0.77 % cream 1 applic topical BID 28 Days Qty: 30 0RF Rx Instructions: Apply to hands twice daily for 4 weeks (DME) Diabetic shoes with 3 sets of inserts See Rx Instructions .Route .MEDSUPPLY Qty: 1 0RF Rx Instructions: As directed HOME (DME) lancets [Accu-Chek Fastclix Lancet Drum] Misc See Rx Instructions .ROUTE .MEDSUPPLY Qty: 100 1RF Rx Instructions: TWICE DAILY clobetasol 0.05 % ointment 1 applic topical BID 14 Days Qty: 60 1RF Rx Instructions: Apply to palm & trunk. Use for no more than 2 weeks per month. Not for use on face/skin folds. (DME) hinged knee brace See Rx Instructions .Route .MEDSUPPLY Qty: 1 0RF Rx Instructions: As directed (DME) 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 meter [Accu-Chek Guide Glucose Meter] Misc See Rx Instructions .Route Qty: 1 0RF Rx Instructions: As directed (DME) lancets [Accu-Chek Softclix Lancets] Misc See Rx Instructions .Route Qty: 100 0RF Rx Instructions: As directed (DME) Accu-Chek Guide test strips Strip See Rx Instructions .ROUTE .COMPLEX Qty: 200 0RF Dose Instruction: check UP TO TWICE DAILY Rx Instructions: check UP TO TWICE DAILY (DME) Dexcom G7 Sensor Device See Rx Instructions .Route Qty: 9 0RF Rx Instructions: As directed [place] [place] Dexcom G7 Environmental Education Specialist Misc See Rx Instructions .Route Qty: 1 0RF Rx Instructions: As directed omeprazole 40 mg capsule,delayed release(DR/EC) 40 mg PO BID PRN (Reason: acid reflux) Qty: 180 1RF montelukast [Singulair] 10 mg tablet 10 mg PO DAILY Qty: 90 1RF potassium chloride 20 mEq tablet extended release See Rx Instructions .ROUTE .COMPLEX Qty: 90 1RF Dose Instruction: TAKE 1 TABLET BY MOUTH EVERY DAY Rx Instructions: TAKE 1 TABLET BY MOUTH EVERY DAY Jardiance 25 mg tablet See Rx Instructions .ROUTE .COMPLEX Qty: 30 3RF Dose Instruction: TAKE 1 TABLET BY MOUTH EVERY DAY Rx Instructions: TAKE 1 TABLET BY MOUTH EVERY DAY insulin aspart U-100 [Novolog FlexPen U-100 Insulin] 100 unit/mL (3 mL) insulin pen See Rx Instructions .ROUTE .COMPLEX Qty: 27 3RF Dose Instruction: inject 10 units SUBCUTANEOUSLY THREE TIMES DAILY Rx Instructions: inject 10 units SUBCUTANEOUSLY THREE TIMES DAILY Imitrex 25 mg tablet See Rx Instructions .ROUTE .COMPLEX PRN (Reason: Migraine Headache) Qty: 30 1RF Rx Instructions: TAKE 1 TABLET BY MOUTH EVERY 2 HOURS NEEDED FOR MIGRAINE HEADACHE. MAX OF FOUR TABLETS PER 24 HOURS spironolactone 50 mg tablet 50 mg PO DAILY Qty: 90 3RF budesonide-formoterol [Symbicort] 160-4.5 mcg/actuation HFA aerosol inhaler See Rx Instructions .ROUTE .COMPLEX Qty: 10.2 2RF Dose Instruction: inhale TWO puffs BY MOUTH TWICE DAILY FOR copd Rx Instructions: inhale TWO puffs BY MOUTH TWICE DAILY FOR copd (DME) pen needle, diabetic [Droplet Pen Needle] 31 gauge x 3/16 needle See Rx Instructions .ROUTE .COMPLEX Qty: 300 0RF Dose Instruction: USE THREE TIMES DAILY Rx Instructions: USE THREE TIMES DAILY buspirone 10 mg tablet 20 mg PO TID Qty: 180 2RF citalopram 40 mg tablet 40 mg PO DAILY Qty: 90 0RF mirtazapine 15 mg tablet 15 mg PO .HS Qty: 30 2RF propranolol 20 mg tablet 20 mg PO BID PRN (Reason: anxiety) Qty: 60 2RF venlafaxine 150 mg capsule,extended release 24hr See Rx Instructions .ROUTE .COMPLEX Qty: 30 2RF Dose Instruction: TAKE ONE CAPSULE BY MOUTH EVERY DAY Rx Instructions: TAKE ONE CAPSULE BY MOUTH EVERY DAY furosemide 40 mg tablet See Rx Instructions .ROUTE .COMPLEX Qty: 95 2RF Dose Instruction: TAKE 1 TABLET BY MOUTH TWICE DAILY for 5 days THEN decrease TO ONE EVERY DAY thereafter Rx Instructions: TAKE 1 TABLET BY MOUTH TWICE DAILY for 5 days THEN decrease TO ONE EVERY DAY thereafter insulin glargine [Lantus Solostar U-100 Insulin] 100 unit/mL (3 mL) insulin pen 40 unit SUBCUT DAILY Qty: 45 0RF albuterol sulfate 90 mcg/actuation HFA aerosol inhaler See Rx Instructions .ROUTE .COMPLEX Qty: 8.5 5RF Dose Instruction: inhale TWO puffs BY MOUTH EVERY 6 HOURS as needed for SHORTNESS OF BREATH or wheezing Rx Instructions: inhale TWO puffs BY MOUTH EVERY 6 HOURS as needed for SHORTNESS OF BREATH or wheezing gabapentin 300 mg capsule 300 mg PO BID Qty: 180 1RF Mounjaro 15 mg/0.5 mL pen injector See Rx Instructions .ROUTE .COMPLEX Qty: 2 1RF Dose Instruction: INJECT 15MG SUBCUTANEOUSLY every week Rx Instructions: INJECT 15MG SUBCUTANEOUSLY every week oxycodone 5 mg tablet 5 mg PO Q6H PRN (Reason: pain postop) 7 Days Qty: 28 0RF Mounjaro 12.5 mg/0.5 mL pen injector 12.5 mg SUBCUT Q7D 30 Days Qty: 2 0RF Discharge Orders: Discharge ED (Routine); Ordered 02/29/24 Ordered By: Herb Nathan Referrals: Martínez Lovelace MD [Primary Care Provider] - Discharge Diet: Usual diet Discharge Activity: Increase activity as tolerated Patient Instructions: Abdominal Pain (ED) Activity Restrictions/Additional Instructions: Continue with routine care. Follow-up with primary care for further instructions. Return to ED for new concerns. Sign Out Sign Out Data: Patient Sign Out occurred on 02/29/24 at 22:31. Patient's care was discussed, and care was transferred from Noel Greco MD to TONYA Best. Coding Level of Care Code ED Sole Tier for Leonela Escobedo
[2024-02-29 22:30] VITALS: RESP 18
[2024-02-29 22:55] VITALS: BP 118/62; PULSE 87; RESP 18; O2SAT 93
== END 2024-02-29 22:56 | disposition home or self-care (01) ==
PROVIDERS: Emergency Medicine; Emergency Provider Nurse Practitioner Family; PCP Family Medicine
DX: R10.32 Left lower quadrant pain (principal); R19.00 Intra-abdominal and pelvic swelling, mass and lump, unspecified site; Z79.85 Long-term (current) use of injectable non-insulin antidiabetic drugs; Z79.4 Long term (current) use of insulin; Z77.22 Contact with and (suspected) exposure to environmental tobacco smoke (acute) (chronic); E11.9 Type 2 diabetes mellitus without complications; E78.5 Hyperlipidemia, unspecified
CPT/HCPCS: 36415; 74177; 80053; 80306; 81003; 83605; 84703; 85025; 96374; 96375; 96376; 99285; J2270; J2405; Q9967

== ENCOUNTER 2024-05-31 11:31 | Oncology outpatient (recurring) (ONCR) | payer MEDICARE, SELFPAY ==
[2024-05-31 12:38] LABS: Basophils # 0.1 10^3/uL (0.0-0.1); Basophils % 0.4 %; Eosinophils # 0.2 10^3/uL (0.0-0.8); Eosinophils % 1.2 %; Hematocrit 50.6 % (36-47); Lymphocytes # 2.8 10^3/uL (0.8-4.8); Lymphocytes % 15.1 %; Mean Corpuscular HGB Conc 33.2 g/dL (30-55); Mean Corpuscular Hemoglobin 27.4 pg (27-33); Mean Corpuscular Volume 82.4 fl (85-98); Mean Platelet Volume 10.7 fL (7.4-10.4); Monocytes # 1.2 10^3/uL (0.2-0.9); Monocytes % 6.3 %; Neutrophils # 13.85 10^3/uL (1.8-7.7); Nucleated Red Blood Cells % 0 %; Platelet Count 345 10^3/cmm (157-399); Red Blood Count 6.14 10^6/uL (3.85-5.65); Red Cell Distribution Width 13.7 % (12.1-15.1); White Blood Count 18.24 10^3/uL (3.29-11.43)
[2024-05-31 13:01] LABS: Alanine Aminotransferase 18 U/L (0-33); Albumin Level 3.9 g/dL (3.5-5.2); Alkaline Phosphatase 120 U/L (35-105); Aspartate Amino Transferase 9 U/L (0-32); Blood Urea Nitrogen 12 mg/dL (6-20); Calcium 8.9 mg/dL (8.5-10.5); Carbon Dioxide 22 mmol/L (22-29); Chloride 104 mmol/L (98-107); Globulin 3.7 g/dL (1.3-4.6); Glomerular Filtration Rate 113.1 mL/min (90-130); Glucose 130 mg/dL (65-115); Osmolality Calculated 288 mOsm/kg (285-295); Sodium 138 mmol/L (136-145); Total Bilirubin 0.3 mg/dL (0.15-1.2); Total Protein 7.6 g/dL (6.6-8.7)
[2024-05-31 14:25] LABS: Erythrocyte Sedimentation Rate 42 mm/hr (0-15)
[2024-05-31 14:35] LABS: C Reactive Protein 39.6 mg/L (0.0-4.9); Lactate Dehydrogenase 160 U/L (135-214)
== END 2024-06-07 23:59 | disposition home or self-care (01) ==
PROVIDERS: Nurse Practitioner Family; PCP Family Medicine; Visit Provider Internal Medicine Medical Oncology
DX: D72.829 Elevated white blood cell count, unspecified (principal); D75.1 Secondary polycythemia; Z71.6 Tobacco abuse counseling
CPT/HCPCS: 36415; 80053; 83615; 85025; 85651; 86140; 99214

== ENCOUNTER 2024-06-13 11:51 | Emergency (ER) | payer MEDICARE, MEDICAID, SELFPAY ==
[2024-06-13 12:20] VITALS: BP 162/85; PULSE 115; RESP 16; TEMP 36.9; O2SAT 98
--- NOTE | 2024-06-13 13:09 | ED_ITS ---
HPI - Skin/Abscess/Foreign Bdy General: Chief complaint: Skin/Abscess/Foreign Body Stated complaint: spot on back Time Seen by Provider: 06/13/24 13:08 History of Present Illness: 38-year-old female comes in today for co mplaints of a sore to her right buttocks. Patient reports noticing it about a week ago but it has worsened and now the pain is much more unbearable. Patient appears nontoxic. Patient appears in no acute distress. Respirations are even lungs are clear to auscu ltation. Related Data Previous Rx's Medication Instructions Recorded lancets (Accu-Chek Fastclix Lancet #100 ea 04/18/20 Drum) ASO to the Left Ankle #1 ea 05/16/22 ciclopirox 0.77 % topical cream 1 applic topical BID 4 weeks #30 07/15/22 grams clobetasol 0.05 % topical ointment 1 applic topical BID 2 weeks #60 09/11/22 grams Diabetic shoes with 3 sets of #1 ea 09/25/22 inserts hinged knee brace #1 ea 12/26/22 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 meter (Accu-Chek #1 ea 01/02/23 Guide Glucose Meter) lancets (Accu-Chek Softclix #100 ea 01/02/23 Lancets) blood sugar diagnostic (Accu-Chek #200 strips 04/04/23 Guide test strips) insulin pump cart,automated,BT #5 ea 04/07/23 (Omnipod 5 G6 Pods (Gen 5) subcutaneous cartridge) 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 meter,continuous #1 ea 04/28/23 (Dexcom G7 Aircraft Skin Burnisher) 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 sensor (Dexcom G7 #9 ea 04/28/23 Sensor device) insulin aspart U-100 100 unit/mL See Rx Instructions .Route 11/28/23 (3 mL) subcutaneous pen (Novolog .COMPLEX #27 mL FlexPen U-100 Insulin aspart) spironolactone 50 mg tablet 50 mg PO DAILY #90 tabs 12/08/23 furosemide 40 mg tablet See Rx Instructions .Route 01/05/24 .COMPLEX #95 ea insulin glargine 100 unit/mL (3 40 unit (0.4 mL) SUBCUT DAILY #45 01/22/24 mL) subcutaneous pen (Lantus mL Solostar U-100 Insulin) albuterol sulfate 90 mcg/actuation See Rx Instructions .Route 02/04/24 aerosol inhaler .COMPLEX #8.5 grams gabapentin 300 mg capsule 300 mg PO BID #180 caps 02/05/24 oxycodone 5 mg tablet 5 mg PO Q6H PRN pain postop 7 days 02/20/24 #28 tabs tirzepatide 12.5 mg/0.5 mL 12.5 mg (0.5 mL) SUBCUT Q7D 1 02/26/24 subcutaneous pen injector month #2 mL (Mounjaro) tirzepatide 15 mg/0.5 mL See Rx Instructions .Route 03/03/24 subcutaneous pen injector .COMPLEX #2 mL (Mounjaro) venlafaxine 150 mg See Rx Instructions .Route 03/10/24 capsule,extended release 24 hr .COMPLEX #30 caps pen needle, diabetic 32 gauge x #300 ea 03/18/2409/11 (BD Ultra-Fine Micro Pen Needle) empagliflozin 25 mg tablet See Rx Instructions .Route 04/02/24 (Jardiance) .COMPLEX #30 tabs potassium chloride 20 mEq See Rx Instructions .Route 04/02/24 tablet,extended release .COMPLEX #90 tabs montelukast 10 mg tablet See Rx Instructions .Route 04/05/24 .COMPLEX #90 tabs buspirone 10 mg tablet 20 mg (2 x 10 mg) PO TID #180 tabs 04/13/24 citalopram 40 mg tablet 40 mg PO DAILY #90 tabs 04/13/24 doxepin 50 mg capsule 50 mg PO .HS #30 caps 04/13/24 omeprazole 40 mg capsule,delayed 40 mg PO BID PRN acid reflux #180 05/04/24 release caps sumatriptan succinate 25 mg tablet See Rx Instructions .Route 05/31/24 (Imitrex) .COMPLEX PRN Migraine Headache #30 tabs budesonide-formoterol HFA 160 See Rx Instructions .Route 06/07/24 mcg-4.5 mcg/actuation aerosol .COMPLEX #10.2 grams inhaler (Symbicort) sulfamethoxazole 800 1 tab PO BID 10 days #20 tabs 06/13/24 mg-trimethoprim 160 mg tablet Allergies Allergy/AdvReac Type Severity Reaction Status Date / Time atorvastatin Allergy Severe transaminit Verified 05/31/24 13:27 is ibuprofen Allergy Mild ALGY-Swell Verified 05/31/24 13:27 Lip/Tongue/Throat acetaminophen [From Tylenol] Allergy liver Verified 05/31/24 13:27 reaction diclofenac Allergy ADR-Vomitin Verified 05/31/24 13:27 g ketorolac [From Toradol] Allergy sick Verified 05/31/24 13:27 Review of Systems General: Reports: 10 or more systems reviewed and unremarkable except in HPI and below Skin/Breast: Reports: new lesions PFSH ED PFSH: Medical History Amenorrhea Asthma Atypical chest pain Bilateral chronic knee pain Bilateral leg edema Chronic anemia Dyslipidemia GERD (gastroesophageal reflux disease) JESSE (iron deficiency anemia) MCC (current) use of opiate analgesic Migraine Morbid obesity with BMI of 60.0-69.9, adult Muscle spasms of both lower extremities DHEERAJ (obstructive sleep apnea) Pain management contract signed Spinal stenosis, thoracic region Tobacco use disorder Type 2 diabetes mellitus, with long-term current use of insulin Surgical History History of cholecystectomy Family History Father CAD (coronary artery disease) Diabetes Hypertension Seizures Bleeding disorder Hyperlipidemia Lung disease Psychiatric illness Stroke Family/Other Cancer Clotting disorder Hyperlipidemia Lung disease Psychiatric illness Stroke Mother Diabetes Hypertension Hyperlipidemia Lung disease Other Chronic kidney disease (CKD) Denies family history of Dementia Anesthesia complication Social History Smoking and tobacco/nicotine status: current some day tobacco/nicotine user cigarettes Packs smoked per day: 2 Years cigarettes smoked: 20 [ Other cigarette details: 2PPD, 30PY onset at 15yo] Quit status (tobacco/nicotine): considering quitting Second hand smoke exposure: Yes Alcohol intake: former Year of sobriety/quit date alcohol: 2016 Substance/Drug Use: former Date of last use: MJ quit in 2021 with new pain management Caregiver/support person: Yes Household members: spouse and family Marital status: Current occupational status: disabled Current occupation: disabled Special lacey needs: No Female Reproductive History: Para: 1 Physical Exam Const: COMMON NORMALS: alert HENMT: COMMON NORMALS: normocephalic HEAD & SCALP: normocephalic Neck/C-Spine: COMMON NORMALS: full ROM Resp: COMMON NORMALS: normal respiratory effort Cardio: COMMON NORMALS: regular rate RATE: regular rate Extremity: COMMON NORMALS: normal to inspection Neuro: SENSORIUM/ORIENTATION: Yes alert Skin: LESIONS: lesion noted (Tender fluctuant lesion right buttocks) Procedures Abscess I/D Site: odette-rectal Side (if applicable): right Local Anesthetic: lidocaine 2% and with epi Amount of anesthesia used (mL): 3 Technique: incised with #11 blade Amount of fluid expressed (mL): 15 Irrigation: Yes Packing used?: none Complications: other (No obvious) Course Vital Signs: Vital signs: Vital Signs Temperature 98.4 F 06/13/24 12:20 Pulse Rate 115 H 06/13/24 12:20 Respiratory Rate 16 06/13/24 12:20 Blood Pressure 162/85 06/13/24 12:20 Pulse Oximetry 98 06/13/24 12:20 Oxygen Delivery Me thod Room Air 06/13/24 12:20 MDM - Skin/Abscess/Foreign Bdy Medicial Decision Making 38-year-old female comes in today with an abscess to her right buttock. On exam we note 1 fluctuant central lesion with some surrounding erythema and induration. This is to the right medial buttock. Differential diagnosis includes abscess, cellulitis, perirectal abscess versus anal rectal abscess. Simple abscess was identified. Under local anesthetic a 2 cm incision was made into the fluctuant mass and immediate return of purulent dark bloody discharge. Patient be started on Bactrim for bacterial coverage. Patient reported relief of discomfort after drainage of approximately 10 to 15 mL of purulent material. Wound was irrigated with saline. Patient tolerated well. Patient discharged home on Bactrim DS. No radiology studies performed this visit Discharge Plan Discharge Patient Disposition: Home Clinical Impression: Abscess of buttock, right Condition: Stable Prescriptions: New sulfamethoxazole-trimethoprim 800-160 mg tablet 1 tab PO BID 10 Days Qty: 20 0RF No Action (DME) Omnipod 5 G6 Pods (Gen 5) Cartridge See Rx Instructions .Route Qty: 5 2RF Rx Instructions: As directed doxepin 50 mg capsule 50 mg PO .HS Qty: 30 2RF buspirone 10 mg tablet 20 mg PO TID Qty: 180 2RF citalopram 40 mg tablet 40 mg PO DAILY Qty: 90 0RF (DME) ASO to the Left Ankle See Rx Instructions .Route .MEDSUPPLY Qty: 1 0RF Rx Instructions: As directed ciclopirox 0.77 % cream 1 applic topical BID 28 Days Qty: 30 0RF Rx Instructions: Apply to hands twice daily for 4 weeks (DME) Diabetic shoes with 3 sets of inserts See Rx Instructions .Route .MEDSUPPLY Qty: 1 0RF Rx Instructions: As directed HOME (DME) lancets [Accu-Chek Fastclix Lancet Drum] Misc See Rx Instructions .ROUTE .MEDSUPPLY Qty: 100 1RF Rx Instructions: TWICE DAILY clobetasol 0.05 % ointment 1 applic topical BID 14 Days Qty: 60 1RF Rx Instructions: Apply to palm & trunk. Use for no more than 2 weeks per month. Not for use on face/skin folds. (DME) hinged knee brace See Rx Instructions .Route .MEDSUPPLY Qty: 1 0RF Rx Instructions: As directed (DME) 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 meter [Accu-Chek Guide Glucose Meter] Misc See Rx Instructions .Route Qty: 1 0RF Rx Instructions: As directed (DME) lancets [Accu-Chek Softclix Lancets] Misc See Rx Instructions .Route Qty: 100 0RF Rx Instructions: As directed (DME) Accu-Chek Guide test strips Strip See Rx Instructions .ROUTE .COMPLEX Qty: 200 0RF Dose Instruction: check UP TO TWICE DAILY Rx Instructions: check UP TO TWICE DAILY (DME) Dexcom G7 Sensor Device See Rx Instructions .Route Qty: 9 0RF Rx Instructions: As directed (DME) Dexcom G7 Aircraft Skin Burnisher Misc See Rx Instructions .Route Qty: 1 0RF Rx Instructions: As directed insulin aspart U-100 [Novolog FlexPen U-100 Insulin] 100 unit/mL (3 mL) insu indigo pen See Rx Instructions .ROUTE .COMPLEX Qty: 27 3RF Dose Instruction: inject 10 units SUBCUTANEOUSLY THREE TIMES DAILY Rx Instructions: inject 10 units SUBCUTANEOUSLY THREE TIMES DAILY spironolactone 50 mg tablet 50 mg PO DAILY Qty: 90 3RF furosemide 40 mg tablet See Rx Instructions .ROUTE .COMPLEX Qty: 95 2RF Dose Instruction: TAKE 1 TABLET BY MOUTH TWICE DAILY for 5 days THEN decrease TO ONE EVERY DAY thereafter Rx Instructions: TAKE 1 TABLET BY MOUTH TWICE DAILY for 5 days THEN decrease TO ONE EVERY DAY thereafter insulin glargine [Lantus Solostar U-100 Insulin] 100 unit/mL (3 mL) insulin pen 40 unit SUBCUT DAILY Qty: 45 0RF albuterol sulfate 90 mcg/actuation HFA aerosol inhaler See Rx Instructions .ROUTE .COMPLEX Qty: 8.5 5RF Dose Instruction: inhale TWO puffs BY MOUTH EVERY 6 HOURS as needed for SHORTNESS OF BREATH or wheezing Rx Instructions: inhale TWO puffs BY MOUTH EVERY 6 HOURS as needed for SHORTNESS OF BREATH or wheezing gabapentin 300 mg capsule 300 mg PO BID Qty: 180 1RF oxycodone 5 mg tablet 5 mg PO Q6H PRN (Reason: pain postop) 7 Days Qty: 28 0RF Mounjaro 12.5 mg/0.5 mL pen injector 12.5 mg SUBCUT Q7D 30 Days Qty: 2 0RF Mounjaro 15 mg/0.5 mL pen injector See Rx Instructions .ROUTE .COMPLEX Qty: 2 1RF Dose Instruction: inject 15mg SUBCUTANEOUSLY every SEVEN DAYS Rx Instructions: inject 15mg SUBCUTANEOUSLY every SEVEN DAYS venlafaxine 150 mg capsule,extended release 24hr See Rx Instructions .ROUTE .COMPLEX Qty: 30 2RF Dose Instruction: TAKE ONE CAPSULE BY MOUTH EVERY DAY Rx Instructions: TAKE ONE CAPSULE BY MOUTH EVERY DAY (DME) pen needle, diabetic [BD Ultra-Fine Micro Pen Needle] 32 gauge x 1/4 needle See Rx Instructions .ROUTE .COMPLEX Qty: 300 0RF Dose Instruction: USE THREE TIMES DAILY Rx Instructions: USE THREE TIMES DAILY potassium chloride 20 mEq tablet extended release See Rx Instructions .ROUTE .COMPLEX Qty: 90 1RF Dose Instruction: TAKE 1 TABLET BY MOUTH EVERY DAY Rx Instructions: TAKE 1 TABLET BY MOUTH EVERY DAY Jardiance 25 mg tablet See Rx Instructions .ROUTE .COMPLEX Qty: 30 0RF Dose Instruction: TAKE 1 TABLET BY MOUTH EVERY DAY Rx Instructions: TAKE 1 TABLET BY MOUTH EVERY DAY montelukast 10 mg tablet See Rx Instructions .ROUTE .COMPLEX Qty: 90 1RF Dose Instruction: TAKE 1 TABLET BY MOUTH EVERY DAY Rx Instructions: TAKE 1 TABLET BY MOUTH EVERY DAY omeprazole 40 mg capsule,delayed release(DR/EC) 40 mg PO BID PRN (Reason: acid reflux) Qty: 180 0RF Imitrex 25 mg tablet See Rx Instructions .ROUTE .COMPLEX PRN (Reason: Migraine Headache) Qty: 30 1RF Rx Instructions: TAKE 1 TABLET BY MOUTH EVERY 2 HOURS NEEDED FOR MIGRAINE HEADACHE. MAX OF FOUR TABLETS PER 24 HOURS budesonide-formoterol [Symbicort] 160-4.5 mcg/actuation HFA aerosol inhaler See Rx Instructions .ROUTE .COMPLEX Qty: 10.2 2RF Dose Instruction: inhale TWO puffs BY MOUTH TWICE DAILY FOR copd Rx Instructions: inhale TWO puffs BY MOUTH TWICE DAILY FOR copd Discharge Orders: Discharge ED (Routine); Ordered 06/13/24 Ordered By: Herb Nathan Referrals: Martínez Lovelace MD [Primary Care Provider] - Discharge Diet: Usual diet Discharge Activity: Increase activity as tolerated Patient Instructions: Abscess Incision and Drainage (DC) Activity Restrictions/Additional Instructions: Take antibiotics as directed. Use warm moist packs to the area for discomfort. Follow-up with primary care in 2 to 3 days for recheck. Return to ED for new concerns. Coding Level of Care Code ED Ambulance Assistant for Leonela Escobedo
[2024-06-13] MEDS: sulfamethoxazole-trimeth DS 160-800 mg Tablet 1 TAB PO (13:36)
[2024-06-13 13:47] VITALS: BP 150/90; PULSE 100; RESP 18; O2SAT 98
== END 2024-06-13 13:49 | disposition home or self-care (01) ==
PROVIDERS: Emergency Provider Nurse Practitioner Family; PCP Family Medicine
DX: L02.31 Cutaneous abscess of buttock (principal); Z79.85 Long-term (current) use of injectable non-insulin antidiabetic drugs; Z79.4 Long term (current) use of insulin; F17.210 Nicotine dependence, cigarettes, uncomplicated; E78.5 Hyperlipidemia, unspecified; E11.9 Type 2 diabetes mellitus without complications
CPT/HCPCS: 10060; 99283

== ENCOUNTER → 2024-06-21 10:33 | Outpatient (BNVA) | payer MEDICARE, MEDICAID, SELFPAY | PROVIDERS: PCP Family Medicine; Visit Provider Internal Medicine Hematology & Oncology | DX: E11.9 Type 2 diabetes mellitus without complications (principal); Z79.4 Long term (current) use of insulin | CPT/HCPCS: 80061; 83036 ==

== ENCOUNTER → 2024-07-27 08:50 | Outpatient (BNVA) | payer MEDICARE, MEDICAID, SELFPAY | PROVIDERS: PCP Family Medicine; Visit Provider Podiatrist Foot & Ankle Surgery | DX: E11.8 Type 2 diabetes mellitus with unspecified complications (principal); M21.41 Flat foot [pes planus] (acquired), right foot; M21.42 Flat foot [pes planus] (acquired), left foot; E11.49 Type 2 diabetes mellitus with other diabetic neurological complication; Z79.4 Long term (current) use of insulin | CPT/HCPCS: 99213 ==

== ENCOUNTER 2024-08-23 13:02 | Oncology outpatient (recurring) (ONCR) | payer MEDICARE, MEDICAID, SELFPAY ==
[2024-08-23 13:39] LABS: Basophils # 0.1 10^3/uL (0.0-0.1); Basophils % 0.4 %; Eosinophils # 0.2 10^3/uL (0.0-0.8); Eosinophils % 1.6 %; Hematocrit 48.7 % (36-47); Lymphocytes # 2.2 10^3/uL (0.8-4.8); Lymphocytes % 18.2 %; Mean Corpuscular HGB Conc 33.3 g/dL (30-55); Mean Corpuscular Hemoglobin 27.4 pg (27-33); Mean Corpuscular Volume 82.3 fl (85-98); Mean Platelet Volume 11.1 fL (7.4-10.4); Monocytes # 0.8 10^3/uL (0.2-0.9); Monocytes % 6.6 %; Nucleated Red Blood Cells % 0 %; Platelet Count 269 10^3/cmm (157-399); Red Blood Count 5.92 10^6/uL (3.85-5.65); White Blood Count 12.06 10^3/uL (3.29-11.43)
[2024-08-23 13:59] LABS: Alanine Aminotransferase 30 U/L (0-33); Albumin Level 3.7 g/dL (3.5-5.2); Alkaline Phosphatase 157 U/L (35-105); Aspartate Amino Transferase 11 U/L (0-32); Blood Urea Nitrogen 12 mg/dL (6-20); Calcium 8.8 mg/dL (8.5-10.5); Carbon Dioxide 20 mmol/L (22-29); Chloride 101 mmol/L (98-107); Globulin 3.4 g/dL (1.3-4.6); Glomerular Filtration Rate 138.8 mL/min (90-130); Glucose 333 mg/dL (65-115); Lactate Dehydrogenase 143 U/L (135-214); Osmolality Calculated 287 mOsm/kg (285-295); Sodium 132 mmol/L (136-145); Total Bilirubin 0.5 mg/dL (0.15-1.2); Total Protein 7.1 g/dL (6.6-8.7)
[2024-08-27 18:45] LABS: JAK2 V617 Block Specimen ID NG; JAK2 V617 Mutation NOT DETECTED (NOT DETECTED); JAK2 V617 Specimen Source BLOOD
== END 2024-09-07 23:59 | disposition home or self-care (01) ==
LOC: ONCMED 13:02
PROVIDERS: Nurse Practitioner Family; PCP Family Medicine; Visit Provider Internal Medicine Medical Oncology
DX: D72.829 Elevated white blood cell count, unspecified (principal); D75.1 Secondary polycythemia
CPT/HCPCS: 36415; 80053; 81270; 83615; 85025; 88374

== ENCOUNTER → 2024-09-15 10:59 | Outpatient (BNVA) | payer MEDICARE, MEDICAID, SELFPAY | PROVIDERS: PCP Family Medicine; Visit Provider Nurse Practitioner Family | DX: L20.89 Other atopic dermatitis (principal); L70.0 Acne vulgaris; L83 Acanthosis nigricans; L72.11 Pilar cyst; D48.5 Neoplasm of uncertain behavior of skin | CPT/HCPCS: 11104; 99214 ==

== ENCOUNTER → 2024-12-02 08:42 | Outpatient (BNVA) | payer MEDICARE, MEDICAID, SELFPAY | PROVIDERS: PCP Family Medicine; Visit Provider Internal Medicine | DX: E11.9 Type 2 diabetes mellitus without complications (principal); Z79.4 Long term (current) use of insulin; K76.0 Fatty (change of) liver, not elsewhere classified; E11.49 Type 2 diabetes mellitus with other diabetic neurological complication; E78.2 Mixed hyperlipidemia; R74.01 Elevation of levels of liver transaminase levels | CPT/HCPCS: 99214 ==

== ENCOUNTER 2024-12-02 11:45 | Oncology outpatient (recurring) (ONCR) | payer MEDICARE, MEDICAID, SELFPAY ==
[2024-11-10 09:41] LABS: Basophils % 0.3 %; Eosinophils # 0.2 10^3/uL (0.0-0.8); Eosinophils % 1.5 %; Hematocrit 52.5 % (36-47); Lymphocytes # 2.2 10^3/uL (0.8-4.8); Lymphocytes % 18.5 %; Mean Corpuscular HGB Conc 33.1 g/dL (30-55); Mean Corpuscular Hemoglobin 27.8 pg (27-33); Mean Platelet Volume 10.5 fL (7.4-10.4); Monocytes # 0.8 10^3/uL (0.2-0.9); Monocytes % 6.4 %; Neutrophils # 8.52 10^3/uL (1.8-7.7); Neutrophils % 72.3 %; Nucleated Red Blood Cells % 0 %; Platelet Count 289 10^3/cmm (157-399); Red Blood Count 6.25 10^6/uL (3.85-5.65); Red Cell Distribution Width 13.4 % (12.1-15.1); White Blood Count 11.78 10^3/uL (3.29-11.43)
[2024-11-10 10:06] LABS: Alanine Aminotransferase 175 U/L (0-33); Albumin Level 4.2 g/dL (3.5-5.2); Alkaline Phosphatase 225 U/L (35-105); Aspartate Amino Transferase 92 U/L (0-32); Blood Urea Nitrogen 10 mg/dL (6-20); Calcium 9.1 mg/dL (8.5-10.5); Carbon Dioxide 23 mmol/L (22-29); Chloride 101 mmol/L (98-107); Globulin 3.3 g/dL (1.3-4.6); Glomerular Filtration Rate 112.5 mL/min (90-130); Glucose 211 mg/dL (65-115); Osmolality Calculated 289 mOsm/kg (285-295); Sodium 137 mmol/L (136-145); Total Bilirubin 0.7 mg/dL (0.15-1.2); Total Protein 7.5 g/dL (6.6-8.7)
[2024-11-10 10:09] LABS: Lactate Dehydrogenase 226 U/L (135-214)
[2024-11-10 11:41] VITALS: BP 154/74; PULSE 96
--- NOTE | 2024-12-02 11:45 | US_ITS ---
WS: [id number] ULTRASOUND ABDOMEN LIMITED CLINICAL INFORMATION: elevated liver enzymes COMPARISON: None. FINDINGS: Liver Size: Enlarged Craniocaudal length: 21.8 cm. Echogenicity: Coarse Surface nodularity: None. Mass (size and location): None. Bile ducts Intrahepatic ducts: Normal. Common bile duct diameter: 0.4 cm. Gallbladder Prior cholecystectomy Pancreas Normal as visualized. Right kidney: Normal. Hydronephrosis: None. Size: 11.9 cm x 6.2 cm x 6.1 cm. Abdominal aorta and IVC Visualized portions are normal. Ascites: None. US/US abdomen limited [id number] IMPRESSION: Difficult study due to body habitus. 1. Hepatic steatosis. Hepatomegaly. 2. Prior cholecystectomy. 3. No hydronephrosis in the RIGHT kidney.
== END 2024-12-06 23:59 | disposition home or self-care (01) ==
LOC: RAD 12-03 → ONCMED 12-06 09:02
PROVIDERS: PCP Family Medicine; Visit Provider Nurse Practitioner Family
DX: R74.8 Abnormal levels of other serum enzymes (principal); K76.0 Fatty (change of) liver, not elsewhere classified; Z90.49 Acquired absence of other specified parts of digestive tract
CPT/HCPCS: 36415; 76705; 80053; 83615; 85025; 99195; 99214

== ENCOUNTER 2024-12-08 07:51 | Oncology outpatient (recurring) (ONCR) | payer MEDICARE, MEDICAID, SELFPAY ==
[2024-12-08 08:37] LABS: Basophils # 0.1 10^3/uL (0.0-0.1); Basophils % 0.5 %; Eosinophils # 0.3 10^3/uL (0.0-0.8); Eosinophils % 2.2 %; Hematocrit 46.2 % (36-47); Lymphocytes # 2.4 10^3/uL (0.8-4.8); Lymphocytes % 18.8 %; Mean Corpuscular HGB Conc 33.1 g/dL (30-55); Mean Corpuscular Volume 84.5 fl (85-98); Mean Platelet Volume 11.2 fL (7.4-10.4); Monocytes # 0.9 10^3/uL (0.2-0.9); Monocytes % 6.9 %; Neutrophils # 9.07 10^3/uL (1.8-7.7); Neutrophils % 69.8 %; Nucleated Red Blood Cells % 0 %; Platelet Count 289 10^3/cmm (157-399); Red Blood Count 5.47 10^6/uL (3.85-5.65); Red Cell Distribution Width 13.3 % (12.1-15.1); White Blood Count 12.98 10^3/uL (3.29-11.43)
== END 2025-01-05 23:59 | disposition home or self-care (01) ==
PROVIDERS: PCP Family Medicine; Visit Provider Nurse Practitioner Family
DX: D75.1 Secondary polycythemia (principal)
CPT/HCPCS: 36415; 85025

== ENCOUNTER → 2024-12-14 15:28 | Outpatient (BNVA) | payer MEDICARE, MEDICAID, SELFPAY | PROVIDERS: PCP Family Medicine; Visit Provider Internal Medicine Cardiovascular Disease | DX: I10 Essential (primary) hypertension (principal); E78.5 Hyperlipidemia, unspecified; E11.9 Type 2 diabetes mellitus without complications; Z79.4 Long term (current) use of insulin; Z79.84 Long term (current) use of oral hypoglycemic drugs; F41.0 Panic disorder [episodic paroxysmal anxiety]; D75.1 Secondary polycythemia; Z72.0 Tobacco use; Z86.73 Personal history of transient ischemic attack (TIA), and cerebral infarction without residual deficits | CPT/HCPCS: 99214 ==

== ENCOUNTER → 2024-12-14 16:22 | Outpatient (BNVA) | payer MEDICARE, MEDICAID, SELFPAY | PROVIDERS: PCP Family Medicine; Visit Provider Internal Medicine Cardiovascular Disease | DX: R07.9 Chest pain, unspecified (principal); R94.31 Abnormal electrocardiogram [ECG] [EKG] | CPT/HCPCS: 93005 ==

== ENCOUNTER 2025-01-13 12:58 | Oncology outpatient (recurring) (ONCR) | payer MEDICARE, MEDICAID, SELFPAY ==
[2025-01-13 14:51] LABS: Basophils # 0.1 10^3/uL (0.0-0.1); Basophils % 0.7 %; Eosinophils # 0.2 10^3/uL (0.0-0.8); Eosinophils % 1.3 %; Hematocrit 52.1 % (36-47); Lymphocytes # 2.6 10^3/uL (0.8-4.8); Lymphocytes % 15.3 %; Mean Corpuscular HGB Conc 32.8 g/dL (30-55); Mean Corpuscular Hemoglobin 27.4 pg (27-33); Mean Corpuscular Volume 83.6 fl (85-98); Mean Platelet Volume 10.5 fL (7.4-10.4); Monocytes # 1.1 10^3/uL (0.2-0.9); Monocytes % 6.7 %; Neutrophils % 74.6 %; Nucleated Red Blood Cells % 0 %; Platelet Count 342 10^3/cmm (157-399); Red Blood Count 6.23 10^6/uL (3.85-5.65); Red Cell Distribution Width 13.7 % (12.1-15.1); White Blood Count 16.77 10^3/uL (3.29-11.43)
[2025-01-13 15:04] LABS: Alanine Aminotransferase 45 U/L (0-33); Albumin Level 4.1 g/dL (3.5-5.2); Alkaline Phosphatase 131 U/L (35-105); Anion Gap 18.2 (5-19); Aspartate Amino Transferase 26 U/L (0-32); Blood Urea Nitrogen 11 mg/dL (6-20); Calcium 9.1 mg/dL (8.5-10.5); Carbon Dioxide 21 mmol/L (22-29); Chloride 100 mmol/L (98-107); Globulin 3.8 g/dL (1.3-4.6); Glomerular Filtration Rate 112.5 mL/min (90-130); Glucose 164 mg/dL (65-115); Lactate Dehydrogenase 152 U/L (135-214); Osmolality Calculated 283 mOsm/kg (285-295); Potassium 4.2 mmol/L (3.5-5.1); Sodium 135 mmol/L (136-145); Total Bilirubin 0.5 mg/dL (0.15-1.2); Total Protein 7.9 g/dL (6.6-8.7)
[2025-01-13] MEDS: sodium chloride 0.9% 500 ML 999 ML IV (16:16)
[2025-01-13 16:55] VITALS: BP 145/87; PULSE 79; RESP 16; TEMP 36.7; O2SAT 98
[2025-01-17 13:19] LABS: P190 BCR ALB1 NOT DETECTED; P190 BCR ALB1 Yes Test Yes; P210 BCR ALB1 NOT DETECTED; P210 BCR ALB1 Yes Test Yes; Prior Results NG; Source whole blood
[2025-01-22 18:16] LABS: JAK2 V617 Clinical Indication elevated wbc; JAK2 V617 Mutation NOT DETECTED (NOT DETECTED); JAK2 V617 Specimen Source whole blood
== END 2025-02-05 23:59 | disposition home or self-care (01) ==
PROVIDERS: PCP Family Medicine; Visit Provider Nurse Practitioner Family
DX: D75.1 Secondary polycythemia (principal); D72.829 Elevated white blood cell count, unspecified
CPT/HCPCS: 80053; 81206; 81207; 81270; 83615; 85025; 96360; J7040

== ENCOUNTER 2025-01-18 17:44 | Emergency (ER) | payer MEDICARE, MEDICAID, SELFPAY ==
[2025-01-18 17:52] VITALS: BP 144/105; PULSE 100; RESP 16; TEMP 36.8; O2SAT 96; BMI 51.3
--- NOTE | 2025-01-18 18:05 | CTR_ITS ---
PROCEDURE INFORMATION: Exam: CT Abdomen And Pelvis With Contrast Exam date and time: 01/18/2025 7:17 PM Age: 39 years old Clinical indication: Abdominal pain; Localized; Prior surgery; Surgery date: 6+ months; Surgery type: Gb; Periumbilical/left sided abd pain with diarrhea x 3 days. TECHNIQUE: Imaging protocol: Computed tomography of the abdomen and pelvis with contrast. Radiation optimization: All CT scans at this facility use at least one of these dose optimization techniques: automated exposure control; mA and/or kV adjustment per patient size (includes targeted exams where dose is matched to clinical indication); or iterative reconstruction. Contrast material: OMNI 350; Contrast volume: 100 ml; Contrast route: INTRAVENOUS (IV); COMPARISON: CT abdomen pelvis w con* [id number] 02/29/2024 8:45 PM RADIATION DOSE METRICS: Total DLP (mGy-cm): 1233.23 FINDINGS: Liver: Hepatic steatosis and hepatomegaly. No significant focal hepatic lesions. Gallbladder and biliary ducts: Surgically absent gallbladder. No significant biliary ductal dilatation. Pancreas: Normal. No ductal dilation. Spleen: Normal. No splenomegaly. Adrenal glands: Normal. No mass. Kidneys and ureters: Normal. No hydronephrosis. Stomach and bowel: Unremarkable. No obstruction. No mucosal thickening. Appendix: No evidence of appendicitis. Intraperitoneal space: Unremarkable. No free air. No significant fluid collection. Vasculature: Unremarkable. No abdominal aortic aneurysm. Lymph nodes: Unremarkable. No enlarged lymph nodes. Urinary bladder: Unremarkable as visualized. Reproductive: Surgically absent uterus. No adnexal masses. Bones/joints: Unremarkable. No acute fracture. Soft tissues: Unremarkable. CT/CT abdomen pelvis w con* [id number] IMPRESSION: 1. No acute findings in the abdomen or pelvis. 2. Hepatic steatosis and hepatomegaly.
--- NOTE | 2025-01-18 18:07 | W.ED.NAVMDI ---
HPI - Nausea/Vomiting/Diarrhea General: Chief complaint: Nausea/Vomiting/Diarrhea Stated complaint: n/v/d, abd pain Time Seen by Provider: 01/18/25 18:02 Source: patient Mode of arrival: ambulatory Limitations: no limitations History of Present Illness: 39-year-old female states of the last 3 days been having some diarrhea nausea along with left-sided lower abdominal pain states pains been sharp in nature rates it a 6 out of 10 she denies any fevers denies any worse or improving factors. Associated nausea: Yes Associated symtoms: Reports nausea; Denies chest pain, dysuria or headache(s) Related Data Home Medications ?Medication ?Instructions ?Recorded ?Confirmed gabapentin 300 mg capsule 300 mg PO TID 12/14/24 01/03/25 Previous Rx's ?Medication ?Instructions ?Recorded lancets (Accu-Chek Fastclix Lancet #100 ea 04/18/20 Drum) ASO to the Left Ankle #1 ea 05/16/22 ciclopirox 0.77 % topical cream 1 applic topical BID 4 weeks #30 07/15/22 grams clobetasol 0.05 % topical ointment 1 applic topical BID 2 weeks #60 09/11/22 grams hinged knee brace #1 ea 12/26/22 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 meter (Accu-Chek #1 ea 01/02/23 Guide Glucose Meter) lancets (Accu-Chek Softclix #100 ea 01/02/23 Lancets) blood sugar diagnostic (Accu-Chek #200 strips 04/04/23 Guide test strips) insulin pump cart,automated,BT #5 ea 04/07/23 (Omnipod 5 G6 Pods (Gen 5) subcutaneous cartridge) 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,secondary 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,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 #1 ea 04/28/23 (Dexcom G7 Public Health Inspector) albuterol sulfate 90 mcg/actuation See Rx Instructions .Route 02/04/24 aerosol inhaler .COMPLEX #8.5 grams oxycodone 5 mg tablet 5 mg PO Q6H PRN pain postop 7 days 02/20/24 #28 tabs pen needle, diabetic 32 gauge x #300 ea 03/18/24 1/4 (BD Ultra-Fine Micro Pen Needle) Diabetic shoes with 3 sets of #1 ea 07/27/24 inserts montelukast 10 mg tablet See Rx Instructions .Route 09/27/24 .COMPLEX #90 tabs omeprazole 40 mg capsule,delayed 40 mg PO BID PRN acid reflux #180 10/26/24 release caps furosemide 40 mg tablet 40 mg PO DAILY #90 ea 11/09/24 potassium chloride 20 mEq See Rx Instructions .Route 11/09/24 tablet,extended release .COMPLEX #90 tabs budesonide-formoterol HFA 160 See Rx Instructions .Route 11/22/24 mcg-4.5 mcg/actuation aerosol .COMPLEX #10.2 grams inhaler (Symbicort) spironolactone 50 mg tablet 50 mg PO DAILY #90 tabs 11/22/24 insulin aspart U-100 100 unit/mL See Rx Instructions .Route 12/02/24 (3 mL) subcutaneous pen (Novolog .COMPLEX #27 mL FlexPen U-100 Insulin aspart) insulin glargine 100 unit/mL (3 See Rx Instructions .Route 12/02/24 mL) subcutaneous pen (Lantus .COMPLEX #45 mL Solostar U-100 Insulin) empagliflozin 25 mg tablet See Rx Instructions .Route 12/09/24 (Jardiance) .COMPLEX #45 tabs isosorbide mononitrate 30 mg 15 mg (1/2 x 30 mg) PO BID #90 tabs 12/14/24 tablet,extended release 24 hr metoprolol succinate 25 mg 25 mg PO DAILY #90 tabs 12/14/24 tablet,extended release 24 hr tirzepatide 5 mg/0.5 mL See Rx Instructions .Route 12/20/24 subcutaneous pen injector .COMPLEX #2 mL (Mounjaro) venlafaxine 150 mg See Rx Instructions .Route 12/22/24 capsule,extended release 24 hr .COMPLEX #30 caps sumatriptan succinate 25 mg tablet See Rx Instructions .Route 12/24/24 (Imitrex) .COMPLEX PRN Migraine Headache #30 tabs 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 sensor (Dexcom G7 #9 ea 01/18/25 Sensor device) Allergies Allergy/AdvReac Type Severity Reaction Status Date / Time atorvastatin Allergy Severe transaminit Verified 01/03/25 07:48 is ibuprofen Allergy Mild ALGY-Swell Verified 01/03/25 07:48 Lip/Tongue/Throat acetaminophen (From Tylenol) Allergy liver Verified 01/03/25 07:48 reaction diclofenac Allergy ADR-Vomitin Verified 01/03/25 07:48 g ketorolac (From Toradol) Allergy sick Verified 01/03/25 07:48 Review of Systems Const: Denies: fever(s), chills, body aches or change in appetite ENMT: Denies: throat pain or dental pain Card: Denies: chest pain Resp: Denies: dyspnea GI: Reports: abdominal pain, nausea and diarrhea; Denies: vomiting : Denies: dysuria Musc: Denies: neck pain or back pain Skin/Breast: Denies: rash Neuro: Denies: headache(s) PFSH ED PFSH: Medical History Hyperlipidemia associated with type 2 diabetes mellitus HTN (hypertension) with goal to be determined Psychiatric care Chronic anemia Migraine JESSE (iron deficiency anemia) Tobacco use disorder DHEERAJ (obstructive sleep apnea) Atypical chest pain Type 2 diabetes mellitus, with long-term current use of insulin Dyslipidemia 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 Pain management contract signed Amenorrhea Asthma Spinal stenosis, thoracic region Morbid obesity with BMI of 60.0-69.9, adult Muscle spasms of both lower extremities Bilateral leg edema Bilateral chronic knee pain GERD (gastroesophageal reflux disease) Surgical History History of cholecystectomy Family History Father CAD (coronary artery disease) Diabetes Hypertension Seizures Bleeding disorder Hyperlipidemia Lung disease Psychiatric illness Stroke Family/Other Cancer Clotting disorder Hyperlipidemia Lung disease Psychiatric illness Stroke Mother Diabetes Hypertension Hyperlipidemia Lung disease Other Chronic kidney disease (CKD) Denies family history of Dementia Anesthesia complication Social History Smoking and tobacco/nicotine status: current every day tobacco/nicotine user cigarettes Packs smoked per day: 2 Years cigarettes smoked: 20 [ Other cigarette details: 2PPD, 30PY onset at 15yo] Second hand smoke exposure: Yes Alcohol intake: former Year of sobriety/quit date alcohol: 2016 Substance/Drug Use: former Date of last use: MJ quit in 2021 with new pain management Caregiver/support person: Yes Household members: spouse and family Marital status: Current occupational status: disabled Current occupation: disabled Sexually active: Yes Do you think of yourself as: Straight/Heterosexual Current gender identity: Female Special lacey needs: No Agree to transfusion: Yes Female Reproductive History: Para: 1 Physical Exam Const: COMMON NORMALS: no acute distress, patient oriented x3 and healthy appearing HENMT: COMMON NORMALS: normocephalic and atraumatic HEAD & SCALP: normocephalic and atraumatic Neck/C-Spine: COMMON NORMALS: full ROM and supple Chest: COMMONS NORMALS: normal inspection of the chest Resp: COMMON NORMALS: normal respiratory effort Cardio: COMMON NORMALS: regular rate, regular rhythm and No murmurs present (Cardio) RATE: regular rate RHYTHM: regular rhythm GI: COMMON NORMALS: Normal to inspection, nondistended, normoactive bowel sounds present, Soft to palpation, non-tender and no masses PALPATION: Yes Soft to palpation Extremity: COMMON NORMALS: normal to inspection and full ROM Neuro: COMMON NORMALS: patient oriented x3, moves all extremities and no focal motor deficits Psych: COMMON NORMALS: mental status grossly normal, Normal thought process present and cooperative THOUGHT PROCESS: Normal thought process present Skin: COMMON NORMALS: no rashes or lesions noted and no wounds GENERAL SKIN EXAM: no rashes or lesions noted Course Vital Signs: Vital signs: Vital Signs Temperature 98.2 F 01/18/25 17:52 Pulse Rate 100 01/18/25 17:52 Respiratory Rate 16 01/18/25 17:52 Blood Pressure 144/105 01/18/25 17:52 Pulse Oximetry 96 01/18/25 17:52 Oxygen Delivery Me thod Room Air 01/18/25 17:52 MDM - Nausea/Vomiting/Diarrhea Medical Decision Making Patient presents with abdominal pain imaging shows no acute abnormality she feels improved she stable for discharge follow-up with PCP return if worsening Medical Records I reviewed the patient's medical records. Lab Data I reviewed the patient's lab results. 01/18/25 18:02 01/18/25 18:02 Radiology Impressions Abdomen/Pelvis CT 01/18/25 18:05 IMPRESSION: 1. No acute findings in the abdomen or pelvis. 2. Hepatic steatosis and hepatomegaly. Laboratory Results WBC 18.80 10^3/uL (3.29-11.43) H 01/18/25 18:02 RBC 6.10 10^6/uL (3.85-5.65) H 01/18/25 18:02 Hgb 16.80 g/dL (11.27-16.99) 01/18/25 18:02 Hct 50.8 % (36-47) H 01/18/25 18:02 MCV 83.3 fl (85-98) L 01/18/25 18:02 MCH 27.5 pg (27-33) 01/18/25 18: MCHC 33.1 g/dL (30-55) 01/18/25 18:02 RDW 13.3 % (12.1-15.1) 01/18/25 18:02 Plt Count 391 10^3/cmm (157-399) 01/18/25 18:02 MPV 10.7 fL (7.4-10.4) H 01/18/25 18:02 Neut % (Auto) 76.0 % 01/18/25 18:02 Lymph % (Auto) 15.2 % 01/18/25 18: Moore % (Auto) 6.4 % 01/18/25 18:02 Eos % (Auto) 1.0 % 01/18/25 18:02 Baso % (Auto) 0.4 % 01/18/25 18:02 Neut # (Auto) 14.30 10^3/uL (1.8-7.7) H 01/18/25 18:02 Lymph # (Auto) 2.9 10^3/uL (0.8-4.8) 01/18/25 18:02 Moore # (Auto) 1.2 10^3/uL (0.2-0.9) H 01/18/25 18:02 Eos # (Auto) 0.2 10^3/uL (0.0-0.8) 01/18/25 18:02 Baso # (Auto) 0.1 10^3/uL (0.0-0.1) 01/18/25 18:02 Nucleated RBC % (auto) 0 % 01/18/25 18: Nucleated RBCs # 0.0 /100WBC 01/18/25 18:02 Sodium 134 mmol/L (136-145) L 01/18/25 18:02 Potassium 3.9 mmol/L (3.5-5.1) 01/18/25 18:02 Chloride 100 mmol/L (98-107) 01/18/25 18:02 Carbon Dioxide 18 mmol/L (22-29) L 01/18/25 18:02 Anion Gap 19.9 (5-19) H 01/18/25 18:02 BUN 11 mg/dL (6-20) 01/18/25 18:02 Creatinine 0.6 mg/dL (0.5-0.9) 01/18/25 18:02 GFR Calculation 112.5 mL/min (90-130) 01/18/25 18: Glucose 169 mg/dL (65-115) H 01/18/25 18:02 Calculated Osmolality 281 mOsm/kg (285-295) L 01/18/25 18:02 Calcium 9.1 mg/dL (8.5-10.5) 01/18/25 18: Total Bilirubin 0.6 mg/dL (0.15-1.2) 01/18/25 18:02 AST 15 U/L (0-32) 01/18/25 18: ALT 26 U/L (0-33) 01/18/25 18:02 Alkaline Phosphatase 109 U/L (35-105) H 01/18/25 18:02 Total Protein 8.0 g/dL (6.6-8.7) 01/18/25 18: Albumin 4.2 g/dL (3.5-5.2) 01/18/25 18: Globulin 3.8 g/dL (1.3-4.6) 01/18/25 18: Lipase 29 U/L (13-60) 01/18/25 18: HCG, Qual Negative (Negative) 01/18/25 18: Urine Color Yellow (Yellow) 01/18/25 18:55 Urine Appearance Clear (CLEAR) 01/18/25 18:55 Urine pH 5.0 (5-7) 01/18/25 18:55 Ur Specific [place] 1.035 (1.005-1.030) H 01/18/25 18:55 Urine Protein Trace (Negative) A 01/18/25 18:55 Urine Glucose (UA) 3+ (Normal) H 01/18/25 18:55 Urine Ketones Trace (Negative) 01/18/25 18:55 Urine Blood Negative (Negative) 01/18/25 18:55 Urine Nitrate Negative (Negative) 01/18/25 18:55 Urine Bilirubin Negative (Negative) 01/18/25 18:55 Urine Urobilinogen 0.2 mg/dL (Negative) 01/18/25 18:55 Ur Leukocyte Esterase Negative (Negative) 01/18/25 18:55 Urine RBC 6-10 /hpf (0-2) 01/18/25 18:55 Urine WBC 0-5 /hpf (0-5) 01/18/25 18:55 Ur Squamous Epith Cells 0-5 /hpf (0-5) 01/18/25 18:55 Amorphous Sediment Not Reportable 01/18/25 18:55 Urine Bacteria None seen /hpf (NONE) 01/18/25 18:55 Hyaline Casts 0-4 /lpf H 01/18/25 18:55 Urine Yeast 1+ /hpf H 01/18/25 18:55 All radiology interpretation(s) finalized by discharge Discharge Plan Discharge Patient Disposition: Home Clinical Impression: Abdominal pain Condition: Stable Prescriptions: No Action (DME) Omnipod 5 G6 Pods (Gen 5) Cartridge See Rx Instructions .Route Qty: 5 2RF Rx Instructions: As directed (DME) ASO to the Left Ankle See Rx Instructions .Route .MEDSUPPLY Qty: 1 0RF Rx Instructions: As directed ciclopirox 0.77 % cream 1 applic topical BID 28 Days Qty: 30 0RF Rx Instructions: Apply to hands twice daily for 4 weeks (DME) Diabetic shoes with 3 sets of inserts See Rx Instructions .Route .MEDSUPPLY Qty: 1 0RF Rx Instructions: As directed HOME insulin glargine [Lantus Solostar U-100 Insulin] 100 unit/mL (3 mL) insulin pen See Rx Instructions .ROUTE .COMPLEX Qty: 45 3RF Dose Instruction: inject 50 units (0.5ml) SUBCUTANEOUSLY EVERY DAY Rx Instructions: inject 50 units (0.5ml) SUBCUTANEOUSLY EVERY DAY insulin aspart U-100 [Novolog FlexPen U-100 Insulin] 100 unit/mL (3 mL) insulin pen See Rx Instructions .ROUTE .COMPLEX Qty: 27 3RF Dose Instruction: inject 10 units SUBCUTANEOUSLY THREE TIMES DAILY Rx Instructions: start at 5 units a day then go to 10 units SUBCUTANEOUSLY THREE TIMES DAILY gabapentin 300 mg capsule 300 mg PO TID metoprolol succinate 25 mg tablet extended release 24 hr 25 mg PO DAILY Qty: 90 3RF isosorbide mononitrate 30 mg tablet extended release 24 hr 15 mg PO BID Qty: 90 3RF furosemide 40 mg tablet 40 mg PO DAILY Qty: 90 0RF potassium chloride 20 mEq tablet extended release See Rx Instructions .ROUTE .COMPLEX Qty: 90 1RF Dose Instruction: TAKE 1 TABLET BY MOUTH EVERY DAY Rx Instructions: TAKE 1 TABLET BY MOUTH EVERY DAY (DME) lancets [Accu-Chek Fastclix Lancet Drum] Misc See Rx Instructions .ROUTE .MEDSUPPLY Qty: 100 1RF Rx Instructions: TWICE DAILY clobetasol 0.05 % ointment 1 applic topical BID 14 Days Qty: 60 1RF Rx Instructions: Apply to palm & trunk. Use for no more than 2 weeks per month. Not for use on face/skin folds. (DME) hinged knee brace See Rx Instructions .Route .MEDSUPPLY Qty: 1 0RF Rx Instructions: As directed (DME) 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 meter [Accu-Chek Guide Glucose Meter] Misc See Rx Instructions .Route Qty: 1 0RF Rx Instructions: As directed (DME) lancets [Accu-Chek Softclix Lancets] Misc See Rx Instructions .Route Qty: 100 0RF Rx Instructions: As directed (DME) Accu-Chek Guide test strips Strip See Rx Instructions .ROUTE .COMPLEX Qty: 200 0RF Dose Instruction: check UP TO TWICE DAILY Rx Instructions: check UP TO TWICE DAILY (DME) Dexcom G7 Public Health Inspector Misc See Rx Instructions .Route Qty: 1 0RF Rx Instructions: As directed albuterol sulfate 90 mcg/actuation HFA aerosol inhaler See Rx Instructions .ROUTE .COMPLEX Qty: 8.5 5RF Dose Instruction: inhale TWO puffs BY MOUTH EVERY 6 HOURS as needed for SHORTNESS OF BREATH or wheezing Rx Instructions: inhale TWO puffs BY MOUTH EVERY 6 HOURS as needed for SHORTNESS OF BREATH or wheezing oxycodone 5 mg tablet 5 mg PO Q6H PRN (Reason: pain postop) 7 Days Qty: 28 0RF (DME) pen needle, diabetic [BD Ultra-Fine Micro Pen Needle] 32 gauge x 1/4 needle See Rx Instructions .ROUTE .COMPLEX Qty: 300 0RF Dose Instruction: USE THREE TIMES DAILY Rx Instructions: USE THREE TIMES DAILY montelukast 10 mg tablet See Rx Instructions .ROUTE .COMPLEX Qty: 90 1RF Dose Instruction: TAKE 1 TABLET BY MOUTH EVERY DAY Rx Instructions: TAKE 1 TABLET BY MOUTH EVERY DAY omeprazole 40 mg capsule,delayed release(DR/EC) 40 mg PO BID PRN (Reason: acid reflux) Qty: 180 0RF spironolactone 50 mg tablet 50 mg PO DAILY Qty: 90 3RF budesonide-formoterol [Symbicort] 160-4.5 mcg/actuation HFA aerosol inhaler See Rx Instructions .ROUTE .COMPLEX Qty: 10.2 2RF Dose Instruction: inhale TWO puffs BY MOUTH TWICE DAILY FOR copd Rx Instructions: inhale TWO puffs BY MOUTH TWICE DAILY FOR copd Jardiance 25 mg tablet See Rx Instructions .ROUTE .COMPLEX Qty: 45 0RF Dose Instruction: TAKE 1 TABLET BY MOUTH DAILY FOR SIX weeks Rx Instructions: TAKE 1 TABLET BY MOUTH DAILY FOR SIX weeks Mounjaro 5 mg/0.5 mL pen injector See Rx Instructions .ROUTE .COMPLEX Qty: 2 3RF Dose Instruction: inject 5mg (0.5ml) SUBCUTANEOUSLY EVERY 7 DAYS Rx Instructions: inject 5mg (0.5ml) SUBCUTANEOUSLY EVERY 7 DAYS venlafaxine 150 mg capsule,extended release 24hr See Rx Instructions .ROUTE .COMPLEX Qty: 30 2RF Dose Instruction: TAKE ONE CAPSULE BY MOUTH EVERY DAY Rx Instructions: TAKE ONE CAPSULE BY MOUTH EVERY DAY Imitrex 25 mg tablet See Rx Instructions .ROUTE .COMPLEX PRN (Reason: Migraine Headache) Qty: 30 1RF Rx Instructions: TAKE 1 TABLET BY MOUTH EVERY 2 HOURS NEEDED FOR MIGRAINE HEADACHE. MAX OF FOUR TABLETS PER 24 HOURS (DME) Dexcom G7 Sensor Device See Rx Instructions .Route Qty: 9 0RF Rx Instructions: As directed Discharge Orders: Discharge ED (Routine); Ordered 01/18/25 Ordered By: Kat Yang Referrals: Martínez Lovelace MD [Primary Care Provider, Family Practice] - 4-7 days Discharge Diet: Advance as tolerated Discharge Activity: Resume usual activity Patient Instructions: Abdominal Pain (ED) Print Language: Kazakh Coding Level of Care Code ED Artificial Breeding Technician for Leonela Escobedo
[2025-01-18 18:11] LABS: Basophils # 0.1 10^3/uL (0.0-0.1); Basophils % 0.4 %; Eosinophils # 0.2 10^3/uL (0.0-0.8); Hematocrit 50.8 % (36-47); Lymphocytes # 2.9 10^3/uL (0.8-4.8); Lymphocytes % 15.2 %; Mean Corpuscular HGB Conc 33.1 g/dL (30-55); Mean Corpuscular Hemoglobin 27.5 pg (27-33); Mean Corpuscular Volume 83.3 fl (85-98); Mean Platelet Volume 10.7 fL (7.4-10.4); Monocytes # 1.2 10^3/uL (0.2-0.9); Monocytes % 6.4 %; Nucleated Red Blood Cells % 0 %; Platelet Count 391 10^3/cmm (157-399); Red Cell Distribution Width 13.3 % (12.1-15.1)
[2025-01-18] MEDS: morphine 4 mg/mL SDV 1 mL IVP (18:20)
[2025-01-18] MEDS: ondansetron 2 mg/ML SDV 2 mL 4 MG IVP (18:20)
[2025-01-18 18:30] LABS: HCG, Serum Qual Negative (Negative)
[2025-01-18 18:32] LABS: Alanine Aminotransferase 26 U/L (0-33); Albumin Level 4.2 g/dL (3.5-5.2); Alkaline Phosphatase 109 U/L (35-105); Anion Gap 19.9 (5-19); Aspartate Amino Transferase 15 U/L (0-32); Blood Urea Nitrogen 11 mg/dL (6-20); Calcium 9.1 mg/dL (8.5-10.5); Carbon Dioxide 18 mmol/L (22-29); Chloride 100 mmol/L (98-107); Creatinine Clr Calc Pharmacy 170.3512; Globulin 3.8 g/dL (1.3-4.6); Glomerular Filtration Rate 112.5 mL/min (90-130); Glucose 169 mg/dL (65-115); Lipase 29 U/L (13-60); Osmolality Calculated 281 mOsm/kg (285-295); Potassium 3.9 mmol/L (3.5-5.1); Sodium 134 mmol/L (136-145); Total Bilirubin 0.6 mg/dL (0.15-1.2)
[2025-01-18 19:07] LABS: Bilirubin Urine Negative (Negative); Blood Urine Negative (Negative); Glucose Urine UA 3+ (Normal); Ketones Urine Trace (Negative); Leukocyte Esterase Urine Negative (Negative); Nitrate Urine Negative (Negative); Protein Urine Trace (Negative); Urine Appearance Clear (CLEAR); Urine Color Yellow (Yellow); Urobilinogen Urine 0.2 mg/dL (Negative)
[2025-01-18 19:12] LABS: Add Urine Microscopic? YES; Bacteria Urine None Seen /hpf; Hyaline Casts Urine 0-4 /lpf; Squamous Epithelial Cell Urine 0-5 /hpf (0-5); WBC Urine 0-5 /hpf (0-5)
[2025-01-18] MEDS: iohexol 350 mg/mL 500 mL Btl (per mL) IV (19:17)
[2025-01-18 19:36] LABS: Specific Gravity, Urine 1.035 (1.005-1.030); UA Slide Review UA Slide Review Perf
[2025-01-18 19:38] LABS: Add Urine Culture? No
[2025-01-18] MEDS: HYDROmorphone 0.5 MG/0.5 ML INJ IVP (20:06)
[2025-01-18 20:18] VITALS: BP 133/103; PULSE 99; O2SAT 91
== END 2025-01-18 20:20 | disposition home or self-care (01) ==
PROVIDERS: Emergency Provider Emergency Medicine; PCP Family Medicine
DX: R10.9 Unspecified abdominal pain (principal); Z79.4 Long term (current) use of insulin; F17.210 Nicotine dependence, cigarettes, uncomplicated; E78.5 Hyperlipidemia, unspecified; E11.9 Type 2 diabetes mellitus without complications
CPT/HCPCS: 36415; 74177; 80053; 81001; 83690; 84703; 85025; 96374; 96375; 99285; J1171; J2270; J2405

== ENCOUNTER 2025-02-09 10:52 | Oncology outpatient (recurring) (ONCR) | payer MEDICARE, MEDICAID, SELFPAY ==
[2025-02-09 11:34] LABS: Basophils # 0.1 10^3/uL (0.0-0.1); Basophils % 0.4 %; Eosinophils # 0.3 10^3/uL (0.0-0.8); Eosinophils % 1.5 %; Hematocrit 47.7 % (36-47); Lymphocytes # 2.2 10^3/uL (0.8-4.8); Mean Corpuscular HGB Conc 32.3 g/dL (30-55); Mean Corpuscular Hemoglobin 27.2 pg (27-33); Mean Corpuscular Volume 84.3 fl (85-98); Mean Platelet Volume 10.6 fL (7.4-10.4); Neutrophils # 13.06 10^3/uL (1.8-7.7); Neutrophils % 77.8 %; Nucleated Red Blood Cells % 0 %; Platelet Count 396 10^3/cmm (157-399); Red Blood Count 5.66 10^6/uL (3.85-5.65); Red Cell Distribution Width 13.9 % (12.1-15.1)
[2025-02-09 11:48] LABS: Estmated Average Glucose 183
[2025-02-09 11:53] LABS: Alanine Aminotransferase 18 U/L (0-33); Albumin Level 3.9 g/dL (3.5-5.2); Alkaline Phosphatase 121 U/L (35-105); Anion Gap 18.2 (5-19); Aspartate Amino Transferase 13 U/L (0-32); Blood Urea Nitrogen 13 mg/dL (6-20); Calcium 8.9 mg/dL (8.5-10.5); Carbon Dioxide 21 mmol/L (22-29); Chloride 99 mmol/L (98-107); Chol HDL Ratio 4.98 mg/dL (0.0-4.40); Cholesterol 209 mg/dL (0-200); Globulin 3.7 g/dL (1.3-4.6); Glomerular Filtration Rate 112.5 mL/min (90-130); Glucose 242 mg/dL (65-115); HDL Cholesterol 42 mg/dL (60-100); LDL Cholesterol Calculated 128 mg/dL (50-129); LDL HDL Ratio 3.05 RATIO (0.00-3.22); Osmolality Calculated 286 mOsm/kg (285-295); Potassium 4.2 mmol/L (3.5-5.1); Sodium 134 mmol/L (136-145); Total Bilirubin 0.6 mg/dL (0.15-1.2); Total Protein 7.6 g/dL (6.6-8.7); Triglycerides 197 mg/dL (0-150)
[2025-02-09 11:54] LABS: Creatinine Urine, Random 16 mg/dL (28-217); Microalbumin Random Urine 1 ug/dL (0-20)
[2025-02-09 12:05] LABS: Microalbum Creatinine Ratio Ur 63 mg/dL (0-20)
== END 2025-03-07 23:59 | disposition home or self-care (01) ==
PROVIDERS: Internal Medicine; PCP Family Medicine; Visit Provider Nurse Practitioner Family
DX: D75.1 Secondary polycythemia (principal); D72.829 Elevated white blood cell count, unspecified; Z71.6 Tobacco abuse counseling; R30.0 Dysuria; F17.210 Nicotine dependence, cigarettes, uncomplicated; E11.9 Type 2 diabetes mellitus without complications; Z79.4 Long term (current) use of insulin; K76.0 Fatty (change of) liver, not elsewhere classified; E11.49 Type 2 diabetes mellitus with other diabetic neurological complication; E78.2 Mixed hyperlipidemia; R74.01 Elevation of levels of liver transaminase levels; R10.9 Unspecified abdominal pain
CPT/HCPCS: 80053; 80061; 82044; 83036; 85025; 99214

== ENCOUNTER → 2025-03-03 07:36 | Outpatient (BNVA) | payer MEDICARE, MEDICAID, SELFPAY | PROVIDERS: PCP Family Medicine; Visit Provider Internal Medicine | DX: E11.49 Type 2 diabetes mellitus with other diabetic neurological complication (principal); Z79.4 Long term (current) use of insulin; E78.2 Mixed hyperlipidemia; R74.01 Elevation of levels of liver transaminase levels; M54.2 Cervicalgia; R68.89 Other general symptoms and signs | CPT/HCPCS: 72050; 99213; 99214 ==

== ENCOUNTER → 2025-03-21 10:19 | Outpatient (BNVA) | payer MEDICARE, MEDICAID, SELFPAY | PROVIDERS: PCP Family Medicine; Visit Provider Nurse Practitioner Family | DX: R07.9 Chest pain, unspecified (principal); I10 Essential (primary) hypertension; E11.69 Type 2 diabetes mellitus with other specified complication; Z79.4 Long term (current) use of insulin; E78.5 Hyperlipidemia, unspecified; F17.210 Nicotine dependence, cigarettes, uncomplicated | CPT/HCPCS: 99213 ==

== ENCOUNTER 2025-03-29 18:31 | Emergency (ER) | payer MEDICARE, MEDICAID, SELFPAY ==
--- OUTSIDE RECORDS SUMMARY | 2003-09-07 19:00 | XMS_ITS | Continuity of Care Document ---
Author Name [facility] Address [address] [place] [address] Organization [facility] Care Team Providers Care Egg Crater Name Role Phone [facility] Unavailable Problems Problem Status Onset Date Problem Type Date of Resolution Comme nts Source Tobacco user (finding) Active Condition Type II diabetes mellitus uncontrolled (finding) Active Condition Pain in right leg (finding) Active Condition Encounters Location Location Details Encounter Type Encounter Number Reason For Visit Attending Provider ADM Date DC Date Status Source [facility] Outpatient [id number] 3 month follow- up Aleksander Fay [facility]
--- OUTSIDE RECORDS SUMMARY | 2019-02-03 03:27 | XMS_ITS | Continuity of Care Document ---
Author Organization [facility] Address [address] [id number], [place] [address] Phone Care Team Providers Care Nurses' Registry Director Name Role Phone Annie Paris Unavailable Unavailable Allergies, Adverse Reactions, Alerts Substance Reaction Status Criticality No Known Allergies Active No Inform ation Medications Medication Instructions Dosage Effective Dates (start - stop) Status Comments PROAIR 90MCG INHALER 108 (90 BAS AERO INHALE TWO (2) PUFFS BY MOUTH EVERY 4-6 HOURS NEEDED - Active METFORMIN HCL 500 MG TABLET 500 TAB TAKE 1 TABLET BY MOUTH TWICE DAILY WITH MORNING AND EVENING MEALS 500 MG - Active FAMOTIDINE 40MG TAB TAKE 1 TABLET BY MOUTH TWICE DAILY - Active spironolactone 25 mg tablet TAKE 1 TABLET BY MOUTH TWICE DAILY - Active will need follow up for any more refills [facility] 15MG TAB TAKE 1 TABLET BY MOUTH ONCE DAILY - Active ATENOLOL 25MG TAB TAKE ONE TABLET BY MOUTH TWICE DAILY - Active lisinopril 20 mg-hydrochlorothiazi de 25 mg tablet take 1 tablet by oral route every day 1.00 tablet - Active citalopram 20 mg tablet take 1 tablet by oral route every day 20 MG - Active risperidone 0.5 mg tablet take 1 tablet by oral route 2 times every day 0.5 MG - Active naltrexone 50 mg tablet take 1 tablet by oral route every day 50 MG - Active cyclobenzaprine 10 mg tablet take 1 tablet by oral route 2 times every day prn spasms - Active PROAIR 90MCG INHALER 108 (90 BAS AERO INHALE 2 PUFFS BY MOUTH EVERY 4 TO 6 HOURS NEEDED - No Longer Active Procedures Procedure Date OFFICE/OUTPATIENT VISIT, EST OFFICE/OUTPATIENT VISIT, EST OFFICE/OUTPATIENT VISIT, NEW COMPLETE CBC W/AUTO DIFF WBC COMPREHEN METABOLIC PANEL GLYCOSYLATED HEMOGLOBIN TEST ROUTINE VENIPUNCTURE Intraoral Periapical First Film Intraoral Periapical Each Additional Film Limited Oral Evaluation Problem Focused Extraction, Erupted Tooth Or Exposed Zina t (Elevati Extraction, Erupted Tooth Or Exposed Zina t (Elevati EDR Approval Note Advance Directives Directive Yes / No Effective Date File Name No Information Encounters Encounter Description Practice Location Reason(s) For Visit Diagnoses Date Provider Providers Copied on Encounter [facility], [id number]- [place], [place], [id number], [place] tel:[phone] [facility] No Information 9 Saima Annie. [address] [place] [address], [id number], [place]. tel:[phone] [facility], [id number]- [place], [place], [address], [place] tel:[phone] [facility] No Information 0 9 Saima Annie. [address] [place], [place], [id number], [place]. tel:[phone] [facility], [id number] [place], [address], [place] tel:[phone] [facility] No Information 9 Saima Annie. [address] [place] [address], [id number], [place]. tel:[phone] [facility], [id number] 4274783XP- [facility], [place], [place], [address], [place] tel:[phone] [facility] No Information 9 Saima Annie. [address] [place], [place], [address], [place]. tel:[phone] [facility], [id number] 7620761EJ- [facility], [place], [place], [address], [place] tel:[phone] [facility] No Information 9 No Information [facility], [id number]- [facility], [place], [place], [address], [place] tel:[phone] [facility] No Information 8 Saima Annie. [address] [place] [address], [id number], [place]. tel:[phone] [facility], [id number] 0699960[place]MD[place], [address], [place] tel:[phone] [facility] No Information 8 Saima Annie. [address] [place] [address], [id number], [place]. tel:[phone] [facility], [id number] 8[place], [address], [place] tel:[phone] [facility] No Information 8 Saima Annie. [address] [place], [place], [address], [place]. tel:[phone] [facility], [address] 1831092PYD[place], [address], [place] tel:[phone] [facility] No Information 0 8 Keith Nguyen. [address] [place], [address], [place]. tel:[phone] OFFICE/OUTPA TIENT VISIT, [facility], [id number] 5727042BMD[place], [place], [address], [place] tel:[phone] [facility] Addiction (chief complaint) Tobacco use 8 Keith Nguyen. [address] [place], [address], [place]. tel:[phone] Referring Provider: Patrick Keith, [address] [place], [address]. tel:[phone] OFFICE/OUTPA TIENT VISIT, [facility], [id number] 4637845DVD[place], [place], [address], [place] tel:[phone] [facility] Diabetes (follow up) (chief complaint)f all (chief complaint) Pain in unspecified kneeType 2 diabetes mellitus without complications 8 Saima Valencia. [address] [place] [address], [id number], [place]. tel:[phone] Referring Provider: Annie Landaverde, [address] [place] [address], [address] . tel:[phone] OFFICE/OUTPA TIENT VISIT, [facility], [id number] [place]30[place], [address], [place] tel:[phone] [facility] anxiety (chief complaint)d epression (chief complaint)h ypertension (chief complaint)c hronic bronchitis (chief complaint)d iabetes (chief complaint) Essential (primary) hypertensionTy pe 2 diabetes mellitus without complicationsD epressionAnxie tyChronic bronchitis 7 Saima Valencia. [address] [place] [address], [id number], [place]. tel:[phone] Referring Provider: Annie Landaverde, [address] [place] [address], [address] . tel:[phone] [facility], [id number] 9349965SFDallas, [place], [address], [place] tel:[phone] [facility] F1 Type 2 diabetes mellitus without complicationsE ssential (primary) hypertension Saima Valencia. [address] [place] [address], [id number], [place]. tel:[phone] Referring Provider: Annie Landaverde, [address] [place] [address], [address] . tel:[phone] [facility], [id number] 7053073WMD[place], [place], [address], [place] tel:[phone] [facility] Type 2 diabetes mellitus without complicationsE ssential (primary) hypertension Saima Valencia. [address] [place] [address], [id number], [place]. tel:[phone] Referring Provider: Annie Landaverde, [address] [place] [address], [address] . tel:[phone] [facility], [id number] 9155228ONDallas, [place], [address], [place] tel:[phone] [facility] Encounter for dental exam and cleaning w/o abnormal findings No Information As per patient privacy policy some of the clinical information may not be visible. Family History Family Member Type Diagnosis Age At Onset Problem (finding) Family history of malignant neoplasm of lung Problem (finding) Family history of malignant neoplasm of thyroid Problem (finding) Family history of Cance r, brain Problem (finding) Developmental delay Problem (finding) Family history of hyper cholesterolemia Problem (finding) Family history of Obesi ty Problem (finding) Family history of asthm a Problem (finding) Family history of attention deficit hyperactivity disorder Problem (finding) Family history of learn ing disability Problem (finding) Family history of diabetes mellitus type 2 Problem (finding) Family history of hyper tension Problem (finding) Family history of strok e Problem (finding) Family history of coronary arteriosclerosis Problem (finding) Family history of breas t cancer Mother Problem (finding) Payers Payer name Insurance type Covered constitution party ID Wenceslao Zepeda (s) [place] Medicaid MC [id number] Social History Type Description Quantity Date Captured Comments Sex Female Smoking Status No Information Sexual Orientation Heterosexual Gender Identity Female Chief Complaint And Reason For Visit No Information Reason For Referral Reason For Referral No Information Plan Of Treatment Date Type Action Status Goal Creatinine. Due on due Goal Potassium. Due on due Goal Creatinine. Due on due Goal Potassium. Due on 8 due Goal Dietary management education , guidance, and counseling completed Goal Tobacco cessation counseling completed Goal Potassium. Due on 8 due Goal Creatinine. Due on 18 due Goal Tobacco cessation counseling completed Goal Tobacco cessation counseling completed Goal Tobacco cessation counseling completed History Of Present Illness Encounter Date Complaint History Of Prese nt Illness Addiction The symptoms are reported as being moderate. The symptoms occur daily. She states the symptoms are chronic. Addiction- she started using pain rx for the last fours ago. She stated that initially she was in pain for back pain- she was given pain pills for her back. She stated that at that time she was taking around 10mg hydrocodone #20. She stated that she has last used opioids 1.5 weeks ago with Thornton 5mg.Drug use:Opioids: Thornton last dose was two weeks agoTHC: currentMeth- neverCocaine- NeverHeroin- NeverAlcohol- Once week (wasted)LSD- neverShe stated that she would usually snort her Thornton. She stated that she is smoking anything she can. such as potpourriShe stated that she currently does not have custody of her children and wants to get clean and stay clean to get her kids back. fall The symptoms beg an 10 days ago. The symptoms are reported as being moderate. The symptoms occur daily. Aggravating factors include walking, standing.. Relieving factors include tramadol. She states the symptoms are acute and have worsened. Pt went to the ER 10 days ago when she fell, she lost her balance and fell forward onto her knees. SHe was already having knee pain and this worsened her pain. They did xray both knees and prescribed her flexeril and tramadol. She sees Dr. Dodson through [facility] who is Ortho. They are trying to get gel injections in her knees. Diabetes (follow up) Additional information: Pt states she has gained 40 pounds in the last 4 months, not sure why other than she was started on risperdal. BS has been bouncing around lately.. hypertension The symptoms beg an 1 year ago. It is currently stable. Risk factors include inactive lifestyle and obesity. Pertinent negatives include chest pain, claudication, confusion, diaphoresis, dyspnea, epistaxis, fatigue, headache, hematuria, irregular heartbeat/palpitations, nausea and tinnitus. Additional information: bp meds mostly keep it controlled. Was seeing Kyara at Internal Meds at [facility] but then she left. notes dizziness sometimes when stands too fast depression The symptoms are reported as being moderate. Relieving factors include celexa. She states the symptoms are chronic and are stable. Pt sees Dr. Jaquez at [facility] who is managing her depression and anxiety anxiety This is an initi al visit. There is improvement of initial symptoms. The patient reports functioning as somewhat difficult. The patient presents with anxious/fearful thoughts, difficulty falling asleep, diminished interest or pleasure, excessive worry and fatigue but denies depressed mood, difficulty concentrating, feelings of guilt, loss of appetite, restlessness or thoughts of or suicide. The patient's relieving factors are medication. The patient denies any headache, nausea and sweating. Additional information: Pt sees Dr. Jaquez at [facility] who manages her treatment. diabetes The diabetes silvana litus began in 2014. The problem is stable. Patient did not use medication, return for a follow-up, or use education materials. Associated symptoms include: dysesthesias - numbness. Pertinent negatives include blurred vision, burning of extremities, chest pain, diarrhea, dyspnea, foot ulcers, frequent infections, frequent urination and slow healing wounds / sores. Additional information: pt has been out of metformin x 3 months. states it has been a while since she had labs.. chronic bronchitis pt uses inhal er for wheezing and chronic bronchitis. has been out of the ventolin. Functional Status Date Functional Assessmen t No Information Instructions Date Instruction Additional Infor mation if we treat your add iction- stop smoking can help with addiction management Related to Tobacco use Discussed lab result s from last ovdiscussed low glycemic diet and weight losscontinue metformin Related to Type 2 diabetes mellitus without complications Pt states she went t o [facility] ER 10 days ago who prescribed her tramadol. [facility] has no ER visit regarding her knees from the last month. [facility] does not have tramadol as being prescribed to her. She saw her Ortho yesterday who recommended tylenol for pain. Will get millenium today. I do not recommend tramadol at this time Related to Pain in unspecified knee i will refill the fabiola roldan's ventolin todaywill get records from prior pcp at [facility]. Related to Chronic bronchitis pt will continue to [facility] with [facility] Related to Anxiety pt will continue to follow up with [facility] for [facility] Related to Depression Will check a1c and l abs today to evaluatept has been out of metformin x 3 months, will refill today. follow up in 3 months. pt needs to follow low glycemic diet and work on weight loss Related to Type 2 diabetes mellitus without complications Hypertension education Related t o Essential (primary) hypertension Weight control education Related to Essential (primary) hypertension As per patient privacy policy some of the clinical information may not be visible. Assessments Type Assessment Date No Information Patient Care Teams Name Effective Dates (start - stop) Status Members No Information
--- OUTSIDE RECORDS SUMMARY | 2025-03-17 10:40 | XMS_ITS ---
Author Organization [facility] Address [address] [place] [address] Care Team Providers Care Assistant Nurse Manager Name Role Phone Martínez Lovelace MD Primary Care Provider Unavailab Carmella Paula Unavailable [phone] Allergies Allergen (clinical drug ingredient) Drug/Non Drug Allergy documented on EMR Reaction Allergy Type Onset Date Status ibuprofen Ibuprofen Unknown Drug Allergy Active Diclofenac Unknown Drug Allergy Active ketorolac Ketorolac Unknown Drug Allergy Active Results Component Value Reference Range Flag Notes Urine Drug Screen (cup read) - 42389 Reviewed date:03/17/2025 03:38:11 PM Interpretation: Performing Lab: Notes/Report: OXY + Urine Confirmation Panel (in strument) - [id number] Reviewed date:03/23/2025 03:06:19 PM Interpretation: Performing Lab: Notes/Report: 6-Acetylmorphine 0 <6 ng/mL N This sarah t was developed and its performance characteristics determined by [facility]. It has not been cleared or approved by the U.S. Food and Drug Administration. 7-Aminoclonazepam 0 <60 ng/mL N This te st was developed and its performance characteristics determined by [facility]. It has not been cleared or approved by the U.S. Food and Drug Administration. Alprazolam 0 <60 ng/mL N This test was developed and its performance characteristics determined by [facility]. It has not been cleared or approved by the U.S. Food and Drug Administration. Amphetamine 0 <75 ng/mL N This test was developed and its performance characteristics determined by [facility]. It has not been cleared or approved by the U.S. Food and Drug Administration. aOH-Alprazolam 0 <60 ng/mL N This test was developed and its performance characteristics determined by [facility]. It has not been cleared or approved by the U.S. Food and Drug Administration. Buprenorphine 0.0 <7.5 ng/mL N This test w as developed and its performance characteristics determined by [facility]. It has not been cleared or approved by the U.S. Food and Drug Administration. Norbuprenorphine 0.0 <37.5 ng/mL N This te st was developed and its performance characteristics determined by [facility]. It has not been cleared or approved by the U.S. Food and Drug Administration. Carisoprodol 0 <75 ng/mL N This test wa s developed and its performance characteristics determined by [facility]. It has not been cleared or approved by the U.S. Food and Drug Administration. Codeine 0 <75 ng/mL N This test was developed and its performance characteristics determined by [facility]. It has not been cleared or approved by the U.S. Food and Drug Administration. EDDP 0 <75 ng/mL N This test was developed and its performance characteristics determined by [facility]. It has not been cleared or approved by the U.S. Food and Drug Administration. Fentanyl 0 <6 ng/mL N This test was developed and its performance characteristics determined by [facility]. It has not been cleared or approved by the U.S. Food and Drug Administration. Hydrocodone 0 <75 ng/mL N This test was developed and its performance characteristics determined by [facility]. It has not been cleared or approved by the U.S. Food and Drug Administration. Hydromorphone 0 <75 ng/mL N This test w as developed and its performance characteristics determined by [facility]. It has not been cleared or approved by the U.S. Food and Drug Administration. Lorazepam 0 <60 ng/mL N This test was developed and its performance characteristics determined by [facility]. It has not been cleared or approved by the U.S. Food and Drug Administration. MDMA 0 <75 ng/mL N This test was developed and its performance characteristics determined by [facility]. It has not been cleared or approved by the U.S. Food and Drug Administration. Meperidine 0.0 <37.5 ng/mL N This test was developed and its performance characteristics determined by [facility]. It has not been cleared or approved by the U.S. Food and Drug Administration. Meprobamate 0 <75 ng/mL N This test was developed and its performance characteristics determined by [facility]. It has not been cleared or approved by the U.S. Food and Drug Administration. Methamphetamine 0 <75 ng/mL N This test was developed and its performance characteristics determined by [facility]. It has not been cleared or approved by the U.S. Food and Drug Administration. Methadone 0 <75 ng/mL N This test was developed and its performance characteristics determined by [facility]. It has not been cleared or approved by the U.S. Food and Drug Administration. Morphine 0 <75 ng/mL N This test was developed and its performance characteristics determined by [facility]. It has not been cleared or approved by the U.S. Food and Drug Administration. Nordiazepam 0 <60 ng/mL N This test was developed and its performance characteristics determined by [facility]. It has not been cleared or approved by the U.S. Food and Drug Administration. Norfentanyl 0 <6 ng/mL N This test was developed and its performance characteristics determined by [facility]. It has not been cleared or approved by the U.S. Food and Drug Administration. Normeperidine 0.0 <37.5 ng/mL N This test was developed and its performance characteristics determined by [facility]. It has not been cleared or approved by the U.S. Food and Drug Administration. O-desmethyltramadol 0 <75 ng/mL N This test was developed and its performance characteristics determined by [facility]. It has not been cleared or approved by the U.S. Food and Drug Administration. Oxazepam 0 <60 ng/mL N This test was developed and its performance characteristics determined by [facility]. It has not been cleared or approved by the U.S. Food and Drug Administration. Oxycodone 215.1 <37.5 ng/mL H This test was developed and its performance characteristics determined by [facility]. It has not been cleared or approved by the U.S. Food and Drug Administration. Oxymorphone 0 <75 ng/mL N This test was developed and its performance characteristics determined by [facility]. It has not been cleared or approved by the U.S. Food and Drug Administration. Phencyclidine 0.0 <7.5 ng/mL N This test w as developed and its performance characteristics determined by [facility]. It has not been cleared or approved by the U.S. Food and Drug Administration. Tapentadol 0.0 <37.5 ng/mL N This test was developed and its performance characteristics determined by [facility]. It has not been cleared or approved by the U.S. Food and Drug Administration. Temazepam 0 <60 ng/mL N This test was developed and its performance characteristics determined by [facility]. It has not been cleared or approved by the U.S. Food and Drug Administration. Tramadol 0 <75 ng/mL N This test was developed and its performance characteristics determined by [facility]. It has not been cleared or approved by the U.S. Food and Drug Administration. Norhydrocodone 0 <75 ng/mL N This test was developed and its performance characteristics determined by [facility]. It has not been cleared or approved by the U.S. Food and Drug Administration. Noroxycodone 426 <38 ng/mL H This test wa s developed and its performance characteristics determined by [facility]. It has not been cleared or approved by the U.S. Food and Drug Administration. Pregabalin 0 <225 ng/mL N This test was developed and its performance characteristics determined by [facility]. It has not been cleared or approved by the U.S. Food and Drug Administration. Gabapentin >55097 <225 ng/mL > This test was developed and its performance characteristics determined by [facility]. It has not been cleared or approved by the U.S. Food and Drug Administration. Benzoylecgonine 0.0 <37.5 ng/mL N This sarah t was developed and its performance characteristics determined by [facility]. It has not been cleared or approved by the U.S. Food and Drug Administration. 4-Hydroxy Xylazine 0 <25 ng/mL N This t est was developed and its performance characteristics determined by [facility]. It has not been cleared or approved by the U.S. Food and Drug Administration. REASON FOR VISIT 2 month, RK out of office 7-9 Medications Medication SIG (Take, Route, Frequency, Duration) Notes Start Date End Date Status Omeprazole *Pick strength-form from [facility] for eRX* Active Spironolactone *Pick strength-form from [facility] for eRX* Active Metformin *Reorder from [facility] for eRx and Interaction Alerts* Active montelukast *Reorder from [facility] for eRx and Interaction Alerts* Active Lisinopril *[facility]* Active Doxepin *[facility]order from [facility] for [facility] and Interaction Alerts* Active Gabapentin 300 MG Capsule 1 capsule Orally three times a day; Duration: 30 days Fill from previous Rx Active hydrOXYzine HCl *[facility] from [facility] for [facility]* Active Ferrous Gluconate *Pick strength-form from [facility] for [facility]* Active Gabapentin *Pick strength-form from [facility] for [facility]* Active Atenolol *Pick strength-form from [facility] for [facility]* Active Wellbutrin SR *Pick strength-form from [facility] for [facility]* Active Metoprolol Tartrate 25 MG Tablet 1 tablet with food Orally once a day 01/20/2025 Active Amitriptyline *[facility]order from [facility] for eRx and Interaction Alerts* Active Isosorbide Dinitrate 30 MG Tablet 1 tablet Orally Twice a day 01/20/2025 Active Social History Social History Additional Details [...] every day smoker, Working currently? 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 She continues with mid back and lower back pain but does feel her medication helps with this. She is out of her medication a couple of days early and admits to self escalation. I did have a long discussion about compliance. She states that their daughter has been coming around more frequently and they have been going on walks with her 4 times a week. She states since she is not used to the increased activity she has had some increased pain but is enjoying going on the walks and spending time with her daughter. I did discuss lifestyle modifications as well as a bowel regimen. She denies any changes in her health since we last seen her any untoward side effects of medication. She will continue her medication at present level and return to clinic in 2 months to monitor for treatment effectiveness and compliance as well as for biannual appointment with Dr. Venegas. The patient continues with chronic pain requiring treatment to help restore function and improve quality of life. Risks of opioid therapy as well as interaction of opioids with alcohol, illicit drugs, muscle relaxers, and other sedative medications are reviewed briefly with patient again today. The patient has trialed all other reasonable treatment options and uses the medication to alleviate pain in order to remain active and rest with less pain. No clinically relevant medication side effects are noted. Last UDS and [employer] reviewed today. Patient is advised that best long-term goals include increased activity, core strengthening, proper weight management, coping strategies, avoidance of painful triggers, and targeted interventional therapy. We will see the patient for routine follow up in accordance with all clinic policies. We did remind patient today of current guidelines to decrease opioid when possible. We will continue to stress nonopioid treatment. RECOMMEND URINE TESTING TODAY Urine drug screening will be performed today to monitor compliance with opioid therapy or to serve as a baseline screen for a patient who may be a candidate for opioid therapy in the future, pending UDS results. We will monitor with in-office testing (rapid testing) today and review the results prior to dispensing prescription. All positive results will be sent for quantitative analysis to ensure accuracy and quantify amounts. Any expected positive results that return negative will also be sent for quantitative analysis. Any questionable read or any medication we cannot test for in the office confidently will be sent for quantitative analysis, as well. Patient has been made aware of this policy and agrees to abide by our urine testing policy. 03/17/2025 Thoracic radiculopathy (ICD-10 - M54.14) 03/17/2025 Degeneration of intervertebral disc of lumbar region with discogenic back pain (ICD-10 - M51.360) 03/17/2025 L-S radiculopathy (ICD-10 - M54.17) 03/17/2025 Unspecified abnormalities of gait and mobility (ICD-10 - R26.9) 03/17/2025 Thoracic spondylosis (ICD-10 - M47.814) 03/17/2025 Analgesic use (ICD-10 - Z79.899) 03/17/2025 Lumbosacral spondylosis (ICD-10 - M47.817) Plan Of Treatment Treatment Notes Assessment Notes Chronic pain syndrome I had a nice discussion with the patient today regarding her chronic pain complaints. She continues with mid back and lower back pain but does feel her medication helps with this. She is out of her medication a couple of days early and admits to self escalation. I did have a long discussion about compliance. She states that their daughter has been coming around more frequently and they have been going on walks with her 4 times a week. She states since she is not used to the increased activity she has had some increased pain but is enjoying going on the walks and spending time with her daughter. I did discuss lifestyle modifications as well as a bowel regimen. She denies any changes in her health since we last seen her any untoward side effects of medication. She will continue her medication at present level and return to clinic in 2 months to monitor for treatment effectiveness and compliance as well as for biannual appointment with Dr. Venegas. The patient continues with chronic pain requiring treatment to help restore function and improve quality of life. Risks of opioid therapy as well as interaction of opioids with alcohol, illicit drugs, muscle relaxers, and other sedative medications are reviewed briefly with patient again today. The patient has trialed all other reasonable treatment options and uses the medication to alleviate pain in order to remain active and rest with less pain. No clinically relevant medication side effects are noted. Last UDS and [employer] reviewed today. Patient is advised that best long-term goals include increased activity, core strengthening, proper weight management, coping strategies, avoidance of painful triggers, and targeted interventional therapy. We will see the patient for routine follow up in accordance with all clinic policies. We did remind patient today of current guidelines to decrease opioid when possible. We will continue to stress nonopioid treatment. RECOMMEND URINE TESTING TODAY Urine drug screening will be performed today to monitor compliance with opioid therapy or to serve as a baseline screen for a patient who may be a candidate for opioid therapy in the future, pending UDS results. We will monitor with in-office testing (rapid testing) today and review the results prior to dispensing prescription. All positive results will be sent for quantitative analysis to ensure accuracy and quantify amounts. Any expected positive results that return negative will also be sent for quantitative analysis. Any questionable read or any medication we cannot test for in the office confidently will be sent for quantitative analysis, as well. Patient has been made aware of this policy and agrees to abide by our urine testing policy. Next Appt Details Provider Name:Martínez Venegas, 05/18/2025 09:20:00 AM, [address] [place], [address], History and Physical Notes * HPI (History of Present Illness) Category Sub-Category Detail Notes Category Not es Provider Note The patient pr esents today for 2 month follow-up. She is currently prescribed oxycodone 5 mg 105/month and gabapentin 300 mg 3/day which she feels is working reasonably well. She continues with lower back and mid back pain. Her last UDS was negative for medication. However, she was out of her medication which was consistent with her fill date. UDS was collected today and will be sent to lab for reference. We will review results with patient at next visit. PDMP was reviewed and found to be compliant with care. She is out of her medication today a couple of days early and admits to self escalation. Pain Details Pain Location neck, mid back l ower back, headaches, B/L shoulders, B/L feet, B/L knees Quality Aching, throbbing, t stephen, [id number] Severity of pain at its worst 9/10 Severity of pain at its best 7/10 Severity of average pain 9/10 Severity of pain right now 8/10 Severity of pain on medication 7/10 When did you last take your pain medicin e this morning Medication Details Do you have a lock b ox or safe place for medication away from minors and/or others? Yes Do you have any leftover pain medication building up at your house? No Do you understand that pain medication c an be addicting and can cause overdose? Yes Do you feel you can REDUCE the amount of medication you take today? No Opioid Assessment Tools Pill Count out of meds Last Urine Drug Screen 01/20/2025 Conf Today's Rapid Urine Drug Screen shows co nsistent with prescribed medication [place] Prescription Monitoring Program [place] PDMP, found to be consistent with treatment history, reviewed today Treatment History Test undergone in the past None Ipma Past medication you have taken Oxycodone 5mg #105 Treatments you have had None Ipma Examination Category Sub-Category Detail Notes Category Not es General Examination General patient is w ell developed, well-nourished, alert and oriented, has good hygiene ENT oral mucosa moist an d pink Eyes pupils are equal, ro und and reactive to light, sclera/conjuctiva normal Lumbar Spine Palpation of Lumbar Spine reveal s hyperextension of lumbar spine and bilateral palpitation of lumbar facets reproduces back pain Palpation of Lumbar Intervertebral Space (Discs) there is no pain noted Bilateral Palpation of Sacroiliac Joint reveals no pain Palpation of Greater Trochanteric Bursa reveals no tenderness on both sides Musculoskeletal - Low Back Muscles Trigger Point s no palpable trigger points are noted Gaenslen's Test Negative Neurological Mental Status awake, oriented to person, oriented to place, oriented to time, memory intact, mood and affect are normal Motor Strength Left UE strength - Flexors: 5/5 Right UE strength - Flexors: 5/5 Left UE strength - Extensors: 5/5 Right UE strength - Extensors: 5/5 Left UE Tone: normal Right UE Tone: normal Left LE strength - Flexors: 5/5 Right LE strength - Flexors: 5/5 Left LE strength - Extensors: 5/5 Right LE strength - Extensors: 5/5 Left LE Tone: normal Right LE Tone: normal Progress Notes * Irene CURRYB: [birth year] (39 yo F)Acc No.[id number]:03/17/2025 Progress Notes Patient: Lorraine Newell Provider: RADHA Borges :1985 A ge:39 Y S ex:Female Date:03/17/2025 Address:[address] [place], [place] [id number] Pcp:Martínez Lovelace MD Check In:02:30 PM [employer] Subjective: * Chief Complaints: * 2 month, RK out of office 7-9 * HPI: P ain Details: Pain Location n natalee, mid back lower back, headaches, B/L shoulders, B/L feet, B/L knees. Quality A isiah, throbbing, tender, [id number]. Severity of pain at its worst /10. Severity of pain at its best 10. Severity of pain on medication . Severity of average pain /10. Severity of pain right now . When did you last take your pain medicine t his morning.? M edication Details: Do you have a lock box or safe place for medication away from minors and/or others? Y es. Do you have any leftover pain medication building up at your house? N o. Do you understand that pain medication can be addicting and can cause overdose? Y es. Do you feel you can REDUCE the amount of medication you take today? N o. O pioid Assessment Tools: Pill Count o ut of meds. Last Urine Drug Screen Conf. Today's Rapid Urine Drug Screen s hows consistent with prescribed medication. [place] Monitoring [place], found to be consistent with treatment history, reviewed today. T reatment History: Test undergone in the past N one Ipma. Past medication you have taken O xycodone 5mg #105. Treatments you have had N one Ipma. Nimo gonsalez Note: The patient presents today for 2 month follow-up. She is currently prescribed oxycodone 5 mg 105/month and gabapentin 300 mg 3/day which she feels is working reasonably well. She continues with lower back and mid back pain. Her last UDS was negative for medication. However, she was out of her medication which was consistent with her fill date. UDS was collected today and will be sent to lab for reference. We will review results with patient at next visit. PDMP was reviewed and found to be compliant with care. She is out of her medication today a couple of days early and admits to self escalation. * ROS: G eneral - Multi System: Constitutional D enies, f ever, recent weight gain, recent weight loss, fatigue. R espiratory D enies, wheezing, shortness of breath, cough, snoring. G astrointestinal D enies, nausea, vomiting, constipation, abdominal pain. P sychiatric D enies, , anxiety, depression, panic attacks, suicidal thoughts. * Medical History: No Medical History Documented Medical History Verified * Surgical History: Cholecystectomy * Social History: M igrated Social History: [...] orking currently? - No. * Medications: T akingAmitriptyline , Notes to Pharmacist: *[facility] and Interaction Alerts*Atenolol , Notes to Pharmacist: *Pick strength-form from [facility] for [facility]*Doxepin , Notes to Pharmacist: *Re[facility] from [facility] for [facility]Rx and Interaction Alerts*Ferrous Gluconate , Notes to Pharmacist: *Pick strength-form from [facility] for [facility]*Gabapentin , Notes to Pharmacist: *Pick strength-[facility] from [facility] for [facility]*Gabapentin 300 MG Capsule 1 capsule Orally three times a day , Notes to Pharmacist: Fill from previous RxhydrOXYzine HCl , Notes to Pharmacist: *[facility] for [facility]*Isosorbide Dinitrate 30 MG Tablet 1 tablet Orally Twice a day Lisinopril , Notes to Pharmacist: *Pick strength-form from [facility] for e[facility]*Metformin , Notes to Pharmacist: *[facility] from [facility] for [facility] and Interaction Alerts*Metoprolol Tartrate 25 MG Tablet 1 tablet with food Orally once a day montelukast , Notes to Pharmacist: *[facility] for [facility] and Interaction Alerts*Omeprazole , Notes to Pharmacist: *Pick [facility]Spironolactone , Notes to Pharmacist: *[facility]*Wellbutrin SR , Notes to Pharmacist: *[facility]*Taking Amitriptyline , Notes to Pharmacist: *[facility]*Taking Atenolol , Notes to Pharmacist: *[facility]*Taking Doxepin , Notes to Pharmacist: *[facility]*Taking Ferrous Gluconate , Notes to Pharmacist: *[facility]*Taking Gabapentin , Notes to Pharmacist: *[facility]*Taking Gabapentin 300 MG Capsule 1 capsule Orally three times a day , Notes to Pharmacist: Fill from previous RxTaking hydrOXYzine HCl , Notes to Pharmacist: *[facility]*Taking Isosorbide Dinitrate 30 MG Tablet 1 tablet Orally Twice a day Taking Lisinopril , Notes to Pharmacist: *[facility]*Taking Metformin , Notes to Pharmacist: *[facility]*Taking Metoprolol Tartrate 25 MG Tablet 1 tablet with food Orally once a day Taking montelukast , Notes to Pharmacist: *[facility]*Taking Omeprazole , Notes to Pharmacist: *[facility]*Taking Spironolactone , Notes to Pharmacist: *[facility]*Taking Wellbutrin SR , Notes to Pharmacist: *[facility]* * Allergies: I buprofen: AllergyKetorolac: AllergyDiclofenac: AllergyyesAllergies Verified. Objective: * Vitals: H t: 63.00 in, Ht-cm: 160.02 cm. * Examination: G eneral Examination: General p atient is well developed, well-nourished, alert and oriented, has good hygiene. ENT o ral mucosa moist and pink. Eyes p upils are equal, round and reactive to light, sclera/conjuctiva normal. L umbar Spine: Palpation of Lumbar Spine r eveals hyperextension of lumbar spine and bilateral palpitation of lumbar facets reproduces back pain. Palpation of Lumbar Intervertebral Space (Discs) t here is no pain noted. Bilateral Palpation of Sacroiliac Joint r eveals no pain.? Palpation of Greater Trochanteric Bursa r eveals no tenderness on both sides. M usculoskeletal - Low Back Muscles: Trigger Points n o palpable trigger points are noted. Gaenslen's Test N egative. N eurological: Mental Status a wake, oriented to person, oriented to place, oriented to time, memory intact, mood and affect are normal. Motor Strength ? Right UE strength - Flexors 5 /5 ? Left UE strength - E xtensors / ? Right UE strength - Extensors /5 ? Left UE Tone n ormal ? Right UE Tone n ormal ? Left LE strength - F lexors / ? Right LE strength - Flexors /5 ? Left LE strength - E xtensors / ? Right LE strength - Extensors /5 ? Left LE Tone n ormal ? Right LE Tone n ormal ? Assessment: * Assessment: 1. C hronic pain syndrome - G89.4 (Primary) 2 . T horacic radiculopathy - M54.14 3 . 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 L -S radiculopathy - M54.17 5 . U nspecified abnormalities of gait and mobility - R26.9 6 . T horacic spondylosis - M47.814 7 . A nalgesic use - Z79.899 8 . L umbosacral spondylosis - M47.817 Plan: * Treatment: * Labs: * L ab: Urine Drug Screen (cup read) - 70594 (Collection Date & Time - 03/17/2025) Value Reference Range O XY + ?Lab: Urine Confirmation Panel (instrument) - [id number] (Collection Date & Time - 03/17/2025) * Procedure Codes: 8 0305 DRUG TEST PRSMV DIR OPT OBS IH, Modifiers: QW Billing Information: * Visit Code: 93298 Office Visit, Est Pt., Level 4. * Procedure Codes: 80692 DRUG TEST PRSMV DIR OPT OBS IH. Modifiers: QW Care Plan Details* * Electronic signature of Sydni Collier APRN on 03/29/2025 at 06:39 PM CDT Sign off status: Pending * Provider: RADHA Borges Date: 0 03/17/2025 Generated for Aisha garcia/Mayco/Jose Elias on: 03/29/2025 06:39 PM CDT
[2025-03-29 18:32] VITALS: BP 148/86; PULSE 96; RESP 18; TEMP 36.9; O2SAT 94; BMI 49.6
[2025-03-29 18:39] VITALS: BP 148/86; PULSE 96; RESP 18; TEMP 36.9; O2SAT 94
--- OUTSIDE RECORDS SUMMARY | 2025-03-29 18:40 | XMS_ITS | Patient Health Record ---
Author Organization [facility] Address [address] [place] [address] Care Team Providers Care Wigs Salesperson Name Role Phone Martínez Lovelace MD Primary Care Provider Unavailab Carmella Paula Unavailable [phone] Migration, Provider Unavailable Unavailable Martínez Venegas Unavailable [phone] Allergies Allergen (clinical drug ingredient) Drug/Non Drug Allergy documented on EMR Reaction Allergy Type Onset Date Status ibuprofen Ibuprofen Unknown Drug Allergy Active Diclofenac Unknown Drug Allergy Active ketorolac Ketorolac Unknown Drug Allergy Active Results Component Value Reference Range Flag Notes Urine Drug Screen (cup read) - 79992 Reviewed date:03/17/2025 03:38:11 PM Interpretation: Performing Lab: Notes/Report: OXY + Urine Confirmation Panel (in strument) - [id number] Reviewed date:03/23/2025 03:06:19 PM Interpretation: Performing Lab: [...] the U.S. Food and Drug Administration. Gabapentin >73658 <225 ng/mL > This test was developed [...] by the U.S. Food and Drug Administration. Urine Drug Screen (cup read) - 89362 Reviewed date:11/18/2024 01:06:05 PM Interpretation:Negative Performing Lab: Notes/Report: Negative Urine Confirmation Panel (in strument) - [id number] Reviewed date:11/24/2024 02:49:57 PM Interpretation: Performing Lab: Notes/Report: 6-Acetylmorphine 0 [...] the U.S. Food and Drug Administration. Hydrocodone 3 <75 ng/mL N This test was developed [...] the U.S. Food and Drug Administration. O-desmethyltramadol 11 <75 ng/mL N This test was developed and its performance characteristics determined by [facility]. It has not been cleared or approved by the U.S. Food and Drug Administration. Oxazepam 0 <60 ng/mL N This test was developed and its performance characteristics determined by [facility]. It has not been cleared or approved by the U.S. Food and Drug Administration. Oxycodone 0.0 <37.5 ng/mL N This test was [...] the U.S. Food and Drug Administration. Tapentadol 5.8 <37.5 ng/mL N This test was developed and its performance characteristics determined by [facility]. It has not been cleared or approved by the U.S. Food and Drug Administration. Temazepam 2 <60 ng/mL N This test was developed and its performance characteristics determined by [facility]. It has not been cleared or approved by the U.S. Food and Drug Administration. Tramadol 6 <75 ng/mL N This test was developed and its performance characteristics determined by [facility]. It has not been cleared or approved by the U.S. Food and Drug Administration. Norhydrocodone 8 <75 ng/mL N This test was developed and its performance characteristics determined by [facility]. It has not been cleared or approved by the U.S. Food and Drug Administration. Noroxycodone 0 <38 ng/mL N This test wa s developed and its performance characteristics determined by [facility]. It has not been cleared or approved by the U.S. Food and Drug Administration. Pregabalin 0 <225 ng/mL N This test was developed and its performance characteristics determined by [facility]. It has not been cleared or approved by the U.S. Food and Drug Administration. Gabapentin >14282 <225 ng/mL > This test was developed [...] by the U.S. Food and Drug Administration. Urine Drug Screen (cup read) - 75913 Reviewed date:01/20/2025 02:13:11 PM Interpretation:Negative Performing Lab: Notes/Report: Negative Urine Confirmation Panel (in strument) - [id number] Reviewed date:01/24/2025 02:41:05 PM Interpretation: Performing Lab: Notes/Report: 6-Acetylmorphine 0 <6 ng/mL N This asrah t was developed and its performance characteristics [...] the U.S. Food and Drug Administration. Methadone 3 <75 ng/mL N This test was developed and its performance characteristics determined by [facility]. It has not been cleared or approved by the U.S. Food and Drug Administration. Morphine 2 <75 ng/mL N This test was developed [...] the U.S. Food and Drug Administration. Oxycodone 0.0 <37.5 ng/mL N This test was [...] the U.S. Food and Drug Administration. Tapentadol 3.5 <37.5 ng/mL N This test was developed [...] the U.S. Food and Drug Administration. Noroxycodone 0 <38 ng/mL N This test wa s developed and its performance characteristics determined by [facility]. It has not been cleared or approved by the U.S. Food and Drug Administration. Pregabalin 0 <225 ng/mL N This test was developed and its performance characteristics determined by [facility]. It has not been cleared or approved by the U.S. Food and Drug Administration. Gabapentin 4989 <225 ng/mL H This test was developed and [...] U.S. Food and Drug Administration. 4-Hydroxy Xylazine 6 <25 ng/mL N This t est was developed and its performance characteristics determined by [facility]. It has not been cleared or approved by the U.S. Food and Drug Administration. zzzUrine Drug Screen (confir InfoBasision by instrument) - 99159 Reviewed date:08/18/2024 12:41:36 PM Interpretation: Performing Lab: Notes/Report: Tox Results Reviewed date:11/24/2024 02:49:57 PM Interpretation: Performing Lab: Notes/Report: Tox Results Reviewed date:01/25/2025 08:35:38 AM Interpretation: Performing Lab: Notes/Report: Tox Results Reviewed date:03/23/2025 03:23:59 PM Interpretation: Performing Lab: Notes/Report: Reason For Referral No Information Medications Medication SIG (Take, Route, Frequency, Duration) Notes Start Date End Date Status Atenolol *Pick strength-form from [employer] for eRX* Active Wellbutrin SR *Pick strength-form from [email or web address] for eRX* Active Doxepin *Reorder from [email or web address] for eRx and Interaction Alerts* Active Metoprolol Tartrate 25 MG Tablet 1 tablet with food Orally once a day 01/20/2025 Active Omeprazole *[facility]* Active Amitriptyline *[facility] from [facility] for [facility] and Interaction Alerts* Active Spironolactone *[facility]* Active hydrOXYzine HCl *[facility]* Active Ferrous Gluconate *[facility]* Active Gabapentin *[facility]-form from [facility] for [facility]* Active oxyCODONE HCl 5 MG Tablet 1 tablet as needed Orally every 6 hrs; Duration: 30 days As needed DO not exceed 3.5 per day Fill on 03-18-25 03/17/2025 04/17/2025 Active oxyCODONE HCl 5 MG Tablet 1 tablet as needed Orally every 6 hrs; Duration: 30 days As needed DO not exceed 3.5 per day Fill on 04-19-25 03/17/2025 05/19/2025 Active Metformin *[facility] for [facility] and Interaction Alerts* Active Gabapentin 300 MG Capsule 1 capsule Orally three times a day; Duration: 30 days As needed Fill from previous Rx 03/17/2025 05/17/2025 Active Isosorbide Dinitrate 30 MG Tablet 1 tablet Orally Twice a day 01/20/2025 Active montelukast *[facility] for [facility] and Interaction Alerts* Active Lisinopril *[facility]form from [facility] for [facility]* Active Social History Social History Additional Details [...] every day smoker, Working currently? - No Problems Problem Type SNOMED Code ICD Code Onset Dates Problem Status W/U Status Risk Notes Problem Morbid obesity (disorder) (982235762) Morbid (severe) obesity due to excess calories (E66.01) 02/27/20 24 Active confirmed Problem Chronic pain syndrome (528028781) Chronic pain syndrome (G89.4) 02/27/20 Active confirmed Problem Thoracic spondylosis without myelopathy (370394880) Other spondylosis with radiculopathy, thoracic region (M47.24) 02/27/20 Active confirmed Problem Lumbosacral spondylosis without myelopathy (75752069) Other spondylosis with radiculopathy, lumbosacral region (M47.27) 02/27/20 Active confirmed Problem Degeneration of lumbar intervertebral disc (59805530) Other intervertebral disc degeneration, lumbar region (M51.36) 02/27/20 Active confirmed Problem Abnormal gait (46570303) Unspecified abnormalities of gait and mobility (R26.9) 02/27/20 Active confirmed Problem High risk drug monitoring status (370550827) long-term (current) use of opiate analgesic (Z79.891) Active confirmed Problem Thoracic radiculopathy (98262884) Thoracic radiculopathy (M54.14) Active confirmed Problem Thoracic spondylosis (682617765) Thoracic spondylosis (M47.814) Active confirmed Problem Lumbosacral radiculopathy (2881245) L-S radiculopathy (M54.17) Active confirmed Problem Lumbosacral spondylosis (868391823) Lumbosacral spondylosis (M47.817) Active confirmed Vital Signs Height-cm 160.02 cm 03/17/2025 Height 63.00 in 03/17/2025 Encounters Encounter Location Date Provider Diagnosis [facility] [address] [address] 07/14/2024 Martínez Venegas [facility] [address] [address] 03/17/2025 Carmella Collier Chronic pain syndrom e G89.4 ; Thoracic radiculopathy M54.14 ; Degeneration of intervertebral disc of lumbar region with discogenic back pain M51.360 ; L-S radiculopathy M54.17 ; Unspecified abnormalities of gait and mobility R26.9 ; Thoracic spondylosis M47.814 ; Analgesic use Z79.899 and Lumbosacral spondylosis M47.817 [facility] [address] [address] 04/01/2024 Carmella Nando [facility] [place] [address] [place] [address] 04/08/2024 Carmella Collier [facility] [place] [address] [place] [address] 05/06/2024 Martínez Venegas [facility] [place] [address] [place] [address] 06/10/2024 Carmella Collier [facility] [place] [address] [place] [address] 08/12/2024 Carmella Collier Chronic pain syndrom e G89.4 ; Thoracic radiculopathy M54.14 ; Thoracic spondylosis M47.814 ; Degeneration of intervertebral disc of lumbar region with discogenic back pain M51.360 ; L-S radiculopathy M54.17 ; Arthritis of lumbosacral spine M47.817 and ocean transportation 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 (current) use of opiate analgesic Z79.891 [facility] [place] [address] [place] [address] 09/15/2024 Martínez Venegas Chronic pain syndrom e G89.4 ; Thoracic radiculopathy M54.14 ; Thoracic spondylosis M47.814 ; Degeneration of intervertebral disc of lumbar region with discogenic back pain M51.360 ; L-S radiculopathy M54.17 ; Lumbosacral spondylosis M47.817 ; Unspecified abnormalities of gait and mobility R26.9 and ocean transportation 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 (current) use of opiate analgesic Z79.891 [facility] [place] [address] [place] [address] 11/18/2024 Carmella Collier Chronic pain syndrom e G89.4 ; Thoracic radiculopathy M54.14 ; Thoracic spondylosis M47.814 ; Degeneration of intervertebral disc of lumbar region with discogenic back pain M51.360 ; L-S radiculopathy M54.17 ; Lumbosacral spondylosis M47.817 ; Unspecified abnormalities of gait and mobility R26.9 and ocean transportation 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 (current) use of opiate analgesic Z79.891 [facility] [place] [address] [place] [address] 01/20/2025 Carmella Collier Chronic pain syndrom e G89.4 ; Thoracic radiculopathy M54.14 ; Degeneration of intervertebral disc of lumbar region with discogenic back pain M51.360 ; L-S radiculopathy M54.17 ; Unspecified abnormalities of gait and mobility R26.9 ; ocean transportation 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 (current) use of opiate analgesic Z79.891 ; Lumbosacral spondylosis M47.817 and Thoracic spondylosis M47.814 [facility] 0 0 07/03/2024 Provider Migration [facility] 0 0 07/04/2024 Provider Migration [facility] [address] [place] [address] 08/12/[address] [facility] [place] [address] [place] [address] 08/16/2024 Martínez Friedmanolga [facility] [place] [address] [place] [address] 11/18/2024 Martínez Venegas Thoracic radiculopathy M54.14 [facility] [place] [address] [place] [address] 12/14/2024 Carmella Collier [facility] [place] [address] [place] [address] 01/20/2025 Martínez Venegas [facility] [place] [address] [place] [address] 02/08/[address] [facility] [place] [address] [place] [address] 03/17/2025 Martínez Venegas Chronic pain syndrom e G89.4 Assessments Encounter Date Diagnosis (ICD Code) Assessment Notes Treatment Notes Treatment Clinical Notes Section Notes 08/12/2024 Chronic pain syndrome (ICD-10 - G89.4) 08/12/2024 Thoracic radiculopathy (ICD-10 - M54.14) 09/15/2024 Thoracic radiculopathy (ICD-10 - M54.14) 09/15/2024 Chronic pain syndrome (ICD-10 - G89.4) I had a nice visit with the patient today regarding her chronic pain issues. She is apparently going in for more imaging and then a follow up with Dr. Rios to discuss a possible cervical surgery. She did inquire about increasing the frequency of her medications but for now I would prefer to leave it the same so we can hopefully decrease her rate of tolerance. She verbalized understanding so we will continue her medications unchanged for the next couple of months and follow up with her thereafter. 11/18/2024 Thoracic radiculopathy (ICD-10 - M54.14) 11/18/2024 Chronic pain syndrome (ICD-10 - G89.4) I had a nice discussion with the patient today regarding her chronic pain complaints. She states she is doing reasonably well on her current medication regimen and it allows her to function better overall. She states that she has been having to have a lot of blood work done as her white blood cell count and red blood cell count has been out of whack. She denies any other changes since we last seen her any untoward side effects of the medication. She will continue her medication at present level and return to clinic in 2 months to monitor for treatment effectiveness and compliance. 01/20/2025 Chronic pain syndrome (ICD-10 - G89.4) I had a nice discussion with the patient today regarding her chronic pain complaints. She states on Friday she fell over her dog and fell off of her front porch. She states she was taken to the ER by ambulance but everything checked out okay. She states she was given some pain medication at the ER. She is out of her medication today which is consistent with fill date. Her last UDS was negative for medication however she was out of her medication which was consistent with fill date then as well. I did explain she must keep her appointment so we can show compliance through pill counts and drug screens. She continues with mid back and lower back pain but does feel her medication allows her to function better overall. She denies any other changes since we last seen her or any untoward side effects of the medication. She will return to clinic in 2 months to [...] effects are noted. Last UDS and [place] [employer]ICE PRESIDENT EDUCATION reviewed today. Patient is advised that best [...] to abide by our urine testing policy. 01/20/2025 Thoracic radiculopathy (ICD-10 - M54.14) 03/17/2025 Chronic pain syndrome (ICD-10 - G89.4) [...] effects are noted. Last UDS and [place] [employer]ICE PRESIDENT EDUCATION reviewed today. Patient is advised that best [...] 03/17/2025 Thoracic radiculopathy (ICD-10 - M54.14) 03/17/2025 Chronic pain syndrome (ICD-10 - G89.4) 03/17/2025 Degeneration of intervertebral disc of lumbar region with discogenic back pain (ICD-10 - M51.360) 01/20/2025 Degeneration of intervertebral disc of lumbar region with discogenic back pain (ICD-10 - M51.360) 11/18/2024 Thoracic radiculopathy (ICD-10 - M54.14) Thoracic radiculopathy Continue oxyCODONE HCl Tablet, 5 MG, 0.5-1 tablet as needed, Orally, every 6 hrs, As needed, Not to exceed 3.5/day, 30 days, 105, Start Date: 11/18/2024, Stop Date: 12/18/2024, Refills 0, Notes to Pharmacist: Fill date 11/18/24 Continue oxyCODONE HCl Tablet, 5 MG, 0.5-1 tablet as needed, Orally, every 6 hrs, As needed, Not to exceed 3.5/day, 30 days, 105, Start Date: 12/18/2024, Stop Date: 01/17/2025, Refills 0, Notes to Pharmacist: Fill date 12/18/24 Continue Gabapentin Capsule, 300 MG, 1 capsule, Orally, Three times a day, 30 days, 90 Capsule, Start Date: 11/18/2024, Refills 1, Notes to Pharmacist: May fill 30 days from previous prescription Rx Sent To [facility] to sign 09/15/2024 Thoracic spondylosis (ICD-10 - M47.814) 08/12/2024 Thoracic spondylosis (ICD-10 - M47.814) 08/12/2024 Degeneration of intervertebral disc of lumbar region with discogenic back pain (ICD-10 - M51.360) 09/15/2024 Degeneration of intervertebral disc of lumbar region with discogenic back pain (ICD-10 - M51.360) 11/18/2024 Thoracic spondylosis (ICD-10 - M47.814) 01/20/2025 L-S radiculopathy (ICD-10 - M54.17) 03/17/2025 L-S radiculopathy (ICD-10 - M54.17) 11/18/2024 Degeneration of intervertebral disc of lumbar region with discogenic back pain (ICD-10 - M51.360) 03/17/2025 Unspecified abnormalities of gait and mobility (ICD-10 - R26.9) 01/20/2025 Unspecified abnormalities of gait and mobility (ICD-10 - R26.9) 08/12/2024 L-S radiculopathy (ICD-10 - M54.17) 09/15/2024 L-S radiculopathy (ICD-10 - M54.17) 09/15/2024 Lumbosacral spondylosis (ICD-10 - M47.817) 08/12/2024 Arthritis of lumbosacral spine (ICD-10 - M47.817) 01/20/2025 long-term (current) use of opiate analgesic (ICD-10 - Z79.891) 11/18/2024 L-S radiculopathy (ICD-10 - M54.17) 03/17/2025 Thoracic spondylosis (ICD-10 - M47.814) 01/20/2025 Lumbosacral spondylosis (ICD-10 - M47.817) 11/18/2024 Lumbosacral spondylosis (ICD-10 - M47.817) 09/15/2024 Unspecified abnormalities of gait and mobility (ICD-10 - R26.9) 03/17/2025 Analgesic use (ICD-10 - Z79.899) 08/12/2024 long-term (current) use of opiate analgesic (ICD-10 - Z79.891) 03/17/2025 Lumbosacral spondylosis (ICD-10 - M47.817) 09/15/2024 long-term (current) use of opiate analgesic (ICD-10 - Z79.891) 11/18/2024 Unspecified abnormalities of gait and mobility (ICD-10 - R26.9) 01/20/2025 Thoracic spondylosis (ICD-10 - M47.814) 11/18/2024 ocean transportation 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 (current) use of opiate analgesic (ICD-10 - Z79.891) RECOMMEND URINE TESTING TODAY Urine drug screening [...] to abide by our urine testing policy. 08/12/2024 Other I had a nice discussion with the patient today regarding her chronic pain complaints. She continues with mid back and lower back pain. She feels her medication is working reasonably well for her. She does feel it does help some with the increase of her gabapentin. She states on Thanksgiving she sprained her ankle but is wearing a brace that helps. She denies any other changes since we last seen her any untoward side effects of the medication. She will continue her medication at present level and return to clinic in 1 month to monitor for treatment effectiveness and compliance. 09/15/2024 Other [place], Francisco Alexandre, am scribing for Martínez Venegas. I, Martínez Venegas, personally performed the services described in this documentation, as scribed by Francisco Alexandre, and it is both accurate and complete. Plan Of Treatment Next Appt Details Provider Name:Martínez Venegas, 05/18/2025 09:20:00 AM, [address] [place], [address], Insurance Providers Payer Name Payer Address Payer Phone Subscriber Number Group Number Insured Name Patient Relationship to Insured Coverage Start Date Coverage End Date [employer] Medicare Replacement [address] [address] [place] [address] [id number] Lorraine Curry Self - patient is the insured 1 [place] Medicaid [address] [place] [address] [id number] Lorraine Curry Self - patient is the insured 2 [place] [address] [address] [place] [address] [id number] Lorraine Curry Self - patient is the insured Medical (General) History Surgical History Surgery Date(Month/Year) Cholecystectomy Hospitalization History Reason Date(Month/Year) See Surgical Hx
--- NOTE | 2025-03-29 18:42 | ECG_ITS ---
[employer] [facility] Test Date: 2025-03-29 Pat Name: Lorraine Curry Department: Room: Gender: Female Geodesist: : 1985 Requested By: Brooks Mar Order Number: [id number] Bernal MD: Cullen Gavin M.D. Measurements Intervals [place] Rate: 89 P: 55 DC: 172 QRS: 35 QRSD: 107 T: 37 QT: 376 QTc: 458 Interpretive Statements SINUS RHYTHM LEFT ATRIAL ENLARGEMENT [-0.15mV P-WAVE IN V1/V2] Compared to ECG 12/14/2024 16:30:31 Sinus tachycardia no longer present Electronically Signed On 03-31-2025 09:04:29 CDT by Cullen Gavin M.D. [id number]
--- NOTE | 2025-03-29 18:50 | ED_ITS ---
HPI - Chest Pain 2 General: Chief Complaint: Chest Pain Stated Complaint: Chest Pain Time Seen by Provider: 03/29/25 18:41 History of Present Illness: Patient comes in with chest pain. States that about an hour prior to arrival she developed midsternal chest pain which she describes as sharp, burning, then radiated to her left upper chest and left arm. States it lasted about 30 minutes and went away. Patient is a history of diabetes and she smokes. She also has a history of A-fib but no history of CAD. Physical exam is unremarkable. Will check labs, EKG, and reassess. Associated symptoms: Deny abdominal pain, dyspnea, fever(s), nausea, palpitations or vomiting Related Data Home Medications ?Medication ?Instructions ?Recorded ?Confirmed gabapentin 300 mg capsule 300 mg PO TID 12/14/2403/21 Previous Rx's ?Medication ?Instructions ?Recorded lancets (Accu-Chek Fastclix Lancet #100 ea 04/18/20 Drum) ASO to the Left Ankle #1 ea 05/16/22 ciclopirox 0.77 % topical cream 1 applic topical BID 4 weeks #30 07/15/22 grams clobetasol 0.05 % topical ointment 1 applic topical BI D 2 weeks #60 09/11/22 grams hinged knee brace #1 ea 12/26/22 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 meter (Accu-Chek #1 ea 01/02/23 Guide Glucose Meter) lancets (Accu-Chek Softclix #100 ea 01/02/23 Lancets) blood sugar diagnostic (Accu-Chek #200 strips 04/04/23 Guide test strips) insulin pump cart,automated,BT #5 ea 04/07/23 (Omnipod 5 G6 Pods (Gen 5) subcutaneous cartridge) 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,television receiver analyzer,cont #1 ea 04/28/23 (Dexcom G7 Gasoline Power Shovel Operator) albuterol sulfate 90 mcg/actuation See Rx Instructions .Route 02/04/24 aerosol inhaler .COMPLEX #8.5 grams oxycodone 5 mg tablet 5 mg PO Q6H PRN pain postop 7 days 02/20/24 #28 tabs pen needle, diabetic 32 gauge x #300 ea 03/18/24 1/4 (BD Ultra-Fine Micro Pen Needle) Diabetic shoes with 3 sets of #1 ea 07/27/24 inserts montelukast 10 mg tablet See Rx Instructions .Route 0 09/27/24 .COMPLEX #90 tabs budesonide-formoterol HFA 160 See Rx Instructions .Rou te 11/22/24 mcg-4.5 mcg/actuation aerosol .COMPLEX #10.2 grams inhaler (Symbicort) insulin aspart U-100 100 unit/mL See Rx Instructions . Route 12/02/24 (3 mL) subcutaneous pen (Novolog .COMPLEX #27 mL FlexPen U-100 Insulin aspart) insulin glargine 100 unit/mL (3 See Rx Instructions .R oute 12/02/24 mL) subcutaneous pen (Lantus .COMPLEX #45 mL Solostar U-100 Insulin) metoprolol succinate 25 mg 25 mg PO DAILY #90 tabs 05/02 tablet,extended release 24 hr venlafaxine 150 mg See Rx Instructions .Route 0 12/22/24 capsule,extended release 24 hr .COMPLEX #30 caps sumatriptan succinate 25 mg tablet See Rx Instructions .Route 12/24/24 (Imitrex) .COMPLEX PRN Migraine Headac he #30 tabs 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 sensor (Dexcom G7 #9 ea 01/27/25 Sensor device) omeprazole 40 mg capsule,delayed 40 mg PO BID PRN acid reflux #180 02/09/25 release caps isosorbide mononitrate 30 mg 30 mg PO BID #180 tabs tablet,extended release 24 hr furosemide 40 mg tablet 40 mg PO DAILY #90 ea potassium chloride 20 mEq See Rx Instructions .Route 0 03/21/25 tablet,extended release .COMPLEX #90 tabs empagliflozin 25 mg tablet See Rx Instructions .Route 03/22/25 (Jardiance) .COMPLEX #90 tabs tirzepatide 10 mg/0.5 mL 10 mg (0.5 mL) SUBCUT Q7D 1 month 03/28/25 subcutaneous pen injector #2.5 mL (Mounshellro) Allergies Allergy/AdvReac Type Severity Reaction Status Date / Time atorvastatin Allergy Severe transaminit Verified 03/29/25 18:39 is ibuprofen Allergy Mild ALGY-Swell Verified 03/29/25 18:39 Lip/Tongue/Throat acetaminophen (From Tylenol) Allergy liver Verified 03/29/25 18:39 reaction diclofenac Allergy ADR-Vomitin Verified 03/29/25 18:39 g ketorolac (From Toradol) Allergy sick Verified 03/29/25 18:39 Review of Systems 2 Const: Denies: fever(s) Card: Denies: palpitations Resp: Denies: dyspnea or productive cough GI: Denies: abdominal pain, nausea or vomiting PFSH ED 2 PFSH: Medical History (Updated 03/29/25 @ 20:56 by Brooks Mar MD) Hyperlipidemia associated with type 2 diabetes mellitus HTN (hypertension) with goal to be determined Psychiatric care Chronic anemia Migraine JESSE (iron deficiency anemia) Tobacco use disorder DHEERAJ (obstructive sleep apnea) Atypical chest pain Type 2 diabetes mellitus, with long-term current use of insulin Dyslipidemia residential (current) use of opiate analgesic Pain management contract signed Amenorrhea Asthma Spinal stenosis, thoracic region Morbid obesity with BMI of 60.0-69.9, adult Muscle spasms of both lower extremities Bilateral leg edema Bilateral chronic knee pain GERD (gastroesophageal reflux disease) Surgical History History of cholecystectomy Family History Father CAD (coronary artery disease) Diabetes Hypertension Seizures Bleeding disorder Hyperlipidemia Lung disease Psychiatric illness Stroke Family/Other Cancer Clotting disorder Hyperlipidemia Lung disease Psychiatric illness Stroke Mother Diabetes Hypertension Hyperlipidemia Lung disease Other Chronic kidney disease (CKD) Denies family history of Dementia Anesthesia complication Social History Smoking and tobacco/nicotine status: current every day tobacco/nicotine user cigarettes Packs smoked per day: 2 Years cigarettes smoked: 20 [ Other cigarette details: 2PPD, 30PY onset at 15yo] Second hand smoke exposure: Yes Alcohol intake: former Year of sobriety/quit date alcohol: 2016 Substance/Drug Use: former Date of last use: MJ quit in 2021 with new pain management Caregiver/support person: Yes Household members: spouse and family Marital status: Current occupational status: disabled Current occupation: disabled Sexually active: Yes Do you think of yourself as: Straight/Heterosexual Current gender identity: Female Special lacey needs: No Agree to transfusion: Yes Female Reproductive History: Para: 1 Physical Exam 2 Const: COMMON NORMALS: no acute distress, patient oriented x3, healthy appearing and alert HENMT: COMMON NORMALS: normocephalic and atraumatic HEAD & SCALP: n ormocephalic and atraumatic Eye: COMMON NORMALS: EOMs intact bilaterally Neck/C-Spine: COMMON NORMALS: full ROM and supple Resp: COMMON NORMALS: normal respiratory effort, No retractions and No use of accessory muscles Cardio: COMMON NORMALS: regular rate and regular rhythm RATE: regular rate RHYTHM: regular rhythm GI: COMMON NORMALS: Normal to inspection, nondistended, normoactive bowel sounds present, Soft to palpation and non-tender PALPATION: Yes Soft to palpation Extremity: COMMON NORMALS: normal to inspection and full ROM Neuro: COMMON NORMALS: patient oriented x3 SENSORIUM/ORIENTATION: Yes alert Course 2 Vital Signs: Vital signs: Vital Signs Temperature 98.5 F 03/29/25 18:39 Pulse Rate 82 03/29/25 20:37 Respiratory Rate 18 03/29/25 20:37 Blood Pressure 136/85 03/29/25 20:37 Pulse Oximetry 97 03/29/25 20:37 Oxygen Delivery Me thod Room Air 03/29/25 20:37 MDM - Chest Pain Medical Decision Making On reassessment I talked to the patient about her test results. Her initial troponin is unremarkable. Her white blood cell count was mildly elevated at 14.55. She is asking for something for nausea. Will give her some Compazine. Prior to the second troponin the patient states that her is having a problem at home that she needs to leave. She is requesting to be discharged. Will discharge at this time with precautions return for worsening or changing symptoms. Lab Data 03/29/25 18:42 03/29/25 18:42 Laboratory Results WBC 14.55 10^3/uL (3.29-11.43) H 03/29/25 18:42 RBC 6.02 10^6/uL (3.85-5.65) H 03/29/25 18:42 Hgb 16.00 g/dL (11.27-16.99) 03/29/25 18:42 Hct 49.2 % (36-47) H 03/29/25 18:42 MCV 81.7 fl (85-98) L 03/29/25 18:42 MCH 26.6 pg (27-33) L 03/29/25 18:42 MCHC 32.5 g/dL (30-55) 03/29/25 18:42 RDW 14.4 % (12.1-15.1) 03/29/25 18:42 Plt Count 279 10^3/cmm (157-399) 03/29/25 18:42 MPV 11.0 fL (7.4-10.4) H 03/29/25 18:42 Neut % (Auto) 72.2 % 03/29/25 18:42 Lymph % (Auto) 18.9 % 03/29/25 18:42 Geary % (Auto) 6.9 % 03/29/25 18:42 Eos % (Auto) 1.1 % 03/29/25 18:42 Baso % (Auto) 0.5 % 03/29/25 18:42 Neut # (Auto) 10.51 10^3/uL (1.8-7.7) H 03/29/25 18:42 Lymph # (Auto) 2.8 10^3/uL (0.8-4.8) 03/29/25 18:42 Geary # (Auto) 1.0 10^3/uL (0.2-0.9) H 03/29/25 18:42 Eos # (Auto) 0.2 10^3/uL (0.0-0.8) 03/29/25 18:42 Baso # (Auto) 0.1 10^3/uL (0.0-0.1) 03/29/25 18:42 Nucleated RBC % (auto) 0 % 03/29/25 18:42 Nucleated RBCs # 0.0 /100WBC 03/29/25 18:42 Sodium 139 mmol/L (136-145) 03/29/25 18:42 Potassium 4.0 mmol/L (3.5-5.1) 03/29/25 18:42 Chloride 102 mmol/L (98-107) 03/29/25 18:42 Carbon Dioxide 20 mmol/L (22-29) L 03/29/25 18:42 Anion Gap 21.0 (5-19) H 03/29/25 18:42 BUN 11 mg/dL (6-20) 03/29/25 18:42 Creatinine 0.6 mg/dL (0.5-0.9) 03/29/25 18:42 GFR Calculation 112.5 mL/min (90-130) 03/29/25 18:42 Glucose 165 mg/dL (65-115) H 03/29/25 18:42 Calculated Osmolality 291 mOsm/kg (285-295) 03/29/25 18:42 Calcium 9.1 mg/dL (8.5-10.5) 03/29/25 18:42 Troponin T Baseline < 6 ng/L (0-10) 03/29/25 18:42 No radiology studies performed this visit Discharge Plan Discharge Patient Disposition: Home Clinical Impression: Chest pain Condition: Stable Prescriptions: No Action (DME) Omnipod 5 G6 Pods (Gen 5) Cartridge See Rx Instructions .Route Qty: 5 2RF Rx Instructions: As directed (DME) ASO to the Left Ankle See Rx Instructions .Route .MEDSUPPLY Qty: 1 0RF Rx Instructions: As directed ciclopirox 0.77 % cream 1 applic topical BID 28 Days Qty: 30 0RF Rx Instructions: Apply to hands twice daily for 4 weeks (DME) Diabetic shoes with 3 sets of inserts See Rx Instructions .Route .MEDSUPPLY Qty: 1 0RF Rx Instructions: As directed HOME insulin glargine [Lantus Solostar U-100 Insulin] 100 unit/mL (3 mL) insulin pen See Rx Instructions .ROUTE .COMPLEX Qty: 45 3RF Dose Instruction: inject 50 units (0.5ml) SUBCUTANEOUSLY EVERY DAY Rx Instructions: inject 50 units (0.5ml) SUBCUTANEOUSLY EVERY DAY insulin aspart U-100 [Novolog FlexPen U-100 Insulin] 100 unit/mL (3 mL) insulin pen See Rx Instructions .ROUTE .COMPLEX Qty: 27 3RF Dose Instruction: inject 10 units SUBCUTANEOUSLY THREE TIMES DAILY Rx Instructions: start at 5 units a day then go to 10 units SUBCUTANEOUSLY THREE TIMES DAILY gabapentin 300 mg capsule 300 mg PO TID metoprolol succinate 25 mg tablet extended release 24 hr 25 mg PO DAILY Qty: 90 3RF furosemide 40 mg tablet 40 mg PO DAILY Qty: 90 0RF potassium chloride 20 mEq tablet extended release See Rx Instructions .ROUTE .COMPLEX Qty: 90 1RF Dose Instruction: TAKE 1 TABLET BY MOUTH EVERY DAY Rx Instructions: TAKE 1 TABLET BY MOUTH EVERY DAY (DME) lancets [Accu-Chek Fastclix Lancet Drum] Misc See Rx Instructions .ROUTE .MEDSUPPLY Qty: 100 1RF Rx Instructions: TWICE DAILY clobetasol 0.05 % ointment 1 applic topical BID 14 Days Qty: 60 1RF Rx Instructions: Apply to palm & trunk. Use for no more than 2 weeks per month. Not for use on face/skin folds. (DME) hinged knee brace See Rx Instructions .Route .MEDSUPPLY Qty: 1 0RF Rx Instructions: As directed (DME) 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 meter [Accu-Chek Guide Glucose Meter] [facility] See Rx Instructions .Route Qty: 1 0RF Rx Instructions: As directed (DME) lancets [Accu-Chek Softclix Lancets] [facility] See Rx Instructions .Route Qty: 100 0RF Rx Instructions: As directed (DME) Accu-Chek Guide test strips Strip See Rx Instructions .ROUTE .COMPLEX Qty: 200 0RF Dose Instruction: check UP TO TWICE DAILY Rx Instructions: check UP TO TWICE DAILY (DME) Dexcom G7 Gasoline Power Shovel Operator [facility] See Rx Instructions .Route Qty: 1 0RF Rx Instructions: As directed albuterol sulfate 90 mcg/actuation HFA aerosol inhaler See Rx Instructions .ROUTE .COMPLEX Qty: 8.5 5RF Dose Instruction: inhale TWO puffs BY MOUTH EVERY 6 HOURS as needed for SHORTNESS OF BREATH or wheezing Rx Instructions: inhale TWO puffs BY MOUTH EVERY 6 HOURS as needed for SHORTNESS OF BREATH or wheezing oxycodone 5 mg tablet 5 mg PO Q6H PRN (Reason: pain postop) 7 Days Qty: 28 0RF (DME) pen needle, diabetic [BD Ultra-Fine Micro Pen Needle] 32 gauge x 1/4 needle See Rx Instructions .ROUTE .COMPLEX Qty: 300 0RF Dose Instruction: USE THREE TIMES DAILY Rx Instructions: USE THREE TIMES DAILY montelukast 10 mg tablet See Rx Instructions .ROUTE .COMPLEX Qty: 90 1RF Dose Instruction: TAKE 1 TABLET BY MOUTH EVERY DAY Rx Instructions: TAKE 1 TABLET BY MOUTH EVERY DAY budesonide-formoterol [Symbicort] 160-4.5 mcg/actuation HFA aerosol inhaler See Rx Instructions .ROUTE .COMPLEX Qty: 10.2 2RF Dose Instruction: inhale TWO puffs BY MOUTH TWICE DAILY FOR copd Rx Instructions: inhale TWO puffs BY MOUTH TWICE DAILY FOR copd venlafaxine 150 mg capsule,extended release 24hr See Rx Instructions .ROUTE .COMPLEX Qty: 30 2RF Dose Instruction: TAKE ONE CAPSULE BY MOUTH EVERY DAY Rx Instructions: TAKE ONE CAPSULE BY MOUTH EVERY DAY Imitrex 25 mg tablet See Rx Instructions .ROUTE .COMPLEX PRN (Reason: Migraine Headache) Qty: 30 1RF Rx Instructions: TAKE 1 TABLET BY MOUTH EVERY 2 HOURS NEEDED FOR MIGRAINE HEADACHE. MAX OF FOUR TABLETS PER 24 HOURS (DME) Dexcom G7 Sensor Device See Rx Instructions .Route Qty: 9 3RF Rx Instructions: As directed omeprazole 40 mg capsule,delayed release(DR/EC) 40 mg PO BID PRN (Reason: acid reflux) Qty: 180 0RF isosorbide mononitrate 30 mg tablet extended release 24 hr 30 mg PO BID Qty: 180 3RF Jardiance 25 mg tablet See Rx Instructions .ROUTE .COMPLEX Qty: 90 0RF Dose Instruction: TAKE 1 TABLET BY MOUTH DAILY FOR SIX weeks Rx Instructions: TAKE 1 TABLET BY MOUTH DAILY Mounjaro 10 mg/0.5 mL pen injector 10 mg SUBCUT Q7D 30 Days Qty: 2.5 0RF Discharge Orders: Discharge ED (Routine); Ordered 03/29/25 Ordered By: Brooks Mar Referrals: Martínez Lovelace MD [Primary Care Provider, Family Practice] Patient Instructions: Chest Pain (ED), Patient Portal & Tray Instructions Print Language: Guyanese Coding Level of Care Code ED Train Dispatcher for Leonela Escobedo
[2025-03-29 18:56] LABS: Hematocrit 49.2 % (36-47); Hemoglobin 16.00 g/dL (11.27-16.99); Mean Corpuscular HGB Conc 32.5 g/dL (30-55); Mean Corpuscular Hemoglobin 26.6 pg (27-33); Mean Corpuscular Volume 81.7 fl (85-98); Nucleated Red Blood Cells % 0 %; Platelet Count 279 10^3/cmm (157-399); Red Blood Count 6.02 10^6/uL (3.85-5.65); White Blood Count 14.55 10^3/uL (3.29-11.43)
[2025-03-29 19:38] LABS: Troponin(5th) Baseline < 6 ng/L (0-10)
[2025-03-29 19:49] LABS: Blood Urea Nitrogen 11 mg/dL (6-20); Calcium 9.1 mg/dL (8.5-10.5); Carbon Dioxide 20 mmol/L (22-29); Chloride 102 mmol/L (98-107); Creatinine Clr Calc Pharmacy 166.6741; Glucose 165 mg/dL (65-115); Osmolality Calculated 291 mOsm/kg (285-295); Sodium 139 mmol/L (136-145)
[2025-03-29 19:50] LABS: Anion Gap 21.0 (5-19); Potassium 4.0 mmol/L (3.5-5.1)
[2025-03-29 20:37] VITALS: BP 136/85; PULSE 82; RESP 18; O2SAT 97
--- NOTE | 2025-03-29 21:11 | PC.NURSE ---
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 pt states feelinga nxious d/t my at home is making me anxious and hes getting worried. pt asking to be discharged. provider notified of development and aware. pt in no obivous distress .
[2025-03-29 21:16] LABS: Troponin 5 2HR < 6.0 ng/L (0-10); Troponin 5 2HR Delta 0 ABS# (0-10)
== END 2025-03-29 21:13 | disposition home or self-care (01) ==
PROVIDERS: Emergency Provider Emergency Medicine; PCP Family Medicine
DX: R07.9 Chest pain, unspecified (principal); Z79.4 Long term (current) use of insulin; F17.210 Nicotine dependence, cigarettes, uncomplicated; E78.5 Hyperlipidemia, unspecified; E11.9 Type 2 diabetes mellitus without complications; I10 Essential (primary) hypertension
CPT/HCPCS: 80048; 84484; 85025; 93005; 96361; 96374; 99284; J0780; J7040

== ENCOUNTER 2025-03-30 20:00 | Outpatient (CLI) | payer MEDICARE, MEDICAID, SELFPAY | END 2025-03-30 20:01 | disposition home or self-care (01) | LOC: SLEEP 20:36 | PROVIDERS: PCP Family Medicine; Referring Provider Nurse Practitioner Family; Visit Provider Internal Medicine Pulmonary Disease | DX: G47.33 Obstructive sleep apnea (adult) (pediatric) (principal) | CPT/HCPCS: 95810 ==

== ENCOUNTER 2025-04-14 06:17 | Oncology outpatient (recurring) (ONCR) | payer MEDICARE, MEDICAID, SELFPAY ==
--- NOTE | 2025-04-14 06:30 | USCV_ITS ---
Lorraine Curry Age: 39 Gender: F : 1985 Exam Date: 04/14/2025 06:31 Ordering Phys: Sissy Patino NP Technologist: WILLIAN Exam Location: [facility] [place] Indication: Dyspnea on exertion BP: 127 / 70 HR: 78 Rhythm: Sinus Technical Quality: Adequate MEASUREMENTS (Male / Female) Normal Values 2D ECHO LV Diastolic Diameter PLAX 4.1 cm 4.2 - 5.9 / 3.9 - 5.3 cm IVS Diastolic Thickness 1.2 cm 0.6 - 1.0 / 0.6 - 0.9 cm IVS Systolic Thickness 1.7 cm LVPW Diastolic Thickness 1.6 cm 0.6 - 1.0 / 0.6 - 0.9 cm LVPW Systolic Thickness 1.7 cm LVOT Diameter 2.3 cm LV Ejection Fraction 2D Teich 58.2 % LV Ejection Fraction MOD 4C 62.3 % LV Ejection Fraction MOD 2C 59.7 % LV Ejection Fraction 2C AL 59.5 % LA Diameter 3.6 cm RA Systolic Volume 4C AL 39.6 ml RA Systolic Volume 4C MOD 39.6 ml Aorta at Sinotubular Diameter 3.2 cm M-MODE LA Ao Ratio MM 1.6 AV Cusp Separation MM 2.0 cm DOPPLER AV Peak Velocity 143.0 cm/s LVOT Peak Velocity 103.0 cm/s AV Area Cont Eq vti 2.6 cm squared AV Area Cont Eq pk 2.9 cm squared MV Peak Velocity 128.0 cm/s MV Area PHT 4.3 cm squared Mitral E to A Ratio 1.1 TV Peak Velocity 200.5 cm/s TR Peak Velocity 228.0 cm/s TR Peak Gradient 20.8 mmHg PV Peak Velocity 91.0 cm/s FINDINGS Left Ventricle Normal left ventricular size and systolic function, EF 60%. No regional wall motion abnormalities. Right Ventricle Normal right ventricular size and systolic function. Right Atrium The right atrium is normal in size. Left Atrium The left atrium is normal in size. Mitral Valve Trace mitral valve regurgitation. Aortic Valve No valvular abnormalities Tricuspid Valve Trace tricuspid valve regurgitation. Pulmonic Valve Pulmonic valve not well visualized. Pericardium Normal pericardium without effusion. Aorta Normal ascending aorta dimension. IVC Normal inferior vena cava. CONCLUSIONS Normal left ventricular size and systolic function, EF 60%. No regional wall motion abnormalities. Normal cardiac chamber sizes. Trace of mitral and tricuspid regurgitation There is no pericardial effusion. There are no intracardiac masses. No similar previous studies are available for comparison Dr Velasquez Desai MD [facility] (Electronically Signed) Final Date: 17 April 2025 20:52 S
[2025-04-14 07:53] LABS: Hematocrit 49.0 % (36-47); Hemoglobin 16.10 g/dL (11.27-16.99); Mean Corpuscular HGB Conc 32.9 g/dL (30-55); Mean Corpuscular Hemoglobin 27.5 pg (27-33); Mean Corpuscular Volume 83.6 fl (85-98); Nucleated Red Blood Cells % 0 %; Platelet Count 335 10^3/cmm (157-399); Red Blood Count 5.86 10^6/uL (3.85-5.65); White Blood Count 13.69 10^3/uL (3.29-11.43)
[2025-04-14 10:14] VITALS: BP 128/85; PULSE 75
== END 2025-05-08 23:59 | disposition home or self-care (01) ==
LOC: ONCMED 06:18
PROVIDERS: PCP Family Medicine; Visit Provider Nurse Practitioner Family
DX: D75.1 Secondary polycythemia (principal); R07.9 Chest pain, unspecified
CPT/HCPCS: 85025; 93306; 99195

== ENCOUNTER 2025-04-29 09:26 | Emergency (ER) | payer MEDICARE, MEDICAID, SELFPAY ==
--- OUTSIDE RECORDS SUMMARY | 2003-09-07 19:00 | XMS_ITS | Continuity of Care Document ---
Author Name [facility] Address [address] [place] [address] Organization [facility] Care Team Providers Care Teacher Of Gifted Students Name Role Phone [facility] Unavailable Problems Problem Status Onset Date Problem Type Date of Resolution Comme nts Source Tobacco user (finding) Active Condition Type II diabetes mellitus uncontrolled (finding) Active Condition Pain in right leg (finding) Active Condition Encounters Location Location Details Encounter Type Encounter Number Reason For Visit Attending Provider ADM Date DC Date Status Source LRLE LRLE Outpatient [id number] 3 month follow- up Aleksander Fay [facility]
[2025-04-29] VITALS (10 sets, daily range): BP systolic 131–146; BP diastolic 61–108; PULSE 87–100; RESP 15–29; TEMP 37.1; O2SAT 95–99; BMI 51.3
--- NOTE | 2025-04-29 09:31 | CT_ITS ---
WS: [id number] CT CERVICAL SPINE HISTORY: trauma TECHNIQUE: Contiguous 2.0 mm axial imaging performed through the entire cervical spine. Sagittal and coronal reformats also performed. All CT scans at [facility] use at least one of these dose optimization techniques: automated exposure control; mA and/or kV adjustment per patient size (includes targeted exams where dose is matched to clinical indication); or iterative reconstruction. DLP: 650.54 mGy.cm COMPARISON: 02/22/2024 Straightening of the normal cervical lordosis. Asymmetric disc space narrowing at C5-6. Facet joints are normally aligned. Craniocervical junction is normal. Lateral masses are aligned in the odontoid is intact. Congenital, unfused ring of C1. C2-C3: Normal. C3-C4: Normal. C4-C5: Normal. C5-C6: Normal. C6-C7: Normal. C7-T1: Normal. Soft tissues are normal. Lung apices are clear. CT/CT cervical spin wo con* [id number] IMPRESSION: 1. No acute cervical spine fracture. 2. Slight reversal of the normal cervical lordosis. No interval change since .
--- NOTE | 2025-04-29 09:32 | XRR_ITS ---
PROCEDURE INFORMATION: Exam: XR Chest Exam date and time: 04/29/2025 9:42 AM Age: 39 years old Clinical indication: Cough and dyspnea; Additional info: Dyspnea/cough TECHNIQUE: Imaging protocol: Radiologic exam of the chest. Views: 1 view. COMPARISON: CR XR chest 1V portable [id number] 06/23/2022 10:25 PM FINDINGS: Lungs: Slightly diminished lung volumes. No consolidation. Pleural spaces: No pleural effusion or pneumothorax. Heart/Mediastinum: No cardiomegaly. Bones/joints: No acute osseous injury. XR/XR chest 1V portable [id number] IMPRESSION: No acute pulmonary process. Slightly diminished lung volumes.
--- NOTE | 2025-04-29 09:33 | ECG_ITS ---
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 Measurements Intervals [place] Rate: 88 P: 54 PA: 176 QRS: 30 QRSD: 91 T: 24 QT: 384 QTc: 465 Interpretive Statements SINUS RHYTHM POSSIBLE LEFT ATRIAL ENLARGEMENT [-0.1mV P-WAVE IN V1/V2] Compared to ECG 03/29/2025 18:42:09 No significant changes Electronically Signed On 04-29-2025 14:05:48 CDT by Velasquez Desai M.D. [email or web address]
--- OUTSIDE RECORDS SUMMARY | 2025-04-29 09:37 | XMS_ITS | Patient Health Record ---
Author Organization [facility] Address [address] [place] [address] Care Team Providers Care Guest Experience Representative Name Role Phone Martínez Lovelace MD Primary Care Provider Unavailab Carmella Paula Unavailable [phone] Migration, Provider Unavailable Unavailable Martínez Venegas Unavailable [phone] Allergies Allergen (clinical drug ingredient) Drug/Non Drug Allergy documented on EMR Reaction Allergy Type Onset Date Status ibuprofen Ibuprofen Unknown Drug Allergy Active Diclofenac Unknown Drug Allergy Active ketorolac Ketorolac Unknown Drug Allergy Active Results Component Value Reference Range Flag Notes Urine Drug Screen (cup read) - 52390 Reviewed date:03/17/2025 03:38:11 PM Interpretation: Performing Lab: Notes/Report: OXY + Urine Drug Screen (cup read) - 89348 Reviewed date:01/20/2025 02:13:11 PM Interpretation:Negative Performing Lab: Notes/Report: Negative Urine Drug Screen (cup read) - 11105 Reviewed date:11/18/2024 01:06:05 PM Interpretation:Negative Performing Lab: Notes/Report: Negative zzzUrine Drug Screen (confir mation by instrument) - 53635 Reviewed date:08/18/2024 12:41:36 PM Interpretation: Performing Lab: Notes/Report: Urine Confirmation Panel (in strument) - 72114 Reviewed date:03/23/2025 03:06:19 PM Interpretation: Performing Lab: [...] the U.S. Food and Drug Administration. Gabapentin >55378 <225 ng/mL > This test was developed [...] the U.S. Food and Drug Administration. Urine Confirmation Panel (in strument) - 23060 Reviewed date:01/24/2025 02:41:05 PM Interpretation: Performing Lab: [...] the U.S. Food and Drug Administration. Urine Confirmation Panel (in strument) - 62417 Reviewed date:11/24/2024 02:49:57 PM Interpretation: Performing Lab: [...] the U.S. Food and Drug Administration. Gabapentin >94742 <225 ng/mL > This test was developed [...] by the U.S. Food and Drug Administration. Tox Results Reviewed date:03/23/2025 03:23:59 PM Interpretation: Performing Lab: Notes/Report: Tox Results Reviewed date:01/25/2025 08:35:38 AM Interpretation: Performing Lab: Notes/Report: Tox Results Reviewed date:11/24/2024 02:49:57 PM Interpretation: Performing Lab: Notes/Report: Reason For Referral No Information Medications Medication SIG (Take, Route, Frequency, Duration) Notes Start Date End Date Status Atenolol *Pick strength-form from [employer] for eRX* Active Wellbutrin SR *Pick strength-form from [employer] for eRX* Active Doxepin *Reorder from [facility] for eRx and Interaction Alerts* Active Metoprolol Tartrate 25 MG Tablet 1 tablet with food Orally once a day 01/20/2025 Active Omeprazole *Pick strength-form from [facility] for eRX* Active [facility]* Active Spironolactone *Pick strength-form from [facility] for eRX* Active hydrOXYzine HCl *Pick strength-form from [facility] for eRX* Active Ferrous Gluconate *Pick strength-form from [facility] for eRX* Active Gabapentin *Pick strength-form from [employer] for eRX* Active oxyCODONE HCl 5 MG Tablet 1 tablet as needed Orally every 6 hrs; Duration: 30 days As needed DO not exceed 3.5 per day Fill on 04-19-25 03/17/2025 05/19/2025 Active Metformin [facility] Interaction Alert[facility]* Active Gabapentin 300 MG Capsule 1 capsule Orally three times a day; Duration: 30 days As needed Fill from previous Rx 03/17/2025 05/17/2025 Active Isosorbide Dinitrate 30 MG Tablet 1 tablet Orally Twice a day 01/20/2025 Active [facility]elukast [facility]* Active [facility]inop[facility] Active Social History Social History [...] Status Risk Notes Problem Morbid obesity (disorder) (561911471) Morbid (severe) obesity due to excess calories (E66.01) 02/27/20 Active confirmed Problem Chronic pain syndrome (454540269) Chronic pain syndrome (G89.4) 02/27/20 Active confirmed Problem Thoracic spondylosis without myelopathy (252187684) Other spondylosis with radiculopathy, thoracic region (M47.24) 02/27/20 Active confirmed Problem Lumbosacral spondylosis without myelopathy (42518234) Other spondylosis with radiculopathy, lumbosacral region (M47.27) 02/27/20 24 Active confirmed Problem Degeneration of lumbar intervertebral disc (37470659) Other intervertebral disc degeneration, lumbar region (M51.36) 02/27/20 24 Active confirmed Problem Abnormal gait (70871386) Unspecified abnormalities of gait and mobility (R26.9) 02/27/20 24 Active confirmed Problem High risk drug monitoring status (407934274) correction (current) use of opiate analgesic (Z79.891) Active confirmed Problem Thoracic radiculopathy (96053372) Thoracic radiculopathy (M54.14) Active confirmed Problem Thoracic spondylosis (270973562) Thoracic spondylosis (M47.814) Active confirmed Problem Lumbosacral radiculopathy (8756755) L-S radiculopathy (M54.17) Active confirmed Problem Lumbosacral spondylosis (427681118) Lumbosacral spondylosis (M47.817) Active confirmed Vital Signs Height-cm 160.02 cm 03/17/2025 Height 63.00 in 03/17/2025 Encounters Encounter Location Date Provider Diagnosis [facility] [address] [address] 07/14/2024 Martínez Venegas [facility] [address] [address] 05/06/2024 Martínez Venegas [facility] [address] [address] 06/10/2024 Carmella Collier [facility] [address] [address] 08/12/2024 Carmella Collier Chronic pain syndrom e G89.4 ; Thoracic radiculopathy M54.14 ; Thoracic spondylosis M47.814 ; Degeneration of intervertebral disc of lumbar region with discogenic back pain M51.360 ; L-S radiculopathy M54.17 ; Arthritis of lumbosacral spine M47.817 and correction (current) use of opiate analgesic Z79.891 [facility] [place] [address] [place] [address] 09/15/2024 Martínez Venegas Chronic pain syndrom e G89.4 ; Thoracic radiculopathy M54.14 ; Thoracic spondylosis M47.814 ; Degeneration of intervertebral disc of lumbar region with discogenic back pain M51.360 ; L-S radiculopathy M54.17 ; Lumbosacral spondylosis M47.817 ; Unspecified abnormalities of gait and mobility R26.9 and de alcholizer (current) use of opiate analgesic Z79.891 [facility] [place] [address] [place] [address] 11/18/2024 Carmella Collier Chronic pain syndrom e G89.4 ; Thoracic radiculopathy M54.14 ; Thoracic spondylosis M47.814 ; Degeneration of intervertebral disc of lumbar region with discogenic back pain M51.360 ; L-S radiculopathy M54.17 ; Lumbosacral spondylosis M47.817 ; Unspecified abnormalities of gait and mobility R26.9 and correction (current) use of opiate analgesic Z79.891 [facility] [address] [place] [address] 01/20/2025 Carmella Collier Chronic pain syndrom e G89.4 ; Thoracic radiculopathy M54.14 ; Degeneration of intervertebral disc of lumbar region with discogenic back pain M51.360 ; L-S radiculopathy M54.17 ; Unspecified abnormalities of gait and mobility R26.9 ; correction (current) use of opiate analgesic Z79.891 ; Lumbosacral spondylosis M47.817 and Thoracic spondylosis M47.814 [facility] [place] [address] [place] [address] 03/17/2025 Carmella Collier Chronic pain syndrom e G89.4 ; Thoracic radiculopathy M54.14 ; Degeneration of intervertebral disc of lumbar region with discogenic back pain M51.360 ; L-S radiculopathy M54.17 ; Unspecified abnormalities of gait and mobility R26.9 ; Thoracic spondylosis M47.814 ; Analgesic use Z79.899 and Lumbosacral spondylosis M47.817 [facility] 0 07/03/2024 Provider Migration [facility] 0 07/04/2024 Provider Migration [facility] [address] [place] [address] 08/12/2024 Martínez Friedmanolga [facility] [place] [address] [place] [facility] [place] [address] 08/16/2024 Martínez Venegas [facility] [place] [address] [place] [place] [address] 11/18/2024 Martínez Venegas Thoracic radiculopathy M54.14 [facility] [place] [address] [place] [address] 12/14/2024 Carmella Collier [facility] [place] [address] [place] [address] 01/20/2025 Martínez Idaliaolga [facility] [place] [address] [place] [address] 02/08/2025 Martínez [facility] [place] [address] [place] [address] 03/17/2025 Martínez Venegas Chronic pain syndrom e G89.4 Assessments Encounter Date Diagnosis (ICD Code) Assessment Notes Treatment Notes Treatment Clinical Notes Section Notes 08/12/2024 Chronic pain syndrome (ICD-10 - G89.4) 08/12/2024 Thoracic radiculopathy (ICD-10 - M54.14) 09/15/2024 Chronic [...] months and follow up with her thereafter. 09/15/2024 Thoracic radiculopathy (ICD-10 - M54.14) 11/18/2024 Thoracic radiculopathy (ICD-10 - M54.14) 11/18/2024 [...] effects are noted. Last UDS and [place] MECHANICAL PRESS OPERATOR reviewed today. Patient is advised that best [...] effects are noted. Last UDS and [place] MECHANICAL PRESS OPERATOR reviewed today. Patient is advised that best [...] M54.17) 03/17/2025 L-S radiculopathy (ICD-10 - M54.17) 03/17/2025 Unspecified abnormalities of gait and mobility (ICD-10 - R26.9) 01/20/2025 Unspecified abnormalities of gait and mobility (ICD-10 - R26.9) 11/18/2024 Degeneration of intervertebral disc of lumbar region with discogenic back pain (ICD-10 - M51.360) 09/15/2024 L-S radiculopathy (ICD-10 - M54.17) 08/12/2024 L-S radiculopathy (ICD-10 - M54.17) 08/12/2024 Arthritis of lumbosacral spine (ICD-10 - M47.817) 09/15/2024 Lumbosacral spondylosis (ICD-10 - M47.817) 11/18/2024 L-S radiculopathy (ICD-10 - M54.17) 01/20/2025 correction (current) use of opiate analgesic (ICD-10 - Z79.891) 03/17/2025 Thoracic spondylosis (ICD-10 - M47.814) 03/17/2025 Analgesic use (ICD-10 - Z79.899) 01/20/2025 Lumbosacral spondylosis (ICD-10 - M47.817) 11/18/2024 Lumbosacral spondylosis (ICD-10 - M47.817) 09/15/2024 Unspecified abnormalities of gait and mobility (ICD-10 - R26.9) 08/12/2024 de alcholizer (current) use of opiate analgesic (ICD-10 - Z79.891) 09/15/2024 de alcholizer (current) use of opiate analgesic (ICD-10 - Z79.891) 11/18/2024 Unspecified abnormalities of gait and mobility (ICD-10 - R26.9) 01/20/2025 Thoracic spondylosis (ICD-10 - M47.814) 03/17/2025 Lumbosacral spondylosis (ICD-10 - M47.817) 11/18/2024 correction (current) use of opiate analgesic (ICD-10 - [...] abide by our urine testing policy. 08/12/2024 Ilda Fam had a nice discussion with the patient [...] for treatment effectiveness and compliance. 09/15/2024 Other I, Francisco Alexandre, am scribing for Martínez Venegas. I, Martínez Venegas, personally performed the services described in this documentation, as scribed by Francisco Alexandre, and it is both accurate and complete. Plan Of Treatment Next Appt Details Provider Name:Martínez Venegas, 05/18/2025 09:20:00 AM, [address] [place], [address], Insurance Providers Payer Name Payer Address Payer Phone Subscriber Number Group Number Insured Name Patient Relationship to Insured Coverage Start Date Coverage End Date [employer] Medicare Replacement [address] [address] [place] [address] [id number] Lorraine Curry Self - patient is the insured 1 [place] [address] [place] [address] [id number] Lorraine Curry Self - patient is the insured 2 [place] [address] [address] [place] [address] [id number] Lorraine Curry Self - patient is the insured Medical (General) History Surgical History Surgery Date(Month/Year) Cholecystectomy Hospitalization History Reason Date(Month/Year) See Surgical Hx
[2025-04-29 09:40] LABS: Hematocrit 44.7 % (36-47); Hemoglobin 14.80 g/dL (11.27-16.99); Mean Corpuscular HGB Conc 33.1 g/dL (30-55); Mean Corpuscular Hemoglobin 26.9 pg (27-33); Mean Corpuscular Volume 81.1 fl (85-98); Nucleated Red Blood Cells % 0 %; Platelet Count 308 10^3/cmm (157-399); Red Blood Count 5.51 10^6/uL (3.85-5.65); White Blood Count 12.30 10^3/uL (3.29-11.43)
--- NOTE | 2025-04-29 09:47 | ED_ITS ---
HPI - Chest Pain 2 General: Chief Complaint: Chest Pain Stated Complaint: CP, FALL- NECK PAIN Time Seen by Provider: 04/29/25 09:29 History of Present Illness: 39-year-old female presents emergency ro om with complaint of intermittent episodes of chest pain shortness of breath. She has a history of atrial fibrillation yesterday she had a sharp episode of chest pain the point where she fell down and she hit a wall as she was falling her neck hurts as well as the left side of her abdomen. There was no loss conscious. She is not on any anticoagulants. Associated symptoms: Deny abdominal pain, dyspnea or fever(s) Related Data Home Medications ?Medication ?Instructions ?Recorded ?Confirmed gabapentin 300 mg capsule 300 mg PO TID 12/14/2403/21 Previous Rx's ?Medication ?Instructions ?Recorded lancets (Accu-Chek Fastclix Lancet #100 ea 04/18/20 Drum) ASO to the Left Ankle #1 ea 05/16/22 ciclopirox 0.77 % topical cream 1 applic topical BID 4 weeks #30 07/15/22 grams clobetasol 0.05 % topical ointment 1 applic topical BI D 2 weeks #60 09/11/22 grams hinged knee brace #1 ea 12/26/22 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 meter (Accu-Chek #1 ea 01/02/23 Guide Glucose Meter) lancets (Accu-Chek Softclix #100 ea 01/02/23 Lancets) blood sugar diagnostic (Accu-Chek #200 strips 04/04/23 Guide test strips) insulin pump cart,automated,BT #5 ea 04/07/23 (Omnipod 5 G6 Pods (Gen 5) subcutaneous cartridge) 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,band instrument maker,cont #1 ea 04/28/23 (Dexcom G7 Court Recording Monitor) albuterol sulfate 90 mcg/actuation See Rx Instructions .Route 02/04/24 aerosol inhaler .COMPLEX #8.5 grams oxycodone 5 mg tablet 5 mg PO Q6H PRN pain postop 7 days 02/20/24 #28 tabs pen needle, diabetic 32 gauge x #300 ea 03/18/24 1/4 (BD Ultra-Fine Micro Pen Needle) Diabetic shoes with 3 sets of #1 ea 07/27/24 inserts montelukast 10 mg tablet See Rx Instructions .Route 0 1/20/25 .COMPLEX #90 tabs budesonide-formoterol HFA 160 See Rx Instructions .Rou te 11/22/24 mcg-4.5 mcg/actuation aerosol .COMPLEX #10.2 grams inhaler (Symbicort) insulin aspart U-100 100 unit/mL See Rx Instructions . Route 12/02/24 (3 mL) subcutaneous pen (Novolog .COMPLEX #27 mL FlexPen U-100 Insulin aspart) insulin glargine 100 unit/mL (3 See Rx Instructions .R oute 12/02/24 mL) subcutaneous pen (Lantus .COMPLEX #45 mL Solostar U-100 Insulin) metoprolol succinate 25 mg 25 mg PO DAILY #90 tabs 05/02 tablet,extended release 24 hr venlafaxine 150 mg See Rx Instructions .Route 0 12/22/24 capsule,extended release 24 hr .COMPLEX #30 caps sumatriptan succinate 25 mg tablet See Rx Instructions .Route 12/24/24 (Imitrex) .COMPLEX PRN Migraine Headac he #30 tabs 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 sensor (Dexcom G7 #9 ea 01/27/25 Sensor device) omeprazole 40 mg capsule,delayed 40 mg PO BID PRN acid reflux #180 02/09/25 release caps isosorbide mononitrate 30 mg 30 mg PO BID #180 tabs tablet,extended release 24 hr furosemide 40 mg tablet 40 mg PO DAILY #90 ea empagliflozin 25 mg tablet See Rx Instructions .Route 03/22/25 (Jardiance) .COMPLEX #90 tabs tirzepatide 10 mg/0.5 mL See Rx Instructions .Route 0 04/25/25 subcutaneous pen injector .COMPLEX #2.5 mL (Mounjaro) methylprednisolone 4 mg tablets in See Rx Instructions PO .COMPLEX 04/29/25 a dose pack (Medrol (Ankush)) #21 ea potassium chloride 20 mEq See Rx Instructions .Route 0 04/29/25 tablet,extended release .COMPLEX #90 tabs tizanidine 4 mg tablet 4 mg PO Q6H PRN muscle spast icity 04/29/25 #20 tabs Allergies Allergy/AdvReac Type Severity Reaction Status Date / Time atorvastatin Allergy Severe transaminit Verified 04/28/25 07:43 is ibuprofen Allergy Mild ALGY-Swell Verified 04/28/25 07:43 Lip/Tongue/Throat acetaminophen (From Tylenol) Allergy liver Verified 04/28/25 07:43 reaction diclofenac Allergy ADR-Vomitin Verified 04/28/25 07:43 g ketorolac (From Toradol) Allergy sick Verified 04/28/25 07:43 Review of Systems 2 Const: Denies: fever(s) or chills Card: Denies: chest pain Resp: Denies: dyspnea GI: Denies: abdominal pain : Denies: dysuria, urinary frequency or urinary urgency Musc: Denies: neck pain or back pain Skin/Breast: Denies: rash PFSH ED 2 PFSH: Medical History Hyperlipidemia associated with type 2 diabetes mellitus HTN (hypertension) with goal to be determined Chronic anemia Migraine JESSE (iron deficiency anemia) Tobacco use disorder DHEERAJ (obstructive sleep apnea) Atypical chest pain Type 2 diabetes mellitus, with long-term current use of insulin Dyslipidemia 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 Pain management contract signed Amenorrhea Asthma Spinal stenosis, thoracic region Morbid obesity with BMI of 60.0-69.9, adult Muscle spasms of both lower extremities Bilateral leg edema Bilateral chronic knee pain GERD (gastroesophageal reflux disease) Surgical History History of cholecystectomy Family History Father CAD (coronary artery disease) Diabetes Hypertension Seizures Bleeding disorder Hyperlipidemia Lung disease Psychiatric illness Stroke Family/Other Cancer Clotting disorder Hyperlipidemia Lung disease Psychiatric illness Stroke Mother Diabetes Hypertension Hyperlipidemia Lung disease Other Chronic kidney disease (CKD) Denies family history of Dementia Anesthesia complication Social History Smoking and tobacco/nicotine status: current every day tobacco/nicotine user cigarettes Packs smoked per day: 2 Years cigarettes smoked: 20 [ Other cigarette details: 2PPD, 30PY onset at 15yo] Second hand smoke exposure: Yes Alcohol intake: former Year of sobriety/quit date alcohol: 2016 Substance/Drug Use: former Date of last use: MJ quit in 2021 with new pain management Caregiver/support person: Yes Household members: spouse and family Marital status: Current occupational status: disabled Current occupation: disabled Sexually active: Yes Do you think of yourself as: Straight/Heterosexual Current gender identity: Female Special lacey needs: No Agree to transfusion: Yes Female Reproductive History: Para: 1 Physical Exam 2 Const: COMMON NORMALS: no acute distress GENERAL APPEARANCE: cooperative and comfortable ORIENTATION/CONSCIOUSNESS: Yes awake, Yes oriented to person, Yes oriented to place and Yes oriented to time HENMT: COMMON NORMALS: normocephalic, atraumatic and hearing grossly normal bilaterally HEAD & SCALP: normocephalic and atraumatic Resp: COMMON NORMALS: normal respiratory effort, No retractions, No use of accessory muscles and clear to auscultation bilaterally AUSCULTATION: clear to auscultation bilaterally Cardio: COMMON NORMALS: regular rate, regular rhythm and No murmurs present (Cardio) RATE: regular rate RHYTHM: regular rhythm GI: COMMON NORMALS: Soft to palpation and No hepatosplenomegaly present A USCULTATION: Yes normoactive bowel sounds PALPATION: Yes Soft to palpation, Yes Tenderness to palpation present (GI) (Mild left sided abdominal tenderness), No Guarding due to palpation present (GI) and Yes No hepatosplenomegaly present Extremity: COMMON NORMALS: normal to inspection, capillary refill normal, no clubbing, cyanosis or edema, no calf tenderness and no pedal edema Neuro: SENSORIUM/ORIENTATION: Yes oriented to person, Yes oriented to place and Yes oriented to time Skin: COMMON NORMALS: no rashes or lesions noted GENERAL SKIN EXAM: no rashes or lesions noted Course 2 Vital Signs: Vital signs: Vital Signs Temperature 98.8 F 04/29/25 09:26 Pulse Rate 90 04/29/25 13:02 Respiratory Rate 16 04/29/25 12:46 Blood Pressure 135/99 04/29/25 13:02 Pulse Oximetry 96 04/29/25 13:02 Oxygen Delivery Me thod Room Air 04/29/25 09:26 MDM - Chest Pain Medical Decision Making Labs and imaging unremarkable EKG there is mention of the computer read with Q waves these were present previously cardiac enzymes are negative. Patient is not having any further symptoms. C-spine does not show any acute abnormalities on CT. Will discharge patient home can use methylprednisolone tizanidine as needed follow-up with primary care. Lab Data 04/29/25 09:07 04/29/25 09:07 Radiology Impressions Cervical Spine CT 04/29/25 09:31 IMPRESSION: 1. No acute cervical spine fracture. 2. Slight reversal of the normal cervical lordosis. No interval change since 02/22/2024. Chest X-Ray 04/29/25 09:32 IMPRESSION: No acute pulmonary process. Slightly diminished lung volumes. Laboratory Results WBC 12.30 10^3/uL (3.29-11.43) H 04/29/25 09:07 RBC 5.51 10^6/uL (3.85-5.65) 04/29/25 09:07 Hgb 14.80 g/dL (11.27-16.99) 04/29/25 09:07 Hct 44.7 % (36-47) 04/29/25 09:07 MCV 81.1 fl (85-98) L 04/29/25 09:07 MCH 26.9 pg (27-33) L 04/29/25 09:07 MCHC 33.1 g/dL (30-55) 04/29/25 09:07 RDW 14.5 % (12.1-15.1) 04/29/25 09:07 Plt Count 308 10^3/cmm (157-399) 04/29/25 09:07 MPV 10.9 fL (7.4-10.4) H 04/29/25 09:07 Neut % (Auto) 74.1 % 04/29/25 09:07 Lymph % (Auto) 16.7 % 04/29/25 09:07 [place] % (Auto) 7.2 % 04/29/25 09:07 Eos % (Auto) 1.1 % 04/29/25 09:07 Baso % (Auto) 0.4 % 04/29/25 09:07 Neut # (Auto) 9.12 10^3/uL (1.8-7.7) H 04/29/25 09:07 Lymph # (Auto) 2.1 10^3/uL (0.8-4.8) 04/29/25 09:07 [place] # (Auto) 0.9 10^3/uL (0.2-0.9) 04/29/25 09:07 Eos # (Auto) 0.1 10^3/uL (0.0-0.8) 04/29/25 09:07 Baso # (Auto) 0.1 10^3/uL (0.0-0.1) 04/29/25 09:07 Nucleated RBC % (auto) 0 % 04/29/25 09:07 Nucleated RBCs # 0.0 /100WBC 04/29/25 09:07 Sodium 138 mmol/L (136-145) 04/29/25 09:07 Potassium 3.9 mmol/L (3.5-5.1) 04/29/25 09:07 Chloride 104 mmol/L (98-107) 04/29/25 09:07 Carbon Dioxide 21 mmol/L (22-29) L 04/29/25 09:07 Anion Gap 16.9 (5-19) 04/29/25 09:07 BUN 10 mg/dL (6-20) 04/29/25 09:07 Creatinine 0.5 mg/dL (0.5-0.9) 04/29/25 09:07 GFR Calculation 138.8 mL/min (90-130) H 04/29/25 09:07 Glucose 196 mg/dL (65-115) H 04/29/25 09:07 Calculated Osmolality 290 mOsm/kg (285-295) 04/29/25 09:07 Calcium 9.2 mg/dL (8.5-10.5) 04/29/25 09:07 Total Bilirubin 0.3 mg/dL (0.15-1.2) 04/29/25 09:07 AST 11 U/L (0-32) 04/29/25 09:07 ALT 15 U/L (0-33) 04/29/25 09:07 Alkaline Phosphatase 111 U/L (35-105) H 04/29/25 09:07 Troponin T Baseline < 6 ng/L (0-10) 04/29/25 09:07 Troponin T 120 Minute < 6.0 ng/L (0-10) 04/29/25 11:00 Delta Troponin T 0 ABS# (0-10) 04/29/25 11:00 Total Protein 7.3 g/dL (6.6-8.7) 04/29/25 09:07 Albumin 3.9 g/dL (3.5-5.2) 04/29/25 09:07 Globulin 3.4 g/dL (1.3-4.6) 04/29/25 09:07 Urine Color Yellow (Yellow) 04/29/25 11:13 Urine Appearance Clear (CLEAR) 04/29/25 11:13 Urine pH 5.0 (5-7) 04/29/25 11:13 Ur Specific [place] 1.033 (1.005-1.030) H 04/29/25 11:13 Urine Protein Negative (Negative) 04/29/25 11:13 Urine Glucose (UA) 3+ (Normal) H 04/29/25 11:13 Urine Ketones Negative (Negative) 04/29/25 11:13 Urine Blood Negative (Negative) 04/29/25 11:13 Urine Nitrate Negative (Negative) 04/29/25 11:13 Urine Bilirubin Negative (Negative) 04/29/25 11:13 Urine Urobilinogen 1.0 mg/dL (Negative) 04/29/25 11:13 Ur Leukocyte Esterase Negative (Negative) 04/29/25 11:13 Urine RBC 3-5 /hpf (0-2) 04/29/25 11:13 Urine WBC 0-5 /hpf (0-5) 04/29/25 11:13 Ur Squamous Epith Cells 0-5 /hpf (0-5) 04/29/25 11:13 Amorphous Sediment Not Reportable 04/29/25 11:13 Urine Bacteria Trace /hpf (NONE) 04/29/25 11:13 Hyaline Casts 0-4 /lpf H 04/29/25 11:13 Urine Yeast 1+ /hpf H 04/29/25 11:13 All radiology interpretation(s) finalized by discharge EKG Data EKG 1: Interpretation: EKG 04/29/2025 9:34 AM sinus rhythm rate of 88 TX interval 176 QTc [address] elevation no T wave inversion compared to EKG 03/29/2025 no significant changes EKG 2: Interpretation: EKG 04/29/2025 11:46 AM sinus rhythm rate of 87. TX interval 189 QTc 461. No acute ST changes. Nondiagnostic Q waves present on EKG or also noted on EKG in March 29 2025 Discharge Plan Discharge Patient Disposition: Home Clinical Impression: Fall, Cervicalgia Condition: Stable Prescriptions: New tizanidine 4 mg tablet 4 mg PO Q6H PRN (Reason: muscle spasticity) Qty: 20 0RF Rx Instructions: do not exceed 3 doses per 24 hrs methylprednisolone [Medrol (Ankush)] 4 mg tablets,dose pack See Rx Instructions .ROUTE .COMPLEX Qty: 21 0RF Rx Instructions: orally per package directions No Action (DME) Omnipod 5 G6 Pods (Gen 5) Cartridge See Rx Instructions .Route Qty: 5 2RF Rx Instructions: As directed (DME) ASO to the Left Ankle See Rx Instructions .Route .MEDSUPPLY Qty: 1 0RF Rx Instructions: As directed ciclopirox 0.77 % cream 1 applic topical BID 28 Days Qty: 30 0RF Rx Instructions: Apply to hands twice daily for 4 weeks (DME) Diabetic shoes with 3 sets of inserts See Rx Instructions .Route .MEDSUPPLY Qty: 1 0RF Rx Instructions: As directed HOME insulin glargine [Lantus Solostar U-100 Insulin] 100 unit/mL (3 mL) insulin pen See Rx Instructions .ROUTE .COMPLEX Qty: 45 3RF Dose Instruction: inject 50 units (0.5ml) SUBCUTANEOUSLY EVERY DAY Rx Instructions: inject 50 units (0.5ml) SUBCUTANEOUSLY EVERY DAY insulin aspart U-100 [Novolog FlexPen U-100 Insulin] 100 unit/mL (3 mL) insulin pen See Rx Instructions .ROUTE .COMPLEX Qty: 27 3RF Dose Instruction: inject 10 units SUBCUTANEOUSLY THREE TIMES DAILY Rx Instructions: start at 5 units a day then go to 10 units SUBCUTANEOUSLY THREE TIMES DAILY gabapentin 300 mg capsule 300 mg PO TID metoprolol succinate 25 mg tablet extended release 24 hr 25 mg PO DAILY Qty: 90 3RF furosemide 40 mg tablet 40 mg PO DAILY Qty: 90 0RF (DME) lancets [Accu-Chek Fastclix Lancet Drum] Misc See Rx Instructions .ROUTE .MEDSUPPLY Qty: 100 1RF Rx Instructions: TWICE DAILY clobetasol 0.05 % ointment 1 applic topical BID 14 Days Qty: 60 1RF Rx Instructions: Apply to palm & trunk. Use for no more than 2 weeks per month. Not for use on face/skin folds. (DME) hinged knee brace See Rx Instructions .Route .MEDSUPPLY Qty: 1 0RF Rx Instructions: As directed (DME) 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 meter [Accu-Chek Guide Glucose Meter] Misc See Rx Instructions .Route Qty: 1 0RF Rx Instructions: As directed (DME) lancets [Accu-Chek Softclix Lancets] Misc See Rx Instructions .Route Qty: 100 0RF Rx Instructions: As directed (DME) Accu-Chek Guide test strips Strip See Rx Instructions .ROUTE .COMPLEX Qty: 200 0RF Dose Instruction: check UP TO TWICE DAILY Rx Instructions: check UP TO TWICE DAILY (DME) Dexcom G7 Court Recording Monitor Misc See Rx Instructions .Route Qty: 1 0RF Rx Instructions: As directed albuterol sulfate 90 mcg/actuation HFA aerosol inhaler See Rx Instructions .ROUTE .COMPLEX Qty: 8.5 5RF Dose Instruction: inhale TWO puffs BY MOUTH EVERY 6 HOURS as needed for SHORTNESS OF BREATH or wheezing Rx Instructions: inhale TWO puffs BY MOUTH EVERY 6 HOURS as needed for SHORTNESS OF BREATH or wheezing oxycodone 5 mg tablet 5 mg PO Q6H PRN (Reason: pain postop) 7 Days Qty: 28 0RF (DME) pen needle, diabetic [BD Ultra-Fine Micro Pen Needle] 32 gauge x 1/4 needle See Rx Instructions .ROUTE .COMPLEX Qty: 300 0RF Dose Instruction: USE THREE TIMES DAILY Rx Instructions: USE THREE TIMES DAILY montelukast 10 mg tablet See Rx Instructions .ROUTE .COMPLEX Qty: 90 1RF Dose Instruction: TAKE 1 TABLET BY MOUTH EVERY DAY Rx Instructions: TAKE 1 TABLET BY MOUTH EVERY DAY budesonide-formoterol [Symbicort] 160-4.5 mcg/actuation HFA aerosol inhaler See Rx Instructions .ROUTE .COMPLEX Qty: 10.2 2RF Dose Instruction: inhale TWO puffs BY MOUTH TWICE DAILY FOR copd Rx Instructions: inhale TWO puffs BY MOUTH TWICE DAILY FOR copd venlafaxine 150 mg capsule,extended release 24hr See Rx Instructions .ROUTE .COMPLEX Qty: 30 2RF Dose Instruction: TAKE ONE CAPSULE BY MOUTH EVERY DAY Rx Instructions: TAKE ONE CAPSULE BY MOUTH EVERY DAY Imitrex 25 mg tablet See Rx Instructions .ROUTE .COMPLEX PRN (Reason: Migraine Headache) Qty: 30 1RF Rx Instructions: TAKE 1 TABLET BY MOUTH EVERY 2 HOURS NEEDED FOR MIGRAINE HEADACHE. MAX OF FOUR TABLETS PER 24 HOURS (DME) Dexcom G7 Sensor Device See Rx Instructions .Route Qty: 9 3RF Rx Instructions: As directed omeprazole 40 mg capsule,delayed release(DR/EC) 40 mg PO BID PRN (Reason: acid reflux) Qty: 180 0RF isosorbide mononitrate 30 mg tablet extended release 24 hr 30 mg PO BID Qty: 180 3RF Jardiance 25 mg tablet See Rx Instructions .ROUTE .COMPLEX Qty: 90 0RF Dose Instruction: TAKE 1 TABLET BY MOUTH DAILY FOR SIX weeks Rx Instructions: TAKE 1 TABLET BY MOUTH DAILY Mounjaro 10 mg/0.5 mL pen injector See Rx Instructions .ROUTE .COMPLEX Qty: 2.5 0RF Dose Instruction: INJECT 10MG (0.5ML) SUBCUTANEOUSLY EVERY 7 DAYS Rx Instructions: INJECT 10MG (0.5ML) SUBCUTANEOUSLY EVERY 7 DAYS potassium chloride 20 mEq tablet extended release See Rx Instructions .ROUTE .COMPLEX Qty: 90 1RF Dose Instruction: TAKE 1 TABLET BY MOUTH EVERY DAY Rx Instructions: TAKE 1 TABLET BY MOUTH EVERY DAY Discharge Orders: Discharge ED (Routine); Ordered 04/29/25 Ordered By: Selvin Mann Referrals: Lory Olmstead MD [Primary Care Provider, Family Practice] Discharge Diet: Usual diet Discharge Activity: Increase activity as tolerated Patient Instructions: Opioid Safety, Pain Management, Patient Portal & Tray Instructions Activity Restrictions/Additional Instructions: Thank you for choosing [facility] for your healthcare needs today. It is very important that you follow up as instructed or that you return to the Emergency Department should you have concerns or if your condition changes or worsens in any way. Print Language: Ukrainian Coding Level of Care Code ED Pecan Gatherer for Leonela Escobedo
[2025-04-29 09:58] LABS: Alanine Aminotransferase 15 U/L (0-33); Albumin Level 3.9 g/dL (3.5-5.2); Alkaline Phosphatase 111 U/L (35-105); Anion Gap 16.9 (5-19); Aspartate Amino Transferase 11 U/L (0-32); Blood Urea Nitrogen 10 mg/dL (6-20); Calcium 9.2 mg/dL (8.5-10.5); Carbon Dioxide 21 mmol/L (22-29); Chloride 104 mmol/L (98-107); Creatinine Clr Calc Pharmacy 204.4215; Globulin 3.4 g/dL (1.3-4.6); Glucose 196 mg/dL (65-115); Osmolality Calculated 290 mOsm/kg (285-295); Potassium 3.9 mmol/L (3.5-5.1); Sodium 138 mmol/L (136-145); Total Protein 7.3 g/dL (6.6-8.7)
[2025-04-29 09:59] LABS: Troponin(5th) Baseline < 6 ng/L (0-10)
[2025-04-29] MEDS: orphenadrine 30 mg/mL Inj 2 mL 60 MG IM (10:57)
[2025-04-29 11:25] LABS: Glucose Urine UA 3+ (Normal); Nitrate Urine Negative (Negative)
[2025-04-29 11:30] LABS: Add Urine Microscopic? YES
[2025-04-29 11:31] LABS: Troponin 5 2HR < 6.0 ng/L (0-10); Troponin 5 2HR Delta 0 ABS# (0-10)
--- NOTE | 2025-04-29 11:33 | ECG_ITS ---
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 Measurements Intervals [place] Rate: 87 P: 144 SC: 189 QRS: 29 QRSD: 91 T: -18 QT: 383 QTc: 461 Interpretive Statements SINUS RHYTHM POSSIBLE LEFT ATRIAL ENLARGEMENT [-0.1mV P-WAVE IN V1/V2] INFERIOR MYOCARDIAL INFARCTION , OF INDETERMINATE AGE [40+ ms Q WAVE AND/OR ST/T ABNORMALITY IN II/aVF] Compared to ECG 04/29/2025 09:34:44 Myocardial infarct finding now present Electronically Signed On 04-30-2025 09:39:03 CDT by Cullen Gavin M.D. [email or web address]
[2025-04-29 11:39] LABS: Specific Gravity, Urine 1.033 (1.005-1.030); UA Slide Review UA Slide Review Perf
[2025-04-29] MEDS: morphine 4 mg/mL SDV 1 mL 2 MG IVP ×2 (11:59→12:46)
== END 2025-04-29 13:03 | disposition home or self-care (01) ==
PROVIDERS: Emergency Provider Family Medicine; PCP Family Medicine
DX: M54.2 Cervicalgia (principal); Z79.4 Long term (current) use of insulin; F17.210 Nicotine dependence, cigarettes, uncomplicated; E11.9 Type 2 diabetes mellitus without complications; E78.5 Hyperlipidemia, unspecified; I10 Essential (primary) hypertension; W19.XXXA Unspecified fall, initial encounter
CPT/HCPCS: 36415; 71045; 72125; 80053; 81001; 84484; 85025; 87086; 93005; 96372; 96374; 96376; 99285; J2270; J2360

== ENCOUNTER 2025-05-18 09:34 | Oncology outpatient (recurring) (ONCR) | payer MEDICARE, MEDICAID, SELFPAY ==
[2025-05-18 09:59] LABS: Hematocrit 45.2 % (36-47); Hemoglobin 14.80 g/dL (11.27-16.99); Mean Corpuscular HGB Conc 32.7 g/dL (30-55); Mean Corpuscular Hemoglobin 26.5 pg (27-33); Mean Corpuscular Volume 80.9 fl (85-98); Nucleated Red Blood Cells % 0 %; Platelet Count 304 10^3/cmm (157-399); Red Blood Count 5.59 10^6/uL (3.85-5.65); White Blood Count 12.39 10^3/uL (3.29-11.43)
[2025-05-18 10:16] LABS: Alanine Aminotransferase 55 U/L (0-33); Albumin Level 4.0 g/dL (3.5-5.2); Alkaline Phosphatase 123 U/L (35-105); Anion Gap 14.2 (5-19); Aspartate Amino Transferase 69 U/L (0-32); Blood Urea Nitrogen 11 mg/dL (6-20); Calcium 8.4 mg/dL (8.5-10.5); Carbon Dioxide 22 mmol/L (22-29); Chloride 105 mmol/L (98-107); Creatinine Clr Calc Pharmacy 175.4988; Globulin 3.4 g/dL (1.3-4.6); Glucose 252 mg/dL (65-115); Osmolality Calculated 292 mOsm/kg (285-295); Potassium 4.2 mmol/L (3.5-5.1); Sodium 137 mmol/L (136-145); Total Protein 7.4 g/dL (6.6-8.7)
== END 2025-06-07 23:59 | disposition home or self-care (01) ==
PROVIDERS: PCP Family Medicine; Visit Provider Nurse Practitioner Family
DX: D75.1 Secondary polycythemia (principal); D72.829 Elevated white blood cell count, unspecified; F17.210 Nicotine dependence, cigarettes, uncomplicated; R03.0 Elevated blood-pressure reading, without diagnosis of hypertension; E11.9 Type 2 diabetes mellitus without complications; Z71.6 Tobacco abuse counseling
CPT/HCPCS: 36415; 80053; 85025; 99214

== ENCOUNTER 2025-05-21 14:14 | Emergency (ER) | payer MEDICARE, MEDICAID, SELFPAY ==
--- OUTSIDE RECORDS SUMMARY | 2003-09-07 19:00 | XMS_ITS | Continuity of Care Document ---
Author Name [facility] Address [address] [place] [address] Organization [facility] Care Team Providers Care Aerospace Project Engineer Name Role Phone [facility] Unavailable Problems Problem Status Onset Date Problem Type Date of Resolution Comme nts Source Tobacco user (finding) Active Condition Type II diabetes mellitus uncontrolled (finding) Active Condition Pain in right leg (finding) Active Condition Encounters Location Location Details Encounter Type Encounter Number Reason For Visit Attending Provider ADM Date DC Date Status Source [facility] Outpatient [id number] 3 month follow- up Aleksander Fay [facility]
--- OUTSIDE RECORDS SUMMARY | 2019-02-03 03:27 | XMS_ITS | Continuity of Care Document ---
Author Organization [facility] Address [address] [id number][place] [address] Phone Care Team Providers Care Resource Manager Name Role Phone Annie Paris Unavailable Unavailable [...] need follow up for any more refills [facility] 15MG TAB TAKE 1 TABLET BY [...] Diagnoses Date Provider Providers Copied on Encounter [facility], [id number]- [place], [address], [place] tel:[phone] [facility] No Information 9 Saima Annie. [address] [place] [address], [id number], [place]. tel:[phone] [facility], [id number]- [place], [place], [address], [place] tel:[phone] [facility] No Information 0 9 Saima Annie. [address] [place], [place], [address], [place]. tel:[phone] [facility], [id number] 7097[place]CPAntio[place], [address], [place] tel:[phone] [facility] No Information 9 Saima Annie. [address] [place] [address], [id number], [place]. tel:[phone] [facility], [id number]- [facility], [place], [place], [address], [place] tel:[phone] [facility] No Information 9 Saima Annie. [address] [place], [place], [address], [place]. tel:[phone] [facility], [id number] 4706588IO- [facility], [place], [place], [address], [place] tel:[phone] [facility] No Information 9 No Information [facility], [id number] 5727096WS- [facility], [place], [place], [address], [place] tel:[phone] [facility] No Information 8 Saima Annie. [address] [place] [address], [id number], [place]. tel:[phone] [facility], [id number] 0317451SPAnt[place], [place], [address], [place] tel:[phone] [facility] No Information 8 Saima Annie. [address] [place] [address], [id number], [place]. tel:[phone] [facility], [id number] 0864125NX[place], [place], [address], [place] tel:[phone] [facility] No Information 8 Saima Annie. [address] [place], [place], [address], [place]. tel:[phone] [facility], [id number] 3349306DSAntioch, [place], [address], [place] tel:[phone] [facility] No Information 0 8 Keith Nguyen. [address] [place], [address], [place]. tel:[phone] OFFICE/OUTPA TIENT VISIT, [facility], [id number] 9217776MC[place], [place], [address], [place] tel:[phone] [facility] Addiction (chief complaint) Tobacco use 8 Keith Nguyen. [address] [place], [address], [place]. tel:[phone] Referring Provider: Patrick Keith, [address] [place], [address]. tel:[phone] OFFICE/OUTPA TIENT VISIT, [facility], [id number] 8227394ECAntioch, [place], [address], [place] tel:[phone] [facility] Diabetes (follow up) (chief complaint)f all (chief complaint) Pain in unspecified kneeType 2 diabetes mellitus without complications 8 Saima Valencia. [address] [place] [address], [id number], [place]. tel:[phone] Referring Provider: Annie Landaverde, [address] [place] [address], [address] . tel:[phone] OFFICE/OUTPA TIENT VISIT, [facility], [address] [id number] [id number], [place], [address], [place] tel:[phone] [facility] anxiety (chief complaint)d epression (chief complaint)h ypertension (chief complaint)c hronic bronchitis (chief complaint)d iabetes (chief complaint) Essential (primary) hypertensionTy pe 2 diabetes mellitus without complicationsD epressionAnxie tyChronic bronchitis 7 Saima Valencia. [address] [place] [address], [id number], [place]. tel:[phone] Referring Provider: Annie Landaverde, [address] [place] [address], [address] . tel:[phone] [facility], [id number] 0716146TJAnt[place], [place], [address], [place] tel:[phone] [facility] F1 Type 2 diabetes mellitus without complicationsE ssential (primary) hypertension Saima Valencia. [address] [place] [address], [id number], [place]. tel:[phone] Referring Provider: Annie Landaverde, [address] [place] [address], [address] . tel:[phone] [facility], [address]sxh[address]X7 6608329JZAntioch, [place], [address], [place] tel:[phone] [facility] Type 2 diabetes mellitus without complicationsE ssential (primary) hypertension Saima Valencia. [address] [place] [address], [id number], [place]. tel:[phone] Referring Provider: Annie Landaverde, [address] [place] [address], [address] . tel:[phone] [facility], [id number] 4235629YBAntioch, [place], [address], [place] tel:[phone] [facility] Encounter for dental exam [...] (finding) Payers Payer name Insurance type Covered democrat ID Wenceslao Zepeda (s) [place] Medicaid MC [id number] Social History Type Description Quantity Date Captured Comments Sex Female Smoking Status No Information Sexual Orientation Heterosexual Gender Identity Female Chief Complaint And Reason For Visit No Information Reason For Referral Reason For Referral No Information Plan Of Treatment Date Type Action Status Goal Potassium. Due on 8 due Goal Creatinine. Due on due Goal Potassium. Due on 8 due Goal Creatinine. Due on 18 due Goal Dietary management education , guidance, [...] last used opioids 1.5 weeks ago with Girard 5mg.Drug use:Opioids: Girard last dose was two weeks agoTHC: currentMeth- neverCocaine- NeverHeroin- NeverAlcohol- Once week (wasted)LSD- neverShe stated that she would usually snort her Girard. She stated that she is smoking anything [...] and tramadol. She sees Dr. Dodson through [facility] who is Ortho. They are trying [...] Was seeing Kyara at Internal Meds at [facility] but then she left. notes dizziness sometimes when stands too fast depression The symptoms are reported as being moderate. Relieving factors include celexa. She states the symptoms are chronic and are stable. Pt sees Dr. Jaquez at [facility] who is managing her depression [...] complications Pt states she went t o [facility] ER 10 days ago who prescribed her tramadol. [facility] has no ER visit regarding her knees from the last month. Judy does not have tramadol as being prescribed to her. She saw her Ortho yesterday who recommended tylenol for pain. Will get millenium today. I do not recommend tramadol at this time Related to Pain in unspecified knee pt will [facility] with [facility] Related to Anxiety i will refill the fabiola roldan's ventolin todaywill get records from prior pcp at [facility]. Related to Chronic bronchitis pt will continue [...]
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
--- OUTSIDE RECORDS SUMMARY | 2025-05-21 14:20 | XMS_ITS | Patient Health Record ---
Author Organization [facility] Address [address] [place] [address] Care Team Providers Care Mold Technician Name Role Phone Martínez Lovelace MD Primary Care Provider Unavailab Martínez Etienne Unavailable [phone] Migration, Provider Unavailable Unavailable Carmella Collier Unavailable [phone] Allergies Allergen (clinical drug ingredient) Drug/Non Drug Allergy documented on EMR Reaction Allergy Type Onset Date Status ibuprofen Ibuprofen Unknown Drug Allergy Active Diclofenac Unknown Drug Allergy Active ketorolac Ketorolac Unknown Drug Allergy Active Results Component Value Reference Range Flag Notes Urine Drug Screen (cup read) - 61731 Reviewed date:03/17/2025 03:38:11 PM Interpretation: Performing Lab: Notes/Report: OXY + Urine Drug Screen (cup read) - 72353 Reviewed date:01/20/2025 02:13:11 PM Interpretation:Negative Performing Lab: Notes/Report: Negative Urine Drug Screen (cup read) - 24240 Reviewed date:11/18/2024 01:06:05 PM Interpretation:Negative Performing Lab: Notes/Report: Negative zzzUrine Drug Screen (confir mation by instrument) - 85185 Reviewed date:08/18/2024 12:41:36 PM Interpretation: Performing Lab: Notes/Report: Urine Confirmation Panel (in strument) - [id number] Reviewed date:03/23/2025 03:06:19 PM Interpretation: Performing Lab: [...] the U.S. Food and Drug Administration. Gabapentin >80355 <225 ng/mL > This test was developed [...] Administration. Urine Confirmation Panel (in strument) - [id number] Reviewed date:01/24/2025 02:41:05 PM Interpretation: Performing Lab: [...] Administration. Urine Confirmation Panel (in strument) - [id number] Reviewed date:11/24/2024 02:49:57 PM Interpretation: Performing Lab: [...] the U.S. Food and Drug Administration. Gabapentin >54234 <225 ng/mL > This test was developed [...] eRX* Active Wellbutrin SR *Pick strength-form from [employer] for eRX* Active Ferrous Gluconate *Pick strength-form from [employer] for eRX* Active Doxepin *Reorder from [employer] for eRx and Interaction Alerts* Active hydrOXYzine HCl *[facility]* Active Gabapentin *Pick strength-form from [facility] for eRX* Active Metformin *Reorder from [facility] for eRx and Interaction Alerts* Active Lisinopril *Pick strength-form from [facility] for eRX* Active Isosorbide Dinitrate 30 MG Tablet 1 tablet Orally Twice a day 01/20/2025 Active Omeprazole *Pick strength-form from [facility] for eRX* Active montelukast *Reorder from [facility] for eRx and Interaction Alerts* Active Amitriptyline *Reorder from [facility] for eRx and Interaction Alerts* Active Metoprolol Tartrate 25 MG Tablet 1 tablet with food Orally once a day 01/20/2025 Active Spironolactone *Pick strength-form from [facility] for eRX* Active Social History Social History [...] Status Risk Notes Problem Morbid obesity (disorder) (132411922) Morbid (severe) obesity due to excess calories (E66.01) 02/27/20 Active confirmed Problem Chronic pain syndrome (055715025) Chronic pain syndrome (G89.4) 02/27/20 Active confirmed Problem Thoracic spondylosis without myelopathy (269240320) Other spondylosis with radiculopathy, thoracic region (M47.24) 02/27/20 Active confirmed Problem Lumbosacral spondylosis without myelopathy (40286276) Other spondylosis with radiculopathy, lumbosacral region (M47.27) 02/27/20 Active confirmed Problem Degeneration of lumbar intervertebral disc (72849030) Other intervertebral disc degeneration, lumbar region (M51.36) 02/27/20 Active confirmed Problem Abnormal gait (89249562) Unspecified abnormalities of gait and mobility (R26.9) 06/21/20 24 Active confirmed Problem High risk drug monitoring status (925841482) 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) Active confirmed Problem Thoracic radiculopathy (75118600) Thoracic radiculopathy (M54.14) Active confirmed Problem Thoracic spondylosis (731253417) Thoracic spondylosis (M47.814) Active confirmed Problem Lumbosacral radiculopathy (3931873) L-S radiculopathy (M54.17) Active confirmed Problem Lumbosacral spondylosis (139625875) Lumbosacral spondylosis (M47.817) Active confirmed Vital Signs Height-cm 160.02 cm 05/18/2025 Weight-kg 137.89 kg 05/18/2025 Height 63.00 in 05/18/2025 Weight 304 lbs 05/18/2025 BMI 53.85 kg/m2 05/18/2025 Encounters Encounter Location Date Provider Diagnosis [facility] [address] [address] 07/14/2024 Martínez Venegas [facility] [address] [address] 05/18/2025 Martínez Venegas Chronic pain syndrom e G89.4 ; Thoracic radiculopathy M54.14 ; Thoracic spondylosis M47.814 ; Degeneration of intervertebral disc of lumbar region with discogenic back pain M51.360 ; L-S radiculopathy M54.17 ; Lumbosacral spondylosis M47.817 ; Unspecified abnormalities of gait and mobility R26.9 and half-way (current) use of opiate analgesic Z79.891 [facility] [address] [address] 06/10/2024 Carmella Collier [facility] [address] [address] 08/12/2024 Carmella Collier Chronic pain syndrom e G89.4 ; Thoracic radiculopathy M54.14 ; Thoracic spondylosis M47.814 ; Degeneration of intervertebral disc of lumbar region with discogenic back pain M51.360 ; L-S radiculopathy M54.17 ; Arthritis of lumbosacral spine M47.817 and half-way (current) use of opiate analgesic Z79.891 [facility] [address] [address] 09/15/2024 Martínez Venegas Chronic pain syndrom e G89.4 ; Thoracic radiculopathy M54.14 ; Thoracic spondylosis M47.814 ; Degeneration of intervertebral disc of lumbar region with discogenic back pain M51.360 ; L-S radiculopathy M54.17 ; Lumbosacral spondylosis M47.817 ; Unspecified abnormalities of gait and mobility R26.9 and 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 Z79.891 [facility] [address] [address] 11/18/2024 Carmella Collier Chronic pain syndrom e G89.4 ; Thoracic radiculopathy M54.14 ; Thoracic spondylosis M47.814 ; Degeneration of intervertebral disc of lumbar region with discogenic back pain M51.360 ; L-S radiculopathy M54.17 ; Lumbosacral spondylosis M47.817 ; Unspecified abnormalities of gait and mobility R26.9 and half-way (current) use of opiate analgesic Z79.891 [facility] [address] [address] 01/20/2025 Carmella Collier Chronic pain syndrom e G89.4 ; Thoracic radiculopathy M54.14 ; Degeneration of intervertebral disc of lumbar region with discogenic back pain M51.360 ; L-S radiculopathy M54.17 ; Unspecified abnormalities of gait and mobility R26.9 ; half-way (current) use of opiate analgesic Z79.891 ; Lumbosacral spondylosis M47.817 and Thoracic spondylosis M47.814 [facility] [address] [address] 03/17/2025 Carmella Collier Chronic pain syndrom e G89.4 ; Thoracic radiculopathy M54.14 ; Degeneration of intervertebral disc of lumbar region with discogenic back pain M51.360 ; L-S radiculopathy M54.17 ; Unspecified abnormalities of gait and mobility R26.9 ; Thoracic spondylosis M47.814 ; Analgesic use Z79.899 and Lumbosacral spondylosis M47.817 [facility] 0 0 07/03/2024 Provider Migration [facility] 0 07/04/2024 Provider Migration [facility] [address] [facility] [place] [address] 08/12/2024 Martínez Venegas [facility] [place] [address] [place] [address] 08/16/2024 Martínez Venegas [facility] [place] [address] [place] [address] 11/18/2024 Martínez Venegas Thoracic radiculopathy M54.14 [facility] [place] [address] [place] [address] 12/14/2024 Carmella Nando [facility] [place] [address] [place] [address] 01/20/2025 Martínez Venegas [facility] [place] [address] [place] [address] 02/08/2025 Martínez Venegas [facility] [place] [address] [place] [address] 03/17/2025 Martínez Venegas Chronic pain syndrom e G89.4 [facility] [place] [address] [place] [address] 05/19/2025 Martínez Venegas Assessments Encounter Date Diagnosis (ICD Code) Assessment [...] effects are noted. Last UDS and [place] OCEANOGRAPHER GEOLOGICAL reviewed today. Patient is advised that best [...] effects are noted. Last UDS and [place] OCEANOGRAPHER GEOLOGICAL reviewed today. Patient is advised that best [...] 03/17/2025 Chronic pain syndrome (ICD-10 - G89.4) 05/18/2025 Chronic pain syndrome (ICD-10 - G89.4) [...] children were coming over because it was information scientist their place, and they didn't have AC. [...] basis. 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 (ICD-10 - Z79.891) 03/17/2025 Thoracic spondylosis (ICD-10 - M47.814) 05/18/2025 L-S radiculopathy (ICD-10 - M54.17) 05/18/2025 Lumbosacral spondylosis (ICD-10 - M47.817) 03/17/2025 Analgesic use (ICD-10 - Z79.899) 01/20/2025 Lumbosacral spondylosis (ICD-10 - M47.817) 11/18/2024 Lumbosacral spondylosis (ICD-10 - M47.817) 09/15/2024 Unspecified abnormalities of gait and mobility (ICD-10 - R26.9) 08/12/2024 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 05/18/2025 Other [place], Juliann Sellers, am scribing for Dr. Vicente Cunningham. I, Dr. Vicente Cunningham, personally performed the services described in this documentation, as scribed by Juliann Sellers, and it is both accurate and complete. 08/12/2024 Other I had a nice discussion with the patient today regarding her chronic pain complaints. She continues with mid back and lower back pain. She feels her medication is working reasonably well for her. She does feel it does help some with the increase of her gabapentin. She states on Thanks[place] she sprained her ankle but is wearing [...] both accurate and complete. Plan Of Treatment No Information Insurance Providers Payer Name Payer Address Payer Phone Subscriber Number Group Number Insured Name Patient Relationship to Insured Coverage Start Date Coverage End Date [employer] Replacement [address] [address] [place] [address] [id number] Lorraine Curry Self - patient is the insured 1 [place] [address] [place] [address] [id number] Lorraine Curry Self - patient is the insured [place] [address] [address] [place] [address] [id number] Lorraine Curry Self - patient is the insured Medical (General) History Surgical History Surgery Date(Month/Year) Cholecystectomy Hospitalization History Reason Date(Month/Year) See Surgical Hx
[2025-05-21 15:20] VITALS: BP 127/84; PULSE 107; RESP 14; TEMP 36.5; O2SAT 95; BMI 53.1
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
[2025-05-21 17:42] VITALS: BP 130/84; PULSE 72; O2SAT 98
== END 2025-05-21 17:43 | disposition home or self-care (01) ==
PROVIDERS: Emergency Provider Physician Assistant
DX: S93.402A Sprain of unspecified ligament of left ankle, initial encounter (principal); Z79.4 Long term (current) use of insulin; F17.210 Nicotine dependence, cigarettes, uncomplicated; E78.5 Hyperlipidemia, unspecified; E11.9 Type 2 diabetes mellitus without complications; I10 Essential (primary) hypertension; W03.XXXA Other fall on same level due to collision with another person, initial encounter
CPT/HCPCS: 73610; 99283

== ENCOUNTER → 2025-06-13 13:37 | Outpatient (BNVA) | payer MEDICARE, MEDICAID, SELFPAY | PROVIDERS: PCP Family Medicine; Visit Provider Family Medicine | DX: E11.49 Type 2 diabetes mellitus with other diabetic neurological complication (principal); R74.01 Elevation of levels of liver transaminase levels; E78.2 Mixed hyperlipidemia; Z79.4 Long term (current) use of insulin; K76.0 Fatty (change of) liver, not elsewhere classified | CPT/HCPCS: 80053; 80061; 82043; 83036 ==

== ENCOUNTER 2025-06-20 18:58 | Emergency (ER) | payer MEDICARE, MEDICAID, SELFPAY ==
--- NOTE | 2025-06-20 18:57 | ECG_ITS ---
[facility]: 2025[facility]20 Pat Name: Lorraine Curry Department: Room: Gender: Female Birth Attendant: : 1985 Requested By: Christiano Caban Order Number: [id number] Bernal MD: Rob Lopez M.D. Measurements Intervals [place] Rate: 73 P: 50 [place]: 187 QRS: 33 QRSD: 88 T: 40 QT: 377 QTc: 418 Interpretive Statements SINUS RHYTHM Compared to ECG 04/29/2025 11:46:18 Myocardial infarct finding no longer present Electronically Signed On 06-22-2025 21:26:36 CDT by Rob Lopez M.D. [email or web address]
[2025-06-20 18:59] VITALS: BP 147/95; PULSE 83; RESP 18; TEMP 36.7; O2SAT 97; BMI 52.7
--- OUTSIDE RECORDS SUMMARY | 2025-06-20 19:06 | XMS_ITS | Patient Health Record ---
Author Organization [facility] Address [address] [place] [address] Care Team Providers Care Personal Care Service Provider Name Role Phone Martínez Lovelace MD Primary Care Provider Unavailab Martínez Etienne Unavailable [phone] Migration, Provider Unavailable Unavailable Na Pena Unavailable Nando Carmella Unavailable [phone] Allergies Allergen (clinical drug ingredient) Drug/Non Drug Allergy documented on EMR Reaction Allergy Type Onset Date Status ibuprofen Ibuprofen Unknown Drug Allergy Active Diclofenac Unknown Drug Allergy Active ketorolac Ketorolac Unknown Drug Allergy Active Results Component Value Reference Range Flag Notes Urine Drug Screen (cup read) - [id number] Reviewed date:01/20/2025 02:13:11 PM Interpretation:Negative Performing Lab: Notes/Report: Negative Urine Confirmation Panel (in strument) - [id number] Reviewed date:01/24/2025 02:41:05 PM Interpretation: Performing Lab: [...] Administration. Urine Confirmation Panel (in strument) - [id number] Reviewed date:11/24/2024 02:49:57 PM Interpretation: Performing Lab: [...] the U.S. Food and Drug Administration. Gabapentin >95896 <225 ng/mL > This test was developed [...] Administration. Urine Drug Screen (cup read) - 98908 Reviewed date:11/18/2024 01:06:05 PM Interpretation:Negative Performing Lab: Notes/Report: Negative Tox Results Reviewed date:01/25/2025 08:35:38 AM Interpretation: Performing Lab: Notes/Report: Tox Results Reviewed date:03/23/2025 03:23:59 PM Interpretation: Performing Lab: Notes/Report: Tox Results Reviewed date:11/24/2024 02:49:57 PM Interpretation: Performing Lab: Notes/Report: zzzUrine Drug Screen (confir mation by instrument) - [id number] Reviewed date:08/18/2024 12:41:36 PM Interpretation: Performing Lab: Notes/Report: Urine Confirmation Panel (in strument) - [id number] Reviewed date:03/23/2025 03:06:19 PM Interpretation: Performing Lab: [...] the U.S. Food and Drug Administration. Gabapentin >02148 <225 ng/mL > This test was developed [...] Administration. Urine Drug Screen (cup read) - [id number] Reviewed date:03/17/2025 03:38:11 PM Interpretation: Performing Lab: Notes/Report: OXY + Reason For Referral No Information Medications Medication SIG (Take, Route, Frequency, Duration) Notes Start Date End Date Status Atenolol *Pick strength-form from [facility] for eRX* Active Wellbutrin SR *Pick strength-form from [facility] for eRX* Active Ferrous Gluconate *Pick strength-form from [facility] for eRX* Active Doxepin *Reorder from [facility] for eRx and Interaction Alerts* Active hydrOXYzine HCl *Pick strength-form from [facility] for eRX* Active Gabapentin *Pick strength-form from [facility] for eRX* Active Metformin *Reorder from [facility] for eRx and Interaction Alerts* Active Lisinopril *Pick strength-form from [facility] for eRX* Active Isosorbide Dinitrate 30 MG Tablet 1 tablet Orally Twice a day 01/20/2025 Active Omeprazole *Pick strength-form from [facility] for eRX* Active montelukast *Reorder from [facility] for eRx and Interaction Alerts* Active Amitriptyline *Reorder from [facility] for eRx and Interaction Alerts* Active Metoprolol Tartrate 25 MG Tablet 1 tablet with food Orally once a day 01/20/2025 Active Spironolactone *Pick strength-form from [facility] for eRX* Active Social History Social [...] Status Risk Notes Problem Morbid obesity (disorder) (016269395) Morbid (severe) obesity due to excess calories (E66.01) 02/27/20 24 Active confirmed Problem Chronic pain syndrome (313370387) Chronic pain syndrome (G89.4) 02/27/20 24 Active confirmed Problem Thoracic spondylosis without myelopathy (130251596) Other spondylosis with radiculopathy, thoracic region (M47.24) 02/27/20 Active confirmed Problem Lumbosacral spondylosis without myelopathy (40155939) Other spondylosis with radiculopathy, lumbosacral region (M47.27) 02/27/20 24 Active confirmed Problem Degeneration of lumbar intervertebral disc (47702101) Other intervertebral disc degeneration, lumbar region (M51.36) 02/27/20 24 Active confirmed Problem Abnormal gait (20541381) Unspecified abnormalities of gait and mobility (R26.9) 02/27/20 24 Active confirmed Problem High risk drug monitoring status (538729862) jail (current) use of opiate analgesic (Z79.891) Active confirmed Problem Thoracic radiculopathy (79040966) Thoracic radiculopathy (M54.14) Active confirmed Problem Thoracic spondylosis (390321538) Thoracic spondylosis (M47.814) Active confirmed Problem Lumbosacral radiculopathy (0555386) L-S radiculopathy (M54.17) Active confirmed Problem Lumbosacral spondylosis (242557330) Lumbosacral spondylosis (M47.817) Active confirmed Vital Signs Height-cm 160.02 cm 05/18/2025 Weight-kg 137.89 kg 05/18/2025 Height 63.00 in 05/18/2025 Weight 304 lbs 05/18/2025 BMI 53.85 kg/m2 05/18/2025 Encounters Encounter Location Date Provider Diagnosis [facility] [address] [address] 07/14/2024 Martínez Venegas [facility] [address] [address] 08/12/2024 Carmella Collier Chronic pain syndrom e G89.4 ; Thoracic radiculopathy M54.14 ; Thoracic spondylosis M47.814 ; Degeneration of intervertebral disc of lumbar region with discogenic back pain M51.360 ; L-S radiculopathy M54.17 ; Arthritis of lumbosacral spine M47.817 and meterman (current) use of opiate analgesic Z79.891 [facility] [address] [place] [address] 09/15/2024 Martínez Venegas Chronic pain syndrom e G89.4 ; Thoracic radiculopathy M54.14 ; Thoracic spondylosis M47.814 ; Degeneration of intervertebral disc of lumbar region with discogenic back pain M51.360 ; L-S radiculopathy M54.17 ; Lumbosacral spondylosis M47.817 ; Unspecified abnormalities of gait and mobility R26.9 and jail (current) use of opiate analgesic Z79.891 [facility] [address] [place] [address] 11/18/2024 Carmella Collier Chronic pain syndrom e G89.4 ; Thoracic radiculopathy M54.14 ; Thoracic spondylosis M47.814 ; Degeneration of intervertebral disc of lumbar region with discogenic back pain M51.360 ; L-S radiculopathy M54.17 ; Lumbosacral spondylosis M47.817 ; Unspecified abnormalities of gait and mobility R26.9 and meterman (current) use of opiate analgesic Z79.891 Pending Sale To [facility] [address] [address] 01/20/2025 Carmella Collier Chronic pain syndrom e G89.4 ; Thoracic radiculopathy M54.14 ; Degeneration of intervertebral disc of lumbar region with discogenic back pain M51.360 ; L-S radiculopathy M54.17 ; Unspecified abnormalities of gait and mobility R26.9 ; jail (current) use of opiate analgesic Z79.891 ; Lumbosacral spondylosis M47.817 and Thoracic spondylosis M47.814 Pending Sale To [facility] [address] [address] 03/17/2025 Carmella Nando Chronic pain syndrom e G89.4 ; Thoracic radiculopathy M54.14 ; Degeneration of intervertebral disc of lumbar region with discogenic back pain M51.360 ; L-S radiculopathy M54.17 ; Unspecified abnormalities of gait and mobility R26.9 ; Thoracic spondylosis M47.814 ; Analgesic use Z79.899 and Lumbosacral spondylosis M47.817 Pending Sale To [facility] [address] [address] 05/18/2025 Martínez Venegas Chronic pain syndrom e G89.4 ; Spondylosis of thoracic spine with radiculopathy M47.24 ; Degeneration of intervertebral disc of lumbar region with discogenic back pain M51.360 ; L-S radiculopathy M54.17 ; Lumbosacral spondylosis M47.817 ; Unspecified abnormalities of gait and mobility R26.9 ; jail (current) use of opiate analgesic Z79.891 ; Thoracic radiculopathy M54.14 and Thoracic spondylosis M47.814 Migrated_Facility 0 0 07/03/2024 Provider Migration [facility] 0 0 07/04/2024 Provider Migration [facility] [address] [place] [address] 08/12/2024 Martínez Venegas [facility] [address] [place] [address] 08/16/2024 Martínez Venegas [facility] [address] [place] [address] 11/18/2024 Martínez Venegas Thoracic radiculopathy M54.14 [facility] [address] [place] [address] 12/14/2024 Carmella Collier [facility] [address] [place] [address] 01/20/2025 Martínez Venegas [facility] [address] [place] [address] 02/08/2025 Martínez Venegas [facility] [address] [place] [address] 03/17/2025 Martínez Venegas Chronic pain syndrom e G89.4 [facility] [address] [place] [address] 05/19/2025 Martínez Venegas [facility] [address] [place] [address] 05/24/2025 Martínez Venegas [facility] [address] [place] [address] 05/25/2025 Na [facility] Assessments Encounter Date Diagnosis (ICD Code) Assessment [...] to monitor for treatment effectiveness and compliance. 03/17/2025 Chronic pain syndrome (ICD-10 - G89.4) [...] effects are noted. Last UDS and [employer] reviewed today. 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 [...] with her on an as-needed basis. 05/18/2025 Spondylosis of thoracic spine with radiculopathy (ICD-10 - M47.24) 01/20/2025 Chronic pain syndrome (ICD-10 - G89.4) [...] effects are noted. Last UDS and [employer] reviewed today. Patient is advised that best [...] policy. 01/20/2025 Thoracic radiculopathy (ICD-10 - M54.14) 05/18/2025 Degeneration of intervertebral disc of lumbar region with discogenic back pain (ICD-10 - M51.360) 03/17/2025 Degeneration of intervertebral disc of lumbar [...] M51.360) 11/18/2024 Thoracic spondylosis (ICD-10 - M47.814) 03/17/2025 L-S radiculopathy (ICD-10 - M54.17) 01/20/2025 L-S radiculopathy (ICD-10 - M54.17) 05/18/2025 L-S radiculopathy (ICD-10 - M54.17) 05/18/2025 Lumbosacral spondylosis (ICD-10 - M47.817) 01/20/2025 Unspecified abnormalities of gait and mobility (ICD-10 - R26.9) 11/18/2024 Degeneration of intervertebral disc of lumbar region with discogenic back pain (ICD-10 - M51.360) 03/17/2025 Unspecified abnormalities of gait and mobility (ICD-10 - R26.9) 08/12/2024 L-S radiculopathy (ICD-10 - M54.17) 09/15/2024 L-S radiculopathy (ICD-10 - M54.17) 09/15/2024 Lumbosacral spondylosis (ICD-10 - M47.817) 08/12/2024 Arthritis of lumbosacral spine (ICD-10 - M47.817) 03/17/2025 Thoracic spondylosis (ICD-10 - M47.814) 11/18/2024 L-S radiculopathy (ICD-10 - M54.17) 05/18/2025 Unspecified abnormalities of gait and mobility (ICD-10 - R26.9) 01/20/2025 meterman (current) use of opiate analgesic (ICD-10 - Z79.891) 01/20/2025 Lumbosacral spondylosis (ICD-10 - M47.817) 05/18/2025 jail (current) use of opiate analgesic (ICD-10 - Z79.891) 03/17/2025 Analgesic use (ICD-10 - Z79.899) 11/18/2024 Lumbosacral spondylosis (ICD-10 - M47.817) 09/15/2024 Unspecified abnormalities of gait and mobility (ICD-10 - R26.9) 08/12/2024 meterman (current) use of opiate analgesic (ICD-10 - Z79.891) 09/15/2024 jail (current) use of opiate analgesic (ICD-10 - Z79.891) 11/18/2024 Unspecified abnormalities of gait and mobility (ICD-10 - R26.9) 03/17/2025 Lumbosacral spondylosis (ICD-10 - M47.817) 05/18/2025 Thoracic radiculopathy (ICD-10 - M54.14) 01/20/2025 Thoracic spondylosis (ICD-10 - M47.814) 05/18/2025 Thoracic spondylosis (ICD-10 - M47.814) 11/18/2024 jail (current) use of opiate analgesic (ICD-10 - [...] increase of her gabapentin. She states on gi she sprained her ankle but is wearing a brace that helps. She denies any other changes since we last seen her any untoward side effects of the medication. She will continue her medication at present level and return to clinic in 1 month to monitor for treatment effectiveness and compliance. 09/15/2024 Other Francisco Fam, am scribing for Martínez Venegas. Martínez Fam, personally performed the services described in this documentation, as scribed by Francisco Alexandre, and it is both accurate and complete. 05/18/2025 Juliann Ellison am scribing for Dr. Vicente Cunningham. I, [...] End Date [employer] Medicare Replacement [address] [address] [place] [address] [id number] Lorraine Curry Self - patient is the insured 1 [place] [address] [place] [address] [id number] Lorraine Curry Self - patient is the insured [place] [address] [address] [place] [address] [id number] Lorraine Curry Self - patient is the insured Medical (General) History Surgical History Surgery Date(Month/Year) Cholecystectomy Hospitalization History Reason Date(Month/Year) See Surgical Hx
--- NOTE | 2025-06-20 19:18 | XRR_ITS ---
PROCEDURE INFORMATION: Exam: XR Chest Exam date and time: 06/20/2025 7:21 PM Age: 39 years old Clinical indication: Pain; Chest pressure; Prior surgery; Surgery date: 6+ months; Surgery type: Gallbladder; Additional info: Cp TECHNIQUE: Imaging protocol: Radiologic exam of the chest. Views: 1 view. COMPARISON: CR XR chest 1V portable [id number] 04/29/2025 9:42 AM FINDINGS: Lungs: Unremarkable. No consolidation. Pleural spaces: Unremarkable. No pleural effusion. No pneumothorax. Heart/Mediastinum: Unremarkable. No cardiomegaly. Bones/joints: Unremarkable. XR/XR chest 1V portable [id number] IMPRESSION: No acute findings.
[2025-06-20] MEDS: fentaNYL 50 mcg/mL INJ 2mL IVP (19:26)
[2025-06-20 19:28] LABS: Hematocrit 48.2 % (36-47); Hemoglobin 15.80 g/dL (11.27-16.99); Mean Corpuscular HGB Conc 32.8 g/dL (30-55); Mean Corpuscular Hemoglobin 26.5 pg (27-33); Mean Corpuscular Volume 80.7 fl (85-98); Nucleated Red Blood Cells % 0 %; Platelet Count 331 10^3/cmm (157-399); Red Blood Count 5.97 10^6/uL (3.85-5.65); White Blood Count 13.43 10^3/uL (3.29-11.43)
--- NOTE | 2025-06-20 19:28 | ED_ITS ---
HPI - Chest Pain 2 General: Chief Complaint: Chest Pain Stated Complaint: cp Time Seen by Provider: 06/20/25 19:01 Source: patient Mode of arrival: ambulatory Limitations: no limitations History of Present Illness: Patient is a 39-year-old female present to the emergency department by ambulance reporting chest pain about an hour prehospital. Ambulance gave nitroglycerin and aspirin, patient states this did not help her pain. Notes that the pain is reproducible to palpation, is centrally located radiating into her back. Noting associated shortness of breath and dizziness. No abdominal pain, nausea/vomiting/diarrhea. Also feels like her heart is going to beat out of her chest. Has a history of A-fib, normal sinus rhythm on the monitor at this time. Her vitals are stable at this time. States that the pain feels like a sharp/stabbing sensation. No history of heart attacks in the past, she does have a history of GERD but states this feels different. She has a history of type 2 diabetes, dyslipidemia, tobacco use disorder, generalized anxiety disorder and panic disorder. No previous history of heart attacks or strokes. MD complaint: chest pain Pertinent past history: other (Afib) Onset (ago): hour(s) Timing of current episode: constant Onset: during rest Pain location: substernal Pain radiation: left shoulder Severity: severe Quality: sharp and other (stabbing) Relieving factors: nothing Exacerbating factors: palpation Associated symptoms: Reports dyspnea and palpitations; Deny abdominal pain, fever(s), nausea or vomiting Treatment prior to arrival: aspirin and nitroglycerin Related Data Previous Rx's ?Medication ?Instructions ?Recorded insulin pump cart,automated,BT #5 ea 04/07/23 (Omnipod 5 G6 Pods (Gen 5) subcutaneous cartridge) 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,education paraprofessional,cont #1 ea 04/28/23 (Dexcom G7 Computer System Specialist) Diabetic shoes with 3 sets of #1 ea 07/27/24 inserts insulin aspart U-100 100 unit/mL See Rx Instructions . Route 12/02/24 (3 mL) subcutaneous pen (Novolog .COMPLEX #27 mL FlexPen U-100 Insulin aspart) insulin glargine 100 unit/mL (3 See Rx Instructions .R oute 12/02/24 mL) subcutaneous pen (Lantus .COMPLEX #45 mL Solostar U-100 Insulin) metoprolol succinate 25 mg 25 mg PO DAILY #90 tabs 05/02 tablet,extended release 24 hr 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 sensor ([employer] for [employer] G7 #9 ea 01/27/25 Sensor device) isosorbide mononitrate 30 mg 30 mg PO BID #180 tabs tablet,extended release 24 hr furosemide 40 mg tablet 40 mg PO DAILY #90 ea potassium chloride 20 mEq See Rx Instructions .Route 0 04/29/25 tablet,extended release .COMPLEX #90 tabs empagliflozin 25 mg tablet See Rx Instructions .Route 06/06/25 (Jardiance) .COMPLEX #90 tabs albuterol sulfate 90 mcg/actuation See Rx Instructions .Route 06/13/25 aerosol inhaler .COMPLEX #8.5 grams budesonide-formoterol HFA 160 See Rx Instructions .Rou te 06/13/25 mcg-4.5 mcg/actuation aerosol .COMPLEX #10.2 grams inhaler (Symbicort) gabapentin 300 mg capsule 300 mg PO TID #90 caps 06/13 montelukast 10 mg tablet See Rx Instructions .Route 1 .COMPLEX #90 tabs omeprazole 40 mg capsule,delayed 40 mg PO BID PRN acid reflux #180 06/13/25 release caps sumatriptan succinate 50 mg tablet See Rx Instructions .Route 06/13/25 .COMPLEX PRN Migraine Headache #10 tabs Allergies Allergy/AdvReac Type Severity Reaction Status Date / Time atorvastatin Allergy Severe transaminit Verified 06/20/25 19:06 is ibuprofen Allergy Mild ALGY-Swell Verified 06/20/25 19:06 Lip/Tongue/Throat acetaminophen (From Tylenol) Allergy liver Verified 06/20/25 19:06 reaction diclofenac Allergy ADR-Vomitin Verified 06/20/25 19:06 g ketorolac (From Toradol) Allergy sick Verified 06/20/25 19:06 Review of Systems 2 General: Reports: 10 or more systems reviewed and unremarkable except in HPI and below Const: Denies: fever(s), chills or fatigue Eyes: Denies: change in vision ENMT: Denies: throat pain, ear or mastoid pain or nasal discharge Card: Reports: chest pain and palpitations; Denies: swelling of feet/ankles or lightheadedness Resp: Reports: dyspnea; Denies: productive cough or wheezing GI: Denies: abdominal pain, nausea, vomiting, diarrhea or constipation : Denies: flank pain, difficulty voiding, dysuria or urinary frequency Musc: Denies: neck pain, back pain or joint pain Skin/Breast: Denies: rash Neuro: Reports: dizziness; Denies: headache(s), numbness in extremities or weakness in extremities PFSH ED 2 PFSH: Medical History Diabetic neuropathy Facet arthropathy, 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 Bilateral carpal tunnel syndrome Intellectual disability Bilateral pes planus Chondromalacia, right knee Neutrophilia Leukocytosis BMI 50.0-59.9, adult Benign essential HTN Major depressive disorder, recurrent severe without psychotic features Panic disorder Generalized anxiety disorder Migraine Tobacco use disorder Atypical chest pain Type 2 diabetes mellitus, with long-term current use of insulin Dyslipidemia Asthma Spinal stenosis, thoracic region Morbid obesity with BMI of 60.0-69.9, adult Bilateral chronic knee pain GERD (gastroesophageal reflux disease) Surgical History History of right knee surgery History of lumbar laminectomy History of hysterectomy with unilateral oophorectomy History of cholecystectomy Family History Father CAD (coronary artery disease) Diabetes Hypertension Seizures Hyperlipidemia Lung disease Psychiatric illness Stroke Clotting disorder Family/Other Hyperlipidemia Lung disease Psychiatric illness Stroke Mother Diabetes Hypertension Hyperlipidemia Other Chronic kidney disease (CKD) Denies family history of Dementia Anesthesia complication Social History Smoking and tobacco/nicotine status: current every day tobacco/nicotine user cigarettes Packs smoked per day: 2 Years cigarettes smoked: 25 [ Other cigarette details: 2PPD, onset at 15yo] Second hand smoke exposure: Yes Alcohol intake: former Year of sobriety/quit date alcohol: 2017 Substance/Drug Use: current Substance/Drug use frequency: few times a month Caregiver/support person: Yes Household members: spouse and family Marital status: Current occupational status: disabled Current occupation: disabled Sexually active: Yes Do you think of yourself as: Straight/Heterosexual Current gender identity: Female Special lacey needs: No Agree to transfusion: Yes Female Reproductive History: Para: 1 Physical Exam 2 Const: COMMON NORMALS: patient oriented x3 and no limitations GENERAL APPEARANCE: cooperative and well developed NUTRITIONAL APPEARANCE: obese morbidly obese ORIENTATION/CONSCIOUSNESS: Yes awake, Yes oriented to person, Yes oriented to place and Yes oriented to time OTHER: Anxious/tearful HENMT: COMMON NORMALS: normocephalic, atraumatic and hearing grossly normal bilaterally HEAD & SCALP: normocephalic and atraumatic Eye: COMMON NORMALS: Equal, round and reactive pupils present, EOMs intact bilaterally and conjunctivae normal CONJUNCTIVA: Yes conjunctivae normal P UPIL: Yes Equal, round and reactive pupils present Neck/C-Spine: COMMON NORMALS: full ROM, supple and no JVD Chest: OTHER: Reproducible tenderness to palpation to anterior chest wall Resp: COMMON NORMALS: normal respiratory effort, No retractions, No use of accessory muscles and clear to auscultation bilaterally AUSCULTATION: clear to auscultation bilaterally Cardio: COMMON NORMALS: no JVD, regular rate, regular rhythm, No clicks present (Cardio), No murmurs present (Cardio) and No rub (Cardio) RATE: r egular rate RHYTHM: regular rhythm GI: COMMON NORMALS: Normal to inspection, nondistended, normoactive bowel sounds present, Soft to palpation and non-tender INSPECTION: Yes central obesity AUSCULTATION: Yes normoactive bowel sounds PALPATION: Yes Soft to palpation RECTAL EXAM: deferred Extremity: COMMON NORMALS: normal to inspection, full ROM and capillary refill normal Neuro: COMMON NORMALS: patient oriented x3, moves all extremities, no focal motor deficits and no sensory deficits noted SENSORIUM/ORIENTATION: Yes oriented to person, Yes oriented to place and Yes oriented to time Skin: COMMON NORMALS: no rashes or lesions noted GENERAL SKIN EXAM: no rashes or lesions noted Course 2 Vital Signs: Vital signs: Vital Signs Temperature 98.1 F 06/20/25 18:59 Pulse Rate 78 06/20/25 20:52 Respiratory Rate 12 06/20/25 20:52 Blood Pressure 131/89 06/20/25 20:52 Pulse Oximetry 95 06/20/25 20:52 Oxygen Delivery Me thod Room Air 06/20/25 18:59 MDM - Chest Pain Medical Decision Making This patient [facility] complaining of chest pain, has history of A-fib. No previous history of heart attacks or strokes. Pain was reproducible to palpation on exam to central chest, she had endorsed several other symptoms including shortness of breath and dizziness. She also has a history of anxiety and panic disorders. Vitals have been stable throughout ED course. Delta troponin negative. Chronically has mild leukocytosis, this is unchanged at this time. The rest of her labs are all baseline or normal. EKG showing normal sinus rhythm with no acute segment changes. Chest x-ray negative. Do not suspect this is ACS, she will be allowed discharge home and instructed to follow-up routinely with primary care provider. She agrees with this plan and feels better. Lab Data 06/20/25 18:43 06/20/25 18:43 Radiology Impressions Chest X-Ray 06/20/25 19:18 IMPRESSION: No acute findings. Laboratory Results WBC 13.43 10^3/uL (3.29-11.43) H 06/20/25 18:43 RBC 5.97 10^6/uL (3.85-5.65) H 06/20/25 18:43 Hgb 15.80 g/dL (11.27-16.99) 06/20/25 18:43 Hct 48.2 % (36-47) H 06/20/25 18:43 MCV 80.7 fl (85-98) L 06/20/25 18:43 MCH 26.5 pg (27-33) L 06/20/25 18:43 MCHC 32.8 g/dL (30-55) 06/20/25 18:43 RDW 14.6 % (12.1-15.1) 06/20/25 18:43 Plt Count 331 10^3/cmm (157-399) 06/20/25 18:43 MPV 11.2 fL (7.4-10.4) H 06/20/25 18:43 Neut % (Auto) 75.4 % 06/20/25 18:43 Lymph % (Auto) 15.3 % 06/20/25 18:43 Sabine % (Auto) 7.1 % 06/20/25 18:43 Eos % (Auto) 1.3 % 06/20/25 18:43 Baso % (Auto) 0.4 % 06/20/25 18:43 Neut # (Auto) 10.11 10^3/uL (1.8-7.7) H 06/20/25 18:43 Lymph # (Auto) 2.1 10^3/uL (0.8-4.8) 06/20/25 18:43 Sabine # (Auto) 1.0 10^3/uL (0.2-0.9) H 06/20/25 18:43 Eos # (Auto) 0.2 10^3/uL (0.0-0.8) 06/20/25 18:43 Baso # (Auto) 0.1 10^3/uL (0.0-0.1) 06/20/25 18:43 Nucleated RBC % (auto) 0 % 06/20/25 18:43 Nucleated RBCs # 0.0 /100WBC 06/20/25 18:43 Sodium 135 mmol/L (136-145) L 06/20/25 18:43 Potassium 4.6 mmol/L (3.5-5.1) 06/20/25 18:43 Chloride 100 mmol/L (98-107) 06/20/25 18:43 Carbon Dioxide 20 mmol/L (22-29) L 06/20/25 18:43 Anion Gap 19.6 (5-19) H 06/20/25 18:43 BUN 9 mg/dL (6-20) 06/20/25 18:43 Creatinine 0.7 mg/dL (0.5-0.9) 06/20/25 18:43 GFR Calculation 94.2 mL/min (90-130) 06/20/25 18:43 Glucose 235 mg/dL (65-115) H 06/20/25 18:43 Calculated Osmolality 286 mOsm/kg (285-295) 06/20/25 18:43 Calcium 9.2 mg/dL (8.5-10.5) 06/20/25 18:43 Total Bilirubin 0.5 mg/dL (0.15-1.2) 06/20/25 18:43 AST 28 U/L (0-32) 06/20/25 18:43 ALT 43 U/L (0-33) H 06/20/25 18:43 Alkaline Phosphatase 120 U/L (35-105) H 06/20/25 18:43 Troponin T Baseline < 6 ng/L (0-10) 06/20/25 18:43 Troponin T 120 Minute < 6.0 ng/L (0-10) 06/20/25 20:55 Delta Troponin T 0 ABS# (0-10) 06/20/25 20:55 Total Protein 7.5 g/dL (6.6-8.7) 06/20/25 18:43 Albumin 4.4 g/dL (3.5-5.2) 06/20/25 18:43 Globulin 3.1 g/dL (1.3-4.6) 06/20/25 18:43 Lipase 15 U/L (13-60) 06/20/25 18:43 All radiology interpretation(s) finalized by discharge Discharge Plan Discharge Patient Disposition: Home Clinical Impression: Chest pain Condition: Stable Prescriptions: No Action (DME) Omnipod 5 G6 Pods (Gen 5) Cartridge See Rx Instructions .Route Qty: 5 2RF Rx Instructions: As directed (DME) Diabetic shoes with 3 sets of inserts See Rx Instructions .Route .MEDSUPPLY Qty: 1 0RF Rx Instructions: As directed HOME insulin glargine [Lantus Solostar U-100 Insulin] 100 unit/mL (3 mL) insulin pen See Rx Instructions .ROUTE .COMPLEX Qty: 45 3RF Dose Instruction: inject 50 units (0.5ml) SUBCUTANEOUSLY EVERY DAY Rx Instructions: inject 50 units (0.5ml) SUBCUTANEOUSLY EVERY DAY insulin aspart U-100 [Novolog FlexPen U-100 Insulin] 100 unit/mL (3 mL) insulin pen See Rx Instructions .ROUTE .COMPLEX Qty: 27 3RF Dose Instruction: inject 10 units SUBCUTANEOUSLY THREE TIMES DAILY Rx Instructions: start at 5 units a day then go to 10 units SUBCUTANEOUSLY THREE TIMES DAILY metoprolol succinate 25 mg tablet extended release 24 hr 25 mg PO DAILY Qty: 90 3RF albuterol sulfate 90 mcg/actuation HFA aerosol inhaler See Rx Instructions .ROUTE .COMPLEX Qty: 8.5 5RF Dose Instruction: inhale TWO puffs BY MOUTH EVERY 6 HOURS as needed for SHORTNESS OF BREATH or wheezing Rx Instructions: inhale TWO puffs BY MOUTH EVERY 6 HOURS as needed for SHORTNESS OF BREATH or wheezing budesonide-formoterol [Symbicort] 160-4.5 mcg/actuation HFA aerosol inhaler See Rx Instructions .ROUTE .COMPLEX Qty: 10.2 2RF Dose Instruction: inhale TWO puffs BY MOUTH TWICE DAILY FOR copd Rx Instructions: inhale TWO puffs BY MOUTH TWICE DAILY FOR copd gabapentin 300 mg capsule 300 mg PO TID Qty: 90 2RF montelukast 10 mg tablet See Rx Instructions .ROUTE .COMPLEX Qty: 90 1RF Dose Instruction: TAKE 1 TABLET BY MOUTH EVERY DAY Rx Instructions: TAKE 1 TABLET BY MOUTH EVERY DAY omeprazole 40 mg capsule,delayed release(DR/EC) 40 mg PO BID PRN (Reason: acid reflux) Qty: 180 0RF sumatriptan succinate 50 mg tablet See Rx Instructions .ROUTE .COMPLEX PRN (Reason: Migraine Headache) Qty: 10 1RF Rx Instructions: TAKE 1 TABLET BY MOUTH EVERY 2 HOURS NEEDED FOR MIGRAINE HEADACHE. MAX OF FOUR TABLETS PER 24 HOURS furosemide 40 mg tablet 40 mg PO DAILY Qty: 90 0RF (DME) Dexcom G7 Computer System Specialist Misc See Rx Instructions .Route Qty: 1 0RF Rx Instructions: As directed (DME) Dexcom G7 Sensor Device See Rx Instructions .Route Qty: 9 3RF Rx Instructions: As directed isosorbide mononitrate 30 mg tablet extended release 24 hr 30 mg PO BID Qty: 180 3RF potassium chloride 20 mEq tablet extended release See Rx Instructions .ROUTE .COMPLEX Qty: 90 1RF Dose Instruction: TAKE 1 TABLET BY MOUTH EVERY DAY Rx Instructions: TAKE 1 TABLET BY MOUTH EVERY DAY Jardiance 25 mg tablet See Rx Instructions .ROUTE .COMPLEX Qty: 90 0RF Dose Instruction: TAKE 1 TABLET BY MOUTH DAILY Rx Instructions: TAKE 1 TABLET BY MOUTH DAILY Discharge Orders: Discharge ED (Routine); Ordered 06/20/25 Ordered By: Christiano Saenz Referrals: Lory Olmstead MD [Primary Care Provider, Family Practice] Patient Instructions: Patient Portal & Tray Instructions Activity Restrictions/Additional Instructions: Chest Pain Discharge Instructions You were evaluated for chest pain in the emergency department. All of your tests?including your heart tracing (ECG), blood work (including troponin), and chest X-ray?were normal. This means your risk of a serious heart problem, like a heart attack, is very low. What to expect: Most chest pain is not caused by a heart problem. You may have muscle strain, acid reflux, anxiety, or another non-cardiac cause. If your pain continues or you have questions, please follow up with your primary care provider within the next 1-2 weeks for further evaluation and support. Return to the emergency department immediately if you experience any of the following: - Chest pain that is severe, gets worse, or lasts more than a few minutes - Chest pain with sweating, nausea, vomiting, or shortness of breath - Fainting or feeling like you might pass out - Pain spreading to your arm, neck, jaw, or back - Fast or irregular heartbeat - Weakness, numbness, or trouble speaking - Any new or concerning symptoms Follow-up: Schedule an appointment with your primary care provider within 1-2 weeks, or sooner if you have ongoing symptoms. Bring these instructions to your visit. Activity and medications: You may return to normal activities as tolerated. Take your usual medications unless told otherwise. If you were given any new prescriptions, follow the instructions provided. If you have any questions or concerns before your follow-up, contact your doctor or return to the emergency department. Thank you for trusting us with your care. Print Language: Hebrew Coding Level of Care Code ED Manager Transfusion for Leonela Escobedo Heart Score HEART Score Components History: Slightly Suspicous EKG: Normal Age: Less than 45 yrs Risk Factors: 1 or 2 Risk Factors Troponin: Baseline Trop <16 ng/L HEART Score RESULT HEART Score: 1
[2025-06-20 19:40] LABS: Troponin(5th) Baseline < 6 ng/L (0-10)
[2025-06-20] MEDS: lidocaine 2% viscous 15 ML, aluminum-mag hydrox-simethicon 30 ML, sucralfate oral liq 1 GM PO (19:49)
[2025-06-20 19:50] LABS: Alanine Aminotransferase 43 U/L (0-33); Albumin Level 4.4 g/dL (3.5-5.2); Alkaline Phosphatase 120 U/L (35-105); Anion Gap 19.6 (5-19); Aspartate Amino Transferase 28 U/L (0-32); Blood Urea Nitrogen 9 mg/dL (6-20); Calcium 9.2 mg/dL (8.5-10.5); Carbon Dioxide 20 mmol/L (22-29); Chloride 100 mmol/L (98-107); Creatinine Clr Calc Pharmacy 148.5369; Globulin 3.1 g/dL (1.3-4.6); Glucose 235 mg/dL (65-115); Lipase 15 U/L (13-60); Osmolality Calculated 286 mOsm/kg (285-295); Potassium 4.6 mmol/L (3.5-5.1); Sodium 135 mmol/L (136-145); Total Protein 7.5 g/dL (6.6-8.7)
[2025-06-20 20:00] VITALS: BP 138/81; PULSE 82; RESP 24; O2SAT 93
[2025-06-20 20:52] VITALS: BP 131/89; PULSE 78; RESP 12; O2SAT 95
[2025-06-20 21:23] LABS: Troponin 5 2HR < 6.0 ng/L (0-10); Troponin 5 2HR Delta 0 ABS# (0-10)
[2025-06-20] MEDS: fentaNYL 50 mcg/mL INJ 2mL 25 MCG IVP (21:55)
[2025-06-20 22:01] VITALS: BP 134/97; PULSE 78; O2SAT 95
== END 2025-06-20 22:04 | disposition home or self-care (01) ==
PROVIDERS: Emergency Provider Physician Assistant; PCP Family Medicine
DX: R07.9 Chest pain, unspecified (principal); F41.9 Anxiety disorder, unspecified; I10 Essential (primary) hypertension; F41.0 Panic disorder [episodic paroxysmal anxiety]
CPT/HCPCS: 36415; 71045; 80053; 83690; 84484; 85025; 93005; 96374; 96376; 99285; J3010; J9999

== ENCOUNTER → 2025-06-23 16:07 | Outpatient (BNVA) | payer MEDICARE, MEDICAID, SELFPAY | PROVIDERS: PCP Family Medicine; Visit Provider Orthopaedic Surgery | DX: M48.04 Spinal stenosis, thoracic region (principal); M43.16 Spondylolisthesis, lumbar region; M54.2 Cervicalgia | CPT/HCPCS: 72050; 72072; 99213 ==

== ENCOUNTER 2025-07-08 12:35 | Outpatient (CLI) | payer MEDICARE, MEDICAID, SELFPAY ==
--- NOTE | 2025-07-08 13:45 | MR_ITS ---
WS: [id number] MRI CERVICAL SPINE NONCONTRAST TECHNIQUE: Sagittal T1, T2 and STIR imaging. Axial T2, gradient, and fiesta imaging. CLINICAL INFORMATION: chronic neck pain COMPARISON: CT cervical 04/29/2025 FINDINGS: Straightening of the normal cervical lordosis. Cord signal is normal. Small disc protrusion C5-C6 and C6-C7. C2-C3: Normal. C3-C4: Normal. C4-C5: Tiny central protrusion. Mild facet arthropathy. Spinal canal and foramen are patent. C5-C6: Mild disc bulging. Mild facet arthropathy. Slight contact of the cervical cord. Mild central canal stenosis. Mild LEFT foraminal narrowing. C6-C7: Shallow RIGHT paracentral disc osteophyte protrusion. Slight contact of the RIGHT ventral cervical cord. Mild central canal stenosis. Mild to moderate LEFT bony foraminal narrowing. Uncovertebral joint hypertrophy. C7-T1: Mild LEFT bony foraminal narrowing. Mild facet arthropathy. Spinal canal is patent. Uncovertebral joint hypertrophy. Visualized brain stem structures: Normal. Prevertebral soft tissues: Normal. MR/MR cervical spin wo con* [id number] IMPRESSION: 1. Straightening of the normal cervical lordosis. Cord signal is normal. 2. Small disc osteophyte protrusions C5-C6 and C6-C7 with mild central canal s tenosis. Slight indentation on the RIGHT ventral cervical cord at C6-7. 3. Mild to moderate LEFT bony foraminal narrowing C6-7.
--- NOTE | 2025-07-08 14:30 | MR_ITS ---
WS: [id number] MRI THORACIC SPINE WITHOUT CONTRAST TECHNIQUE: Sagittal T1, T2 and STIR imaging. Axial T2 imaging. Noncontrast imaging obtained. CLINICAL INFORMATION: Mid back pain COMPARISON: MRI 12/10/2023 FINDINGS: Some images degraded due to motion artifact and body habitus. Again seen is moderate central canal stenosis at T10-11 similar to previous. Impingement with flattening of the thoracic cord with associated myelomalacia. Mild bilateral bony foraminal narrowing T10-11. Findings are similar to previous. Associated facet arthropathy with ligamentum flavum hypertrophy at T10-11. Stable tiny RIGHT paracentral protrusion at T4-5 with slight contact of the thecal sac. Tiny shallow central protrusion T5-T6 Small RIGHT paracentral protrusion T7-T8 Stable small RIGHT paracentral protrusion T8-T9 with slight indentation on the thoracic cord. Normal paravertebral soft tissues. Adrenal glands are normal. Normal caliber descending thoracic aorta. MR/MR thoracic spin wo con* [id number] IMPRESSION: 1. Moderate central stenosis T10-11 stable compared to previous with slight co ntact of the thoracic cord. 2. Stable RIGHT paracentral protrusion at T8-T9 with mild central canal stenos is and slight indentation on the thoracic cord. 3. Moderate facet arthropathy worse at T9-T10 and T10-11. 4. Mild to moderate bony foraminal narrowing worse
== END 2025-07-08 12:36 | disposition home or self-care (01) ==
LOC: RAD 12:36
PROVIDERS: PCP Family Medicine; Visit Provider Orthopaedic Surgery
DX: M48.04 Spinal stenosis, thoracic region (principal); M51.24 Other intervertebral disc displacement, thoracic region; M47.894 Other spondylosis, thoracic region; M25.78 Osteophyte, vertebrae; M47.892 Other spondylosis, cervical region; M48.02 Spinal stenosis, cervical region; M50.322 Other cervical disc degeneration at C5-C6 level
CPT/HCPCS: 72141; 72146

== ENCOUNTER → 2025-07-21 13:20 | Outpatient (BNVA) | payer MEDICARE, MEDICAID, SELFPAY | PROVIDERS: PCP Family Medicine; Visit Provider Orthopaedic Surgery | DX: Z01.818 Encounter for other preprocedural examination (principal); M48.04 Spinal stenosis, thoracic region | CPT/HCPCS: 36415; 80053; 81001; 85025; 99214 ==

== ENCOUNTER 2025-08-08 06:10 | Day surgery (SDC) | payer MEDICARE, MEDICAID, SELFPAY ==
[2025-08-08] VITALS (16 sets, daily range): BP systolic 127–180; BP diastolic 87–118; PULSE 73–123; RESP 18–24; TEMP 36.2–36.5; O2SAT 88–99; BMI 52.7
[2025-08-08] MEDS: fentaNYL 50 mcg/mL INJ 2mL IVP ×3 (09:15→13:10)
--- NOTE | 2025-08-08 09:34 | ANES.PREANE2 ---
Pre-Anesthetic Assessment Height/Weight: Height 1.6 m Weight 135.171 kg Temp Pulse Resp BP Pulse Ox O2 Del Method 97.7 F 73 18 154/101 97 Room Air 08/08/25 08:01 08/08/25 08:01 08/08/25 09:15 08/08/25 08:01 08/08/25 09:15 08/08/25 08:04 Preop Diagnosis: Thoracic stenosis with myelopathy Operation Date: 08/08/25 10:30 Proposed Procedures p Thoracic Decompression-Revision T10-11 on left side(Not Applicable) - Steve Rios, DO Familial anesthetic complications: None Was Beta Sarah taken within 24 hours: N/A Was Clonidine taken within 24 hours: N/A Last intake: Intake Last Liquid Date 08/07/25 Last Liquid Time 23:00 Last Solid Date 08/07/25 Last Solid Time 16:00 Social Tobacco and No alcohol Exam alert, oriented x 3, clear to auscultation bilaterally and regular rate & rhythm Airway Mallampati: Class IV Pulmonary Asthma CV/HEM Stable Angina and Hypertension GI Gastroesophageal Reflux Disease Metabolic Diabetes Mellitus and Morbid Obesity Anesthetic Plan ASA status: 4 Anesthesia: General Risk of > 500 ml blood loss (7ml/kg in children): No Medications/Allergies Home Medications ?Medication ?Instructions ?Recorded ?Confirmed ?Last Taken ?Type insulin pump cart,automated,BT #5 ea 04/07/23 08/03/25 Unknown Rx (Omnipod 5 G6 Pods (Gen 5) subcutaneous cartridge) 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,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,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 #1 ea 04/28/23 08/03/25 Unknown Rx (Dexcom G7 [employer]) Diabetic shoes with 3 sets of #1 ea 07/27/24 08/03/25 Unknown Rx inserts insulin aspart U-100 100 unit/mL See Rx Instructions .Route 12/02/24 08/03/25 08/06/25 Rx (3 mL) subcutaneous pen (Novolog .COMPLEX #27 mL FlexPen U-100 Insulin aspart) insulin glargine 100 unit/mL (3 See Rx Instructions .Route 12/02/24 08/03/25 08/07/25 Rx mL) subcutaneous pen (Lantus .COMPLEX #45 mL Solostar U-100 Insulin) metoprolol succinate 25 mg 25 mg PO DAILY #90 tabs 12/14/24 08/03/25 08/07/25 Rx tablet,extended release 24 hr 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 sensor (Dexcom G7 #9 ea 01/27/25 08/03/25 Unknown Rx Sensor device) isosorbide mononitrate 30 mg 30 mg PO BID #180 tabs 03/11/25 08/03/25 08/07/25 Rx tablet,extended release 24 hr gabapentin 300 mg capsule 300 mg PO TID #90 caps 06/13/25 08/03/25 08/07/25 Rx omeprazole 40 mg capsule,delayed 40 mg PO BID PRN acid reflux #180 06/13/25 08/03/25 08/07/25 Rx release caps furosemide 40 mg tablet 40 mg PO DAILY #90 ea 07/07/25 08/03/25 08/07/25 Rx albuterol sulfate 90 mcg/actuation 180 mcg inhalation PRN PRN SOB 08/03/25 08/03/25 08/07/25 History aerosol inhaler budesonide-formoterol HFA 160 2 puff inhalation 2XD copd 08/03/25 08/03/25 08/07/24 History mcg-4.5 mcg/actuation aerosol inhaler (Symbicort) empagliflozin 25 mg tablet 25 mg PO 1XD 08/03/25 08/03/25 08/07/25 History (Jardiance) montelukast 10 mg tablet 10 mg PO 1XD 08/03/25 08/03/25 08/07/25 History (Singulair) potassium chloride 20 mEq 20 meq PO 1XD 08/03/25 08/03/25 08/07/25 History tablet,extended release sumatriptan succinate 50 mg tablet See Rx Instructions .Route 08/07/25 Unknown Rx .COMPLEX #10 ea Allergies Allergy/AdvReac Type Severity Reaction Status Date / Time atorvastatin Allergy Severe transaminit Verified 08/03/25 11:57 is ibuprofen Allergy Mild ALGY-Swell Verified 08/03/25 11:57 Lip/Tongue/Throat acetaminophen (From Tylenol) Allergy liver Verified 08/03/25 11:57 reaction diclofenac Allergy ADR-Vomitin Verified 08/03/25 11:57 g ketorolac (From Toradol) Allergy sick Verified 08/03/25 11:57 Current Medications Generic Name Dose Route Start Last Admin Trade Name Freq PRN Reason Stop Dose Admin Fentanyl 50 mcg 08/08/25 07:44 08/08/25 09:15 Fentanyl 50 Mcg/Ml Inj 2ml IVP 50 mcg Q10M PRN Administration Preop Pain PFSH Anesthesia Medical History Diabetic neuropathy Facet arthropathy, 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 Bilateral carpal tunnel syndrome Intellectual disability Bilateral pes planus Chondromalacia, right knee Neutrophilia Leukocytosis BMI 50.0-59.9, adult Benign essential HTN Major depressive disorder, recurrent severe without psychotic features Panic disorder Generalized anxiety disorder Migraine Tobacco use disorder Atypical chest pain Type 2 diabetes mellitus, with long-term current use of insulin Dyslipidemia Asthma Spinal stenosis, thoracic region Morbid obesity with BMI of 60.0-69.9, adult Bilateral chronic knee pain GERD (gastroesophageal reflux disease) Surgical History History of right knee surgery History of lumbar laminectomy History of hysterectomy with unilateral oophorectomy History of cholecystectomy Family History Father CAD (coronary artery disease) Diabetes Hypertension Seizures Hyperlipidemia Lung disease Psychiatric illness Stroke Clotting disorder Family/Other Hyperlipidemia Lung disease Psychiatric illness Stroke Mother Diabetes Hypertension Hyperlipidemia Other Chronic kidney disease (CKD) Denies family history of Dementia Anesthesia complication Social History Smoking and tobacco/nicotine status: current every day tobacco/nicotine user cigarettes Packs smoked per day: 2 Years cigarettes smoked: 25 [ Other cigarette details: 2PPD, onset at 15yo] Second hand smoke exposure: Yes Alcohol intake: former Year of sobriety/quit date alcohol: 2017 Substance/Drug Use: current Substance/Drug use frequency: few times a month Caregiver/support person: Yes Household members: spouse and family Marital status: Current occupational status: disabled Current occupation: disabled Sexually active: Yes Do you think of yourself as: Straight/Heterosexual Current gender identity: Female Special lacey needs: No Agree to transfusion: Yes Female Reproductive History Para: 1 Data Anesthesia Cardiac Studies: Echocardiogram 04/14/25 Sestamibi Stress Test (Cardiology) 01/28/22
--- NOTE | 2025-08-08 11:02 | W.PM.OPSUD ---
Surgery/Procedure H&P Update DATE OF PROCEDURE: August 08, 2025 DATE H&P PERFORMED: 07/21/25 H&P UPDATE INFORMATION: I have reviewed H&P completed within last 30 days, I have examined patient prior to procedure and No changes to prior documentation PREOP DIAGNOSIS: Thoracic stenosis with myelopathy PLANNED PROCEDURE: Operation Date: 08/08/25 10:30 Proposed Procedures p Thoracic Decompression-Revision T10-11 on left side(Not Applicable) - Steve Rios DO
[2025-08-08] MEDS: ceFAZolin 3,000 MG in sodium chloride 0.9% (plus) 100 ML 200 MG IV (11:30)
[2025-08-08] MEDS: lidocaine-epi 1% 20 mL INJ INJECTION (11:57)
--- NOTE | 2025-08-08 12:33 | PM.OP ---
Operative Report Date of procedure: August 08, 2025 Pre-op diagnosis: Thoracic stenosis with myelopathy Post-op diagnosis: same Procedure done: T10/11 laminectomy with partial facetectomy Surgeon: Steve Rios DO Estimated blood loss (mL): 5 Procedure: T10/11 laminectomy with partial facetectomy Patient is brought to the operative suite. After undergoing anesthesia they are placed in the prone position. All areas of impingement are well padded. Patient is then prepped and draped in the normal sterile fashion. A skin incision is made over the T10/11 level. This is confirmed under c-arm guidance. A series of dilators are passed and the tubular retractor is docked on the T10 lamina. A bovie is used to clear the soft tissue off the lamina and the T10/11 facet joint. A high speed иван is then used to perform the laminectomy and take down the medial aspect of the T10/11 facet joint. A kerrison rongeure was then used to take down the remaining lamina and smooth the edge of the laminectomy up to the point where the ligamentum flavum attaches. Attention was then brought to the medial aspect of the facet joint. The remaining medial aspect of the superior and inferior aspect of the facet joint were taken down with the kerrison from the pedicle of T10 to T11. The facet joint had significant hypertrophy. Attention was then brought to the Ligamentum Flavum. The ligament was taken down from the lamina of T10 to T11 and out medially to the remaining facet joint. The ligament was thick. The dura was then exposed. The dura was in good repair. The T10 nerve was then traced with a curette out the T10-11 foramen and found to be adequately decompressed. The T11 nerve was traced with a curette around the T11 pedicle. The lateral recess was opened with a kerrison helping to further decompress the T11 nerve. Wound is then irrigated copiously with saline and surgiflo is used to stop any bleeding. The tubular retractor is removed and the wound is closed with vicryl and monocryl suture. Steri strips were applied. A sterile dressing is then placed. Patient was then placed in the supine position and transferred to the PACU in stable condition.
[2025-08-08] MEDS: metoprolol tartrate 1 mg/1 mL SDV 5 mL 5 MG (12:50)
[2025-08-08] MEDS: oxyCODONE 5 mg IR Tab/Cap PO (13:48)
--- NOTE | 2025-08-08 14:39 | ANE.PACU2 ---
Inpatient post-anesthesia follow up: Airway intact: Yes Vital signs: Temperature 97.2 F Pulse Rate 92 Respiratory Rate 18 Blood Pressure 156/101 Pulse Oximetry 96 Oxygen Delivery Me thod Room Air Oxygen Flow Rate 10 Fraction of Inspir ed Oxygen Hydration adequate: Yes Nausea and vomiting: No Pain level: 1 Mental status: Baseline
--- NOTE | 2025-08-08 15:51 | XR_ITS ---
WS: [id number] Exam: XR thoracic spine 2V [id number] Date/Time of Exam: 08/08/2025 3:51 PM Reason For Exam: OR PICS Single AP C arm image of the lower thoracic spine is submitted. The image was obtained for preoperative localization purposes.
== END 2025-08-08 14:29 | disposition home or self-care (01) ==
PROVIDERS: PCP Family Medicine; Visit Provider Orthopaedic Surgery
PROC: (CPT 22612; principal; 2025-08-08 10:20)
DX: M48.04 Spinal stenosis, thoracic region (principal); G95.9 Disease of spinal cord, unspecified; J45.909 Unspecified asthma, uncomplicated; E11.9 Type 2 diabetes mellitus without complications; I20.89 Other forms of angina pectoris; I10 Essential (primary) hypertension; K21.9 Gastro-esophageal reflux disease without esophagitis; E66.01 Morbid (severe) obesity due to excess calories; Z68.43 Body mass index [BMI] 50.0-59.9, adult; Z79.4 Long term (current) use of insulin; E11.40 Type 2 diabetes mellitus with diabetic neuropathy, unspecified; F33.9 Major depressive disorder, recurrent, unspecified; F41.9 Anxiety disorder, unspecified; E78.5 Hyperlipidemia, unspecified; F17.210 Nicotine dependence, cigarettes, uncomplicated
CPT/HCPCS: 63046; 36416; 72070; 76000; 82962; A4649; J0690; J1100; J1200; J2250; J2405; J2704; J3010; J3490; J7030; J9999

== ENCOUNTER 2025-08-15 11:56 | Emergency (ER) | payer MEDICARE, MEDICAID, SELFPAY ==
[2025-08-15 12:00] VITALS: BP 158/102; PULSE 83; TEMP 37; O2SAT 97; BMI 52.7
--- NOTE | 2025-08-15 12:25 | W.ED.SKABFB ---
HPI - Skin/Abscess/Foreign Bdy General: Chief complaint: Skin/Abscess/Foreign Body Stated complaint: 1 week post op back surg, opened up last night Time Seen by Provider: 08/15/25 12:18 Source: patient Mode of arrival: ambulatory Limitations: no limitations History of Present Illness: 40-year-old female who had had a T10-11 laminectomy a week ago. She states she has had some slight drainage from her incision and a small dehiscence. She denies any purulent material denies any pain denies any fevers denies any worse improved factors. Related Data Home Medications ?Medication ?Instructions ?Recorded ?Confirmed albuterol sulfate 90 mcg/actuation 180 mcg inhalation PRN PRN SOB 08/03/25 08/03/25 aerosol inhaler budesonide-formoterol HFA 160 2 puff inhalation 2XD copd 08/03/25 08/03/25 mcg-4.5 mcg/actuation aerosol inhaler (Symbicort) empagliflozin 25 mg tablet 25 mg PO 1XD 08/03/25 08/03/25 (Jardiance) montelukast 10 mg tablet 10 mg PO 1XD 08/03/25 08/03/25 (Singulair) potassium chloride 20 mEq 20 meq PO 1XD 08/03/25 08/03/25 tablet,extended release Previous Rx's ?Medication ?Instructions ?Recorded insulin pump cart,automated,BT #5 ea 04/07/23 (Omnipod 5 G6 Pods (Gen 5) subcutaneous cartridge) 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,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 medicine medical 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,cont #1 ea 04/28/23 (Dexcom G7 Selenium Plant Operator) Diabetic shoes with 3 sets of #1 ea 07/27/24 inserts insulin aspart U-100 100 unit/mL See Rx Instructions .Route 12/02/24 (3 mL) subcutaneous pen (Novolog .COMPLEX #27 mL FlexPen U-100 Insulin aspart) insulin glargine 100 unit/mL (3 See Rx Instructions .Route 12/02/24 mL) subcutaneous pen (Lantus .COMPLEX #45 mL Solostar U-100 Insulin) metoprolol succinate 25 mg 25 mg PO DAILY #90 tabs 12/14/24 tablet,extended release 24 hr 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 sensor (Dexcom G7 #9 ea 01/27/25 Sensor device) isosorbide mononitrate 30 mg 30 mg PO BID #180 tabs 03/11/25 tablet,extended release 24 hr gabapentin 300 mg capsule 300 mg PO TID #90 caps 06/13/25 omeprazole 40 mg capsule,delayed 40 mg PO BID PRN acid reflux #180 06/13/25 release caps furosemide 40 mg tablet 40 mg PO DAILY #90 ea 07/07/25 sumatriptan succinate 50 mg tablet See Rx Instructions .Route 08/07/25 .COMPLEX #10 ea oxycodone 5 mg tablet 5 mg PO Q4H PRN pain 7 days #42 08/15/25 tabs Allergies Allergy/AdvReac Type Severity Reaction Status Date / Time atorvastatin Allergy Severe transaminit Verified 08/15/25 12:06 is ibuprofen Allergy Mild ALGY-Swell Verified 08/15/25 12:06 Lip/Tongue/Throat acetaminophen (From Tylenol) Allergy liver Verified 08/15/25 12:06 reaction diclofenac Allergy ADR-Vomitin Verified 08/15/25 12:06 g ketorolac (From Toradol) Allergy sick Verified 08/15/25 12:06 PFSH ED PFSH: Medical History Diabetic neuropathy Facet arthropathy, 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 Bilateral carpal tunnel syndrome Intellectual disability Bilateral pes planus Chondromalacia, right knee Neutrophilia Leukocytosis BMI 50.0-59.9, adult Benign essential HTN Major depressive disorder, recurrent severe without psychotic features Panic disorder Generalized anxiety disorder Migraine Tobacco use disorder Atypical chest pain Type 2 diabetes mellitus, with long-term current use of insulin Dyslipidemia Asthma Spinal stenosis, thoracic region Morbid obesity with BMI of 60.0-69.9, adult Bilateral chronic knee pain GERD (gastroesophageal reflux disease) Surgical History History of right knee surgery History of lumbar laminectomy History of hysterectomy with unilateral oophorectomy History of cholecystectomy Family History Father CAD (coronary artery disease) Diabetes Hypertension Seizures Hyperlipidemia Lung disease Psychiatric illness Stroke Clotting disorder Family/Other Hyperlipidemia Lung disease Psychiatric illness Stroke Mother Diabetes Hypertension Hyperlipidemia Other Chronic kidney disease (CKD) Denies family history of Dementia Anesthesia complication Social History Smoking and tobacco/nicotine status: current every day tobacco/nicotine user cigarettes Packs smoked per day: 2 Years cigarettes smoked: 25 [ Other cigarette details: 2PPD, onset at 15yo] Second hand smoke exposure: Yes Alcohol intake: former Year of sobriety/quit date alcohol: 2017 Substance/Drug Use: current Substance/Drug use frequency: few times a month Caregiver/support person: Yes Household members: spouse and family Marital status: Current occupational status: disabled Current occupation: disabled Sexually active: Yes Do you think of yourself as: Straight/Heterosexual Current gender identity: Female Special lacey needs: No Agree to transfusion: Yes Female Reproductive History: Para: 1 Physical Exam Const: COMMON NORMALS: no acute distress, patient oriented x3 and healthy appearing HENMT: COMMON NORMALS: normocephalic and atraumatic HEAD & SCALP: normocephalic and atraumatic Neck/C-Spine: COMMON NORMALS: full ROM and supple Chest: COMMONS NORMALS: normal inspection of the chest Resp: COMMON NORMALS: normal respiratory effort Cardio: COMMON NORMALS: regular rate RATE: regular rate Back/Pelvis: OTHER: Incision noted thoracic spine is clean dry no signs of cellulitis very mild wound dehiscence Extremity: COMMON NORMALS: normal to inspection and full ROM Neuro: COMMON NORMALS: patient oriented x3, moves all extremities and no focal motor deficits Psych: COMMON NORMALS: mental status grossly normal, Normal thought process present and cooperative THOUGHT PROCESS: Normal thought process present Skin: COMMON NORMALS: no rashes or lesions noted and no wounds GENERAL SKIN EXAM: no rashes or lesions noted Course Vital Signs: Vital signs: Vital Signs Temperature 98.6 F 08/15/25 12:00 Pulse Rate 83 08/15/25 12:00 Blood Pressure 158/102 08/15/25 12:00 Pulse Oximetry 97 08/15/25 12:00 Oxygen Delivery Me thod Room Air 08/15/25 12:00 MDM - Skin/Abscess/Foreign Bdy Medicial Decision Making Patient presents here for wound check after thoracic laminectomy. Her incision here has no signs of cellulitis no erythema only has a clear drainage is noted very mild wound dehiscence. Does not require any antibiotics at this time she has an appointment with her spinal surgeon on she is to follow-up and return if worsening. Medical Records I reviewed the patient's medical records. No radiology studies performed this visit Discharge Plan Discharge Patient Disposition: Home Clinical Impression: Dehiscence of wound Condition: Stable Prescriptions: No Action (DME) Omnipod 5 G6 Pods (Gen 5) Cartridge See Rx Instructions .Route Qty: 5 2RF Rx Instructions: As directed (DME) Diabetic shoes with 3 sets of inserts See Rx Instructions .Route .MEDSUPPLY Qty: 1 0RF Rx Instructions: As directed HOME insulin glargine [Lantus Solostar U-100 Insulin] 100 unit/mL (3 mL) insulin pen See Rx Instructions .ROUTE .COMPLEX Qty: 45 3RF Dose Instruction: inject 50 units (0.5ml) SUBCUTANEOUSLY EVERY DAY Rx Instructions: inject 50 units (0.5ml) SUBCUTANEOUSLY EVERY DAY insulin aspart U-100 [Novolog FlexPen U-100 Insulin] 100 unit/mL (3 mL) insulin pen See Rx Instructions .ROUTE .COMPLEX Qty: 27 3RF Dose Instruction: inject 10 units SUBCUTANEOUSLY THREE TIMES DAILY Rx Instructions: start at 5 units a day then go to 10 units SUBCUTANEOUSLY THREE TIMES DAILY metoprolol succinate 25 mg tablet extended release 24 hr 25 mg PO DAILY Qty: 90 3RF gabapentin 300 mg capsule 300 mg PO TID Qty: 90 2RF omeprazole 40 mg capsule,delayed release(DR/EC) 40 mg PO BID PRN (Reason: acid reflux) Qty: 180 0RF (DME) Dexcom G7 Selenium Plant Operator Misc See Rx Instructions .Route Qty: 1 0RF Rx Instructions: As directed (DME) Dexcom G7 Sensor Device See Rx Instructions .Route Qty: 9 3RF Rx Instructions: As directed isosorbide mononitrate 30 mg tablet extended release 24 hr 30 mg PO BID Qty: 180 3RF furosemide 40 mg tablet 40 mg PO DAILY Qty: 90 3RF sumatriptan succinate 50 mg tablet See Rx Instructions .ROUTE .COMPLEX Qty: 10 1RF Dose Instruction: TAKE 1 TABLET BY MOUTH EVERY 2 HOURS NEEDED FOR migraine HEADACHE. max of FOUR tablets PER 24 hours Rx Instructions: TAKE 1 TABLET BY MOUTH EVERY 2 HOURS NEEDED FOR migraine HEADACHE. max of FOUR tablets PER 24 hours oxycodone 5 mg tablet 5 mg PO Q4H PRN (Reason: pain) 7 Days Qty: 42 0RF albuterol sulfate 90 mcg/actuation HFA aerosol inhaler 180 mcg inhalation PRN PRN (Reason: SOB) budesonide-formoterol [Symbicort] 160-4.5 mcg/actuation HFA aerosol inhaler 2 puff inhalation 2XD Jardiance 25 mg tablet 25 mg PO 1XD montelukast [Singulair] 10 mg tablet 10 mg PO 1XD potassium chloride 20 mEq tablet extended release 20 meq PO 1XD Discharge Orders: Discharge ED (Routine); Ordered 08/15/25 Ordered By: Kat Yang Referrals: Lory Olmstead MD [Primary Care Provider, [facility]] Discharge Diet: Advance as tolerated Discharge Activity: Resume usual activity Patient Instructions: Wound Dehiscence (ED) Print Language: Korean Coding Level of Care Code ED Bottom Painter for Leonela Escobedo
[2025-08-15 12:35] VITALS: BP 154/81; PULSE 86; O2SAT 96
== END 2025-08-15 12:36 | disposition home or self-care (01) ==
PROVIDERS: Emergency Provider Emergency Medicine; PCP Family Medicine
DX: T81.30XA Disruption of wound, unspecified, initial encounter (principal); X58.XXXA Exposure to other specified factors, initial encounter; Z79.4 Long term (current) use of insulin; F17.210 Nicotine dependence, cigarettes, uncomplicated; I10 Essential (primary) hypertension; E11.40 Type 2 diabetes mellitus with diabetic neuropathy, unspecified
CPT/HCPCS: 99282

== ENCOUNTER → 2025-08-23 14:47 | Outpatient (BNVA) | payer MEDICARE, MEDICAID, SELFPAY | PROVIDERS: PCP Family Medicine; Visit Provider Orthopaedic Surgery | DX: M48.04 Spinal stenosis, thoracic region (principal); Z98.890 Other specified postprocedural states | CPT/HCPCS: 99024 ==

== ENCOUNTER 2025-09-07 10:11 | Emergency (ER) | payer MEDICARE, MEDICAID, SELFPAY ==
--- OUTSIDE RECORDS SUMMARY | 2024-07-03 03:00 | XMS_ITS ---
Author Organization [facility] Address [address] [place] [address] Care Team Providers Care Psychologist Experimental Name Role Phone Martínez Lovelace MD Primary Care Provider Unavailab Martínez Etienne Unavailable [phone] Migration, Provider Unavailable Unavailable REASON FOR VISIT EMR-[facility] Encounters Encounter Location Date Provider Diagnosis Migrated_Facility 0 0 07/03/2024 Provider Migration Plan Of Treatment Medication Medication Name Sig Start Date Stop Date Notes Percocet 5-325 MG Oral Tablet 1 Tablet every 8 hours PRN 06/26/2023 07/26/2023 *Reorder from [facility] an for eRx and Interaction Alerts* HYDROcodone-Acetaminop hen 5-325 MG Oral Tablet 1 Tablet Every 12 hours PRN 01/24/2023 02/23/2023 *Reorder from [facility] an for eRx and Interaction Alerts* Gabapentin 300 MG Capsule 1 Capsule Twice a Day Oral 02/27/2024 03/28/2024 oxyCODONE HCl 5 MG Tablet 1 Tablet every 6 hours PRN Oral 02/27/2024 03/28/2024 Progress Notes * Andrew CURRYCherelleB: 987 (40 yo F)Acc No.[id number]:07/03/2024 Patient: Lorraine HARDIN :1985 A ge:38 Y S ex:Female Address:[address] [place] [address], [id number] * Refills Stop Gabapentin Capsule, 300 MG, Oral, 1 Capsule Twice a Day Stop oxyCODONE HCl Tablet, 5 MG, Oral, 1 Tablet every 6 hours PRN Stop Percocet 5-325 MG Oral Tablet, 1 Tablet every 8 hours PRN Stop HYDROcodone-Acetaminophen 5-325 MG Oral Tablet, 1 Tablet Every 12 hours PRN Subjective: * Chief Complaints: * E MR-Gleacio * * Date:
--- OUTSIDE RECORDS SUMMARY | 2024-07-04 03:00 | XMS_ITS ---
Author Organization [facility] Address [address] [place] [address] Care Team Providers Care Planning Feeder Name Role Phone Martínez Lovelace MD Primary Care Provider Unavailab Martínez Etienne Unavailable [phone] Migration, Provider Unavailable Unavailable Allergies Allergen (clinical drug ingredient) Drug/Non Drug Allergy documented on EMR Reaction Allergy Type Onset Date Status ibuprofen Ibuprofen Unknown Drug Allergy Active Diclofenac Unknown Drug Allergy Active ketorolac Ketorolac Unknown Drug Allergy Active REASON FOR VISIT EMR-[facility] Medications Medication SIG (Take, Route, Frequency, Duration) Notes Start Date End Date Status Omeprazole *Pick strength-f orm from [facility] for eRX* Active Gabapentin *Pick strength-f orm from [facility] for eRX* Active Atenolol *Pick strength-f orm from [facility] for eRX* Active Amitriptyline *Reorder from [facility] for eRx and Interaction Alerts* Active Ferrous Gluconate *Pick strength -form from [facility] for eRX* Active Lisinopril *Pick strength-f orm from [facility] for eRX* Active Doxepin *Reorder from [facility] for eRx and Interaction Alerts* Active montelukast *Reorder from [facility] for eRx and Interaction Alerts* Active hydrOXYzine HCl *Pick strength-f orm from [facility] for eRX* Active Wellbutrin SR *Pick strength-f orm from [facility] for eRX* Active Spironolactone *Pick strength-f orm from [facility] for eRX* Active Metformin *Reorder from [facility] for eRx and Interaction Alerts* Active Social History Social History Additional Details Category Social Info Options Details Migrated Social History Migrated Social History Alcoholic beverages? - No, Currently on disability? - Yes, Drug or substance abuse? - No, Involved in any legal proceedings or lawsuits? - No, Marital Status - , Nonprescription drug use? - No, Participation in detoxification or rehabilitation - No, Smoking - 1 PPD, Smoking status (MU) - Current every day smoker, Working currently? - No Encounters Encounter Location Date Provider Diagnosis Migrated_Facility 0 0 07/04/2024 Provider Migration Plan Of Treatment No Information Progress Notes * Shannon CURRYLeonelB: 987 (40 yo F)Acc No.[id number]:07/04/2024 Patient: Lorraine HARDIN :1985 A ge:38 Y S ex:Female Address:[address] [place] [address] Subjective: * Chief Complaints: * E MR-Gelacio * Surgical History: Cholecystectomy * Family History: M igrated Family History: : chronic pain, D iabetes, H eart disease, v ascular disease. * Social History: M igrated Social History: M igrated Social History: Alcoholic beverages? - No, C urrently on disability? - Yes, D rug or substance abuse? - No, I nvolved in any legal proceedings or lawsuits? - No, M arital Status - , N onprescription drug use? - No, P articipation in detoxification or rehabilitation - No, S moking - 1 PPD, S moking status (MU) - Current every day smoker, W orking currently? - No. * Medications: T akingAtenolol , Notes to Pharmacist: *Pick strength-form from [facility] for eRX*hydrOXYzine HCl , Notes to Pharmacist: *Pick strength-form from [facility] for eRX*montelukast , Notes to Pharmacist: *Reorder from [facility] for eRx and Interaction Alerts*Doxepin , Notes to Pharmacist: *Reorder from [facility] for eRx and Interaction Alerts*Lisinopril , Notes to Pharmacist: *Pick strength-form from [facility] for eRX*Metformin , Notes to Pharmacist: *Reorder from [facility] for eRx and Interaction Alerts*Wellbutrin SR , Notes to Pharmacist: *Pick strength-form from [facility] for eRX*Spironolactone , Notes to Pharmacist: *Pick strength-form from [facility] for eRX*Ferrous Gluconate , Notes to Pharmacist: *Pick strength-form from [facility] for eRX*Amitriptyline , Notes to Pharmacist: *Reorder from [facility] for eRx and Interaction Alerts*Gabapentin , Notes to Pharmacist: *Pick strength-form from [facility] for eRX*Omeprazole , Notes to Pharmacist: *Pick strength-form from [facility] for eRX*Taking Atenolol , Notes to Pharmacist: *Pick strength-form from [facility] for eRX*Taking hydrOXYzine HCl , Notes to Pharmacist: *Pick strength-form from [facility] for eRX*Taking montelukast , Notes to Pharmacist: *Reorder from [facility] for eRx and Interaction Alerts*Taking Doxepin , Notes to Pharmacist: *Reorder from [facility] for eRx and Interaction Alerts*Taking Lisinopril , Notes to Pharmacist: *Pick strength-form from [facility] for eRX*Taking Metformin , Notes to Pharmacist: *Reorder from [facility] for eRx and Interaction Alerts*Taking Wellbutrin SR , Notes to Pharmacist: *Pick strength-form from [facility] for eRX*Taking Spironolactone , Notes to Pharmacist: *Pick strength-form from [facility] for eRX*Taking Ferrous Gluconate , Notes to Pharmacist: *Pick strength-form from [facility] for eRX*Taking Amitriptyline , Notes to Pharmacist: *Reorder from [facility] for eRx and Interaction Alerts*Taking Gabapentin , Notes to Pharmacist: *Pick strength-form from [facility] for eRX*Taking Omeprazole , Notes to Pharmacist: *Pick strength-form from [facility] for eRX* * Allergies: I buprofen: AllergyKetorolac: AllergyDiclofenac: Allergy * * Date:
--- OUTSIDE RECORDS SUMMARY | 2024-07-14 08:00 | XMS_ITS ---
Author Organization [facility] Address [address] [place] [address] Care Team Providers Care Senior Director Marketing Name Role Phone Radu ALMANZA, Martínez Primary Care Provider Unavailab Martínez Etienne Unavailable [phone] REASON FOR VISIT 1 mo RK Encounters Encounter Location Date Provider Diagnosis [facility] [address] [place] [place] [address] 07/14/2024 Martínez Venegas Plan Of Treatment No Information Progress Notes * Irene CURRYB: [birth year] (40 yo F)Acc No.[id number]:07/14/2024 Progress Notes Patient: Lorraine Newell Provider: Pavan Venegas D.O. :1985 A ge:38 Y S ex:Female Date:07/14/2024 Address:[address] [place], [place] [id number] Pcp:Martínez Lovelace MD Subjective: * Chief Complaints: * 1 mo RK Care Plan Details* * Electronic signature of Martínez Venegas DO on 09/07/2025 at 10:20 AM PROCESS HELPER Sign off status: Pending * Provider: Pavan Venegas D.O. Date: 09/13/2023 Generated for Aisha garcia/Mayco/Edwinaitting on: 10:20 AM PROCESS HELPER
--- OUTSIDE RECORDS SUMMARY | 2025-09-07 10:21 | XMS_ITS | Patient Health Record ---
Author Organization [facility] Address [address] [place] [address] Care Team Providers Care Table Tender Sludge Name Role Phone Radu ALMANZA, Martínez Primary Care Provider Unavailab Etienne Martínez Unavailable [phone] Na Pena Unavailable [phone] Nando Carmella Unavailable [phone] Allergies Allergen (clinical drug ingredient) Drug/Non Drug Allergy documented on EMR Reaction Allergy Type Onset Date Status ibuprofen Ibuprofen Unknown Drug Allergy Active Diclofenac Unknown Drug Allergy Active ketorolac Ketorolac Unknown Drug Allergy Active Results Component Value Reference Range Flag Notes Tox Results Reviewed date:01/25/2025 08:35:38 AM Interpretation: Performing Lab: Notes/Report: Urine Drug Screen (cup read) - [id number] Reviewed date:03/17/2025 03:38:11 PM Interpretation: Performing Lab: Notes/Report: OXY + Urine Confirmation Panel (in strument) - [id number] Reviewed date:03/23/2025 03:06:19 PM Interpretation: Performing Lab: [...] the U.S. Food and Drug Administration. Gabapentin >46940 <225 ng/mL > This test was developed [...] Food and Drug Administration. Tox Results Reviewed date:11/24/2024 02:49:57 PM Interpretation: Performing Lab: Notes/Report: Urine Confirmation Panel (in strument) - [id number] Reviewed date:01/24/2025 02:41:05 PM Interpretation: Performing Lab: [...] Administration. Urine Drug Screen (cup read) - [id number] Reviewed date:01/20/2025 02:13:11 PM Interpretation:Negative Performing Lab: Notes/Report: Negative Tox Results Reviewed date:03/23/2025 03:23:59 PM Interpretation: Performing Lab: Notes/Report: Urine Confirmation Panel (in strument) - [id number] Reviewed date:11/24/2024 02:49:57 PM Interpretation: Performing Lab: [...] the U.S. Food and Drug Administration. Gabapentin >50018 <225 ng/mL > This test was developed [...] Administration. Urine Drug Screen (cup read) - [id number] Reviewed date:11/18/2024 01:06:05 PM Interpretation:Negative Performing Lab: Notes/Report: Negative Reason For Referral No Information Medications Medication SIG (Take, Route, Frequency, Duration) Notes Start Date End Date Status Atenolol *Pick strength-form from [facility] for eRX* Active Wellbutrin SR *Pick strength-form from [facility] for eRX* Active Ferrous Gluconate *Pick strength-form from [facility] for eRX* Active Doxepin *Reorder from [facility] for eRx and Interaction Alerts* Active hydrOXYzine HCl *Pick strength-form from [facility] for eRX* Active Gabapentin *Pick strength-form from [facility] for eRX* Active Metformin *Reorder from [facility] for eRx and Interaction Alerts* Active Lisinopril *Pick strength-form from [facility] for eRX* Active Isosorbide Dinitrate 30 MG Tablet 1 tablet Orally Twice a day 01/20/2025 Active Omeprazole *Pick strength-form from [facility] for eRX* Active montelukast *Reorder from [facility] for eRx and Interaction Alerts* Active Amitriptyline *Reorder from [facility] for eRx and Interaction Alerts* Active Metoprolol Tartrate 25 MG Tablet 1 tablet with food Orally once a day 01/20/2025 Active Spironolactone *Pick strength-form from [facility] for eRX* Active Social History Social History [...] Status Risk Notes Problem Morbid obesity (disorder) (294537354) Morbid (severe) obesity due to excess calories (E66.01) 02/27/20 Active confirmed Problem Chronic pain syndrome (884728962) Chronic pain syndrome (G89.4) 02/27/20 Active confirmed Problem Thoracic spondylosis without myelopathy (052473471) Other spondylosis with radiculopathy, thoracic region (M47.24) 02/27/20 Active confirmed Problem Lumbosacral spondylosis without myelopathy (87082757) Other spondylosis with radiculopathy, lumbosacral region (M47.27) 02/27/20 Active confirmed Problem Degeneration of lumbar intervertebral disc (74461185) Other intervertebral disc degeneration, lumbar region (M51.36) 02/27/20 Active confirmed Problem Abnormal gait (13243207) Unspecified abnormalities of gait and mobility (R26.9) 02/27/20 Active confirmed Problem High risk drug monitoring status (557637176) longterm (current) use of opiate analgesic (Z79.891) Active confirmed Problem Thoracic radiculopathy (37729398) Thoracic radiculopathy (M54.14) Active confirmed Problem Thoracic spondylosis (734667772) Thoracic spondylosis (M47.814) Active confirmed Problem Lumbosacral radiculopathy (0666153) L-S radiculopathy (M54.17) Active confirmed Problem Lumbosacral spondylosis (532179664) Lumbosacral spondylosis (M47.817) Active confirmed Vital Signs Height-cm 160.02 cm 05/18/2025 Weight-kg 137.89 kg 05/18/2025 Height 63.00 in 05/18/2025 Weight 304 lbs 05/18/2025 BMI 53.85 kg/m2 05/18/2025 Encounters Encounter Location Date Provider Diagnosis [facility] [address] [address] 01/20/2025 Carmella Collier Chronic pain syndrom e G89.4 ; Thoracic radiculopathy M54.14 ; Degeneration of intervertebral disc of lumbar region with discogenic back pain M51.360 ; L-S radiculopathy M54.17 ; Unspecified abnormalities of gait and mobility R26.9 ; longterm (current) use of opiate analgesic Z79.891 ; Lumbosacral spondylosis M47.817 and Thoracic spondylosis M47.814 [facility] [address] [address] 11/18/2024 Carmella Collier Chronic pain syndrom e G89.4 ; Thoracic radiculopathy M54.14 ; Thoracic spondylosis M47.814 ; Degeneration of intervertebral disc of lumbar region with discogenic back pain M51.360 ; L-S radiculopathy M54.17 ; Lumbosacral spondylosis M47.817 ; Unspecified abnormalities of gait and mobility R26.9 and terminal supervisor (current) use of opiate analgesic Z79.891 [facility] [place] [address] [place] [phone] 09/15/2024 Martínez Venegas Chronic pain syndrom e G89.4 ; Thoracic radiculopathy M54.14 ; Thoracic spondylosis M47.814 ; Degeneration of intervertebral disc of lumbar region with discogenic back pain M51.360 ; L-S radiculopathy M54.17 ; Lumbosacral spondylosis M47.817 ; Unspecified abnormalities of gait and mobility R26.9 and longterm (current) use of opiate analgesic Z79.891 [facility] [address] [address] 05/18/2025 Martínez Venegas Chronic pain syndrom e G89.4 ; Spondylosis of thoracic spine with radiculopathy M47.24 ; Degeneration of intervertebral disc of lumbar region with discogenic back pain M51.360 ; L-S radiculopathy M54.17 ; Lumbosacral spondylosis M47.817 ; Unspecified abnormalities of gait and mobility R26.9 ; terminal supervisor (current) use of opiate analgesic Z79.891 ; Thoracic radiculopathy M54.14 and Thoracic spondylosis M47.814 [facility] [address] [address] 03/17/2025 Carmella Collier Chronic pain syndrom e G89.4 ; Thoracic radiculopathy M54.14 ; Degeneration of intervertebral disc of lumbar region with discogenic back pain M51.360 ; L-S radiculopathy M54.17 ; Unspecified abnormalities of gait and mobility R26.9 ; Thoracic spondylosis M47.814 ; Analgesic use Z79.899 and Lumbosacral spondylosis M47.817 [facility] [address] [address] 05/19/2025 Martínez Venegas [facility] [place] [address] [place] [phone] 03/17/2025 Martínez Venegas Chronic pain syndrom e G89.4 [facility] [address] [address] 02/08/2025 Martínez Venegas [facility] [address] [place] [address] 01/20/2025 Martínez Venegas [facility] [place] [address] [place] [place] [address] 12/14/2024 Carmella Collier [facility] [place] [address] [place] [place] [address] 11/18/2024 Martínez Venegas Thoracic radiculopathy M54.14 [facility] [place] [address] [place] [place] [address] 05/25/2025 Na mtz [facility] [place] [address] [place] [address] 05/24/2025 Martínez Venegas Assessments Encounter Date Diagnosis (ICD Code) Assessment Notes Treatment Notes Treatment Clinical Notes Section Notes 03/17/2025 Chronic pain syndrome (ICD-10 - G89.4) 03/17/2025 Chronic pain syndrome (ICD-10 - G89.4) [...] effects are noted. Last UDS and [place] [employer] reviewed today. Patient is advised that best [...] to abide by our urine testing policy. 09/15/2024 Thoracic radiculopathy (ICD-10 - M54.14) 09/15/2024 [...] months and follow up with her thereafter. 03/17/2025 Thoracic radiculopathy (ICD-10 - M54.14) 01/20/2025 Chronic pain syndrome (ICD-10 - G89.4) [...] effects are noted. Last UDS and [place] [employer]HR[employer] P[employer]ER reviewed today. Patient is advised that best [...] policy. 01/20/2025 Thoracic radiculopathy (ICD-10 - M54.14) 11/18/2024 Chronic [...] to monitor for treatment effectiveness and compliance. 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 [...] up with her on an as-needed basis. 11/18/2024 Thoracic radiculopathy (ICD-10 - M54.14) 05/18/2025 Spondylosis of thoracic spine with radiculopathy (ICD-10 - M47.24) 05/18/2025 Degeneration of intervertebral disc of lumbar [...] prescription Rx Sent To [facility] to sign 03/17/2025 Degeneration of intervertebral disc of lumbar region with discogenic back pain (ICD-10 - M51.360) 09/15/2024 Thoracic spondylosis (ICD-10 - M47.814) 03/17/2025 L-S radiculopathy (ICD-10 - M54.17) 09/15/2024 Degeneration of intervertebral disc of lumbar region with discogenic back pain (ICD-10 - M51.360) 01/20/2025 L-S radiculopathy (ICD-10 - M54.17) 11/18/2024 Thoracic spondylosis (ICD-10 - M47.814) 05/18/2025 L-S radiculopathy (ICD-10 - M54.17) 05/18/2025 Lumbosacral spondylosis (ICD-10 - M47.817) 11/18/2024 Degeneration of intervertebral disc of lumbar region with discogenic back pain (ICD-10 - M51.360) 01/20/2025 Unspecified abnormalities of gait and mobility (ICD-10 - R26.9) 09/15/2024 L-S radiculopathy (ICD-10 - M54.17) 03/17/2025 Unspecified abnormalities of gait and mobility (ICD-10 - R26.9) 09/15/2024 Lumbosacral spondylosis (ICD-10 - M47.817) 03/17/2025 Thoracic spondylosis (ICD-10 - M47.814) 01/20/2025 terminal supervisor (current) use of opiate analgesic (ICD-10 - Z79.891) 11/18/2024 L-S radiculopathy (ICD-10 - M54.17) 05/18/2025 Unspecified abnormalities of gait and mobility (ICD-10 - R26.9) 05/18/2025 longterm (current) use of opiate analgesic (ICD-10 - Z79.891) 11/18/2024 Lumbosacral spondylosis (ICD-10 - M47.817) 03/17/2025 Analgesic use (ICD-10 - Z79.899) 01/20/2025 Lumbosacral spondylosis (ICD-10 - M47.817) 09/15/2024 Unspecified abnormalities of gait and mobility (ICD-10 - R26.9) 09/15/2024 terminal supervisor (current) use of opiate analgesic (ICD-10 - Z79.891) 03/17/2025 Lumbosacral spondylosis (ICD-10 - M47.817) 01/20/2025 Thoracic spondylosis (ICD-10 - M47.814) 11/18/2024 Unspecified abnormalities of gait and mobility (ICD-10 - R26.9) 05/18/2025 Thoracic radiculopathy (ICD-10 - M54.14) 05/18/2025 Thoracic spondylosis (ICD-10 - M47.814) 11/18/2024 longterm (current) use of opiate analgesic (ICD-10 - [...] to abide by our urine testing policy. 09/15/2024 Other Francisco Fam, am scribing for Martínez Venegas. IMartínez, personally performed the services described in this documentation, as scribed by Francisco Alexandre, and it is both accurate and complete. 05/18/2025 Other Juliann Fam, am scribing for Dr. Vicente [...] End Date [employer] Medicare Replacement [address] [address] [place] [address] [id number] Lorraine Curry Self - patient is the insured 1 [place] [address] [place] [address] [id number] Lorraine Curry Self - patient is the insured 2 [place] [address] [address] [place] [address] [id number] CurryLorraine Self - patient is the insured Medical (General) History Surgical History Surgery Date(Month/Year) Cholecystectomy Hospitalization History Reason Date(Month/Year) See Surgical Hx
[2025-09-07 10:24] VITALS: BP 129/91; PULSE 93; RESP 20; TEMP 36.5; O2SAT 97
--- NOTE | 2025-09-07 10:31 | W.ED.RECABL ---
HPI - Recheck/Abnormal Lab/Rx General: Chief Complaint: Recheck/Abnormal Lab/Rx Stated Complaint: Back pain post surgery x2 weeks ago Time Seen by Provider: 09/07/25 10:17 Source: patient and EMS Mode of arrival: EMS Limitations: no limitations History of Present Illness: 40-year-old female who had had thoracic back surgery earlier this month. States she been having thoracic pain she rates a 9 out of 10 she states she also will have her wound checked she feels like it is warm to touch. She denies any fever denies any drainage denies any worse or improving factors. Related Data Home Medications ?Medication ?Instructions ?Recorded ?Confirmed albuterol sulfate 90 mcg/actuation 180 mcg inhalation PRN PRN SOB 08/03/25 08/23/25 aerosol inhaler empagliflozin 25 mg tablet 25 mg PO 1XD 08/03/25 08/23/25 (Jardiance) montelukast 10 mg tablet 10 mg PO 1XD 08/03/25 08/23/25 (Singulair) potassium chloride 20 mEq 20 meq PO 1XD 08/03/25 08/23/25 tablet,extended release Previous Rx's ?Medication ?Instructions ?Recorded insulin pump cart,automated,BT #5 ea 04/07/23 (Omnipod 5 G6 Pods (Gen 5) subcutaneous cartridge) 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,business development representative,cont #1 ea 04/28/23 (Dexcom G7 Risk Lead) Diabetic shoes with 3 sets of #1 ea 07/27/24 inserts insulin aspart U-100 100 unit/mL See Rx Instructions .Route 12/02/24 (3 mL) subcutaneous pen (Novolog .COMPLEX #27 mL FlexPen U-100 Insulin aspart) insulin glargine 100 unit/mL (3 See Rx Instructions .Route 12/02/24 mL) subcutaneous pen (Lantus .COMPLEX #45 mL Solostar U-100 Insulin) metoprolol succinate 25 mg 25 mg PO DAILY #90 tabs 12/14/24 tablet,extended release 24 hr isosorbide mononitrate 30 mg 30 mg PO BID #180 tabs 03/11/25 tablet,extended release 24 hr omeprazole 40 mg capsule,delayed 40 mg PO BID PRN acid reflux #180 06/13/25 release caps furosemide 40 mg tablet 40 mg PO DAILY #90 ea 07/07/25 sumatriptan succinate 50 mg tablet See Rx Instructions .Route 08/07/25 .COMPLEX #10 ea 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 sensor (Dexcom G7 #9 ea 08/29/25 Sensor device) budesonide-formoterol HFA 160 See Rx Instructions .Route 09/04/25 mcg-4.5 mcg/actuation aerosol .COMPLEX #10.2 grams inhaler (Symbicort) gabapentin 300 mg capsule See Rx Instructions .Route 09/04/25 .COMPLEX #90 caps oxycodone 5 mg tablet 5 mg PO Q8H PRN pain 7 days #21 09/05/25 tabs Allergies Allergy/AdvReac Type Severity Reaction Status Date / Time atorvastatin Allergy Severe transaminit Verified 09/07/25 10:29 is ibuprofen Allergy Mild ALGY-Swell Verified 09/07/25 10:29 Lip/Tongue/Throat acetaminophen (From Tylenol) Allergy liver Verified 09/07/25 10:29 reaction diclofenac Allergy ADR-Vomitin Verified 09/07/25 10:29 g ketorolac (From Toradol) Allergy sick Verified 09/07/25 10:29 Review of Systems Musc: Reports: back pain PFSH ED PFSH: Medical History Diabetic neuropathy Facet arthropathy, 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 Bilateral carpal tunnel syndrome Intellectual disability Bilateral pes planus Chondromalacia, right knee Neutrophilia Leukocytosis BMI 50.0-59.9, adult Benign essential HTN Major depressive disorder, recurrent severe without psychotic features Panic disorder Generalized anxiety disorder Migraine Tobacco use disorder Atypical chest pain Type 2 diabetes mellitus, with long-term current use of insulin Dyslipidemia Asthma Spinal stenosis, thoracic region Morbid obesity with BMI of 60.0-69.9, adult Bilateral chronic knee pain GERD (gastroesophageal reflux disease) Surgical History History of right knee surgery History of lumbar laminectomy History of hysterectomy with unilateral oophorectomy History of cholecystectomy Family History Father CAD (coronary artery disease) Diabetes Hypertension Seizures Hyperlipidemia Lung disease Psychiatric illness Stroke Clotting disorder Family/Other Hyperlipidemia Lung disease Psychiatric illness Stroke Mother Diabetes Hypertension Hyperlipidemia Other Chronic kidney disease (CKD) Denies family history of Dementia Anesthesia complication Social History (Reviewed 08/23/25 @ 11:53 by Filiberto España Smoking and tobacco/nicotine status: current every day tobacco/nicotine user cigarettes Packs smoked per day: 2 Years cigarettes smoked: 25 [ Other cigarette details: 2PPD, onset at 15yo] Second hand smoke exposure: Yes Alcohol intake: former Year of sobriety/quit date alcohol: 2017 Substance/Drug Use: current Substance/Drug use frequency: few times a month Caregiver/support person: Yes Household members: spouse and family Marital status: Current occupational status: disabled Current occupation: disabled Sexually active: Yes Do you think of yourself as: Straight/Heterosexual Current gender identity: Female Special lacey needs: No Agree to transfusion: Yes Female Reproductive History: Para: 1 Physical Exam Const: COMMON NORMALS: no acute distress, patient oriented x3 and healthy appearing HENMT: COMMON NORMALS: normocephalic and atraumatic HEAD & SCALP: normocephalic and atraumatic Neck/C-Spine: COMMON NORMALS: full ROM and supple Chest: COMMONS NORMALS: normal inspection of the chest Resp: COMMON NORMALS: normal respiratory effort Cardio: COMMON NORMALS: regular rate, regular rhythm and No murmurs present (Cardio) RATE: regular rate RHYTHM: regular rhythm Back/Pelvis: OTHER: Back exam is benign her incisions clean dry and intact with no erythema or drainage or dehiscence Extremity: COMMON NORMALS: normal to inspection and full ROM Neuro: COMMON NORMALS: patient oriented x3, moves all extremities and no focal motor deficits Psych: COMMON NORMALS: mental status grossly normal, Normal thought process present and cooperative THOUGHT PROCESS: Normal thought process present Skin: COMMON NORMALS: no rashes or lesions noted and no wounds GENERAL SKIN EXAM: no rashes or lesions noted Course Vital Signs: Vital signs: Vital Signs Temperature 97.7 F 09/07/25 10:24 Pulse Rate 93 09/07/25 10:24 Respiratory Rate 20 H 09/07/25 10:24 Blood Pressure 129/91 09/07/25 10:24 Pulse Oximetry 97 09/07/25 10:24 Oxygen Delivery Me thod Room Air 09/07/25 10:24 MDM - Recheck/Abnormal Lab/Rx Medical Decision Making Patient presents with back pain concern of her back wound differential includes abscess, cellulitis. Her exam here is benign her incisions clean dry and intact she has no signs of infection here she is afebrile. Patient is having back pain is likely postop pain and she has chronic pain as well did give her an IM shot of pain medicine she is stable for discharge and is to follow-up with her surgeon. Medical Records I reviewed the patient's medical records. No radiology studies performed this visit Discharge Plan Discharge Patient Disposition: Home Clinical Impression: Post-op pain Condition: Stable Prescriptions: No Action (DME) Omnipod 5 G6 Pods (Gen 5) Cartridge See Rx Instructions .Route Qty: 5 2RF Rx Instructions: As directed (DME) Diabetic shoes with 3 sets of inserts See Rx Instructions .Route .MEDSUPPLY Qty: 1 0RF Rx Instructions: As directed HOME insulin glargine [Lantus Solostar U-100 Insulin] 100 unit/mL (3 mL) insulin pen See Rx Instructions .ROUTE .COMPLEX Qty: 45 3RF Dose Instruction: inject 50 units (0.5ml) SUBCUTANEOUSLY EVERY DAY Rx Instructions: inject 50 units (0.5ml) SUBCUTANEOUSLY EVERY DAY insulin aspart U-100 [Novolog FlexPen U-100 Insulin] 100 unit/mL (3 mL) insulin pen See Rx Instructions .ROUTE .COMPLEX Qty: 27 3RF Dose Instruction: inject 10 units SUBCUTANEOUSLY THREE TIMES DAILY Rx Instructions: start at 5 units a day then go to 10 units SUBCUTANEOUSLY THREE TIMES DAILY metoprolol succinate 25 mg tablet extended release 24 hr 25 mg PO DAILY Qty: 90 3RF omeprazole 40 mg capsule,delayed release(DR/EC) 40 mg PO BID PRN (Reason: acid reflux) Qty: 180 0RF (DME) Dexcom G7 Risk Lead Misc See Rx Instructions .Route Qty: 1 0RF Rx Instructions: As directed isosorbide mononitrate 30 mg tablet extended release 24 hr 30 mg PO BID Qty: 180 3RF furosemide 40 mg tablet 40 mg PO DAILY Qty: 90 3RF sumatriptan succinate 50 mg tablet See Rx Instructions .ROUTE .COMPLEX Qty: 10 1RF Dose Instruction: TAKE 1 TABLET BY MOUTH EVERY 2 HOURS NEEDED FOR migraine HEADACHE. max of FOUR tablets PER 24 hours Rx Instructions: TAKE 1 TABLET BY MOUTH EVERY 2 HOURS NEEDED FOR migraine HEADACHE. max of FOUR tablets PER 24 hours (DME) Dexcom G7 Sensor Device See Rx Instructions .ROUTE .COMPLEX Qty: 9 0RF Dose Instruction: USE DIRECTED Rx Instructions: USE DIRECTED gabapentin 300 mg capsule See Rx Instructions .ROUTE .COMPLEX Qty: 90 0RF Dose Instruction: take 1 capsule BY MOUTH THREE TIMES DAILY Rx Instructions: take 1 capsule BY MOUTH THREE TIMES DAILY budesonide-formoterol [Symbicort] 160-4.5 mcg/actuation HFA aerosol inhaler See Rx Instructions .ROUTE .COMPLEX Qty: 10.2 0RF Dose Instruction: INHALE TWO PUFFS TWICE DAILY FOR copd Rx Instructions: INHALE TWO PUFFS TWICE DAILY FOR copd oxycodone 5 mg tablet 5 mg PO Q8H PRN (Reason: pain) 7 Days Qty: 21 0RF albuterol sulfate 90 mcg/actuation HFA aerosol inhaler 180 mcg inhalation PRN PRN (Reason: SOB) Jardiance 25 mg tablet 25 mg PO 1XD montelukast [Singulair] 10 mg tablet 10 mg PO 1XD potassium chloride 20 mEq tablet extended release 20 meq PO 1XD Discharge Orders: Discharge ED (Routine); Ordered 09/07/25 Ordered By: Kat Yang Referrals: Steve Rios DO [Physician, Orthopedics] - 4-7 days Lory Olmstead MD [Primary Care Provider, Family Practice] Discharge Diet: Advance as tolerated Discharge Activity: Resume usual activity Patient Instructions: Back Pain (ED) Print Language: Sinhala Coding Level of Care Code ED Surfacing Machine Operator for Leonela Escobedo
[2025-09-07] MEDS: HYDROmorphone 0.5 MG/0.5 ML INJ 1 MG IM (10:32)
[2025-09-07 10:38] VITALS: BP 129/91; PULSE 93; RESP 18; O2SAT 97
[2025-09-07 10:47] VITALS: BP 127/87; PULSE 96; RESP 16; O2SAT 97
== END 2025-09-07 10:48 | disposition home or self-care (01) ==
PROVIDERS: Emergency Provider Emergency Medicine; PCP Family Medicine
DX: G89.18 Other acute postprocedural pain (principal); Z79.4 Long term (current) use of insulin; F17.210 Nicotine dependence, cigarettes, uncomplicated; E78.5 Hyperlipidemia, unspecified; E11.40 Type 2 diabetes mellitus with diabetic neuropathy, unspecified; I10 Essential (primary) hypertension
CPT/HCPCS: 96372; 99284; J1171